=== PATIENT | female | born 1945 | race Caucasian/White ===

== ENCOUNTER 2022-04-24 19:10 | Emergency (ER) | payer MEDICARE, BC, SELFPAY ==
[2022-04-24 19:56] VITALS: BP 141/92; PULSE 82; RESP 18; TEMP 36.8; O2SAT 90; BMI 17.4
--- NOTE | 2022-04-24 20:39 | ED_ITS ---
HPI - General Adult General Chief complaint: Skin/Abscess/Foreign Body Stated complaint: Infected Skin Tears Time Seen by Provider: 04/24/22 20:30 History of Present Illness HPI narrative: Elderly female coming in today with concerns about infection and several skin tears. Patient states that she had a puppy scratch her lower leg about 1 week ago. About 2 days ago she noticed some increasing erythema around the scratch. She also has a skin tear to the left elbow that she sustained last night when hitting the door. She denies any pain in the elbow. Again states that her skin tears easily. She also has a couple more tears of the lower extremities from of being in the things. She has chronic lease edematous legs, she states that she elevates them at night when she sleeps and frequently throughout the day. She does not tolerate compression stockings. She denies any systemic symptoms today. Denies any drainage from the dog scratch. States that her immunizations are up-to-date. Related Data Home Medications Medication Instructions Recorded Confirmed albuterol sulfate 90 mcg/actuation INHALATION 04/24/22 aerosol inhaler (Ventolin HFA) budesonide 160 mcg-glycopyr 9 2 inh INHALATION QAM AND QPM 04/24/22 04/24/22 mcg-formot 4.8 mcg/actuation HFA inhaler (Breztri Aerosphere) Previous Rx's Medication Instructions Recorded cephalexin 500 mg capsule 500 mg PO TID 7 Days #21 cap 04/24/22 Allergies Allergy/AdvReac Type Severity Reaction Status Date / Time erythromycin base Allergy Intermediate dry heaves Verified 04/24/22 20:05 Penicillins Allergy Intermediate fainted Verified 04/24/22 20:05 tetanus toxoid, adsorbed Allergy Intermediate Verified 04/24/22 20:05 Review of Systems Status of ROS: Reports: 6 or more systems reviewed and unremarkable except as noted in History and below Exam Narrative: Exam Narrative: Thin, well-developed patient in no acute distress. Alert and oriented. Answers questions appropriately. Mood and affect are appropriate. Thoughts are goal oriented and rational. No tangential or magical thinking noted. Patient speaks in full sentences without needing to catch her breath. HEENT: Normocephalic atraumatic. Pupils are equally round reactive to light. Extraocular muscles are intact. Conjunctivae are moist without any icterus noted. Extremities: She has 2+ pitting edema bilaterally. On the left lower extremity she has a healing skin flap that has already started scabbing. Around it she has a small halo of erythema that is not hot to touch. The skin is not indurated or significantly swollen. She has a couple very superficial scratches on the same extremity. On the left elbow she has a superficial skin tear. No signs of infection noted. Const: Vital Signs, click to edit/add: Vital Signs - 24 hr 04/24/22 19:56 Temperature 98.2 F Pulse Rate [Left P ulse Oximeter] 82 Respiratory Rate 18 Blood Pressure [Ri ght Upper Arm] 141/92 H Pulse Oximetry 90 Course Vital Signs Vital signs: Initial Vital Signs Temperature 98.2 F 04/24/22 19:56 Temperature Source Temporal Artery Scan 04/24/22 19:56 Pulse Rate 82 04/24/22 19:56 Respiratory Rate 18 04/24/22 19:56 Blood Pressure 141/92 H 04/24/22 19:56 Blood Pressure Mean 108 04/24/22 19:56 Blood Pressure Position Sitting 04/24/22 19:56 Pulse Oximetry 90 04/24/22 19:56 Oxygen Delivery Method 04/24/22 19:56 Vital Signs Temperature 98.2 F 04/24/22 19:56 Pulse Rate 82 04/24/22 19:56 Respiratory Rate 18 04/24/22 19:56 Blood Pressure 141/92 H 04/24/22 19:56 Pulse Oximetry 90 04/24/22 19:56 Temperature 98.2 F 04/24/22 19:56 Pulse Rate 82 04/24/22 19:56 Respiratory Rate 18 04/24/22 19:56 Blood Pressure 141/92 H 04/24/22 19:56 Pulse Oximetry 90 04/24/22 19:56 Medical Decision Making MDM Narrative Medical decision making narrative: Elderly female with multiple skin tears. I discussed with her that I do not feel that any of them look infected at this time however we did outline the dog scratch and discuss that if erythema extends beyond this all itching go ahead start taking the antibiotic that will be called to the pharmacy for her. Otherwise she can continue to elevate her legs and treat symptomatically. We discussed wound hygiene. We discussed reasons to return for follow-up. She was agreeable had no other questions. We also did go ahead and re-dress her other wounds. Discharge Plan Discharge Clinical Impression: Skin tear Patient Disposition: Home, Self-Care Condition: Stable Additional Instructions: Your leg does not appear to be infected to day. However, if the redness starts increase beyond the drawn borders then okay to start antibiotic which has already been called and will be ready at the pharmacy for you. If redness stays within those boundaries you do not need to take an antibiotic. Make sure you clean your other wounds daily with soap and water and use an antibiotic cream such as Neosporin in all those areas. Continue to elevate your legs as much as you can throughout the day. Prescriptions: New cephalexin 500 mg capsule 500 mg PO TID 7 Days Qty: 21 0RF No Action albuterol sulfate [Ventolin HFA] 90 mcg/actuation HFA aerosol inhaler INHALATION 0RF Label Comments: INHALE 2 PUFFS BY MOUTH EVERY 4 HOURS NEEDED FOR WHEEZING AND FOR SHORTNESS OF BREATH Regancarlos manuel Aerosphere 160-9-4.8 mcg/actuation HFA aerosol inhaler 2 inh inhalation QAM AND QPM 0RF Stand Alone Forms: [employer] Info Instructions
--- NOTE | 2022-04-24 21:03 | PC.NURSE ---
wbc 27.[address] Kennedy
--- NOTE | 2022-04-25 19:31 | ED.NURSE ---
[facility] pharmacy called in regards to reaction between rx cephalexin and pt PCN allergy, consulted with MD Price - verbal to tell feleciahydaburgerick to not change abx order.
== END 2022-04-24 21:08 | disposition home or self-care (01) ==
PROVIDERS: Emergency Provider Family Medicine
DX: S81.812A Laceration without foreign body, left lower leg, initial encounter (principal); W54.8XXA Other contact with dog, initial encounter
CPT/HCPCS: 99283; 99284

== ENCOUNTER 2022-05-10 12:43 | Outpatient (CLI) | payer MEDICARE, BC, SELFPAY | END 2022-05-10 12:44 | disposition home or self-care (01) | LOC: WOUND 12:44 | PROVIDERS: Visit Provider Nurse Practitioner Family | DX: I87.312 Chronic venous hypertension (idiopathic) with ulcer of left lower extremity (principal); L97.822 Non-pressure chronic ulcer of other part of left lower leg with fat layer exposed; S51.002A Unspecified open wound of left elbow, initial encounter; I89.0 Lymphedema, not elsewhere classified | CPT/HCPCS: 11042; 97602; 99212 ==

== ENCOUNTER 2022-05-17 13:08 | Outpatient (CLI) | payer MEDICARE, BC, SELFPAY | END 2022-05-17 13:09 | disposition home or self-care (01) | LOC: WOUND 13:08 | PROVIDERS: Visit Provider Nurse Practitioner Family | DX: I87.312 Chronic venous hypertension (idiopathic) with ulcer of left lower extremity (principal); I89.0 Lymphedema, not elsewhere classified; L97.822 Non-pressure chronic ulcer of other part of left lower leg with fat layer exposed | CPT/HCPCS: 11042 ==

== ENCOUNTER 2022-05-24 10:56 | Outpatient (CLI) | payer MEDICARE, BC, SELFPAY | END 2022-05-24 10:57 | disposition home or self-care (01) | LOC: WOUND 10:56 | PROVIDERS: Visit Provider Nurse Practitioner Family | DX: I89.0 Lymphedema, not elsewhere classified (principal); I87.312 Chronic venous hypertension (idiopathic) with ulcer of left lower extremity; L97.829 Non-pressure chronic ulcer of other part of left lower leg with unspecified severity | CPT/HCPCS: 99212 ==

== ENCOUNTER 2022-07-20 11:12 | Outpatient (CLI) | payer MEDICARE, BC, SELFPAY | END 2022-07-20 11:13 | disposition home or self-care (01) | LOC: WOUND 11:13 | PROVIDERS: Visit Provider Nurse Practitioner Family | DX: S80.812A Abrasion, left lower leg, initial encounter (principal); K04.7 Periapical abscess without sinus | CPT/HCPCS: 99214 ==

== ENCOUNTER 2022-08-03 09:39 | Outpatient (CLI) | payer MEDICARE, BC, SELFPAY | END 2022-08-03 09:40 | disposition home or self-care (01) | LOC: WOUND 09:39 | PROVIDERS: PCP Nurse Practitioner Family; Visit Provider Physician Assistant Surgical | DX: S60.512A Abrasion of left hand, initial encounter (principal); W22.8XXA Striking against or struck by other objects, initial encounter; S80.812A Abrasion, left lower leg, initial encounter | CPT/HCPCS: 99213 ==

== ENCOUNTER 2022-08-10 09:31 | Outpatient (CLI) | payer MEDICARE, BC, SELFPAY | END 2022-08-10 09:32 | disposition home or self-care (01) | LOC: WOUND 09:31 | PROVIDERS: PCP Nurse Practitioner Family; Visit Provider Physician Assistant Surgical | DX: S60.512A Abrasion of left hand, initial encounter (principal) | CPT/HCPCS: 11042 ==

== ENCOUNTER 2022-08-17 12:48 | Outpatient (CLI) | payer MEDICARE, BC, SELFPAY | END 2022-08-17 12:49 | disposition home or self-care (01) | LOC: WOUND 12:48 | PROVIDERS: PCP Nurse Practitioner Family; Visit Provider Physician Assistant Surgical | DX: S80.812A Abrasion, left lower leg, initial encounter (principal) | CPT/HCPCS: 99213 ==

== ENCOUNTER 2022-12-17 20:27 | Inpatient (IN) | payer MEDICARE, BC, SELFPAY ==
[2022-12-17] VITALS (19 sets, daily range): BP systolic 150–172; BP diastolic 105–125; PULSE 82–105; RESP 24; TEMP 36.6; O2SAT 67–99; BMI 18.4
--- NOTE | 2022-12-17 20:57 | ED.GENADULT ---
HPI - General Adult General Time Seen by Provider: 20:57 Date Seen: 12/17/22 Chief complaint: Shortness of Breath/Dyspnea Stated complaint: Trouble Breathing,Fluid Retention Time Seen by Provider: 12/17/22 20:38 Source: patient and RN notes reviewed Mode of arrival: ambulatory Limitations: no limitations History of Present Illness HPI narrative: Patient is a 77-year-old female accompanied by a family member coming in with increased difficulty breathing, increased lower leg swelling. She states her legs usually are not that swollen, has probably been worsening at least over the last few days. She notes her legs are weeping fluid which they have not been known to do. Her breathing really worsened today. She is on home oxygen and does endorse new diagnosis of CHF with underlying COPD. She is on a diuretic and has been taking it. She feels like she is coughing more, producing clear sputum. She feels like she has been having increasing chest congestion the last couple of days for sure. The family member notes that 3 nights ago she called stating that she had chest heaviness like somebody was sitting on her chest. She declines any significant symptoms like that at this time. She has had no fevers. She came into the ER without oxygen and was in the 60s on arrival but rebounded quickly back up into the 90s with 2 L nasal cannula oxygen. Related Data Home Medications Medication Instructions Recorded Confirmed albuterol sulfate 90 mcg/actuation inhalation 04/24/22 aerosol inhaler (Ventolin HFA) budesonide 160 mcg-glycopyr 9 2 inh inhalation QAM AND QPM 04/24/22 12/17/22 mcg-formot 4.8 mcg/actuation HFA inhaler (Breztri Aerosphere) rosuvastatin 10 mg tablet 10 mg PO QPM 12/17/22 12/17/22 spironolactone 25 mg tablet 12.5 mg PO DAILY 12/17/22 12/17/22 torsemide 5 mg tablet 5 mg PO DAILY 12/17/22 12/17/22 Previous Rx's Medication Instructions Recorded cephalexin 500 mg capsule 500 mg PO TID 7 days #21 caps 04/24/22 Allergies Allergy/AdvReac Type Severity Reaction Status Date / Time erythromycin base Allergy Intermediate dry heaves Verified 04/24/22 20:05 Penicillins Allergy Intermediate fainted Verified 04/24/22 20:05 tetanus toxoid, adsorbed Allergy Intermediate Verified 04/24/22 20:05 Review of Systems Status of ROS: Reports: 10 or more systems reviewed and unremarkable except as noted in History and below PFSH [facility] Social History Smoking Status: Current every day smoker What tobacco products do you use: cigarettes How often do you have a drink containing alcohol: 4 or more times a week How many standard drinks containing alcohol do you have on a typical day: 1 or 2 How often do you have six or more drinks on one occasion: Never AUDIT-C Alcohol total score: 4 Non-prescribed substance use: denies use service: No Exam Const: Vital Signs, click to edit/add: Vital Signs - 24 hr 12/17/22 20:42 12/17/22 21:07 12/17/22 21:07 Temperature 97.8 F Pulse Rate Pulse Rate [Pulse Oximeter] 88 Respiratory Rate 24 Blood Pressure Blood Pressure [Le ft Upper Arm] 150/122 H Pulse Oximetry 99 98 97 Oxygen Delivery Me thod Nasal Cannula Nasal Cannula Oxygen Flow Rate 2 2 12/17/22 21:00 12/17/22 21:02 12/17/22 21:15 Temperature Pulse Rate 90 92 90 Pulse Rate [Pulse Oximeter] Respiratory Rate Blood Pressure 152/105 H Blood Pressure [Le ft Upper Arm] Pulse Oximetry 96 95 96 Oxygen Delivery Me thod Oxygen Flow Rate 12/17/22 21:30 12/17/22 21:32 12/17/22 21:45 Temperature Pulse Rate 91 90 86 Pulse Rate [Pulse Oximeter] Respiratory Rate Blood Pressure 168/125 H Blood Pressure [Le ft Upper Arm] Pulse Oximetry 96 95 97 Oxygen Delivery Me thod Oxygen Flow Rate 12/17/22 22:09 12/17/22 22:15 Temperature Pulse Rate 95 87 Pulse Rate [Pulse Oximeter] Respiratory Rate Blood Pressure Blood Pressure [Le ft Upper Arm] Pulse Oximetry 86 L 94 Oxygen Delivery Me thod Oxygen Flow Rate Documenting provider has reviewed patient's vital signs: yes Common normals: no apparent distress, average body habitus, oriented x3, no limitations and alert General appearance: cooperative, comfortable, well kempt and well developed Other: Has nasal cannula oxygen on, is doing some pursed lipped breathing in between talking to me. Certainly can manage long phrases. HENMT: Common normals: normocephalic, head/scalp atraumatic, hearing grossly normal bilaterally, external ears normal and external nose normal Head and scalp: normocephalic and atraumatic Nose: external nose normal External ear: external ears normal Eye: Common normals: PERRL, EOMs intact bilaterally, conjunctivae normal and no scleral icterus Conjunctiva: conjunctiva(e) normal Pupil: PERRL Neck & C-Spine: Common normals: full ROM, no lymphadenopathy, supple, no meningeal signs and thyroid normal Thyroid: thyroid normal Chest: Common normals: inspection of chest normal and palpation of chest normal Resp: Other: Has crackles bilateral bases, more diminished breath sounds up higher on her left posterior lung field in comparison to the right. Near the top of her right posterior lung field do hear some better but distant lung sounds. Cardio: Common normals: regular rate, regular rhythm, S1 normal heart sound, S2 normal heart sound, no gallops, no clicks and no murmurs Rate: regular rate Rhythm: regular rhythm Heart sounds: S1 normal and S2 normal GI: Common normals: Normal to inspection, nondistended, normoactive bowel sounds present, soft to palpation, non-tender, no hepatosplenomegaly and no masses Palpation: soft and no hepatosplenomegaly Extremity: Other: Has about 3+ pitting edema throughout both lower extremities. Note no overlying erythema, have no concerns about secondary infection at this time. Neuro: Common normals: oriented x3 and moves all extremities Sensorium/orientation: alert Meningeal signs: no meningeal signs Psych: Appearance: well kempt Course Course Hospital Course: Will maintain patient on oxygen here, cardiac monitoring and pulse oximetry. Will start with a portable chest x-ray looking for infectious etiology in CHF. She understands that we may need a chest CT. Will get a full complement of labs including labs for CHF, troponin, electrolytes, D-dimer. May need to consider treatment for COPD exacerbation, pneumonia, CHF. Obviously am considering thromboembolic disease as well as ischemic cardiac disease in this workup. Reevaluation(s) Reevaluation #1: Have reviewed with patient that this seems to be a fluid buildup for probable congestive heart failure at this time with peripheral edema. I am not sure when she has had a most recent echo, may need to be considered but will leave this to the hospitalist as I could not get an echo at this time anyway. She is responding to the IV Lasix and states she has already went to the bathroom twice. We reviewed that there is no pulmonary emboli and does not seem to be definitive infection in the lungs at this time. She is worried about missing her 's neurology appointment tomorrow but her son reassures her that he will be going. Reviewed with her that they certainly can call her via phone and conference her in. This seemed to settle her a bit. I do not think she is stable for discharge and certainly not medically stable to be managed outpatient. Time: 23:49 Consultations Consultation #1: Had spoken with Dr. Silva now and earlier about this patient. Her chest CT PE protocol is not showing any thromboembolic disease, no definitive evidence of infection. With her D-dimer being elevated in bilateral lower extremity edema, bilateral lower extremity ultrasounds may need to be considered. Legs look quite symmetric, seems to be more edema with the weeping she is having. I feel that ultrasounds certainly could be done tomorrow do not feel that the clockmaker apprentice needs to come in emergently overnight. The hospitalists was given my thoughts on this, he states that they will take care of any subsequent imaging. Time: 23:44 Vital Signs Vital signs: Initial Vital Signs Temperature 97.8 F 12/17/22 20:42 Temperature Source Temporal Artery Scan 12/17/22 20:42 Pulse Rate 88 12/17/22 20:42 Respiratory Rate 24 12/17/22 20:42 Blood Pressure 150/122 H 12/17/22 20:42 Blood Pressure Mean 131 12/17/22 20:42 Pulse Oximetry 99 12/17/22 20:42 Oxygen Delivery Method 12/17/22 20:42 Oxygen Flow Rate 2 12/17/22 20:42 Vital Signs Temperature 97.8 F 12/17/22 20:42 Pulse Rate 88 12/17/22 20:42 Respiratory Rate 24 12/17/22 20:42 Blood Pressure 150/122 H 12/17/22 20:42 Pulse Oximetry 99 12/17/22 20:42 Oxygen Delivery Method 12/17/22 20:42 Oxygen Flow Rate 2 12/17/22 20:42 Temperature 97.8 F 12/17/22 20:42 Pulse Rate 87 12/17/22 22:15 Respiratory Rate 24 12/17/22 20:42 Blood Pressure 168/125 H 12/17/22 21:32 Pulse Oximetry 94 12/17/22 22:15 Oxygen Delivery Method 12/17/22 21:07 Oxygen Flow Rate 2 12/17/22 21:07 Medical Decision Making Lab Data Labs: Lab Results 12/17/22 12/17/22 12/17/22 Range/Units 21:20 21:20 21:20 WBC 5.73 (4.50-11.00) K/uL RBC 5.20 (4.00-5.20) m/uL Hgb 14.0 (12.0-16.0) gm/dL Hct 45.5 (33.0-51.0) % MCV 88 (80-100) fL MCH 27 (26-34) pg MCHC 31 L (32-36) gm/dL RDW Coeff of Lane 25.1 H (11.5-15.5) % Plt Count 141 (140-440) K/uL Neut % (Auto) 71.4 (42.0-72.0) % Lymph % (Auto) 15.0 L (20-44) % [place] % (Auto) 11.7 H (0.0-11.0) % Eos % (Auto) 1.4 (0.0-7.0) % Baso % (Auto) 0.3 (0.0-3.0) % Neut # (Auto) 4.09 (1.7-7.0) K/uL Lymph # (Auto) 0.90 (0.90-2.90) K/uL [place] # (Auto) 0.70 (0.00-0.90) K/UL Eos # (Auto) 0.08 (0.00-0.50) K/uL Baso # (Auto) 0.02 (0.00-0.30) K/uL D-Dimer Quant (PE/DVT) 2.48 H (0.00-0.50) ug/ml VBG pH (7.32-7.43) VBG pCO2 (40-50) mmHG VBG pO2 (25-47) mmHG VBG HCO3 (21-28) mmol/L Sodium 133 L (135-149) mmol/L Potassium 4.2 (3.6-5.1) mmol/L Chloride 101 (96-114) mmol/L Carbon Dioxide 31 (20-32) mmol/L BUN 17 (7-30) mg/dL Creatinine 0.6 (0.5-1.5) mg/dL Estimated Creat Clear 35.09 Estimated GFR 92 ml/min Glucose 103 (60-115) mg/dL Lactate (0.5-1.9) mmol/L Calcium 8.4 (8.4-10.6) mg/dL Magnesium 2.2 (1.5-2.6) mg/dL Total Bilirubin 0.6 (0.1-1.5) mg/dL AST 30 (12-35) U/L ALT 22 (4-35) U/L Alkaline Phosphatase 84 (40-150) U/L C-Reactive Protein 1.1 H (0.5-1.0) mg/dL NT-Pro-B Natriuret Pep 9990 pg/mL Total Protein 6.2 (6.0-8.3) g/dL Albumin 3.5 (3.3-5.0) g/dL Procalcitonin 0.09 (<0.50) ng/mL SARS-CoV-2 (PCR) (Negative) Influenza Type A (PCR) (Negative) Influenza Type B (PCR) (Negative) RSV (PCR) (Negative) POC Troponin I (0.01-0.04) ng/ml 12/17/22 12/17/22 12/17/22 Range/Units 21:20 21:20 21:20 WBC (4.50-11.00) K/uL RBC (4.00-5.20) m/uL Hgb (12.0-16.0) gm/dL Hct (33.0-51.0) % MCV (80-100) fL MCH (26-34) pg MCHC (32-36) gm/dL RDW Coeff of Lane (11.5-15.5) % Plt Count (140-440) K/uL Neut % (Auto) (42.0-72.0) % Lymph % (Auto) (20-44) % [place] % (Auto) (0.0-11.0) % Eos % (Auto) (0.0-7.0) % Baso % (Auto) (0.0-3.0) % Neut # (Auto) (1.7-7.0) K/uL Lymph # (Auto) (0.90-2.90) K/uL [place] # (Auto) (0.00-0.90) K/UL Eos # (Auto) (0.00-0.50) K/uL Baso # (Auto) (0.00-0.30) K/uL D-Dimer Quant (PE/DVT) (0.00-0.50) ug/ml VBG pH 7.350 (7.32-7.43) VBG pCO2 58 H (40-50) mmHG VBG pO2 41.2 (25-47) mmHG VBG HCO3 32 H (21-28) mmol/L Sodium (135-149) mmol/L Potassium (3.6-5.1) mmol/L Chloride (96-114) mmol/L Carbon Dioxide (20-32) mmol/L BUN (7-30) mg/dL Creatinine (0.5-1.5) mg/dL Estimated Creat Clear Estimated GFR ml/min Glucose (60-115) mg/dL Lactate 0.6 (0.5-1.9) mmol/L Calcium (8.4-10.6) mg/dL Magnesium (1.5-2.6) mg/dL Total Bilirubin (0.1-1.5) mg/dL AST (12-35) U/L ALT (4-35) U/L Alkaline Phosphatase (40-150) U/L C-Reactive Protein (0.5-1.0) mg/dL NT-Pro-B Natriuret Pep pg/mL Total Protein (6.0-8.3) g/dL Albumin (3.3-5.0) g/dL Procalcitonin (<0.50) ng/mL SARS-CoV-2 (PCR) Negative SARS-CoV-2 (Negative) Influenza Type A (PCR) Negative PCR FLU A (Negative) Influenza Type B (PCR) Negative PCR FLU B (Negative) RSV (PCR) Negative PCR RSV (Negative) POC Troponin I 0.02 (0.01-0.04) ng/ml Imaging Data Chest x-ray: Attestation: I have reviewed the pertinent imaging results. Radiologist's impression: Patient: COLLETTE RAY Facility:?[facility] Patient ID:?[id number] Site Patient ID:?[id number]. Site :?[id number] Study:?XRay Chest ap portable-12/17/2022 9:34:51 PM Ordering Physician:Rigoberto Adame Final Report: INDICATION: .SOB, hx of CHF/COPD TECHNIQUE: Chest 1 views. COMPARISON: September 2019. FINDINGS: Lungs: Normal lung volume. No consolidation. Vascular redistribution. Left basilar atelectasis. Pleura: Small left pleural effusion. Heart and Mediastinum: Cardiomegaly. Atherosclerotic aorta. Bones: No acute displaced osseous process. Abdominal aortic stent graft. IMPRESSION: Left basilar atelectasis. Superimposed infection is considered in the differential if clinically warranted. Small left pleural effusion. Dictated by Rod Hauser MD @ 12/17/2022 9:49:00 PM (Electronic Signature) CT scan - chest: Attestation: I have reviewed the pertinent imaging results. Radiologist's impression: Patient: COLLETTE RAY Facility:?[facility] Patient ID:?[id number] Site Patient ID:?[id number]. Site :?[id number] Study:?CT Chest Angio with 95cc [id number] PE Protocol-12/17/2022 11:08:07 PM Ordering Physician:Rigoberto Adame Final Report: INDICATION: .SOB, ELEVATED D DIMER TECHNIQUE: CT chest PE was acquired with 95 cc Isovue 370 IV contrast. COMPARISON: CTs summer 2018 FINDINGS: Pulmonary Arteries: No CT evidence of pulmonary thromboembolic disease. Pulmonary trunk enlargement suggestive of pulmonary artery hypertension. Heart and Mediastinum: The visualized portions of the thyroid are normal. No axillary or supraclavicular lymphadenopathy. No mediastinal, hilar or retrocrural lymphadenopathy. Cardiomegaly. Ectasia of the ascending aorta. Tiny ulcer like projection in the aortic arch. Atherosclerotic calcifications of the aorta and its branches. Coronary artery calcifications. Mitral annular calcifications. Perirenal abdominal aortic aneurysm with fenestrated aortic stent graft extending inferiorly off the field of view. Lungs and Airways: Centrilobular emphysema. No mass or consolidation. Biapical subpleural fibrosis. Trace. Basilar subsegmental atelectasis. Dependent predominant areas of peripheral endobronchial mucous plugging. Retained tracheal secretions. Pleura: Small left and trace right pleural effusions. Abdomen: The visualized upper abdominal organs are unremarkable. Bones and soft tissues: L2 Schmorl`s node deformity. Interval complete collapse of the T5 vertebral body, age indeterminate. IMPRESSION: 1. No CT evidence of pulmonary thromboembolic disease. 2. No intrathoracic mass or consolidation. 3. Basilar subsegmental areas of atelectasis with associated peripheral endobronchial mucous plugging. 4. Interval complete collapse of the T5 vertebral body, age indeterminate. Recommend correlation with localized physical exam to assess for focal tenderness to palpation and chronicity. Please note that all CT scans at this facility use dose modulation, iterative reconstruction, and/or weight-based dosing when appropriate to reduce radiation dose to as low as reasonably achievable. Dictated by Rod Hauser MD @ 12/17/2022 11:40:25 PM (Electronic Signature) ECG Data Attestation: I personally reviewed and interpreted this ECG as follows: (Normal sinus rhythm, 90 beats per minute. Probable right bundle branch block. Nonspecific T-wave changes.) Prior ECG tracings: not available for review Critical Care Time Critical Care Time Critical Care Time: No Discharge Plan Discharge Clinical Impression: Congestive heart failure Patient Disposition: Admitted As Inpatient Condition: Unchanged Prescriptions: No Action albuterol sulfate [Ventolin HFA] 90 mcg/actuation HFA aerosol inhaler INHALATION Label Comments: INHALE 2 PUFFS BY MOUTH EVERY 4 HOURS NEEDED FOR WHEEZING AND FOR SHORTNESS OF BREATH Brenikolastri Aerosphere 160-9-4.8 mcg/actuation HFA aerosol inhaler 2 inh inhalation QAM AND QPM cephalexin 500 mg capsule 500 mg PO TID 7 Days Qty: 21 0RF spironolactone 25 mg tablet 12.5 mg PO DAILY torsemide 5 mg tablet 5 mg PO DAILY rosuvastatin 10 mg tablet 10 mg PO QPM Follow Up/Referrals: ySlvia Guillen MD [Staff Physician] -
--- NOTE | 2022-12-17 21:08 | CRLHL7_ITS ---
For Patients: As a result of the Century Cures Act, medical imaging exams and procedure reports are released immediately into your electronic medical record. You may view this report before your referring provider. If you have questions, please contact your health care provider. INDICATION: .SOB, hx of CHF/COPD TECHNIQUE: Chest 1 views. COMPARISON: September 2019. FINDINGS: Lungs: Normal lung volume. No consolidation. Vascular redistribution. Left basilar atelectasis. Pleura: Small left pleural effusion. Heart and Mediastinum: Cardiomegaly. Atherosclerotic aorta. Bones: No acute displaced osseous process. Abdominal aortic stent graft. IMPRESSION: Left basilar atelectasis. Superimposed infection is considered in the differential if clinically warranted. Small left pleural effusion. Dictated by Rod Hauser MD @ 12/17/2022 9:49:00 PM (Electronically Signed)
[2022-12-17 21:25] LABS: HCO3 VBG 32 mmol/L (21-28); Lactate* 0.6 mmol/L (0.5-1.9); PCO2 VBG 58 mmHG (40-50); PO2 VBG 41.2 mmHG (25-47)
[2022-12-17 21:26] LABS: Basophils Absolute Auto 0.02 K/uL (0.00-0.30); Basophils Percent Auto 0.3 % (0.0-3.0); Eosinophils Absolute Auto 0.08 K/uL (0.00-0.50); Eosinophils Percent Auto 1.4 % (0.0-7.0); Hematocrit 45.5 % (33.0-51.0); Immature Granulocytes Abs Auto 0.01 K/uL (0.00-0.30); Immature Granulocytes Pct Auto 0.2 %; Mean Corpuscular HGB Conc 31 gm/dL (32-36); Mean Corpuscular Hemoglobin 27 pg (26-34); Mean Corpuscular Volume 88 fL (80-100); Monocytes Percent Auto 11.7 % (0.0-11.0); Neutrophils Absolute Auto 4.09 K/uL (1.7-7.0); Neutrophils Percent Auto 71.4 % (42.0-72.0); Platelet Count* 141 K/uL (140-440); RDW Coefficient of Variation % 25.1 % (11.5-15.5); White Blood Count* 5.73 K/uL (4.50-11.00)
[2022-12-17 21:29] LABS: Slide Review Reflex No
[2022-12-17 21:34] LABS: Troponin, Point-of-Care* 0.02 ng/ml (0.01-0.04)
[2022-12-17 21:44] LABS: Albumin* 3.5 g/dL (3.3-5.0); Chloride* 101 mmol/L (96-114)
[2022-12-17 21:45] LABS: Potassium* 4.2 mmol/L (3.6-5.1); Sodium* 133 mmol/L (135-149)
[2022-12-17 21:46] LABS: D Dimer Quantitative* 2.48 ug/ml (0.00-0.50)
[2022-12-17 21:47] LABS: Alkaline Phosphatase* 84 U/L (40-150); Aspartate Amino Transferase* 30 U/L (12-35); Bilirubin Total* 0.6 mg/dL (0.1-1.5); Blood Urea Nitrogen* 17 mg/dL (7-30); Carbon Dioxide* 31 mmol/L (20-32); Creatinine* 0.6 mg/dL (0.5-1.5); Est. Creatinine Clearance* 35.09; Estimated Glomerular Filt Rate 92 ml/min; Total Protein* 6.2 g/dL (6.0-8.3)
[2022-12-17 21:48] LABS: Alanine Aminotransferase* 22 U/L (4-35); Calcium* 8.4 mg/dL (8.4-10.6); Glucose* 103 mg/dL (60-115); Magnesium* 2.2 mg/dL (1.5-2.6)
[2022-12-17 21:50] LABS: C Reactive Protein* 1.1 mg/dL (0.5-1.0)
[2022-12-17 22:04] LABS: PCR FLU A Negative PCR FLU A (Negative); PCR FLU B Negative PCR FLU B (Negative); PCR RSV Negative PCR RSV (Negative); Procalcitonin* 0.09 ng/mL (<0.50)
--- NOTE | 2022-12-17 22:10 | CRLHL7_ITS ---
For Patients: As a result of the Century Cures Act, medical imaging exams and procedure reports are released immediately into your electronic medical record. You may view this report before your referring provider. If you have questions, please contact your health care provider. INDICATION: .SOB, ELEVATED D DIMER TECHNIQUE: CT chest PE was acquired with 95 cc Isovue 370 IV contrast. COMPARISON: CTs summer 2018 FINDINGS: Pulmonary Arteries: No CT evidence of pulmonary thromboembolic disease. Pulmonary trunk enlargement suggestive of pulmonary artery hypertension. Heart and Mediastinum: The visualized portions of the thyroid are normal. No axillary or supraclavicular lymphadenopathy. No mediastinal, hilar or retrocrural lymphadenopathy. Cardiomegaly. Ectasia of the ascending aorta. Tiny ulcer like projection in the aortic arch. Atherosclerotic calcifications of the aorta and its branches. Coronary artery calcifications. Mitral annular calcifications. Perirenal abdominal aortic aneurysm with fenestrated aortic stent graft extending inferiorly off the field of view. Lungs and Airways: Centrilobular emphysema. No mass or consolidation. Biapical subpleural fibrosis. Trace. Basilar subsegmental atelectasis. Dependent predominant areas of peripheral endobronchial mucous plugging. Retained tracheal secretions. Pleura: Small left and trace right pleural effusions. Abdomen: The visualized upper abdominal organs are unremarkable. Bones and soft tissues: L2 Schmorl`s node deformity. Interval complete collapse of the T5 vertebral body, age indeterminate. IMPRESSION: 1. No CT evidence of pulmonary thromboembolic disease. 2. No intrathoracic mass or consolidation. 3. Basilar subsegmental areas of atelectasis with associated peripheral endobronchial mucous plugging. 4. Interval complete collapse of the T5 vertebral body, age indeterminate. Recommend correlation with localized physical exam to assess for focal tenderness to palpation and chronicity. Please note that all CT scans at this facility use dose modulation, iterative reconstruction, and/or weight-based dosing when appropriate to reduce radiation dose to as low as reasonably achievable. Dictated by Rod Hauser MD @ 12/17/2022 11:40:25 PM (Electronically Signed)
[2022-12-17 22:14] LABS: SARS PCR* Negative SARS-CoV-2 (Negative)
[2022-12-17 22:30] LABS: NT Pro B Type NatriureticPept* 9990 pg/mL
[2022-12-17] MEDS: FUROSEMIDE 10 MG/ML inj 40 MG IVP (23:11)
[2022-12-18] VITALS (10 sets, daily range): BP systolic 114–152; BP diastolic 70–115; PULSE 81–106; RESP 16–24; TEMP 36.5–37.3; O2SAT 91–98; BMI 18.4
--- NOTE | 2022-12-18 00:23 | ED.NURSE ---
Patient has been using bedside commode. Emptied 800ml clear urine following lasix administration.
--- NOTE | 2022-12-18 03:18 | P.IMCN_ITS ---
Date of Consult Consult date: 12/18/22 Primary Care Provider: Not a Local Provider Consult Narrative Narrative: Marty Rivera is a 77 year old female With past medical history of shortness of breath with lower extremity edema with underlying CHF and COPD who presented to the ED with difficulty breathing. Her shortness of breath started about 4-5 days ago. She has 2 L of oxygen at night to which she normally use but since about 2 days ago she had ran out of her oxygen. She states she is also have increasing sputum production that is clear and lower extremity edema. She also noted swelling of the lower legs with redness. 2 weeks ago her tried to cut her toenail but accidentally cut his skin with noted a wound. She denies any fever chills nausea vomiting abdominal pain. She stated she still smokes 8 cigarettes a day to which she attempted to quit in the past without success. She is willing to have nicotine gum as needed. while in hospital. In the ED, CBC with differential showed no leukocytosis with WBC of 5.7, hemoglobin of 14.0, platelet of 141. Sodium of 133, creatinine of 0.6, lactate of 0.6 CTA showed no evidence of PE, no intrathoracic mass or consolidation, basilar subsegmental area of atelectasis with associated peripheral endotracheal mucous plug. Interval complete collapse of the T5 vertebral body age undetermined, CRP of 1.1, procalcitonin is 0.09. LFTs are within normal limits Patient had lower extremity edema in the ED therefore was given 40 mg of IV Lasix in the ED. It was requested for the patient to be admitted for further evaluation and treatment as patient exhibiting acute hypoxemic respiratory failure requiring 1 L of oxygen concerning for acute decompensated heart failure. Review of Systems Narrative: As above otherwise negative [facility] Social History Smoking Status: Current every day smoker What tobacco products do you use: cigarettes How often do you have a drink containing alcohol: 4 or more times a week How many standard drinks containing alcohol do you have on a typical day: 1 or 2 How often do you have six or more drinks on one occasion: Never AUDIT-C Alcohol total score: 4 Non-prescribed substance use: denies use service: No Meds Home Medications and Allergies Home Medications Medication Instructions Recorded Confirmed Type albuterol sulfate 90 mcg/actuation inhalation 04/24/22 History aerosol inhaler (Ventolin HFA) budesonide 160 mcg-glycopyr 9 2 inh inhalation QAM AND QPM 04/24/22 12/17/22 History mcg-formot 4.8 mcg/actuation HFA inhaler (Breztri Aerosphere) rosuvastatin 10 mg tablet 10 mg PO QPM 12/17/22 12/17/22 History spironolactone 25 mg tablet 12.5 mg PO DAILY 12/17/22 12/17/22 History torsemide 5 mg tablet 5 mg PO DAILY 12/17/22 12/17/22 History Allergies Allergy/AdvReac Type Severity Reaction Status Date / Time erythromycin base Allergy Intermediate dry heaves Verified 04/24/22 20:05 Penicillins Allergy Intermediate fainted Verified 04/24/22 20:05 tetanus toxoid, adsorbed Allergy Intermediate Verified 04/24/22 20:05 Exam Narrative: Exam Narrative: Exam (performed via interactive video with assistance of bedside nurse): General: [alert, cooperative, no acute distress] HEENT: [Pupils reported ERRL] [, oral mucosa pink and moist without erythema] Lungs: [clear to auscultation bilaterally without crackle or wheeze] CV: [regular rate and rhythm without loud murmur rub or gallop] Abd: [bowel sounds present, denies tenderness and does not exhibit signs of pain with palpation done by bedside nurse] Ext: [no pitting edema noted] Skin: red warm to touch with mild tender to palpation with righ 1st and 2nd toe escar] Neuro: [alert, oriented x 3. CN III -VII, XI, XII grossly intact, moves all extremities without any significant focal deficit appreciated by nurse] Const: Vital Signs, click to edit/add: Vital Signs - 24 hr 12/17/22 20:42 12/17/22 21:07 12/17/22 21:07 Temperature 97.8 F Pulse Rate Pulse Rate [Pulse Oximeter] 88 Respiratory Rate 24 Blood Pressure Blood Pressure [Le ft Arm] Blood Pressure [Le ft Upper Arm] 150/122 H Pulse Oximetry 99 98 97 Oxygen Delivery Me thod Nasal Cannula Nasal Cannula Oxygen Flow Rate 2 2 12/17/22 21:00 12/17/22 21:02 12/17/22 21:15 Temperature Pulse Rate 90 92 90 Pulse Rate [Pulse Oximeter] Respiratory Rate Blood Pressure 152/105 H Blood Pressure [Le ft Arm] Blood Pressure [Le ft Upper Arm] Pulse Oximetry 96 95 96 Oxygen Delivery Me thod Oxygen Flow Rate 12/17/22 21:30 12/17/22 21:32 12/17/22 21:45 Temperature Pulse Rate 91 90 86 Pulse Rate [Pulse Oximeter] Respiratory Rate Blood Pressure 168/125 H Blood Pressure [Le ft Arm] Blood Pressure [Le ft Upper Arm] Pulse Oximetry 96 95 97 Oxygen Delivery Me thod Oxygen Flow Rate 12/17/22 22:09 12/17/22 22:15 12/17/22 22:30 Temperature Pulse Rate 95 87 87 Pulse Rate [Pulse Oximeter] Respiratory Rate Blood Pressure Blood Pressure [Le ft Arm] Blood Pressure [Le ft Upper Arm] Pulse Oximetry 86 L 94 94 Oxygen Delivery Me thod Oxygen Flow Rate 12/17/22 22:32 12/17/22 22:45 12/17/22 23:00 Temperature Pulse Rate 82 87 105 H Pulse Rate [Pulse Oximeter] Respiratory Rate Blood Pressure 162/113 H Blood Pressure [Le ft Arm] Blood Pressure [Le ft Upper Arm] Pulse Oximetry 94 95 67 L Oxygen Delivery Me thod Oxygen Flow Rate 12/17/22 23:02 12/17/22 23:15 12/17/22 23:30 Temperature Pulse Rate 101 H 93 90 Pulse Rate [Pulse Oximeter] Respiratory Rate Blood Pressure 166/115 H Blood Pressure [Le ft Arm] Blood Pressure [Le ft Upper Arm] Pulse Oximetry 83 L 95 98 Oxygen Delivery Me thod Oxygen Flow Rate 12/17/22 23:32 12/17/22 23:45 12/18/22 01:10 Temperature Pulse Rate 97 Pulse Rate [Pulse Oximeter] 96 Respiratory Rate 24 Blood Pressure 172/116 H Blood Pressure [Le ft Arm] 152/115 H Blood Pressure [Le ft Upper Arm] Pulse Oximetry 89 91 Oxygen Delivery Me thod Nasal Cannula Oxygen Flow Rate 1 Labs Labs: Short CBC 12/17/22 Range/Units 21:20 WBC 5.73 (4.50-11.00) K/uL Hgb 14.0 (12.0-16.0) gm/dL Hct 45.5 (33.0-51.0) % Plt Count 141 (140-440) K/uL BMP 12/17/22 21:20 Sodium 133 L Potassium 4.2 Chloride 101 Carbon Dioxide 31 BUN 17 Creatinine 0.6 Glucose 103 Calcium 8.4 Liver Function 12/17/22 Range/Units 21:20 Total Bilirubin 0.6 (0.1-1.5) mg/dL AST 30 (12-35) U/L ALT 22 (4-35) U/L Alkaline Phosphatase 84 (40-150) U/L Albumin 3.5 (3.3-5.0) g/dL Assessment and Plan Assessment and plan (1) Congestive heart failure: Status: Acute Plan #Acute hypoxemic respiratory failure, CTA PE is negative for PE on admission suspecting secondary to acute decompensated heart failure versus COPD exacerbation and component with mucous plug #COPD on chronic oxygen of 2 L at night recently ran out of oxygen prior to admission #Tobacco abuse 8 cigarettes a day #Hypertension #Hyperlipidemia #Suspecting acute on chronic HFpEF #Possible lower extremity cellulitis with right first and second toe infection - We will admit with blood culture obtain, - -start on doxycycline as well as ceftriaxone for COPD exacerbation as well as lower extremity cellulitis - Smoking cessation advised - -We will start on Lasix 20 mg a day with dose titrating based on volume sta tus and renal function and electrolytes - -Check echo, check TSH hemoglobin A1c - -Check sputum culture, check lower extremity Doppler - Consult respiratory for chest physiotherapy for mucous plug - CODE STATUS discussed with patient patient would like to be full code at this time - As needed nicotine gum - -DVT prophylaxis with heparin subcu
[2022-12-18] MEDS: HEPARIN 5,000 UNIT/0.5 ML INJ 5000 UNIT IV (04:16)
[2022-12-18] MEDS: FUROSEMIDE 10 MG/ML inj 20 MG IVP (04:16)
[2022-12-18] MEDS: cefTRIAXone 2 GM in 0.9 % SODIUM CHLORIDE Mini-bag 100 ML IVPB (04:16)
[2022-12-18] MEDS: DOXYCYCLINE HYCLATE 100 MG in 0.9 % SODIUM CHLORIDE Mini-bag 100 ML IVPB (05:33)
--- NOTE | 2022-12-18 06:49 | PC.NURSE ---
: pt to floor at 0100 accompanied by nizta Ott. Pt indep in room. Lasix given, 2300mL urine output. Requiring 1.5L O2 to maintain sats >88%. Pt does desat to low 80s with activity, rebounds quickly with rest.?Occasional productive cough, clear sputum per pt, awaiting sputum culture collection, sample cup at bedside, pt aware. 3+ pitting edema to bilat LE, redness noted to both LE, pt c/o tenderness when palpated. Left extremity weeping at several sites. Bilat LE elevated. Wound culture from right great toe sent to lab for culture. Pt states this wound is from her accidentally cutting her skin when trimming her toenails. ?
[2022-12-18 07:03] LABS: Hemoglobin A1C* 5.14 % (0-5.6)
[2022-12-18 07:18] LABS: C Reactive Protein* 1.1 mg/dL (0.5-1.0)
[2022-12-18 08:10] LABS: Free T4 Free Thyroxine* 1.19 ng/dL (0.70-1.85)
[2022-12-18 09:56] LABS: Basophils Absolute Auto 0.02 K/uL (0.00-0.30); Basophils Percent Auto 0.3 % (0.0-3.0); Eosinophils Absolute Auto 0.08 K/uL (0.00-0.50); Eosinophils Percent Auto 1.3 % (0.0-7.0); Hematocrit 50.9 % (33.0-51.0); Hemoglobin* 15.6 gm/dL (12.0-16.0); Lymphocytes Percent Auto 12.8 % (20-44); Mean Corpuscular HGB Conc 31 gm/dL (32-36); Mean Corpuscular Hemoglobin 27 pg (26-34); Mean Corpuscular Volume 88 fL (80-100); Monocytes Percent Auto 11.5 % (0.0-11.0); Neutrophils Percent Auto 74.1 % (42.0-72.0); Platelet Count* 161 K/uL (140-440); RDW Coefficient of Variation % 25.4 % (11.5-15.5); Red Blood Count 5.78 m/uL (4.00-5.20); White Blood Count* 6.24 K/uL (4.50-11.00)
[2022-12-18 09:58] LABS: Chloride* 95 mmol/L (96-114); Potassium* 3.8 mmol/L (3.6-5.1); Slide Review Reflex No; Sodium* 137 mmol/L (135-149)
[2022-12-18 10:01] LABS: Blood Urea Nitrogen* 16 mg/dL (7-30); Carbon Dioxide* 36 mmol/L (20-32); Creatinine* 0.7 mg/dL (0.5-1.5); Est. Creatinine Clearance* 35.09; Estimated Glomerular Filt Rate 89 ml/min; Glucose* 96 mg/dL (60-115)
[2022-12-18 10:02] LABS: Calcium* 8.8 mg/dL (8.4-10.6); Magnesium* 2.2 mg/dL (1.5-2.6)
[2022-12-18] MEDS: POTASSIUM CHLORIDE 10 MEQ CAPSULE ER 20 MEQ PO ×2 (10:09→17:49)
[2022-12-18] MEDS: FUROSEMIDE 10 MG/ML inj 40 MG IVP ×2 (10:10→13:55)
--- NOTE | 2022-12-18 10:15 | CRLHL7_ITS ---
For Patients: As a result of the Century Cures Act, medical imaging exams and procedure reports are released immediately into your electronic medical record. You may view this report before your referring provider. If you have questions, please contact your health care provider. INDICATION: Leg pain and swelling. TECHNIQUE: Ultrasound venous duplex bilateral lower extremity. Compression venous exam was performed using hester-scale, color Doppler, and spectral Doppler analysis. COMPARISON: None. FINDINGS: Deep veins: Sonographic imaging demonstrates the bilateral common femoral, deep femoral, superficial femoral, popliteal, and posterior tibial veins to be fully compressible with normal color Doppler blood flow. Superficial veins: Greater saphenous vein is fully compressible. No popliteal cyst. IMPRESSION: No sign of deep venous thrombosis. Dictated by Herberth Baez MD @ 12/18/2022 1:21:33 PM (Electronically Signed)
[2022-12-18 10:20] LABS: NT Pro B Type NatriureticPept* 10200 pg/mL
--- NOTE | 2022-12-18 10:45 | P.IMHP_ITS ---
Hospitalist- H&P: HPI History of Present Illness Date Seen: 12/18/22 Chief complaint: Trouble Breathing,Fluid Retention Narrative: Marty Rivera is a 77 year old female with past medical history of COPD, ALLIE, active tobacco use disorder, fibromyalgia, chronic back pain, COVID 19, Depress ion presenting for evaluation of SOB. The patient has endorsed increased bilateral lower extremity edema over the last week. She also has had worsening SOB and cough. Her cough is mostly dry. She denies chest pain, palpitations, fever. She is not on home oxygen. 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 She continues to smoke about 8 cigarrettes per day. She presented to the ED where CT PE was negative for PE, mass, consolidation. Procal 0.09[place] [address].WBC WNL. In the ED she was given 40 mg IV lasix and admitted for further evaluation. IMPRESSION: 1. No CT evidence of pulmonary thromboembolic disease. 2. No intrathoracic mass or consolidation. 3. Basilar subsegmental areas of atelectasis with associated peripheral endobronchial mucous plugging. 4. Interval complete collapse of the T5 vertebral body, age indeterminate. Recommend correlation with localized physical exam to assess for focal tenderness to palpation and chronicity. EKG-NSR Medical Hx Surgical History Surgical History Surgery Date Site/Laterality Comments OTHER CONVERTED SHX (SEE COMMENT) 01/08/2002 N/A >Colonoscopy with Biopsy ? STENT GRAFT ENDOVASCULAR THORACOABDOMINAL AORTA 05/04/2019 N/A Procedure: STENT GRAFT ENDOVASCULAR THORACOABDOMINAL AORTA, JENNIFER [id number], Endovascular repair complex abdominal aortic aneurysm using patient-specific fenestrated branched stent graft, Proximal component, four fenestrations for Celiac, SMA, bilateral renal arteries, Distal bifucated universal device, left iliac limb extention, Prep both groins, Percutaneous approach.; Surgeon: Tyson Liao,? Medical devices from this surgery are in the Medical Devices section.? DIAGNOSTIC AORTOGRAM ABDOMEN 05/04/2019 N/A Procedure: IR Abdominal Aortogram.; Surgeon: Tyson Liao M.D.; Location: [facility]? Medical devices from this surgery are in the Medical Devices section.? STENT GRAFT RENAL AND/OR MESENTERIC BRANCH 05/04/2019 Bilateral Procedure: STENT GRAFT RENAL AND/OR MESENTERIC BRANCH.; Surgeon: Tysno Liao M.D.; Location: [facility]? Medical devices from this surgery are in the Medical Devices section.? Medical History Medical History Medical History Date Comments Degeneration Macular ? ? Cataract ? ? Irritable Bowel Syndrome Without Diarrhea ? ? Concussion Loss Of Consciousness Unspecified Duration Initial ? ? Fibromyalgia ? ? Chronic Obstructive Pulmonary Disease (HCC) ? ? Asthma NOS ? ? Family History Family History Medical History Relation Name Comments Breast cancer Mother ? ? Family History Relation Name Status Comments Mother ? ? ? Social History Social History Tobacco Use Types Packs/Day Years Used Date Smoking Tobacco: Every Day Cigarettes 0.8 40 ? Smokeless Tobacco: Never Review of Systems Status of ROS: Reports: 10 or more systems reviewed and unremarkable except as noted in History and below PFSH PFSH Social History Smoking Status: Current every day smoker What tobacco products do you use: cigarettes Smoking packs per day: 0.5 Smoking cigarettes per day: 10.0 Do you use any of these nicotine containing products: None Second hand tobacco smoke exposure: No How often do you have a drink containing alcohol: 4 or more times a week Alcohol type: wine Alcohol type details: 1 glass of wine a night How many standard drinks containing alcohol do you have on a typical day: 1 or 2 How often do you have six or more drinks on one occasion: Never AUDIT-C Alcohol total score: 4 Non-prescribed substance use: denies use Caffeine: No service: No Meds Home Medications and Allergies Home Medications Medication Instructions Recorded Confirmed Type albuterol sulfate 90 mcg/actuation 2 puff inhalation Q4H PRN 04/24/22 12/18/22 History aerosol inhaler (Ventolin HFA) budesonide 160 mcg-glycopyr 9 2 inh inhalation BID 04/24/22 12/18/22 History mcg-formot 4.8 mcg/actuation HFA inhaler (Breztri Aerosphere) rosuvastatin 10 mg tablet 10 mg PO HS 12/17/22 12/18/22 History spironolactone 25 mg tablet 25 mg PO DAILY 12/17/22 12/18/22 History torsemide 5 mg tablet 5 mg PO DAILY 12/17/22 12/17/22 History acetaminophen 500 mg tablet (Pain 1,000 mg PO Q6H PRN 12/18/22 12/18/22 History Relief (acetaminophen)) cyanocobalamin (vitamin B-12) 1,000 mcg IM Q30D 12/18/22 12/18/22 History 1,000 mcg/mL injection kit fexofenadine-pseudoephedrine ER 1 tab PO DAILY PRN 12/18/22 12/18/22 History 180 mg-240 mg tablet,ext.release 24 hr (24HR Allergy-Congestion Relief) fluticasone propionate 50 2 spray intranasal DAILY PRN 12/18/22 12/18/22 History mcg/actuation nasal spray,suspension ipratropium 0.5 mg-albuterol 3 mg 3 ml inhalation QID PRN 12/18/22 12/18/22 History (2.5 mg base)/3 mL nebulization soln Allergies Allergy/AdvReac Type Severity Reaction Status Date / Time erythromycin base Allergy Intermediate dry heaves Verified 04/24/22 20:05 Penicillins Allergy Intermediate fainted Verified 04/24/22 20:05 tetanus toxoid, adsorbed Allergy Intermediate Verified 04/24/22 20:05 Exam Narrative: Exam Narrative: Gen: no acute distress HEENT: NCAT EOMI mmm Neck: Supple CV: RRR normal s1 s2 Lungs: Coarse breath sounds diminished at base Abd: Soft,nt, nd Neuro: Alert, oriented, CN grossly intact; nonfocal screening?exam Psych: appropriate affect MSK: age appropriate muscle mass Ext: 2+ bilateral edema Skin; bilateral erythema of lower extremities Const: Vital Signs, click to edit/add: Vital Signs - 24 hr 12/17/22 20:42 12/17/22 21:07 12/17/22 21:07 Temperature 97.8 F Pulse Rate Pulse Rate [Pulse Oximeter] 88 Respiratory Rate 24 Blood Pressure Blood Pressure [Le ft Arm] Blood Pressure [Le ft Upper Arm] 150/122 H Pulse Oximetry 99 98 97 Oxygen Delivery Me thod Nasal Cannula Nasal Cannula Oxygen Flow Rate 2 2 12/17/22 21:00 12/17/22 21:02 12/17/22 21:15 Temperature Pulse Rate 90 92 90 Pulse Rate [Pulse Oximeter] Respiratory Rate Blood Pressure 152/105 H Blood Pressure [Le ft Arm] Blood Pressure [Le ft Upper Arm] Pulse Oximetry 96 95 96 Oxygen Delivery Me thod Oxygen Flow Rate 12/17/22 21:30 12/17/22 21:32 12/17/22 21:45 Temperature Pulse Rate 91 90 86 Pulse Rate [Pulse Oximeter] Respiratory Rate Blood Pressure 168/125 H Blood Pressure [Le ft Arm] Blood Pressure [Le ft Upper Arm] Pulse Oximetry 96 95 97 Oxygen Delivery Me thod Oxygen Flow Rate 12/17/22 22:09 12/17/22 22:15 12/17/22 22:30 Temperature Pulse Rate 95 87 87 Pulse Rate [Pulse Oximeter] Respiratory Rate Blood Pressure Blood Pressure [Le ft Arm] Blood Pressure [Le ft Upper Arm] Pulse Oximetry 86 L 94 94 Oxygen Delivery Me thod Oxygen Flow Rate 12/17/22 22:32 12/17/22 22:45 12/17/22 23:00 Temperature Pulse Rate 82 87 105 H Pulse Rate [Pulse Oximeter] Respiratory Rate Blood Pressure 162/113 H Blood Pressure [Le ft Arm] Blood Pressure [Le ft Upper Arm] Pulse Oximetry 94 95 67 L Oxygen Delivery Me thod Oxygen Flow Rate 12/17/22 23:02 12/17/22 23:15 12/17/22 23:30 Temperature Pulse Rate 101 H 93 90 Pulse Rate [Pulse Oximeter] Respiratory Rate Blood Pressure 166/115 H Blood Pressure [Le ft Arm] Blood Pressure [Le ft Upper Arm] Pulse Oximetry 83 L 95 98 Oxygen Delivery Me thod Oxygen Flow Rate 12/17/22 23:32 12/17/22 23:45 12/18/22 01:10 Temperature Pulse Rate 97 Pulse Rate [Pulse Oximeter] 96 Respiratory Rate 24 Blood Pressure 172/116 H Blood Pressure [Le ft Arm] 152/115 H Blood Pressure [Le ft Upper Arm] Pulse Oximetry 89 91 Oxygen Delivery Me thod Nasal Cannula Oxygen Flow Rate 1 12/18/22 01:10 Temperature Pulse Rate Pulse Rate [Pulse Oximeter] Respiratory Rate 24 Blood Pressure Blood Pressure [Le ft Arm] Blood Pressure [Le ft Upper Arm] Pulse Oximetry 96 Oxygen Delivery Me thod Nasal Cannula Oxygen Flow Rate 1 Hospitalist - H&P: Result Labs Labs: Short CBC 12/17/22 12/18/22 Range/Units 21:20 06:20 WBC 5.73 6.24 (4.50-11.00) K/uL Hgb 14.0 15.6 (12.0-16.0) gm/dL Hct 45.5 50.9 (33.0-51.0) % Plt Count 141 161 (140-440) K/uL BMP 12/17/22 12/18/22 21:20 06:20 Sodium 133 L 137 Potassium 4.2 3.8 Chloride 101 95 L Carbon Dioxide 31 36 H BUN 17 16 Creatinine 0.6 0.7 Glucose 103 96 Calcium 8.4 8.8 Liver Function 12/17/22 Range/Units 21:20 Total Bilirubin 0.6 (0.1-1.5) mg/dL AST 30 (12-35) U/L ALT 22 (4-35) U/L Alkaline Phosphatase 84 (40-150) U/L Albumin 3.5 (3.3-5.0) g/dL Assessment and Plan Assessment and plan (1) Hypertension: Status: Acute (2) COPD (chronic obstructive pulmonary disease): Status: Acute (3) Chronic back pain: Status: Acute (4) Fibromyalgia: Status: Acute (5) Depression: Status: Acute Plan Echocardiogram October 2021: 1. Normal right ventricular chamber size, normal systolic function, estimated right ventricular systolic pressure 61 mmHg (right atrial pressure of 15 mmHg). 2. Enlarged mid ascending aorta diameter (diameter 41 mm at mid level) (upper limits of normal at 37 mm). Trileaflet aortic valve with no functional abnormalities. 3. Normal left ventricular chamber size, no regional wall motion abnormalities, calculated 2-D linear ejection fraction 66% (estimated ejection fraction 70%). 4. Abnormal left ventricular geometry with concentric left ventricular hypertrophy, grade 1/3 diastolic dysfunction, consistent with low to normal filling pressure at rest. 5. Severely enlarged left atrial size. Left atrial volume index 62 ml/m^2. 6. Moderately calcified mitral annulus. Diastolic mean Doppler gradient 2 mmHg (heart rate 80 BPM). Trivial mitral regurgitation. 7. No pericardial effusion. 8. Infrarenal abdominal aorta ectasia (28 mm). Known history of abdominal aortic aneurysm, status post EVAR (05/04/2019). Consider dedicated imaging for further assessment, if clinically indicated. 9. There are no previous echocardiograms available for comparison. Mraty Rivera is a 77 year old female with past medical history of COPD, ALLIE, active tobacco use disorder, fibromyalgia, chronic back pain, COVID 19, Depression presenting for evaluation of SOB. The patient has endorsed increased bilateral lower extremity edema over the last week. She also has had worsening SOB and cough. Her cough is mostly dry. She denies chest pain, palpitations, fever. She is not on home oxygen. 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 She continues to smoke about 8 cigarrettes per day. She presented to the ED where CT PE was negative for PE, mass, consolidation. [place] 0.09[place] [address].WBC WNL. In the ED she was given 40 mg IV lasix and admitted for further evaluation. 1. Acute Diastolic CHF exacerbation/Hx of Pulmonary Hypertension 2. Acute hypoxia secondary to #1 3. Hx of COPD 4. Tobacco use disorder 5. Hx of Fibromyalgia 6. Hx of IBS 7. Hx of Depression 8. 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
--- NOTE | 2022-12-18 12:08 | RESP.RT ---
Patient placed on mask with mist inline @ FiO2 28%, SaO2 96%, for secretion mobilization.
[2022-12-18] MEDS: SODIUM CHLORIDE 0.9 % (FLUSH) 10 ML SYRINGE 5 ML IVF ×2 (13:56→20:59)
--- NOTE | 2022-12-18 14:34 | RESP.RT ---
PEP started to assist in lung recruitment and secretion mobilization. Information, instruction on use of Aerobika. Patient return demonstration with good effort and chest shake. Had patient feel chest shake to help understand use of Aerobika. Patient will self administer with encouragement from Nurse and RT.
[2022-12-18 15:44] LABS: Potassium* 4.4 mmol/L (3.6-5.1)
--- NOTE | 2022-12-18 15:56 | NUTR.NU ---
Addendum entered by Andra Peña RD 12/18/22 16:09: 100% of meal intake recorded. Appetite noted as excellent. Original Note: 77 yo F admitted with dyspnea. RDN screen due to low BMI of 18.4. Pt states appetite has been fine. Chart review indicates weight stable (back 8 mo). Pt states she and her have shared the cooking, but following his stroke, she does most of it. Pt does not use any hi alix protein shakes like Boost or Ensure. States that her had cancer and the association of those drinks with that is too strong. She finds those completely unappealling. RE sodium/CHF/edema. Pt currently on a regular diet. She does not limit salt in her cooking at home but does not use many processed foods. Pt snacks occassionally on salted sunflower seeds in the shell. Pt saleh not currently meet dx of malnutrition. Pt educated briefly on possible benefit of limiting the addition of salt to foods when she cooks or at the table.
--- NOTE | 2022-12-18 16:36 | PC.NURSE ---
PATIENT PLEASANT AND COOPERATIVE, ALERT AND ORIENTED, UP IND IN ROOM WITH STEADY GAIT, SOME SOB NOTED WITH AMBULATION, PATIENT DECLINES SOB AT REST AND STATES SOB IS BETTER THAN WHEN ON ADMISSION, DECLINING PAIN OTHER THAN SOME HAND CRAMPING, UPDATED ON HAND CRAMPING THIS AM WITH NO CHANGES TO ORDERS, THIS AFTERNOON PATIENT STATED THE CRAMPING IN HANDS WAS GETTING WORSE AND FELT IT WAS IN HER ANKLES WELL, UPDATED AND POTASSIUM LAB ORDERED, ALSO SEE NEW MEDICATION ORDERS, OXYGEN AT 1L AT REST TOLERATING WELL, SATS DECLINE WITH ACTIVITY BUT PATIENT ABLE TO RECOVER, NON-PRODUCTIVE COUGH THIS SHIFT, DTR ZAHRAA ([phone]) & SON PORFIRIO ([phone]) UPDATED VIA PHONE AND ALL QUESTIONS ANSWERED.
[2022-12-18] MEDS: GABAPENTIN 100 MG CAPSULE PO (17:14)
[2022-12-18] MEDS: ACETAMINOPHEN 325 MG TABLET 650 MG PO (17:14)
--- NOTE | 2022-12-18 18:17 | PC.NURSE ---
End of Shift([id number]): Patient pleasant and cooperative. Patient vitally stable, lung diminished and with fine crackle, BS WNL, IV intact. Patient on 1 L of oxygen NS with sats 90-92%. Patient independent in room. Patient rates hand and leg pain 8/10, tylenol and gabapentin given. Patient has not coughed with this software writer. Patient right leg +3 pitting edema, left leg +2 pitting edema. Tele=NSR
--- NOTE | 2022-12-18 20:05 | PC.NURSE ---
Luisa (primary RN) updated charge nurse with patient complaints of hand pain. Upon my assessment, patient has nickel sized red, slightly swollen area over right metacarpophalangeal joint. She states it is slightly painful to touch. Also reports index and middle finger on left hand are locked up and she is unable to bend them. They are currently in a slightly hyperextended state. Updated Dr. Silva with above information.
[2022-12-18] MEDS: ROSUVASTATIN CALCIUM 10 MG TABLET PO (20:59)
[2022-12-18] MEDS: HEPARIN 5,000 UNIT/0.5 ML INJ 5000 UNIT SUBCUT (21:00)
[2022-12-19] VITALS (10 sets, daily range): BP systolic 113–138; BP diastolic 76–89; PULSE 83–97; RESP 14–20; TEMP 36.3–37.3; O2SAT 91–97
[2022-12-19] MEDS: CYCLOBENZAPRINE HCL 10 MG TABLET PO (05:22)
[2022-12-19 06:35] LABS: Basophils Absolute Auto 0.02 K/uL (0.00-0.30); Basophils Percent Auto 0.4 % (0.0-3.0); Eosinophils Absolute Auto 0.15 K/uL (0.00-0.50); Hematocrit 48.1 % (33.0-51.0); Hemoglobin* 14.5 gm/dL (12.0-16.0); Immature Granulocytes Abs Auto 0.01 K/uL (0.00-0.30); Immature Granulocytes Pct Auto 0.2 %; Lymphocytes Percent Auto 18.5 % (20-44); Mean Corpuscular HGB Conc 30 gm/dL (32-36); Mean Corpuscular Hemoglobin 27 pg (26-34); Mean Corpuscular Volume 89 fL (80-100); Monocytes Percent Auto 13.2 % (0.0-11.0); Neutrophils Absolute Auto 3.28 K/uL (1.7-7.0); Neutrophils Percent Auto 64.7 % (42.0-72.0); Platelet Count* 172 K/uL (140-440); Red Blood Count 5.42 m/uL (4.00-5.20); White Blood Count* 5.07 K/uL (4.50-11.00)
--- NOTE | 2022-12-19 06:55 | PC.NURSE ---
Pt alert and oriented x3. Pt reports denies pain, chest pain, SOB, and N/V. Pt reports stiffening of fingers and knuckles, with mild swelling and redness on right middle knuckmarcelle, notified by charge nurse MD Marianne?ordered PRN Cyclobenzaprine HCl. Pt is up IND in room. Pt is tolerating a regular diet. Pt slept throughout most of night.???
[2022-12-19 07:05] LABS: Chloride* 96 mmol/L (96-114); Potassium* 4.1 mmol/L (3.6-5.1); Sodium* 135 mmol/L (135-149)
[2022-12-19 07:08] LABS: Carbon Dioxide* 39 mmol/L (20-32); Creatinine* 0.8 mg/dL (0.5-1.5); Est. Creatinine Clearance* 35.09; Estimated Glomerular Filt Rate 76 ml/min
[2022-12-19 07:09] LABS: Blood Urea Nitrogen* 22 mg/dL (7-30); Calcium* 8.5 mg/dL (8.4-10.6); Glucose* 159 mg/dL (60-115); Magnesium* 2.1 mg/dL (1.5-2.6)
[2022-12-19 07:35] LABS: Slide Review Reflex Yes
[2022-12-19 07:36] LABS: Slide Review Acceptable Review (Acceptable)
[2022-12-19] MEDS: OXYCODONE 5 MG TABLET PO (09:30)
[2022-12-19] MEDS: ACETAMINOPHEN 325 MG TABLET 650 MG PO (09:31)
[2022-12-19] MEDS: POTASSIUM CHLORIDE 10 MEQ CAPSULE ER 20 MEQ PO ×2 (09:31→18:38)
[2022-12-19] MEDS: FUROSEMIDE 10 MG/ML inj 40 MG IVP ×2 (09:32→14:37)
[2022-12-19] MEDS: SODIUM CHLORIDE 0.9 % (FLUSH) 10 ML SYRINGE 5 ML IVF ×2 (09:33→22:03)
[2022-12-19] MEDS: HEPARIN 5,000 UNIT/0.5 ML INJ 5000 UNIT SUBCUT ×2 (09:33→22:03)
[2022-12-19] MEDS: IPRAT-ALBUT 0.5-2.5 MG/3 ML NEB 1 NEB IH (12:21)
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
--- NOTE | 2022-12-19 14:27 | PM.IMPN1 ---
Progress Note: A&P Assessment and plan (1) Hypertension: Status: Acute Assessment and Plan: Continue to hold spironolactone. (2) COPD (chronic obstructive pulmonary disease): Status: Acute Assessment and Plan: Continue to work with our respiratory therapy staff. Will assess home oxygen need prior to discharge. Anticipate need for home O2. (3) Chronic back pain: Status: Acute (4) Fibromyalgia: Status: Acute (5) Depression: Status: Acute (6) Congestive heart failure: Status: Acute Assessment and Plan: Stop furosemide 40 mg IV twice daily. Tomorrow morning initiate torsemide 20 mg once daily. Ordered labs for tomorrow morning. Plan Continue with other plans as presently instituted. Patient agreeable to above stated plans and recommendations. Time Spent With Patient Total time spent: 30 minutes Subjective Time Seen by Provider: 09:00 Date Seen: 12/19/22 Interval history: Hospital day 3. Marty Rivera is a 77 year old female with past medical history of COPD, ALLIE, active tobacco use disorder, fibromyalgia, chronic back pain, COVID 19, Depression presenting for evaluation of SOB. The patient has endorsed increased bilateral lower extremity edema over the last week. She also has had worsening SOB and cough. Her cough is mostly dry. She denies chest pain, palpitations, fever. She is not on home oxygen. 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 She continues to smoke about 8 cigarrettes per day. She presented to the ED where CT PE was negative for PE, mass, consolidation. Procal 0.09; [place] [address]15.WBC WNL. In the ED she was given 40 mg IV lasix and admitted for further evaluation. Admitted with the following problem list: 1. Acute Diastolic CHF exacerbation/Hx of Pulmonary Hypertension 2. Acute hypoxia secondary to #1 3. Hx of COPD 4. Tobacco use disorder 5. Hx of Fibromyalgia 6. Hx of IBS 7. Hx of Depression 8. Hx of chronic back pain Plan -admit to inpatient -tele -echo -venous doppler US -IV lasix -daily weight -monitor I&O -electrolyte replacement protocol -wean oxygen as tolerated -continue investigation division captain inhalers -smoking cessation counseling -PT, OT evaluation -stop antibiotics; do not believe she has bilateral lower extremity cellultitis; normal WBC, normal procal Generally feels improved today. Still has productive cough. Tolerating slight increase in activity. Does not feel quite ready to return home. She indicates she know she needs oxygen supplementation at home in order to get by. No fevers, rigors, diaphoresis. T-max yesterday at 3:00 p.m. 99.1? F. still desaturates with activity. Exam Narrative: Exam Narrative: No acute distress. Alert and oriented to self, place, time, situation. Friendly and cooperative. Loose sounding cough. Scattered rhonchi in lung plascencia with end inspiratory rales. No wheezing. Heart tones with regular rhythm, normal S1-S2. Abdomen with active bowel sounds, soft, nontender. Ambulating with walker. Trace bilateral lower extremity edema. Const: Vital Signs, click to edit/add: Vital Signs - 24 hr 12/18/22 15:00 12/18/22 15:00 12/18/22 15:00 Temperature 99.1 F Pulse Rate Pulse Rate [Left A pical] Pulse Rate [Pulse Oximeter] 88 88 Respiratory Rate 22 22 22 Blood Pressure [Le ft Arm] 114/70 Blood Pressure [Ri ght Arm] Pulse Oximetry 91 91 Oxygen Delivery Me thod Nasal Cannula Nasal Cannula Oxygen Flow Rate 1 1 12/18/22 17:03 12/18/22 19:00 12/18/22 22:44 Temperature 97.7 F Pulse Rate 90 Pulse Rate [Left A pical] Pulse Rate [Pulse Oximeter] 90 92 Respiratory Rate 20 16 Blood Pressure [Le ft Arm] 117/82 132/86 Blood Pressure [Ri ght Arm] Pulse Oximetry 92 94 Oxygen Delivery Me thod Nasal Cannula Nasal Cannula Oxygen Flow Rate 1 1 12/18/22 23:00 12/18/22 23:00 12/19/22 00:02 Temperature Pulse Rate 88 Pulse Rate [Left A pical] Pulse Rate [Pulse Oximeter] 92 Respiratory Rate 16 16 Blood Pressure [Le ft Arm] Blood Pressure [Ri ght Arm] Pulse Oximetry 94 Oxygen Delivery Me thod Nasal Cannula Oxygen Flow Rate 1 12/19/22 03:19 12/19/22 08:00 12/19/22 08:00 Temperature 97.9 F 99.1 F Pulse Rate Pulse Rate [Left A pical] 89 Pulse Rate [Pulse Oximeter] 83 89 Respiratory Rate 14 20 20 Blood Pressure [Le ft Arm] 115/76 127/84 Blood Pressure [Ri ght Arm] 127/84 Pulse Oximetry 93 93 93 Oxygen Delivery Me thod Nasal Cannula Nasal Cannula Nasal Cannula Oxygen Flow Rate 1 2 2 12/19/22 07:30 12/19/22 11:30 Temperature 97.8 F Pulse Rate 87 Pulse Rate [Left A pical] Pulse Rate [Pulse Oximeter] 93 Respiratory Rate 20 Blood Pressure [Le ft Arm] Blood Pressure [Ri ght Arm] 113/84 Pulse Oximetry 93 Oxygen Delivery Me thod Nasal Cannula Oxygen Flow Rate 2 Documenting provider has reviewed patient's vital signs: yes Labs Labs: Laboratory Results - last 24 hr 12/18/22 12/19/22 12/19/22 15:25 06:21 06:21 WBC 5.07 RBC 5.42 H Hgb 14.5 Hct 48.1 MCV 89 MCH 27 MCHC [address] of [address] 25.0 H Plt Count 172 Neut % (Auto) 64.7 Lymph % (Auto) 18.5 L Coffey % (Auto) 13.2 H Eos % (Auto) 3.0 Baso % (Auto) 0.4 Neut # (Auto) 3.28 Lymph # (Auto) 0.90 Coffey # (Auto) 0.70 Eos # (Auto) 0.15 Baso # (Auto) 0.02 Diff Slide Review Acceptable Review Sodium 135 Potassium 4.4 4.1 Chloride 96 Carbon Dioxide 39 H BUN 22 Creatinine 0.8 Estimated Creat Clear 35.09 Estimated GFR 76 Glucose 159 H Calcium 8.5 Magnesium 2.1
--- NOTE | 2022-12-19 14:43 | RESP.RT ---
PEP to assist in lung recruitment and secretion mobilization.? Good effort and chest shake.? Had patient feel chest shake to help understand use of Aerobika.? Patient will self administer with encouragement from Nurse and RT. Patient has good cough, swallows secretions.
--- NOTE | 2022-12-19 14:46 | PC.NURSE ---
Pt remains on 2L/NC. Needs encouragement to use Aerobika every hour while she is awake. Pt has an erythemic/painful middle knuckle on her right hand. Prn tylenol and prn oxycodone given for discomfort rating pain 4-5 out of 10. Pt eval by Dr. Park,OT, Eleazar RT and myself. Standing scale weight this afternoon is 98.6 lbs. IV RAC leaking, site discontinued. New IV site to ventral right wrist #22 this afternoon. Pt's grand-daughter Mami brought in her Breztri inhaler and Gagan has labeled it per protocol. Breztri in patient's medication bin. Prn duoneb given to promote expectoration & sputum sample obtained for laboratory study. Report will be given to oncoming shift RN.
--- NOTE | 2022-12-19 14:58 | PC.NURSE ---
Tele indicates NSR on this patient who denies CP. Son updated on his mother's condition via phone, he resides in [place], [place].
[2022-12-19] MEDS: ROSUVASTATIN CALCIUM 10 MG TABLET PO (22:03)
[2022-12-20] VITALS (13 sets, daily range): BP systolic 123–158; BP diastolic 80–104; PULSE 76–96; RESP 16–24; TEMP 36.4–37.2; O2SAT 79–94
[2022-12-20 06:14] LABS: HCO3 VBG 39 mmol/L (21-28); pH VBG 7.351 (7.32-7.43)
[2022-12-20 06:16] LABS: PCO2 VBG 71 mmHG (40-50)
[2022-12-20 06:23] LABS: Hematocrit 46.1 % (33.0-51.0); Mean Corpuscular HGB Conc 30 gm/dL (32-36); Mean Corpuscular Hemoglobin 27 pg (26-34); Mean Corpuscular Volume 90 fL (80-100); Platelet Count* 179 K/uL (140-440); Red Blood Count 5.11 m/uL (4.00-5.20); White Blood Count* 6.39 K/uL (4.50-11.00)
[2022-12-20 06:25] LABS: Slide Review Reflex No
--- NOTE | 2022-12-20 06:48 | PC.NURSE ---
Pt had blood draw around 614, lab called and reported pt critcal lab, PCO2 of 71. Aval called around 0630 and updated, pt alert and oriented x3, no SOB, or change in cognition, no new orders given.
[2022-12-20 06:53] LABS: Chloride* 92 mmol/L (96-114); Potassium* 4.5 mmol/L (3.6-5.1); Sodium* 133 mmol/L (135-149)
[2022-12-20 06:56] LABS: Creatinine* 0.8 mg/dL (0.5-1.5); Est. Creatinine Clearance* 33.48; Estimated Glomerular Filt Rate 76 ml/min
[2022-12-20 06:57] LABS: Blood Urea Nitrogen* 19 mg/dL (7-30); Calcium* 8.2 mg/dL (8.4-10.6); Carbon Dioxide* 39 mmol/L (20-32); Glucose* 147 mg/dL (60-115)
[2022-12-20] MEDS: IPRAT-ALBUT 0.5-2.5 MG/3 ML NEB 1 NEB IH ×2 (07:04→18:55)
--- NOTE | 2022-12-20 07:42 | PC.NURSE ---
Pt alert and oriented x3. Pt reports denies pain, chest pain, SOB, and N/V.?Pt breath sounds clear, pt posterior lung sounds are diminished, pt continues to have intermittent dry cough. Pt had critical lab of PACO2 71 Aval called and updated, no new orders, suggested to given neb if pt felt SOB. Pt denied SOB but requested Neb.?Pt is up IND in room. Pt is tolerating a regular diet. Pt slept throughout most of night.?
[2022-12-20] MEDS: TORSEMIDE 20 MG TABLET PO (09:40)
[2022-12-20] MEDS: POTASSIUM CHLORIDE 10 MEQ CAPSULE ER 20 MEQ PO (09:40)
[2022-12-20] MEDS: SODIUM CHLORIDE 0.9 % (FLUSH) 10 ML SYRINGE 5 ML IVF ×2 (09:41→21:57)
--- NOTE | 2022-12-20 09:50 | CRLHL7_ITS ---
For Patients: As a result of the Cures Act, medical imaging exams and procedure reports are released immediately into your electronic medical record. You may view this report before your referring provider. If you have questions, please contact your health care provider. Indication: PAIN, REDNESS, SWELLING Technique: Three views right hand Comparison: None Findings: Degenerative changes at the 1st carpometacarpal joint. Osteopenia. No fracture. No destructive osseous lesion. Impression: No acute fracture or evidence osteomyelitis. Dictated by Rod Estrada MD @ 12/20/2022 12:10:22 PM (Electronically Signed)
[2022-12-20] MEDS: HEPARIN 5,000 UNIT/0.5 ML INJ 5000 UNIT SUBCUT ×2 (09:55→21:14)
--- NOTE | 2022-12-20 10:18 | RESP.3PART ---
3 Part Home O2 Testing Summary RT 3 Part Home O2 Testing Summary Start: 12/19/22 09:22 Freq: ONCE Status: Active Protocol: Document 12/20/22 09:59 ONDINA (Rec: 12/20/22 10:02 ONDINA [id number]) 3 Part Home O2 Testing Summary The following is a summary of the 3 Part O2 Testing Evaluation Date/Time of Testing Date 12/20/22 Time 09:40 Insurance Policy Number [id number] Step 1 SAT on room air at rest (%) 85 Step 2 SAT on room air while exercising (%) 79 Step 3 SAT on supplemental O2 while exercising 90 (%) Liters of supplemental O2 needed while 4 exercising (L) O2 Delivery O2 delivered via Nasal Cannula Comments Comments Patient SAT at rest on room air is 85% and requires 2L NC to keep SAT at 90%. Patient SAT on room air with activity is 79% and requires 4L NC to keep SAT at 90% with activity.
[2022-12-20 10:22] LABS: Uric Acid* 5.8 mg/dL (2.2-8.4)
[2022-12-20 10:25] LABS: C Reactive Protein* 0.9 mg/dL (0.5-1.0)
--- NOTE | 2022-12-20 12:01 | W.PM.HOT ---
Acute Home Oxygen Therapy Acute Home Oxygen Therapy Diagnosis for Oxygen Therapy (1) COPD (chronic obstructive pulmonary disease): Code(s): J44.9 - Chronic obstructive pulmonary disease, unspecified Provider Note Provider Note: Patient was admitted on 12/18/22 at 09:24 and will be discharging on 12/20/2022. Patient is desaturating with SATs of 79% on room air due to COPD. Alternative therapies have been attempted and have not been successful in maintaining the patient's saturation level above 88%. Supplemental O2 is required. This patient is mobile within the home and requires portability.
--- NOTE | 2022-12-20 16:20 | RESP.RT ---
Patient has Home O2 prescribed already at 2L NC at rest and 4L NC with activity. Son is to bring in her POC for her to be able to transfer back home. We discussed how she needs to follow the prescription. She has been inconsistent with her understanding and explanation to why she isn't wearing her O2.
--- NOTE | 2022-12-20 17:06 | PM.IMPN1 ---
Progress Note: A&P Assessment and plan (1) COPD (chronic obstructive pulmonary disease): Status: Acute (2) Acute on chronic respiratory failure with hypoxia and hypercapnia: Status: Acute (3) NYHA class 3 heart failure with preserved ejection fraction: Status: Acute (4) Exertional angina: Status: Acute (5) Cigarette nicotine dependence: Status: Acute (6) Chronic back pain: Status: Acute (7) Fibromyalgia: Status: Acute (8) Depression: Status: Acute (9) Arthritis of right hand: Status: Acute Plan 1. Reviewed impression with patient 2. Continue with supportive efforts 3. At antianginal efforts 4. Trach troponin I, EKGs 5. Plan outpatient stress test with Lexiscan next week if remains stable otherwise may need to consider transfer and angiogram sooner if warranted. 6. Patient agreeable to above stated plans and recommendations. Time Spent With Patient Total time spent: 50 minutes Subjective Time Seen by Provider: 16:00 Date Seen: 12/20/22 Interval history: Hospital day 4. Marty Rivera is a 77 year old female with past medical history of COPD, ALLIE, active tobacco use disorder, fibromyalgia, chronic back pain, COVID 19, Depression presenting for evaluation of SOB. The patient has endorsed increased bilateral lower extremity edema over the last week. She also has had worsening SOB and cough. Her cough is mostly dry. She denies chest pain, palpitations, fever. She is not on home oxygen. 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 She continues to smoke about 8 cigarrettes per day. She presented to the ED where CT PE was negative for PE, mass, consolidation. Procal 0.09; [place] 79578.WBC WNL. In the ED she was given 40 mg IV lasix and admitted for further evaluation. Admitted with the following problem list: 1. Acute Diastolic CHF exacerbation/Hx of Pulmonary Hypertension 2. Acute hypoxia secondary to #1 3. Hx of COPD 4. Tobacco use disorder 5. Hx of Fibromyalgia 6. Hx of IBS 7. Hx of Depression 8. Hx of chronic back pain Plan -admit to inpatient -tele -echo -venous doppler US -IV lasix -daily weight -monitor I&O -electrolyte replacement protocol -wean oxygen as tolerated -continue seating captain inhalers -smoking cessation counseling -PT, OT evaluation -stop antibiotics; do not believe she has bilateral lower extremity cellultitis; normal WBC, normal procal I have seen the patient multiple times throughout the day today. Early and a she was doing relatively well. This morning she did complain to me of right hand 3rd MCP joint swelling, discomfort, erythema. Denied trauma. X-rays unremarkable fat save did DJD changes. Uric acid level normal. Patient has no fever. Range of motion of hand is full at this time. Still some tenderness over the joint but not excruciating at all. We were preparing to discharge the patient this afternoon when she informed me that she had exertional angina on her way back from the bathroom to her bed. With rest the angina symptom resolved in about 10 minutes. This is new. Breathing is generally improved. She is using the Aerobika device and notes benefit from the same. No purulent sputum but does have loose sounding cough still. Exam Narrative: Exam Narrative: Awake, alert, oriented to self, place, and in part to time and situation. Friendly, cooperative, articulate. Decreased hearing, chronic. Vision grossly intact. Scattered rhonchi without rales or wheezing. Heart tones with regular rhythm, normal S1-S2. No chest wall discomfort on palpation. Abdomen with active bowel sounds, soft, nontender. Trace edema pretibially bilaterally. Independent transfer, station, gait. Desaturates with exertion on 2 L per minute via nasal cannula, but does relatively well on 4 L per minute via nasal cannula with exertion. Const: Vital Signs, click to edit/add: Vital Signs - 24 hr 12/19/22 17:18 12/19/22 19:00 12/19/22 23:00 Temperature 98.7 F Pulse Rate 89 Pulse Rate [Pulse Oximeter] 97 96 Respiratory Rate 16 16 Blood Pressure [Ri [facility] Arm] 123/85 Pulse Oximetry 94 Oxygen Delivery Me thod Nasal Cannula Oxygen Flow Rate 2 12/19/22 23:00 12/19/22 23:00 12/20/22 03:00 Temperature 97.4 F L 97.7 F Pulse Rate Pulse Rate [Pulse Oximeter] 96 94 Respiratory Rate 16 16 16 Blood Pressure [Ri [facility] Arm] 138/89 127/80 Pulse Oximetry 91 91 92 Oxygen Delivery Me thod Nasal Cannula Nasal Cannula Nasal Cannula Oxygen Flow Rate 2 2 2 12/20/22 01:00 12/20/22 07:00 12/20/22 07:00 Temperature Pulse Rate 94 Pulse Rate [Pulse Oximeter] 88 Respiratory Rate 24 24 Blood Pressure [[facility] Arm] Pulse Oximetry 90 Oxygen Delivery Me thod Nasal Cannula Oxygen Flow Rate 1 12/20/22 07:25 12/20/22 09:00 12/20/22 11:00 Temperature 98.8 F 98.7 F Pulse Rate 86 Pulse Rate [Pulse Oximeter] 88 84 Respiratory Rate 24 24 Blood Pressure [Ri ght Arm] 134/91 H 124/80 Pulse Oximetry 90 90 Oxygen Delivery Me thod Nasal Cannula Nasal Cannula Oxygen Flow Rate 1 1 12/20/22 15:00 12/20/22 15:00 12/20/22 15:00 Temperature 99.0 F Pulse Rate Pulse Rate [Pulse Oximeter] 84 84 Respiratory Rate 24 24 24 Blood Pressure [[facility] Arm] 136/85 Pulse Oximetry 94 94 Oxygen Delivery Me thod Nasal Cannula Nasal Cannula Oxygen Flow Rate 1 1 Documenting provider has reviewed patient's vital signs: yes Labs Labs: Laboratory Results - last 24 hr 12/20/22 12/20/22 12/20/22 06:01 06:01 06:01 WBC 6.39 RBC 5.11 Hgb 14.0 Hct 46.1 MCV 90 MCH 27 MCHC 30 L Plt Count 179 VBG pH 7.351 VBG pCO2 71 H* VBG pO2 52.0 H VBG HCO3 39 H Sodium 133 L Potassium 4.5 Chloride 92 L Carbon Dioxide 39 H BUN 19 Creatinine 0.8 Estimated Creat Clear 33.48 Estimated GFR 76 Glucose 147 H Uric Acid 5.8 Calcium 8.2 L C-Reactive Protein 0.9
[2022-12-20] MEDS: METOPROLOL SUCCINATE (XL) 25 MG TAB 12.5 MG PO (17:15)
[2022-12-20 17:22] LABS: Troponin I* 0.02 ng/mL (0.01-0.04)
--- NOTE | 2022-12-20 19:20 | PC.NURSE ---
Pt is alert and oriented this shift. Requiring 1L of O2 at rest and up to 4L of O2 w/ activity to maintain 90%. Vitals stable. Pt c/o to MD this afternoon of chest pressure, EKG completed, orthostatic vitals, Metoprolol 12.5mg admin and new order for Imdur starting tomorrow. Pt stated the pressure has since resolved. States discomfort with certain movements to R hand, declining PRN offers, R hand xrayed and additional labs done this shift. Legs elevated while in bed, pt declined SHAREE hose to be applied. Pt tolerated diet in AM and lunch, ref at dinner. PRN Neb admin this evening. Voiding without issue, states BM last on 12/18. Pt washed up, new linens and gown this shift. visited this afternoon. Pt was going to d/c this late afternoon but since c/o chest pressure pt remaining admit. Call light within pt reach, pt uses appropriately. Pt sitting in bed, appearing comfortable watching TV, sating 90% on 1L of O2, HR 76. Report given to JUSTYN Moran.
[2022-12-20 19:32] LABS: Troponin I* 0.03 ng/mL (0.01-0.04)
[2022-12-20] MEDS: ROSUVASTATIN CALCIUM 10 MG TABLET PO (21:14)
[2022-12-20] MEDS: MAG HYDROX/ALUMINUM HYD/SIMETH 30 ML ORAL.SUSP 15 ML PO (21:57)
[2022-12-20] MEDS: OXYCODONE 5 MG TABLET PO (21:58)
[2022-12-21] VITALS (7 sets, daily range): BP systolic 104–172; BP diastolic 72–116; PULSE 79–91; RESP 18–20; TEMP 36.4–36.9; O2SAT 89–94
[2022-12-21] MEDS: IPRAT-ALBUT 0.5-2.5 MG/3 ML NEB 1 NEB IH (02:19)
[2022-12-21 07:35] LABS: Troponin I* 0.04 ng/mL (0.01-0.04)
--- NOTE | 2022-12-21 08:14 | PC.NURSE ---
Pt alert and oriented x3. Pt reports denies pain, chest pain, SOB, and N/V.?Pt breath sounds clear, pt posterior lung sounds continue to sound?diminished and pt continues to have intermittent dry cough. Overnight pt?s O2 sats dropped to 80-82% oxygen was increased to 4L and PRN neb was given, 02 sats went back up to 90-91%. Pt is now on 2L with O2 sats between 89-90%.?Pt is up IND in room. Pt is tolerating a regular diet. ?Pt slept intermittently throughout night. ?
[2022-12-21] MEDS: ISOSORBIDE MONONITRATE ER 30 MG TAB PO (09:31)
[2022-12-21] MEDS: POTASSIUM CHLORIDE 10 MEQ CAPSULE ER 20 MEQ PO (09:33)
[2022-12-21] MEDS: TORSEMIDE 20 MG TABLET PO (09:33)
[2022-12-21] MEDS: METOPROLOL SUCCINATE (XL) 25 MG TAB 12.5 MG PO (09:33)
[2022-12-21] MEDS: HEPARIN 5,000 UNIT/0.5 ML INJ 5000 UNIT SUBCUT (09:34)
[2022-12-21] MEDS: SODIUM CHLORIDE 0.9 % (FLUSH) 10 ML SYRINGE 5 ML IVF (09:36)
--- NOTE | 2022-12-21 15:31 | PC.NURSE ---
Discharge: A&O pt discharged to home with son. VSS. O2 sats maintained >88% on 2 L most of the day. Discharge education was provided with medication, diagnosis, symptoms to report and follow-up plan. Mo questioned asked. Saline lock removed with tip intact. Pt stated son would bring home O2 tank but upon arrival tank was absent and son stated it was not working. pt and son were instructed to call oxygen service and use emergency tank.
--- NOTE | 2022-12-21 15:43 | P.DS_ITS ---
DS: Providers Provider Time Seen by Provider: 10:00 Date Seen: 12/21/22 Date of admission: 12/18/22 09:24 Primary care physician: Not a Local Provider Admitting Clinician: Ryan Silva MD Consults: 12/18/22 03:11 Consult to Wound Care [CONS] Routine Comment: Consulting Provider: [facility] 12/18/22 09:38 Consult to Occupational Therapy [CONS] Routine Comment: Reason(s) for OT Consult:: Evaluate and Treat Any Restrictions?:: No Restrictions Consult to Physical Therapy [CONS] Routine Comment: Reason(s) for PT Consult:: Evaluate and Treat Any Restrictions?:: No Restrictions 12/18/22 16:56 Consult to [employer] [CONS] Routine Comment: Reason for Consult:: Social Service Consult Attending Physician on discharge: [place] MD Date of Discharge: 12/21/22 DS: Diagnosis Discharge Diagnosis (1) Acute on chronic respiratory failure with hypoxia and hypercapnia: Status: Acute (2) COPD (chronic obstructive pulmonary disease): Status: Acute (3) NYHA class 3 heart failure with preserved ejection fraction: Status: Acute (4) Cigarette nicotine dependence: Status: Acute (5) Exertional angina: Status: Acute (6) Arthritis of right hand: Status: Acute (7) Chronic back pain: Status: Acute (8) Hypertension: Status: Acute (9) Fibromyalgia: Status: Acute (10) Depression: Status: Acute DS: Summary Hospital Course Hospital Course: Marty Rivera is a 77 year old female with past medical history of COPD, ALLIE, active tobacco use disorder, fibromyalgia, chronic back pain, COVID 19, Depression presenting for evaluation of SOB. The patient has endorsed increased bilateral lower extremity edema over the last week. She also has had worsening SOB and cough. Her cough is mostly dry. She denies chest pain, palpitations, fever. She is not on home oxygen. 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 She continues to smoke about 8 cigarrettes per day. She presented to the ED where CT PE was negative for PE, mass, consolidation. [place] 0.09[place] [id number].WBC WNL. In the ED she was given 40 mg IV lasix and admitted for further evaluation. 1. Acute Diastolic CHF exacerbation/Hx of Pulmonary Hypertension 2. Acute hypoxia secondary to #1 3. Hx of COPD 4. Tobacco use disorder 5. Hx of Fibromyalgia 6. Hx of IBS 7. Hx of Depression 8. 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 Patient is diuresed with IV furosemide initially and later we switched to oral furosemide. Her weight on discharge is 44.6 kg. She tolerates this diuresis effort. Her dyspnea improved substantially with this effort. She worked with Physical therapy and Occupational therapy and demonstrated ability to ambulate and carry out her own ADLs. We retested her for home O2 need. From our testing in the hospital she requires oxygen at 2 liters/minute via nasal cannula continuously at rest and 4 liters/minute via nasal cannula with any activity to maintain oxygen saturations greater than 88%. Are venous blood gas testing demonstrates hypercapnia as well. Initiated discussion with patient about her chronic hypoxemic hypercapnic respiratory failure. Presently she is requesting full resuscitation in the event of cardiopulmonary demise. This will clearly need to be addressed once again with the patient in the future. In the afternoon of 12/20/2022 patient experienced exertional angina. She described as chest tightness, and used her clinched fist to show me the tightness. The angina resolved within 10 minutes of resting. Serial tropes were negative. Telemetry was negative. Serial EKGs were negative for ischemia. I did empirically initiate her on low-dose metoprolol succinate 12.5 mg once daily as well as isosorbide mononitrate 30 mg once daily. We initiated a referral for patient to have a Lexiscan cardiac stress test this coming week on 12/25/2022, with follow-up as already established with Dr. Brandee Guillen, or return to clinic or hospital sooner if her condition warrants. She endorsed right hand 3rd MTP discomfort and swelling in hospital. X-ray dem onstrates mild DJD. Uric acid levels normal. Discomfort improved with acetaminophen orally only. Status at Discharge Functional status at discharge: uses cane/walker Overall status at discharge: patient is progressing back to baseline Time Spent with Patient Time attestation: Total time spent providing and/or coordinating discharge services: Time spent: Greater than 30 minutes Exam Narrative: Exam Narrative: Awake, alert, oriented to self, place, and in part to time and situation. Friendly, cooperative, articulate.? Decreased hearing, chronic.? Vision grossly intact. Scattered rhonchi without rales or wheezing. Heart tones with regular rhythm, normal S1-S2. No chest wall discomfort on palpation.? Abdomen with active bowel sounds, soft, nontender. Trace edema pretibially bilaterally. Independent transfer, station, gait. Desaturates with exertion on 2 L per minute via nasal cannula, but does relati vely well on 4 L per minute via nasal cannula with exertion. Const: Vital Signs, click to edit/add: Vital Signs - 24 hr 12/20/22 16:14 12/20/22 17:00 12/20/22 19:00 Temperature 97.6 F Pulse Rate 84 Pulse Rate [Left A pical] Pulse Rate [Pulse Oximeter] 76 Pulse Rate [orthos tatic lying Right Pulse Oximeter] 83 Pulse Rate [orthos tatic sitting Righ t Pulse Oximeter] 96 Pulse Rate [orthos tatic standing Rig ht Pulse Oximeter] 94 Respiratory Rate 24 Blood Pressure Blood Pressure [Le ft Arm] Blood Pressure [Ri ght Arm] 158/104 H Blood Pressure [or thostatic lying Le ft Arm] 123/88 Blood Pressure [or thostatic sitting Left Arm] 140/87 H Blood Pressure [or thostatic standing Left Arm] 136/89 Pulse Oximetry 90 Oxygen Delivery Me thod Nasal Cannula Oxygen Flow Rate 1 12/20/22 22:13 12/20/22 23:00 12/20/22 23:00 Temperature Pulse Rate Pulse Rate [Left A pical] Pulse Rate [Pulse Oximeter] 88 88 Pulse Rate [orthos tatic lying Right Pulse Oximeter] Pulse Rate [orthos tatic sitting Righ t Pulse Oximeter] Pulse Rate [orthos tatic standing Rig ht Pulse Oximeter] Respiratory Rate 20 20 20 Blood Pressure Blood Pressure [Le ft Arm] Blood Pressure [Ri ght Arm] 145/96 H Blood Pressure [or thostatic lying Le ft Arm] Blood Pressure [or thostatic sitting Left Arm] Blood Pressure [or thostatic standing Left Arm] Pulse Oximetry 94 94 Oxygen Delivery Me thod Nasal Cannula Nasal Cannula Oxygen Flow Rate 2 2 12/21/22 01:00 12/21/22 03:00 12/21/22 07:00 Temperature 97.5 F L Pulse Rate 89 Pulse Rate [Left A pical] 91 Pulse Rate [Pulse Oximeter] 91 Pulse Rate [orthos tatic lying Right Pulse Oximeter] Pulse Rate [orthos tatic sitting Righ t Pulse Oximeter] Pulse Rate [orthos tatic standing Rig ht Pulse Oximeter] Respiratory Rate 20 18 Blood Pressure Blood Pressure [Le ft Arm] Blood Pressure [Ri ght Arm] 143/93 H Blood Pressure [or thostatic lying Le ft Arm] Blood Pressure [or thostatic sitting Left Arm] Blood Pressure [or thostatic standing Left Arm] Pulse Oximetry 94 89 Oxygen Delivery Me thod Nasal Cannula Nasal Cannula Oxygen Flow Rate 4 2 12/21/22 07:00 12/21/22 11:00 12/21/22 09:00 Temperature 98.5 F 97.9 F Pulse Rate 87 Pulse Rate [Left A pical] Pulse Rate [Pulse Oximeter] 86 79 Pulse Rate [orthos tatic lying Right Pulse Oximeter] Pulse Rate [orthos tatic sitting Righ t Pulse Oximeter] Pulse Rate [orthos tatic standing Rig ht Pulse Oximeter] Respiratory Rate 18 18 Blood Pressure Blood Pressure [Le ft Arm] 143/97 H Blood Pressure [Ri ght Arm] 124/83 Blood Pressure [or thostatic lying Le ft Arm] Blood Pressure [or thostatic sitting Left Arm] Blood Pressure [or thostatic standing Left Arm] Pulse Oximetry 89 Oxygen Delivery Me thod Nasal Cannula Nasal Cannula Oxygen Flow Rate 3 2 12/21/22 12:10 12/21/22 12:24 Temperature 97.9 F Pulse Rate 87 Pulse Rate [Left A pical] Pulse Rate [Pulse Oximeter] Pulse Rate [orthos tatic lying Right Pulse Oximeter] 82 Pulse Rate [orthos tatic sitting Righ t Pulse Oximeter] 85 Pulse Rate [orthos tatic standing Rig ht Pulse Oximeter] 90 Respiratory Rate 18 Blood Pressure 172/116 H Blood Pressure [Le ft Arm] Blood Pressure [Ri ght Arm] Blood Pressure [or thostatic lying Le ft Arm] 120/83 Blood Pressure [or thostatic sitting Left Arm] 116/82 Blood Pressure [or thostatic standing Left Arm] 104/72 Pulse Oximetry Oxygen Delivery Me thod Oxygen Flow Rate Documenting provider has reviewed patient's vital signs: yes DS: Data Data Completed and Pending Labs on day of discharge: Labs from last 24 hours 12/21/22 12/20/22 12/20/22 06:22 16:47 06:01 Troponin I 0.04 0.02 0.03 Preliminary micro results at discharge 12/18/22 06:28 Blood Culture - Preliminary Blood NO GROWTH AFTER 72 HOURS 12/18/22 06:20 Blood Culture - Preliminary Blood NO GROWTH AFTER 72 HOURS 12/19/22 14:34 Sputum Culture - Preliminary Sputum - Expectorated Sputum Discharge Plan Discharge Disposition: Home, Self-Care Date of Admission: 12/18/22 09:24 Attending Provider on Discharge: [place] Consulting Providers: Melissa Bueno Primary Care Provider: Provider,Not a Local Condition: Improved Anticipated Discharge Date/Time: 12/21/22 13:30 Discharge Medications: New (DME) Home Oxygen Misc See Rx Instructions .Route Qty: 1 0RF Rx Instructions: As directed torsemide 20 mg Tablet 20 mg PO DAILY@0800 30 Days Qty: 30 1RF potassium chloride 20 mEq tablet extended release 20 meq PO DAILY Qty: 30 2RF prednisone 20 mg tablet 20 mg PO DAILY 5 Days Qty: 5 0RF isosorbide mononitrate 30 mg Tablet Extended Release 24 Hr 30 mg PO DAILY 30 Days Qty: 30 0RF metoprolol succinate 25 mg Tablet Extended Release 24 Hr 12.5 mg PO DAILY 30 Days Qty: 15 0RF Continued albuterol sulfate [Ventolin HFA] 90 mcg/actuation HFA aerosol inhaler 2 puff INHALATION Q4H PRN Label Comments: INHALE 2 PUFFS BY MOUTH EVERY 4 HOURS NEEDED FOR WHEEZING AND FOR SHORTNESS OF BREATH Breztri Aerosphere 160-9-4.8 mcg/actuation HFA aerosol inhaler 2 inh inhalation BID rosuvastatin 10 mg tablet 10 mg PO HS fluticasone propionate 50 mcg/actuation spray,suspension 2 spray INTRANASAL DAILY PRN fexofenadine-pseudoephedrine [24HR Allergy-Congestion Relief] 180-240 mg tablet extended release 24 hr 1 tab PO DAILY PRN acetaminophen [Pain Relief (acetaminophen)] 500 mg tablet 1,000 mg PO Q6H PRN cyanocobalamin (vitamin B-12) 1,000 mcg/mL kit 1,000 mcg IM Q30D Rx Instructions: MONTHLY ipratropium-albuterol 0.5 mg-3 mg(2.5 mg base)/3 mL solution for nebulization 3 ml inhalation QID PRN Discontinued spironolactone 25 mg tablet 25 mg PO DAILY torsemide 5 mg tablet 5 mg PO DAILY Discharge Orders: Discharge Order (Routine); Ordered 12/21/22 Ordered By: [place] Park Patient Education: Metoprolol (By mouth), Potassium Chloride (By mouth), Isosorbide Mononitrate (By mouth) (Imdur, Imdur ER, Ismo), Torsemide (By mouth), Heart Failure (GEN), Using Oxygen at Home (DC), Using Oxygen at Home (GEN), COPD (Chronic Obstructive Pulmonary Disease) (GEN), How to Use a Metered-Dose Inhaler and a Spacer (GEN), How to Use a Breath-Activated Inhaler (GEN), Pulmonary Rehabilitation (GEN) Additional Instructions: 1. Use Aerobika device hourly during the day while awake; 2. 100% smoking cessation advised - absolutely no smoking when using oxygen supplementation; 3. Lexiscan cardiac stress test Saturday - do not take metoprolol or isosorbide on day of test until after testing is completed; 4. Keep appointment with Dr. Brandee Guillen as already set on Saturday; 5. Return to clinic or hospital sooner if necessary. Activity Level: No Restrictions and Activity as Tolerated Discharge Diet: 2 gm Sodium Follow Up Appointments: Sylvia Guillen MD [Staff Physician] - 12/26/22 2:00 pm (Patient given instructions on appointment with Dr. Guillen at the [facility]) Provider,Not a Local [Primary Care Provider] - 12/25/22 7:45 am (Lexiscan at [facility] - check in at ER Desk.) Forms: [employer] Info Instructions Discharge Comments: Opiatalkiscan Instructions: 1. No caffeine or nicotine for 24 hours prior to scan 2. No Beta-blockers for 24 hours prior to scan (Metoprolol) 3. Nothing to eat or drink except water for 3 hours prior to scan 4. If any questions call [phone]
== END 2022-12-21 14:35 | disposition home or self-care (01) | DRG 291 ==
LOC: ED 23:54 → MEDSURG 12-18 00:42
PROVIDERS: Hospitalist; Internal Medicine; Admitting Provider Hospitalist; Emergency Provider Family Medicine; Visit Provider Hospitalist
DX: I11.0 Hypertensive heart disease with heart failure (principal); I50.33 Acute on chronic diastolic (congestive) heart failure; J96.21 Acute and chronic respiratory failure with hypoxia; J96.22 Acute and chronic respiratory failure with hypercapnia; I20.8 Other forms of angina pectoris; J44.9 Chronic obstructive pulmonary disease, unspecified; I27.20 Pulmonary hypertension, unspecified; I08.3 Combined rheumatic disorders of mitral, aortic and tricuspid valves; G47.33 Obstructive sleep apnea (adult) (pediatric); Z99.81 Dependence on supplemental oxygen; M54.9 Dorsalgia, unspecified; G89.29 Other chronic pain; M79.7 Fibromyalgia; F32.A Depression, unspecified; M19.041 Primary osteoarthritis, right hand; F17.210 Nicotine dependence, cigarettes, uncomplicated; E78.5 Hyperlipidemia, unspecified; K58.9 Irritable bowel syndrome, unspecified; H35.30 Unspecified macular degeneration; I77.811 Abdominal aortic ectasia
CPT/HCPCS: 36415; 71045; 71260; 73120; 80048; 80053; 82803; 83036; 83605; 83735; 83880; 84132; 84145; 84439; 84443; 84484; 84550; 85025; 85027; 85379; 86140; 87040; 87070; 87186; 87502; 87634; 87635; 93005; 93306; 93970; 94640; 94664; 94761; 97116; 97161; 97165; 97535; 99284; 99285; A9270; G0378; J0696; J1644; J1940; Q9967

== ENCOUNTER 2022-12-25 07:40 | Outpatient (CLI) | payer MEDICARE, BC, SELFPAY ==
--- NOTE | 2022-12-25 08:00 | CRLHL7_ITS ---
For Patients: As a result of the Century Cures Act, medical imaging exams and procedure reports are released immediately into your electronic medical record. You may view this report before your referring provider. If you have questions, please contact your health care provider. [facility] ??? MOBILE IMAGING SERVICES MYOCARDIAL PERFUSION SCAN, 12/25/2022 CLINICAL HISTORY: 71-year-old female. Exercise-induced angina/ Hypertension. Hyperlipidemia. CHF. Current smoker. 97 pounds. TECHNIQUE: (Resting SPECT and stress gated SPECT with wall motion and ejection fraction) Stress: Pharmacologic - Lexiscan (0.4 mg IV) Dose (Stress/Rest): 31.6 mCi/8.21 mCi [id number] (IV) Comparison: None FINDINGS: There is good uptake of activity by the left ventricle. No left ventricular enlargement is noted. Distribution of activity is homogeneous throughout the left ventricle. No significant fixed or reversible defects are identified. The gated images demonstrate a normal left ventricular ejection fraction of approximately 65%. No regional wall motion abnormalities are identified. IMPRESSION: 1) There is no evidence of significant myocardial ischemia or infarction. 2) Normal left ventricular ejection fraction of approximately 65%. CHANDA RUBIO M.D. Diagnostic/Nuclear Medicine Radiologist [email or web address] Transcribed: 12:[address]/Dictated by: Chanda Rubio MD @ 12/25/2022 12:27:00 PM (Electronically Signed)
[2022-12-25 09:23] VITALS: BP 102/68; PULSE 100; RESP 18
[2022-12-25] MEDS: REGADENOSON 0.4 MG/5 ML SYRINGE IVP (09:49)
[2022-12-25] MEDS: SODIUM CHLORIDE 0.9 % (FLUSH) 10 ML SYRINGE IVF (09:49)
--- NOTE | 2022-12-25 10:21 | W.PM.STED ---
Stress Test Note Date Date of test: 12/25/22 Providers Referring provider: [place] Primary care provider: Sylvia Guillen Stress test physician: Jose Muhammad Stress Test Note Stress test ordered: Lexiscan Indication for test: Angina Stress test medicine: Lexiscan Results discussion: Patient is a very nice lady presents for the above test after discussion the risks benefits and side effects he would like to proceed pretest EKG shows a right bundle-branch block, normal sinus rhythm, with flipped P-waves in AVR and V1 suggestive of a pulmonary configuration. Rate is 76 standard Lexiscan nonwalking protocol is use, over 5 minute. , there were no complications, she tolerated this very well, no dysrhythmias, no chest pain no shortness of breath, review of the tracing showed no changes suggestive of ischemia, there is no ST wave changes, dysrhythmias Impression: Negative electrographic portion of Lexiscan Follow up suggested: Await for nuclear images, clinical correlation with these will be needed, patient left this testing facility in excellent condition. No complications
== END 2022-12-25 11:15 | disposition home or self-care (01) ==
LOC: STRESS 07:43
PROVIDERS: Visit Provider Family Medicine
DX: I20.8 Other forms of angina pectoris (principal); I10 Essential (primary) hypertension; E78.5 Hyperlipidemia, unspecified
CPT/HCPCS: 78452; 93016; 93017; A9500; J2785

== ENCOUNTER 2023-01-10 15:50 | Outpatient (CLI) | payer MEDICARE, BC, SELFPAY | END 2023-01-10 15:51 | disposition home or self-care (01) | LOC: NFLDREF 15:50 | PROVIDERS: Visit Provider Internal Medicine | DX: Z00.00 Encounter for general adult medical examination without abnormal findings (principal); I50.30 Unspecified diastolic (congestive) heart failure; I10 Essential (primary) hypertension | CPT/HCPCS: 80048 ==

== ENCOUNTER 2023-03-26 17:00 | Emergency (ER) | payer MEDICARE, BC, SELFPAY ==
[2023-03-26 17:07] VITALS: BP 139/88; PULSE 90; RESP 18; TEMP 37; O2SAT 90; BMI 17.4
--- NOTE | 2023-03-26 17:10 | ED.BACK ---
HPI - Back Pain/Injury General Time Seen by Provider: 17:10 Date Seen: 03/26/23 Chief Complaint: Back Injury/Pain Stated Complaint: Back pain Time Seen by Provider: 03/26/23 17:01 Source: patient and RN notes reviewed Mode of arrival: ambulatory Limitations: no limitations History of Present Illness HPI Narrative: This 78-year-old female is coming in accompanied by her son with increased back pain. She denies any trauma or falls. She states last week she just got up 1 morning had increased pain. Started more in her upper back but she admits she is feeling it all the way down her back and in the lumbar spine now as well. Baseline she feels like her gait is unsteady at times but it is not worse. She denies any loss of motor function in her extremities. No loss of bowel or bladder. No fevers. She does have a history of compression fractures that she is reporting in her thoracic spine before. She states she has been going physical therapy in the physical therapy evaluated her, recommended she get imaging done. She states she is having pain from her neck all the way down to her lower back. When she is pressed as to where it is really hurting it is more her thoracic spine and then seems to radiate towards lumbar spine. Her neck has chronic pain but is at baseline. MD elicited complaint: back pain Related Data Home Medications Medication Instructions Recorded Confirmed albuterol sulfate 90 mcg/actuation 2 puff inhalation Q4H PRN 04/24/22 01/10/23 aerosol inhaler (Ventolin HFA) budesonide 160 mcg-glycopyr 9 2 inh inhalation BID 04/24/22 01/10/23 mcg-formot 4.8 mcg/actuation HFA inhaler (Breztri Aerosphere) rosuvastatin 10 mg tablet 10 mg PO HS 12/17/22 01/10/23 acetaminophen 500 mg tablet (Pain 1,000 mg PO Q6H PRN 12/18/22 01/10/23 Relief (acetaminophen)) cyanocobalamin (vitamin B-12) 1,000 mcg IM Q30D 12/18/22 01/10/23 1,000 mcg/mL injection kit fexofenadine-pseudoephedrine ER 1 tab PO DAILY PRN 12/18/22 01/10/23 180 mg-240 mg tablet,ext.release 24 hr (24HR Allergy-Congestion Relief) fluticasone propionate 50 2 spray intranasal DAILY PRN 12/18/22 01/10/23 mcg/actuation nasal spray,suspension ipratropium 0.5 mg-albuterol 3 mg 3 ml inhalation QID PRN 12/18/22 01/10/23 (2.5 mg base)/3 mL nebulization soln budesonide-formoterol HFA 80 2 inhalation BID 01/10/23 01/10/23 mcg-4.5 mcg/actuation aerosol inhaler duloxetine 60 mg capsule,delayed 60 mg PO DAILY 01/10/23 01/10/23 release prednisone 20 mg tablet 20 mg PO DAILY PRN 01/10/23 spironolactone 25 mg tablet 25 mg PO 01/10/23 01/10/23 Previous Rx's Medication Instructions Recorded Home Oxygen #1 ea 12/20/22 potassium chloride 20 mEq 20 meq PO DAILY #30 tabs 12/20/22 tablet,extended release torsemide 20 mg tablet 20 mg PO DAILY@0800 30 days #30 12/20/22 tabs isosorbide mononitrate 30 mg 30 mg PO DAILY 30 days #30 tabs 12/21/22 tablet,extended release 24 hr tramadol 50 mg tablet 50 mg PO QHS PRN pain #7 tabs 03/26/23 Allergies Allergy/AdvReac Type Severity Reaction Status Date / Time erythromycin base Allergy Intermediate dry heaves Verified 03/26/23 17:09 Penicillins Allergy Intermediate fainted Verified 03/26/23 17:09 tetanus toxoid, adsorbed Allergy Intermediate Verified 03/26/23 17:09 codeine AdvReac Mild Verified 03/26/23 17:09 Review of Systems Status of ROS: Reports: 6 or more systems reviewed and unremarkable except as noted in History and below [facility] Surgical History (Updated 01/10/23 @ 15:34 by Carmela Moreno MD) History of abdominal aortic aneurysm (AAA) repair ?Z98.890 - Other specified postprocedural states (ICD-10) Social History Smoking Status: Current every day smoker What tobacco products do you use: cigarettes Smoking packs per day: 0.5 Smoking cigarettes per day: 10.0 Do you use any of these nicotine containing products: None Second hand tobacco smoke exposure: No How often do you have a drink containing alcohol: 4 or more times a week Alcohol type: wine Alcohol type details: 1 glass of wine a night How many standard drinks containing alcohol do you have on a typical day: 1 or 2 How often do you have six or more drinks on one occasion: Never AUDIT-C Alcohol total score: 4 Non-prescribed substance use: denies use Caffeine: No Little interest or pleasure in doing things: not at all Feeling down, depressed, or hopeless: not at all service: No Exam Const: Vital Signs, click to edit/add: Vital Signs - 24 hr 03/26/23 17:07 Temperature 98.6 F Pulse Rate [Right Pulse Oximeter] 90 Respiratory Rate 18 Blood Pressure [Ri ght Upper Arm] 139/88 Pulse Oximetry 90 Oxygen Delivery Me thod Room Air Marty is very pleasant 78-year-old female sitting wheelchair. She is alert and interactive. Well kept and pleasant. She has chronic oxygen on. Sclera clear, face atraumatic. She has significant kyphosis. There is no midline tenderness over her cervical spine but in the kyphotic are chin her thoracic spine, does complain of some generalized pain. She does not have pain per se midline over the spine in the lower back but does states she just is generally feeling pain. Lungs are clear but distant. No overlying skin changes noted. She is of slender frame. No deficits noted in arms or legs as far as sensation or motor. Documenting provider has reviewed patient's vital signs: yes Course Course Hospital Course: We will start with plain films of her thoracic and lumbar spine. She understands that we may not be able to completely see this on imaging. Sometimes smaller compression fractures or early ones are not necessarily seen on plain films. She has had no trauma and thus do not feel that CT is emergently clinically indicated. She understands that she may need to follow up with her primary care provider and consider MRI for further evaluation if ongoing symptoms. We will see what we find on plain films. I have ordered thoracic and lumbar plain films of her spine. Reevaluation(s) Time of Reevaluation #1: 18:29 Reevaluation #1: Reviewed with patient and her son that they do not see any acute compression fractures although there is difficulty visualizing the upper thoracic spine due to osteopenia. She really feels this is coming from her back. She does not have any increased respiratory symptoms. She does admit she has chronic cough but has COPD units nothing new. It hurts with movement. She is having difficulty sleeping. She takes Tylenol and it does not really help her. She is trying some Aleve which does seem to help. There is no radiculopathic features at this time that would suggest that prednisone would help. I would favor staying away from prednisone in this patient with significant osteopenia. She really would like to try something at least for sleep. We went over risks and benefits of narcotics. I would consider a small amount of tramadol for her, she understands that her primary care provider may not 1 her on this chronically. I think until she can get to clinic, continue with physical therapy, consider MRI if ongoing issues for further workup, can give her small supply of tramadol. Went over risks of narcotics including but not limited to GI disturbances, falls, hallucinations, confusion. Vital Signs Vital signs: Initial Vital Signs Temperature 98.6 F 03/26/23 17:07 Temperature Source Temporal Artery Scan 03/26/23 17:07 Pulse Rate 90 03/26/23 17:07 Pulse Rhythm Regular 03/26/23 17:07 Pulse Strength 3+ Normal 03/26/23 17:07 Respiratory Rate 18 03/26/23 17:07 Blood Pressure 139/88 03/26/23 17:07 Blood Pressure Mean 105 03/26/23 17:07 Pulse Oximetry 90 03/26/23 17:07 Oxygen Delivery Method Room Air 03/26/23 17:07 Vital Signs Temperature 98.6 F 03/26/23 17:07 Pulse Rate 90 03/26/23 17:07 Respiratory Rate 18 03/26/23 17:07 Blood Pressure 139/88 03/26/23 17:07 Pulse Oximetry 90 03/26/23 17:07 Oxygen Delivery Method Room Air 03/26/23 17:07 Temperature 98.6 F 03/26/23 17:07 Pulse Rate 90 03/26/23 17:07 Respiratory Rate 18 03/26/23 17:07 Blood Pressure 139/88 03/26/23 17:07 Pulse Oximetry 90 03/26/23 17:07 Oxygen Delivery Method Room Air 03/26/23 17:07 MDM - Back Pain/Injury Imaging Data XR lumbar spine: Attestation: I have reviewed the pertinent imaging results. Radiologist's impression: Patient: MARTY RAY Facility:?[facility] Patient ID:?[id number] Site Patient ID:?[id number]. Site :?[id number] Study:?XRay Spine Lumbar -03/26/2023 5:44:51 PM Ordering Physician:Rigoberto Adame Final Report: INDICATION: Pain. TECHNIQUE: Lumbar spine 3 views. COMPARISON: None. FINDINGS: Bones: Alignment is normal. Age-indeterminate mild compression fracture deformity of the L1 vertebral body. Joints: Disc space narrowing most prominent L4-5. Lower lumbar facet arthropathy.. Soft tissues: Aortal bi-iliac stent graft with multiple additional vascular stents. Moderate colonic stool load. Dictated by Herberth Baez MD @ 03/26/2023 6:20:55 PM (Electronic Signature) XR thoracic spine: Attestation: I have reviewed the pertinent imaging results. Radiologist's impression: Patient: MARTY RAY Facility:?[facility] Patient ID:?[id number] Site Patient ID:?[id number]. Site :?[id number] Study:?XRay Spine Thoracic -03/26/2023 5:43:54 PM Ordering Physician:?Barbara Adame Final Report: INDICATION: Pain. TECHNIQUE: Thoracic spine 2 views. COMPARISON: None. FINDINGS: Bones: Exaggerated thoracic kyphosis. Evaluation of the upper thoracic vertebral bodies is limited due to diffuse osteopenia and overlapping soft tissues. Otherwise the visualized vertebral body heights are maintained. Joints: Disc spaces and facets are unremarkable. Soft tissues: Abdominal aortic graft with multiple vascular stents. Dictated by Herberth Baez MD @ 03/26/2023 6:18:16 PM (Electronic Signature) Critical Care Time Critical Care Time Critical Care Time: No Discharge Plan Discharge Clinical Impression: Lumbar back pain, Thoracic back pain Patient Disposition: Home, Self-Care Condition: Stable Instructions: Back Pain (ED) Additional Instructions: Need to schedule follow-up with your primary care provider in clinic as soon as possible. If you are having increasing her ongoing back issues, discuss with them possibility of needed further evaluation with MRI. I highly encourage continuing efforts with physical therapy. Take Tylenol or pain medicines that you are using at home baseline for pain. Would recommend Tylenol 1000 mg 3 times a day baseline. I have written for a small supply of tramadol to be used at bedtime only. Be careful as this can make gait more unsteady and increase risk of falls. Activity Level: Activity as Tolerated Prescriptions: New tramadol 50 mg tablet 50 mg PO QHS PRN (Reason: pain) Qty: 7 0RF No Action duloxetine 60 mg capsule,delayed release(DR/EC) 60 mg PO DAILY budesonide-formoterol 80-4.5 mcg/actuation HFA aerosol inhaler 2 inhalation BID prednisone 20 mg tablet 20 mg PO DAILY PRN spironolactone 25 mg tablet 25 mg PO albuterol sulfate [Ventolin HFA] 90 mcg/actuation HFA aerosol inhaler 2 puff INHALATION Q4H PRN Patient Comments: INHALE 2 PUFFS BY MOUTH EVERY 4 HOURS NEEDED FOR WHEEZING AND FOR SHORTNESS OF BREATH Breztri Aerosphere 160-9-4.8 mcg/actuation HFA aerosol inhaler 2 inh inhalation BID rosuvastatin 10 mg tablet 10 mg PO HS fluticasone propionate 50 mcg/actuation spray,suspension 2 spray INTRANASAL DAILY PRN fexofenadine-pseudoephedrine [24HR Allergy-Congestion Relief] 180-240 mg tablet extended release 24 hr 1 tab PO DAILY PRN acetaminophen [Pain Relief (acetaminophen)] 500 mg tablet 1,000 mg PO Q6H PRN cyanocobalamin (vitamin B-12) 1,000 mcg/mL kit 1,000 mcg IM Q30D Rx Instructions: MONTHLY ipratropium-albuterol 0.5 mg-3 mg(2.5 mg base)/3 mL solution for nebulization 3 ml inhalation QID PRN (DME) Home Oxygen Misc See Rx Instructions .Route Qty: 1 0RF Rx Instructions: As directed torsemide 20 mg Tablet 20 mg PO DAILY@0800 30 Days Qty: 30 1RF potassium chloride 20 mEq tablet extended release 20 meq PO DAILY Qty: 30 2RF isosorbide mononitrate 30 mg Tablet Extended Release 24 Hr 30 mg PO DAILY 30 Days Qty: 30 0RF Follow Up/Referrals: Carmela Moreno MD [Primary Care Provider] - Stand Alone Forms: [facility] Info Instructions
--- NOTE | 2023-03-26 17:18 | CRLHL7_ITS ---
For Patients: As a result of the Cures Act, medical imaging exams and procedure reports are released immediately into your electronic medical record. You may view this report before your referring provider. If you have questions, please contact your health care provider. INDICATION: Pain. TECHNIQUE: Lumbar spine 3 views. COMPARISON: None. FINDINGS: Bones: Alignment is normal. Age-indeterminate mild compression fracture deformity of the L1 vertebral body. Joints: Disc space narrowing most prominent L4-5. Lower lumbar facet arthropathy.. Soft tissues: Aortal bi-iliac stent graft with multiple additional vascular stents. Moderate colonic stool load. Dictated by Herberth Baez MD @ 03/26/2023 6:20:55 PM (Electronically Signed)
--- NOTE | 2023-03-26 17:18 | CRLHL7_ITS ---
For Patients: As a result of the Century Cures Act, medical imaging exams and procedure reports are released immediately into your electronic medical record. You may view this report before your referring provider. If you have questions, please contact your health care provider. INDICATION: Pain. TECHNIQUE: Thoracic spine 2 views. COMPARISON: None. FINDINGS: Bones: Exaggerated thoracic kyphosis. Evaluation of the upper thoracic vertebral bodies is limited due to diffuse osteopenia and overlapping soft tissues. Otherwise the visualized vertebral body heights are maintained. Joints: Disc spaces and facets are unremarkable. Soft tissues: Abdominal aortic graft with multiple vascular stents. Dictated by Herberth Baez MD @ 03/26/2023 6:18:16 PM (Electronically Signed)
== END 2023-03-26 18:40 | disposition home or self-care (01) ==
PROVIDERS: Emergency Provider Family Medicine; PCP Internal Medicine
DX: M54.50 Low back pain, unspecified (principal); M54.6 Pain in thoracic spine
CPT/HCPCS: 72070; 72100; 99283; 99284

== ENCOUNTER 2023-06-17 10:59 | Outpatient (CLI) | payer MEDICARE, BC, SELFPAY | END 2023-06-17 11:00 | disposition home or self-care (01) | LOC: NFLDREF 22:04 | PROVIDERS: PCP Internal Medicine; Referring Provider Internal Medicine; Visit Provider Family Medicine | DX: E53.8 Deficiency of other specified B group vitamins (principal); I10 Essential (primary) hypertension; I50.30 Unspecified diastolic (congestive) heart failure; M85.80 Other specified disorders of bone density and structure, unspecified site; R53.83 Other fatigue; D64.9 Anemia, unspecified | CPT/HCPCS: 80053; 80061; 82306; 82607; 84439; 84443 ==

== ENCOUNTER 2023-07-31 12:47 | Outpatient (CLI) | payer MEDICARE, BC, SELFPAY | END 2023-07-31 12:48 | disposition home or self-care (01) | LOC: WOUND 12:48 | PROVIDERS: PCP Internal Medicine; Visit Provider Surgery | DX: S41.001A Unspecified open wound of right shoulder, initial encounter (principal); S81.801A Unspecified open wound, right lower leg, initial encounter; W18.09XA Striking against other object with subsequent fall, initial encounter; R64 Cachexia; Z68.1 Body mass index [BMI] 19.9 or less, adult; F17.219 Nicotine dependence, cigarettes, with unspecified nicotine-induced disorders; Z99.81 Dependence on supplemental oxygen | CPT/HCPCS: 11042; 99213 ==

== ENCOUNTER 2023-08-02 13:36 | Emergency (ER) | payer MEDICARE, BC, SELFPAY ==
[2023-08-02 14:24] VITALS: BP 132/74; PULSE 64; RESP 16; TEMP 36.5; O2SAT 99; BMI 17.0
--- NOTE | 2023-08-02 14:29 | CRLHL7_ITS ---
For Patients: As a result of the Cures Act, medical imaging exams and procedure reports are released immediately into your electronic medical record. You may view this report before your referring provider. If you have questions, please contact your health care provider. Indication: Pain, fall Technique: Three views Comparison: None Findings/Impression: Bones: Alignment is normal. No fractures or bone lesions. Joint spaces: Unremarkable. Soft tissues: Prominent lateral soft tissue swelling. Atherosclerosis. Dictated by Kleber Rainey MD @ 08/02/2023 3:39:11 PM (Electronically Signed)
--- NOTE | 2023-08-02 16:03 | ED_ITS ---
HPI - Fall General Time Seen by Provider: 16:03 Date Seen: 08/02/23 Chief Complaint: Fall/Minor Trauma Stated Complaint: fell, hit head, back pain, left ankle swollen Time Seen by Provider: 08/02/23 16:03 Source: patient and RN notes reviewed Mode of arrival: wheelchair Limitations: no limitations History of Present Illness HPI Narrative: Marty is a very pleasant 78-year-old female with a history of pulmonary hypertension COPD on oxygen class 3 heart failure who comes to the emergency room for evaluation of a fall. Patient notes that last night she got up from h er chair and states she went to walk but her shoes got stuck. She notes that she fell forward striking her right forehead against the couch. She notes that she also sustained a fairly significant skin tear of the right knee. Her son put a Band-Aid on it last night. She did not want to come into the emergency room but did so today. She is complaining of headache, neck stiffness, back pain since the fall as well as right knee pain. She notes that she has been having a harder time breathing of late but attributes that to stressors associated with loss of her . She is COPD dependent. She has not had fever or unusual cough. She is showing the pain in her back to be mid back with radiation to the left ribs. She also has some discomfort over the sacrum but describes that more is uncomfortable rather than pain. This does not radiate into the legs. She denies abdominal pain. Patient frustrated at the number of hours she had to wait today. Indeed, the emergency room has had more patient's than rooms for most of the day. Initial complaints to nursing staff for predominantly right ankle and x-rays were done by nursing staff. I did apologize to her for her weight. She is requesting more evaluation than just her ankle after I do clarify this. Her son is worried as he states he felt that this is similar to his father starting to co ?downhill?. He is worried about electrolyte imbalances. Marty had noticed a recent 6 lb weight gain and thus she has been treating with diuretics and this has been improving she states she is currently seeing wound care center for of right leg injuries. She is also frustrated as she states she needs an iron infusion and has not been able to get that. I did explain we do not do iron infusions in the emergency room but certainly can send a note to her primary. Related Data Home Medications Medication Instructions Recorded Confirmed albuterol sulfate 90 mcg/actuation 2 puff inhalation Q4H PRN 04/24/22 07/17/23 aerosol inhaler (Ventolin HFA) budesonide 160 mcg-glycopyr 9 2 inh inhalation BID 04/24/22 07/17/23 mcg-formot 4.8 mcg/actuation HFA inhaler (Breztri Aerosphere) cyanocobalamin (vitamin B-12) 1,000 mcg IM Q30D 12/18/22 07/17/23 1,000 mcg/mL injection kit fexofenadine-pseudoephedrine ER 1 tab PO DAILY PRN 12/18/22 07/17/23 180 mg-240 mg tablet,ext.release 24 hr (24HR Allergy-Congestion Relief) fluticasone propionate 50 2 spray intranasal DAILY PRN 12/18/22 07/17/23 mcg/actuation nasal spray,suspension ipratropium 0.5 mg-albuterol 3 mg 3 ml inhalation QID PRN 12/18/22 07/17/23 (2.5 mg base)/3 mL nebulization soln spironolactone 25 mg tablet 25 mg PO 01/10/23 07/17/23 empagliflozin 10 mg tablet 10 mg PO QAM 06/20/23 07/17/23 (Jardiance) Previous Rx's Medication Instructions Recorded Home Oxygen #1 ea 12/20/22 isosorbide mononitrate 30 mg 30 mg PO DAILY 30 days #30 tabs 12/21/22 tablet,extended release 24 hr Cymbalta 20 mg capsule,delayed 20 mg PO QDAY #90 caps 06/20/23 release (duloxetine) cholecalciferol (vitamin D3) 25 25 mcg PO QDAY #90 tabs 06/20/23 mcg (1,000 unit) tablet torsemide 20 mg tablet 20 mg PO DAILY@0800 30 days #30 07/17/23 tabs Allergies Allergy/AdvReac Type Severity Reaction Status Date / Time erythromycin base Allergy Intermediate dry heaves Verified 07/17/23 18:50 Penicillins Allergy Intermediate Shortness Verified 07/17/23 18:50 of Breath & Fainting tetanus toxoid, adsorbed Allergy Intermediate Dizziness Verified 07/17/23 18:50 & Fainting codeine AdvReac Mild Rash Verified 07/17/23 18:50 alendronate sodium AdvReac Unknown Gastrointestinal Verified 07/17/23 18:50 [From Fosamax] Upset Review of Systems Status of ROS: Reports: 10 or more systems reviewed and unremarkable except as noted in History and below Const: Denies: fever or chills ENMT: Reports: neck pain (Described as stiffness); Denies: throat pain, difficulty swallowing or hoarseness Cardio: Reports: shortness of breath with exertion; Denies: swelling of feet/ankles or lightheadedness Resp: Reports: shortness of breath and cough GI: Denies: abdominal pain, nausea, vomiting or difficulty swallowing : Denies: painful urination Musculo: Reports: neck pain (Described as stiffness) Integ/Breast: Denies: rash Neuro: Reports: headache (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) [facility] Medical History Normal cardiac stress test (~01/2023) ALLIE (obstructive sleep apnea) ?G47.33 - Obstructive sleep apnea (adult) (pediatric) (ICD-10) Iron deficiency anemia (2019) ?D50.9 - Iron deficiency anemia, unspecified (ICD-10) Subarachnoid hemorrhage following injury (10/2018) ?S06.6XAA - Traumatic subarachnoid hemorrhage with loss of consciousness status unknown, initial encounter (ICD-10) Ascending aorta dilation ?I77.810 - Thoracic aortic ectasia (ICD-10) Dyspnea on exertion ?R06.09 - Other forms of dyspnea (ICD-10) B12 deficiency ?E53.8 - Deficiency of other specified B group vitamins (ICD-10) TIA (transient ischemic attack) (~2018) ?G45.9 - Transient cerebral ischemic attack, unspecified (ICD-10) Pulmonary hypertension ?I27.20 - Pulmonary hypertension, unspecified (ICD-10) Hearing loss of both ears ?H91.93 - Unspecified hearing loss, bilateral (ICD-10) IBS (irritable bowel syndrome) ?K58.9 - Irritable bowel syndrome without diarrhea (ICD-10) Macular degeneration ?H35.30 - Unspecified macular degeneration (ICD-10) Weakness generalized ?R53.1 - Weakness (ICD-10) Thyroid nodule ?E04.1 - Nontoxic single thyroid nodule (ICD-10) Osteopenia ?M85.80 - Other specified disorders of bone density and structure, unspecified site (ICD-10) Depression ?F32.A - Depression, unspecified (ICD-10) Diastolic heart failure (10/2022) ?I50.30 - Unspecified diastolic (congestive) heart failure (ICD-10) Essential hypertension ?I10 - Essential (primary) hypertension (ICD-10) Cigarette nicotine dependence ?F17.210 - Nicotine dependence, cigarettes, uncomplicated (ICD-10) NYHA class 3 heart failure with preserved ejection fraction ?I50.30 - Unspecified diastolic (congestive) heart failure (ICD-10) Fibromyalgia ?M79.7 - Fibromyalgia (ICD-10) Chronic back pain ?M54.9 - Dorsalgia, unspecified (ICD-10) ?G89.29 - Other chronic pain (ICD-10) COPD (chronic obstructive pulmonary disease) ?J44.9 - Chronic obstructive pulmonary disease, unspecified (ICD-10) Acute on chronic respiratory failure with hypoxia and hypercapnia (12/20/22) ?J96.21 - Acute and chronic respiratory failure with hypoxia (ICD-10) ?J96.22 - Acute and chronic respiratory failure with hypercapnia (ICD-10) Surgical History History of colonoscopy with polypectomy ?Z98.890 - Other specified postprocedural states (ICD-10) ?Z86.010 - Personal history of colonic polyps (ICD-10) 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 4 adult children. Long time and current smoker, not ready to quit Smoking Status: Current every day smoker What tobacco products do you use: cigarettes Smoking packs per day: 0.5 Smoking cigarettes per day: 10.0 Do you use any of these nicotine containing products: None Second hand tobacco smoke exposure: No How often do you have a drink containing alcohol: 4 or more times a week Alcohol type: wine Alcohol type details: 1 glass of wine a night How many standard drinks containing alcohol do you have on a typical day: 1 or 2 How often do you have six or more drinks on one occasion: Never AUDIT-C Alcohol total score: 4 Non-prescribed substance use: denies use Caffeine: No Little interest or pleasure in doing things: several days Feeling down, depressed, or hopeless: several days service: No Exam Narrative: Exam Narrative: Alert and oriented. Sitting in wheelchair initially in room 3. EOM is full. She has some slight ecchymosis across the right forehead. No crepitus noted. Neck is with limited range of motion as she feels that it is stiff. No midline cervical tenderness. Heart with a regular rate and rhythm with 3/6 systolic murmur. Lungs are with decreased sounds throughout but I do not hear any specific crackles. Abdomen soft nontender. Pelvis appears stable. Lower extremity show right extensive skin tear over the knee. The bandages gently removed. She has a right calf wrapped by the wound care center. Right ankle is very swollen at this time. Palpation down thoracic spine shows tenderness at approximately T9/10 with radiation to the left. There are no signs of ecchymoses here. Some discomfort with palpation over the sacrum as well. Const: Vital Signs, click to edit/add: Vital Signs - 24 hr 08/02/23 14:24 08/02/23 17:03 Temperature 97.7 F Pulse Rate [Right Pulse Oximeter] 64 72 Respiratory Rate 16 20 Blood Pressure [Ri ght Upper Arm] 132/74 131/56 L Pulse Oximetry 99 100 Oxygen Delivery Me thod Nasal Cannula Nasal Cannula Oxygen Flow Rate 4 Documenting provider has reviewed patient's vital signs: yes Course Course ED Course: At this time patient has multiple medical issues. She is here today after a fall. She has been treating herself for 6 lb weight gain. We will need to check CBC, comprehensive, urinalysis, head CT CT, cervical spine CT, chest CT with thoracic recon. Plain film of the lumbar spine and pelvis. Will clean right knee an ad Tegaderm to this area to hold the skin in place. Will also add proBNP Reevaluation(s) Reevaluation #1: At this time reassurance in regarding this CTs which do not show any evidence of acute fracture or intracranial bleed. Further laboratory values are reassuring with negative troponin x2 normal hemoglobin normal kidney function and proBNP of 6 575. Of note carbon dioxide 37 but in looking back at previous values this appears to be quite common in Marty who I does have O2 dependent COPD. Vital Signs Vital signs: Initial Vital Signs Temperature 97.7 F 08/02/23 14:24 Temperature Source Temporal Artery Scan 08/02/23 14:24 Pulse Rate 64 08/02/23 14:24 Pulse Rhythm Regular 08/02/23 14:24 Respiratory Rate 16 08/02/23 14:24 Blood Pressure 132/74 08/02/23 14:24 Blood Pressure Mean 93 08/02/23 14:24 Blood Pressure Position Sitting 08/02/23 14:24 Pulse Oximetry 99 08/02/23 14:24 Oxygen Delivery Method Nasal Cannula 08/02/23 14:24 Vital Signs Temperature 97.7 F 08/02/23 14:24 Pulse Rate 64 08/02/23 14:24 Respiratory Rate 16 08/02/23 14:24 Blood Pressure 132/74 08/02/23 14:24 Pulse Oximetry 99 08/02/23 14:24 Oxygen Delivery Method Nasal Cannula 08/02/23 14:24 Temperature 97.7 F 08/02/23 14:24 Pulse Rate 72 08/02/23 17:03 Respiratory Rate 20 08/02/23 17:03 Blood Pressure 131/56 L 08/02/23 17:03 Pulse Oximetry 100 08/02/23 17:03 Oxygen Delivery Method Nasal Cannula 08/02/23 17:03 Oxygen Flow Rate 4 08/02/23 17:03 MDM - Fall MDM Narrative Medical decision making narrative: 1. Fall-fortunately no evidence of life-threatening injuries today. No prodromal symptoms. Patient notes that she had just gotten up from her chair and unfortunately states that her shoes skidded on to the floor. I have tried to impress upon her the need to move very slowly and deliberately. I would like her to look through her home and make sure there are no extension cords that her lying out and that rug edges are not curled. She needs to really remove all tripping hazards. I would like her to use a walker as support to avoid falls. 2. Head injury-no evidence of loss of consciousness and head CT is reassuring. Cervical spine was negative for any acute fracture. 3. Back pain-no evidence of new fractures. Patient does have multiple compression fractures. No evidence of underlying pneumothorax. 4. Shortness of breath-patient notes that this is been increasing. No evidence of pneumonia. EKG and troponin negative x2. 5. Left ankle sprain-no evidence of fracture. Will wrap with Thee wrap. Again use of a walker at home would likely be beneficial. 6. Right knee skin tear-this was cleansed and covered with Tegaderm. Right leg is all with wounds already being followed by the wound care center. No evidence of surrounding erythema to indicate infection. No underlying bony knee injury. 7. COPD-likely CO2 retention with no acute findings tonight. 8. Disposition-home at this time. Return for worsening symptoms and as needed. Medical Records Attestation: I reviewed the patient's medical records. Lab Data Attestation: I reviewed the patient's lab results. Labs: Lab Results 08/02/23 08/02/23 08/02/23 Range/Units 16:38 16:50 17:24 WBC 7.17 (4.50-11.00) K/uL RBC 4.32 (4.00-5.20) m/uL Hgb 12.1 (12.0-16.0) gm/dL Hct 40.0 (33.0-51.0) % MCV 93 (80-100) fL MCH 28 (26-34) pg MCHC 30 L (32-36) gm/dL RDW Coeff of Lane 16.0 H (11.5-15.5) % Plt Count 274 (140-440) K/uL Neut % (Auto) 73.4 H (42.0-72.0) % Lymph % (Auto) 14.6 L (20-44) % [place] % (Auto) 9.9 (0.0-11.0) % Eos % (Auto) 1.7 (0.0-7.0) % Baso % (Auto) 0.3 (0.0-3.0) % Neut # (Auto) 5.30 (1.7-7.0) K/uL Lymph # (Auto) 1.00 (0.90-2.90) K/uL [place] # (Auto) 0.70 (0.00-0.90) K/UL Eos # (Auto) 0.12 (0.00-0.50) K/uL Baso # (Auto) 0.02 (0.00-0.30) K/uL Abs Immat Gran (auto) 0.01 (0.00-0.30) K/uL Imm/Tot Granulo (auto) 0.1 % Sodium 137 (135-149) mmol/L Potassium 3.8 (3.6-5.1) mmol/L Chloride 97 (96-114) mmol/L Carbon Dioxide 37 H (20-32) mmol/L Anion Gap 3 L (7-15) mEq/L BUN 18 (7-30) mg/dL Creatinine 0.8 (0.5-1.5) mg/dL Estimated Creat Clear 29.88 Estimated GFR 75 ml/min Glucose 100 (60-115) mg/dL Calcium 9.0 (8.4-10.6) mg/dL Total Bilirubin 0.6 (0.1-1.5) mg/dL AST 39 H (12-35) U/L ALT 22 (4-35) U/L Alkaline Phosphatase 96 (40-150) U/L NT-Pro-B Natriuret Pep 575 pg/mL Total Protein 7.0 (6.0-8.3) g/dL Albumin 3.9 (3.3-5.0) g/dL Urine Color (Yellow) Urine Appearance (Clear) Urine pH (5.0-8.5) Ur Specific [place] (1.000-1.030) Urine Protein (Negative) Urine Glucose (UA) (Negative) Urine Ketones (Negative) Urine Blood (Negative) Urine Nitrite (Negative) Urine Bilirubin (Negative) Urine Urobilinogen (0.2-1.0) Ur Leukocyte Esterase (Negative) Urine RBC (0-2) Urine WBC (0-5) Ur Squamous Epith Cells (None-Few) Urine Bacteria (None) Lab Acknowledgement Test Added POC Troponin I 0.01 (0.01-0.04) ng/ml 08/02/23 Range/Units 18:30 WBC (4.50-11.00) K/uL RBC (4.00-5.20) m/uL Hgb (12.0-16.0) gm/dL Hct (33.0-51.0) % MCV (80-100) fL MCH (26-34) pg MCHC (32-36) gm/dL RDW Coeff of Lane (11.5-15.5) % Plt Count (140-440) K/uL Neut % (Auto) (42.0-72.0) % Lymph % (Auto) (20-44) % [place] % (Auto) (0.0-11.0) % Eos % (Auto) (0.0-7.0) % Baso % (Auto) (0.0-3.0) % Neut # (Auto) (1.7-7.0) K/uL Lymph # (Auto) (0.90-2.90) K/uL [place] # (Auto) (0.00-0.90) K/UL Eos # (Auto) (0.00-0.50) K/uL Baso # (Auto) (0.00-0.30) K/uL Abs Immat Gran (auto) (0.00-0.30) K/uL Imm/Tot Granulo (auto) % Sodium (135-149) mmol/L Potassium (3.6-5.1) mmol/L Chloride (96-114) mmol/L Carbon Dioxide (20-32) mmol/L Anion Gap (7-15) mEq/L BUN (7-30) mg/dL Creatinine (0.5-1.5) mg/dL Estimated Creat Clear Estimated GFR ml/min Glucose (60-115) mg/dL Calcium (8.4-10.6) mg/dL Total Bilirubin (0.1-1.5) mg/dL AST (12-35) U/L ALT (4-35) U/L Alkaline Phosphatase (40-150) U/L NT-Pro-B Natriuret Pep pg/mL Total Protein (6.0-8.3) g/dL Albumin (3.3-5.0) g/dL Urine Color Yellow (Yellow) Urine Appearance Clear (Clear) Urine pH 8.0 (5.0-8.5) Ur Specific [place] 1.015 (1.000-1.030) Urine Protein 1+ A (Negative) Urine Glucose (UA) Negative (Negative) Urine Ketones Negative (Negative) Urine Blood Negative (Negative) Urine Nitrite Negative (Negative) Urine Bilirubin Negative (Negative) Urine Urobilinogen 0.2 (0.2-1.0) Ur Leukocyte Esterase Negative (Negative) Urine RBC 0-2 (0-2) Urine WBC 0-2 (0-5) Ur Squamous Epith Cells None (None-Few) Urine Bacteria None (None) Lab Acknowledgement POC Troponin I (0.01-0.04) ng/ml Imaging Data CT scan - head: Attestation: I have reviewed the pertinent imaging results. My impression: No acute intracranial bleed or fractures Radiologist's impression: No acute intracranial hemorrhage. No mass effect or midline shift. No hydrocephalus or extra-axial collections. Patchy white matter hypoattenuation, typical for chronic microvascular ischemic changes. Intracranial vascular calcifications. No acute osseous abnormalities. Mastoid air cells and paranasal sinuses are clear. Normal soft tissues. IMPRESSION: IMPRESSION: 1. No acute intracranial abnormalities. Cervical spine CT: Attestation: I have reviewed the pertinent imaging results. My impression: Multilevel spondylosis. I do not note any acute fractures Radiologist's impression: ertebrae: Trace retrolisthesis C5 relative to C4 and C6, unchanged. There are no fractures or suspicious bony lesions. Discs and facet joints: There are degenerative disc changes most severe at C4-C5 and C5-C6. There are multilevel degenerative changes in the facets. Extraspinal findings: Paraspinous soft tissues are unremarkable. IMPRESSION: 1. No acute fracture or traumatic subluxation of the cervical spine. 2. Multilevel degenerative spondylosis CT scan - chest: Attestation: I have reviewed the pertinent imaging results. My impression: I do not note any acute fractures, pneumothorax or pneumonia. Radiologist's impression: Lungs and pleura: Mild emphysema. Medial right middle lobe and bibasilar atelectasis/scarring. Stable few scattered small subpleural nodules, likely benign given small size and long-term stability. No new nodule. No pleural effusions, pleural thickening, or pneumothorax. Heart and vasculature: Heart size is normal. Stable borderline ectatic ascending thoracic aorta measuring 3.9 cm. Stable enlarged pulmonary artery, suggestive of underlying pulmonary hypertension. Coronary artery calcifications. Lymph nodes/mediastinum: No mediastinal, hilar, or axillary adenopathy. Thyroid gland is unremarkable. Chest wall: No masses. Upper abdomen: Partially visualized aortic stent graft with multiple additional vascular stents. Bones: Degenerative changes. Multiple chronic compression deformities including T4, T5, T7, T9 and T12 with exaggerated thoracic kyphosis. IMPRESSION: 1. No acute intrathoracic abnormality. 2. Chronic findings as above. Left ankle x-ray: Attestation: I have reviewed the pertinent imaging results. My impression: I do not note any acute fractures Radiologist's impression: Bones: Alignment is normal. No fractures or bone lesions. Joint spaces: Unremarkable. Soft tissues: Prominent lateral soft tissue swelling. Atherosclerosis. Right knee x-ray: Attestation: I have reviewed the pertinent imaging results. My impression: No acute fractures Radiologist's impression: No acute fracture or dislocation. No knee joint effusion. Chondrocalcinosis in the medial and lateral compartments. Soft tissues are unremarkable. IMPRESSION: No acute findings. Lumbar spine x-ray/pelvis x-ray: Attestation: I have reviewed the pertinent imaging results. My impression: No acute fracture Radiologist's impression: No acute fracture identified. The hips appear normally aligned with mild joint space narrowing. Degenerative changes of the sacroiliac joints. Aortobiiliac stent graft. Soft tissues are unremarkable. IMPRESSION: No acute findings. here are 5 lumbar type vertebral bodies. Normal vertebral body alignment. No acute fracture identified. Chronic mild compression deformities of L1 and L2. Lower lumbar facet arthropathy. Disc space narrowing at L4-L5. Degenerative changes of sacroiliac joints. Multiple vascular stents. Excreted contrast in the renal collecting systems. Soft tissues are unremarkable. IMPRESSION: 1. No acute findings. 2. Chronic mild compression deformities of L1 and L2. ECG Data Attestation: I personally reviewed and interpreted this ECG as follows: ECG interpretation date: 08/02/23 Interpretation: EKG by my read shows a sinus rhythm at a rate of 70. She does have an incomplete right bundle branch block. I did compare this EKG to EKG from December of 2022 and is largely unchanged. Discharge Plan Discharge Clinical Impression: Skin tear Head injury Qualifiers: Encounter type: initial encounter Qualified Code(s): S09.90XA - Unspecified injury of head, initial encounter Fall Qualifiers: Encounter type: initial encounter Qualified Code(s): W19.XXXA - Unspecified fall, initial encounter Patient Disposition: Home, Self-Care Condition: Improved Additional Instructions: Slow movements. Thee wrap to the ankle. Use a walker at home for additional support. Return to the emergency room for worsening symptoms. Prescriptions: No Action spironolactone 25 mg tablet 25 mg PO cholecalciferol (vitamin D3) 25 mcg (1,000 unit) tablet 25 mcg PO QDAY Qty: 90 4RF duloxetine [Cymbalta] 20 mg capsule,delayed release(DR/EC) 20 mg PO QDAY Qty: 90 4RF Jardiance 10 mg tablet 10 mg PO QAM torsemide 20 mg tablet 20 mg PO DAILY@0800 30 Days Qty: 30 1RF albuterol sulfate [Ventolin HFA] 90 mcg/actuation HFA aerosol inhaler 2 puff INHALATION Q4H PRN Patient Comments: INHALE 2 PUFFS BY MOUTH EVERY 4 HOURS NEEDED FOR WHEEZING AND FOR SHORTNESS OF BREATH [place] Aerosphere 160-9-4.8 mcg/actuation HFA aerosol inhaler 2 inh inhalation BID fluticasone propionate 50 mcg/actuation spray,suspension 2 spray INTRANASAL DAILY PRN fexofenadine-pseudoephedrine [24HR Allergy-Congestion Relief] 180-240 mg tablet extended release 24 hr 1 tab PO DAILY PRN cyanocobalamin (vitamin B-12) 1,000 mcg/mL kit 1,000 mcg IM Q30D Rx Instructions: MONTHLY ipratropium-albuterol 0.5 mg-3 mg(2.5 mg base)/3 mL solution for nebulization 3 ml inhalation QID PRN (DME) Home Oxygen Misc See Rx Instructions .Route Qty: 1 0RF Rx Instructions: As directed isosorbide mononitrate 30 mg Tablet Extended Release 24 Hr 30 mg PO DAILY 30 Days Qty: 30 0RF Follow Up/Referrals: Carmela Moreno MD [Primary Care Provider] - Stand Alone Forms: [facility] Info Instructions
--- NOTE | 2023-08-02 16:32 | CRLHL7_ITS ---
For Patients: As a result of the Cures Act, medical imaging exams and procedure reports are released immediately into your electronic medical record. You may view this report before your referring provider. If you have questions, please contact your health care provider. INDICATION: Fall. TECHNIQUE: AP pelvis. COMPARISON: None. FINDINGS: No acute fracture identified. The hips appear normally aligned with mild joint space narrowing. Degenerative changes of the sacroiliac joints. Aortobiiliac stent graft. Soft tissues are unremarkable. IMPRESSION: No acute findings. Dictated by Mendy Mijares MD @ 08/02/2023 6:56:15 PM (Electronically Signed)
--- NOTE | 2023-08-02 16:32 | CRLHL7_ITS ---
For Patients: As a result of the Century Cures Act, medical imaging exams and procedure reports are released immediately into your electronic medical record. You may view this report before your referring provider. If you have questions, please contact your health care provider. INDICATION: Fall. TECHNIQUE: CT of the head without contrast. Coronal and sagittal reformats are included. COMPARISON: Head CT from 04/28/2020. FINDINGS: No acute intracranial hemorrhage. No mass effect or midline shift. No hydrocephalus or extra-axial collections. Patchy white matter hypoattenuation, typical for chronic microvascular ischemic changes. Intracranial vascular calcifications. No acute osseous abnormalities. Mastoid air cells and paranasal sinuses are clear. Normal soft tissues. IMPRESSION: IMPRESSION: 1. No acute intracranial abnormalities. Please note that all CT scans at this facility use dose modulation, iterative reconstruction, and/or weight-based dosing when appropriate to reduce radiation dose to as low as reasonably achievable. Dictated by Johny Holder MD @ 08/02/2023 6:52:35 PM (Electronically Signed)
--- NOTE | 2023-08-02 16:32 | CRLHL7_ITS ---
For Patients: As a result of the Century Cures Act, medical imaging exams and procedure reports are released immediately into your electronic medical record. You may view this report before your referring provider. If you have questions, please contact your health care provider. INDICATION: Trauma, fall. Neck pain. TECHNIQUE: CT cervical spine without contrast. COMPARISON: 04/28/2020. FINDINGS: Vertebrae: Trace retrolisthesis C5 relative to C4 and C6, unchanged. There are no fractures or suspicious bony lesions. Discs and facet joints: There are degenerative disc changes most severe at C4-C5 and C5-C6. There are multilevel degenerative changes in the facets. Extraspinal findings: Paraspinous soft tissues are unremarkable. IMPRESSION: 1. No acute fracture or traumatic subluxation of the cervical spine. 2. Multilevel degenerative spondylosis. Please note that all CT scans at this facility use dose modulation, iterative reconstruction, and/or weight-based dosing when appropriate to reduce radiation dose to as low as reasonably achievable. Dictated by Herberth Baez MD @ 08/02/2023 7:06:03 PM (Electronically Signed)
--- NOTE | 2023-08-02 16:32 | CRLHL7_ITS ---
For Patients: As a result of the Century Cures Act, medical imaging exams and procedure reports are released immediately into your electronic medical record. You may view this report before your referring provider. If you have questions, please contact your health care provider. INDICATION: Fall. TECHNIQUE: Lumbar spine 3 views. COMPARISON: Lumbar spine radiographs 03/26/2023. FINDINGS: There are 5 lumbar type vertebral bodies. Normal vertebral body alignment. No acute fracture identified. Chronic mild compression deformities of L1 and L2. Lower lumbar facet arthropathy. Disc space narrowing at L4-L5. Degenerative changes of sacroiliac joints. Multiple vascular stents. Excreted contrast in the renal collecting systems. Soft tissues are unremarkable. IMPRESSION: 1. No acute findings. 2. Chronic mild compression deformities of L1 and L2. Dictated by Mendy Mijares MD @ 08/02/2023 6:59:34 PM (Electronically Signed)
--- NOTE | 2023-08-02 16:32 | CRLHL7_ITS ---
For Patients: As a result of the Century Cures Act, medical imaging exams and procedure reports are released immediately into your electronic medical record. You may view this report before your referring provider. If you have questions, please contact your health care provider. INDICATION: Chest pain. TECHNIQUE: CT chest acquired with 44 cc Isovue 370 IV contrast. COMPARISON: 09/28/2019. FINDINGS: Lungs and pleura: Mild emphysema. Medial right middle lobe and bibasilar atelectasis/scarring. Stable few scattered small subpleural nodules, likely benign given small size and long-term stability. No new nodule. No pleural effusions, pleural thickening, or pneumothorax. Heart and vasculature: Heart size is normal. Stable borderline ectatic ascending thoracic aorta measuring 3.9 cm. Stable enlarged pulmonary artery, suggestive of underlying pulmonary hypertension. Coronary artery calcifications. Lymph nodes/mediastinum: No mediastinal, hilar, or axillary adenopathy. Thyroid gland is unremarkable. Chest wall: No masses. Upper abdomen: Partially visualized aortic stent graft with multiple additional vascular stents. Bones: Degenerative changes. Multiple chronic compression deformities including T4, T5, T7, T9 and T12 with exaggerated thoracic kyphosis. IMPRESSION: 1. No acute intrathoracic abnormality. 2. Chronic findings as above. Please note that all CT scans at this facility use dose modulation, iterative reconstruction, and/or weight-based dosing when appropriate to reduce radiation dose to as low as reasonably achievable. Dictated by Herberth Baez MD @ 08/02/2023 7:16:30 PM (Electronically Signed)
--- NOTE | 2023-08-02 16:49 | CRLHL7_ITS ---
For Patients: As a result of the Cures Act, medical imaging exams and procedure reports are released immediately into your electronic medical record. You may view this report before your referring provider. If you have questions, please contact your health care provider. INDICATION: Fall. TECHNIQUE: Right knee 2 views. COMPARISON: None. FINDINGS: No acute fracture or dislocation. No knee joint effusion. Chondrocalcinosis in the medial and lateral compartments. Soft tissues are unremarkable. IMPRESSION: No acute findings. Dictated by Mendy Mijares MD @ 08/02/2023 7:01:28 PM (Electronically Signed)
[2023-08-02 16:59] LABS: Troponin, Point-of-Care* 0.01 ng/ml (0.01-0.04)
[2023-08-02 17:01] LABS: Basophils Absolute Auto 0.02 K/uL (0.00-0.30); Basophils Percent Auto 0.3 % (0.0-3.0); Eosinophils Absolute Auto 0.12 K/uL (0.00-0.50); Eosinophils Percent Auto 1.7 % (0.0-7.0); Hemoglobin* 12.1 gm/dL (12.0-16.0); Immature Granulocytes Abs Auto 0.01 K/uL (0.00-0.30); Immature Granulocytes Pct Auto 0.1 %; Lymphocytes Percent Auto 14.6 % (20-44); Mean Corpuscular HGB Conc 30 gm/dL (32-36); Mean Corpuscular Hemoglobin 28 pg (26-34); Mean Corpuscular Volume 93 fL (80-100); Monocytes Percent Auto 9.9 % (0.0-11.0); Neutrophils Percent Auto 73.4 % (42.0-72.0); Platelet Count* 274 K/uL (140-440); Red Blood Count 4.32 m/uL (4.00-5.20); White Blood Count* 7.17 K/uL (4.50-11.00)
[2023-08-02 17:03] VITALS: BP 131/56; PULSE 72; RESP 20; O2SAT 100
[2023-08-02 17:05] LABS: Slide Review Reflex No
[2023-08-02 17:14] LABS: Albumin* 3.9 g/dL (3.3-5.0); Chloride* 97 mmol/L (96-114)
--- NOTE | 2023-08-02 17:14 | ED.NURSE ---
Tegaderm applied to wound on right knee, wound cleaned.
[2023-08-02 17:15] LABS: Potassium* 3.8 mmol/L (3.6-5.1); Sodium* 137 mmol/L (135-149)
[2023-08-02 17:17] LABS: Anion Gap 3 mEq/L (7-15); Aspartate Amino Transferase* 39 U/L (12-35); Bilirubin Total* 0.6 mg/dL (0.1-1.5); Carbon Dioxide* 37 mmol/L (20-32); Creatinine* 0.8 mg/dL (0.5-1.5); Est. Creatinine Clearance* 29.88; Estimated Glomerular Filt Rate 75 ml/min
[2023-08-02 17:18] LABS: Alanine Aminotransferase* 22 U/L (4-35); Alkaline Phosphatase* 96 U/L (40-150); Blood Urea Nitrogen* 18 mg/dL (7-30); Glucose* 100 mg/dL (60-115)
[2023-08-02] MEDS: 0.9 % SODIUM CHLORIDE 250 ml 250 ML IV (17:30)
[2023-08-02 17:56] LABS: NT Pro B Type NatriureticPept* 575 pg/mL
[2023-08-02 18:52] LABS: Appearance Urine Clear (Clear); Bilirubin Urine Negative (Negative); Blood Urine Negative (Negative); Color Urine Yellow (Yellow); Glucose Urine Negative (Negative); Ketones Urine Negative (Negative); Leukocyte Esterase Urine Negative (Negative); Nitrite Urine Negative (Negative); Protein Urine 1+ (Negative); Specific Gravity Urine 1.015 (1.000-1.030); Urobilinogen Urine 0.2 (0.2-1.0)
[2023-08-02 19:29] LABS: RBC Urine 0-2 (0-2); WBC Urine 0-2 (0-5)
--- NOTE | 2023-08-02 20:50 | ED.NURSE ---
kaleb wrap applied to left ankle. Right knee re-bandaged - Telfa applied, Tegaderm and bacitracin applied.
== END 2023-08-02 20:52 | disposition home or self-care (01) ==
PROVIDERS: Emergency Provider Family Medicine; PCP Internal Medicine
DX: S09.90XA Unspecified injury of head, initial encounter (principal); S93.402A Sprain of unspecified ligament of left ankle, initial encounter; W19.XXXA Unspecified fall, initial encounter
CPT/HCPCS: 36415; 70450; 71260; 72100; 72125; 72170; 73560; 73610; 80053; 81001; 83880; 84484; 85025; 93005; 99284; 99285; J7050; Q9967

== ENCOUNTER 2023-08-07 13:27 | Outpatient (CLI) | payer MEDICARE, BC, SELFPAY | END 2023-08-07 13:28 | disposition home or self-care (01) | LOC: WOUND 13:28 | PROVIDERS: PCP Internal Medicine; Visit Provider Family Medicine | DX: S41.001A Unspecified open wound of right shoulder, initial encounter (principal); S81.801A Unspecified open wound, right lower leg, initial encounter; S81.011A Laceration without foreign body, right knee, initial encounter | CPT/HCPCS: 11042; 11045; 97597 ==

== ENCOUNTER 2023-08-14 14:23 | Outpatient (CLI) | payer MEDICARE, BC, SELFPAY | END 2023-08-14 14:24 | disposition home or self-care (01) | LOC: WOUND 14:23 | PROVIDERS: PCP Internal Medicine; Visit Provider Surgery | DX: S41.001A Unspecified open wound of right shoulder, initial encounter (principal); S81.801A Unspecified open wound, right lower leg, initial encounter; W19.XXXA Unspecified fall, initial encounter | CPT/HCPCS: 99213 ==

== ENCOUNTER 2023-08-21 13:29 | Outpatient (CLI) | payer MEDICARE, BC, SELFPAY | END 2023-08-21 13:30 | disposition home or self-care (01) | PROVIDERS: PCP Internal Medicine; Visit Provider Surgery | DX: S81.801A Unspecified open wound, right lower leg, initial encounter (principal); S81.011A Laceration without foreign body, right knee, initial encounter; R64 Cachexia; Z68.1 Body mass index [BMI] 19.9 or less, adult; F17.219 Nicotine dependence, cigarettes, with unspecified nicotine-induced disorders; Z99.81 Dependence on supplemental oxygen; E53.8 Deficiency of other specified B group vitamins; D50.9 Iron deficiency anemia, unspecified | CPT/HCPCS: 82607; 82728; 97597 ==

== ENCOUNTER 2023-08-28 14:09 | Outpatient (CLI) | payer MEDICARE, BC, SELFPAY | END 2023-08-28 14:10 | disposition home or self-care (01) | LOC: WOUND 14:10 | PROVIDERS: PCP Internal Medicine; Visit Provider Surgery | DX: S81.801A Unspecified open wound, right lower leg, initial encounter (principal); S41.001A Unspecified open wound of right shoulder, initial encounter; R64 Cachexia; Z68.1 Body mass index [BMI] 19.9 or less, adult; F17.219 Nicotine dependence, cigarettes, with unspecified nicotine-induced disorders; Z99.81 Dependence on supplemental oxygen | CPT/HCPCS: 99214 ==

== ENCOUNTER 2023-09-11 13:38 | Outpatient (CLI) | payer MEDICARE, BC, SELFPAY | END 2023-09-11 13:39 | disposition home or self-care (01) | LOC: WOUND 13:38 | PROVIDERS: PCP Internal Medicine; Visit Provider Surgery | DX: S81.801A Unspecified open wound, right lower leg, initial encounter (principal); S41.001A Unspecified open wound of right shoulder, initial encounter; R64 Cachexia; F17.219 Nicotine dependence, cigarettes, with unspecified nicotine-induced disorders; Z99.81 Dependence on supplemental oxygen; Z68.1 Body mass index [BMI] 19.9 or less, adult | CPT/HCPCS: 99212 ==

== ENCOUNTER 2023-11-28 15:02 | Outpatient (CLI) | payer MEDICARE, BC, SELFPAY | END 2023-11-28 15:03 | disposition home or self-care (01) | PROVIDERS: PCP Family Medicine; Visit Provider Family Medicine | DX: D50.9 Iron deficiency anemia, unspecified (principal); E53.8 Deficiency of other specified B group vitamins; I10 Essential (primary) hypertension; K92.2 Gastrointestinal hemorrhage, unspecified; R06.09 Other forms of dyspnea | CPT/HCPCS: 80053; 82607; 82728 ==

== ENCOUNTER 2023-12-24 09:30 | Outpatient (RCR) | payer MEDICARE, BC, SELFPAY ==
--- NOTE | 2023-09-05 15:14 | URNOTE ---
Request received for authorization for Iron Dextran (InFed) ([id number]). Prior authorization is not required as services are based on medical necessity and follow Medicare guidelines.
[2023-09-09 13:42] VITALS: BP 100/71; RESP 16; TEMP 36.7; O2SAT 88
[2023-09-09] MEDS: IRON DEXTRAN COMPLEX 25 MG in 0.9 % SODIUM CHLORIDE 100 ml 100 ML 402 MG IVPB (14:34)
[2023-09-09 14:45] VITALS: BP 145/87; PULSE 63; RESP 16; TEMP 36.1
[2023-09-09] MEDS: IRON DEXTRAN COMPLEX 975 MG in 0.9 % SODIUM CHLORIDE 250 ml 250 ML 269.5 MG IVPB (15:36)
--- NOTE | 2023-11-29 14:57 | URNOTE ---
Request received for authorization for Iron Dextran (InFed) ([id number]). Prior authorization is not required as services are based on medical necessity and follow Medicare guidelines.
[2023-12-24] MEDS: IRON DEXTRAN COMPLEX 25 MG in 0.9 % SODIUM CHLORIDE 100 ml 100 ML 402 MG IVPB (10:34)
[2023-12-24] MEDS: IRON DEXTRAN COMPLEX 975 MG in 0.9 % SODIUM CHLORIDE 250 ml 250 ML 270 MG IVPB (12:14)
[2023-12-24 12:15] VITALS: BP 103/70; PULSE 76; RESP 16; TEMP 36.1; O2SAT 97
[2023-12-24 13:40] VITALS: BP 112/76; PULSE 81; RESP 16; TEMP 36.1; O2SAT 94
[2023-12-24 14:05] VITALS: BP 112/76; PULSE 81; RESP 16; TEMP 36.1; O2SAT 94
== END 2024-03-07 23:59 | disposition home or self-care (01) ==
LOC: CCIC 09:30
PROVIDERS: PCP Internal Medicine; Referring Provider Internal Medicine; Visit Provider Clinical Nurse Specialist
DX: D50.9 Iron deficiency anemia, unspecified (principal)
CPT/HCPCS: 96365; 96366; 96376; J1750; J7050

== ENCOUNTER 2024-03-06 08:21 | Emergency (ER) | payer MEDICARE, BC, SELFPAY ==
[2024-03-06] VITALS (15 sets, daily range): BP systolic 129–154; BP diastolic 88–116; PULSE 84–93; RESP 18; TEMP 36.7; O2SAT 89–100; BMI 21.3
--- NOTE | 2024-03-06 08:57 | CRLHL7_ITS ---
For Patients: As a result of the Century Cures Act, medical imaging exams and procedure reports are released immediately into your electronic medical record. You may view this report before your referring provider. If you have questions, please contact your health care provider. INDICATION: Abdominal pain. Epigastric pain. Known AAA. TECHNIQUE: CT chest, abdomen and pelvis acquired with 95 cc of Isovue 370 IV contrast per CTA protocol. Noncontrast imaging of the chest was performed per dissection protocol. COMPARISON: CT chest with contrast 08/02/2023. FINDINGS: CHEST: Cardiovascular structures: Aortic atherosclerosis. Ascending thoracic aorta is dilated to 4 cm. Noncontrast images show no evidence of acute intramural hematoma in the thoracic aorta. No dissection of the thoracic aorta. Main pulmonary artery is dilated to 3.6 cm. Coronary artery calcifications. Heart size is within normal limits. Mediastinum and sydnie: No pathologic lymphadenopathy. Lungs: No pneumothorax. Central airways are patent. Mild emphysema with bilateral scarring, atelectasis and stable subcentimeter nodules most consistent with a benign etiology. No evidence of acute airspace disease. Pleura and pericardium: No effusions. Chest wall and axilla: Unremarkable. ABDOMEN AND PELVIS: Liver: Unremarkable. Spleen: Unremarkable. Pancreas: Unremarkable. Gallbladder and bile ducts: No calcified stones or biliary ductal dilatation. Kidneys: Unremarkable. Adrenal glands: Unremarkable. GI tract: Distal colonic diverticulosis without evidence of acute diverticulitis. No bowel obstruction or focal inflammatory change elsewhere. No free air or free fluid. Lymph nodes: No pathologic lymphadenopathy. Vascular structures: Indwelling aorto bi-iliac stent graft, with celiac, superior mesenteric and renal artery limbs shows no evidence of complication. Mesenteric vessels as imaged are patent. No acute retroperitoneal hemorrhage. Pelvic Organs: Unremarkable. Bones: Demineralization, degenerative changes and chronic compression deformities of the spine, as before. IMPRESSION: 1. No evidence of aortic dissection. 2. No acute abnormality elsewhere in the chest, abdomen or pelvis. Dictated by Aren Sidhu MD @ 03/06/2024 11:00:11 AM Please note that all CT scans at this facility use dose modulation, iterative reconstruction, and/or weight-based dosing when appropriate to reduce radiation dose to as low as reasonably achievable. Dictated by: Aren iSdhu MD @ 03/06/2024 11:00:34 (Electronically Signed)
[2024-03-06] MEDS: IPRAT-ALBUT 0.5-2.5 MG/3 ML NEB 1 NEB IH (09:16)
[2024-03-06 09:21] LABS: HCO3 VBG 35 mmol/L (21-28); PCO2 VBG 49 mmHG (40-50); PO2 VBG 42.9 mmHG (25-47); pH VBG 7.469 (7.32-7.43)
[2024-03-06 09:23] LABS: Lactate* 0.8 mmol/L (0.5-1.9)
[2024-03-06 09:38] LABS: Basophils Absolute Auto 0.03 K/uL (0.00-0.30); Basophils Percent Auto 0.4 % (0.0-3.0); Eosinophils Absolute Auto 0.26 K/uL (0.00-0.50); Eosinophils Percent Auto 3.8 % (0.0-7.0); Hematocrit 37.1 % (33.0-51.0); Hemoglobin* 11.4 gm/dL (12.0-16.0); Immature Granulocytes Abs Auto 0.01 K/uL (0.00-0.30); Immature Granulocytes Pct Auto 0.1 %; Lymphocytes Percent Auto 17.4 % (20-44); Mean Corpuscular HGB Conc 31 gm/dL (32-36); Mean Corpuscular Hemoglobin 29 pg (26-34); Mean Corpuscular Volume 95 fL (80-100); Monocytes Percent Auto 11.3 % (0.0-11.0); Neutrophils Absolute Auto 4.57 K/uL (1.7-7.0); Platelet Count* 176 K/uL (140-440); RDW Coefficient of Variation % 16.3 % (11.5-15.5); Red Blood Count 3.89 m/uL (4.00-5.20); White Blood Count* 6.83 K/uL (4.50-11.00)
[2024-03-06 09:43] LABS: Slide Review Reflex No
--- OUTSIDE RECORDS SUMMARY | 2024-03-06 09:45 | XMS_ITS | Clinical Summary ---
Author Organization [facility] Address [address] [place] [id number] Care Team Providers Care Soaker Name Role Phone [facility] Allergies Active Allergy Reactions Criticality Noted Date Comments Azithromycin Nausea and Vomiting 08/23/2014 Codeine Sulfate Rash Low 04/06/2011 Veins swelling Erythromycin Nausea 04/06/2011 stomach pain Alendronate 09/25/2016 Upset stomach Penicillins Difficulty breathing High 04/06/2011 Tetanus Toxoid Difficulty breathing 04/06/2011 Dizzy spells, faint Medications Medication Sig Dispensed Refills Start Date End Date Status Multiple Vitamins-Minerals (OCUVITE ADULT FORMULA) CAPS Take by mouth. Active albuterol (PROAIR HFA/PROVENTIL HFA/VENTOLIN HFA) 108 (90 Base) MCG/ACT inhalerIndications :Acute bronchitis, unspecified organism,Wheezing Inhale 1-2 puffs into the lungs every 6 hours as needed for shortness of breath / dyspnea 1 Inhaler 1 11/10/2018 Active aspirin (ASPIRIN LOW DOSE) 81 MG EC tablet Take 81 mg by mouth daily Active Vitamin D, Cholecalciferol, 25 MCG (1000 UT) TABS Active ipratropium - albuterol 0.5 mg/2.5 mg/3 mL (DUONEB) 0.5-2.5 (3) MG/3ML neb solutionIndication s:Other emphysema (H) Take 1 vial (3 mLs) by nebulization every 4 hours as needed for shortness of breath / dyspnea 1 Box 1 06/15/2020 Active albuterol (PROVENTIL) (2.5 MG/3ML) 0.083% neb solutionIndication s:Decreased breath sounds,Upper respiratory tract infection, unspecified type,Acute bronchospasm,SHELTON (dyspnea on exertion) Take 1 vial (2.5 mg) by nebulization every 6 hours as needed for shortness of breath / dyspnea or wheezing 50 vial 1 06/15/2020 Active cyanocobalamin (CYANOCOBALAMIN) 1000 MCG/ML injectionIndicatio ns:Vitamin B 12 deficiency Inject 1 mL (1,000 mcg) into the muscle every 30 days 30 mL 3 06/15/2020 Active DULoxetine (CYMBALTA) 60 MG capsuleIndications :Mild major depression (H24) Take 1 capsule (60 mg) by mouth daily 90 capsule 1 08/24/2020 Active DULoxetine (CYMBALTA) 30 MG capsuleIndications :Mild major depression (H24) Take 1 capsule (30 mg) by mouth daily 90 capsule 1 06/05/2021 Active rosuvastatin (CRESTOR) 10 MG tabletIndications: Hyperlipidemia LDL goal <100,TIA (transient ischemic attack) TAKE 1 TABLET(10 MG) BY MOUTH DAILY 90 tablet 1 12/08/2021 Active Active Problems Problem Noted Date Diagnosed Date Cervicalgia 10/05/2020 TIA (transient ischemic attack) 03/29/2020 Mild major depression 11/17/2019 AAA (abdominal aortic aneurysm) without rupture (H24) 05/12/2019 Hyperlipidemia LDL goal <100 05/12/2019 Pulmonary nodules 08/15/2018 Personal history of other drug therapy 6 Osteoporosis 09/25/2016 ALLIE (obstructive sleep apnea) 02/02/2015 Overview: CPAP COPD (chronic obstructive pulmonary disease) Itching 03/11/2013 Osteopenia 01/28/2013 Vitamin D deficiency 11/28/2012 Overview: Problem list name updated by automated process. Provider to review and confirm Imo Update utility Advanced directives, counseling/discussion 11/19 Overview: Parent voices understanding and acceptance of this advice and will call back if any further questions or concerns. Fatigue 11/19/2012 Fibromyalgia Leg swelling Smoker CARDIOVASCULAR SCREENING; LDL GOAL LESS THAN 160 Resolved Problems Problem Noted Date Diagnosed Date Resolved Date Pneumonia 03/07/2011 05/24/2017 Immunizations Name Administration Dates Next Due Influenza (High Dose) 3 valent vaccine 0 Influenza (IIV3) PF 07/24/2007,07/07/2000 Influenza Vaccine 65+ (Fluzone HD) 06/15/2020 Pneumo Conj 13-V (2010&after) 10/17/2015 Pneumococcal 23 valent 03/11/2013,07/07/2000 Family History Medical History Relation Comments No Known Problems Father Heart Disease Mother of Heart at tack Breast Cancer Sister Relation Status Comments Brother Alive Father polio Mother Sister Alive Social History Tobacco Use Types Packs/Day Years Used Date Smoking Tobacco: Every Day Cigarettes 1 30 Smokeless Tobacco: Never Tobacco Cessation:Counseling Given: No Comments:she plans on discontinuing the smoking - February 15; stressed out recently Alcohol Use Standard Drinks/Week Comments Yes 1 (1 standard drink = 0.6 oz pure alcohol) one glass of wine 3-4 times per week AUDIT-C Answer Date Recorded Q1: How often do you have a drink containing alcohol? 4 or more times a week 10/26/2019 Q2: How many drinks containi ng alcohol do you have on a typical day when you are drinking? 1 or 2 0 Frequency of Binge Drinking Not on file 10/08 PHQ-2 Answer Date Recorded PHQ-2 Score 2 06/05/2021 Adolescent Education Answer Date Record ed Getting School Help Needed Not on file 07/14 Sex and Gender Information Value Date Recorded Sex Assigned at Not on file Gender Identity Not on file Sexual Orientation Not on file Last Filed Vital Signs Vital Sign Reading Time Taken Comments Blood Pressure 142/80 06/05/2021 10:40 AM CDT Pulse 83 06/05/2021 10:01 AM CDT Temperature 36.6 ??C (97.8 ??F) 06/05/2021 10:01 AM C DT Respiratory Rate 16 06/05/2021 10:01 AM CDT Oxygen Saturation 96% 06/05/2021 10:01 AM CDT Inhaled Oxygen Concentration - - Weight 46.9 kg (103 lb 8 oz) 06/05/2021 10:01 AM CDT Height 160 cm (5' 3) 06/05/2021 10:01 AM CDT Body Mass Index 18.33 06/05/2021 10:01 AM CDT Plan of Treatment Health Maintenance Due Date Last Done Comments ANNUAL REVIEW OF HM ORDERS 1945 DEPRESSION ACTION PLAN 1945 ZOSTER IMMUNIZATION (1 of 2) 1995 RSV VACCINE ( & 60+) (1 - 1-dose 60+ series) 2005 MEDICARE ANNUAL WELLNESS VISIT 09/25/2017 09/25/2016, 02/02/2015 LUNG CANCER SCREENING 09/16/2020 09/16/2019 , 08/24/2018, 02/21/2018, Additional history exists PHQ-9 12/04/2021 06/05/2021, 03/08, 02/02/2015, Additional history exists FALL RISK ASSESSMENT 06/05/2022 06/05/2021, 06/15/2020, 03/29/2020, Additional history exists LIPID 06/05/2022 06/05/2021, 03/08, 05/12/2019, Additional history exists GLUCOSE 04/13/2023 04/13/2020, 03/08, 11/17/2019, Additional history exists COVID-19 Vaccine ( season) 2023 06/28/2021, 12/09/2020, 11/18/2020 INFLUENZA VACCINE (Season Ended) 2024 06/15/2020, 11/17/2019, 07/24/2007, Additional history exists ADVANCE CARE PLANNING 06/15/2025 06/15/2020 , 11/17/2019 (Declined), 11/19/2012 DEXA 03/09/2035 03/09/2020, 04/06, 12/24/2012, Additional history exists Pneumococcal Vaccine: 65+ Years Completed 10/17/2015, 03/11/2013, 07/07/2000 HEPATITIS C SCREENING Completed 09/25/2016 COPD ACTION PLAN Completed 05/24/2017 MAMMO SCREENING Discontinued 09/16/2019, 04/07, 02/09/2015, Additional history exists SPIROMETRY Completed 11/21/2020, 0605/2020, 10/12/2019, Additional history exists COLONOSCOPY Discontinued 06/01/2021 [address]AL CANCER SCREENING Discontinued CT COLONOGRAPHY Discontinued DTAP/TDAP/TD IMMUNIZATION Discontinued FIT Discontinued FLEX SIG Discontinued HPV IMMUNIZATION Aged Out No longer e ligible based on patient's age to complete this topic IPV IMMUNIZATION Aged Out No longer e ligible based on patient's age to complete this topic MENINGITIS IMMUNIZATION Aged Out No l onger eligible based on patient's age to complete this topic RSV MONOCLONAL ANTIBODY Aged Out No l onger eligible based on patient's age to complete this topic sDNA (Cologuard) Discontinued Procedures Procedure Name Priority Date/Time Associated Diagnosis Comments LIPID REFLEX TO DIRECT LDL PANEL Routine 06/05/2021 11:12 AM CDT Hyperlipidemia LDL goal <100 SPIROMETRY - HIM SCAN Routine 11/21/2020 BASIC METABOLIC PANEL Routine 04/13/2020 12:08 PM CDT Preop general physical exam Elevated blood pressure reading without diagnosis of hypertension DX HIP/PELVIS/SPINE W LAT FRACTION ANALYSIS Routine 03/09/2020 11:51 AM CDT Menopause Senile osteoporosis MA SCREENING BILATERAL W/ MAURIZIO Routine 09/16/2019 10:48 AM MOLDED GOODS OPERATOR Visit for screening mammogram CT CHEST W/O CONTRAST Routine 09/16/2019 10:02 AM MOLDED GOODS OPERATOR Pulmonary nodules HEPATITIS C ANTIBODY Routine 09/25/2016 10:49 AM MOLDED GOODS OPERATOR Routine general medical examination at a health care facility from Last 3 Months or Most Recently Relevant to Health Maintenance Results * Lipid panel reflex to direct LDL Fasting (06/05/2021 11:12 AM CDT) Cholesterol 155 <200 mg/dL 06/06/2021 9:10 AM CDT [facility] Comment: Age 0-19 years Desirable: <170 mg/dL Borderline high: ??170-199 mg/dl High: ?>199 mg/dl Age 20 years and older Desirable: <200 mg/dL Triglycerides 54 <150 mg/dL 06/06/2021 9:10 AM CDT [facility] Comment: 0-9 years: Normal: ?Less than 75 mg/dL Borderline high: ??75-99 mg/dL High: ? Greater than or equal to 100 mg/dL 0-19 years: Normal: ?Less than 90 mg/dL Borderline high: ??90-129 mg/dL High: ? Greater than or equal to 130 mg/dL 20 years and older: Normal: ?Less than 150 mg/dL Borderline high: ??150-199 mg/dL High: ? 200-499 mg/dL Very high: ?? Greater than or equal to 500 mg/dL Direct Measure HDL 60 >=50 mg/dL 2020 9:10 AM CDT [facility] Comment: 0-19 years: ? Greater than or equal to 45 mg/dL Low: Less than 40 mg/dL Borderline low: 40-44 mg/dL 20 years and older: Female: Greater than or equal to 50 mg/dL Male: ?? Greater than or equal to 40 mg/dL LDL Cholesterol Calculated 84 <=100 mg/dL 06/06/2021 9:10 AM CDT [facility] Comment: Age 0-19 years: Desirable: 0-110 mg/dL Borderline high: 110-129 mg/dL High: >= 130 mg/dL Age 20 years and older: Desirable: <100mg/dL Above desirable: 100-129 mg/dL Borderline high: 130-159 mg/dL High: 160-189 mg/dL Very high: >= 190 mg/dL Non HDL Cholesterol 95 <130 mg/dL 06/06/2021 9:10 AM CDT [facility] Comment: 0-19 years: Desirable: ? Less than 120 mg/dL Borderline high: ?? 120-144 mg/dL High: ? Greater than or equal to 145 mg/dL 20 years and older: Desirable: ? 130 mg/dL Above Desirable: 130-159 mg/dL Borderline high: ?? 160-189 mg/dL High: ? 190-219 mg/dL Very high: ?? Greater than or equal to 220 mg/dL Patient Fasting > 8hrs? Yes 06/06/2021 9:10 AM CDT [facility] Blood STRUCTURE OF RIGHT UPPER LIMB / Unknown Venipuncture / Unknown 06/05/2021 11:12 AM CDT 06/05/2021 11:13 AM CDT Lavonne Saúl MERRILL STRIKE OFF MACHINE OPERATOR LAB - BLOOD ORDERA BLES [facility] [address] Lab (no room number, 1st floor of clinic) [place] [address], [facility] [phone] * Spirometry - HIM Scan (11/21/2020) Narrative Jamin Leon - 11/21/2020 [facility] PROGRESS NOTE Provider Outside PFT ORDERABLES * Basic metabolic panel (Ca, Cl, CO2, Creat, Gluc, K, Na, BUN) (04/13/2020 12:08 PM CDT) Sodium 134 133 - 144 mmol/L 04/14/2020 11:00 AM T [facility] Potassium 3.9 3.4 - 5.3 mmol/L 04/14/2020 11:00 AM T [facility] Chloride 101 94 - 109 mmol/L 04/14/2020 11:00 AM T [facility] Carbon Dioxide 25 20 - 32 mmol/L 04/14/2020 11:18 AM T [facility] Anion Gap 8 3 - 14 mmol/L 04/14/2020 11:18 AM T [facility] Glucose 81 70 - 99 mg/dL 04/14/2020 11:18 AM T [facility] Comment:Non Fasting Urea Nitrogen 13 7 - 30 mg/dL 04/14/2020 11:18 AM T [facility] Creatinine 0.77 0.52 - 1.04 mg/dL 04/14/2020 11:18 AM T [facility] GFR Estimate 75 >60 mL/min/{1 .73_m2} 04/14/2020 11:18 AM CDT [facility] Comment: Non GFR Calc Starting 09/23/2018, serum creatinine based estimated GFR (eGFR) will be calculated using the Chronic Kidney Disease Epidemiology Collaboration (CKD-EPI) equation. GFR Estimate If Black 87 >60 mL/min/{1 .73_m2} 04/14/2020 11:18 AM CDT [facility] Comment: GFR Calc Starting 09/23/2018, serum creatinine based estimated GFR (eGFR) will be calculated using the Chronic Kidney Disease Epidemiology Collaboration (CKD-EPI) equation. Calcium 8.5 8.5 - 10.1 mg/dL 04/14/2020 11:18 AM CDT [facility] Blood specimen (specimen) 04/13/2020 12:08 PM CDT 04/13/2020 12:10 PM CDT Alejandro Singer MD LAB - BLOOD ORDERABL ES [facility] [address] [place] [address] * DX Hip/Pelvis/Spine w Lat Fraction Guera (03/09/2020 11:51 AM CDT) Anatomical Region Laterality Modality Dexa Bone Mineral Den sity Narrative 03/09/2020 10:07 PM CDT BONE DENSITOMETRY [address] [address] 03/09/2020 ?? PATIENT: Marty Rivera CHART: [id number] : ??1945 AGE: ??75 year old SEX: ??female REFERRING PROVIDER: ??Tia Oakes MD ?? PROCEDURE: ??Bone density scanning was performed using DXA technology of the lumbar spine and hip. ??Scanning was performed on a [employer] scanner. ??Reporting is completed in the form of a T-score. ??The T-score represents the standard deviation from peak bone mass based on a young healthy adult. ?? REFERENCE T-SCORES: ?Normal ?-1.0 and greater ?Osteopenia ? Between -1.0 and -2.5 ?Osteoporosis ? -2.5 and less ? RISK FACTORS: ??Post-menopausal, Height loss of 2.5 inches, Current tobacco use, ??Follow up osteoporosis, new T5 compression fracture CURRENT TREATMENT: ??None listed ?? FINDINGS: ? Lumbar Spine (L1-L4) ?T-score: ??-2.9, degenerative changes present ? Left Femoral Neck ?T-score: ??-3.6 ? Right Femoral Neck ?T-score: ??-3.6 ? Lumbar (L1-L4) BMD: 0.839 ??Previous: 0.796 ? Total Hip Mean BMD: 0.540 ??Previous: 0.609 ?? Comparison is made to another DXA performed on the same [employer] ?? machine on 04/20/2015. ?? LATERAL VERTEBRAL ASSESSMENT Procedure: ??Vertebral fracture assessment was performed in the lateral decubitus position using a [employer] ??densitometer. Indications for VFA: T-score of -1.0 or worse, age (female>69), age (male >79) and history of vertebral fracture Confounding factors for VFA: Arthritis/degenerative disc disease and marked calcification of abdominal aorta. ??The LVA scan is interpretable from T6 to L5. VFA Findings: Using the semi-quantitative analysis of [employer] there was evidence of no spinal deformity VFA Impression: Marty Rivera has no vertebral fractures identified on the VFA however other imaging shows T5 compression fracture. IMPRESSION Severe osteoporosis on the basis of known vertebral fracture. Degenerative changes at the lumbar spine may falsely elevate results. There has been significant increase in bone density of the lumbar spine. There has been significant decrease in bone density of the hip(s). Recommendations include ensuring adequate Calcium and Vitamin D. The current NOF Guidelines recommend treatment for patients with prior hip or vertebral fracture, T-score -2.5 or below, or 10 year risk of any major osteoporotic fracture >20% or 10 year risk of hip fracture >3%, as calculated using the FRAX calculator (www.shef.ac.uk/FRAX or you can google FRAX). ?? Based on these guidelines, treatment (in addition to calcium and vitamin D) is recommended for this patient, after ruling out other causes of osteoporosis. This is meant as an aid to clinical decision making; one must still use clinical judgement. Follow up can be considered in 2 years. Sierra Quiroz M.D. Electronically signed ?? Tia Oakes MD IMG DEXA ORDERABLE S * MA Screen Bilateral w/Maurizio (09/16/2019 10:48 AM MOLDED GOODS OPERATOR) Anatomical Region Laterality Modality Breast Bilateral Mammography Impressions 09/16/2019 11:14 AM MOLDED GOODS OPERATOR IMPRESSION: BI-RADS CATEGORY: 1 - ??Negative. RECOMMENDED FOLLOW-UP: Annual Mammography. ALEJANDRO LOYD MD Narrative 09/16/2019 11:14 AM MOLDED GOODS OPERATOR SCREENING MAMMOGRAM, BILATERAL, DIGITAL w/CAD and TOMOSYNTHESIS, 09/16/2019 11:14 AM BREAST DENSITY: Heterogeneously dense. CLINICAL INFORMATION: Breast screening. ??Visit for screening mammogram, 05/03/2016, 11/26/2012 FINDINGS: Negative. Stable exam. Screening exam in one year recommended. Procedure Note Alejandro Loyd MD - 09/16/2019 SCREENING MAMMOGRAM, BILATERAL, DIGITAL w/CAD and TOMOSYNTHESIS, 09/16/2019 11:14 AM BREAST DENSITY: Heterogeneously dense. CLINICAL INFORMATION: Breast screening. Visit for screening mammogram, 05/03/2016, 11/26/2012 FINDINGS: Negative. Stable exam. Screening exam in one year recommended. IMPRESSION: BI-RADS CATEGORY: 1 - Negative. RECOMMENDED FOLLOW-UP: Annual Mammography. ALEJANDRO LOYD MD Tia Oakes MD IMG MAMMOGRAPHY OR DERABLES * CT Chest w/o Contrast (09/16/2019 10:02 AM MOLDED GOODS OPERATOR) Anatomical Region Laterality Modality Chest, SUBRAD CT BODY, UMP CT CHEST, RAD CT Computed Tomography Impressions 09/16/2019 12:11 PM MOLDED GOODS OPERATOR IMPRESSION: 1. Multiple indeterminate lung nodules. Due to stability over the past few years, these are probably benign. The nodule in the left upper lobe is stable compared to prior exam. Underlying emphysema. No enlarged lymph nodes. If patient has greater than 30 pack years of smoking, consider low dose annual lung cancer screening CT. 2. Partially imaged abdominal aortic stent graft. BRENT SMALLWOOD MD Narrative 09/16/2019 12:[address] CHEST WITHOUT CONTRAST 09/16/2019 10:02 AM HISTORY: Pulmonary nodule followup. Last test was 08/24/2018. 12-month followup. COMPARISON: CT chest 08/24/2018. TECHNIQUE: Axial images from the thoracic inlet to the lung bases are performed with additional coronal reformatted images. No contrast is utilized. Radiation dose for this scan was reduced using automated exposure control, adjustment of the mA and/or kV according to patient size, or iterative reconstruction technique. FINDINGS: Chest: Biapical pleural-based scarring is noted. Centrilobular emphysema is present. New area of subpleural probable atelectatic change or scarring right upper lobe on image 42 of series 5 measures 1.2 x 1.0 cm. The indeterminate anterolateral left upper lobe lung nodule measures 0.4 cm, previously 0.6 cm. A tiny 0.2 cm posterior right upper lobe nodule on image 75 is unchanged. Probable calcified granuloma right upper lobe on image 100 is also stable. 0.3 cm lateral right upper lobe nodule on image 128 is also unchanged. Architectural distortion and scarring within the anteromedial right middle lobe is stable if not improved. A few additional scattered bilateral calcified granulomas are noted. 0.3 cm anterior left upper lobe nodule is noted on image 33 appears stable, if not slightly smaller, compared to prior exam. No new or enlarging lung lesions. No pleural or pericardial fluid. Heart appears mildly enlarged. Pectus excavatum deformity is again noted. Thyroid gland appears normal in size. No enlarged lymph nodes. Calcified plaque is noted involving the aorta and coronary arteries. Partially imaged aortic stent graft is noted in the upper abdomen. Additional stents in the origins of the SMA, celiac axis and renal arteries are also imaged. Bone window examination is within normal limits. Procedure Note Brent Smallwood MD - 09/16/2019 CT CHEST WITHOUT CONTRAST 09/16/2019 10:02 AM HISTORY: Pulmonary nodule followup. Last test was 08/24/2018. 12-month followup. COMPARISON: CT chest 08/24/2018. TECHNIQUE: Axial images from the thoracic inlet to the lung bases are performed with additional coronal reformatted images. No contrast is utilized. Radiation dose for this scan was reduced using automated exposure control, adjustment of the mA and/or kV according to patient size, or iterative reconstruction technique. FINDINGS: Chest: Biapical pleural-based scarring is noted. Centrilobular emphysema is present. New area of subpleural probable atelectatic change or scarring right upper lobe on image 42 of series 5 measures 1.2 x 1.0 cm. The indeterminate anterolateral left upper lobe lung nodule measures 0.4 cm, previously 0.6 cm. A tiny 0.2 cm posterior right upper lobe nodule on image 75 is unchanged. Probable calcified granuloma right upper lobe on image 100 is also stable. 0.3 cm lateral right upper lobe nodule on image 128 is also unchanged. Architectural distortion and scarring within the anteromedial right middle lobe is stable if not improved. A few additional scattered bilateral calcified granulomas are noted. 0.3 cm anterior left upper lobe nodule is noted on image 33 appears stable, if not slightly smaller, compared to prior exam. No new or enlarging lung lesions. No pleural or pericardial fluid. Heart appears mildly enlarged. Pectus excavatum deformity is again noted. Thyroid gland appears normal in size. No enlarged lymph nodes. Calcified plaque is noted involving the aorta and coronary arteries. Partially imaged aortic stent graft is noted in the upper abdomen. Additional stents in the origins of the SMA, celiac axis and renal arteries are also imaged. Bone window examination is within normal limits. IMPRESSION: 1. Multiple indeterminate lung nodules. Due to stability over the past few years, these are probably benign. The nodule in the left upper lobe is stable compared to prior exam. Underlying emphysema. No enlarged lymph nodes. If patient has greater than 30 pack years of smoking, consider low dose annual lung cancer screening CT. 2. Partially imaged abdominal aortic stent graft. BRENT SMALLWOOD MD Tia Oakes MD IMG CT ORDERABLES * Hepatitis C antibody (09/25/2016 10:49 AM MOLDED GOODS OPERATOR) Hepatitis C Antibody Nonreactive Assay performance characteristics have not been established for newborns, infants, and children NR [facility] Blood specimen (specimen) 09/25/2016 10:49 AM MOLDED GOODS OPERATOR 09/25/2016 10:52 AM MOLDED GOODS OPERATOR Tia Oakes MD LAB - BLOOD ORDERA BLES [facility] [address] [place] [address] from Last 3 Months or Most Recently Relevant to Health Maintenance Care Teams Soaker Relationship Specialty Start Date End Date [facility] - [address] [id number] Assigned PCP 10/31/23
--- OUTSIDE RECORDS SUMMARY | 2024-03-06 09:45 | XMS_ITS | Referral Summary ---
Author Organization [place] Address [address] [place] [address] Care Team Providers Care Power Barker Name Role Phone [facility] Allergies Active Allergy Reactions Criticality Noted [...] 13-V (2010&after) 10/17/2015 Pneumococcal 23 valent 03/11/2013,07/07/2000 Social History Tobacco Use Types Packs/Day Years [...] 06/05/2021 10:01 AM CDT Plan of Treatment Not on file Procedures Procedure Name Priority Date/Time Associated Diagnosis [...] BILATERAL W/ MAURIZIO Routine 09/16/2019 10:48 AM RETAIL STORE CLERK Visit for screening mammogram CT CHEST W/O CONTRAST Routine 09/16/2019 10:02 AM RETAIL STORE CLERK Pulmonary nodules HEPATITIS C ANTIBODY Routine 09/25/2016 10:49 AM RETAIL STORE CLERK Routine general medical examination at a health [...] AM CDT 06/05/2021 11:13 AM CDT Lavonne Hays APRN PLASMA CENTER TECHNICIAN LAB - BLOOD [facility] [address] Lab (no room number, 1st floor of clinic) [place] [address], [facility] [phone] * Spirometry - HIM Scan (11/21/2020) Jamin Borrego - 11/21/2020 [facility] PROGRESS NOTE Provider Outside PFT ORDERABLES * Basic metabolic panel (Ca, Cl, CO2, Creat, Gluc, K, Na, BUN) (04/13/2020 12:08 PM CDT) Sodium 134 133 - 144 mmol/L 04/14/2020 11:00 AM [facility] Potassium 3.9 3.4 - 5.3 mmol/L 04/14/2020 11:00 AM [facility] Chloride 101 94 - 109 mmol/L 04/14/2020 11:00 AM [facility] Carbon Dioxide 25 20 - 32 mmol/L 04/14/2020 11:18 AM [facility] Anion Gap 8 3 - 14 mmol/L 04/14/2020 11:18 AM [facility] Glucose 81 70 - 99 mg/dL 04/14/2020 11:[address] [facility] Comment:Non Fasting Urea Nitrogen 13 7 - 30 mg/dL 04/14/2020 11:18 AM [facility] Creatinine 0.77 0.52 - 1.04 mg/dL 04/14/2020 11:[address] [facility] GFR Estimate 75 >60 mL/min/{1 .73_m2} 04/14/2020 11:18 AM [facility] Comment: Non GFR Calc Starting 09/23/2018, serum creatinine based estimated GFR (eGFR) will be calculated using the Chronic Kidney Disease Epidemiology Collaboration (CKD-EPI) equation. GFR Estimate If Black 87 >60 mL/min/{1 .73_m2} 04/14/2020 11:[address] [facility] Comment: GFR Calc Starting 09/23/2018, serum creatinine based estimated GFR (eGFR) will be calculated using the Chronic Kidney Disease Epidemiology Collaboration (CKD-EPI) equation. Calcium 8.5 8.5 - 10.1 mg/dL 04/14/2020 11:[address] [facility] Blood specimen (specimen) 04/13/2020 12:08 PM CDT 04/13/2020 12:10 PM CDT Alejandro Singer MD LAB - BLOOD ORDERABL ES [facility] [address] [place] [address] * DX Hip/Pelvis/Spine w Lat Fraction Guera (03/09/2020 11:51 AM CDT) Anatomical Region Laterality Modality Dexa Bone Mineral Den sity Narrative 03/09/2020 10:07 PM CDT BONE DENSITOMETRY [address] [address] 03/09/2020 ?? PATIENT: Marty Rivera CHART: [id number] : ??1945 AGE: ??75 year old SEX: ??female REFERRING PROVIDER: ??Tia Oakes MD ?? PROCEDURE: ??Bone density scanning was performed using DXA technology of the lumbar spine and hip. ??Scanning was performed on a [id number] scanner. ??Reporting is completed in the form [...] to another DXA performed on the same [employer] ?? machine on 04/20/2015. ?? LATERAL VERTEBRAL ASSESSMENT Procedure: ??Vertebral fracture assessment was performed in the lateral decubitus position using a [employer] [facility] ??densitometer. Indications for VFA: T-score of -1.0 or worse, age (female>69), age (male >79) and history of vertebral fracture Confounding factors for VFA: Arthritis/degenerative disc disease and marked calcification of abdominal aorta. ??The LVA scan is interpretable from T6 to L5. VFA Findings: Using the semi-quantitative analysis of Earlene there was evidence of no spinal deformity [...] MA Screen Bilateral w/Maurizio (09/16/2019 10:48 AM RETAIL STORE CLERK) Anatomical Region Laterality Modality Breast Bilateral Mammography Impressions 09/16/2019 11:14 AM RETAIL STORE CLERK IMPRESSION: BI-RADS CATEGORY: 1 - ??Negative. RECOMMENDED FOLLOW-UP: Annual Mammography. ALEJANDRO LOYD MD Narrative 09/16/2019 11:14 AM RETAIL STORE CLERK SCREENING MAMMOGRAM, BILATERAL, DIGITAL w/CAD and TOMOSYNTHESIS, [...] CT Chest w/o Contrast (09/16/2019 10:02 AM RETAIL STORE CLERK) Anatomical Region Laterality Modality Chest, SUBRAD CT BODY, UMP CT CHEST, RAD CT Computed Tomography Impressions 09/16/2019 12:11 PM RETAIL STORE CLERK IMPRESSION: 1. Multiple indeterminate lung nodules. Due to stability over the past few years, these are probably benign. The nodule in the left upper lobe is stable compared to prior exam. Underlying emphysema. No enlarged lymph nodes. If patient has greater than 30 pack years of smoking, consider low dose annual lung cancer screening CT. 2. Partially imaged abdominal aortic stent graft. BRENT MSALLWOOD MD Narrative 09/16/2019 12:[address] CHEST WITHOUT CONTRAST 09/16/2019 10:02 AM [...] * Hepatitis C antibody (09/25/2016 10:49 AM RETAIL STORE CLERK) Hepatitis C Antibody Nonreactive Assay performance characteristics have not been established for newborns, infants, and children NR [facility] Blood specimen (specimen) 09/25/2016 10:49 AM RETAIL STORE CLERK 09/25/2016 10:52 AM RETAIL STORE CLERK Tia Oakes MD LAB - BLOOD ORDERA BLES [facility] [address] [place] [address] from Last 3 Months or Most Recently Relevant to Health Maintenance Care Teams Power Barker Relationship Specialty Start Date End Date [facility] [address] [address] Assigned PCP 10/31/23
--- OUTSIDE RECORDS SUMMARY | 2024-03-06 09:45 | XMS_ITS | Encounter Summary ---
Author Organization [place] Address [address] [place] [address] Care Team Providers Care Chief Orthoptist Name Role Phone Tia Oakes MD Unavailable [phone] Lavonne Hays APRN, CNP Primary Care Provider Belen vailable Lavonne Hays APRN, CNP Unavailable Unavailab Tia Darling MD Unavailable [phone] Lavonne Hays APRN CUSTOMER CARE CONSULTANT Unavailable Unavailab Alejandro Florence MD Unavailable [phone] Lavonne Hays APRN CUSTOMER CARE CONSULTANT Unavailable Unavailab [facility] Unavailable Encounter Details Date Type Department Care Team (Latest Contact Info) Description 06/05/2021 Historic Results Social History Tobacco Use Types Packs/Day Years Used Date Smoking Tobacco: Every Day Cigarettes 1 30 Smokeless Tobacco: Never Comments:she plans on discon tinuing the smoking - February 15; stressed out [...] Answer Date Recorded PHQ-2 Score 2 06/05/2021 Sex and Gender Information Value Date Recorded Sex Assigned at Not on file Gender Identity Not on file Sexual Orientation Not on file COVID-19 Exposure Response Date Recorded In the last month, have you been in contact with someone who was confirmed or suspected to have Coronavirus / COVID-19? No / Unsure 06/05/2021 9:54 AM CDT documented as of this encounter Plan of Treatment Not on file documented as of this encounter Visit Diagnoses Not on filedocumented in this encounter Additional Health Concerns Assessment Noted Time PHQ-9 Depression Total Score: 10 021 10:07 AM CDT documented as of this encounter Care Teams Chief Orthoptist Relationship Specialty Start Date End Date Lavonne Hays APRN CUSTOMER CARE CONSULTANT [address] [place] [address] PCP - General Internal Medicine 05/19/21 12/18/23 Tia Oakes MD [address] [address] Assigned PCP 04/21/21 06/10/21 Lavonne Hays APRN CUSTOMER CARE CONSULTANT NO INFO AVAILABLE 04/29/2023 Assigned PCP 06/11/21 10/14/21 Tia Oakes MD [address] [place] [address] Assigned PCP 10/15/21 12/16/21 Lavonne Hays APRN CUSTOMER CARE CONSULTANT NO INFO AVAILABLE 04/29/2023 Assigned PCP 12/17/21 12/07/22 Alejandro Singer MD [address] [address] Assigned PCP 12/08/22 04/19/23 Lavonne Hays APRN CUSTOMER CARE CONSULTANT NO INFO AVAILABLE 04/29/2023 Assigned PCP 04/20/23 10/30/23 [facility] [address] [address] Assigned PCP 10/31/23 documented as of this encounter
--- OUTSIDE RECORDS SUMMARY | 2024-03-06 09:45 | XMS_ITS | Encounter Summary ---
Author Organization [place] Address [address] [place] [address] Care Team Providers Care Licensing Worker Name Role Phone Lavonne Hays APRN, CNP Primary Care Provider Belen Tia Suarez MD Unavailable [phone] Lavonne Hays APRN, CNP Unavailable Unavailab Alejandro Florence MD Unavailable [phone] Lavonne Hays APRN, CNP Unavailable Unavailab [facility] Unavailable Reason for Visit * Reason Comments Medication Refill Encounter Details Date Type Department Care Team (Late st Contact Info) Description 12/08/2021 Refill [facility] [address] [place] [phone] Lavonne Hays APRN CNP NO INFO AVAILABLE 04/29/2023 Medication Refill Social History Tobacco Use Types Packs/Day Years [...] on file Sexual Orientation Not on file documented as of this encounter Miscellaneous Notes * Telephone Encounter - Bri Mason RN - 12/08/2021 1:55 PM CST Prescription approved per [facility] Refill Protocol. Bri Mason RN O TAPE DUPLICATOR documented in this encounter Plan of Treatment Not on file documented as of this encounter Visit Diagnoses Diagnosis Hyperlipidemia LDL goal <100 Other and unspecified hyperlipidemia TIA (transient ischemic attack) Unspecified transient cerebral ischemia documented in this encounter Additional Health Concerns Assessment Noted Time PHQ-9 Depression Total Score: 10 021 10:07 AM CDT documented as of this encounter Care Teams Licensing Worker Relationship Specialty Start Date End Date Lavonne Hays APRN CYBER INCIDENT ANALYST PCP - General Internal Medicine 05/19/21 12/18/23 Tia Oakes MD [address] [place] [address] Assigned PCP 10/15/21 12/16/21 Lavonne Hays APRN CYBER INCIDENT ANALYST NO INFO AVAILABLE 04/29/2023 Assigned PCP 12/17/21 12/07/22 Alejandro Sniger MD [address] [facility] [address] [place] [address] Assigned PCP 12/08/22 04/19/23 Lavonne Hays APRN CYBER INCIDENT ANALYST NO INFO AVAILABLE 04/29/2023 Assigned PCP 04/20/23 10/30/23 [facility] [address] [place], [place] [address] Assigned PCP 10/31/23 documented as of this encounter
--- OUTSIDE RECORDS SUMMARY | 2024-03-06 09:46 | XMS_ITS | Encounter Summary ---
Author Organization [facility] Address [address] [place] [address] Care Team Providers Care Wind Farm Support Specialist Name Role Phone Erinn Reina M.D. Primary Care Provider Reason for Visit * Reason Onset Date Comments [employer] form 02/19/2024 Encounter Details Date Type Department Care Team (Latest Contact Info) Description 02/19/2024 Clinical Communication Division of Pulmonary Medicine in [place], [place] [address] [place] [phone] Seun Bey M.D. [address] [place] [phone] [employer] form Social History Tobacco Use Types Packs/Day Years Used Date Smoking Tobacco: Every Day Cigarettes 0.3 40 Smokeless Tobacco: Never Alcohol Use Standard Drinks/Week Comments Yes 7 (1 standard drink = 0.6 oz pur e alcohol) Humiliation, Afraid, Rape, and Kick questionnair e Answer Date Recorded Within the last year, have y ou been afraid of your partner or ex-partner? No 04/10/2023 Within the last year, have y ou been humiliated or emotionally abused in other ways by your partner or ex-partner? No Within the last year, have y ou been kicked, hit, slapped, or otherwise physically hurt by your partner or ex-partner? No 04/10/2023 Within the last year, have y ou been raped or forced to have any kind of sexual activity by your partner or ex-partner? No 04/10/2023 Social Connection and Isolat ion Panel [NHANES] Answer Date Recorded In a typical week, how many times do you talk on the phone with family, friends, or neighbors? More than three times a week 03/05/2022 How often do you get togethe r with friends or relatives? Patient declined 03/05/2022 How often do you attend [facility] or caodaism services? 1 to 4 times per year 03/05/2022 Do you belong to any clubs o r organizations such as mu-ism groups, unions, fraternal or athletic groups, or school groups? No 03/05/2022 How often do you attend meet ings of the clubs or organizations you belong to? 1 to 4 times per year 03/05/2022 Are you , , di vorced, , never , or living with a partner? 03/05/2022 AUDIT-C Answer Date Recorded Q1: How often do you have a drink containing alc ohol? 2-3 times a week 03/05/2022 Q2: How many drinks containi ng alcohol do you have on a typical day when you are drinking? 1 or 2 03/05/2022 Q3: How often do you have si x or more drinks on one occasion? Never 03/05/2022 Overall Financial Resource Strain (CARDIA) Answe r Date Recorded How hard is it for you to pa y for the very basics like food, housing, medical care, and heating? Somewhat hard 04/10/2023 PHQ-2 Answer Date Recorded PHQ-2 Score 1 08/15/2022 [facility] - Occupational Stress Questionnaire Answer Date Recorded Do you feel stress - tense, restless, nervous, or anxious, or unable to sleep at night because your mind is troubled all the time - these days? Rather much 03/05/2022 Exercise Vital Sign Answer Date Recorde d On average, how many days pe r week do you engage in moderate to strenuous exercise (like a brisk walk)? 0 days 04/10/2023 On average, how many minutes do you engage in exercise at this level? 0 min 04/10/2023 Hunger Vital Sign Answer Date Recorded Within the past 12 months, y ou worried that your food would run out before you got the money to buy more. Never true 04/10/20 23 Within the past 12 months, t he food you bought just didn't last and you didn't have money to get more. Never true 04/10/2023 PRAPARE - Transportation Answer Date Re corded In the past 12 months, has l ack of transportation kept you from medical appointments or from getting medications? Yes 02/2023 In the past 12 months, has l ack of transportation kept you from meetings, work, or from getting things needed for daily living? No 04/10/2023 Depression Answer Date Recor ded PHQ-9 Total Score (max 27) 6 08/15 Nutrition Answer Date Recorded On average, how many serving s of fruits and vegetables do you eat per day (serving size is equal to 1 cup or approximately the size of a tennis ball)? 0-2 04/10/2023 Dental Answer Date Recorded Dental: Regular Dentist No 05/15/20 21 Employment Answer Date Recorded Employment status Retired 04/10/2023 Housing Stability Answer Date Recorded What is your living situation today? I have a [facility] place to live 04/10/2023 Education Answer Date Recorded What is the highest level of school you have completed or the highest degree you have received? 12th grade 04/14/2019 Sex and Gender Information Value Date Recorded Sex Assigned at Female 10/24/2023 10:51 PM HARVESTING MANAGER Gender Identity Female 02/10/2019 11:51 AM CDT Sexual Orientation Straight 02/10/2019 11 :51 AM CDT documented as of this encounter Miscellaneous Notes * Telephone Encounter - Trice Josee Chavez - 02/19/2024 3:48 PM CDT Pulmonary Note: Call Message Caller: Patient Preferred contact: Authorized: Yes Diagnosis: #1 Dyspnea on exertion, multifactorial #2 Chronic obstructive pulmonary disease GOLD IIIB, MMRC-4, with chronic hypoxic respiratory failure #3 Heart failure preserved ejection fraction #4 Pulmonary hypertension with components of group 3 and potentially group 2 disease, most recent RVSP of 61 mm Hg #5 Active tobacco use #6 Pulmonary cachexia Last Appointment: 12/03/2023 Message: Patient called wanting to give you a heads up that she will be faxing a form from [employer] stating that she is on oxygen. Action Requested: Fill out form once we receive it. Additional Notes: Will let you know once I get it. documented in this encounter Plan of Treatment Upcoming Encounters Date Type Department Care Team (Late st Contact Info) Description 03/10/2024 9:15 AM CDT Clinical Support Department of Physical Medicine and Rehabilitation in [place] [address] [place] [address] Rod Collins M.D. [address] [place] [phone] Elana Winters P, P.T. [facility] [place] [phone] 03/17/2024 9:15 AM CDT Clinical Support Department of Physical Medicine and Rehabilitation in [place] [address] [place] [address] Rod Collins M.D. [address] [place] [phone] Elana Winters P, P.T. [facility] [place] [address] 03/24/2024 12:45 PM CDT Clinical Support Department of Physical Medicine and Rehabilitation in [place], [place] [address] [place] [address] Rod Collins M.D. [address] [place] [phone] Elana Winters P, P.T. [address] [place] [phone] 03/31/2024 12:45 PM CDT Clinical Support Department of Physical Medicine and Rehabilitation in [place], [place] [address] [place] [address] Rod Collins M.D. [address] [place] [phone] Elana Winters, P.T. [facility] [place] [phone] 04/07/2024 12:45 PM CDT Clinical Support Department of Physical Medicine and Rehabilitation in [place], [place] [address] [place] [address] Rod Collins M.D. [address] [place] [phone] Elana Winters, P.T. [address] [place] [phone] 04/14/2024 12:45 PM CDT Clinical Support Department of Physical Medicine and Rehabilitation in [place], [place] [address] [place] [address] Rod Collins M.D. [address] [place] [phone] Elana Winters P, P.T. [address] [place] [phone] 04/21/2024 12:45 PM CDT Clinical Support Department of Physical Medicine and Rehabilitation in [place], [place] [address] [place] [address] Rod Collins M.D. [address] [place] [phone] Elana Winters P, P.T. [address] [place] [phone] 04/28/2024 12:45 PM CDT Clinical Support Department of Physical Medicine and Rehabilitation in [place], [place] [address] [place] [phone] Rod Collins M.D. [address] [place] [address] Elana Winters, P.T. [address] [place] [phone] documented as of this encounter Visit Diagnoses Not on filedocumented in this encounter Additional Health Concerns Assessment Noted Time PHQ-9 Depression Total Score: 6 08/15/20 22 2:06 AM HARVESTING MANAGER documented as of this encounter Care Teams Wind Farm Support Specialist Relationship Specialty Start Date End Date Erinn Reina M.D. [address] [place] [address] [place] [phone] PCP - General Family Medicine 09/08/21 documented as of this encounter
--- OUTSIDE RECORDS SUMMARY | 2024-03-06 09:46 | XMS_ITS ---
Author Organization [facility] Address [address] [place] [address] Care Team Providers Care Imaging Technician Name Role Phone Unavailable Unavailable Unavailable Surgery Details Not on file Complications Check Surgery Details section. Procedure Estimated Blood Loss Check Surgery Details section. Procedure Findings Check Surgery Details section. Procedure Specimens Taken Check Surgery Details section.
--- OUTSIDE RECORDS SUMMARY | 2024-03-06 09:46 | XMS_ITS | Referral Summary ---
Author Organization [facility] Address [address] [place] [id number] Care Team Providers Care Die Cleaner Name Role Phone Erinn Reina M.D. Primary Care Provider [phone] Source Comments Patient records contain information from all sites at [facility]. For routine questions regarding patient records, call [phone] during business hours, M-F 8:00 AM - 5:00 PM Central Time. Record requests for emergency care only can be directed to [phone] at any time.[facility] Encounters Date Type Department Care Team Description 03/04/2024 1:30 PM CDT Office Visit Division of Pulmonary Medicine in [place], [place] [address] [place] [address] Arjun Umana M.D. Chronic Obstructive Pulmonary Disease (HCC) (Primary Dx); Hypertension Pulmonary (HCC); Chronic Right Heart Failure (HCC); Nicotine Dependence Cigarettes; Abdominal Pain 02/19/2024 Clinical Communication Division of Pulmonary Medicine in [place], [place] [address] [place] [address] Seun Bey M.D. Xcell energy form 02/18/2024 10:45 AM CDT Comprehensive Visit Department of Physical Medicine and Rehabilitation in [place], [place] [address] [place] [address] Rod Collins M.D. Ambroz, Colleen P, P.T. Pain Back (Primary Dx); Osteoporosis; Pain Low Back Unspecified 02/05/2024 Orders Only Division of Endocrinology in [place], [place] [address] [place] [address] Rod Collins M.D. Osteoporosis (Primary Dx); Pain Low Back Unspecified; Pain Back 02/04/2024 Clinical Communication Division of Endocrinology in [place], [place] [address] [place] [address] Rod Collins M.D. 02/04/2024 10:00 AM CDT Clinical Support Department of Physical Medicine and Rehabilitation in [place], [place] [address] [place] [address] Tony Schwartz P.A.-C. Ambroz, Colleen P, P.TAnn-Marie Fibromyalgia (Primary Dx); Pain Low Back Unspecified 02/01/2024 Orders Only Division of Endocrinology in [place], [place] [address] [place] [address] Rod Collins M.D. Anemia Iron Deficiency (Primary Dx); Osteoporosis 01/29/2024 Clinical Communication Department of Family Medicine, [facility], in [place], [place] [address] [place] [address] Erinn Reina M.D. 01/29/2024 10:45 AM CDT Clinical Support Department of Physical Medicine and Rehabilitation in [place], [place] [address] [place] [address] Tony Schwartz P.A.-C. Ambroz, Colleen P, P.TAnn-Marie Fibromyalgia (Primary Dx); Pain Low Back Unspecified 01/28/2024 9:00 AM CDT Comprehensive Visit Division of Endocrinology in [place], [place] [address] [place] [address] Jesus Feng APRN CAnn-MarieN.PRod Suarez M.D. Osteoporosis (Primary Dx); Pain Back; Fracture Vertebra Compression Thoracic Closed Initial (HCC) 01/17/2024 12:45 PM CDT Clinical Support Department of Physical Medicine and Rehabilitation in [place], [place] [address] [place] [address] Tony Schwartz P.A.-C. Ambroz, Colleen P, P.T. Fibromyalgia (Primary Dx); Pain Low Back Unspecified 01/15/2024 11:30 AM CDT - 01/15/2024 11:59 PM CDT Hospital Encounter Department of Laboratory Medicine in [place], [place] [address] [place] [address] Vitor Calle M.D. Dyspnea Multifactorial; Anemia Iron Deficiency Discharge Disposition: Home or Self Care 01/09/2024 Orders Only Department of Vascular Medicine in [place], [place] [address] [place] [address] Tony Schwartz P.A.-C. Anemia Iron Deficiency (Primary Dx) 01/08/2024 11:30 AM CDT Office Visit Department of Cardiovascular Diseases in [address] [address] Vitor Calle M.D. Dyspnea Multifactorial (Primary Dx) 01/07/2024 Orders Only [facility] Erinn Reina M.D. 01/06/2024 12:30 PM CDT Clinical Support Department of Physical Medicine and Rehabilitation in [place], [place] [address] [place] [address] Tony Schwartz P.A.-C. Ambroz, Colleen P, P.T. Fibromyalgia; Pain Low Back Unspecified 01/02/2024 9:15 AM CDT Clinical Support Department of Physical Medicine and Rehabilitation in [place], [place] [address] [place] [address] Tony Schwartz P.A.-C. Ambroz, Colleen P, P.T. Fibromyalgia (Primary Dx); Pain Low Back Unspecified 01/01/2024 1:14 PM CDT - 01/01/2024 11:59 PM CDT Hospital Encounter Department of Cardiovascular Diseases in [address] [address] Vitor Calle M.D. Dilated Aortic Root (HCC); Dyspnea Multifactorial Discharge Disposition: Home or Self Care 12/26/2023 10:45 AM CDT Clinical Support Department of Physical Medicine and Rehabilitation in [place], [place] [address] [place] [address] Tony Schwartz P.A.-C. Ambroz, Colleen P, PAnn-MarieTAnn-Marie Fibromyalgia (Primary Dx); Pain Low Back Unspecified 12/05/2023 Clinical Communication Division of Pulmonary Medicine in [place], [place] [address] [place] [address] Seun Bey M.D. from Last 3 Months Allergies Active Allergy Reactions Criticality Noted Date Comments Alendronic Acid GI intolerance 09/25/2016 Upset stomach Azithromycin Nausea And Vomiting 10/28/2018 Codeine Rash 10/28/2018 Erythromycin Nausea And Vomiting 10/28/2018 Penicillins Shortness of breath (Reselect Reaction) High 04/06/2011 Tetanus Toxoid Shortness of breath (Reselect Reaction) 04/06/2011 Dizzy spells, faint Medications Medication Sig Dispensed Refills Start Date End Date Status fexofenadine-pseudoe phedrine (JIHAN-D 24) 180-240 mg per 24 hr tablet Take 1 tablet by mouth daily as needed for allergies or rhinitis. Active BEVACIZUMAB VTRE by intravitreal route. Eye injections by MD as directed Active acetaminophen (TYLENOL) 500 mg tablet Take 2 tablets (1,000 mg total) by mouth every 6 (six) hours as needed for pain (Purchase over the counter. First line for pain.). 05/05/2019 Active DULoxetine (CYMBALTA) [address] capsule Take 30 mg by mouth daily. 06/05/2021 Active DME Oxygen Inhale. DME Order Patient stated she uses 02 at night with 2L Active torsemide (DEMADEX) 20 mg tablet Take 20 mg by mouth daily. 01/19/2023 Active ipratropium-albutero L (DUONEB) 0.5-2.5 mg/3 mL nebulizer solution Inhale 3 mL by nebulization 4 (four) times a day as needed for wheezing or shortness of breath. 180 mL 2 02/13/2023 Active fluticasone propionate (FLONASE) 50 mcg/actuation nasal sprayIndications:Cou gh Post Infectious (Cough Subacute) SHAKE LIQUID AND USE 2 SPRAYS IN EACH NOSTRIL DAILY 48 g 3 2023 Active lidocaine (LIDODERM) 5 % Place 1 patch on the skin daily. 05/28/[address] tablet Take 1 tablet (81 mg total) by mouth daily. 90 tablet 3 10/09/2023 Active rosuvastatin (CRESTOR) 10 mg tablet Take 1 tablet (10 mg total) by mouth daily. 90 tablet 3 10/09/2023 Active fluticasone-umeclidi nium-vilanterol (Trelegy Ellipta) 100-62.5-25 mcg/actuation inhalerIndications:C hronic Obstructive Pulmonary Disease Moderate (HCC) Inhale 1 puff once daily. 60 each 11 11/08/2023 Active Ventolin HFA 90 mcg/actuation inhalerIndications:C hronic Obstructive Pulmonary Disease (HCC),Dyspnea Multifactorial Inhale 2 puffs every 4 (four) hours as needed for wheezing or shortness of breath. 18 g 11 11/08/2023 Active spironolactone (ALDACTONE) 25 mg tablet Take 0.5 tablets (12.5 mg total) by mouth daily. 45 tablet 1 01/08/2024 Active calcium citrate (CALCITRATE) 950 mg (200 mg calcium) tablet Take 2 tablets (400 mg of calcium total) by mouth daily with breakfast. 180 tablet 3 01/28/2024 Active Hospital, Clinic, or Other Facility Administered Medication Ordered Dose Route Frequency Start Date End Date Status cyanocobalamin 1,000 mcg/mL injection 1,000 mcg (VITAMIN B12)Indications:Deficienc y Vitamin B12 1000 mcg SC Every 30 days 11/29/2021 Active cyanocobalamin 1,000 mcg/mL injection 1,000 mcg (VITAMIN B12)Indications:Deficienc y Vitamin B12 1000 mcg IM Every 30 days 11/17/2022 Active Active Problems Problem Noted Date Diagnosed Date Hypertension Pulmonary 03/05/2024 Chronic Right Heart Failure 03/05/2024 Osteoporosis 02/01/2024 Anemia Iron Deficiency 03/07/2022 COVID-19 Infection 08/14/2021 Anemia 04/13/2021 Abdominal Pain 08/17/2020 Transient Ischemic Attack 03/29/2020 Follow Up Examination Status Post Surgery 2019 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 Provider to review and confirm Imo Update utility Nicotine Dependence Cigarettes 08/24/2009 Chronic Obstructive Pulmonary Disease 09/10/2008 Overview: History: Ms. Rivera is a pleasant 77 y.o. female, current smoker with about 30- 60py cumulative smoking history. Her primary senior fund accountant is Dr. Thorpe. In Nov 2021, she was last seen with Dr. Thorpe and was transitioned to triple inhaler therapy. She couldn't afford Trelegy and switched to Breztri. At this time, repeat oxygen titration studies showed improved oxygenation so she was also taken off of oxygen at this time. Current regimen: ?? Breztri aerosphere 160-9-4.8 (budesonide/glycopyrrolate/formoterol fumarate) 2 puffs BID ?? Albuterol inhaler 2 puffs q4h prn ?? Duoneb nebulizer solution prn ?? Nocturnal oxygen 2L NC Interval event: About 2 weeks ago, she had significant acute worsening of her chronic shortness of breath, that she was experiencing on exertion (even just 1-2 step), but also at rest if she bends over. She was not able to lie flat at night. She feels suffocating and can't sleep if she doesn't have oxygen on. Around this time, her legs were also significantly more edematous on both size, double what they are now. She unfortunately was not able to get in to see Dr. Thorpe, did not get steroid or antibiotics, but the shortness of breath has improved, as is her leg swelling. She still reports some bendopnea, orthopnea, dyspnea on exertion more than baseline. She would like to be reassessed for oxygen prescription. Last Assessment & Plan: With her clinical presentation, I am more worried about volume overload and heart failure exacerbation than acute exacerbation of COPD/asthma as it partially improved without any change in inhaler regimen, steroid, or antibiotics. She could have had a viral infection but wouldn't explain her worsened peripheral edema, bendopnea, orthopnea concurrently. Since she has had some partial improvement, I will start with CXR, CBC, Cr, NT-pro BNP levels, oxygen titration, and overnight oximetry. She likely will need a diuretic to maintain net neutral. With regards to her SpO2 goal, in the setting of her pulmonary hypertension, I would recommend maintaining SpO2 above 90% instead of our usual COPD goal of 88-92% to prevent worsening PHTN. For the future, we discussed COPD action plan with as needed scripts for steroid and ABX that she can fill when she has symptoms of exacerbation, so that she doesn't have to wait. She has had prior intolerances to antibiotics, but willing to trial doxycycline for now. If cannot tolerate in the future, we can switch it. Fibromyalgia Pain Back Pain Thoracic Spine Imbalance Non Orthopedic Weakness Muscle Weakness General Cervical Disc Disorder Immunizations Name Administration Dates Next Due Influenza Split 07/07/2000 Influenza TIV (IM) 07/24/2007 Influenza high dose QV(65 years or older) (PF) 0 06/15/2020 PCV13 10/17/2015 PPSV23 03/11/2013,07/07/2000 SARS-COV-2 (COVID-19) - PFIZ ER (Discontinued)(12 years or older) 06/28/2021 SARS-COV-2 (COVID-19) - PFIZ ER TS(Discontinued)(12 years or older) 05/11/2022 influenza high dose (65 years or older) (PF) 08/2020 Social History Tobacco Use Types Packs/Day Years Used Date Smoking Tobacco: Every Day Cigarettes 0.3 40 Smokeless Tobacco: Never Tobacco Cessation:Ready to Q uit: Not Asked; Counseling Given: Not Answered Alcohol Use Standard Drinks/Week Comments Yes 7 [...] declined 03/05/2022 How often do you attend chur or rastafari services? 1 to 4 times per year 03/05/2022 Do you belong to any clubs o r organizations such as faith groups, unions, fraternal or athletic groups, or [...] Answer Date Recorded PHQ-2 Score 1 [facility]/2022 [facility] Occupational Stress Questionnaire Answer Date Recorded [...] your living situation today? I have a [facility] place to live 04/10/2023 Education Answer Date Recorded What is the highest level of school you have completed or the highest degree you have received? 12th grade 04/14/2019 Sex and Gender Information Value Date Recorded Sex Assigned at Female 10/24/2023 10:51 PM INTERTYPE OPERATOR Gender Identity Female 02/10/2019 11:51 AM CDT Sexual Orientation Straight 02/10/2019 11 :51 AM CDT Last Filed Vital Signs Vital Sign Reading Time Taken Comments Blood Pressure 105/74 03/04/2024 1:14 PM CDT Pulse 111 03/04/2024 1:14 PM CDT Temperature 36.6 ??C (97.8 ??F) 03/04/2024 1 :14 PM CDT Respiratory Rate 18 12/03/2022 3:20 PM INTERTYPE OPERATOR Oxygen Saturation 73% 03/04/2024 1:1 4 PM CDT No on O2, but O2 set at 2L, she had just used the bathroom before coming back Inhaled Oxygen Concentration - - Weight 44.5 kg (98 lb 1.7 oz) 03/04/2024 1:14 PM CDT Height 150.7 cm (4' 11.33) 03/04/2024 1:14 PM CDT Body Mass Index 19.59 03/04/2024 1:14 PM CDT Plan of Treatment Upcoming Encounters Date Type Department Care Team (Late st Contact Info) Description 03/10/2024 9:15 AM CDT Clinical Support Department of Physical Medicine and Rehabilitation in [place] [address] [place] [address] Rod Collins M.D. [address] [place] [address] Elana Winters P, P.T. [address] [place] [phone] 03/17/2024 9:15 AM CDT Clinical Support Department of Physical Medicine and Rehabilitation in [place], [place] [address] [place] [address] Rod Collins M.D. [address] [place] [phone] Elana Winters P, P.T. [address] [place] [phone] 03/24/2024 12:45 PM CDT Clinical Support Department of Physical Medicine and Rehabilitation in [place], [place] [address] [place] [address] Rod Collins M.D. [address] [place] [phone] Elana Winters P, P.T. [facility] [place] [address] 03/31/2024 12:45 PM CDT Clinical Support Department of Physical Medicine and Rehabilitation in [place], [place] [address] [place] [address] Rod Collins M.D. [address] [place] [phone] Elana Winters P, P.T. [address] [place] [phone] 04/07/2024 12:45 PM CDT Clinical Support Department of Physical Medicine and Rehabilitation in [place], [place] [address] [place] [address] Rod Collins M.D. [address] [place] [phone] Elana Winters P, P.T. [address] [place] [phone] 04/14/2024 12:45 PM CDT Clinical Support Department of Physical Medicine and Rehabilitation in [place], [place] [address] [place] [address] Rod Collins M.D. [address] [place] [phone] Elana Winters, P.T. [address] [place] [phone] 04/21/2024 12:45 PM CDT Clinical Support Department of Physical Medicine and Rehabilitation in [place], [place] [address] [place] [address] Rod Collins M.D. [address] [place] [phone] Elana Winters P, P.T. [address] [place] [address] 04/28/2024 12:45 PM CDT Clinical Support Department of Physical Medicine and Rehabilitation in [place], [place] [address] [place] [address] Rod Collins M.D. [address] [place] [address] Elana Winters P, P.[address]. [address] [place] [address] Medical Devices Implanted Type Area Deckhand Fishing Vessel Device Identifier Shelf Expiration Date Model / Serial / Lot Stnt Visi Pro Otw [id number] - [id number] Implanted:Qt y: 1 on 05/04/2019 by Tyson Liao M.D. at [facility] Biliary Stent N/A: Arterial Medtronic 09/24/2019 [id number] / / [id number] Description:SMA #2 Stnt Visi Pro Otw [id number] - [id number] Implanted:Qt y: 1 on 05/04/2019 by Tyson Liao M.D. at [facility] Biliary Stent Right: Arterial Medtronic 03/23/2021 [id number] / / [id number] Description:Celiac Artery #2 Stnt Icast Atrm Cov [id number] - [id number] - [id number] Implanted:Qt y: 1 on 05/04/2019 by Tyson Liao M.D. at [facility] Respiratory Stent Right: Arterial Atrium 02/18/2022 [id number] / [id number] / Description:Right Renal Emma ry Stnt Icast Atrm Cov [id number] - [id number] - [id number] Implanted:Qt y: 1 on 05/04/2019 by Tyson Liao M.D. at [facility] Respiratory Stent Right: Arterial Atrium 02/06/2022 [id number] / [id number] / Description:Left renal arter y Stnt Icast Atrm Cov [id number] - [id number] - [id number] Implanted:Qt y: 1 on 05/04/2019 by Tyson Liao M.D. at [facility] Respiratory Stent Right: Arterial Atrium 03/27/2022 [id number] / [id number] / Description:SMA Stnt Icast Atrm Cov [id number] - [id number] - [id number] Implanted:Qt y: 1 on 05/04/2019 by Tyson Liao M.D. at [facility] Respiratory Stent Right: Arterial Atrium 01/29/2022 [id number] / [id number] / Description:Left renal arter y Stnt Icast Atrm Cov [id number] - [id number] - [id number] Implanted:Qt y: 1 on 05/04/2019 by Tyson Liao M.D. at [facility] Respiratory Stent Right: Arterial Atrium 03/27/2022 [id number] / [id number] / Description:Celiac Artery Xyl-Pmenmy-K enestrated-P natali Stent Graft Implanted:Qt y: 1 on 05/04/2019 by Tyson Liao M.D. at [facility] Stent Other N/A: Aorta [employer] [id number] 03/23/2022 [id number] / / [id number] Aaa-Bifurcat ed-Graft Implanted:Qt y: 1 on 05/04/2019 by Tyson Liao M.D. at [facility] Stent Other N/A: Aorta [employer] [id number] 03/17/2022 [id number] / / [id number] Grft Znt Ilc Ext [id number] - [id number] Implanted:Qt y: 1 on 05/04/2019 by Tyson Liao M.D. at [facility] Vascular Graft Left: Arterial [employer] 12/02/2021 [id number] / / [id number] Description:Left Iliac Stnt Innova Otw [id number] - [id number] Implanted:Qt y: 1 on 05/04/2019 by Tyson Liao M.D. at [facility] Vascular Stent Right: Arterial [employer] 11/03/2020 [id number] / / [id number] Description:Right Renal Emma ry Procedures Procedure Name Priority Date/Time Associated Diagnosis Comments ARTERIAL BLOOD GAS - PULMONARY CLINIC Routine 03/04/2024 2:42 PM CDT Chronic Obstructive Pulmonary Disease (HCC) TISSUE TRANSGLUTAMINASE (TTG) AB, IGA, S Routine 01/28/2024 10:16 AM CDT HI T4 FREE Routine 01/28/2024 10:16 AM CDT THYROPEROXIDASE (TPO) ABS, S Routine 10:16 AM CDT QUANTITATIVE M-PROTEIN STUDY, S Routine 01/28/2024 10:16 AM CDT Pain Back Fracture Vertebra Compression Thoracic Closed Initial (HCC) CELIAC DISEASE SEROLOGY CASCADE, S Routine 01/28/2024 10:16 AM CDT Pain Back Fracture Vertebra Compression Thoracic Closed Initial (HCC) CORTISOL, S Routine 01/28/2024 10:16 AM CDT Pain Back Fracture Vertebra Compression Thoracic Closed Initial (HCC) RHEUMATOID FACTOR, S/P Routine 10:16 AM CDT Pain Back Fracture Vertebra Compression Thoracic Closed Initial (HCC) CREATINE KINASE (CK), S Routine 01/28/20 24 10:16 AM CDT Pain Back Fracture Vertebra Compression Thoracic Closed Initial (HCC) THYROID FUNCTION CASCADE, S Routine 01/06 10:16 AM CDT Pain Back Fracture Vertebra Compression Thoracic Closed Initial (HCC) C-REACTIVE PROTEIN (CRP), S/P Routine 01/28/2024 10:16 AM CDT Pain Back Fracture Vertebra Compression Thoracic Closed Initial (HCC) SEDIMENTATION RATE, B Routine 01/28/2024 10:16 AM CDT Pain Back Fracture Vertebra Compression Thoracic Closed Initial (HCC) DEHYDROEPIANDROSTERONE SULFATE (DHEA-S) LEVEL, S Routine 01/28/2024 10:16 AM CDT Pain Back Fracture Vertebra Compression Thoracic Closed Initial (HCC) FERRITIN, S Routine 01/28/2024 10:16 AM CDT Pain Back Fracture Vertebra Compression Thoracic Closed Initial (HCC) CONNECTIVE TISSUE DISEASE CASCADE, HAZEL, S Routine 01/28/2024 10:16 AM CDT Pain Back Fracture Vertebra Compression Thoracic Closed Initial (HCC) COMPREHENSIVE METABOLIC PANEL, S/P Routine 01/28/2024 10:16 AM CDT Pain Back Fracture Vertebra Compression Thoracic Closed Initial (HCC) CBC WITH DIFFERENTIAL, B Routine 024 10:16 AM CDT Pain Back Fracture Vertebra Compression Thoracic Closed Initial (HCC) 25-HYDROXYVITAMIN D2 AND D3, S Routine 01/28/2024 10:16 AM CDT Pain Back Fracture Vertebra Compression Thoracic Closed Initial (HCC) IRON AND TOT IRON-BINDING CAPACITY, S/P Routine 01/15/2024 11:41 AM CDT Anemia Iron Deficiency FERRITIN, S Routine 01/15/2024 11:41 AM CDT Anemia Iron Deficiency CBC WITH DIFFERENTIAL, B Routine 024 11:41 AM CDT Anemia Iron Deficiency NT-PRO B-TYPE NATRIURETIC PEPTIDE (BNP), S Routine 01/15/2024 11:41 AM CDT Dyspnea Multifactorial CREATININE WITH EGFR, S/P Routine 2023 11:41 AM CDT Dyspnea Multifactorial POTASSIUM, S/P Routine 01/15/2024 11:41 AM CDT Dyspnea Multifactorial SODIUM, S/P Routine 01/15/2024 11:41 AM CDT Dyspnea Multifactorial (TTE) 2D ECHO DOPPLER COLOR Routine 12/06 2:07 PM CDT Dilated Aortic Root (HCC) Dyspnea Multifactorial BI BREAST SCREENING BILATERAL WITH TOMOSYNTHESIS Routine 09/16/2019 10:[address] CHEST WITHOUT IV CONTRAST Routine 08/2019 10:02 AM INTERTYPE OPERATOR from Last 3 Months or Most Recently Relevant to Health Maintenance Results * (ABNORMAL) Arterial Blood Gas - Pulmonary Clinic (03/04/2024 2:42 PM CDT) Sample Site Right Radial Single Stick 03/04/2024 3:17 PM CDT DTL Patient Position Sit 03/04/20 3:17 PM CDT DTL Patient Activity Rest 03/04/20 3:17 PM CDT DTL pH Arterial 7.41 7.35 - 7.45 03/04/2024 3:17 PM CDT DTL pCO2 Arterial 55.9(H) 35.0 - 45.0 mm Hg 03/04/2024 3:17 PM CDT DTL pO2 Arterial 68.4(L) 80.0 - 100.0 mm Hg 03/04/2024 3:17 PM CDT DTL Total Hemoglobin 12.0 11.6 - 15.0 g/dL 03/04/2024 3:17 PM CDT DTL O2 Saturation 91.4(L) 94.0 - 98.0 % 03/04/2024 3:17 PM CDT DTL Carboxyhemoglobin 3.4(H) 0.0 - 1.9 % 03/04/2024 3:17 PM CDT DTL Methemoglobin 0.5 0.0 - 0.9 % 03/04/2024 3:17 PM CDT DTL Bicarbonate Conc 35.5(H) 22.0 - 26.0 mmol/L 03/04/2024 3:17 PM CDT DTL Base Excess 10.9(H) 0.0 - 2.0 mmol/L 03/04/2024 3:17 PM CDT DTL Edwards 0.00 03/04/2024 3:17 PM CDT DTL Activity Time 13.0 min 03/04/2024 3:17 PM CDT DTL Subcutaneous Lidocaine 0.0 mL 03/04/2024 3:17 PM CDT DTL O2 Devices NC 03/04/2024 3:17 PM CDT DTL O2 Flow 1.0 L/min 03/04/2024 3:17 PM CDT DTL Blood (Blood, Arterial) 03/04/2024 2:42 PM CDT 03/04/2024 3:09 PM CDT Arjun Umana M.D. LAB BLOOD ADD-ON [facility] [address] [place] [address], [facility] [address] [place] [address] * Quantitative M-protein Study (01/28/2024 10:16 AM CDT) Immunoglobulin A (IgA), S 304 61 - 356 mg/dL 01/28/2024 2:56 PM CDT [facility] Immunoglobulin M (IgM), S 70 37 - 286 mg/dL 01/28/2024 2:57 PM CDT [facility] Immunoglobulin G (IgG), S 1140 767 - 1590 mg/dL 01/28/2024 2:56 PM CDT [facility] Therapeutic Antibody Administered? Unspecified 01/28/2024 1:55 PM CDT [facility] Flag, M-protein Isotype Negative Negative 01/29/2024 12:53 PM CDT [facility] QMPTS Interpretation No monoclonal protein detected. 01/29/2024 12:53 PM CDT [facility] Comment: ----ADDITIONAL INFORMATION---- The submitted sample was assayed by five separate immunopurifications for IgG, IgA, IgM, kappa and lambda. ??The result reflects the findings of either no monoclonal protein detected or those monoclonal immunoglobulins that were detected. This test was developed and its performance characteristics determined by [facility] in a manner consistent with CLIA requirements. This test has not been cleared or approved by the U.S. Food and Drug Administration. Blood (Blood, Venous) 01/28/2024 10:16 AM CDT 01/28/2024 2:02 PM CDT Narrative [facility] - 01/29/2024 12:53 PM CDT Specimen Information: Specimen ID: [id number] Specimen Type: Blood Specimen Collection Start Date: 01/28/2024 10:16 AM Specimen Received Date: 01/28/2024 ??2:02 PM Specimen ID: [id number] Specimen Type: Blood Specimen Collection Start Date: 01/28/2024 10:16 AM Specimen Received Date: 01/28/2024 ??1:55 PM Rod Perales M.D. LAB BLOOD ADD-ON [facility] [address] [place] [address] [facility] [address] [place] [address] [facility] [address] [place] [address] [place] [address] * T4 (Thyroxine), Free, Serum (01/28/2024 10:16 AM CDT) T4 (Thyroxine), Free, S 1.0 0.9 - 1.7 ng/dL 01/28/2024 11:30 AM CDT DTL Blood 01/28/2024 10:1 6 AM CDT 01/28/2024 10:42 AM CDT Rod Perales M.D. LAB BLOOD ADD-ON Performing Organization Address City/[facility]/ZIP Co de Phone Number [facility] [address] [place] [address] * (ABNORMAL) Thyroid Function [place] (01/28/2024 10:16 AM CDT) Pathologist [facility] TSH, Sensitive 4.4(H) 0.3 - 4.2 mIU/L 01/28/2024 11:09 AM CDT DT Blood (Blood, Venous) 01/28/2024 10:16 AM CDT 01/28/2024 10:42 AM CDT Rod Perales M.D. LAB BLOOD ADD-ON Performing Organization Address City/[facility] Co de Phone Number [facility] [address] [place] [address] * Celiac Disease Serology [place] (01/28/2024 10:16 AM CDT) Pathologist [facility] Immunoglobulin A (IgA), S 304 61 - 356 mg/dL 01/28/2024 2:56 PM CDT [facility] Celiac Disease Interpretation See Comment: Negative serology. Celiac disease unlikely. However, approximately 10% of patients with celiac disease are seronegative. Also, patients who are already adhering to a gluten-free diet may be seronegative. If celiac disease is highly clinically suspected, consider HLA-DQ typing. 01/28/2024 9:15 PM CDT [facility] Blood (Blood, Venous) 01/28/2024 10:16 AM CDT 01/28/2024 2:02 PM CDT Narrative [facility] - 01/28/2024 9:15 PM CDT Specimen Information: Specimen ID: [id number] Specimen Type: Blood Specimen Collection Start Date: 01/28/2024 10:16 AM Specimen Received Date: 01/28/2024 ??2:02 PM Specimen ID: [id number] Specimen Type: Blood Specimen Collection Start Date: 01/28/2024 10:16 AM Specimen Received Date: 01/28/2024 ??2:00 PM Rod Perales M.D. LAB BLOOD ADD-ON [facility] [address] [place] [address] [facility] [address] [place] [address] [facility] [address] [place] [address] [place] [address] * Thyroperoxidase (TPO) Antibodies (01/28/2024 10:16 AM CDT) Thyroperoxidase Ab, S 18.5 <34.0 IU/mL 01/28/2024 11:30 AM CDT [facility] Blood 01/28/2024 10:1 6 AM CDT 01/28/2024 10:42 AM CDT Rod Perales M.D. LAB BLOOD ADD-ON Performing Organization Address City/[facility]/ZIP Co de Phone Number [facility] [address] [place] [address], [facility] [address] [place] [address] * tTG (Tissue Transglutaminase), Antibody, IgA (01/28/2024 10:16 AM CDT) Tissue Transglutaminase Ab, IgA, S <1.2 <4.0 (Negative ) U/mL 01/28/2024 6:42 PM CDT [facility] Blood 01/28/2024 10:1 6 AM CDT 01/28/2024 3:19 PM CDT Rod Perales M.D. LAB BLOOD ADD-ON [facility] [address] [place] [address] [facility] [address] [place] [address] * Connective Tissue Diseases [place] (01/28/2024 10:16 AM CDT) Pathologist [facility] Antinuclear Ab, S 0.1 <=1.0 (Negative ) U 01/28/2024 7:56 PM CDT [facility] Comment: ----ADDITIONAL INFORMATION---- Method: Enzyme-linked immunoassay using HEp-2 nuclear extract supplemented with purified antigens. Cyclic Citrullinated Peptide Ab, S <15.6 <20.0 (Negative ) U 01/28/2024 6:40 PM CDT [facility] Interpretation SEE COMMENT 7:56 PM CDT [facility] Comment: Tests for antibodies to dsDNA and DERIC antigens are not performed automatically unless the TERRI result is > or = 3.0 U. ??Studies performed at [facility] indicate that positive TERRI results <3.0 U are rarely accompanied by positive second order tests. Blood (Blood, Venous) 01/28/2024 10:16 AM CDT 01/28/2024 1:59 PM CDT Rod Perales M.D. LAB BLOOD ADD-ON [facility] [address] [place] [address] [place] [id number] [place] [address] * (ABNORMAL) 25-Hydroxyvitamin D2 and D3 (01/28/2024 10:16 AM CDT) [facility] 25-Hydroxy D2 <4.0 ng/mL 01/30/2024 9:01 AM CDT [facility] 25-Hydroxy D3 18 ng/mL 01/30/2024 9:01 AM CDT [facility] 25-Hydroxy D Total 18(L) ng/mL 2023 9:01 AM CDT [facility] Comment: Interpretation: 10-19 ng/mL (mild to moderate deficiency) ----REFERENCE VALUE---- 25-HYDROXY D TOTAL (D2+D3) Optimum levels in the healthy population are 20-50. ----ADDITIONAL INFORMATION---- This test was developed and its performance characteristics determined by [facility] in a manner consistent with CLIA requirements. This test has not been cleared or approved by the U.S. Food and Drug Administration. Blood (Blood, Venous) 01/28/2024 10:16 AM CDT 01/28/2024 1:32 PM CDT Rod Perales M.D. LAB BLOOD ADD-ON [facility] [address] [place] [address] [facility] [address] [place] [address] [place] [address] * Dehydroepiandrosterone Sulfate (DHEA-S) (01/28/2024 10:16 AM CDT) Dehydroepiandrosterone Sulfate, S 72 5.3 - 124 mcg/dL 01/28/2024 3:53 PM CDT [facility] Blood (Blood, Venous) 01/28/2024 10:16 AM CDT 01/28/2024 2:58 PM CDT Rod Perales M.D. LAB BLOOD ADD-ON [facility] [address] [place] [address] [facility] [address] [place] [address] * Sedimentation Rate (01/28/2024 10:16 AM CDT) Sedimentation Rate, B 8 3 - 28 mm/h 01/28/2024 11:48 AM CDT [facility] Blood (Blood, Venous) 01/28/2024 10:16 AM CDT 01/28/2024 10:30 AM CDT Rod Perales M.D. LAB BLOOD ADD-ON [facility] [address] [place], [place] [address] DTL [facility] [address] [place] [address] * (ABNORMAL) CBC with Differential, Blood (01/28/2024 10:16 AM CDT) Only the most recent of2 resultswithin the time period is included. Hemoglobin 12.5 11.6 - 15.0 g/dL 01/28/2024 10:57 AM CDT DTL Hematocrit 39.5 35.5 - 44.9 % 01/28/2024 10:57 AM CDT DTL Erythrocytes 4.20 3.92 - 5.13 x10(12)/L 01/28/2024 10:57 AM CDT DTL MCV 94.0 78.2 - 97.9 fL 01/28/2024 10:57 AM CDT DTL RBC Distrib Width 16.5(H) 12.2 - 16.1 % 01/28/2024 10:57 AM CDT DTL Platelet Count 210 157 - 371 x10(9)/L 01/28/2024 10:57 AM CDT DTL Leukocytes 6.0 3.4 - 9.6 x10(9)/L 01/28/2024 10:57 AM CDT DTL Neutrophils 3.94 1.56 - 6.45 x10(9)/L 01/28/2024 10:57 AM CDT DHPM Lymphocytes 1.22 0.95 - 3.07 x10(9)/L 01/28/2024 10:57 AM CDT DTL Monocytes 0.68 0.26 - 0.81 x10(9)/L 01/28/2024 10:57 AM CDT DTL Eosinophils 0.15 0.03 - 0.48 x10(9)/L 01/28/2024 10:57 AM CDT DTL Basophils 0.05 0.01 - 0.08 x10(9)/L 01/28/2024 10:57 AM CDT DTL Blood (Blood, Venous) 01/28/2024 10:16 AM CDT 01/28/2024 10:30 AM CDT Rod Perales M.D. LAB BLOOD ADD-ON [facility] [address] [place] [address], [place] [facility] [address] [place] [address] [facility] [address] [place] [address] * Rheumatoid Factor (01/28/2024 10:16 AM CDT) Rheumatoid Factor, S <15 <15 IU/mL 01/28/2024 3:40 PM CDT [facility] Blood (Blood, Venous) 01/28/2024 10:16 AM CDT 01/28/2024 3:01 PM CDT Rod Perales M.D. LAB BLOOD ADD-ON [facility] [address] [place] [address] [facility] [address] [place] [address] * CRP (C-Reactive Protein) (01/28/2024 10:16 AM CDT) Pathologist [facility] C-Reactive Protein (CRP), S <3.0 <5.0 mg/L 01/28/2024 11:09 AM CDT DT Blood (Blood, Venous) 01/28/2024 10:16 AM CDT 01/28/2024 10:42 AM CDT Rod Perales M.D. LAB BLOOD ADD-ON [facility] [address] [place] [address], [place] [facility] [address] [place] [address] * Ferritin (01/28/2024 10:16 AM CDT) Only the most recent of2 resultswithin the time period is included. Ferritin, S 262 11 - 328 mcg/L 01/28/2024 11:09 AM CDT DT Blood (Blood, Venous) 01/28/2024 10:16 AM CDT 01/28/2024 10:42 AM CDT Rod Perales M.D. LAB BLOOD ADD-ON [facility] [address] [place] [address] * CK (Creatine Kinase) (01/28/2024 10:16 AM CDT) Creatine Kinase (CK), S 116 26 - 192 U/L 01/28/2024 11:09 AM CDT DT Blood (Blood, Venous) 01/28/2024 10:16 AM CDT 01/28/2024 10:42 AM CDT Rod Perales M.D. LAB BLOOD ADD-ON Performing Organization Address [facility] Co de Phone Number [facility] [address] [place] [address] * Cortisol (01/28/2024 10:16 AM CDT) Cortisol, Random, S 12 mcg/dL 01/28/2024 11:09 AM CDT [facility] Comment: ----REFERENCE VALUE---- AM ([phone]): 4.8-20 PM ([phone]): 2.5-12 Blood (Blood, Venous) 01/28/2024 10:16 AM CDT 01/28/2024 10:42 AM CDT Rod Perales M.D. LAB BLOOD ADD-ON Performing Organization Address City/[facility]/ZIP Co de Phone Number [facility] [address] [place] [address] * (ABNORMAL) Comprehensive Metabolic Panel (01/28/2024 10:16 AM CDT) Potassium, S 4.4 3.6 - 5.2 mmol/L 01/28/2024 11:09 AM CDT DTL Sodium, S 139 135 - 145 mmol/L 01/28/2024 11:09 AM CDT DTL Chloride, S 98 98 - 107 mmol/L 01/28/2024 11:09 AM CDT DTL Bicarbonate, S 34(H) 22 - 29 mmol/L 01/28/2024 11:09 AM CDT DTL Anion Gap 7 7 - 15 01/28/2024 11:09 AM CDT DTL BUN (Blood Urea Nitrogen), S 19 6 - 21 mg/dL 01/28/2024 11:09 AM CDT DTL Creatinine 0.83 0.59 - 1.04 mg/dL 01/28/2024 11:09 AM CDT DTL Estimated GFR (eGFR) 72 >=60 mL/min/BS A 01/28/2024 11:09 AM CDT DTL Comment: Estimated GFR calculated using the 2020 CKD_EPI creatinine equation. Calcium, Total, S 9.5 8.8 - 10.2 mg/dL 01/28/2024 11:09 AM CDT DTL Glucose, S 90 70 - 140 mg/dL 01/28/2024 11:09 AM CDT DTL Protein, Total, S 6.8 6.3 - 7.9 g/dL 01/28/2024 11:09 AM CDT DTL Albumin, S 4.5 3.5 - 5.0 g/dL 01/28/2024 11:09 AM CDT DTL Aspartate Aminotransferase (AST), S 25 8 - 43 U/L 01/28/2024 11:09 AM CDT DTL Alkaline Phosphatase, S 84 35 - 104 U/L 01/28/2024 11:09 AM CDT DTL Alanine Aminotransferase (ALT), S 22 7 - 45 U/L 01/28/2024 11:09 AM CDT DTL Bilirubin, Total, S 0.4 0.0 - 1.2 mg/dL 01/28/2024 11:09 AM CDT DTL Blood (Blood, Venous) 01/28/2024 10:16 AM CDT 01/28/2024 10:42 AM CDT Rod Perales M.D. LAB BLOOD ADD-ON [facility] [address] [place] [address], [place] [facility] [facility] [address] [place] [address] * NT-Pro B-Type Natriuretic Peptide (BNP) (01/15/2024 11:41 AM CDT) NT-Pro BNP 507 <=540 pg/mL 01/15/2024 2:26 PM CDT [facility] Comment: NT-proBNP values less than 300 pg/mL have a 99% negative predictive value for excluding acute congestive heart failure. A cutoff of 1200 pg/mL for patients with an eGFR<60 yields a diagnostic sensitivity and specificity of 89% and 72% for acute congestive heart failure. A diagnostic NT-proBNP cutoff of 1800 pg/mL has been suggested in adults over 75 years of age in the absence of renal failure. Blood (Blood, Venous) 01/15/2024 11:41 AM CDT 01/15/2024 1:31 PM CDT Vitor Calle M.D. LAB BLOOD ADD-ON [facility] [address] [place] [address], [place] [facility] [place] [address] [place] [address] * (ABNORMAL) Iron and Total Iron-Binding Capacity (01/15/2024 11:41 AM CDT) Iron 45 35 - 145 mcg/dL 01/15/2024 3:26 PM CDT [facility] Total Iron Binding Capacity 224(L) 250 - 400 mcg/dL 01/15/2024 3:26 PM CDT [facility] Percent Saturation 20 14 - 50 % 01/15/2024 3:26 PM CDT [facility] Blood (Blood, Venous) 01/15/2024 11:41 AM CDT 01/15/2024 3:07 PM CDT Tony Schwartz P.A.-C. LAB BLOOD ADD-ON [facility] [address] [place] [address], [facility] [address] [place] [address] * Sodium (01/15/2024 11:41 AM CDT) Sodium, P 139 135 - 145 mmol/L 01/15/2024 2:15 PM CDT [facility] Blood (Blood, Venous) 01/15/2024 11:41 AM CDT 01/15/2024 1:31 PM CDT Vitor Calle M.D. LAB BLOOD ADD-ON Performing Organization Address City/[facility]/ZIP Co de Phone Number [facility] [address] [place] [address], [place] [facility] [place] [address] [place] [address] * Potassium (01/15/2024 11:41 AM CDT) Potassium, P 4.5 3.6 - 5.2 mmol/L 01/15/2024 2:15 PM CDT [facility] Blood (Blood, Venous) 01/15/2024 11:41 AM CDT 01/15/2024 1:31 PM CDT Vitor Calle M.D. LAB BLOOD ADD-ON [facility] [address] [place] [address], [place] [facility] [place] [address] [place] [address] * Creatinine with Estimated GFR (01/15/2024 11:41 AM CDT) Creatinine 0.72 0.59 - 1.04 mg/dL 01/15/2024 2:15 PM CDT [facility] Estimated GFR (eGFR) 86 >=60 mL/min/BSA 01/15/2024 2:15 PM CDT [facility] Comment: Estimated GFR calculated using the 2020 CKD_EPI creatinine equation. Blood (Blood, Venous) 01/15/2024 11:41 AM CDT 01/15/2024 1:31 PM CDT Vitor Calle M.D. LAB BLOOD ADD-ON [facility] [address] [place] [address], [place] [facility] [place] [address] [place] [address] * (TTE) 2D ECHO DOPPLER COLOR (01/01/2024 2:07 PM CDT) Ejection Fraction 69 MC CV EIMS Sinus of Valsalva 37 MC CV EIMS Mid-Ascending Aorta 42 MC CV EIMS LV Mass Index 76 MC CV EIMS LV End-Diastolic Diameter 36 MC CV EIMS LV End-Systolic Diameter 21 MC CV EIMS MV E Velocity 0.8 MC CV EIMS MV A Velocity 1.2 MC CV EIMS MV E/A 0.67 MC CV EIMS MV e' Velocity Medial 0.04 MC CV EIMS MV e' Velocity Lateral 0.07 MC CV EIMS MV E/e' Medial 20 MC CV EIMS MV E/e' Lateral 11.4 MC CV EIMS Left ventricular stroke volume index 72 MC CV EIMS Cardiac Output 7.69 MC CV EIMS Cardiac Index 5.41 MC CV EIMS LV Interventricular Septal Wall Thickness 12 MC CV EIMS LV Posterior Wall Thickness 8 MC CV EIMS LV Relative Wall Thickness 44 MC CV EIMS RV 4-Chamber Basal Diameter 41 MC CV EIMS RV 4-Chamber Mid Diameter 36 MC CV EIMS RV 4-Chamber Length 69 MC CV EIMS TAPSE 18 MC CV EIMS Tricuspid Annular S? 0.12 MC CV EIMS TR Vmax 3.63 MC CV EIMS RA Pressure 5 MC CV EIMS RV Systolic Pressure 58 MC CV EIMS AV mean gradient 8 MC CV EIMS Aortic valve area 2.87 MC CV EIMS Aortic Valve Dimensionless Index 0.83 MC CV EIMS LA Volume Index 46 MC CV EIMS Aortic Valve Systolic Peak Velocity 1.8 MC CV EIMS Anatomical Region Laterality Modality Echocardiography 01/01/2024 1:15 PM CDT Impressions 01/01/2024 3:14 PM CDT Transthoracic outreach echo interpretation. LEFT VENTRICLE:Normal left ventricular chamber size. Abnormal left ventricular geometry with ??concentric remodeling (increased wall thickness to cavity ratio). Calculated 2-D linear left ventricular ejection fraction 69%. No regional wall motion abnormalities. Grade 1a/3 left ventricular diastolic dysfunction, consistent with mildly elevated left ventricular filling pressure. RIGHT VENTRICLE:Mildly enlarged right ventricular chamber size. Mildly reduced right ventricular systolic function (at the apex). Estimated right ventricular systolic pressure 58 mmHg (right atrial pressure of 5 mmHg). ATRIA:Moderately enlarged left atrial size. Left atrial volume index 46 ml/m2. Enlarged right atrial size by visual estimate. CARDIAC VALVES:Trileaflet aortic valve. Thickened aortic valve. No aortic valve regurgitation. Calcified mitral annulus. Thickened mitral valve. Mild mitral valve regurgitation. Normal pulmonary valve. Trivial pulmonary valve regurgitation. Normal tricuspid valve. Mild tricuspid valve regurgitation. OTHER ECHO FINDINGS:Normal inferior vena cava size with normal inspiratory collapse (>50%). Normal sinus of Valsalva diameter of 37 mm. Enlarged mid ascending aorta diameter of 42 mm. Upper limit of normal of the mid ascending aorta, for age, sex and BSA is 37 mm. Abdominal aorta incompletely visualized. Infrarenal abdominal aorta ectasia. Normal abdominal aorta Doppler flow pattern. Lipomatous atrial septum. No atrial level shunt by color flow imaging. No intracardiac mass or thrombus, but the left atrial appendage cannot be visualized adequately with transthoracic echo to exclude thrombus in this location. No ??pericardial effusion. For the complete report, see the Order-Level Documents. Narrative 01/01/2024 3:14 PM CDT For the complete report, see the Order-Level Documents. Hemodynamics Heart Rate: 75 BPM Blood Pressure: 110 / 60 mmHg ECG: Sinus rhythm Final Impressions 1. Transthoracic outreach echo interpretation. 2. Mildly enlarged right ventricular chamber size, mildly reduced systolic function (particularly at the apex), estimated right ventricular systolic pressure 58 mmHg (right atrial pressure of 5 mmHg). 3. Enlarged mid ascending aorta diameter of 42 mm, upper limit of normal for age, sex and BSA is 37 mm . ??Normal sinus of Valsalva diameter. ??Trileaflet aortic valve with no functional abnormalities. 4. Normal left ventricular chamber size, no regional wall motion abnormalities, calculated 2-D linear ejection fraction 69% (hyperdynamic systolic function; estimated ejection fraction 70-75%). 5. Trivial left ventricular mid cavity obstruction (peak gradient 11 mmHg at rest; increased to 20 mmHg with Valsalva). 6. Abnormal left ventricular geometry with ??concentric remodeling (increased wall thickness to cavity ratio), grade 1 a/3 diastolic dysfunction, consistent with mildly elevated filling pressure (mitral annular calcification may decrease the accuracy of this assessment). 7. No hemodynamically significant valvular heart disease. 8. No ??pericardial effusion. 9. 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 ??Known history of abdominal aortic aneurysm, status post EVAR (05/04/2019). Correlation with dedicated imaging recommended (status post CT of the abdomen 05/2023). 10. Compared to the report of 10/25/2021 the following changes have occurred: increased left ventricular filling pressure suspected in the current study. ??Side by side comparison of images performed. Procedure Note Vitor Calle M.D. - 01/01/2024 For the complete report, see the Order-Level Documents. Hemodynamics Heart Rate: 75 BPM Blood Pressure: 110 / 60 mmHg ECG: Sinus rhythm Final Impressions 1. Transthoracic outreach echo interpretation. 2. Mildly enlarged right ventricular chamber size, mildly reduced systolicfunction (particularly at the apex), estimated right ventricular systolicpressure 58 mmHg (right atrial pressure of 5 mmHg). 3. Enlarged mid ascending aorta diameter of 42 mm, upper limit of normalfor age, sex and BSA is 37 mm . Normal sinus of Valsalva diameter.Trileaflet aortic valve with no functional abnormalities. 4. Normal left ventricular chamber size, no regional wall motionabnormalities, calculated 2-D linear ejection fraction 69% (hyperdynamicsystolic function; estimated ejection fraction 70-75%). 5. Trivial left ventricular mid cavity obstruction (peak gradient 11 mmHgat rest; increased to 20 mmHg with Valsalva). 6. Abnormal left ventricular geometry with concentric remodeling(increased wall thickness to cavity ratio), grade 1 a/3 diastolicdysfunction, consistent with mildly elevated filling pressure (mitralannular calcification may decrease the accuracy of this assessment). 7. No hemodynamically significant valvular heart disease. 8. No pericardial effusion. 9. 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 Known history of abdominalaortic aneurysm, status post EVAR (05/04/2019). Correlation with dedicatedimaging recommended (status post CT of the abdomen 05/2023). 10. Compared to the report of 10/25/2021 the following changes haveoccurred: increased left ventricular filling pressure suspected in thecurrent study. Side by side comparison of images performed. Findings Transthoracic outreach echo interpretation. LEFT VENTRICLE:Normal left ventricular chamber size. Abnormal leftventricular geometry with concentric remodeling (increased wall thicknessto cavity ratio). Calculated 2-D linear left ventricular ejection [id number]%. No regional wall motion abnormalities. Grade 1a/3 left ventriculardiastolic dysfunction, consistent with mildly elevated left ventricularfilling pressure. RIGHT VENTRICLE:Mildly enlarged right ventricular chamber size. Mildlyreduced right ventricular systolic function (at the apex). Estimated rightventricular systolic pressure 58 mmHg (right atrial pressure of 5 mmHg). ATRIA:Moderately enlarged left atrial size. Left atrial volume index 46ml/m2. Enlarged right atrial size by visual estimate. CARDIAC VALVES:Trileaflet aortic valve. Thickened aortic valve. No aorticvalve regurgitation. Calcified mitral annulus. Thickened mitral valve.Mild mitral valve regurgitation. Normal pulmonary valve. Trivial pulmonaryvalve regurgitation. Normal tricuspid valve. Mild tricuspid valveregurgitation. OTHER ECHO FINDINGS:Normal inferior vena cava size with normal inspiratorycollapse (>50%). Normal sinus of Valsalva diameter of 37 mm. Enlarged midascending aorta diameter of 42 mm. Upper limit of normal of the midascending aorta, for age, sex and BSA is 37 mm. Abdominal aortaincompletely visualized. Infrarenal abdominal aorta ectasia. Normalabdominal aorta Doppler flow pattern. Lipomatous atrial septum. No atriallevel shunt by color flow imaging. No intracardiac mass or thrombus, butthe left atrial appendage cannot be visualized adequately withtransthoracic echo to exclude thrombus in this location. No pericardialeffusion. For the complete report, see the Order-Level Documents. Vitor Calle M.D. CV ECHO PROCEDURES from Last 3 Months or Most Recently Relevant to Health Maintenance Advance Directives For more information, please contact: [phone] Documents on File Type Date Recorded Patient Language Specialist Expl anation Advance Directives 02/06/2024 9:39 AM POLST /MOLST * DNR/DNI (Latest Code Status on File) Date Activated Date Inactivated Comments 01/08/2024 12:12 PM * Full Code Date Activated Date Inactivated Comments 05/04/2019 2:49 PM 05/05/2019 9:16 PM Question Answer Comments Full Code: Discussed * Full Code Date Activated Date Inactivated Comments 05/04/2019 7:25 AM 05/04/2019 2:49 PM Question Answer Comments Full Code: Discussed Care Teams Die Cleaner Relationship Specialty Start Date End Date Erinn Reina M.D. [address] [place] [id number] PCP - General Family Medicine 09/08/21
--- OUTSIDE RECORDS SUMMARY | 2024-03-06 09:46 | XMS_ITS | Encounter Summary ---
Author Organization [facility] Address [address] [place] [address] Care Team Providers Care Internal Medicine Doctor Name Role Phone Erinn Reina M.D. Primary Care Provider Encounter Details Date Type Department Care Team (Latest Contact Info) Description 02/04/2024 Clinical Communication Division of Endocrinology in [place], [place] [address] [place] [phone] Rod Collins M.D. [address] [place] [phone] Social History Tobacco Use Types Packs/Day Years [...] 03/05/2022 How often do you attend chur ch or sikh services? 1 to 4 times per year 03/05/2022 Do you belong to any clubs o r organizations such as mormon groups, unions, fraternal or athletic groups, or [...] Answer Date Recorded PHQ-2 Score 1 08/15/2022 [facility] Questionnaire Answer Date Recorded [...] your living situation today? I have a [facility] place to live 04/10/2023 Education Answer Date Recorded What is the highest level of school you have completed or the highest degree you have received? 12th grade 04/14/2019 Sex and Gender Information Value Date Recorded Sex Assigned at Female 10/24/2023 10:51 PM [employer] Gender Identity Female 02/10/2019 11:51 AM CDT Sexual Orientation Straight 02/10/2019 11 :51 AM CDT documented as of this encounter Plan of Treatment Upcoming Encounters Date Type Department Care Team (Late st Contact Info) Description 03/10/2024 9:15 AM CDT Clinical Support Department of Physical Medicine and Rehabilitation in [place], [place] [address] [place] [address] Rod Collins M.D. [address] [place] [address] Elana Winters, P.T. [address] [place] [phone] 03/17/2024 9:15 AM CDT Clinical Support Department of Physical Medicine and Rehabilitation in [place], [place] [address] [place] [address] Rod Collins M.D. [address] [place] [phone] Elana Winters P, P.T. [address] [facility] [address] 03/24/2024 12:45 PM CDT Clinical Support Department of Physical Medicine and Rehabilitation in [place], [place] [address] [place] [address] Rod Collins M.D. [address] [place] [phone] Elana Winters, P.T. [address] [place] [phone] 03/31/2024 12:45 PM CDT Clinical Support Department of Physical Medicine and Rehabilitation in [place], [place] [address] [place] [address] Rod Collins M.D. [address] [place] [phone] Elana Winters P, P.T. [address] [place] [phone] 04/07/2024 12:45 PM CDT Clinical Support Department of Physical Medicine and Rehabilitation in [place], [place] [address] [place] [address] Rod Collins M.D. [address] [place] [phone] Elana Winters, P.T. [address] [place] [phone] 04/14/2024 12:45 PM CDT Clinical Support Department of Physical Medicine and Rehabilitation in [place], [place] [address] [place] [address] Rod Collins M.D. [address] [place] [phone] Elana Winters P, P.T. [address] [place] [phone] 04/21/2024 12:45 PM CDT Clinical Support Department of Physical Medicine and Rehabilitation in [place], [place] [address] [place] [address] Rod Collins M.D. [address] [place] [phone] Elana Winters P, P.T. [address] [place] [phone] 04/28/2024 12:45 PM CDT Clinical Support Department of Physical Medicine and Rehabilitation in [place], [place] [address] [place] [address] Rod Collins M.D. [address] [place] [phone] Elana Winters P, P.T. [address] [place] [phone] documented as of this encounter Visit Diagnoses Not on filedocumented in this encounter Additional Health Concerns Assessment Noted Time PHQ-9 Depression Total Score: 6 08/15/20 22 2:06 AM [employer] documented as of this encounter Care Teams Internal Medicine Doctor Relationship Specialty Start Date End Date Erinn Reina M.D. [address] [place] [address] [place] [address] PCP - General Family Medicine 09/08/21 documented as of this encounter
--- OUTSIDE RECORDS SUMMARY | 2024-03-06 09:46 | XMS_ITS | Encounter Summary ---
Author Organization [facility] Address [address] [place] [address] Care Team Providers Care Log Pond Worker Name Role Phone Erinn Reina M.D. Primary Care Provider Reason for Referral * Physical Therapy (Routine) - Authorized Specialty Diagnoses / Procedures Referred By Osorio guevara Referred To Contact Diagnoses Osteoporosis Pain Low Back Unspecified Pain Back Procedures PT Ongoing treatment Rod Collins M.D. [address] [place] [address] [facility] Region Referral ID Status Reason Start Date Expiration Date V isits Requested Visits Authorized [id number] Authorized 02/18/2024 02/17/2025 99 99 Reason for Visit * Physical Therapy (Routine) - Authorized Specialty Diagnoses / Procedures Referred By Osorio guevara Referred To Contact Diagnoses Osteoporosis Pain Low Back Unspecified Pain Back Procedures PT Evaluate and treat Rod Collins M.D. [address] [place] [address] [facility] Region Referral ID Status Reason Start Date Expiration Date V isits Requested Visits Authorized [id number] Authorized 02/05/2024 02/04/2025 99 99 Encounter Details Date Type Department Care Team (Latest Contact Info) Description 02/18/2024 10:45 AM CDT Comprehensive Visit Department of Physical Medicine and Rehabilitation in [place], [place] [address] [place] [phone] Rod Collins M.D. [address] [place] [address] Elana Winters, P.T. [address] [place] [phone] Pain Back (Primary Dx); Osteoporosis; Pain Low Back Unspecified Social History Tobacco Use Types Packs/Day Years [...] How often do you attend chur or church services? 1 to 4 times per year 03/05/2022 Do you belong to any clubs o r organizations such as sabianism groups, unions, fraternal or athletic groups, or [...] Answer Date Recorded PHQ-2 Score 1 08/15/2022 [facility]ational Stress Questionnaire Answer Date [...] Sex Assigned at Female 10/24/2023 10:51 PM [employer]NET [employer] SPECIAL[employer] Gender Identity Female 02/10/2019 11:51 AM CDT Sexual Orientation Straight 02/10/2019 11 :51 AM CDT documented as of this encounter Last Filed Vital Signs Vital Sign Reading Time Taken Comments Blood Pressure - - Pulse - - Temperature - - Respiratory Rate - - Oxygen Saturation 91% 02/18/2024 2:48 PM CDT Inhaled Oxygen Concentration - - Weight - - Height - - Body Mass Index - - documented in this encounter Consult Notes * Elana Winters, P.T. - 02/18/2024 10:45 AM CDT Physical Therapy Outpatient Evaluation/Treatment By co-signing this note, the provider certifies the therapy being provided to this patient is reasonable and necessary for the diagnosis or treatment of this patient. SUBJECTIVE Patient's Name: Marty Rivera Referring Provider: Rod Perales M.D. Visit Diagnosis: 1. Pain Back 2. Osteoporosis 3. Pain Low Back Unspecified Reason for Referral: Chronic Pain Exacerbation that occur throughout her back but most notably in her cervical and thoracic region. Patient also has history with lumbar and sacral symptoms. 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 OTHER CONVERTED SHX (SEE COMMENT) N/A 01/08/2002 >Colonoscopy with Biopsy SALPINGECTOMY SPINE SURGERY STENT GRAFT ENDOVASCULAR THORACOABDOMINAL AORTA N/A 05/04/2019 Procedure: STENT GRAFT ENDOVASCULAR THORACOABDOMINAL AORTA, JENNIFER [id number], Endovascular repair complex abdominal aortic aneurysm using patient-specific fenestrated branched stent graft, Proximal component, four fenestrations for Celiac, SMA, bilateral renal arteries, Distal bifucated universal device, left iliac limb extention, Prep both groins, Percutaneous approach.; Surgeon: Tyson Liao, STENT GRAFT RENAL AND/OR MESENTERIC BRANCH Bilateral 05/04/2019 Procedure: STENT GRAFT RENAL AND/OR MESENTERIC BRANCH.; Surgeon: Tyson Liao M.D.; Location: [facility] OR SUPRACERVICAL HYSTERECTOMY Precautions Other Precautions: COPD, osteoporotic, history of compression fracture in thoracic region, fragile skin/ integrity, osteopenia, Anemic Patient presents to outpatient physical therapy for evaluation of symptoms including: Thoracic pain Cervical pain Lumbar pain Headaches Overall patient reports status is worsening . Patient describes today as bad day History of Present Illness:Patient has long history with Fibromyalgia with episodes of exacerbationof symptoms. Patient has history of fractures in her thoracic region and has continued with have thoracic pain. With patient's complex medical history patient continues to be dependent on use of supplemental oxygen and continues to have progressing kyphosis. WIth patient's medical history her thoracic and cervical region continue to be her primary areas of symptoms with intermittent fibromyalgia exacerbations. Aggravating Factors: standing, walking, breathing, lifting, carrying items, repetitive motions Relieving Factors: Rest and repositioning Previous Treatments: Physical Therapy and Response to Treatment(s): Patient responds positively to physical therapy with short term relief, but also in efforts to maintain her overall flexibility of thoracic region, and slow progression of kyphosis and maintaining level of mobility including shoulder range of motion. Prior Function/Occupational Profile: Prior Mobility/Functional Transfers Level of [place]: Modified independent Gait Devices/Wheelchair Used: Manual wheelchair Gait Devices/Wheelchair Used Comments: In community for long events Prior Function/Occupational Profile Dominant Hand: Right Lives With: Alone Receives Help From: first aid attendant, Family ADL Assistance: Modified independent ADL Assistance Comments: Patient requires some assistance with dressing depending on the day and can make simple meals for herself. IADL/Homemaking Assistance: Required assistance IADL/Homemaking Assistance Comments: Patient has TRACTOR DRIVER perform tasks along with family Driving: Does not drive Driving Comments: TRACTOR DRIVER drives patient to appointments. Leisure Interests: Patient reports she is no longer able to perform knitting or painting Home Living Type of Home: Apartment Home Layout: One level Home Layout Comments: Entrance to doorway is grossly 75 feet and patient reports she can walk that far without assistance. Home Access: Level entry Bathroom Shower/Tub: Tub/shower unit Home Equipment Gait Devices Owned: Four-wheeled walker Wheelchair : Manual Family/Caregiver Present: No Additional Staff Present During Session: non Patient goals:Improve quality of life and maintain level of independence. Precautions Other Precautions: COPD, osteoporotic, history of compression fracture in thoracic region, fragile skin/ integrity, osteopenia, Anemic Fall Risk (65 and older) Fall in the last 12 months: Yes Did you have an injury with the fall?: No Are you fearful of falling?: Yes Fall Risk Comments: Patient has experienced falls within her apartment. OBJECTIVE REVIEW OF SYSTEMS osteoporosis (fracture risk) PHYSICAL EXAM Pain: Pain Assessment Pain Assessment: 0-10 Numeric Pain Intensity Scale Pain Score: 8 Pain Type: Chronic pain Pain Location: Shoulder Pain Orientation: Right Multiple Pain Sites: Three Pain 2 Pain Score 2: 7 Pain Location 2: Back Pain Orientation 2: Mid, Upper, Right, Left Pain Frequency 2: Constant/continuous Pain 3 Pain Score 3: 6 Pain Type 3: Chronic pain Pain Location 3: Neck Pain Orientation 3: Right, Left Pain Descriptors 3: Aching Pain Frequency 3: Constant/continuous Vital Signs SpO2: 91 % while on 2 L of oxygen at onset of treatment. Patient attempted room air, and was restarted on her oxygen at 85% and returned to 90-91% Outcome Measures: Patient presents with FOTO functional status score of 30 (MCII: 9 and MDC: 10) indicating general function at stage 2. The risk adjusted functional status score is 48. Patient is predicted to have 16points of functional status change in 12 visits over 55 days based on normative data. Observation/Inspection: Patient is a very pleasant female who presents today with her TRACTOR DRIVER present. Posture: In stance patient demonstrates a 55 degree forward flexed angle taken at T 5-7. Patient demonstrates significant forward kyphosis Ambulation/Balance: Patient is able to demonstrate short ambulation distances in clinic today but depends on use of manual wheelchair to access and exit building along with use throughout her appointment to and from waiting area to treatment rooms Palpation: Patient has increased symptoms throughout palpation of the thoracic lower cervical scapular medial superior and lateral borders with provocation of symptoms. Range of Motion: Left Right Shoulder Flexion 0-170 AROM: 124 ?? AROM: 125 ?? Shoulder Abduction 0-140 AROM: 120 ?? AROM: 120 ?? Shoulder Internal Rotation 0-70 AROM: T4 ?? AROM: T10 ?? Shoulder External Rotation 0-90 AROM: 55 ?? AROM: 55?? Cervical ROM: Symptoms provoked with active range of motion Right Left Rotation 32 ?? with symptoms 30 ?? Side bending patient starts laterally flexed to the right 10?? 21 ?? 22 ?? Flexion 30?? Extension 25?? Strength: Patient's upper extremities tested bilaterally 4+/5 at best Neuro Screen/Motor Control: Patient is able to articulate she is decreased sensation amongst right hand 3,4, and 5 with her distal phalanx and left hand 1, 2, 3, and 4 Joint Mobility: With increased kyphosis and forward head positioning patient demonstrates limitations with all joint mobility of the upper thoracic, cervical glenohumeral and scapular region with symptoms provoked throughout. Special Tests: Patient is unable to tolerate supine or side-lying position secondary to decreased body mass and breathing. Attendance policy was discussed with patient. Patient verbalized and agrees to no show policy expectations including discharge from therapy if attendance expectations are not met. Cognition Arousal/Alertness: Appropriate responses to stimuli Attention: Addressed, no concerns noted Initiation: No difficulty with initiation Orientation: Oriented X4 TREATMENT Treatment today consisted of: Manual Therapy: In seated position utilizing face cradle for stability soft tissue mobilization wasinitiated along midthoracic region and progress superiorly to the cervical region bilaterally alongsuperior aspect scapula as well as inferior border of the scapula as tolerated by the patient joint mobilizations performed superior to inferior and lateral to medial with stabilization of the glenohumeral region for optimal recovery of mobility. In addition [id number] glides attempted throughoutthe thoracic region and passive extension mobilization performed for recovery of posture grade 2 progressing up to a grade 3 oscillating as tolerated. Therapeutic Exercise: Passive range of motion of the right shoulder region and left shoulder regionperformed with flexion, abduction, external rotation as tolerated with resistance to external rotation bilaterally x5 Home Exercise Program/Education: [email or web address] Access Code: [email or web address] Assessment Clinical Impression: Patient presents to physical therapy with signs and symptoms consistent with chronic pain throughout her back including cervical, thoracic, lumbar and sacral region with history of fibromyalgia, thoracic fractures, cardiopulmonary and pulmonary issues contributing to increased thoracic kyphosis along with generalized weakness contributing to patient's overall pain. Impairments: Decreased range of motion of the cervical thoracic and bilateral shoulders, decreased strength throughout, decreased endurance and tolerance to activity Functional deficits: Decreased tolerance to ambulating requiring use of assistive device or self-limiting if distances too long, patient is unable to lift push or pull heavy objects, remains limited with activity tolerance overall including standing. Patient remains challenged secondary to weaknessto perform tasks such as cooking or cleaning due to decreased ability to hold onto items or open items such as cans or bottles. Patient currently limited with functional tasks such as bathing due to limited ability to perform tub transfers. Rehab Potential: Patient has Fair potential to achieve established physical therapy goals within the time frame outlined below, provided active participation in the physical therapy treatment plan and home program. Comorbid Conditions: Cerebrovascular accident, Cardiopulmonary disease Personal Factors: Age, Sedentary lifestyle, History of falls, Body habitus, Needs assistive device Clinical Presentation: Stable Examination elements: 4+ Clinical Decision Making: Low complexity clinical decision making Functional Goals and Timeframes: PT Outpatient Goals PT Goal #1: Patient is able to ambulate 150 feet independently with or without AD to maintain ability to be in the community PT Goal #1 Date: 05/08/24 PT Goal #2: Patient is able to maintain level of headache of 2/10 and decreased frequency from every day to 3 x / week to improve quality of living PT Goal #2 Date: 05/08/24 PT Goal #3: Patient is able to perform stand to sit transfer onto bathbench and sit to stand from bathbench independently to maintain ability to shower with SBA. PT Goal #3 Date: 05/08/24 PT Goal #4: Patient is able to put dishes such as plates away in her cupboard in her kitchen to demonstrate ability to maintain level of range of motion and strength while living independently. PT Goal #4 Date: 05/08/24 Plan Patient was educated regarding evaluative findings, diagnosis, prognosis, potential risks and benefits of rehabilitation interventions. A collaborative effort was used to establish goals and plan of care. The patient was informed of the right to make decisions regarding care, including refusal of examination or treatment or selection of services from another provider if desired. The treatment plan may be progressed or modified based upon the patient's response to treatment. Physical Therapy Attestation Statement: Patient agrees with the plan of care and goals. Treatment Plan: Plan: Plan of care initiated Start of Plan of Care: 02/18/2024 PT Next Certification Date: 05/08/24 Number of Visits:24 visits PT Duration: 30 visits PT Frequency: 1 x every 1-2 weeks Treatment interventions may include: Treatment/Interventions: Therapeutic exercise, Therapeutic functional activity, Neuromuscular re-education, Manual therapy, Self-care/home management Plan for next session: Continue to self-monitor and revisit range of motion exercises as well as stretching and strengthening for the thoracic and core region. Introduced lower extremity and core stabilization exercises patient is able to tolerate due to maintain level of quality of life and livingstatus. Continue to utilize manual therapy for pain management. Time Spent with Patient Evaluations PT Eval - Low Complexity: 32 min Therapeutic Interventions Manual Therapy (min): 25 min Therapeutic Exercise (min): 5 min Time Tracking Total Timed Units (min): 30 min Total Treatment Time (min): 62 min documented in this encounter Plan of Treatment Upcoming Encounters Date Type Department Care Team (Late st Contact Info) Description 03/10/2024 9:15 AM CDT Clinical Support Department of Physical Medicine and Rehabilitation in [place], [place] [address] [place] [address] Rod Collisn M.D. [address] [place] [address] Elana Winters, P.T. [address] [place] [phone] 03/17/2024 9:15 AM CDT Clinical Support Department of Physical Medicine and Rehabilitation in [place], [place] [address] [place] [address] Rod Collins M.D. [address] [place] [phone] Elana Winters P, P.T. [address] [place] [phone] 03/24/2024 12:45 PM CDT Clinical Support Department of Physical Medicine and Rehabilitation in [place] [address] [place] [address] Rod Collins M.D. [address] [place] [phone] Elana Winters P, P.T. [address] [place] [phone] 03/31/2024 12:45 PM CDT Clinical Support Department of Physical Medicine and Rehabilitation in [place] [address] [place] [address] Rod Collins M.D. [address] [place] [phone] Elana Winters P, P.T. [address] [place] [phone] 04/07/2024 12:45 PM CDT Clinical Support Department of Physical Medicine and Rehabilitation in [place], [place] [address] [place] [address] Rod Collins M.D. [address] [place] [phone] Elana Winters P, P.T. [address] [place] [phone] 04/14/2024 12:45 PM CDT Clinical Support Department of Physical Medicine and Rehabilitation in [place], [place] [address] [place] [address] Rod Collins M.D. [address] [place] [phone] Elana Winters, P.T. [address] [place] [phone] 04/21/2024 12:45 PM CDT Clinical Support Department of Physical Medicine and Rehabilitation in [place], [place] [address] [place] [address] Rod Collins M.D. [address] [place] [phone] Elana Winters, P.T. [address] [place] [phone] 04/28/2024 12:45 PM CDT Clinical Support Department of Physical Medicine and Rehabilitation in [place] [address] [place] [address] Rod Collins M.D. [address] [place] [phone] Elana Winters P, P.T. [address] [place] [phone] documented as of this encounter Visit Diagnoses Diagnosis Pain Back- Primary Osteoporosis Pain Low Back Unspecified documented in this encounter Additional Health Concerns Assessment Noted Time PHQ-9 Depression Total Score: 6 08/15/20 22 2:06 AM INTERNET [employer] SPECIALIST documented as of this encounter Care Teams Log Pond Worker Relationship Specialty Start Date End Date Erinn Reina M.D. [address] [place] [address] [place] [phone] PCP - General Family Medicine 09/08/21 documented as of this encounter
--- OUTSIDE RECORDS SUMMARY | 2024-03-06 09:46 | XMS_ITS | Encounter Summary ---
Author Organization [facility] Address [address] [place] [phone] Care Team Providers Care Family Partner Name Role Phone Erinn Reina M.D. Primary Care Provider [phone] Reason for Referral * Physical Therapy (Routine) - Authorized Specialty Diagnoses / Procedures Referred By Osorio guevara Referred To Contact Diagnoses Osteoporosis Pain Low Back Unspecified Pain Back Procedures PT Evaluate and treat Rod Collins M.D. 200 [place] [address] [facility] Region Referral ID Status Reason Start Date Expiration Date V isits Requested Visits Authorized [id number] Authorized 02/05/2024 02/04/2025 99 99 Encounter Details Date Type Department Care Team (Late st Contact Info) Description 02/05/2024 Orders Only Division of Endocrinology in [place], [place] [address] [place] [phone] Rod Collins M.D. [address] [place] [phone] Osteoporosis (Primary Dx); Pain Low Back Unspecified; Pain Back Social History Tobacco Use Types Packs/Day Years [...] declined 03/05/2022 How often do you attend [facility] or adventism services? 1 to 4 times per year 03/05/2022 Do you belong to any clubs o r organizations such as rastafarian groups, unions, fraternal or athletic groups, or [...] Answer Date Recorded PHQ-2 Score 1 08/15/2022 [facility] of Occupat ional Health - Occupational Stress [...] your living situation today? I have a [facility] place to live 04/10/2023 Education Answer Date Recorded What is the highest level of school you have completed or the highest degree you have received? 12th grade 04/14/2019 Sex and Gender Information Value Date Recorded Sex Assigned at Female 10/24/2023 10:51 PM SAP BASIS ADMINISTRATOR Gender Identity Female 02/10/2019 11:51 AM CDT Sexual Orientation Straight 02/10/2019 11 :51 AM CDT documented as of this encounter Plan of Treatment Upcoming Encounters Date Type Department Care Team (Late st Contact Info) Description 03/10/2024 9:15 AM CDT Clinical Support Department of Physical Medicine and Rehabilitation in [place], [place] [address] [place] [address] Rod Collins M.D. [address] [place] [phone] Elana Winters P, P.T. [address] [place] [phone] 03/17/2024 9:15 AM CDT Clinical Support Department of Physical Medicine and Rehabilitation in [place], [place] [address] [place] [address] Rod Collins M.D. [address] [place] [place] [phone] Elana Winters P, P.T. [address] [place] [phone] 03/24/2024 12:45 PM CDT Clinical Support Department of Physical Medicine and Rehabilitation in [place], [place] [address] [place] [address] Rod Collins M.D. [address] [place] [phone] Elana Winters P, P.T. [address] [place] [phone] 03/31/2024 12:45 PM CDT Clinical Support Department of Physical Medicine and Rehabilitation in [place], [place] [address] [place] [address] Rod Collins M.D. [address] [place] [place] [phone] Elana Winters, P.T. [address] [place] [phone] 04/07/2024 12:45 PM CDT Clinical Support Department of Physical Medicine and Rehabilitation in [place], [place] [address] [place] [address] Rod Collins M.D. [address] [place] [phone] Elana Winters P, P.T. [address] [place] [phone] 04/14/2024 12:45 PM CDT Clinical Support Department of Physical Medicine and Rehabilitation in [place], [place] [address] [place] [address] Rod Collins M.D. [address] [place] [phone] Elana Winters P, P.T. [address] [place] [phone] 04/21/2024 12:45 PM CDT Clinical Support Department of Physical Medicine and Rehabilitation in [place], [place] [address] [place] [address] Rod Collins M.D. [address] [place] [phone] Elana Winters P, P.T. [address] [place] [phone] 04/28/2024 12:45 PM CDT Clinical Support Department of Physical Medicine and Rehabilitation in [place], [place] [address] [place] [address] Rod Collins M.D. [address] [place] [phone] Elana Winters, PAnn-MarieTAnn-Marie [address] [place] [phone] documented as of this encounter Visit Diagnoses Diagnosis Osteoporosis- Primary Pain Low Back Unspecified Pain Back documented in this encounter Additional Health Concerns Assessment Noted Time PHQ-9 Depression Total Score: 6 08/15/20 22 2:06 AM SAP BASIS ADMINISTRATOR documented as of this encounter Care Teams Family Partner Relationship Specialty Start Date End Date Erinn Reina M.D. [address] [place] [phone] PCP - General Family Medicine 09/08/21 documented as of this encounter
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
--- OUTSIDE RECORDS SUMMARY | 2024-03-06 09:46 | XMS_ITS | Clinical Summary ---
Author Organization [facility] Address [address] [place] [address] Care Team Providers Care Regulatory Technician Name Role Phone Erinn Reina M.D. Primary Care Provider Source Comments Patient records contain information from all sites at [facility]. For routine questions regarding patient records, call [phone] during business hours, M-F 8:00 AM - 5:00 PM Central Time. Record requests for emergency care only can be directed to [phone] at any time.[facility] Allergies Active Allergy Reactions Criticality Noted [...] 30- 60py cumulative smoking history. 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 In Nov 2021, she [...] Weakness Muscle Weakness General Cervical Disc Disorder Encounters Date Type Department Care Team Description 03/04/2024 1:30 PM CDT Office Visit Division of Pulmonary Medicine in [place], [place] [address] [place] [address] Arjun Umana M.D. Chronic Obstructive Pulmonary Disease (HCC) (Primary Dx); Hypertension Pulmonary (HCC); Chronic Right Heart Failure (HCC); Nicotine Dependence Cigarettes; Abdominal Pain 02/19/2024 Clinical Communication Division of Pulmonary Medicine in [place], [place] [address] [place] [address] Seun Bey M.D. Xcell energy form 02/18/2024 10:45 AM CDT Comprehensive Visit Department of Physical Medicine and Rehabilitation in [place], [place] [address] [place] [address] Rod Collins M.D. Ambroz, Colleen P, P.T. Pain Back (Primary Dx); Osteoporosis; Pain Low Back Unspecified 02/05/2024 Orders Only Division of Endocrinology in [place], [place] [address] [place] [address] Rod Collins M.D. Osteoporosis (Primary Dx); Pain Low Back Unspecified; Pain Back 02/04/2024 10:00 AM CDT Clinical Support Department of Physical Medicine and Rehabilitation in [place], [place] [address] [place] [address] Tony Schwartz P.A.-C. Ambroz, Colleen P, P.T. Fibromyalgia (Primary Dx); Pain Low Back Unspecified 02/04/2024 Clinical Communication Division of Endocrinology in [place], [place] [address] [place] [address] Rod Collins M.D. 02/01/2024 Orders Only Division of Endocrinology in [place], [place] [address] [place] [address] Rod Collins M.D. Anemia Iron Deficiency (Primary Dx); Osteoporosis 01/29/2024 10:45 AM CDT Clinical Support Department of Physical Medicine and Rehabilitation in [place], [place] [address] [place] [phone] Tony Schwartz P.A.-C. Ambroz, Colleen P, P.T. Fibromyalgia (Primary Dx); Pain Low Back Unspecified 01/29/2024 Clinical Communication Department of Family Medicine, [facility], in [place], [place] [address] [place] [address] Erinn Reina M.D. 01/28/2024 9:00 AM CDT Comprehensive Visit Division of Endocrinology in [place], [place] [address] [place] [phone] Jesus Feng APRN, C.N.P. Toro Tobon, David, M.D. Osteoporosis (Primary Dx); Pain Back; Fracture Vertebra Compression Thoracic Closed Initial (HCC) 01/17/2024 12:45 PM CDT Clinical Support Department of Physical Medicine and Rehabilitation in [place], [place] [address] [place] [phone] Tony Schwartz P.A.-C. Ambroz, Colleen P, P.T. Fibromyalgia (Primary Dx); Pain Low Back Unspecified 01/15/2024 11:30 AM CDT - 01/15/2024 11:59 PM CDT Hospital Encounter Department of Laboratory Medicine in [place], [place] [address] [place] [address] Vitor Calle M.D. Dyspnea Multifactorial; Anemia Iron Deficiency Discharge Disposition: Home or Self Care 01/09/2024 Orders Only Department of Vascular Medicine in [place], [place] [address] [place] [address] Tony Schwartz P.A.-C. Anemia Iron Deficiency (Primary Dx) 01/08/2024 11:30 AM CDT Office Visit Department of Cardiovascular Diseases in [place], [place] [address] [place] [address] Vitor Calle M.D. Dyspnea Multifactorial (Primary Dx) 01/07/2024 Orders Only [facility] Erinn Johnson M.D. 01/06/2024 12:30 PM CDT Clinical Support Department of Physical Medicine and Rehabilitation in [place], [place] [address] [place] [phone] Tony Schwartz P.A.-CElana Garcia, P.T. Fibromyalgia; Pain Low Back Unspecified 01/02/2024 9:15 AM CDT Clinical Support Department of Physical Medicine and Rehabilitation in [place], [place] [address] [place] [address] Tony Schwartz P.A.-C. Ambroz, Colleen P, P.TAnn-Marie Fibromyalgia (Primary Dx); Pain Low Back Unspecified 01/01/2024 1:14 PM CDT - 01/01/2024 11:59 PM CDT Hospital Encounter Department of Cardiovascular Diseases in [place], [place] [address] [place] [address] Vitor Calle M.D. Dilated Aortic Root (HCC); Dyspnea Multifactorial Discharge Disposition: Home or Self Care 12/26/2023 10:45 AM CDT Clinical Support Department of Physical Medicine and Rehabilitation in [place], [place] [address] [place] [address] Tony Schwartz P.A.-C. Ambroz, Colleen P, P.TAnn-Marie Fibromyalgia (Primary Dx); Pain Low Back Unspecified 12/05/2023 Clinical Communication Division of Pulmonary Medicine in [address] [address] Seun Bey M.D. from Last 3 Months Immunizations Name Administration Dates Next Due Influenza Split 07/07/2000 Influenza TIV (IM) 07/24/2007 Influenza high dose QV(65 years or older) (PF) 0 06/15/2020 PCV13 10/17/2015 PPSV23 03/11/2013,07/07/2000 SARS-COV-2 (COVID-19) - PFIZ ER (Discontinued)(12 years or older) 06/28/2021 SARS-COV-2 (COVID-19) - PFIZ ER TS(Discontinued)(12 years or older) 05/11/2022 influenza high dose (65 years or older) (PF) 08/2020 Family History Medical History Relation Name Comments Breast cancer Mother Breast cancer Sister Carol hagen ADD Son Jose Antonio Rivera Relation Name Status Comments Mother Sister Carol Rivera Social History Tobacco Use Types Packs/Day Years [...] declined 03/05/2022 How often do you attend [facility] or pentecostal services? 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 [address] [place] [address] Elana Winters P, P.T. [address] [place] [address] 03/17/2024 9:15 AM CDT Clinical Support Department of Physical Medicine and Rehabilitation in [place], [place] [address] [place] [address] Rod Collins M.D. [address] [place] [address] Elana Winters P, P.T. [address] [place] [phone] 03/24/2024 12:45 PM CDT Clinical Support Department of Physical Medicine and Rehabilitation in [place], [place] [address] [place] [address] Rod Collins M.D. [address] [place] [phone] Elana Winters P, P.T. [address] [place] [phone] 03/31/2024 12:45 PM CDT Clinical Support Department of Physical Medicine and Rehabilitation in [place], [place] [address] [place] [address] Rod Collins M.D. [address] [place] [phone] Elana Winters P, P.T. [address] [place] [phone] 04/07/2024 12:45 PM CDT Clinical Support Department of Physical Medicine and Rehabilitation in [place], [place] [address] [place] [address] Rod Collins M.D. [address] [place] [phone] Elana Winters P, P.T. [address] [place] [phone] 04/14/2024 12:45 PM CDT Clinical Support Department of Physical Medicine and Rehabilitation in [place], [place] [address] [place] [address] Rod Collins M.D. [address] [place] [phone] Ealna Winters, P.T. [address] [place] [address] 04/21/2024 12:45 PM CDT Clinical Support Department of Physical Medicine and Rehabilitation in [place], [place] [address] [place] [address] Rod Collins M.D. [address] [place] [address] Elana Winters, P.T. [address] [place] [address] 04/28/2024 12:45 PM CDT Clinical Support Department of Physical Medicine and Rehabilitation in [place], [place] [address] [place] [address] Rod Collins M.D. [address] [place] [address] Elana Winters, P.T. [address] [place] [address] Health Maintenance Due Date Last Done Comments Hepatitis C Screening 1945 Visit: Medicare Annual Wellness 1945 Zoster Vaccines (1 of 2) 1995 Depression Monitoring (PHQ-9) 12/13/2022 08/15/2022 Visit: Annual, age 65+ (or Medicare and <65) 05/08/2023 05/08/2022 Fall Risk Screen (Annual) 10/07/2023 COVID-19 Vaccine (2022-2 4 season) 2023 08/21/2023, 05/11/2022, 06/28/2021, Additional history exists Creatinine Level (Kidney Fun ction Test) 01/27/2025 01/28/2024, 01/15/2024, 10/30/2023, Additional history exists Potassium Level 01/27/2025 01/28/2024, 01/05, 06/04/2023, Additional history exists Sodium Level 01/27/2025 01/28/2024, 01/05, 06/04/2023, Additional history exists Pneumococcal vaccine (65+ years) Completed 10/17/2015, 03/11/2013, 07/07/2000 Lung Cancer Screening Discontinued 09/16/2019 , 09/16/2019, 10/28/2018, Additional history exists Mammogram Discontinued 09/16/2019, 09/06, 05/03/2016 Influenza Vaccine Completed 08/21/2023, , 11/17/2019, Additional history exists Bone Density Scan (Osteoporo sis Screen) Discontinued 11/01/2023 Medical Devices Implanted Type Area Axle Polisher Device Identifier Shelf Expiration Date Model / Serial / Lot Stnt Visi Pro Otw [id number] - [id number] Implanted:Qt y: 1 on 05/04/2019 by Tyson Liao M.D. at [facility] Biliary Stent N/A: Arterial Medtronic 09/24/2019 [id number] / / [id number] Description:SMA #2 Stnt Visi Pro Otw [id number] - [id number] Implanted:Qt y: 1 on 05/04/2019 by Tyson Liao M.D. at [facility] Biliary Stent Right: Arterial Medtronic 03/23/2021 [id number] / / [id number] Description:Celiac Artery #2 Stnt Icast Atrm Cov [id number] - [id number] - [id number] Implanted:Qt y: 1 on 05/04/2019 by Tyson Liao M.D. at [facility] Respiratory Stent Right: Arterial Atrium 02/18/2022 [id number] / [id number] / Description:Right Renal Emma ry Stnt Icast Atrm Cov [id number] - [id number] - [id number] Implanted:Qt y: 1 on 05/04/2019 by Tyson Liao M.D. at [facility] Respiratory Stent Right: Arterial Atrium 02/06/2022 [id number] / [id number] / Description:Left renal arter y Stnt Icast Atrm Cov [id number] - [id number] - [id number] Implanted:Qt y: 1 on 05/04/2019 by Tyson Liao M.D. at [facility] Respiratory Stent Right: Arterial Atrium 03/27/2022 [id number] / [id number] / Description:SMA Stnt Icast Atrm Cov [id number] - [id number] - [id number] Implanted:Qt y: 1 on 05/04/2019 by Tyson Liao M.D. at [facility] Respiratory Stent Right: Arterial Atrium 01/29/2022 [id number] / [id number] / Description:Left renal arter y Stnt Icast Atrm Cov [id number] - [id number] - [id number] Implanted:Qt y: 1 on 05/04/2019 by Tyson Liao M.D. at [facility] Respiratory Stent Right: Arterial Atrium 03/27/2022 [id number] / [id number] / Description:Celiac Artery Qvy-Zinalk-G enestrated-P natali Stent Graft Implanted:Qt y: 1 on 05/04/2019 by Tyson Liao M.D. at [facility] Stent Other N/A: Aorta [employer] [id number] 03/23/2022 [id number] / / [id number] Aaa-Bifurcat ed-Graft Implanted:Qt y: 1 on 05/04/2019 by Tyson Liao M.D. at [facility] Stent Other N/A: Aorta [employer] [id number] 03/17/2022 [id number] / / [id number] Grft Znt Ilc Ext [id number] - [id number] Implanted:Qt y: 1 on 05/04/2019 by Tyson Liao M.D. at [facility] Vascular Graft Left: Arterial [employer] 12/02/2021 [id number] / / [id number] Description:Left Iliac Stnt Innova Otw [id number] - [id number] Implanted:Qt y: 1 on 05/04/2019 by Tyson Liao M.D. at [facility] Vascular Stent Right: Arterial [employer] 11/03/2020 [id number] / / [id number] Description:Right Renal Emma ry Procedures Procedure Name Priority Date/Time Associated Diagnosis Comments ARTERIAL BLOOD GAS - PULMONARY CLINIC Routine 03/04/2024 2:42 PM CDT Chronic Obstructive Pulmonary Disease (HCC) TISSUE TRANSGLUTAMINASE (TTG) AB, IGA, S Routine 01/28/2024 10:16 AM CDT RI T4 FREE Routine 01/28/2024 10:16 AM CDT [...] (HCC) CREATINE KINASE (CK), S Routine 01/28/20 10:16 AM CDT Pain Back Fracture Vertebra [...] BILATERAL WITH TOMOSYNTHESIS Routine 09/16/2019 10:48 [address] INDUSTRIAL SECURITY ANALYST CT CHEST WITHOUT IV CONTRAST Routine 08/2019 10:02 AM INDUSTRIAL SECURITY ANALYST from Last 3 Months or Most Recently [...] CDT Arjun Umana M.D. LAB BLOOD ADD-ON [facility] [address] [place] [address], [facility]3] [address] [place] [address] * Quantitative M-protein Study (01/28/2024 10:16 AM CDT) Immunoglobulin A (IgA), S 304 61 - 356 mg/dL 01/28/2024 2:56 PM CDT [facility] Immunoglobulin M (IgM), S 70 37 - 286 mg/dL 01/28/2024 2:57 PM CDT [facility] Immunoglobulin G (IgG), S 1140 767 - 1590 mg/dL 01/28/2024 2:56 PM CDT [facility] Therapeutic Antibody Administered? Unspecified 01/28/2024 1:55 PM CDT [facility] Flag, M-protein Isotype Negative Negative 01/29/2024 12:53 PM CDT [facility] QMPTS Interpretation No monoclonal protein detected. 01/29/2024 12:53 PM CDT [facility] Comment: ----ADDITIONAL INFORMATION---- The submitted sample was assayed by five separate immunopurifications for IgG, IgA, IgM, kappa and lambda. ??The result reflects the findings of either no monoclonal protein detected or those monoclonal immunoglobulins that were detected. This test was developed and its performance characteristics determined by [facility] in a manner consistent with CLIA requirements. This test has not been cleared or approved by the U.S. Food and Drug Administration. Blood (Blood, Venous) 01/28/2024 10:16 AM CDT 01/28/2024 2:02 PM CDT Narrative [facility] - 01/29/2024 12:53 PM CDT Specimen Information: Specimen ID: [id number] Specimen Type: Blood Specimen Collection Start Date: 01/28/2024 10:16 AM Specimen Received Date: 01/28/2024 ??2:02 PM Specimen ID: [id number] Specimen Type: Blood Specimen Collection Start Date: 01/28/2024 10:16 AM Specimen Received Date: 01/28/2024 ??1:55 PM Rod Perales M.D. LAB BLOOD ADD-ON [facility] [address] [place] [address] [facility] [address] [place], [place] [phone] [place] [address] [address] [place] [address] [place] [address] * T4 (Thyroxine), Free, Serum (01/28/2024 10:16 AM CDT) Pathologist [facility] T4 (Thyroxine), Free, S 1.0 0.9 - 1.7 ng/dL 01/28/2024 11:30 AM CDT DTL Blood 01/28/2024 10:1 6 AM CDT 01/28/2024 10:42 AM CDT Rod Perales M.D. LAB BLOOD ADD-ON [facility] [address] [place] [address], [place] [facility] [address] [place] [address] * (ABNORMAL) Thyroid Function [place] (01/28/2024 10:16 AM CDT) TSH, Sensitive 4.4(H) 0.3 - 4.2 mIU/L 01/28/2024 11:09 AM CDT DT Blood (Blood, Venous) 01/28/2024 10:16 AM CDT 01/28/2024 10:42 AM CDT Rod Perales M.D. LAB BLOOD ADD-ON Performing Organization Address [facility] de Phone Number [facility] [address] [place] [address], [facility] [address] [place] [address] * Celiac Disease Serology [place] (01/28/2024 10:16 AM CDT) Immunoglobulin A (IgA), S 304 61 - 356 mg/dL 01/28/2024 2:56 PM CDT [facility] Celiac Disease Interpretation See Comment: Negative serology. Celiac disease unlikely. However, approximately 10% of patients with celiac disease are seronegative. Also, patients who are already adhering to a gluten-free diet may be seronegative. If celiac disease is highly clinically suspected, consider HLA-DQ typing. 01/28/2024 9:15 PM CDT [facility] Blood (Blood, Venous) 01/28/2024 10:16 AM CDT 01/28/2024 2:02 PM CDT Narrative [facility] - 01/28/2024 9:15 PM CDT Specimen Information: Specimen ID: [id number] Specimen Type: Blood Specimen Collection Start Date: 01/28/2024 10:16 AM Specimen Received Date: 01/28/2024 ??2:02 PM Specimen ID: [id number] Specimen Type: Blood Specimen Collection Start Date: 01/28/2024 10:16 AM Specimen Received Date: 01/28/2024 ??2:00 PM Rod Perales M.D. LAB BLOOD ADD-ON [facility] [address] [place] [address] [facility] [address] [place] [address] [facility] [address] [place] [address] [place] [address] * Thyroperoxidase (TPO) Antibodies (01/28/2024 10:16 AM CDT) Thyroperoxidase Ab, S 18.5 <34.0 IU/mL 01/28/2024 11:30 AM CDT [facility] Blood 01/28/2024 10:1 6 AM CDT 01/28/2024 10:42 AM CDT Rod Perales M.D. LAB BLOOD ADD-ON Performing Organization Address City/[facility]/ZIP Co de Phone Number [facility] [address] [place] [address], [facility]3] [address] [place] [address] * tTG (Tissue Transglutaminase), Antibody, IgA (01/28/2024 10:16 AM CDT) Tissue Transglutaminase Ab, IgA, S <1.2 <4.0 (Negative ) U/mL 01/28/2024 6:42 PM CDT [facility] Blood 01/28/2024 10:1 6 AM CDT 01/28/2024 3:19 PM CDT Rod Perales M.D. LAB BLOOD ADD-ON [facility] [address] [place] [address] [facility] [address] [place] [address] * Connective Tissue Diseases [place] (01/28/2024 10:16 AM CDT) Antinuclear Ab, S 0.1 <=1.0 (Negative ) U 01/28/2024 7:56 PM CDT [facility] Comment: ----ADDITIONAL INFORMATION---- Method: Enzyme-linked immunoassay using HEp-2 nuclear extract supplemented with purified antigens. Cyclic Citrullinated Peptide Ab, S <15.6 <20.0 (Negative ) U 01/28/2024 6:40 PM CDT [facility] Interpretation SEE COMMENT 7:56 PM CDT [facility] Comment: Tests for antibodies to dsDNA and DERIC antigens are not performed automatically unless the TERRI result is > or = 3.0 U. ??Studies performed at [facility] indicate that positive TERRI results <3.0 U are rarely accompanied by positive second order tests. Blood (Blood, Venous) 01/28/2024 10:16 AM CDT 01/28/2024 1:59 PM CDT Rod Perales M.D. LAB BLOOD ADD-ON [facility] [address] [place] [address] [facility] [address] [place] [address] * (ABNORMAL) 25-Hydroxyvitamin D2 and D3 (01/28/2024 10:16 AM CDT) [facility] 25-Hydroxy D2 <4.0 ng/mL 01/30/2024 9:01 AM CDT [facility] 25-Hydroxy D3 18 ng/mL 01/30/2024 9:01 AM CDT [facility] 25-Hydroxy D Total 18(L) ng/mL 2023 9:01 AM T [facility] Comment: Interpretation: 10-19 ng/mL (mild to moderate deficiency) ----REFERENCE VALUE---- 25-HYDROXY D TOTAL (D2+D3) Optimum levels in the healthy population are 20-50. ----ADDITIONAL INFORMATION---- This test was developed and its performance characteristics determined by [facility] in a manner consistent with CLIA requirements. This test has not been cleared or approved by the U.S. Food and Drug Administration. Blood (Blood, Venous) 01/28/2024 10:16 AM CDT 01/28/2024 1:32 PM CDT Rod Perales M.D. LAB BLOOD ADD-ON Performing Organization Address City/[facility]/ZIP Co de Phone Number [facility] [address] [place] [address] [facility] [address] [place] [address] [place] [address] * Dehydroepiandrosterone Sulfate (DHEA-S) (01/28/2024 10:16 AM CDT) Dehydroepiandrosterone Sulfate, S 72 5.3 - 124 mcg/dL 01/28/2024 3:53 PM CDT [facility] Blood (Blood, Venous) 01/28/2024 10:16 AM CDT 01/28/2024 2:58 PM CDT Rod Perales M.D. LAB BLOOD ADD-ON Performing Organization Address [facility] Co de Phone Number [facility] [address] [place] [address] [facility] [address] [place] [address] * Sedimentation Rate (01/28/2024 10:16 AM CDT) Sedimentation Rate, B 8 3 - 28 mm/h 01/28/2024 11:48 AM CDT DT Blood (Blood, Venous) 01/28/2024 10:16 AM CDT 01/28/2024 10:30 AM CDT Rod Perales M.D. LAB BLOOD ADD-ON [facility] [address] [place] [address], [facility] [address] [place] [address] * (ABNORMAL) CBC with Differential, Blood (01/28/2024 [...] 10:16 AM CDT 01/28/2024 10:30 AM CDT oRd Perales M.D. LAB BLOOD ADD-ON [facility] [address] [place] [address], [facility] DTL [facility] [address] [place] [address] [facility] [address] [place] [address] * Rheumatoid Factor (01/28/2024 10:16 AM CDT) Rheumatoid Factor, S <15 <15 IU/mL 01/28/2024 3:40 PM CDT [facility] Blood (Blood, Venous) 01/28/2024 10:16 AM CDT 01/28/2024 3:01 PM CDT Rod Perales M.D. LAB BLOOD ADD-ON [facility] [address] [place] [address] [facility] [address] [place] [address] * CRP (C-Reactive Protein) (01/28/2024 10:16 AM CDT) [facility] C-Reactive Protein (CRP), S <3.0 <5.0 mg/L 01/28/2024 11:09 AM CDT DT Blood (Blood, Venous) 01/28/2024 10:16 AM CDT 01/28/2024 10:42 AM CDT Rod Perales M.D. LAB BLOOD ADD-ON Performing Organization Address City/[facility]/ZIP Co de Phone Number [facility] [address] [place] [address], [facility]3] [address] [place] [address] * Ferritin (01/28/2024 10:16 AM CDT) Only the most recent of2 resultswithin the time period is included. [facility] Ferritin, S 262 11 - 328 mcg/L 01/28/2024 11:09 AM CDT DTL Blood (Blood, Venous) 01/28/2024 10:16 AM CDT 01/28/2024 10:42 AM CDT Rod Perales M.D. LAB BLOOD ADD-ON [facility] [address] [place] [address], [facility] [address] [place] [address] * CK (Creatine Kinase) (01/28/2024 10:16 AM CDT) Creatine Kinase (CK), S 116 26 - 192 U/L 01/28/2024 11:09 AM CDT DTL Blood (Blood, Venous) 01/28/2024 10:16 AM CDT 01/28/2024 10:42 AM CDT Rod Perales M.D. LAB BLOOD ADD-ON Performing Organization Address City/[facility]/ZIP Co de Phone Number [facility] [address] [place] [address] * Cortisol (01/28/2024 10:16 AM CDT) Pathologist [facility] Cortisol, Random, S 12 mcg/dL 01/28/2024 11:09 AM CDT DT Comment: ----REFERENCE VALUE---- AM ([id number]): 4.8-20 PM ([id number]): 2.5-12 Blood (Blood, Venous) 01/28/2024 10:16 AM CDT 01/28/2024 10:42 AM CDT Rod Perales M.D. LAB BLOOD ADD-ON Performing Organization Address City/[facility]/ZIP Co de Phone Number [facility] [address] [place], [place] [id number] [place] [address] [address] [place] [address] * (ABNORMAL) Comprehensive Metabolic Panel (01/28/2024 10:16 [...] CDT Rod Perales M.D. LAB BLOOD ADD-ON [facility] [address] [place] [address], [place] DTL [facility] [address] [place] [address] * NT-Pro B-Type Natriuretic Peptide (BNP) (01/15/2024 [...] M.D. LAB BLOOD ADD-ON Performing Organization Address City/[facility]/ZIP Co de Phone Number [facility] [address] [place] [address], [place] OWAT [facility] [address] [place] [address] * (ABNORMAL) Iron and Total Iron-Binding Capacity (01/15/2024 11:41 AM CDT) Pathologist [facility] Iron 45 35 - 145 mcg/dL 01/15/2024 3:26 PM CDT [facility] Total Iron Binding Capacity 224(L) 250 - 400 mcg/dL 01/15/2024 3:26 PM CDT [facility] Percent Saturation 20 14 - 50 % 01/15/2024 3:26 PM CDT [facility] Blood (Blood, Venous) 01/15/2024 11:41 AM CDT 01/15/2024 3:07 PM CDT Tony Schwartz P.A.-C. LAB BLOOD ADD-ON [facility] [address] [place] [address], [facility] AUST [facility] [address] [place] [address] * Sodium (01/15/2024 11:41 AM CDT) Sodium, P 139 135 - 145 mmol/L 01/15/2024 2:15 PM CDT OWAT Blood (Blood, Venous) 01/15/2024 11:41 AM CDT 01/15/2024 1:31 PM CDT Vitor Calle M.D. LAB BLOOD ADD-ON Performing Organization Address City/[facility]/ZIP Co de Phone Number [facility] [address] [place] [address], [place] OW[place] [facility] [address] [place] [address] * Potassium (01/15/2024 11:41 AM CDT) Potassium, P 4.5 3.6 - 5.2 mmol/L 01/15/2024 2:15 PM CDT OWAT Blood (Blood, Venous) 01/15/2024 11:41 AM CDT 01/15/2024 1:31 PM CDT Vitor Calle M.D. LAB BLOOD ADD-ON Performing Organization Address [facility]/ZIP Co de Phone Number [facility] [address] [place] [address], [place] OW[place] [facility] [address] [place] [address] * Creatinine with Estimated GFR (01/15/2024 11:41 AM CDT) Creatinine 0.72 0.59 - 1.04 mg/dL 01/15/2024 2:15 PM CDT OWAT Estimated GFR (eGFR) 86 >=60 mL/min/BSA 01/15/2024 2:15 PM CDT OWAT Comment: Estimated GFR calculated using the 2020 CKD_EPI creatinine equation. Blood (Blood, Venous) 01/15/2024 11:41 AM CDT 01/15/2024 1:31 PM CDT Vitor Calle M.D. LAB BLOOD ADD-ON [facility] [address] [place] [address], [place] [facility] [address] [place] [address] * (TTE) 2D ECHO DOPPLER COLOR (01/01/2024 [...] ratio). Calculated 2-D linear left ventricular ejection [id number]%. No regional wall motion abnormalities. Grade 1a/3 [...] Advance Directives For more information, please contact: [phone] Documents on File Type Date Recorded Patient Hotel Housekeeper Expl anation Advance Directives 02/06/2024 9:39 AM [...] Answer Comments Full Code: Discussed Care Teams Regulatory Technician Relationship Specialty Start Date End Date Erinn Reina M.D. [address] [place] [address] [place]idd [phone] PCP - General Family Medicine 09/08/21
--- OUTSIDE RECORDS SUMMARY | 2024-03-06 09:46 | XMS_ITS | Encounter Summary ---
Author Organization [facility] Address [address] [place] [address] Care Team Providers Care Waiter/Waitress Club Name Role Phone Erinn Reina M.D. Primary Care Provider [phone] Reason for Visit * Physical Therapy (Routine) - Canceled Specialty Diagnoses / Procedures Referred By Osorio guevara Referred To Contact Diagnoses Fibromyalgia Pain Low Back Unspecified Procedures PT Ongoing treatment Tony Schwartz P.AAnn-Marie-CAnn-Marie [address] [place] [address] [facility] Region Referral ID Status Reason Start Date Expiration Date V isits Requested Visits Authorized [id number] Canceled 06/07/2023 06/06/2024 99 [phone] Encounter Details Date Type Department Care Team (Latest Contact Info) Description 02/04/2024 10:00 AM CDT Clinical Support Department of Physical Medicine and Rehabilitation in [place], [place] [address] [place] [phone] Tony Schwartz, PAnn-MarieA.-CAnn-Marie [address] [place] [phone] Elana Griffin, P.TAnn-Marie [address] [place] [phone] Fibromyalgia (Primary Dx); Pain Low Back Unspecified Social History Tobacco [...] How often do you attend chur or uatsdin services? 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 - 02/04/2024 10:00 AM CDT Patient is a 78 y.o. female referred to clinic for Problem List Items Addressed This Visit Musculoskeletal Fibromyalgia - Primary Other Visit Diagnoses Pain Low Back Unspecified . Patient has been seen in Physical Therapy from 05/24/2022 to 02/06/2024 for a total of 50 visits. On assessment, patient presented with fibromyalgia, cervical, thoracic, sacral pain. Patient has been partially compliant with home exercise program and at home recommendations. REASON FOR DISCHARGE: Patient has changed medical care in last few months in his awaiting new referral orders from her new physicians following her care. At this time discharge patient's chart and await new referral before initiating physical therapy again. Functional Goals and Timeframes: Patient has not met her therapy goals. Pt was reminded she can call at any time with questions or concerns. Patient is in agreement with discharge at this time. Thank you for this referral. Physical Therapy Outpatient Treatment Note SUBJECTIVE Patient's Name: Marty Rivera Referring Provider: Tony Schwartz P.A.-C. Visit Diagnosis: 1. Fibromyalgia 2. Pain Low Back Unspecified Reason for Referral: Chronic Pain Exacerbation that occur throughout her back but most notably in her cervical and thoracic region. Patient also has history with lumbar and sacral symptoms. Onset Date: 05/08/22 Payor: MEDICARE / Plan: MEDICARE A AND B / Product Type: Medicare / PT Next Certification Date: 02/14/2024 Epic Visit Count: 50 Precautions Other Precautions: COPD, osteoporotic, history of compression fracture in thoracic and lumbar region, fragile skin/ integrity, osteopenia, Anemic History of Present Illness: Patient has long history with Fibromyalgia with episodes of exacerbation of symptoms. With patient's medical history her thoracic and cervical region continue to be her primary areas of symptoms. Patient has experienced increased stress with spouse's medical condition req uiring her to be more active with day to day management of tasks as well as increased number of medical issues for herself that she has been treating. With the recent loss of her spouse in July, patient is still recovering from his loss and the day to day changes that impact her. Family/Caregiver Present: No Additional Staff Present During Session: None Patient/Caregiver Goals: Quality of life and pain management. Patient comments: Patient returns for follow-up appointment for physical therapy. Patient reports she contact with the doctor's office again regarding the referral and provided fax number, e-mail address, phone number for completion of referral reaching the office. Patient indicates she has had incr eased stress since her last appointment and finds herself tensing up in making fists including on her way to her appointment today. Patient adds this is increasing her overall symptoms in her neck and back as well as influencing her breathing. OBJECTIVE Pain: Not formally rated today. 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 During Session patient requested removal of oxygen in her levels were observed to decline dramatically 73-77%. Therapist replaced oxygen nasal cannula for the patient for comfort and she resume to higher levels and better tolerated treatment. Neck Pain Disability Index (NDI) Neck Disability Index Raw Score: 21 Neck Disability Index Percent: 42 % 02/14/23: Neck Disability Index Raw Score: 19 Neck Disability Index Percent: 38 % Oswestry Low Back Raw Score: 17 Oswestry Low Back Index:38% 11/26/23: Neck Disability Index Raw Score: 19 Neck Disability Index Percent: 42 % Oswestry Low Back Raw Score: 22 Oswestry Low Back Index:45% Observation/Inspection: Patient is observed to have some labored breathing with patient talking during manual therapy when not using supplemental oxygen.. Patient continues to demonstrate progressiveforward scoliosis of the thoracic region in elevated shoulders bilaterally. Patient demonstrates decreased bilateral shoulder flexion, adduction, and abduction. Mobility/Transfers: Patient requires CGA/ Min A with transfers on / off the stool for safety Ambulation: Patient remains limited with ambulation and a wheelchair was utilized to provide transportation in /out of clinic and within the clinic. Patient utilizes light touch when transferring from the wheelchair to and from the stool for care Palpation: Increased symptoms left greater than right paraspinals T3-T8, and Left greater then right throughout her cervical region. There is increased hypertonicity throughout patient's bilateral upper quadrants including sternocleidomastoid and scalenes, traps and levators. Patient also demonstrates increased hypertonicity in her lower lumbar left side paraspinals compared to right with symptoms provoked. Range of Motion: (11/26/23) In seated position today - 60 forward flexion taken at apex of thoracic region at T4 Active Cervical active range of motion (11/26/23) while seated post treatment Flexion: 44?? Extension: 32?? Rotation: Right: 28?? left: 28?? Lateral flexion: Right: 8?? left: 12?? Ortho Exam TREATMENT Treatment today consisted of: Manual Therapy: Patient placed in seated position utilizing face cradle as patient tolerated and soft tissue mobilization was initiated along the sacral and lumbar region into the quadratus lumborum and progressed throughout the thoracic region including greater time around the Left greater then right scapulas in the mid thoracic area. Soft tissue work was performed bilateral through the axillaryregion lateral scapular area soft tissue work continued along the parascapular region throughout the thoracic region and progressed proximally to both upper quadrants and throughout the upper trap, levator, scalenes into the occipital region bilaterally as patient was able to tolerate. Superior to inferior direction of both scapula is performed with mobilization technique static hold grade 2 progressing only as patient was able to tolerate and relax with verbal cues for breathing strategies. Along with tactile cues to maintain stability and posture gentle posterior to anterior mobilization ofthe thoracic and costal region left side greater than right per patient's complaints of symptoms performed grade 2. Patient's posture was passively adjusted into upright extension to adjust directionand mobilization per patient's tolerance. In an effort to provide manual traction for the cervical region attempts made at manual distraction while seated with passive flexion for increased tolerance gentle static grade to hold 3 x 10 seconds each. In addition manual traction attempted with passiveanterior to posterior mobilizations through the spinous processes for increased range of motion with progression of flexion as tolerated x 5 each. Patient's left shoulder attempted to mobilize glenohumeral region in an anterior to posterior fashion grade 2/3 with various positioning of passive flexion, abduction, and external rotation for optimal recovery and maintenance of range of motion. This was repeated to the right shoulder as well with repeated verbal cues for the patient to relax to allow improved mobility. Therapeutic Exercises: PROM performed to both shoulders including flexion, scaption, external rotation with passive scapular retraction in a superior to inferior direction to stabilize. In addition horizontal abduction adding external rotation Almaguer stretch was also performed bilaterally. Manual resistance was provided bilaterally to external internal rotation x 10 in the left x5 on the right and resisted shoulder flexion overhead with scapular depression assisted x5 on the left x5 on the right. Home Exercise Program/Education: Patient has prior home exercise program including stretches for her thoracic cervical region and strengthening exercises 01/14/23: Verbally review, physically demonstrate home exercise program with the patient encouragingthoracic range of motion, and chest wall including Almaguer stretches to reduce thoracic kyphosis. 04/01/23: Standing shoulder extension with yellow theraband, wall angels, shoulder flexion/thoracic extension with hands on the wall AAROM. 10/15/23: Verbally and demonstration utilized to remind patient of exercises including supine over head shoulder flexion and supine angels for increasing back extension and opening her chest wall for breathing, stretching, and general scapular mobility. Patient verbalizes she remembers the exercises. [employer]: [email or web address] Access Code: [email or web address] Patient reports fair HEP compliance. Patient reports she forgets to perform them, but indicates when she does do them, they do help. Assessment Clinical Impression: Patient returns to physical therapy today with ongoing symptoms in her back and neck region that continue to limit her. Patient continues to demonstrate progressive kyphosis and scoliosis impacting patient's breathing. Patient demonstrate erratic breathing today as observed with and without oxygen portable tank. Patient's symptoms consistent with her chronic pain and progressive kyphosis. Patient remains limited with thoracic and cervical region range of motion . While she verbally indicates she feels better, patient remains limited with all mobility and hypertonicity throughout her cervical and thoracic region. Patient requires CGA/ Min A with transfers for safety. Patient continues to benefit from physical therapy at this time to maintain overall mobility of her spine and chest wall, cervical region, and shoulders to further manage her headaches and reduced deterioration of her posture impacting her breathing and mobility. Functional Goals and Timeframes: PT Goal #1: Patient will be able to ambulate 30 Meters without use of hands to steady herself and remain independent with ambulation safely. PT Goal #1 Date: 02/07/24 PT Goal #1 Status: Ongoing PT Goal #2: Patient will reduce Headache frequency to 3 x / week to improve day to day tolerance ofactivities and improve quality of living. PT Goal #2 Date: 02/07/24 PT Goal #2 Status: Ongoing PT Goal #3: Patient will be able to tolerate standing for up to 15:00 to complete tasks such as meal preparation, clean up tasks, bathing, without increased pain limiting her PT Goal #3 Date: 02/21/24 PT Goal #3 Status: Ongoing PT Goal #4: Patient will be able to perform tasks in the community such as shopping with upright posture independently while using a cart to steady herself safely for up to 15:00. PT Goal #4 Date: 02/07/24 PT Goal #4 Status: Ongoing Plan Plan for next session: Patient advised to perform stretches for thoracic and cervical region as well as shoulder for mobility. Patient encouraged to continue to walk within her apartment as able to maintain her general strength. Follow up with use of 4WW Time Spent with Patient Therapeutic Interventions Manual Therapy (min): 39 min Therapeutic Exercise (min): 5 min Time Tracking Total Timed Units (min): 44 min Total Treatment Time (min): 44 min documented in this encounter Miscellaneous Notes * Addendum Note - Elana Griffin, P.T. - 02/04/2024 10:00 AM CDTAddended by: ELANA GRIFFIN on: 02/06/2024 10:26 AM Modules accepted: Orders documented in this encounter Plan of Treatment Upcoming Encounters Date Type Department Care Team (Late st Contact Info) Description 03/10/2024 9:15 AM CDT Clinical Support Department of Physical Medicine and Rehabilitation in [place], [place] [address] [place] [address] Rod Collins M.D. [address] [place] [address] Elana Griffin P.T. [address] [place] [phone] 03/17/2024 9:15 AM CDT Clinical Support Department of Physical Medicine and Rehabilitation in [place], [place] [address] [place] [address] Rod Collins M.D. [address] [place] [phone] Elana Griffin P, P.T. [address] [place] [phone] 03/24/2024 12:45 PM CDT Clinical Support Department of Physical Medicine and Rehabilitation in [place], [place] [address] [place] [address] Rod Collins M.D. [address] [place] [phone] Elana Griffin P, P.T. [address] [place] [phone] 03/31/2024 12:45 PM CDT Clinical Support Department of Physical Medicine and Rehabilitation in [place], [place] [address] [address] Rod Collins M.D. [address] [place] [phone] Elana Griffin P, P.T. [address] [place] [phone] 04/07/2024 12:45 PM CDT Clinical Support Department of Physical Medicine and Rehabilitation in [place], [place] [address] [place] [address] Rod Collins M.D. [address] [place] [phone] Elana Griffin P, P.T. [address] [place] [phone] 04/14/2024 12:45 PM CDT Clinical Support Department of [facility] Rehabilitation in [place], [place] [address] [place] [address] Rod Collins M.D. [address] [place] [phone] Elana Griffin P, P.T. [address] [place] [phone] 04/21/2024 12:45 PM CDT Clinical Support Department of Physical Medicine and Rehabilitation in [place], [place] [address] [place] [address] Rod Collins M.D. [address] [place] [phone] Elana Griffin P, P.T. [address] [place] [phone] 04/28/2024 12:45 PM CDT Clinical Support Department of [facility] Medicine and Rehabilitation in [place], [place] [address] [place] [address] Rod Collins M.D. [address] [place] [phone] Elana Griffin P, P.T. 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 [address] [place] [address] [place] [phone] PCP - General Family Medicine 09/08/21 documented as of this encounter
--- OUTSIDE RECORDS SUMMARY | 2024-03-06 09:47 | XMS_ITS | Encounter Summary ---
Author Organization [facility] Address [address] [place] [address] Care Team Providers Care Mass Spec Name Role Phone Erinn Reina M.D. Primary Care Provider [phone] Reason for Visit * Physical Therapy (Routine) - Canceled Specialty Diagnoses / Procedures Referred By Osorio guevara Referred To Contact Diagnoses Fibromyalgia Pain Low Back Unspecified Procedures PT Ongoing treatment Tony Schwartz P.AAnn-Marie-CAnn-Marie [address] [place] [address] [facility] Region Referral ID Status Reason Start Date Expiration Date V isits Requested Visits Authorized [id number] Canceled 06/07/2023 06/06/2024 99 99 Encounter Details Date Type Department Care Team (Latest Contact Info) Description 01/17/2024 12:45 PM CDT Clinical Support Department of Physical Medicine and Rehabilitation in [place], [place] [address] [place] [phone] Tony Schwartz, P.A.-CAnn-Marei [address] [place] [phone] Elana Winters, P.TAnn-Marie [address] [place] [phone] Fibromyalgia (Primary Dx); Pain Low Back Unspecified [...] How often do you attend chur or religion services? 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 - 01/17/2024 12:45 PM CDT Physical Therapy Outpatient Treatment Note SUBJECTIVE Patient's [...] Next Certification Date: 02/14/2024 Epic Visit Count: 48 Precautions Other Precautions: COPD, osteoporotic, history of [...] follow-up appointment for physical therapy. Patient reports no significant change today. She realized she had blood on her shirt, but then figured out she had attempted to put in an earring in her left ear and realized she somehow had scratched her ear and neckand the blood was running onto her shirt. Patient reports she is doing well today with her breathing, but her neck and back continue to be painful. OBJECTIVE Pain: Not formally rated today. 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 Neck Pain Disability Index (NDI) Neck [...] breathing with patient talking during manual therapy with using supplemental oxygen and portable unit's battery indicates almost .Patient continues to demonstrate progressive forward scoliosis of the thoracic region in elevated [...] increased tolerance gentle static grade to hold 5 x 10 seconds each. In addition manual [...] a superior to inferior direction to stabilize. Home Exercise Program/Education: Patient has prior home [...] mobility. Patient verbalizes she remembers the exercises. [employer]: [email or web address] Code: [email or web address] Patient reports fair HEP compliance. Patient reports she forgets to perform them, but indicates when she does do them, they do help. Assessment Clinical Impression: Patient returns to physical therapy today with ongoing symptoms in her back and neck region that continue to limit her. Patient continues to demonstrate progressive kyphosis and scoliosis impacting patient's breathing. Patient demonstrate stability with her breathing today. Patient's symptoms consistent with her chronic pain and progressive kyphosis. Patient remains limited with thoracic and cervical region. While she verbally indicates she feels better, [...] as able to maintain her general strength. Reviewed use of 4WW again and encourage patient to trial and use to transport her portable oxygen tank. Time Spent with Patient Therapeutic Interventions Manual Therapy (min): 40 min Time Tracking Total Timed Units (min): 40 min Total Treatment Time (min): 40 min documented in this encounter Plan of Treatment Upcoming Encounters Date Type Department Care Team (Late st Contact Info) Description 03/10/2024 9:15 AM CDT Clinical Support Department of Physical Medicine and Rehabilitation in [address] [phone] Rod Collins M.D. [address] [place] [phone] Elana Winters P, P.T. [address] [place] [phone] 03/17/2024 9:15 AM CDT Clinical Support Department of Physical Medicine and Rehabilitation in [place] [address] [place] [address] Rod Collins M.D. [address] [place] [phone] Elana Winters, P.T. [address] [place] [phone] 03/24/2024 12:45 PM CDT Clinical Support Department of Physical Medicine and Rehabilitation in [address] [phone] Rod Collins M.D. [address] [place] [phone] Elana Winters, P.T. [address] [place] [phone] 03/31/2024 12:45 PM CDT Clinical Support Department of Physical Medicine and Rehabilitation in [place] [address] [place] [address] Rod Collins M.D. [address] [place] [phone] Elana Winters, P.T. [address] [place] [phone] 04/07/2024 12:45 PM CDT Clinical Support Department of Physical Medicine and Rehabilitation in [address] [place] [address] Rod Collins M.D. [address] [place] [phone] Elana Winters P, P.T. [address] [place] [phone] 04/14/2024 12:45 PM CDT Clinical Support Department of Physical Medicine and Rehabilitation in [place], [place] [address] [place] [address] Rod Collins M.D. [address] [place] [phone] Elana Winters, P.T. [address] [place] [phone] 04/21/2024 12:45 PM CDT Clinical Support Department of Physical Medicine and Rehabilitation in [place], [place] [address] [place] [address] Rod Collins M.D. [address] [place] [phone] Elana Winters, P.T. [address] [place] [phone] 04/28/2024 12:45 PM CDT Clinical Support Department of Physical Medicine and Rehabilitation in [place], [place] [address] [place] [address] Rod Collins M.D. [address] [place] [phone] Elana Winters, P.T. 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 [address] [place] [phone] PCP - General Family Medicine 09/08/21 documented as of this encounter
--- OUTSIDE RECORDS SUMMARY | 2024-03-06 09:47 | XMS_ITS | Encounter Summary ---
Author Organization [facility] Address [address] [place] [address] Care Team Providers Care Lubrication Worker Name Role Phone Erinn Reina M.D. Primary Care Provider Encounter Details Date Type Department Care Team (Late st Contact Info) Description 02/01/2024 Orders Only Division of Endocrinology in [place], [place] [address] [place] [phone] Rod Collins M.D. [address] [place] [phone] Anemia Iron Deficiency (Primary Dx); Osteoporosis Social History Tobacco Use Types Packs/Day Years [...] often do you attend chur ch or faith services? 1 to 4 times per year 03/05/2022 Do you belong to any clubs o r organizations such as sikhism groups, unions, fraternal or athletic groups, or [...] your living situation today? I have a [facility] place to live 04/10/2023 Education Answer Date Recorded What is the highest level of school you have completed or the highest degree you have received? 12th grade 04/14/2019 Sex and Gender Information Value Date Recorded Sex Assigned at Female 10/24/2023 10:51 PM BAG HANGER Gender Identity Female 02/10/2019 11:51 AM CDT Sexual Orientation Straight 02/10/2019 11 :51 AM CDT documented as of this encounter Plan of Treatment Upcoming Encounters Date Type Department Care Team (Late st Contact Info) Description 03/10/2024 9:15 AM CDT Clinical Support Department of Physical Medicine and Rehabilitation in [place], [place] [address] [place] [address] Rod Collins M.D. [address] [place] [address] Elana Winters, P.T. [address] [place] [address] 03/17/2024 9:15 AM CDT Clinical Support Department of Physical Medicine and Rehabilitation in [place], [place] [address] [place] [address] Rod Collins M.D. [address] [place] [phone] Elana Winters, P.T. [facility] [place] [address] 03/24/2024 12:45 PM CDT Clinical Support Department of Physical Medicine and Rehabilitation in [place], [place] [address] [place] [address] Rod Collins M.D. [address] [place] [phone] Elana Winters, P.T. [address] [place] [phone] 03/31/2024 12:45 PM CDT Clinical Support Department of Physical Medicine and Rehabilitation in [place], [place] [address] [place] [address] Rod Collins M.D. [address] [place] [phone] Elana Winters P, P.T. [address] [place] [phone] 04/07/2024 12:45 PM CDT Clinical Support Department of Physical Medicine and Rehabilitation in [place], [place] [address] [place] [address] Rod Collins M.D. [address] [place] [phone] Elana Winters, P.T. [address] [place] [phone] 04/14/2024 12:45 PM CDT Clinical Support Department of Physical Medicine and Rehabilitation in [place], [place] [address] [place] [address] Rod Collins M.D. [address] [place] [phone] Elana Winters P, P.T. [address] [place] [phone] 04/21/2024 12:45 PM CDT Clinical Support Department of Physical Medicine and Rehabilitation in [place], [place] [address] [place] [address] Rod Collins M.D. [address] [place] [phone] Elana Winters, P.T. [address] [place] [phone] 04/28/2024 12:45 PM CDT Clinical Support Department of Physical Medicine and Rehabilitation in [place], [place] [address] [place] [address] Rod Collins M.D. [address] [place] [phone] Elana Winters P, P.T. [address] [place] [phone] documented as of this encounter Visit Diagnoses Diagnosis Anemia Iron Deficiency- Primary Osteoporosis documented in this encounter Additional Health Concerns Assessment Noted Time PHQ-9 Depression Total Score: 6 08/15/20 22 2:06 AM BAG HANGER documented as of this encounter Care Teams Lubrication Worker Relationship Specialty Start Date End Date Erinn Reina M.D. [address] [place] [phone] PCP - General Family Medicine 09/08/21 documented as of this encounter
--- OUTSIDE RECORDS SUMMARY | 2024-03-06 09:47 | XMS_ITS | Encounter Summary ---
Author Organization [facility] Address [address] [place] [address] Care Team Providers Care Measurement Supervisor Name Role Phone Erinn Reina M.D. Primary Care Provider [phone] Reason for Referral * Outpatient (Routine) - Authorized Specialty Diagnoses / Procedures Referred By Contac t Referred To Contact Diagnoses Fracture Vertebra Compression Thoracic Closed Initial (HCC) Osteoporosis Procedures BMD Vertebral Fracture Assessment Rod Clolins M.D. [address] [place] [address] [facility] Referral ID Status Reason Start Date Expiration Date V isits Requested Visits Authorized [id number] Authorized 01/28/2024 01/27/2025 1 1 * Outpatient (Routine) - Authorized Specialty Diagnoses / Procedures Referred By Contac t Referred To Contact Diagnoses Fracture Vertebra Compression Thoracic Closed Initial (HCC) Osteoporosis Procedures BMD Bone Density Spine Hips Rod Collins M.D. [address] [place] [address] [facility] Referral ID Status Reason Start Date Expiration Date V isits Requested Visits Authorized [id number] Authorized 01/28/2024 01/27/2025 1 1 * Outpatient (Routine) - Authorized Specialty Diagnoses / Procedures Referred By Contac t Referred To Contact Endocrinology Diagnoses Fracture Vertebra Compression Thoracic Closed Initial (HCC) Osteoporosis Rod Collins M.D. [address] [place] [phone] [facility] Referral ID Status Reason Start Date Expiration Date V isits Requested Visits Authorized [id number] Authorized 01/28/2024 07/29/2025 1 1 Scheduling Instructions Fellow or bone SERA * Specialty Diagnoses / Procedures Referred By Contson t Referred To Contact Rod Collins M.D. [address] [place] [phone] [facility] Referral ID Status Reason Start Date Expiration Date Visits Re quested Visits Authorized Scheduling Instructions Schedule at the end of the itinerary. * Specialty Diagnoses / Procedures Referred By Osorio t Referred To Contact Rod Collins M.D. [address] [place] [phone] [facility] Referral ID Status Reason Start Date Expiration Date Visits Re quested Visits Authorized Scheduling Instructions Schedule after the provider consult and before the Healthy Living orders and session 2 education. * Outpatient (Routine) - Authorized Specialty Diagnoses / Procedures Referred By Contac t Referred To Contact Integrative Medicine Diagnoses Pain Back Fracture Vertebra Compression Thoracic Closed Initial (HCC) Rod Collins M.D. [address] [place] [phone] [facility] Referral ID Status Reason Start Date Expiration Date V isits Requested Visits Authorized [id number] Authorized 01/28/2024 07/29/2025 1 1 Scheduling Instructions Ideally schedule after RN Education Session 1 and before RN Education Session 2. If Stress schedules are full, okay to schedule after RN Education Session 2. * Specialty Diagnoses / Procedures Referred By Contson t Referred To Contact Rod Collins M.D. [address] [place] [phone] [facility] Referral ID Status Reason Start Date Expiration Date Visits Re quested Visits Authorized Scheduling Instructions Schedule after RN Education Session 1 and before RN Education Session 2. * Physical Therapy (Routine) - Authorized Specialty Diagnoses / Procedures Referred By Contac t Referred To Contact Diagnoses Pain Back Fracture Vertebra Compression Thoracic Closed Initial (HCC) Procedures Healthy Living Program - Physical Therapy (Clinic) Rod Collins M.D. [address] [place] [phone] [facility] Referral ID Status Reason Start Date Expiration Date V isits Requested Visits Authorized [id number] Authorized 01/28/2024 01/27/2025 99 99 * Specialty Diagnoses / Procedures Referred By Osorio t Referred To Contact Rod Collins M.D. [address] [place] [phone] [facility] Referral ID Status Reason Start Date Expiration Date Visits Re quested Visits Authorized Scheduling Instructions Schedule after RN Education Session 1 and before RN Education Session 2. * Specialty Diagnoses / Procedures Referred By Osorio t Referred To Contact Rod Collins M.D. [address] [place] [phone] Referral ID Status Reason Start Date Expiration Date Visits Re quested Visits Authorized * Outpatient (Routine) - Authorized Specialty Diagnoses / Procedures Referred By Contac t Referred To Contact Integrative Medicine Diagnoses Pain Back Fracture Vertebra Compression Thoracic Closed Initial (HCC) Rod Collins M.D. [address] [place] [phone] [facility] Referral ID Status Reason Start Date Expiration Date V isits Requested Visits Authorized [id number] Authorized 01/28/2024 07/29/2025 1 1 Reason for Visit * Outpatient (Routine) - Closed Specialty Diagnoses / Procedures Referred By Osorio guevara Referred To Contact Endocrinology Diagnoses Pain Back Fracture Vertebra Compression Thoracic Closed Initial (HCC) Jesus Feng APRN, C.N.P. [address] [place] [phone] [facility] Referral ID Status Reason Start Date Expiration Date Visits Re quested Visits Authorized [id number] Closed 10/28/2023 04/28/2025 1 1 Encounter Details Date Type Department Care Team (Latest Contact Info) Description 01/28/2024 9:00 AM CDT Comprehensive Visit Division of Endocrinology in [place], [place] [address] [place] [phone] Jesus Feng APRN, C.N.P. [address] [place] [phone] Rod Collins M.D. [address] [place] [phone] Osteoporosis (Primary Dx); Pain Back; Fracture Vertebra Compression Thoracic Closed Initial (HCC) Social History Tobacco Use Types Packs/Day Years [...] How often do you attend chur or caodaism services? 1 to 4 times [...] Answer Date Recorded PHQ-2 Score 1 08/15/2022 [facility] - Occupational Stress [...] your living situation today? I have a [facility] place to live 04/10/2023 Education Answer Date Recorded What is the highest level of school you have completed or the highest degree you have received? 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 - 01/28/2024 9:00 AM CDT SUBJECTIVE Referring Provider: Jesus Feng APRN C.N.PAnn-Marie Chief Complaint: Osteoporosis History of Present Illness: Marty Rivera is a 78 y.o. female with multiple comorbidities including heart failure, pulmonary hypertension, COPD (Requiring continuous O2 per cannula), HLD, right bundle branch block, ascending aortic dilation, and fibromyalgia. She is presenting today for evaluation of osteoporosis. She was diagnosed with osteoporosis around reportedly in the setting of abnormal BMD on DXA screening. The details around the diagnosis and initial management are unclear but it appears like she was treated with fosamax for 5 to 10 years after which she has not been on any other osteoporosis therapies. While she is not aware of any fragility fractures, her spine Xrays from 08/2023 demonstrated multiple vertebral fractures including T4, T5, T9 and T12. She is not aware of additional fractures of herwrists or hips. Risk Factors: Low bone density risk factors include: amenorrhea , tobacco use, and no history of: kidney stones ,glucocorticoid use, major weight loss , immobility, or family history of fragility fractures Fall Risk: Falls in the past year: Yes - 07/2023, no associated trama. Risk factors for falls include: balance problems, abnormal gait, and ambulation with use of assistive devices . Has a 24 hour caregiver. Has a prescription for a cane and a wheelchair but she has notgotten them. Menstrual history: Menopause at age 50s. History of hormone replacement: No Calcium intake: Not on calcium supplementation. Lactose intolerance. Limited dairy intake. Vitamin D intake: Has been on over the counter vitamin D for the last 3 months. Unclear dose. Her last vitamin D level was 14 in 10/30/2023. Exercise: Limited. Doing physical therapy regularly. Bone mineral density: Date: 11/01/2023 Left Hip: Femur Neck: BMD = 0.509 g/cm2 T-score = -3.8 Z-score = -1.2 Total Hip: BMD = 0.462 g/cm2 T-score = -4.3 Z-score = -1.9 Right Hip: Femur Neck: BMD = 0.470 g/cm2 T-score = -4.1 Z-score = -1.5 Total Hip: BMD = 0.494 g/cm2 T-score = -4.1 Z-score = -1.6 DX Spine: In the thoracic spine, there is levocurvature with apex in the mid thoracic spine. Compression fractures of the T4, T5, T9 and T12 vertebral bodies are better demonstrated on the recent CT. There is exaggeration of the typical thoracic kyphosis. An aortobiiliac stent graft is noted with renal, celiac and superior mesenteric artery stents. Calcified atherosclerosis projects over the right lung apex. In the lumbar spine, there is grade 1 anterolisthesis L5 on S1. Moderate multilevel degenerative disc disease most pronounced L4-L5. Multilevel facet osteoarthritis most pronounced and mild at L5-S1.No compression fracture. OBJECTIVE Vitals: Ht 152.8 cm BMI 18.76 kg/m?? Physical Exam: GENERAL: Alert. No acute distress. SPINE: tender to palpation of the spine. Marked kyphosis. HIPS: Symmetric bilateral hips MUSCLE STRENGTH: No pronator drift. All major muscles groups of the bilateral upper and lower limbshave decreased bulk and strength. GAIT: Decreased sitting and standing balance. [id number] with assistance Labs: Lab Results Component Value Date CALCIUM 9.5 01/28/2024 LABPHOS 3.2 10/30/2023 ALKPHOS 84 01/28/2024 CREATININE 0.83 01/28/2024 EGFR 72 01/28/2024 MG 2.5 (H) 05/04/2019 TSH 4.4 (H) 01/28/2024 FREET4 1.1 12/11/2022 ASSESSMENT / PLAN #1 Osteoporosis with several vertebral compression fractures In summary, this is a 78 years old female with multiple comorbidities who has osteoporosis since atleast the 1999s at which time she received a course of fosamax. For at least the last 10 years she has not received any osteoporosis therapy. Unfortunately she has a worst T score of -4.3 at the hipsand several vertebral compression fractures (T4, T5. T9 and T12). Because of this, and given the high risk of further fragility fractures, she would benefit from anabolic therapy with evenity at thistime (No known history of CO or stroke). We will plan on doing evenity monthly for the next year after which we will give her a dose of Reclast to prevent bone loss upon anabolic completion. Since she was noted to have low vitamin D back in October, we will hold on scheduling evenity untilwe have evidence that the vitamin D level has normalized. She has been on supplementation for the last 2-3 months. We will recheck the level today and define whether further adjustments to her regimen are needed or if evenity can be scheduled. In addition, we will start her on calcium citrate 950 mg daily. Otherwise, she has been doing physical therapy and will continue to do so for the time being. Return: 1 year with fellow or bone SERA. DXA scan, VFA, GFR, calcium and vitamin D. Rod Perales MD, PGY 6 Endocrinology Fellow documented in this encounter Plan of Treatment Upcoming Encounters Date Type Department Care Team (Late st Contact Info) Description 03/10/2024 9:15 AM CDT Clinical Support Department of Physical Medicine and Rehabilitation in [place] [address] [place] [address] Rod Collins M.D. [address] [place] [phone] Elana Winters P, P.T. [address] [place] [phone] 03/17/2024 9:15 AM CDT Clinical Support Department of Physical Medicine and Rehabilitation in [place] [address] [place] [address] Rod Collins M.D. [address] [place] [phone] Elana Winters P, P.T. [address] [place] [phone] 03/24/2024 12:45 PM CDT Clinical Support Department of Physical Medicine and Rehabilitation in [place] [address] [place] [address] Rod Collins M.D. [address] [place] [phone] Elana Winters P, P.T. [facility] [place] [phone] 03/31/2024 12:45 PM CDT Clinical Support Department of Physical Medicine and Rehabilitation in [place], [place] [address] [place] [address] Rod Collins M.D. [address] [place] [phone] Elana Winters, P.T. [address] [place] [phone] 04/07/2024 12:45 PM CDT Clinical Support Department of Physical Medicine and Rehabilitation in [place], [place] [address] [place] [address] Rod Collins M.D. [address] [place] [phone] Elana Winters P, P.T. [address] [place] [phone] 04/14/2024 12:45 PM CDT Clinical Support Department of Physical Medicine and Rehabilitation in [place], [place] [address] [place] [address] Rod Collins M.D. [address] [place] [phone] Elana Winters, P.[place]. [place] [phone] 04/21/2024 12:45 PM CDT Clinical Support Department of Physical Medicine and Rehabilitation in [place], [place] [address] [place] [address] Rod Collins M.D. [address] [place] [phone] Elana Winters P, P.T. [address] [place] [phone] 04/28/2024 12:45 PM CDT Clinical Support Department of Physical Medicine and Rehabilitation in [place], [place] [address] [place] [address] Rod Collins M.D. [address] [place] [address] Elana Winters P, P.T. [address] [place] [phone] Scheduled Orders Name Type Priority Associated Diagnoses Orde r Schedule BMD Bone Density Spine Hips Imaging RAD - Routine (most inpatients and all outpatients) Fracture Vertebra Compression Thoracic Closed Initial (HCC) Osteoporosis Expected: 01/27/2025, Expires: 04/28/2025 BMD Vertebral Fracture Assessment Imaging RAD - Routine (most inpatients and all outpatients) Fracture Vertebra Compression Thoracic Closed Initial (HCC) Osteoporosis Expected: 01/27/2025, Expires: 04/28/2025 Calcium, Total Lab Routine Fracture Vertebra Compression Thoracic Closed Initial (HCC) Osteoporosis Expected: 01/27/2025, Expires: 04/28/2025 Creatinine with Estimated GFR Lab Routine Fracture Vertebra Compression Thoracic Closed Initial (HCC) Osteoporosis Expected: 01/27/2025, Expires: 04/28/2025 25-Hydroxyvitamin D2 and D3 Lab Routine Fracture Vertebra Compression Thoracic Closed Initial (HCC) Osteoporosis Expected: 01/27/2025, Expires: 04/28/2025 Scheduled Referrals Name Type Priority Associated Diagnoses Order Schedule Integrative Medicine - Fibromyalgia treatment program consult (clinic) Outpatient Referral Routine Pain Back Fracture Vertebra Compression Thoracic Closed Initial (HCC) Expected: 01/28/2024, Expires: 04/28/2025 Fibromyalgia self-guided eLearning Outpatient Referral Routine Pain Back Fracture Vertebra Compression Thoracic Closed Initial (HCC) Ordered: 01/28/2024 Healthy Living Program - Initial wellness coaching (clinic) Outpatient Referral Routine Pain Back Fracture Vertebra Compression Thoracic Closed Initial (HCC) Expected: 01/28/2024, Expires: 04/28/2025 Healthy Living Program - Sleep/Insomnia Management (Education Visit) Outpatient Referral Routine Pain Back Fracture Vertebra Compression Thoracic Closed Initial (HCC) Expected: 01/28/2024, Expires: 04/28/2025 Integrative Medicine - Stress management consult (clinic) Outpatient Referral Routine Pain Back Fracture Vertebra Compression Thoracic Closed Initial (HCC) Expected: 01/28/2024, Expires: 04/28/2025 Integrative Medicine - Fibromyalgia and Fatigue Group Education Outpatient Referral Routine Pain Back Fracture Vertebra Compression Thoracic Closed Initial (HCC) Expected: 01/28/2024, Expires: 04/28/2025 Integrative Medicine - Fibromyalgia and Fatigue Group Education Outpatient Referral Routine Pain Back Fracture Vertebra Compression Thoracic Closed Initial (HCC) Expected: 01/28/2024, Expires: 04/28/2025 Endocrinology office visit (clinic) Outpatient Referral Routine Fracture Vertebra Compression Thoracic Closed Initial (HCC) Osteoporosis Expected: 01/27/2025, Expires: 04/28/2025 documented as of this encounter Results * Quantitative M-protein Study (01/28/2024 10:16 AM CDT) Pathologist [facility] Immunoglobulin A (IgA), S 304 61 - [...] developed and its performance characteristics determined by [facility] in a manner consistent with CLIA requirements. This test has not been cleared or approved by the U.S. Food and Drug Administration. Blood (Blood, Venous) 01/28/2024 10:16 AM CDT 01/28/2024 2:02 PM CDT Narrative [facility] - 01/29/2024 12:53 PM CDT Specimen Information: Specimen ID: [id number] Specimen Type: Blood Specimen Collection Start Date: 01/28/2024 10:16 AM Specimen Received Date: 01/28/2024 ??2:02 PM Specimen ID: [id number] Specimen Type: Blood Specimen Collection Start Date: 01/28/2024 10:16 AM Specimen Received Date: 01/28/2024 ??1:55 PM Rod Perales M.D. LAB BLOOD ADD-ON [facility] [address] [place] [address] [facility] [address] [place], [place] [phone] [place] [address] [address] [facility] [place] [address] * Celiac Disease Serology [place] (01/28/2024 10:16 AM CDT) Pathologist [facility] Immunoglobulin A (IgA), S 304 61 - 356 mg/dL 01/28/2024 2:56 PM CDT [facility] Celiac Disease Interpretation See Comment: Negative serology. Celiac disease unlikely. However, approximately 10% of patients with celiac disease are seronegative. Also, patients who are already adhering to a gluten-free diet may be seronegative. If celiac disease is highly clinically suspected, consider HLA-DQ typing. 01/28/2024 9:15 PM CDT [facility] Blood (Blood, Venous) 01/28/2024 10:16 AM CDT 01/28/2024 2:02 PM CDT Narrative [facility] - 01/28/2024 9:15 PM CDT Specimen Information: Specimen ID: [id number] Specimen Type: Blood Specimen Collection Start Date: 01/28/2024 10:16 AM Specimen Received Date: 01/28/2024 ??2:02 PM Specimen ID: [id number] Specimen Type: Blood Specimen Collection Start Date: 01/28/2024 10:16 AM Specimen Received Date: 01/28/2024 ??2:00 PM Rod Perales M.D. LAB BLOOD ADD-ON [facility] [address] [place] [address] [facility] [address] [place] [address] [place] [phone] [address] [place] [address] * Cortisol (01/28/2024 10:16 AM CDT) Pathologist [facility] Cortisol, Random, S 12 mcg/dL 01/28/2024 11:09 AM CDT [facility] Comment: ----REFERENCE VALUE---- AM ([id number]): 4.8-20 PM ([phone]): 2.5-12 Blood (Blood, Venous) 01/28/2024 10:16 AM CDT 01/28/2024 10:42 AM CDT Rod Perales M.D. LAB BLOOD ADD-ON Performing Organization Address City/[facility]/ZIP Co de Phone Number [facility] [address] [place] [address], [facility] DTL [facility] [address] [place] [address] * Rheumatoid Factor (01/28/2024 10:16 AM CDT) [facility] Rheumatoid Factor, S <15 <15 IU/mL 01/28/2024 3:40 PM CDT [facility] Blood (Blood, Venous) 01/28/2024 10:16 AM CDT 01/28/2024 3:01 PM CDT Rod Perales M.D. LAB BLOOD ADD-ON [facility] [address] [place] [address] [facility] [address] [place] [address] * CK (Creatine Kinase) (01/28/2024 10:16 AM CDT) Pathologist [facility] Creatine Kinase (CK), S 116 26 - 192 U/L 01/28/2024 11:09 AM CDT D[facility] Blood (Blood, Venous) 01/28/2024 10:16 AM CDT 01/28/2024 10:42 AM CDT Rod Perales M.D. LAB BLOOD ADD-ON Performing Organization Address City/[facility]/ZIP Co de Phone Number [facility] [address] [place] [address] * (ABNORMAL) Thyroid Function [place] (01/28/2024 10:16 AM CDT) [facility] TSH, Sensitive 4.4(H) 0.3 - 4.2 mIU/L 01/28/2024 11:09 AM CDT [facility] Blood (Blood, Venous) 01/28/2024 10:16 AM CDT 01/28/2024 10:42 AM CDT Rod Perales M.D. LAB BLOOD ADD-ON [facility] [address] [place] [address] * CRP (C-Reactive Protein) (01/28/2024 10:16 AM CDT) Pathologist [facility] C-Reactive Protein (CRP), S <3.0 <5.0 mg/L 01/28/2024 11:09 AM CDT [facility] Blood (Blood, Venous) 01/28/2024 10:16 AM CDT 01/28/2024 10:42 AM CDT Rod Perales M.D. LAB BLOOD ADD-ON [facility] [address] [place], [place] [phone] [place] [address] [address] [place] [address] * Sedimentation Rate (01/28/2024 10:16 AM CDT) Sedimentation Rate, B 8 3 - 28 mm/h 01/28/2024 11:48 AM CDT [facility] Blood (Blood, Venous) 01/28/2024 10:16 AM CDT 01/28/2024 10:30 AM CDT Rod Perales M.D. LAB BLOOD ADD-ON [facility] [address] [place] [address], [facility] [address] [place] [address] * Dehydroepiandrosterone Sulfate (DHEA-S) (01/28/2024 10:16 AM CDT) Dehydroepiandrosterone Sulfate, S 72 5.3 - 124 mcg/dL 01/28/2024 3:53 PM CDT [facility] Blood (Blood, Venous) 01/28/2024 10:16 AM CDT 01/28/2024 2:58 PM CDT Rod Perales M.D. LAB BLOOD ADD-ON [facility] [address] [place] [address] [facility] [address] [place] [address] * Ferritin (01/28/2024 10:16 AM CDT) [facility] Ferritin, S 262 11 - 328 mcg/L 01/28/2024 11:09 AM CDT DT Blood (Blood, Venous) 01/28/2024 10:16 AM CDT 01/28/2024 10:42 AM CDT Rod Perales M.D. LAB BLOOD ADD-ON [facility] [address] [place] [address], [facility] [address] [place] [address] * Connective Tissue Diseases [place] (01/28/2024 10:16 AM CDT) [facility] Antinuclear Ab, S 0.1 <=1.0 (Negative ) U 01/28/2024 7:56 PM CDT [facility] Comment: ----ADDITIONAL INFORMATION---- Method: Enzyme-linked immunoassay using HEp-2 nuclear extract supplemented with purified antigens. Cyclic Citrullinated Peptide Ab, S <15.6 <20.0 (Negative ) U 01/28/2024 6:40 PM CDT [facility] Interpretation SEE COMMENT 7:56 PM CDT [facility] Comment: Tests for antibodies to dsDNA and DERIC antigens are not performed automatically unless the TERRI result is > or = 3.0 U. ??Studies performed at [facility] indicate that positive TERRI results <3.0 U are rarely accompanied by positive second order tests. Blood (Blood, Venous) 01/28/2024 10:16 AM CDT 01/28/2024 1:59 PM CDT Rod Perales M.D. LAB BLOOD ADD-ON [facility] [address] [place] [address] [facility] [address] [place] [address] * (ABNORMAL) Comprehensive Metabolic Panel (01/28/2024 10:16 AM CDT) [facility] Potassium, S 4.4 3.6 - 5.2 mmol/L [...] CDT Rod Perales M.D. LAB BLOOD ADD-ON [facility] [address] [place] [address], [facility] DTL [facility] [address] [place] [address] * (ABNORMAL) CBC with Differential, Blood (01/28/2024 10:16 AM CDT) Hemoglobin 12.5 11.6 - 15.0 g/dL 01/28/2024 [...] M.D. LAB BLOOD ADD-ON Performing Organization Address City/[facility] Co de Phone Number [facility] [address] [place] [address], [facility] DTL [facility] [address] [place] [address] [facility] [address] [place] [address] * (ABNORMAL) 25-Hydroxyvitamin D2 and D3 (01/28/2024 10:16 AM CDT) [facility] 25-Hydroxy D2 <4.0 ng/mL 01/30/2024 9:01 AM CDT [facility] 25-Hydroxy D3 18 ng/mL 01/30/2024 9:01 AM CDT [facility] 25-Hydroxy D Total 18(L) ng/mL 2023 9:01 AM CDT [facility] Comment: Interpretation: 10-19 ng/mL (mild to moderate deficiency) ----REFERENCE VALUE---- 25-HYDROXY D TOTAL (D2+D3) Optimum levels in the healthy population are 20-50. ----ADDITIONAL INFORMATION---- This test was developed and its performance characteristics determined by [facility] in a manner consistent with CLIA requirements. This test has not been cleared or approved by the U.S. Food and Drug Administration. Blood (Blood, Venous) 01/28/2024 10:16 AM CDT 01/28/2024 1:32 PM CDT Rod Perales M.D. LAB BLOOD ADD-ON Performing Organization Address City/[facility]/ZIP Co de Phone Number [facility] [address] [place] [address] [facility] [address] [place] [address] 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 [address] [place] [address] [place] [phone] PCP - General Family Medicine 09/08/21 documented as of this encounter
--- OUTSIDE RECORDS SUMMARY | 2024-03-06 09:47 | XMS_ITS | Encounter Summary ---
Author Organization [facility] Address [address] [place] [address] Care Team Providers Care Marketing Sales Supervisor Name Role Phone Erinn Reina M.D. Primary Care Provider [phone] Reason for Visit * Physical Therapy (Routine) - Canceled Specialty Diagnoses / Procedures Referred By Osorio guevara Referred To Contact Diagnoses Fibromyalgia Pain Low Back Unspecified Procedures PT Ongoing treatment Tony Schwartz P.AAnn-Marie-CAnn-Marie [address] [place] [address] [facility] Region Referral ID Status Reason Start Date Expiration Date V isits Requested Visits Authorized [id number] Canceled 06/07/2023 06/06/2024 99 99 Encounter Details Date Type Department Care Team (Latest Contact Info) Description 01/06/2024 12:30 PM CDT Clinical Support Department of Physical Medicine and Rehabilitation in [place], [place] [address] [place] [phone] Tony Schwartz, P.A.-CAnn-Marie [address] [place] [phone] Elana Winters, P.TAn-nMarie [address] [place] [phone] Fibromyalgia; Pain Low Back Unspecified Social History Tobacco [...] How often do you attend chur or cheondoism services? 1 to 4 times per year 03/05/2022 Do you belong to any clubs o r organizations such as religious groups, unions, fraternal or athletic groups, or [...] Answer Date Recorded PHQ-2 Score 1 08/15/2022 [facility] - Occupational Stress Questionnaire Answer Date [...] Sex Assigned at Female 10/24/2023 10:51 PM MS ACCESS DATABASE DEVELOPER Gender Identity Female 02/10/2019 11:51 AM CDT Sexual Orientation Straight 02/10/2019 11 :51 AM CDT documented as of this encounter Progress Notes * Elana Winters, P.Sharifa. - 01/06/2024 12:30 PM CDT Physical Therapy Outpatient Treatment Note [...] Next Certification Date: 02/14/2024 Epic Visit Count: 47 Precautions Other Precautions: COPD, osteoporotic, history of [...] appointment for physical therapy. Patient reports she did not need her portable oxygen on while commuting to her appointment today, grossly 35 minutes.Patient reports she has a scheduled appointment with her wine steward/stewardess this week. Patient reports she is having a bad day in general. She reports she had relief following her last appointment, but is unable to verbalize how long her relief lasted. Patient reports her back is really sore today. OBJECTIVE Pain: Not formally rated today. 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 Neck Pain Disability Index (NDI) Neck Disability Index Raw Score: 21 Neck Disability Index Percent: 42 % 5/11/23: Neck Disability Index Raw Score: 19 Neck [...] Increased symptoms left greater than right paraspinals T2-T8, and Left greater then right throughout her [...] scaption, external rotation with passive scapular retraction to stabilize. Home Exercise Program/Education: Patient has [...] mobility. Patient verbalizes she remembers the exercises. MobileDevHQ: [email or web address] [email or web address] [email or web address] Access Code: [email or web address] Patient reports fair HEP compliance. Patient reports she forgets to perform them, but indicates when she does do them, they do help. Assessment Clinical Impression: Patient returns to physical therapy today with ongoing symptoms in her back and neck region that continue to limit her. Patient continues to demonstrate progressive kyphosis and scoliosis impacting patient's breathing. Patient demonstrate challenges today with her breathing tolerating room air throughout her treatment session. Patient's symptoms consistent with her chronic pain [...] time to maintain overall mobility of her spineand chest wall, cervical region, and shoulders to [...] with Patient Therapeutic Interventions Manual Therapy (min): 38 min Therapeutic Exercise (min): 6 min Time Tracking Total Timed Units (min): 44 min Total Treatment Time (min): 44 min documented in this encounter Plan of Treatment Upcoming Encounters Date Type Department Care Team (Late st Contact Info) Description 03/10/2024 9:15 AM CDT Clinical Support Department of Physical Medicine and Rehabilitation in [address] [phone] Rod Collins M.D. [address] [place] [phone] Elana Winters P, P.T. [address] [place] [address] 03/17/2024 9:15 AM CDT Clinical Support Department of Physical Medicine and Rehabilitation in [place], [place] [address] [place] [address] Rod Collins M.D. [address] [place] [phone] Elana Winters, P.T. [address] [place] [phone] 03/24/2024 12:45 PM CDT Clinical Support Department of Physical Medicine and Rehabilitation in [place], [place] [address] [place] [address] Rod Collins M.D. [address] [place] [phone] Elana Winters P, P.T. [address] [place] [phone] 03/31/2024 12:45 PM CDT Clinical Support Department of Physical Medicine and Rehabilitation in [place], [place] [address] [place] [address] Rod Collins M.D. [address] [place] [phone] Elana Winters, P.T. [address] [place] [phone] 04/07/2024 12:45 PM CDT Clinical Support Department of Physical Medicine and Rehabilitation in [place], [place] [address] [place] [address] Rod Collins M.D. [address] [place] [phone] Elana Winters P, P.T. [address] [place] [address] 04/14/2024 12:45 PM CDT Clinical Support Department of Physical Medicine and Rehabilitation in [place], [place] [address] [place] [address] Rod Collins M.D. [address] [place] [phone] Elana Winters, P.T. [address] [place] [phone] 04/21/2024 12:45 PM CDT Clinical Support Department of Physical Medicine and Rehabilitation in [place], [place] [address] [place] [address] Rod Collins M.D. [address] [place] [phone] Elana Winters, P.T. [address] [place] [phone] 04/28/2024 12:45 PM CDT Clinical Support Department of Physical Medicine and Rehabilitation in [place], [place] [address] [place] [address] Rod Collins M.D. [address] [place] [phone] Elana Winters, P.T. [address] [place] [phone] documented as of this encounter Visit Diagnoses Diagnosis Fibromyalgia Pain Low Back Unspecified documented in this encounter Additional Health Concerns Assessment Noted Time PHQ-9 Depression Total Score: 6 08/15/20 22 2:06 AM MS ACCESS DATABASE DEVELOPER documented as of this encounter Care Teams Marketing Sales Supervisor Relationship Specialty Start Date End Date Erinn Reina M.D. [address] [place] [phone] PCP - General Family Medicine 09/08/21 documented as of this encounter
--- OUTSIDE RECORDS SUMMARY | 2024-03-06 09:47 | XMS_ITS | Encounter Summary ---
Author Organization [facility] Address [address] [place] [address] Care Team Providers Care Patch Finisher Name Role Phone Erinn Reina M.D. Primary Care Provider [phone] Reason for Referral * Outpatient (Routine) - Authorized Specialty Diagnoses / Procedures Referred By Osorio guevara Referred To Contact Erinn Reina M.D. [address] [place] [phone] [facility] Region Referral ID Status Reason Start Date Expiration Date V isits Requested Visits Authorized [id number] Authorized 01/07/2024 07/08/2025 1 1 Scheduling Instructions Nurse AWV Do not schedule prior to due date to ensure insurance coverage Visit: Medicare Annual Wellness Never done. * Outpatient (Routine) - Authorized Specialty Diagnoses / Procedures Referred By Osorio guevara Referred To Contact Family Medicine Erinn Reina M.D. [address] [place] [address] [facility] Region Referral ID Status Reason Start Date Expiration Date V isits Requested Visits Authorized [id number] Authorized 01/07/2024 07/08/2025 1 1 Scheduling Instructions Medicare annual provider visit/HCC gaps Do not schedule prior to due date to ensure insurance coverage Visit: Medicare Annual Wellness Never done. Encounter Details Date Type Department Care Team (Late st Contact Info) Description 01/07/2024 Orders Only [facility] PCP [facility] [place] Erinn Reina M.D. [address] [place] [address] [place] [phone] Social History Tobacco Use Types Packs/Day Years [...] How often do you attend chur or latter day services? 1 to 4 times per year 03/05/2022 Do you belong to any clubs o r organizations such as uatsdin groups, unions, fraternal or athletic groups, or [...] Answer Date Recorded PHQ-2 Score 1 08/15/2022 [facility] - Occupational Stress Questionnaire Answer Date [...] your living situation today? I have a rosy place to live 04/10/2023 Education Answer Date Recorded What is the highest level of school you have completed or the highest degree you have received? 12th grade 04/14/2019 Sex and Gender Information Value Date Recorded Sex Assigned at Female 10/24/2023 10:51 PM WORKER'S COMPENSATION CLAIMS EXAMINER Gender Identity Female 02/10/2019 11:51 AM CDT Sexual Orientation Straight 02/10/2019 11 :51 AM CDT documented as of this encounter Plan of Treatment Upcoming Encounters Date Type Department Care Team (Late st Contact Info) Description 03/10/2024 9:15 AM CDT Clinical Support Department of Physical Medicine and Rehabilitation in [place], [place] [address] [place] [address] Rod Collins M.D. [address] [place] [phone] Elana Winters P, P.T. [address] [place] [phone] 03/17/2024 9:15 AM CDT Clinical Support Department of Physical Medicine and Rehabilitation in [place], [place] [address] [place] [address] Rod Collins M.D. [address] [place] [phone] Elana Winters P, P.T. [address] [place] [address] 03/24/2024 12:45 PM CDT Clinical Support Department of Physical Medicine and Rehabilitation in [place], [place] [address] [place] [address] Rod Collins M.D. [address] [place] [phone] Elana Winters P, P.T. [address] [place] [address] 03/31/2024 12:45 PM CDT Clinical Support Department of Physical Medicine and Rehabilitation in [place], [place] [address] [place] [address] Rod Collins M.D. [address] [place] [phone] Elana Winters, P.T[address] [place] [address] 04/07/2024 12:45 PM CDT Clinical Support Department of Physical Medicine and Rehabilitation in [place], [place] [address] [place] [address] Rod Collins M.D. [address] [place] [phone] Elana Winters, P.T. [address] [place] [address] 04/14/2024 12:45 PM CDT Clinical Support Department of Physical Medicine and Rehabilitation in [place], [place] [address] [place] [address] Rod Collins M.D. [address] [place] [phone] Elana Winters, P.T. [address] [place] [phone] 04/21/2024 12:45 PM CDT Clinical Support Department of Physical Medicine and Rehabilitation in [place], [place] [address] [place] [address] Rod Collins M.D. [address] [place] [phone] Elana Winters, P.T. [address] [place] [address] 04/28/2024 12:45 PM CDT Clinical Support Department of Physical Medicine and Rehabilitation in [place], [place] [address] [place] [address] Rod Collins M.D. [address] [place] [address] Elana Winters, P.T. [address] [place] [phone] Scheduled Referrals Name Type Priority Associated Diagnoses Orde r Schedule Family Medicine office visit (clinic) Outpatient Referral Routine Expected: 02/04/2024, Expires: 07/05/2024 Primary Care nurse visit (clinic) - [facility]; Medicare Annual Wellness Outpatient Referral Routine Expected: 02/04/2024, Expires: 07/05/2024 documented as of this encounter Visit Diagnoses Not on filedocumented in this encounter Additional Health Concerns Assessment Noted Time PHQ-9 Depression Total Score: 6 08/15/20 22 2:06 AM WORKER'S COMPENSATION CLAIMS EXAMINER documented as of this encounter Care Teams Patch Finisher Relationship Specialty Start Date End Date Erinn Reina M.D. [address] [place] [address] [place] [address] PCP - General Family Medicine 09/08/21 documented as of this encounter
--- OUTSIDE RECORDS SUMMARY | 2024-03-06 09:47 | XMS_ITS | Encounter Summary ---
Author Organization [facility] Address [address] [place] [address] Care Team Providers Care Tape Deck Installer Name Role Phone Erinn Reina M.D. Primary Care Provider Encounter Details Date Type Department Care Team (Latest Contact Info) Description 01/15/2024 11:30 AM CDT - 01/15/2024 11:59 PM CDT Hospital Encounter Department of Laboratory Medicine in [place], [place] [address] [place] [address] Vitor Calle M.D. [address] [place] [phone] Dyspnea Multifactorial; Anemia Iron Deficiency Discharge Disposition: Home or Self Care Social History Tobacco Use Types Packs/Day Years [...] How often do you attend chur or episcopal services? 1 to 4 times per year 03/05/2022 Do you belong to any clubs o r organizations such as latter-day groups, unions, fraternal or athletic groups, or [...] Answer Date Recorded PHQ-2 Score 1 08/15/2022 [facility] of Occupat ional Health - Occupational Stress [...] your living situation today? I have a [facility] place to live 04/10/2023 Education Answer Date Recorded What is the highest level of school you have completed or the highest degree you have received? 12th grade 04/14/2019 Sex and Gender Information Value Date Recorded Sex Assigned at Female 10/24/2023 10:51 PM PANTRY CHEF Gender Identity Female 02/10/2019 11:51 AM CDT Sexual Orientation Straight 02/10/2019 11 :51 AM CDT documented as of this encounter Medications at Time of Discharge Medication Sig Dispensed Refills Start Date End Date acetaminophen (TYLENOL) 500 mg tablet Take 2 tablets (1,000 mg total) by mouth every 6 (six) hours as needed for pain (Purchase over the counter. First line for pain.). 05/05/[address] tablet Take 1 tablet (81 mg total) by mouth daily. 90 tablet 3 10/09/2023 10/08/2024 BEVACIZUMAB VTRE by intravitreal route. Eye injections by MD as directed DME Oxygen Inhale. DME Order Patient stated she uses 02 at night with 2L DULoxetine (CYMBALTA) [address] capsule Take 30 mg by mouth daily. 06/05/2021 fexofenadine-pseudoephe drine (JIHAN-D 24) 180-240 mg per 24 hr tablet Take 1 tablet by mouth daily as needed for allergies or rhinitis. fluticasone propionate (FLONASE) 50 mcg/actuation nasal sprayIndications:Cough Post Infectious (Cough Subacute) SHAKE LIQUID AND USE 2 SPRAYS IN EACH NOSTRIL DAILY 48 g 3 2023 fluticasone-umeclidiniu m-vilanterol (Trelegy Ellipta) 100-62.5-25 mcg/actuation inhalerIndications:Noc Analyst padmini Obstructive Pulmonary Disease Moderate (HCC) Inhale 1 puff once daily. 60 each 11 11/08/2023 ipratropium-albuteroL (DUONEB) 0.5-2.5 mg/3 mL nebulizer solution Inhale 3 mL by nebulization 4 (four) times a day as needed for wheezing or shortness of breath. 180 mL 2 02/13/2023 lidocaine (LIDODERM) 5 % Place 1 patch on the skin daily. 05/28/2023 rosuvastatin (CRESTOR) 10 mg tablet Take 1 tablet (10 mg total) by mouth daily. 90 tablet 3 10/09/2023 10/08/2024 spironolactone (ALDACTONE) 25 mg tablet Take 0.5 tablets (12.5 mg total) by mouth daily. 45 tablet 1 01/08/2024 torsemide (DEMADEX) 20 mg tablet Take 20 mg by mouth daily. 01/19/2023 Ventolin HFA 90 mcg/actuation inhalerIndications:Noc Analyst padmini Obstructive Pulmonary Disease (HCC),Dyspnea Multifactorial Inhale 2 puffs every 4 (four) hours as needed for wheezing or shortness of breath. 18 g 11 11/08/2023 11/07/2024 documented as of this encounter Plan of Treatment Upcoming Encounters Date Type Department Care Team (Late st Contact Info) Description 03/10/2024 9:15 AM CDT Clinical Support Department of Physical Medicine and Rehabilitation in [place], [place] [address] [place] [phone] Rod Collins M.D. [address] [place] [address] Elana Winters, P.T. [address] [place] [phone] 03/17/2024 9:15 AM CDT Clinical Support Department of Physical Medicine and Rehabilitation in [place], [place] [address] [place] [address] Rod Collins M.D. [address] [place] [phone] Elana Winters, P.T. [address] [place] [phone] 03/24/2024 12:45 PM CDT Clinical Support Department of Physical Medicine and Rehabilitation in [place], [place] [address] [place] [address] Rod Collins M.D. [address] [place] [address] Elana Winters, P.T. [address] [place] [phone] 03/31/2024 12:45 PM CDT Clinical Support Department of Physical Medicine and Rehabilitation in [place], [place] [address] [place] [address] Rod Collins M.D. [address] [place] [address] Elana Winters, P.T. [address] [place] [phone] 04/07/2024 12:45 PM CDT Clinical Support Department of Physical Medicine and Rehabilitation in [place], [place] [address] [place] [address] Rod Collins M.D. [address] [place] [phone] Elana Winters P, P.T. [address] [place] [phone] 04/14/2024 12:45 PM CDT Clinical Support Department of Physical Medicine and Rehabilitation in [place], [place] [address] [place] [address] Rdo Collins M.D. [address] [place] [phone] Elana Winters, P.T. [address] [place] [phone] 04/21/2024 12:45 PM CDT Clinical Support Department of Physical Medicine and Rehabilitation in [place] [address] [place] [address] Rod Collins M.D. [address] [place] [phone] Elana Winters P, P.T. [address] [place] [phone] 04/28/2024 12:45 PM CDT Clinical Support Department of Physical Medicine and Rehabilitation in [place] [address] [place] [address] Rod Collins M.D. [address] [place] [phone] Elana Winters, P.T. [address] [place] [phone] documented as of this encounter Procedures Procedure Name Priority Date/Time Associated Diagnosis Comments NT-PRO B-TYPE NATRIURETIC PEPTIDE (BNP), S Routine 01/15/2024 11:41 AM CDT Dyspnea Multifactorial IRON AND TOT IRON-BINDING CAPACITY, S/P Routine 01/15/2024 11:41 AM CDT Anemia Iron Deficiency CBC WITH DIFFERENTIAL, B Routine 01/15/2024 11:41 AM CDT Anemia Iron Deficiency SODIUM, S/P Routine 01/15/2024 11:41 AM CDT Dyspnea Multifactorial POTASSIUM, S/P Routine 01/15/2024 11:41 AM CDT Dyspnea Multifactorial FERRITIN, S Routine 01/15/2024 11:41 AM CDT Anemia Iron Deficiency CREATININE WITH EGFR, S/P Routine 01/15/2024 11:41 AM CDT Dyspnea Multifactorial documented in this encounter Results * (ABNORMAL) Iron and Total Iron-Binding Capacity [...] CDT Tony Schwartz P.A.-C. LAB BLOOD ADD-ON [facility] [address] [place] [address], [place] [facility] [address] [place] [address] * (ABNORMAL) Ferritin (01/15/2024 11:41 AM CDT) Ferritin, S 347(H) 11 - 328 mcg/L 01/15/2024 2:25 PM CDT OW Comment: Biotin has been identified by the publication director as a potential interfering substance. Higher concentrations of biotin may be found in multivitamins, hair/nail supplements, and workout supplements. If the result does not match clinical observations, repeat testing after patient refrains from the use of supplements for at least 12 hours. Blood (Blood, Venous) 01/15/2024 11:41 AM CDT 01/15/2024 1:31 PM CDT Tony Schwartz P.A.-C. LAB BLOOD ADD-ON [facility] [address], [place] [address], [place] OW[facility] in [place] [address] [place] [address] * (ABNORMAL) CBC with Differential, Blood (01/15/2024 11:41 AM CDT) Hemoglobin 12.3 11.6 - 15.0 g/dL 01/15/2024 11:57 AM CDT FB60 Hematocrit 40.0 35.5 - 44.9 % 01/15/2024 11:57 AM CDT FB60 Erythrocytes 4.16 3.92 - 5.13 x10(12)/L 01/15/2024 11:57 AM CDT FB60 MCV 96.2 78.2 - 97.9 fL 01/15/2024 11:57 AM CDT FB60 RBC Distrib Width 16.5(H) 12.2 - 16.1 % 01/15/2024 11:57 AM CDT FB60 Platelet Count 214 157 - 371 x10(9)/L 01/15/2024 11:57 AM CDT FB60 Leukocytes 6.8 3.4 - 9.6 x10(9)/L 01/15/2024 11:57 AM CDT FB60 Neutrophils 4.78 1.56 - 6.45 x10(9)/L 01/15/2024 11:57 AM CDT FB60 Lymphocytes 1.22 0.95 - 3.07 x10(9)/L 01/15/2024 11:57 AM CDT FB60 Monocytes 0.65 0.26 - 0.81 x10(9)/L 01/15/2024 11:57 AM CDT FB60 Eosinophils 0.14 0.03 - 0.48 x10(9)/L 01/15/2024 11:57 AM CDT FB60 Basophils 0.04 0.01 - 0.08 x10(9)/L 01/15/2024 11:57 AM CDT FB60 Blood (Blood, Venous) 01/15/2024 11:41 AM CDT 01/15/2024 11:42 AM CDT Tony Schwartz P.A.-C. LAB BLOOD ADD-ON Performing Organization Address [facility] Co de Phone Number [facility] [address] [place] [address], [place] FB60 [facility] in [place] [address] [place] [address] * NT-Pro B-Type Natriuretic Peptide (BNP) (01/15/2024 [...] M.D. LAB BLOOD ADD-ON Performing Organization Address City/[facility]/ZIP Co de Phone Number [facility] [address] [place] [address], [place] [facility] [place] [address] [place] [address] * Creatinine with Estimated GFR (01/15/2024 11:41 AM CDT) Creatinine 0.72 0.59 - 1.04 mg/dL 01/15/2024 2:15 PM CDT OWAT Estimated GFR (eGFR) 86 >=60 mL/min/BSA 01/15/2024 2:15 PM CDT OWAT Comment: Estimated GFR calculated using the 2020 CKD_EPI creatinine equation. Blood (Blood, Venous) 01/15/2024 11:41 AM CDT 01/15/2024 1:31 PM CDT Vitor Calle M.D. LAB BLOOD ADD-ON [facility] [address] [place] [address], [facility] in [place] [address] [place] [address] * Potassium (01/15/2024 11:41 AM CDT) Potassium, P 4.5 3.6 - 5.2 mmol/L 01/15/2024 2:15 PM CDT OWAT Blood (Blood, Venous) 01/15/2024 11:41 AM CDT 01/15/2024 1:31 PM CDT Vitor Calle M.D. LAB BLOOD ADD-ON [facility] [address] [place] [address], [facility] in [place] [address], [place] [address] * Sodium (01/15/2024 11:41 AM CDT) Sodium, P 139 135 - 145 mmol/L 01/15/2024 2:15 PM CDT OWAT Blood (Blood, Venous) 01/15/2024 11:41 AM CDT 01/15/2024 1:31 PM CDT Vitor Calle M.D. LAB BLOOD ADD-ON [facility] [address] [place] [address], [place] [facility] in [place] [address] [place] [address] documented in this encounter Visit Diagnoses Diagnosis Dyspnea Multifactorial Anemia Iron Deficiency documented in this encounter Additional Health Concerns Assessment Noted Time PHQ-9 Depression Total Score: 6 08/15/20 22 2:06 AM PANTRY CHEF documented as of this encounter Care Teams Tape Deck Installer Relationship Specialty Start Date End Date Erinn Reina M.D. [address] [place] [address] [place] [address] PCP - General Family Medicine 09/08/21 documented as of this encounter
--- OUTSIDE RECORDS SUMMARY | 2024-03-06 09:47 | XMS_ITS | Encounter Summary ---
Author Organization [facility] Address [address] [place] [address] Care Team Providers Care Stationary Engineer Apprentice Name Role Phone Erinn Reina M.D. Primary Care Provider [phone] Reason for Visit * Physical Therapy (Routine) - Canceled Specialty Diagnoses / Procedures Referred By Osorio guevara Referred To Contact Diagnoses Fibromyalgia Pain Low Back Unspecified Procedures PT Ongoing treatment Tony Schwartz P.AAnn-Marie-CAnn-Marie [address] [place] [address] [facility] Region Referral ID Status Reason Start Date Expiration Date V isits Requested Visits Authorized [id number] Canceled 06/07/2023 06/06/2024 99 99 Encounter Details Date Type Department Care Team (Latest Contact Info) Description 01/29/2024 10:45 AM CDT Clinical Support Department of Physical Medicine and Rehabilitation in [place], [place] [address] [place] [phone] Tony Schwartz, PAnn-MarieA.-CAnn-Marie [address] [place] [phone] Elana Winters, P.TAnn-Marie [address] [place] [phone] Fibromyalgia (Primary Dx); Pain Low Back Unspecified [...] How often do you attend chur or adventism services? 1 to 4 times per year 03/05/2022 Do you belong to any clubs o r organizations such as roman catholic groups, unions, fraternal or athletic groups, or [...] Answer Date Recorded PHQ-2 Score 1 08/15/2022 [facility] of Occupat ional Health - Occupational Stress [...] Sex Assigned at Female 10/24/2023 10:51 PM WORM PACKER Gender Identity Female 02/10/2019 11:51 AM CDT Sexual Orientation Straight 02/10/2019 11 :51 AM CDT documented as of this encounter Progress Notes * Elana Winters, P.Sharifa. - 01/29/2024 10:45 AM CDT Physical Therapy Outpatient Treatment Note SUBJECTIVE [...] Next Certification Date: 02/14/2024 Epic Visit Count: 49 Precautions Other Precautions: COPD, osteoporotic, history of [...] appointment for physical therapy. Patient reports she a doctor's appointment with a teacher specialist for her back yesterday. Patient will be receiving infusions for her osteoporosis. Patient found the appointment to be very beneficial and answering her questions regarding her scoliosis in her breathing. In addition patient received a new portable oxygen tank in indicates the new technology is requiring some getting used to. Patient describes different colored lights going off for different reasons while utilizing it. OBJECTIVE Pain: Not formally rated today. 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 Neck Pain Disability Index (NDI) [...] rotation Almaguer stretch was also performed bilaterally. Home Exercise Program/Education: Patient has prior home [...] mobility. Patient verbalizes she remembers the exercises. [employer]spotting: [email or web address] Access Code: [email or web address] Patient reports fair HEP [...] demonstrate erratic breathing today as observed with new oxygen portable tank and various lights and leg colors and messages throughout her appointment. Patient's symptoms consistent with her chronic pain [...] Therapy (min): 38 min Therapeutic Exercise (min): 8 min Time Tracking Total Timed Units (min): 46 min Total Treatment Time (min): 46 min documented in this encounter Plan of Treatment Upcoming Encounters Date Type Department Care Team (Late st Contact Info) Description 03/10/2024 9:15 AM CDT Clinical Support Department of Physical Medicine and Rehabilitation in [place], [place] [address] [place] [address] Rod Collins M.D. [address] [place] [phone] Elana Winters P, P.T. [address] [place] [phone] 03/17/2024 9:15 AM CDT Clinical Support Department of Physical Medicine and Rehabilitation in [place], [place] [address] [place] [address] Rod Collins M.D. [address] [place] [phone] Elana Winters, P.T. [address] [place] [phone] 03/24/2024 12:45 PM CDT Clinical Support Department of Physical Medicine and Rehabilitation in [place], [place] [address] [place] [address] Rod Collins M.D. [address] [place] [phone] Elana Winters P, P.T. [address] [place] [phone] 03/31/2024 12:45 PM CDT Clinical Support Department of Physical Medicine and Rehabilitation in [place], [place] [address] [place] [address] Rod Collins M.D. [address] [place] [phone] Elana Winters, P.T. [address] [place] [phone] 04/07/2024 12:45 PM CDT Clinical Support Department of Physical Medicine and Rehabilitation in [place], [place] [address] [place] [address] Rod Collins M.D. [address] [place] [phone] Elana Winters P, P.T. [address] [place] [phone] 04/14/2024 12:45 PM CDT Clinical Support Department of Physical Medicine and Rehabilitation in [place], [place] [address] [place] [address] Rod Collins M.D. [address] [place] [phone] Elana Winters, P.T. [address] [place] [phone] 04/21/2024 12:45 PM CDT Clinical Support Department of Physical Medicine and Rehabilitation in [place], [place] [address] [place] [address] Rod Collins M.D. [address] [place] [phone] Elana Winters P, P.T. [address] [place] [phone] 04/28/2024 12:45 PM CDT Clinical Support Department of Physical Medicine and Rehabilitation in [place], [place] [address] [place] [address] Rod Collins M.D. [address] [place] [phone] Elana Winters, P.T. [address] [place], [place] [address], [place] [address] documented as of this encounter Visit Diagnoses Diagnosis Fibromyalgia- Primary Pain Low Back Unspecified documented in this encounter Additional Health Concerns Assessment Noted Time PHQ-9 Depression Total Score: 6 08/15/20 22 2:06 AM WORM PACKER documented as of this encounter Care Teams Stationary Engineer Apprentice Relationship Specialty Start Date End Date Erinn Reina M.D. [address] [place] [address] [place], [place] [address] PCP - General Family Medicine 09/08/21 documented as of this encounter
--- OUTSIDE RECORDS SUMMARY | 2024-03-06 09:47 | XMS_ITS | Encounter Summary ---
Author Organization [facility] Address [address] [place] [address] Care Team Providers Care Business Dean Name Role Phone Erinn Reina M.D. Primary Care Provider [phone] Encounter Details Date Type Department Care Team (Late st Contact Info) Description 01/09/2024 Orders Only Department of Vascular Medicine in [place], [place] [address] [place] [address] Tony Schwartz P.A.-C. [address] [place] [phone] Anemia Iron Deficiency (Primary Dx) Social History Tobacco Use Types Packs/Day Years [...] How often do you attend chur or methodist services? 1 to 4 times per year 03/05/2022 Do you belong to any clubs o r organizations such as moravian groups, unions, fraOVIA or athletic groups, or school groups? No [...] Answer Date Recorded PHQ-2 Score 1 08/15/2022 [facility] of Occupat ionsc Health - Occupational Stress Questionnaire Answer Date [...] your living situation today? I have a [facility] place to live 04/10/2023 Education Answer Date Recorded What is the highest level of school you have completed or the highest degree you have received? 12th grade 04/14/2019 Sex and Gender Information Value Date Recorded Sex Assigned at Female 10/24/2023 10:51 PM BRICK YARD HAND Gender Identity Female 02/10/2019 11:51 AM CDT Sexual Orientation Straight 02/10/2019 11 :51 AM CDT documented as of this encounter Plan of Treatment Upcoming Encounters Date Type Department Care Team (Late st Contact Info) Description 03/10/2024 9:15 AM CDT Clinical Support Department of Physical Medicine and Rehabilitation in [place], [place] [address] [place] [address] Rod Collins M.D. [address] [place] [address] Elana Winters, P.T. [address] [place] [address] 03/17/2024 9:15 AM CDT Clinical Support Department of Physical Medicine and Rehabilitation in [place], [place] [address] [place] [address] Rod Collins M.D. [address] [place] [phone] Elana Winters P, P.[place]. [facility] [place] [address] 03/24/2024 12:45 PM CDT Clinical Support Department of Physical Medicine and Rehabilitation in [place], [place] [address] [place] [address] Rod Collins M.D. [address] [place] [phone] Elana Winters, P.T. [address] [place] [phone] 03/31/2024 12:45 PM CDT Clinical Support Department of Physical Medicine and Rehabilitation in [place], [place] [address] [place] [address] Rod Collins M.D. [address] [place] [phone] Elana Winters P, P.T. [address] [place] [phone] 04/07/2024 12:45 PM CDT Clinical Support Department of Physical Medicine and Rehabilitation in [place], [place] [address] [place] [address] Rod Collins M.D. [address] [place] [phone] Elana Winters, P.T. [address] [place] [phone] 04/14/2024 12:45 PM CDT Clinical Support Department of Physical Medicine and Rehabilitation in [place], [place] [address] [place] [address] Rod Collins M.D. [address] [place] [phone] Elana Winters, P.T. [address] [place] [phone] 04/21/2024 12:45 PM CDT Clinical Support Department of Physical Medicine and Rehabilitation in [place], [place] [address] [place] [address] Rod Collins M.D. [address] [place] [phone] Elana Winters P, P.T. [address] [place] [phone] 04/28/2024 12:45 PM CDT Clinical Support Department of Physical Medicine and Rehabilitation in [place], [place] [address] [place] [address] Rod Collins M.D. [address] [place] [phone] Elana Winters P, P.T. [address] [place] [phone] documented as of this encounter Results * (ABNORMAL) Iron and Total Iron-Binding Capacity (01/15/2024 11:41 AM CDT) [facility] Iron 45 35 - 145 mcg/dL 01/15/2024 3:26 PM CDT AUST Total Iron Binding Capacity 224(L) 250 - 400 mcg/dL 01/15/2024 3:26 PM CDT AUST Percent Saturation 20 14 - 50 % 01/15/2024 3:26 PM CDT AUST Blood (Blood, Venous) 01/15/2024 11:41 AM CDT 01/15/2024 3:07 PM CDT Tony Schwartz P.A.-C. LAB BLOOD ADD-ON Performing Organization Address City/[facility]/ZIP Co de Phone Number [facility] [address] [place] [address], [facility] AUST [facility] - [facility] [address] [place] [address] * (ABNORMAL) Ferritin (01/15/2024 11:41 AM CDT) Ferritin, S 347(H) 11 - 328 mcg/L 01/15/2024 2:25 PM CDT OWAT Comment: Biotin has been identified by the transmission calibration engineer as a potential interfering substance. Higher concentrations of biotin may be found in multivitamins, hair/nail supplements, and workout supplements. If the result does not match clinical observations, repeat testing after patient refrains from the use of supplements for at least 12 hours. Blood (Blood, Venous) 01/15/2024 11:41 AM CDT 01/15/2024 1:31 PM CDT Tony Schwartz P.A.-C. LAB BLOOD ADD-ON Performing Organization Address City/[facility]/ZIP Co de Phone Number [facility] [address] [place] [address], [place] OWAT [facility] in [place] [address] [place] [address] * (ABNORMAL) CBC with Differential, Blood (01/15/2024 [...] P.A.-C. LAB BLOOD ADD-ON Performing Organization Address City/State/[facility] Co de Phone Number [facility] [address] [place] [address], [facility] FB60 [facility] in [place] [address] [place] [address] documented in this encounter Visit Diagnoses Diagnosis Anemia Iron Deficiency- Primary documented in this encounter Additional Health Concerns Assessment Noted Time PHQ-9 Depression Total Score: 6 08/15/20 22 2:06 AM BRICK YARD HAND documented as of this encounter Care Teams Business Dean Relationship Specialty Start Date End Date Erinn Reina M.D. [address] [place] [phone] PCP - General Family Medicine 09/08/21 documented as of this encounter
--- OUTSIDE RECORDS SUMMARY | 2024-03-06 09:47 | XMS_ITS | Encounter Summary ---
Author Organization [facility] Address [address] [place] [address] Care Team Providers Care Towing Pilot Name Role Phone Erinn Reina M.D. Primary Care Provider Encounter Details Date Type Department Care Team (Late st Contact Info) Description 01/29/2024 Clinical Communication Department of Family Medicine[facility] in [place], [place] [address] [place] [address] Erinn Reina M.D. [address] [place] [address] Social History Tobacco Use Types Packs/Day Years [...] any clubs o r organizations such as episcopalian groups, unions, [employer]Sparta [employer] or athletic groups, or school groups? No [...] Answer Date Recorded PHQ-2 Score 1 08/15/2022 [facility] Occupat ionor Health - Occupational Stress Questionnaire Answer Date [...] your living situation today? I have a [facility] place to live 04/10/2023 Education Answer Date Recorded What is the highest level of school you have completed or the highest degree you have received? 12th grade 04/14/2019 Sex and Gender Information Value Date Recorded Sex Assigned at Female 10/24/2023 10:51 PM CONE MARKER Gender Identity Female 02/10/2019 11:51 AM CDT Sexual Orientation Straight 02/10/2019 11 :51 AM CDT documented as of this encounter Plan of Treatment Upcoming Encounters Date Type Department Care Team (Late st Contact Info) Description 03/10/2024 9:15 AM CDT Clinical Support Department of Physical Medicine and Rehabilitation in [place], [place] [address] [place] [address] Rod Collins M.D. [address] [place] [address] Elana Winters, P.T. [address] [place] [address] 03/17/2024 9:15 AM CDT Clinical Support Department of Physical Medicine and Rehabilitation in [place], [place] [address] [place] [address] Rod Collins M.D. [address] [place] [phone] Elana Winters P, P.T. [address] [place] [phone] 03/24/2024 12:45 PM CDT Clinical Support Department of Physical Medicine and Rehabilitation in [place], [place] [address] [place] [address] Rod Collins M.D. [address] [place] [phone] Elana Winters, P.T. [address] [place] [phone] 03/31/2024 12:45 PM CDT Clinical Support Department of Physical Medicine and Rehabilitation in [place], [place] [address] [place] [address] Rod Collins M.D. [address] [place] [phone] Elana Winters, P.T. [address] [place] [phone] 04/07/2024 12:45 PM CDT Clinical Support Department of Physical Medicine and Rehabilitation in [place], [place] [address] [place] [address] Rod Collins M.D. [address] [place] [phone] Elana Winters P, P.T. [address] [place] [phone] 04/14/2024 12:45 PM CDT Clinical Support Department of Physical Medicine and Rehabilitation in [place], [place] [address] [place] [address] Rod Collins M.D. [address] [place] [phone] Elana Winters P, P.T. [address] [place] [phone] 04/21/2024 12:45 PM CDT Clinical Support Department of Physical Medicine and Rehabilitation in [place], [place] [address] [place] [address] Rod Collins M.D. [address] [place] [phone] Elana Winters, P.T. [address] [place] [phone] 04/28/2024 12:45 PM CDT Clinical Support Department of Physical Medicine and Rehabilitation in [place] [address] [place] [address] Rod Collins M.D. [address] [place] [phone] Elana Winters P, P.T. [address] [place] [phone] Scheduled Orders Name Type Priority Associated Diagnoses Orde r Schedule PUL Home Overnight Oximetry PFT Routine Abnormal Oximetry Expected: 01/29/2024, Expires: 04/29/2025 documented as of this encounter Visit Diagnoses Diagnosis Pain Back- Primary Fracture Vertebra Compression Thoracic Closed Initial (HCC) Abnormal Oximetry documented in this encounter Additional Health Concerns Assessment Noted Time PHQ-9 Depression Total Score: 6 08/15/20 22 2:06 AM CONE MARKER documented as of this encounter Care Teams Towing Pilot Relationship Specialty Start Date End Date Erinn Reina M.D. [address] [place] [address] [place] [phone] PCP - General Family Medicine 09/08/21 documented as of this encounter
--- OUTSIDE RECORDS SUMMARY | 2024-03-06 09:47 | XMS_ITS | Encounter Summary ---
Author Organization [facility] Address [address] [place] [address] Care Team Providers Care President Of The [place] Name Role Phone Erinn Reina M.D. Primary Care Provider [phone] Reason for Visit * Physical Therapy (Routine) - Canceled Specialty Diagnoses / Procedures Referred By Osorio guevara Referred To Contact Diagnoses Fibromyalgia Pain Low Back Unspecified Procedures PT Ongoing treatment Tony Schwartz P.AAnn-Marie-CAnn-Marie [address] [place] [address] [facility] Region Referral ID Status Reason Start Date Expiration Date V isits Requested Visits Authorized [id number] Canceled 06/07/2023 06/06/2024 99 99 Encounter Details Date Type Department Care Team (Latest Contact Info) Description 01/02/2024 9:15 AM CDT Clinical Support Department of Physical Medicine and Rehabilitation in [place], [place] [address] [place] [phone] Tony Schwartz, PAnn-MarieA.-CAnn-Marie [address] [place] [phone] Elana Winters, P.TAnn-Marie [address] [place] [phone] Fibromyalgia (Primary Dx); Pain Low Back Unspecified [...] How often do you attend chur or amish services? 1 to 4 times per year 03/05/2022 Do you belong to any clubs o r organizations such as zoroastrian groups, unions, fraternal or athletic groups, or [...] Answer Date Recorded PHQ-2 Score 1 08/15/2022 [facility] of Occupat ional Health - Occupational Stress [...] Sex Assigned at Female 10/24/2023 10:51 PM SPRINKLER TENDER Gender Identity Female 02/10/2019 11:51 AM CDT Sexual Orientation Straight 02/10/2019 11 :51 AM CDT documented as of this encounter Progress Notes * Elana Winters, P.Sharifa. - 01/02/2024 9:15 AM CDT Physical Therapy Outpatient Treatment Note [...] Next Certification Date: 02/14/2024 Epic Visit Count: 46 Precautions Other Precautions: COPD, osteoporotic, history of [...] appointment today, grossly 35 minutes.Patient reports she saw her assembly line brazer and has a scheduled appointment with her agricultural commodities grader next week again. Patient reports her back continues to hurt throughout and believes she has having a fibromyalgia exacerbation due to the nature of her pain in the location is throughout her back versus localized areas. OBJECTIVE Pain: Not formally rated today. 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 Patient continues to demonstrate progressive forward scoliosis of the thoracic region in elevated shoulders bilaterally. Patient demonstrates decreased bilateral shoulder flexion, adduction, and abduction. Mobility/Transfers: Patient requires SBA with transfers on / off the stool [...] recovery and maintenance of range of motion. Home Exercise Program/Education: Patient has prior home [...] mobility. Patient verbalizes she remembers the exercises. [place]: [email or web address] Access Code: [email or web address] Patient reports fair HEP compliance. Patient reports she forgets to perform them, but indicates when she does do them, they do help. Assessment Clinical Impression: Patient returns to physical therapy today with ongoing symptoms in her back and neck region that continue to limit her. Patient continues to demonstrate progressive kyphosis and scoliosis impacting patient's breathing. Patient demonstrate improvement today with her breathing tolerating room air throughout her treatment session. Patient's symptoms consistent with her chronic pain as well as exacerbation of fibromyalgia. Patient remains limited with thoracic and cervical region. While she verbally indicates she feels better, patient remains limited with all mobility and hypertonicity throughout her cervical and thoracic region. Patient requires SBA with transfers for safety. Patient continues to benefit from physical therapy at this time to maintain overall mobility of her spine and chest wall, cervical region, and shoulders to further manage her headaches and reduceddeterioration of her posture impacting her breathing and [...] as able to maintain her general strength. Time Spent with Patient Therapeutic Interventions Manual Therapy (min): 32 min Neuromuscular Re-Education (min): 10 min Time Tracking Total Timed Units (min): 42 min Total Treatment Time (min): 42 min documented in this encounter Plan of Treatment Upcoming Encounters Date Type Department Care Team (Late st Contact Info) Description 03/10/2024 9:15 AM CDT Clinical Support Department of Physical Medicine and Rehabilitation in [place], [place] [address] [place] [address] Rod Collins M.D. [address] [place] [address] Elana Winters, P.T. [address] [place] [phone] 03/17/2024 9:15 AM CDT Clinical Support Department of Physical Medicine and Rehabilitation in [place], [place] [address] [place] [address] Rod Collins M.D. [address] [place] [phone] Elana Winters P, P.T. [address] [place] [phone] 03/24/2024 12:45 PM CDT Clinical Support Department of Physical Medicine and Rehabilitation in [place], [place] [address] [place] [address] Rod Collins M.D. [address] [place] [phone] Elana Winters P, P.T. [address] [place] [phone] 03/31/2024 12:45 PM CDT Clinical Support Department of Physical Medicine and Rehabilitation in [place], [place] [address] [place] [address] Rod Collins M.D. [address] [place] [phone] Elana Winters P, P.T. [address] [place] [phone] 04/07/2024 12:45 PM CDT Clinical Support Department of Physical Medicine and Rehabilitation in [place], [place] [address] [place] [address] Rod Collins M.D. [address] [place] [phone] Elana Winters, P.T. [address] [place] [phone] 04/14/2024 12:45 PM CDT Clinical Support Department of Physical Medicine and Rehabilitation in [place] [address] [place] [address] Rod Collins M.D. [address] [place] [phone] Elana Winters P, P.T. [address] [place] [phone] 04/21/2024 12:45 PM CDT Clinical Support Department of Physical Medicine and Rehabilitation in [place] [address] [place] [address] Rod Collins M.D. [address] [place] [phone] Elana Winters, P.T. [address] [place] [phone] 04/28/2024 12:45 PM CDT Clinical Support Department of Physical Medicine and Rehabilitation in [address] [phone] Rod Collins M.D. [address] [place] [phone] Elana Winters, P.T. [address] [place] [phone] documented as of this encounter Visit Diagnoses Diagnosis Fibromyalgia- Primary Pain Low Back Unspecified documented in this encounter Additional Health Concerns Assessment Noted Time PHQ-9 Depression Total Score: 6 08/15/20 22 2:06 AM SPRINKLER TENDER documented as of this encounter Care Teams President Of The [place] Relationship Specialty Start Date End Date Erinn Reina M.D. NPAmelia: [phone] [address] [place] [address], [place] [address] PCP - General Family Medicine 09/08/21 documented as of this encounter
--- OUTSIDE RECORDS SUMMARY | 2024-03-06 09:47 | XMS_ITS | Encounter Summary ---
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 Right bundle branch block is now present Results for orders placed during the hospital encounter of 07/26/22 DX Chest AP or PA and Lateral 2 Views Narrative EXAM: DX CHEST AP OR PA AND LATERAL 2 VIEWS Impression Stable cardiomegaly. However, since 09/12/2021, pulmonary venous hypertension and small bilateral effusions have developed. Findings would be compatible with CHF. Hyperinflation. Abdominal aortic endograft with side branches. Pectus excavatum. Mild kyphosis. The 10-year ASCVD risk score (Dennise DK, et al., 2019) is: 27% Values used to calculate the score: Age: 78 years Sex: Female Is Non- : No Diabetic: No Tobacco smoker: Yes Systolic Blood Pressure: 122 mmHg Is BP treated: No HDL Cholesterol: 60 mg/dL Total Cholesterol: 155 mg/dL IMPRESSION/REPORT/PLAN See above. Vitor Calle M.D. documented in this encounter Plan of Treatment Upcoming Encounters Date Type Department Care Team (Late st Contact Info) Description 03/10/2024 9:15 AM CDT Clinical Support Department of Physical Medicine and Rehabilitation in [place], [place] [address] [place] [address] Rod Collins M.D. [address] [place] [phone] Elana Winters P, P.T. [address] [place] [phone] 03/17/2024 9:15 AM CDT Clinical Support Department of Physical Medicine and Rehabilitation in [place], [place] [address] [place] [address] Rod Collins M.D. [address] [place] [phone] Elana Winters P, P.T. [address] [place] [phone] 03/24/2024 12:45 PM CDT Clinical Support Department of Physical Medicine and Rehabilitation in [place], [place] [address] [place] [address] Rod Collins M.D. [address] [place] [phone] Elana Winters P, P.T. [address] [place] [phone] 03/31/2024 12:45 PM CDT Clinical Support Department of Physical Medicine and Rehabilitation in [place], [place] [address] [place] [address] Rod Collins M.D. [address] [place] [phone] Elana Winters, P.T. [address] [place] [phone] 04/07/2024 12:45 PM CDT Clinical Support Department of Physical Medicine and Rehabilitation in [place], [place] [address] [place] [phone] Rod Collins M.D. [address] [place] [phone] Elana Winters, P.T. [address] [place] [phone] 04/14/2024 12:45 PM CDT Clinical Support Department of Physical Medicine and Rehabilitation in [place], [place] [address] [place] [phone] Rod Collins M.D. [address] [place] [phone] Elana Winters, P.T. [address] [place] [phone] 04/21/2024 12:45 PM CDT Clinical Support Department of Physical Medicine and Rehabilitation in [place], [place] [address] [place] [address] Rod Collins M.D. [address] [place] [phone] Elana Winters, P.T. [address] [place] [phone] 04/28/2024 12:45 PM CDT Clinical Support Department of Physical Medicine and Rehabilitation in [place], [place] [address] [place] [phone] Rod Collins M.D. [address] [place] [phone] Elana Winters, P.T. [address] [place] [phone] Scheduled Referrals Name Type Priority Associated Diagnoses Order Schedule Cardiovascular Disease office visit (clinic) Outpatient Referral Routine Expect ed: 07/09/2024 (Approximate), Expires: 04/08/2025 documented as of this encounter Results * NT-Pro B-Type Natriuretic Peptide (BNP) (01/15/2024 [...] CDT Vitor Calle M.D. LAB BLOOD ADD-ON [facility] [address] [place] [address], [place] [facility] [place] [address] [place] [address] * Creatinine with Estimated GFR (01/15/2024 11:41 AM CDT) Creatinine 0.72 0.59 - 1.04 mg/dL 01/15/2024 2:15 PM CDT OWAT Estimated GFR (eGFR) 86 >=60 mL/min/BSA 01/15/2024 2:15 PM CDT OWAT Comment: Estimated GFR calculated using the 2020 CKD_EPI creatinine equation. Blood (Blood, Venous) 01/15/2024 11:41 AM CDT 01/15/2024 1:31 PM CDT Vitor Calle M.D. LAB BLOOD ADD-ON [facility] [address] [place] [address], [place] OW[place] [facility] [place] [address] [place] [address] * Potassium (01/15/2024 11:41 AM CDT) Potassium, P 4.5 3.6 - 5.2 mmol/L 01/15/2024 2:15 PM CDT OWAT Blood (Blood, Venous) 01/15/2024 11:41 AM CDT 01/15/2024 1:31 PM CDT Vitor Calle M.D. LAB BLOOD ADD-ON Performing Organization Address City/[facility]/ZIP Co de Phone Number [facility] [address] [place] [address], [place] [facility] [place] [address] [place] [address] * Sodium (01/15/2024 11:41 AM CDT) Sodium, P 139 135 - 145 mmol/L 01/15/2024 2:15 PM CDT OWAT Blood (Blood, Venous) 01/15/2024 11:41 AM CDT 01/15/2024 1:31 PM CDT Vitor Calle M.D. LAB BLOOD ADD-ON [facility] [address] [place] [address], [place] [facility] [facility] [place] [address] [place] [address] documented in this encounter Visit Diagnoses Diagnosis Dyspnea Multifactorial- Primary documented in this encounter Additional Health Concerns Assessment Noted Time PHQ-9 Depression Total Score: 6 08/15/20 22 2:06 AM STAGE RIGGER documented as of this encounter Care Teams Test Examiner Relationship Specialty Start Date End Date Erinn Reina M.D. [address] [place] [phone] PCP - General Family Medicine 09/08/21 documented as of this encounter
--- OUTSIDE RECORDS SUMMARY | 2024-03-06 09:48 | XMS_ITS | Encounter Summary ---
Author Organization [facility] Address [address] [place] [address] Care Team Providers Care Supervisor Shearing Name Role Phone Erinn Reina M.D. Primary Care Provider [phone] Reason for Referral * Outpatient (Routine) - Authorized Specialty Diagnoses / Procedures Referred By Osorio guevara Referred To Contact Diagnoses Chronic Obstructive Pulmonary Disease Moderate (HCC) Seun Bey M.D. 200 [place] [address] Referral ID Status Reason Start Date Expiration Date V isits Requested Visits Authorized [id number] Authorized 12/05/2023 06/05/2025 1 1 ORT GROUP MANAGER Encounter Details Date Type Department Care Team (Late st Contact Info) Description 12/05/2023 Clinical Communication Division of Pulmonary Medicine in [place], [place] [address] [place] [phone] Seun Bey M.D. [address] [place] [phone] Social History Tobacco Use Types Packs/Day Years [...] declined 03/05/2022 How often do you attend [facility] or restorationism services? 1 to 4 times per year 03/05/2022 Do you belong to any clubs o r organizations such as scientology groups, unions, fraternal or athletic groups, or [...] Answer Date Recorded PHQ-2 Score 1 08/15/2022 [facility]at ional Health - [...] your living situation today? I have a [facility] place to live 04/10/2023 Education Answer Date Recorded What is the highest level of school you have completed or the highest degree you have received? 12th grade 04/14/2019 Sex and Gender Information Value Date Recorded Sex Assigned at Female 10/24/2023 10:51 PM SUPPORT GROUP MANAGER Gender Identity Female 02/10/2019 11:51 AM CDT Sexual Orientation Straight 02/10/2019 11 :51 AM CDT documented as of this encounter Plan of Treatment Upcoming Encounters Date Type Department Care Team (Late st Contact Info) Description 03/10/2024 9:15 AM CDT Clinical Support Department of Physical Medicine and Rehabilitation in [place], [place] [address] [place] [address] Rod Collins M.D. [address] [place] [phone] Elana Winters P, P.T. [address] [place] [address] 03/17/2024 9:15 AM CDT Clinical Support Department of Physical Medicine and Rehabilitation in [place], [place] [address] [place] [address] Rod Collins M.D. [address] [place] [phone] Elana Winters, P.T. [address] [place] [phone] 03/24/2024 12:45 PM CDT Clinical Support Department of Physical Medicine and Rehabilitation in [place], [place] [address] [address] Rod Collins M.D. [address] [place] [phone] Elana Winters P, P.T. [address] [place] [phone] 03/31/2024 12:45 PM CDT Clinical Support Department of Physical Medicine and Rehabilitation in [place], [place] [address] [address] Rod Collins M.D. [address] [place] [phone] Elana Winters, P.T. [address] [place] [phone] 04/07/2024 12:45 PM CDT Clinical Support Department of Physical Medicine and Rehabilitation in [place], [place] [address] [address] Rod Collins M.D. [address] [place] [phone] Elana Winters P, P.T. [address] [place] [phone] 04/14/2024 12:45 PM CDT Clinical Support Department of Physical Medicine and Rehabilitation in [place], [place] [address] [address] Rod Collins M.D. [address] [place] [phone] Elana Winters P, P.T. [address] [place] [phone] 04/21/2024 12:45 PM CDT Clinical Support Department of Physical Medicine and Rehabilitation in [place], [place] [address] [place] [address] Rod Collins M.D. [address] [place] [phone] Elana Winters P, P.T. [address] [place] [phone] 04/28/2024 12:45 PM CDT Clinical Support Department of Physical Medicine and Rehabilitation in [place], [place] [address] [place] [address] Rod Collins M.D. [address] [place] [phone] Elana Winters P, P.T. [address] [place] [phone] documented as of this encounter Visit Diagnoses Diagnosis Chronic Obstructive Pulmonary Disease Moderate (HCC)- Primary documented in this encounter Additional Health Concerns Assessment Noted Time PHQ-9 Depression Total Score: 6 08/15/20 22 2:06 AM SUPPORT GROUP MANAGER documented as of this encounter Care Teams Supervisor Shearing Relationship Specialty Start Date End Date Erinn Reina M.D. [address] [place], [place] [address] Reyes [phone] PCP - General Family Medicine 09/08/21 documented as of this encounter
--- OUTSIDE RECORDS SUMMARY | 2024-03-06 09:48 | XMS_ITS | Encounter Summary ---
Author Organization [facility] Address [address] [place] [address] Care Team Providers Care Twist Maker Name Role Phone Erinn Reina M.D. Primary Care Provider [phone] Reason for Visit * Physical Therapy (Routine) - Canceled Specialty Diagnoses / Procedures Referred By Osorio guevara Referred To Contact Diagnoses Fibromyalgia Pain Low Back Unspecified Procedures PT Ongoing treatment Tony Schwartz P.AAnn-Marie-CAnn-Marie [address] [place] [address] [facility] Region Referral ID Status Reason Start Date Expiration Date V isits Requested Visits Authorized [id number] Canceled 06/07/2023 06/06/2024 99 99 Encounter Details Date Type Department Care Team (Latest Contact Info) Description 12/02/2023 1:15 PM STORE HOST Clinical Support Department of Physical Medicine and Rehabilitation in [place], [place] [address] [place] [phone] Tony Schwartz, PAnn-MarieA.-CAnn-Marie [address] [place] [phone] Elana Winters, P.T. [address] [place] [phone] Fibromyalgia (Primary Dx); Pain Low Back Unspecified [...] Answer Date Recorded PHQ-2 Score 1 08/15/2022 [facility] of Occupat ional [facility] - Occupational Stress Questionnaire Answer Date [...] Sex Assigned at Female 10/24/2023 10:51 PM STORE HOST Gender Identity Female 02/10/2019 11:51 AM CDT Sexual Orientation Straight 02/10/2019 11 :51 AM CDT documented as of this encounter Progress Notes * Elana Winters, P.T. - 12/02/2023 1:15 PM CST Physical Therapy Outpatient Treatment Note SUBJECTIVE Patient's [...] Type: Medicare / PT Next Certification Date: 11/22/2023 Epic Visit Count: 44 Precautions Other Precautions: COPD, osteoporotic, history of [...] appointment for physical therapy. Patient reports she is voiding frequently today. She reports she is taking her Lasic regularly and reports her weightremains elevated to 98 lbs. She indicates she was 92 lbs last week or the week before. She saw her car audio installer since her last PT appointment and reports she asked about the weight gain as directed. She has been referred to Pulmonary Rehab and is trying to schedule that but is not sure what thatentails. She is more sore today throughout her thoracic and cervical region. OBJECTIVE Pain: Not formally rated today. Patient describes pain greater from her thoracic region and cervical area.f Patient is [employer] - was present for transportation Vitals: Patient remains on 2 L of oxygen with NC in her nose patient and ranges 83%- 88% utilizing left hand 2nd finger on her right hand. Neck Pain Disability Index (NDI) Neck Disability [...] Index:45% Observation/Inspection: Patient is observed to have labored breathing with patient talking. Patientcontinues to demonstrate progressive forward scoliosis of the thoracic region in elevated shouldersbilaterally. Patient demonstrates decreased bilateral shoulder flexion, adduction, [...] right with symptoms provoked. Range of Motion: In seated position today - 60 forward [...] thoracic region including greater time around the scapulas in the mid thoracic area. Soft tissue work was performed bilateral through the axillary region lateral scapulararea soft tissue work continued along the parascapular [...] for breathing strategies. Along with tactile cues tomaintain stability and posture gentle posterior to anterior mobilization of the thoracic and costalregion left side greater than right per patient's complaints of symptoms performed grade 2. Patient's posture was passively adjusted into upright extension to adjust direction and mobilization per patient's tolerance. In an effort to provide manual traction for the cervical region attempts made at manual distraction while seated with passive flexion for increased tolerance gentle static grade to hold 5 x 10 seconds each. In addition manual traction attempted with passive anterior to posterior mobilizations through the spinous processes for increased range of motion with progression of flexionas tolerated x 5 each. Therapeutic exercise: Following manual therapy techniques in seated position passive range of motion was performed left shoulder region for shoulder flexion, abduction, scaption, external rotation aspatient was able tolerate. Home Exercise Program/Education: Patient has prior home exercise program including stretches for her thoracic cervical region and strengthening exercises 01/14/23: Verbally review, physically demonstrate home exercise program with the patient encouragingthoracic range of motion, and chest wall including Al[place]ure stretches to reduce thoracic kyphosis. 04/01/23: Standing [...] mobility. Patient verbalizes she remembers the exercises. Adyoulike: [email or web address] Access Code: [email or web address] Patient reports fair HEP compliance. Patient reports she forgets to perform them, but indicates when she does do them, they do help. Assessment Clinical Impression: Patient returns to physical therapy today with ongoing symptoms in her back and neck region that continue to limit her. Patient continues to demonstrate progressive kyphosis and scoliosis impacting patient's breathing. Patient requires use of supplemental oxygen throughout her treatment session today. Patient remains very limited with thoracic and cervical region today. Whileshe verbally indicates she feels better, patient remains limited with all mobility and hypertonicity throughout her cervical and thoracic region. Patient requires SBA with transfers for safety. Patient continues to benefit from physical therapy at this time to maintain overall mobility of her spineand chest wall as well as her cervical region to further manage her headaches and reduced [...] as able to maintain her general strength. Patient will be moving to a smaller apartment in 2 weeks, down the [address] from her current apartment. Patient's daughter is arriving late tonight and will be around for 1 week to assist with move. Time Spent with Patient Therapeutic Interventions Manual Therapy (min): 38 min Therapeutic Exercise (min): 5 min Time Tracking Total Timed Units (min): 43 min Total Treatment Time (min): 43 min E HOST documented in this encounter Plan of Treatment Upcoming Encounters Date Type Department Care Team (Late st Contact Info) Description 03/10/2024 9:15 AM CDT Clinical Support Department of Physical Medicine and Rehabilitation in [place], [place] [address] [place] [address] Rod Collins M.D. [address] [place] [address] Elana Winters P, P.T. [place] [phone] 03/17/2024 9:15 AM CDT Clinical Support Department of Physical Medicine and Rehabilitation in [place], [place] [address] [place] [address] Rod Collins M.D. [address] [place] [phone] Elana Winters, P.T. [address] [place] [phone] 03/24/2024 12:45 PM CDT Clinical Support Department of Physical Medicine and Rehabilitation in [place], [place] [address] [place] [address] Rod Collins M.D. [address] [place] [phone] Elana Winters, P.T. [address] [place] [phone] 03/31/2024 12:45 PM CDT Clinical Support Department of Physical Medicine and Rehabilitation in [place], [place] [address] [place] [address] Rod Collins M.D. [address] [place] [phone] Elana Winters, P.T. [address] [place] [phone] 04/07/2024 12:45 PM CDT Clinical Support Department of Physical Medicine and Rehabilitation in [place], [place] [address] [place] [address] Rod Collins M.D. [address] [place] [phone] Elana Winters, P.T. [address] [place] [phone] 04/14/2024 12:45 PM CDT Clinical Support Department of Physical Medicine and Rehabilitation in [address] [phone] Rod Collins M.D. [address] [place] [phone] Elana Winters, P.T. [address] [place] [phone] 04/21/2024 12:45 PM CDT Clinical Support Department of Physical Medicine and Rehabilitation in [address] [phone] Rod Collins M.D. [address] [place] [phone] Elana Winters, P.T. [address] [place] [phone] 04/28/2024 12:45 PM CDT Clinical Support Department of Physical Medicine and Rehabilitation in [address] [phone] Rod Collins M.D. [address] [place] [phone] Elana Winters, P.T. [address] [place] [phone] documented as of this encounter Visit Diagnoses Diagnosis Fibromyalgia- Primary Pain Low Back Unspecified documented in this encounter Additional Health Concerns Assessment Noted Time PHQ-9 Depression Total Score: 6 08/15/20 22 2:06 AM STORE HOST documented as of this encounter Care Teams Twist Maker Relationship Specialty Start Date End Date Erinn Reina M.D. NPAmelia: [phone] [address] [place] [address] [place] [phone] PCP - General Family Medicine 09/08/21 documented as of this encounter
--- OUTSIDE RECORDS SUMMARY | 2024-03-06 09:48 | XMS_ITS | Encounter Summary ---
Author Organization [facility] Address [address] [place] [address] Care Team Providers Care Hand Rug Braider Name Role Phone Erinn Reina M.D. Primary Care Provider Encounter Details Date Type Department Care Team (Late st Contact Info) Description 11/15/2023 Clinical Communication [facility] in [place], [place] [address] [place] [address] Arjun Umana M.D. [address] [place] [address] Social History Tobacco Use Types Packs/Day Years [...] often do you attend chur ch or mormonism services? 1 to 4 times per year 03/05/2022 Do you belong to any clubs o r organizations such as yarsani groups, unions, fraternal or athletic groups, or [...] Answer Date Recorded PHQ-2 Score 1 08/15/2022 [facility] - Occupational Stress Questionnaire Answer Date [...] your living situation today? I have a [facility] place to live 04/10/2023 Education Answer Date Recorded What is the highest level of school you have completed or the highest degree you have received? 12th grade 04/14/2019 Sex and Gender Information Value Date Recorded Sex Assigned at Female 10/24/2023 10:51 PM CERTIFIED PROFESSIONAL CONTROLLER Gender Identity Female 02/10/2019 11:51 AM CDT Sexual Orientation Straight 02/10/2019 11 :51 AM CDT documented as of this encounter Plan of Treatment Upcoming Encounters Date Type Department Care Team (Late st Contact Info) Description 03/10/2024 9:15 AM CDT Clinical Support Department of Physical Medicine and Rehabilitation in [place], [place] [address] [place] [address] Rod Collins M.D. [address] [place] [address] Elana Winters, P.T. [address] [place] [address] 03/17/2024 9:15 AM CDT Clinical Support Department of Physical Medicine and Rehabilitation in [place], [place] [address] [place] [address] Rod Collins M.D. [address] [place] [phone] Elana Winters P, P.T. [address] [place] [address] 03/24/2024 12:45 PM CDT Clinical Support Department of Physical Medicine and Rehabilitation in [place], [place] [address] [place] [address] Rod Collins M.D. [address] [place] [phone] Elana Winters, P.T. [address] [place] [phone] 03/31/2024 12:45 PM CDT Clinical Support Department of Physical Medicine and Rehabilitation in [place], [place] [address] [place] [address] Rod Collins M.D. [address] [place] [phone] Elana Winters P, P.T. [address] [place] [phone] 04/07/2024 12:45 PM CDT Clinical Support Department of Physical Medicine and Rehabilitation in [place], [place] [address] [place] [address] Rod Collins M.D. [address] [place] [phone] Elana Winters, P.T. [facility] [place] [address] 04/14/2024 12:45 PM CDT Clinical Support Department of Physical Medicine and Rehabilitation in [place], [place] [address] [place] [address] Rod Collins M.D. [address] [place] [phone] Elana Winters P, P.T. [address] [place] [phone] 04/21/2024 12:45 PM CDT Clinical Support Department of Physical Medicine and Rehabilitation in [place], [place] [address] [place] [address] Rod Collins M.D. [address] [place] [phone] Elana Winters P, P.T. [address] [place] [phone] 04/28/2024 12:45 PM CDT Clinical Support Department of Physical Medicine and Rehabilitation in [place], [place] [address] [place] [address] Rod Collins M.D. [address] [place] [phone] Elana Winters P, P.T. [address] [place] [phone] documented as of this encounter Visit Diagnoses Diagnosis Chronic Obstructive Pulmonary Disease Moderate (HCC)- Primary documented in this encounter Additional Health Concerns Assessment Noted Time PHQ-9 Depression Total Score: 6 08/15/20 22 2:06 AM CERTIFIED PROFESSIONAL CONTROLLER documented as of this encounter Care Teams Hand Rug Braider Relationship Specialty Start Date End Date Erinn Reina M.D. [address] [place] [phone] PCP - General Family Medicine 09/08/21 documented as of this encounter
--- OUTSIDE RECORDS SUMMARY | 2024-03-06 09:48 | XMS_ITS | Encounter Summary ---
Author Organization [facility] Address [address] [place] [address] Care Team Providers Care Asbestos Coverer Name Role Phone Erinn Reina M.D. Primary Care Provider Encounter Details Date Type Department Care Team (Late st Contact Info) Description 11/13/2023 Orders Only Division of Pulmonary Medicine in [place], [place] [address] [place] [address] Arjun Umana M.D. [address] [place] [phone] Social History Tobacco Use Types Packs/Day Years [...] often do you attend chur ch or pentecostal services? 1 to 4 times per year 03/05/2022 Do you belong to any clubs o r organizations such as jehovah's witness groups, unions, fraternal or athletic groups, or [...] Date Recorded PHQ-2 Score 1 08/15/2022 [facility] - Occupational Stress Questionnaire Answer Date [...] your living situation today? I have a [facility] place to live 04/10/2023 Education Answer Date Recorded What is the highest level of school you have completed or the highest degree you have received? 12th grade 04/14/2019 Sex and Gender Information Value Date Recorded Sex Assigned at Female 10/24/2023 10:51 PM COAL CAGER Gender Identity Female 02/10/2019 11:51 AM CDT Sexual Orientation Straight 02/10/2019 11 :51 AM CDT documented as of this encounter Plan of Treatment Upcoming Encounters Date Type Department Care Team (Late st Contact Info) Description 03/10/2024 9:15 AM CDT Clinical Support Department of Physical Medicine and Rehabilitation in [place], [place] [address] [place] [address] Rod Collins M.D. [address] [place] [address] Elana Winters, P.T. [address] [place] [address] 03/17/2024 9:15 AM CDT Clinical Support Department of Physical Medicine and Rehabilitation in [place], [place] [address] [place] [address] Rod Collins M.D. [address] [place] [phone] Elana Winters P, P.T. [address] [place] [address] 03/24/2024 12:45 PM CDT Clinical Support Department of Physical Medicine and Rehabilitation in [place], [place] [address] [place] [address] Rod Collins M.D. [address] [place] [phone] Elana Winters, P.T. [address] [place] [phone] 03/31/2024 12:45 PM CDT Clinical Support Department of Physical Medicine and Rehabilitation in [place], [place] [address] [place] [address] Rod Collins M.D. [address] [place] [phone] Elana Winters P, P.T. [address] [place] [phone] 04/07/2024 12:45 PM CDT Clinical Support Department of Physical Medicine and Rehabilitation in [place], [place] [address] [place] [address] Rod Collins M.D. [address] [place] [phone] Elana Winters, P.T. [facility] [place] [address] 04/14/2024 12:45 PM CDT Clinical Support Department of Physical Medicine and Rehabilitation in [place], [place] [address] [place] [address] Rod Collins M.D. [address] [place] [phone] Elana Winters P, P.T. [address] [place] [phone] 04/21/2024 12:45 PM CDT Clinical Support Department of Physical Medicine and Rehabilitation in [place], [place] [address] [place] [address] Rod Collins M.D. [address] [place] [phone] Elana Winters P, P.T. [address] [place] [phone] 04/28/2024 12:45 PM CDT Clinical Support Department of Physical Medicine and Rehabilitation in [place], [place] [address] [place] [address] Rod Collins M.D. [address] [place] [phone] Elaan Winters P, P.T. [address] [place] [phone] documented as of this encounter Visit Diagnoses Not on filedocumented in this encounter Additional Health Concerns Assessment Noted Time PHQ-9 Depression Total Score: 6 08/15/20 22 2:06 AM COAL CAGER documented as of this encounter Care Teams Asbestos Coverer Relationship Specialty Start Date End Date Erinn Reina M.D. [address] [place] [phone] PCP - General Family Medicine 09/08/21 documented as of this encounter
--- OUTSIDE RECORDS SUMMARY | 2024-03-06 09:48 | XMS_ITS | Encounter Summary ---
Author Organization [facility] Address [address] [place] [address] Care Team Providers Care Assembler Bicycle Name Role Phone Erinn Reina M.D. Primary Care Provider Reason for Referral * Outpatient (Routine) - Closed Specialty Diagnoses / Procedures Referred By Osorio guevara Referred To Contact Pulmonary Medicine Seun Bey M.D. [address] [place] [address] [facility] Referral ID Status Reason Start Date Expiration Date Visits Re quested Visits Authorized [id number] Closed 12/03/2023 06/03/2025 1 1 Scheduling Instructions With Phi Umana, or myself if unavailable. ORT SPECIALIST Reason for Visit * Outpatient (Routine) - Closed Specialty Diagnoses / Procedures Referred By Osorio guevara Referred To Contact Pulmonary Medicine Diagnoses Dyspnea Multifactorial Chronic Respiratory Failure With Hypoxia (HCC) Chronic Obstructive Pulmonary Disease Moderate (HCC) Arjun Umana M.D. [address] [place] [address] [facility] Referral ID Status Reason Start Date Expiration Date Visits Re quested Visits Authorized [id number] Closed 11/01/2023 05/02/2025 1 1 Encounter Details Date Type Department Care Team ([facility] st Contact Info) Description 12/03/2023 4:30 PM SUPPORT SPECIALIST Office Visit Division of Pulmonary Medicine in [place], [place] [address] [place] [address] Seun Bey M.D. [address] [place] [address] Dyspnea Multifactorial; Chronic Respiratory Failure With Hypoxia (HCC); Chronic Obstructive Pulmonary Disease Moderate (HCC) Social History Tobacco Use Types Packs/Day [...] declined 03/05/2022 How often do you attend [facility] or rastafari services? 1 to 4 times [...] Score 1 08/15/2022 [facility] - Occupational [...] living situation today? I have a [facility] place to live 04/10/2023 Education Answer Date Recorded What is the highest level of school you have completed or the highest degree you have received? 12th grade 04/14/2019 Sex and Gender Information Value Date Recorded Sex Assigned at Female 10/24/2023 10:51 PM SUPPORT SPECIALIST Gender Identity Female 02/10/2019 11:51 AM CDT Sexual Orientation Straight 02/10/2019 11 :51 AM CDT documented as of this encounter Progress Notes * Seun Bey M.D. - 12/03/2023 4:30 PM CST Images from the original note were not included. SUBJECTIVE CHIEF COMPLAINT / REASON FOR VISIT COPD. HISTORY OF PRESENT ILLNESS Ms. Rivera is a 78 y.o. female with ongoing tobacco use (greater than 30 pack- year history) with COPD, pulmonary hypertension, heart failure with preserved ejection fraction presenting for follow-upof COPD and dyspnea on exertion. She was last seen with Dr. Arjun umana in October, at which timeher symptoms have notably worsened as she would run out of her inhaled medications and had not had any for 3 weeks prior to the visit due to her maintenance inhalers being cost prohibitive. At that time she was endorsing bend apnea and exertional dyspnea, but without acute exacerbations. She uses supplemental oxygen at home ranging from 2-5 liters/minute. Oxygen titration following Dr. Umana's visit showed saturations maintained in the mid 90% range on 2 L supplemental oxygen, at rest oxygen saturation was 85%, improving to mid 90s with 2 liters/minute. At that visit she had decreased her tobacco usage to 3-4 cigarettes daily. With regards to her pulmonary hypertension most recent echo in 2022 was unable to quantify estimated PASP, but in 2021 RVSP was estimated at 61 mm Hg. She has also had a CT of the chest in late May 2023 with some micro nodules in the right middle lobe and emphysematous changes throughout. At that visit in October she was ultimately prescribed Trelegy Ellipta with DuoNebs as needed. She was also provided a prescription to complete pulmonary rehabilitation locally. She reports that since her last pulmonary visit she has had a gradual decline in her functional capacity, although she states that that has been somewhat improved over the past 2 weeks since filling her trilogy prescription. Unfortunately, she reports that this cost her upwards of 600 dollars for asingle inhaler. Although review through our EMR suggests that this should be covered by insurance based on this cost I am suspicious this may not be the case. At this visit she was present with her daughter and granddaughter as she is currently moving to a smaller apartment which has caused some stress. Unfortunately related to the stress she is increased her smoking from roughly 4 cigarettes today to 8 that she reports. She denies any recent exacerbations but feels that this is a continued downward trend of her breathing. She has been significantly functioning limited for the past 2-3 years although family reports she has had a roughly 25 lb weight loss over the past 1-2 years. Related to this, she gets short of breath with basic activities of daily living including showering, getting dressed, preparing meals all of which may require intermittent breaks. REVIEW OF SYSTEMS As per HPI CURRENT MEDICATIONS Current Outpatient Medications: acetaminophen (TYLENOL) 500 mg tablet, Take 2 tablets (1,000 mg total) by mouth every 6 (six) hoursas needed for pain (Purchase over the counter. First line for pain.)., Disp: , Rfl: aspirin [address] tablet, Take 1 tablet (81 mg total) by mouth daily., Disp: 90 tablet, Rfl: 3 BEVACIZUMAB VTRE, by intravitreal route. Eye injections by MD as directed, Disp: , Rfl: DME Oxygen, Inhale. DME Order Patient stated she uses 02 at night with 2L, Disp: , Rfl: DULoxetine (CYMBALTA) [address] capsule, Take 30 mg by mouth daily. , Disp: , Rfl: fexofenadine-pseudoephedrine (JIHAN-D 24) 180-240 mg per 24 hr tablet, Take 1 tablet by mouth daily as needed for allergies or rhinitis., Disp: , Rfl: fluticasone propionate (FLONASE) 50 mcg/actuation nasal spray, SHAKE LIQUID AND USE 2 SPRAYS IN EACH NOSTRIL DAILY, Disp: 48 g, Rfl: 3 fseocwayxjd-swjanjrpsyxe-obxlmszuro (Trelegy Ellipta) 100-62.5-25 mcg/actuation inhaler, Inhale 1 puff once daily., Disp: 60 each, Rfl: 11 ipratropium-albuteroL (DUONEB) 0.5-2.5 mg/3 mL nebulizer solution, Inhale 3 mL by nebulization 4 (four) times a day as needed for wheezing or shortness of breath., Disp: 180 mL, Rfl: 2 lidocaine (LIDODERM) 5 %, Place 1 patch on the skin daily., Disp: , Rfl: rosuvastatin (CRESTOR) 10 mg tablet, Take 1 tablet (10 mg total) by mouth daily., Disp: 90 tablet, Rfl: 3 torsemide (DEMADEX) 20 mg tablet, Take 20 mg by mouth daily., Disp: , Rfl: Ventolin HFA 90 mcg/actuation inhaler, Inhale 2 puffs every 4 (four) hours as needed for wheezing or shortness of breath., Disp: 18 g, Rfl: 11 Current Facility-Administered Medications: cyanocobalamin 1,000 mcg/mL injection 1,000 mcg (VITAMIN B12), 1,000 mcg, subcutaneous, Q30 Days, Erinn Reina M.D., 1,000 mcg at 10/19/22 1339 cyanocobalamin 1,000 mcg/mL injection 1,000 mcg (VITAMIN B12), 1,000 mcg, intramuscular, Q30 Days, Ronn Vogt P.A.-Jayden., P.A., 1,000 mcg at 02/27/23 1500 OBJECTIVE There were no vitals taken for this visit. PHYSICAL EXAM Gen: no acute distress while seated in clinic, well-groomed and conversant HEENT: PERRL, nares patent Card: Regular rate, regular rhythm Pulm: No increased work of breathing, on nasal cannula, she has a prolonged expiratory phase and itis quite difficult to appreciate significant air movement, I do not note overt wheezing or rhonchi Extr: No notable cyanosis, modest bilateral lower extremity edema ASSESSMENT / PLAN #1 Dyspnea on exertion, multifactorial #2 Chronic obstructive pulmonary disease GOLD IIIB, MMRC-4, with chronic hypoxic respiratory failure #3 Heart failure preserved ejection fraction #4 Pulmonary hypertension with components of group 3 and potentially group 2 disease, most recent RVSP of 61 mm Hg #5 Active tobacco use #6 Pulmonary cachexia - Her overall clinical picture is quite concerning with her severe diffusion impairment that has led to chronic hypoxic respiratory failure. She has had ongoing weight loss and decreased functional capacity over the past couple of years. We reviewed her diet and it does appear that she has relatively modest caloric intake. We discussed the mechanisms of pulmonary cachexia and that with her significant energy expenditure just do her work of breathing, that we very much need to increase her oral intake. - She unfortunately since our last visit has not been able to arrange pulmonary rehab locally. I have requested the pulmonary rehab education visit but this is currently on a wait list, and I have asked her and her family to see if the primary care physician's office maybe aware of local pulmonary rehabilitation centers that they could take the prescription Dr. Umana supplied during the last visit. - With regards to her cost prohibitive inhalers, I have also asked family to reach out to their pharmacy and see if they are showing that she has approval for this medication as indicated in our electronic medical record. If this is not currently covered I would be more than happy to find any covered replacement that gives us a combination of inhaled corticosteroid and long-acting anti muscarinicand beta agonist. - Also discussed with Ms. Rivera and her family that she has quite limited pulmonary reserve, and the anything we can do to assist her to quit smoking is imperative. She has done relatively well weaning down in the past, but as this has been a quite longstanding habit she notes that the actual activity of having a cigarette in her hand and smoking is difficult to replace. We did discuss the use of none nicotine eating water vapor devices that resemble cigarettes to see if we can reduce some ofthe ongoing damage from tobacco smoke. - I have requested that she has another follow-up visit with Dr. Umana or myself sometime in late February through March prior to graduation. - She additionally does have an upcoming transthoracic echocardiogram prior to follow-up appointment with Cardiology, some 1+ pitting edema today but does not appear overtly volume overloaded Case to be discussed with Dr. Thorpe BILLING Total time spent: 30 minutes, which included nojz-lo-diwc time during the encounter as well as one or more of the following: medical record review, documenting and ordering services, phone calls, family meetings, and/or communication with other healthcare professionals. Orders Placed This Encounter Procedures Pulmonary - Rehab education visit (clinic) Pulmonary Medicine office visit (clinic) Wm. Chente Bey MD Fellow, Pulmonary and Critical Care Medicine #[id number] ORT SPECIALIST documented in this encounter Plan of Treatment Upcoming Encounters Date Type Department Care Team (Late st Contact Info) Description 03/10/2024 9:15 AM CDT Clinical Support Department of Physical Medicine and Rehabilitation in [place], [place] [address] [place] [address] Rod Collins M.D. [address] [place] [phone] Elana Winters P, P.T. [address] [place] [phone] 03/17/2024 9:15 AM CDT Clinical Support Department of Physical Medicine and Rehabilitation in [place], [place] [address] [place] [address] Rod Collins M.D. [address] [place] [address] Elana Winters P, P.T. [address] [place] [phone] 03/24/2024 12:45 PM CDT Clinical Support Department of Physical Medicine and Rehabilitation in [place] [address] [place] [address] Rod Collins M.D. [address] [place] [phone] Elana Winters P, P.T. [address] [place] [phone] 03/31/2024 12:45 PM CDT Clinical Support Department of Physical Medicine and Rehabilitation in [place], [place] [address] [place] [address] Rod Collins M.D. [address] [place] [phone] Elana Winters, P.T. [address] [place] [address] 04/07/2024 12:45 PM CDT Clinical Support Department of Physical Medicine and Rehabilitation in [place], [place] [address] [place] [address] Rod Collins M.D. [address] [place] [phone] Elana Winters, P.T. [address] [place] [address] 04/14/2024 12:45 PM CDT Clinical Support Department of Physical Medicine and Rehabilitation in [place], [place] [address] [place] [address] Rod Collins M.D. [address] [place] [phone] Elana Winters, P.T. [address] [place] [phone] 04/21/2024 12:45 PM CDT Clinical Support Department of Physical Medicine and Rehabilitation in [place], [place] [address] [place] [address] Rod Collins M.D. [address] [place] [phone] Elana Winters, P.T. [place] [address] 04/28/2024 12:45 PM CDT Clinical Support Department of Physical Medicine and Rehabilitation in [place], [place] [address] [place] [address] Rod Collins M.D. [address] [place] [phone] Elana Winters, P.T. [address] [place] [address] Scheduled Referrals Name Type Priority Associated Diagnoses Orde r Schedule Pulmonary Medicine office visit (clinic) Outpatient Referral Routine Expected: 03/02/2024 (Approximate), Expires: 03/02/2025 documented as of this encounter Visit Diagnoses Diagnosis Dyspnea Multifactorial Chronic Respiratory Failure With Hypoxia (HCC) Chronic Obstructive Pulmonary Disease Moderate (HCC) documented in this encounter Additional Health Concerns Assessment Noted Time PHQ-9 Depression Total Score: 6 08/15/20 22 2:06 AM SUPPORT SPECIALIST documented as of this encounter Care Teams Assembler Bicycle Relationship Specialty Start Date End Date Erinn Reina M.D. [address] [place] [address] [place] Vivas [phone] PCP - General Family Medicine 09/08/21 documented as of this encounter
--- OUTSIDE RECORDS SUMMARY | 2024-03-06 09:48 | XMS_ITS | Encounter Summary ---
Author Organization [facility] Address [address] [place] [address] Care Team Providers Care Hat Brusher Machine Name Role Phone Erinn Reina M.D. Primary Care Provider Reason for Referral * Cardiovascular-Diagnostic (Routine) - Closed Specialty Diagnoses / Procedures Referred By Contac t Referred To Contact Diagnoses Dilated Aortic Root (HCC) Dyspnea Multifactorial Procedures Echo Transthoracic (TTE) Vitor Calle M.D. [address] [place] [address] [facility] Referral ID Status Reason Start Date Expiration Date Visits Re quested Visits Authorized [id number] Closed 10/09/2023 10/08/2024 1 1 Reason for Visit * Cardiovascular-Diagnostic (Routine) - Closed Specialty Diagnoses / Procedures Referred By Osorio guevara Referred To Contact Diagnoses Dilated Aortic Root (HCC) Dyspnea Multifactorial Procedures Echo Transthoracic (TTE) Vitor Calle M.D. [address] [place] [address] [facility] Region Referral ID Status Reason Start Date Expiration Date Visits Re quested Visits Authorized [id number] Closed 10/09/2023 10/08/2024 1 1 Encounter Details Date Type Department Care Team (Latest Contact Info) Description 01/01/2024 1:14 PM CDT - 01/01/2024 11:59 PM CDT Hospital Encounter Department of Cardiovascular Diseases in [place], [place] [address] [facility] [phone] Vitor Calle M.D. [address] [facility] [place] [place] [phone] Dilated Aortic Root (HCC); Dyspnea Multifactorial Discharge Disposition: Home or Self Care Social [...] often do you attend chur ch or congregational services? 1 to 4 times per year 03/05/2022 Do you belong to any clubs o r organizations such as restorationist groups, unions, fraternal or athletic groups, or [...] Answer Date Recorded PHQ-2 Score 1 08/15/2022 [facility] [place] of Occupat ional Health - Occupational Stress [...] Sex Assigned at Female 10/24/2023 10:51 PM TOXICOLOGY SUPERVISOR Gender Identity Female 02/10/2019 11:51 AM CDT [...] 2023 fluticasone-umeclidiniu m-vilanterol (Trelegy Ellipta) 100-62.5-25 mcg/actuation inhalerIndications:Apprentice Instrument Technician padmini Obstructive Pulmonary Disease Moderate (HCC) Inhale [...] mouth daily. 90 tablet 3 10/09/2023 10/08/2024 torsemide (DEMADEX) 20 mg tablet Take 20 mg by mouth daily. 01/19/2023 Ventolin HFA 90 mcg/actuation inhalerIndications:Apprentice Instrument Technician padmini Obstructive Pulmonary Disease (HCC),Dyspnea Multifactorial Inhale 2 puffs every 4 (four) hours as needed for wheezing or shortness of breath. 18 g 11 11/08/2023 11/07/2024 documented as of this encounter Plan of Treatment Upcoming Encounters Date Type Department Care Team (Late st Contact Info) Description 03/10/2024 9:15 AM CDT Clinical Support Department of Physical Medicine and Rehabilitation in [place], [place] [address] [place] [address] Rod Collins M.D. [address] [place] [phone] Elana Winters P, P.T. [address] [place] [phone] 03/17/2024 9:15 AM CDT Clinical Support Department of Physical Medicine and Rehabilitation in [place], [place] [address] [place] [address] Rod Collins M.D. [address] [place] [phone] Elana Winters P, P.T. [address] [place] [phone] 03/24/2024 12:45 PM CDT Clinical Support Department of Physical Medicine and Rehabilitation in [place], [place] [address] [place] [address] Rod Collins M.D. [address] [place] [phone] Elana Winters, P.T. [address] [place] [phone] 03/31/2024 12:45 PM CDT Clinical Support Department of Physical Medicine and Rehabilitation in [place], [place] [address] [place] [address] Rod Collins M.D. [address] [place] [phone] Elana Winters, P.T. [address] [place] [phone] 04/07/2024 12:45 PM CDT Clinical Support Department of Physical Medicine and Rehabilitation in [place], [place] [address] [place] [address] Rod Collins M.D. [address] [place] [phone] Elana Winters, P.T. [address] [place] [phone] 04/14/2024 12:45 PM CDT Clinical Support Department of Physical Medicine and Rehabilitation in [place], [place] [address] [place] [address] Rod Collins M.D. [address] [place] [phone] Elana Winters, P.T. [address] [place] [phone] 04/21/2024 12:45 PM CDT Clinical Support Department of Physical Medicine and Rehabilitation in [place], [place] [address] [place] [address] Rod Collins M.D. [address] [place] [address] Elana Winters P, P.T. [address] [place] [address] 04/28/2024 12:45 PM CDT Clinical Support Department of Physical Medicine and Rehabilitation in [place], [place] [address] [place] [address] Rod Collins M.D. [address] [place] [address] Elana Winters P, P.T. [address] [place] [phone] documented as of this encounter Procedures Procedure Name Priority Date/Time Associated Diagnosis Comments (TTE) 2D ECHO DOPPLER COLOR Routine 01/01/2024 2:07 PM CDT Dilated Aortic Root (HCC) Dyspnea Multifactorial documented in this encounter Results * (TTE) 2D ECHO DOPPLER COLOR (01/01/2024 [...] ratio). Calculated 2-D linear left ventricular ejection perwoaqf89%. No regional wall motion abnormalities. Grade 1a/3 [...] Documents. Vitor Calle M.D. CV ECHO PROCEDURES documented in this encounter Visit Diagnoses Diagnosis Dilated Aortic Root (HCC) Dyspnea Multifactorial documented in this encounter Additional Health Concerns Assessment Noted Time PHQ-9 Depression Total Score: 6 08/15/20 22 2:06 AM TOXICOLOGY SUPERVISOR documented as of this encounter Care Teams Hat Brusher Machine Relationship Specialty Start Date End Date Erinn Reina M.D. [address] [place] [phone] PCP - General Family Medicine 09/08/21 documented as of this encounter
--- OUTSIDE RECORDS SUMMARY | 2024-03-06 09:48 | XMS_ITS | Encounter Summary ---
Author Organization [facility] Address [address] [place] [address] Care Team Providers Care Bedspread Folder Name Role Phone Erinn Reina M.D. Primary Care Provider [phone] Reason for Visit * Physical Therapy (Routine) - Canceled Specialty Diagnoses / Procedures Referred By Osorio guevara Referred To Contact Diagnoses Fibromyalgia Pain Low Back Unspecified Procedures PT Ongoing treatment Tony Schwartz P.AAnn-Marie-CAnn-Marie [address] [place] [address] [facility] Region Referral ID Status Reason Start Date Expiration Date V isits Requested Visits Authorized [id number] Canceled 06/07/2023 06/06/2024 99 99 Encounter Details Date Type Department Care Team (Latest Contact Info) Description 12/26/2023 10:45 AM CDT Clinical Support Department of Physical Medicine and Rehabilitation in [place], [place] [address] [place] [phone] Tony Schwartz, PAnn-MarieA.-CAnn-Marie [address] [place] [phone] Elana Winters, P.TAnn-Marie [address] [place] [phone] Fibromyalgia (Primary Dx); Pain Low Back Unspecified [...] any clubs o r organizations such as voodoo groups, unions, fraternal or athletic groups, or [...] Answer Date Recorded PHQ-2 Score 1 08/15/2022 [facility] of Occupat ional Health - Occupational Stress [...] Sex Assigned at Female 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 - 12/26/2023 10:45 AM CDT Physical Therapy Outpatient Treatment [...] Next Certification Date: 11/22/2023 Epic Visit Count: 45 Precautions Other Precautions: COPD, osteoporotic, history of [...] for physical therapy. Patient reports she is exhausted and sleeping a lot again. She reports she was able to get successfully moved to her new apartment with the assistance of her family but indicates she has not impact. Patient describes numerous boxes that remain packed that she is unable to physically on pack herself. Patient indicates she is overwhelmed with items she has to unpack and or donate in his unsure what she wants to do with some of these items. Patient indicates also in the smaller apartment there different challenges with lack of space such as in her bathroom, use of centralized oxygen tank, and decreased space for boxes. Patient indicates she is several medical doctors appointments coming up in the next week or 2as well. She indicates she is supposed to continues her supplemental oxygen 2 L but is on 3 L today. OBJECTIVE Pain: Not formally rated today. 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 Neck Pain Disability Index (NDI) Neck Disability [...] progression of flexionas tolerated x 5 each. Home Exercise Program/Education: Patient has prior home [...] mobility. Patient verbalizes she remembers the exercises. vogogo: [email or web address] Access Code: [email or web address] Patient reports fair HEP [...] breathing. Patient requires use of supplemental oxygen pre and post her treatment session today. Patient remains very limited with thoracic and cervical region today. While she verbally indicates she feels better, patient remains limited with all mobility and hypertonicity throughout her cervical and thoracic region. Patient requires SBA with transfers for safety. Patient continues to benefit from physical therapy at this time to maintain overall mobility of her spine and chest wall as well as her cervical [...] Therapeutic Interventions Manual Therapy (min): 39 min Time Tracking Total Timed Units (min): 39 min Total Treatment Time (min): 39 min documented in this encounter Plan of Treatment Upcoming Encounters Date Type Department Care Team (Late st Contact Info) Description 03/10/2024 9:15 AM CDT Clinical Support Department of Physical Medicine and Rehabilitation in [place], [place] [address] [place] [address] Rod Collins M.D. [address] [place] [address] Elana Winters, P.T. [address] [place] [phone] 03/17/2024 9:15 AM CDT Clinical Support Department of Physical Medicine and Rehabilitation in [place], [place] [address] [place] [address] Rod Collins M.D. [address] [place] [phone] Elana Winters P, P.T. [address] [place] [phone] 03/24/2024 12:45 PM CDT Clinical Support Department of Physical Medicine and Rehabilitation in [place] [address] [place] [address] Rod Collins M.D. [address] [place] [phone] Elana Winters P, P.T. [address] [place] [phone] 03/31/2024 12:45 PM CDT Clinical Support Department of Physical Medicine and Rehabilitation in [place] [address] [place] [address] Rod Collins M.D. [address] [place] [phone] Elana Winters P, P.T. [address] [place] [phone] 04/07/2024 12:45 PM CDT Clinical Support Department of Physical Medicine and Rehabilitation in [place], [place] [address] [place] [address] Rod Collins M.D. [address] [place] [phone] Elana Winters P, P.T. [address] [place] [phone] 04/14/2024 12:45 PM CDT Clinical Support Department of Physical Medicine and Rehabilitation in [place], [place] [address] [place] [address] Rod Collins M.D. [address] [place] [phone] Elana Winters, P.T. [address] [place] [phone] 04/21/2024 12:45 PM CDT Clinical Support Department of Physical Medicine and Rehabilitation in [place], [place] [address] [place] [address] Rod Collins M.D. [address] [place] [phone] Elana Winters, P.T. [address] [place] [phone] 04/28/2024 12:45 PM CDT Clinical Support Department of Physical Medicine and Rehabilitation in [place] [address] [place] [address] Rod Collins M.D. [address] [place] [phone] Elana Winters P, P.T. 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 [address] [place] [address] [place] [phone] PCP - General Family Medicine 09/08/21 documented as of this encounter
[2024-03-06 09:55] LABS: Chloride* 98 mmol/L (96-114); Potassium* 4.3 mmol/L (3.6-5.1); Sodium* 135 mmol/L (135-149)
[2024-03-06 09:57] LABS: Creatinine* 0.7 mg/dL (0.5-1.5); Est. Creatinine Clearance* 33.32; Estimated Glomerular Filt Rate 88 ml/min
[2024-03-06 09:58] LABS: Alanine Aminotransferase* 18 U/L (4-35); Alkaline Phosphatase* 76 U/L (40-150); Anion Gap -1 mEq/L (7-15); Aspartate Amino Transferase* 32 U/L (12-35); Bilirubin Total* 0.7 mg/dL (0.1-1.5); Blood Urea Nitrogen* 20 mg/dL (7-30); Carbon Dioxide* 38 mmol/L (20-32); Glucose* 94 mg/dL (60-115); Lipase* 144 U/L (23-300); Total Protein* 7.2 g/dL (6.0-8.3)
[2024-03-06 10:02] LABS: PCR FLU A Negative PCR FLU A (Negative); PCR FLU B Negative PCR FLU B (Negative); PCR RSV Negative PCR RSV (Negative); SARS PCR* Negative SARS-CoV-2 (Negative)
[2024-03-06 10:14] LABS: NT Pro B Type NatriureticPept* 536 pg/mL; Troponin I* < 0.01 ng/mL (0.01-0.04)
[2024-03-06 11:16] LABS: Appearance Urine Clear (Clear); Bilirubin Urine Negative (Negative); Blood Urine Negative (Negative); Color Urine Yellow (Yellow); Glucose Urine Negative (Negative); Ketones Urine Negative (Negative); Leukocyte Esterase Urine Negative (Negative); Nitrite Urine Negative (Negative); Protein Urine Trace (Negative); Specific Gravity Urine 1.015 (1.000-1.030); Urobilinogen Urine 0.2 (0.2-1.0); pH Urine 8.5 (5.0-8.5)
[2024-03-06 11:26] LABS: Amorphous Sediment Urine Few; RBC Urine 0-2 (0-2); Squamous Epithelial Cell Urine Few (None-Few); WBC Urine 0-2 (0-5)
--- NOTE | 2024-03-06 11:37 | ED_ITS ---
HPI - General Adult General Date Seen: 03/06/24 Chief complaint: Shortness of Breath/Dyspnea Stated complaint: Difficulty breathing Time Seen by Provider: 03/06/24 08:57 History of Present Illness HPI narrative: 79-year-old female with a history of oxygen-dependent COPD, history of CHF, also known history of previously stented abdominal aortic aneurysm, presenting to the ER today with her care provider for evaluation of shortness of breath, bilateral lower extremity peripheral edema, and also abdominal pain. In terms of her shortness of breath she notes that it became than baseline worse yesterday and worse this morning. She is feeling short of breath and tightness in her chest. She is coughing but nonproductive. No pleuritic chest pain. No hemoptysis. No known sick contacts. She does note that the weather changed and sometimes that makes her COPD flares up. She also notes that she has new swelling in both of her ankles and about a 5 lb increase in her weight over the past couple of days. She has been taking all of her medications, including her diuretic, but did not take her med this morning before coming into the ER. She did have an ABG done by her granulizing machine operator at [facility] on Saturday. It showed a pH is 7.41 and a pCO2 of 55. Apparently ABG was done as part of a process to get her qualified for BiPAP at night rather than CPAP which may help with her ventilation. She also endorses abdominal pain. Primary with a epigastric. Has been present for at least several weeks but has gotten worse over the past few days. Apparently was quite tender on her abdominal exam when she was in her pulmonology clinic 2 days ago on Saturday. She has has been having abdominal pain, typically triggered after meals, for a couple of weeks would worse after the past couple of days. No fever. No vomiting. Bowel movements normal. No black or bloody stools. No abdominal bloating. No new masses. Related Data Home Medications ?Medication ?Instructions ?Recorded ?Confirmed albuterol sulfate 90 mcg/actuation 2 puff inhalation Q4H PRN 04/24/22 12/24/23 aerosol inhaler (Ventolin HFA) cyanocobalamin (vitamin B-12) 1,000 mcg IM Q30D 12/18/22 12/24/23 1,000 mcg/mL injection kit fexofenadine-pseudoephedrine ER 1 tab PO DAILY PRN 12/18/22 12/24/23 180 mg-240 mg tablet,ext.release 24 hr (24HR Allergy-Congestion Relief) fluticasone propionate 50 2 spray intranasal DAILY PRN 12/18/22 12/24/23 mcg/actuation nasal spray,suspension ipratropium 0.5 mg-albuterol 3 mg 3 ml inhalation QID PRN 12/18/22 12/24/23 (2.5 mg base)/3 mL nebulization soln Trelegy PO 11/28/23 acetaminophen 500 mg capsule 1,000 mg PO Q6H PRN 11/28/23 12/24/23 aspirin 81 mg tablet,delayed 81 mg PO QDAY 11/28/23 12/24/23 release rosuvastatin 10 mg tablet 10 mg PO QDAY 11/28/23 12/24/23 torsemide 20 mg tablet 20 mg PO QDAY 11/28/23 03/06/24 spironolactone 25 mg tablet PO 03/06/24 Previous Rx's ?Medication ?Instructions ?Recorded Home Oxygen #1 ea 12/20/22 cholecalciferol (vitamin D3) 25 25 mcg PO QDAY #90 tabs 06/20/23 mcg (1,000 unit) tablet Cymbalta 20 mg capsule,delayed 20 mg PO QDAY #90 caps 11/28/23 release (duloxetine) omeprazole 40 mg capsule,delayed 40 mg PO DAILY #30 caps 03/06/24 release prednisone 20 mg tablet 20 mg PO DAILY #10 tabs 03/06/24 Allergies Allergy/AdvReac Type Severity Reaction Status Date / Time erythromycin base Allergy Intermediate dry heaves Verified 03/06/24 10:01 Penicillins Allergy Intermediate Shortness Verified 03/06/24 10:01 of Breath & Fainting tetanus toxoid, adsorbed Allergy Intermediate Dizziness Verified 03/06/24 10:01 & Fainting codeine AdvReac Mild Rash Verified 03/06/24 10:01 alendronate sodium AdvReac Unknown Gastrointestinal Verified 03/06/24 10:01 [From Fosamax] Upset [facility] Medical History (Updated 03/06/24 @ 12:17 by Rosendo Barclay MD) Normal cardiac stress test (~01/2023) ALLIE (obstructive sleep apnea) ?G47.33 - Obstructive sleep apnea (adult) (pediatric) (ICD-10) Iron deficiency anemia (2019) ?D50.9 - Iron deficiency anemia, unspecified (ICD-10) Subarachnoid hemorrhage following injury (10/2018) ?S06.6XAA - Traumatic subarachnoid hemorrhage with loss of consciousness status unknown, initial encounter (ICD-10) Ascending aorta dilation ?I77.810 - Thoracic aortic ectasia (ICD-10) Dyspnea on exertion ?R06.09 - Other forms of dyspnea (ICD-10) B12 deficiency ?E53.8 - Deficiency of other specified B group vitamins (ICD-10) TIA (transient ischemic attack) (~2018) ?G45.9 - Transient cerebral ischemic attack, unspecified (ICD-10) Pulmonary hypertension ?I27.20 - Pulmonary hypertension, unspecified (ICD-10) Hearing loss of both ears ?H91.93 - Unspecified hearing loss, bilateral (ICD-10) IBS (irritable bowel syndrome) ?K58.9 - Irritable bowel syndrome without diarrhea (ICD-10) Macular degeneration ?H35.30 - Unspecified macular degeneration (ICD-10) Weakness generalized ?R53.1 - Weakness (ICD-10) Thyroid nodule ?E04.1 - Nontoxic single thyroid nodule (ICD-10) Osteopenia ?M85.80 - Other specified disorders of bone density and structure, unspecified site (ICD-10) Depression ?F32.A - Depression, unspecified (ICD-10) Diastolic heart failure (10/2022) ?I50.30 - Unspecified diastolic (congestive) heart failure (ICD-10) Essential hypertension ?I10 - Essential (primary) hypertension (ICD-10) Cigarette nicotine dependence ?F17.210 - Nicotine dependence, cigarettes, uncomplicated (ICD-10) NYHA class 3 heart failure with preserved ejection fraction ?I50.30 - Unspecified diastolic (congestive) heart failure (ICD-10) Fibromyalgia ?M79.7 - Fibromyalgia (ICD-10) Chronic back pain ?M54.9 - Dorsalgia, unspecified (ICD-10) ?G89.29 - Other chronic pain (ICD-10) COPD (chronic obstructive pulmonary disease) ?J44.9 - Chronic obstructive pulmonary disease, unspecified (ICD-10) Acute on chronic respiratory failure with hypoxia and hypercapnia (12/20/22) ?J96.21 - Acute and chronic respiratory failure with hypoxia (ICD-10) ?J96.22 - Acute and chronic respiratory failure with hypercapnia (ICD-10) Surgical History History of colonoscopy with polypectomy ?Z98.890 - Other specified postprocedural states (ICD-10) ?Z86.010 - Personal history of colonic polyps (ICD-10) 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 Long time and current smoker, not ready to quit Smoking Status: Current every day smoker What tobacco products do you use: cigarettes Smoking packs per day: 0.5 Smoking cigarettes per day: 10.0 Do you use any of these nicotine containing products: None Second hand tobacco smoke exposure: No How often do you have a drink containing alcohol: 4 or more times a week Alcohol type: wine Alcohol type details: 1 glass of wine a night How many standard drinks containing alcohol do you have on a typical day: 1 or 2 How often do you have six or more drinks on one occasion: Never AUDIT-C Alcohol total score: 4 Non-prescribed substance use: denies use Caffeine: No Little interest or pleasure in doing things: more than half the days Feeling down, depressed, or hopeless: more than half the days service: No Exam Narrative: Exam Narrative: Constitutional: Appears well-developed and well-nourished. Alert. Conversant. Non toxic. HENT: Head: Atraumatic. Nose: Nose normal. Mouth/Throat: Oral mucosa is clear and moist. no trismus. Pharynx normal. Tonsils symmetric. No tonsillar enlargement, erythema, or exudate. Eyes: Conjunctivae normal. EOM normal. Pupils equal, round, and reactive to light. No scleral icterus. Neck: Normal range of motion. Neck supple. No tracheal deviation present. Cardiovascular: Normal rate, regular rhythm. No gallop. No friction rub. No murmur heard. Symmetric radial artery pulses Pulmonary/Chest: Effort normal. No stridor. No respiratory distress. Bilateral wheezes with diminished lung sounds. No rales. No rhonchi . No tenderness. Abdominal: Soft. Bowel sounds normal. No distension. No mass. No pulsatile mass. No CVA tenderness. Epigastric greater than left upper quadrant and right upper quadrant tenderness. No rebound. No guarding. Musculoskeletal: RUE: Normal range of motion. No tenderness. No deformity LUE: Normal range of motion. No tenderness. No deformity RLE: Normal range of motion. 2+ edema. No tenderness. No deformity LLE: Normal range of motion. 2+ edema. No tenderness. No deformity Neurological: Alert and oriented to person, place, and time. Normal strength. CN II-VII intact. No sensory deficit. GCS eye subscore is 4. GCS verbal subscore is 5. GCS motor subscore is 6. Normal coordination Skin: Skin is warm and dry. No rash noted. No pallor. Normal capillary refill. Psychiatric: Normal mood. Normal affect. Const: Vital Signs, click to edit/add: Vital Signs - 24 hr 03/06/24 08:26 03/06/24 08:45 03/06/24 09:00 Temperature 98.1 F Pulse Rate 87 84 Pulse Rate [Right Pulse Oximeter] 93 Respiratory Rate 18 Blood Pressure Blood Pressure [Ri ght Upper Arm] 129/88 Pulse Oximetry 89 100 96 Oxygen Delivery Me thod Nasal Cannula Oxygen Flow Rate 2 03/06/24 09:27 03/06/24 09:30 03/06/24 09:45 Temperature Pulse Rate 90 88 90 Pulse Rate [Right Pulse Oximeter] Respiratory Rate Blood Pressure Blood Pressure [Ri ght Upper Arm] Pulse Oximetry 100 100 98 Oxygen Delivery Me thod Oxygen Flow Rate 03/06/24 10:13 03/06/24 10:15 03/06/24 10:19 Temperature Pulse Rate 91 88 89 Pulse Rate [Right Pulse Oximeter] Respiratory Rate Blood Pressure 151/106 H Blood Pressure [Ri ght Upper Arm] Pulse Oximetry 95 99 100 Oxygen Delivery Me thod Oxygen Flow Rate 03/06/24 10:30 03/06/24 10:32 03/06/24 11:02 Temperature Pulse Rate 92 88 Pulse Rate [Right Pulse Oximeter] Respiratory Rate Blood Pressure 146/104 H 149/110 H Blood Pressure [Ri ght Upper Arm] Pulse Oximetry 100 100 Oxygen Delivery Me thod Oxygen Flow Rate 03/06/24 11:32 03/06/24 12:00 03/06/24 12:03 Temperature Pulse Rate Pulse Rate [Right Pulse Oximeter] Respiratory Rate 18 Blood Pressure 154/110 H 146/116 H Blood Pressure [Ri ght Upper Arm] Pulse Oximetry Oxygen Delivery Me thod Oxygen Flow Rate Course Vital Signs Vital signs: Initial Vital Signs Temperature 98.1 F 03/06/24 08:26 Temperature Source Temporal Artery Scan 03/06/24 08:26 Pulse Rate 93 03/06/24 08:26 Pulse Rhythm Regular 03/06/24 08:26 Respiratory Rate 18 03/06/24 08:26 Blood Pressure 129/88 03/06/24 08:26 Blood Pressure Mean 101 03/06/24 08:26 Blood Pressure Position Sitting 03/06/24 08:26 Pulse Oximetry 89 03/06/24 08:26 Oxygen Delivery Method Nasal Cannula 03/06/24 08:26 Oxygen Flow Rate 2 03/06/24 08:26 Vital Signs Temperature 98.1 F 03/06/24 08:26 Pulse Rate 93 03/06/24 08:26 Respiratory Rate 18 03/06/24 08:26 Blood Pressure 129/88 03/06/24 08:26 Pulse Oximetry 89 03/06/24 08:26 Oxygen Delivery Method Nasal Cannula 03/06/24 08:26 Oxygen Flow Rate 2 03/06/24 08:26 Temperature 98.1 F 03/06/24 08:26 Pulse Rate 88 03/06/24 10:32 Respiratory Rate 18 03/06/24 12:00 Blood Pressure 146/116 H 03/06/24 12:03 Pulse Oximetry 100 03/06/24 10:32 Oxygen Delivery Method Nasal Cannula 03/06/24 08:26 Oxygen Flow Rate 2 03/06/24 08:26 Medications Administered Medications: Discontinued Medications Generic Name Dose Route Start Last Admin Trade Name Freq PRN Reason Stop Dose Admin Albuterol/Ipratropium 1 neb 03/06/24 08:57 03/06/24 09:16 Iprat-Albut 0.5-2.5 Mg/3 Ml Neb IH 03/06/24 08:58 1 neb ONCE ONE Administration Medical Decision Making MDM Narrative Medical decision making narrative: Pleasant 79-year-old female accompanied to the ER today by her care provider with 2 separate chief complaints. 1. She endorses shortness of breath it has gotten worse over night. She is having some chest tightness and trouble breathing this morning. Has a long history of COPD and is currently oxygen dependent. Oxygen saturations are normal on her baseline oxygen. Lung sounds were diminished with bilateral wheezes. She was treated with DuoNeb here in the ER with improvement in her symptoms. She also has a history of CHF and does note new/worsening peripheral edema affecting both of her legs with a 5 lb weight gown over the past couple of days. Concern is for possible CHF. However BNP is minimally elevated and chest imaging does not show any sign of pulmonary edema. No evidence for pneumonia. COVID and influenza are negative. Troponin undetectable. EKG shows a right bundle branch block but no definite new ischemia. With symptoms ongoing since overnight, I do not think she needs to be admitted for serial troponins to rule out ACS. VBG shows baseline pCO2 compared to Saturday. Also respiratory alkalosis. Suspect likely due to COPD exacerbation. Will treat with nebulizers and a 5 day burst of prednisone 2. Also endorsing upper abdominal pain that is been present for quite some time, possibly several weeks, but worse over the past couple of days. She has a known history of previous endograft repair of abdominal aortic aneurysm. CT scan of her chest abdomen pelvis is obtained and shows no evidence for any new aortic leak, or aortic dissection. CT angiogram also shows no evidence for vascular disease affecting the SMA, [place] or other mesenteric vessels. Lactic acid is normal, also arguing against acute mesenteric ischemia. Laboratory workup is reassuring showing normal lipase, LFTs. Normal white count. Kidney function normal. Urinalysis negative. At this point no acute medical or surgical emergency identified causing her abdominal pain. Discussed with the patient and her caregiver and her son Tru, who arrived later. Differential would still include peptic ulcer disease or gastritis. Try her on a course of omeprazole. She will need close outpatient follow-up for re-evaluation. Precautions for return to the ER if worsening were reviewed. Lab Data Labs: Lab Results 03/06/24 03/06/24 Range/Units 09:15 09:28 WBC 6.83 (4.50-11.00) K/uL RBC 3.89 L (4.00-5.20) m/uL Hgb 11.4 L (12.0-16.0) gm/dL Hct 37.1 (33.0-51.0) % MCV 95 (80-100) fL MCH 29 (26-34) pg MCHC 31 L (32-36) gm/dL RDW Coeff of Lane 16.3 H (11.5-15.5) % Plt Count 176 (140-440) K/uL Neut % (Auto) 67.0 (42.0-72.0) % Lymph % (Auto) 17.4 L (20-44) % [place] % (Auto) 11.3 H (0.0-11.0) % Eos % (Auto) 3.8 (0.0-7.0) % Baso % (Auto) 0.4 (0.0-3.0) % Neut # (Auto) 4.57 (1.7-7.0) K/uL Lymph # (Auto) 1.20 (0.90-2.90) K/uL [place] # (Auto) 0.80 (0.00-0.90) K/UL Eos # (Auto) 0.26 (0.00-0.50) K/uL Baso # (Auto) 0.03 (0.00-0.30) K/uL Abs Immat Gran (auto) 0.01 (0.00-0.30) K/uL Imm/Tot Granulo (auto) 0.1 % VBG pH 7.469 H (7.32-7.43) VBG pCO2 49 (40-50) mmHG VBG pO2 42.9 (25-47) mmHG VBG HCO3 35 H (21-28) mmol/L Sodium 135 (135-149) mmol/L Potassium 4.3 (3.6-5.1) mmol/L Chloride 98 (96-114) mmol/L Carbon Dioxide 38 H (20-32) mmol/L Anion Gap -1 L (7-15) mEq/L BUN 20 (7-30) mg/dL Creatinine 0.7 (0.5-1.5) mg/dL Estimated Creat Clear 33.32 Estimated GFR 88 ml/min Glucose 94 (60-115) mg/dL Lactate 0.8 (0.5-1.9) mmol/L Calcium 9.0 (8.4-10.6) mg/dL Total Bilirubin 0.7 (0.1-1.5) mg/dL AST 32 (12-35) U/L ALT 18 (4-35) U/L Alkaline Phosphatase 76 (40-150) U/L Troponin I < 0.01 L (0.01-0.04) ng/mL NT-Pro-B Natriuret Pep 536 pg/mL Total Protein 7.2 (6.0-8.3) g/dL Albumin 4.0 (3.3-5.0) g/dL Lipase 144 (23-300) U/L Urine Color Yellow (Yellow) Urine Appearance Clear (Clear) Urine pH 8.5 (5.0-8.5) Ur Specific [place] 1.015 (1.000-1.030) Urine Protein Trace A (Negative) Urine Glucose (UA) Negative (Negative) Urine Ketones Negative (Negative) Urine Blood Negative (Negative) Urine Nitrite Negative (Negative) Urine Bilirubin Negative (Negative) Urine Urobilinogen 0.2 (0.2-1.0) Ur Leukocyte Esterase Negative (Negative) Urine RBC 0-2 (0-2) Urine WBC 0-2 (0-5) Ur Squamous Epith Cells Few (None-Few) Amorphous Sediment Few A (None) Urine Bacteria None (None) SARS-CoV-2 (PCR) Negative SARS-CoV-2 (Negative) Influenza Type A (PCR) Negative PCR FLU A (Negative) Influenza Type B (PCR) Negative PCR FLU B (Negative) RSV (PCR) Negative PCR RSV (Negative) Imaging Data CT Chest/Ab/Pelvis: Attestation: I have reviewed the pertinent imaging results. Radiologist's impression: FINDINGS: CHEST: Cardiovascular structures: Aortic atherosclerosis. Ascending thoracic aorta is dilated to 4 cm. Noncontrast images show no evidence of acute intramural hematoma in the thoracic aorta. No dissection of the thoracic aorta. Main pulmonary artery is dilated to 3.6 cm. Coronary artery calcifications. Heart size is within normal limits. Mediastinum and sydnie: No pathologic lymphadenopathy. Lungs: No pneumothorax. Central airways are patent. Mild emphysema with bilateral scarring, atelectasis and stable subcentimeter nodules most consistent with a benign etiology. No evidence of acute airspace disease. Pleura and pericardium: No effusions. Chest wall and axilla: Unremarkable. ABDOMEN AND PELVIS: Liver: Unremarkable. Spleen: Unremarkable. Pancreas: Unremarkable. Gallbladder and bile ducts: No calcified stones or biliary ductal dilatation. Kidneys: Unremarkable. Adrenal glands: Unremarkable. GI tract: Distal colonic diverticulosis without evidence of acute diverticulitis. No bowel obstruction or focal inflammatory change elsewhere. No free air or free fluid. Lymph nodes: No pathologic lymphadenopathy. Vascular structures: Indwelling aorto bi-iliac stent graft, with celiac, superior mesenteric and renal artery limbs shows no evidence of complication. Mesenteric vessels as imaged are patent. No acute retroperitoneal hemorrhage. Pelvic Organs: Unremarkable. Bones: Demineralization, degenerative changes and chronic compression deformities of the spine, as before. IMPRESSION: 1. No evidence of aortic dissection. 2. No acute abnormality elsewhere in the chest, abdomen or pelvis. Discharge Plan Discharge Clinical Impression: Acute exacerbation of chronic obstructive pulmonary disease, Edema, peripheral, Abdominal pain Patient Disposition: Home, Self-Care Condition: Stable Instructions: COPD (Chronic Obstructive Pulmonary Disease) (ED), Leg Edema (ED), Abdominal Pain (ED) Additional Instructions: As we discussed, come back to the ER right away if you get worse-especially if you have worsening trouble breathing, developed chest pain, cough, or fever, or if your abdominal pain gets worse or if your too nauseous to eat or drink or if you getting dehydrated. To treat your lungs, continue on your regular medications and nebulizers and inhalers. We will also add a 5 day course of prednisone to reduce lung inflammation. To treat the swelling in your lower legs, take 1 extra dose (double your normal dose) of your diuretic today when you get home and then resume your normal dose of diuretic tomorrow. At this point the cause of your abdominal pain is not clear. It could possibly be stomach ulcers. We will put you on stomach acid medication. Take it once daily. If you have worsening pain come back to the ER right away. If you are not completely improved within 2-3 days, return to the ER or see your doctor for a recheck. Prescriptions: New prednisone 20 mg tablet 20 mg PO DAILY Qty: 10 0RF omeprazole 40 mg capsule,delayed release(DR/EC) 40 mg PO DAILY Qty: 30 2RF No Action cholecalciferol (vitamin D3) 25 mcg (1,000 unit) tablet 25 mcg PO QDAY Qty: 90 4RF torsemide 20 mg tablet 20 mg PO QDAY rosuvastatin 10 mg tablet 10 mg PO QDAY Trelegy PO aspirin 81 mg tablet,delayed release (DR/EC) 81 mg PO QDAY acetaminophen 500 mg capsule 1,000 mg PO Q6H PRN duloxetine [Cymbalta] 20 mg capsule,delayed release(DR/EC) 20 mg PO QDAY Qty: 90 4RF Rx Instructions: Has to be brand name Cymbalta no substitution albuterol sulfate [Ventolin HFA] 90 mcg/actuation HFA aerosol inhaler 2 puff INHALATION Q4H PRN Patient Comments: INHALE 2 PUFFS BY MOUTH EVERY 4 HOURS NEEDED FOR WHEEZING AND FOR SHORTNESS OF BREATH fluticasone propionate 50 mcg/actuation spray,suspension 2 spray INTRANASAL DAILY PRN fexofenadine-pseudoephedrine [24HR Allergy-Congestion Relief] 180-240 mg tablet extended release 24 hr 1 tab PO DAILY PRN cyanocobalamin (vitamin B-12) 1,000 mcg/mL kit 1,000 mcg IM Q30D Rx Instructions: MONTHLY ipratropium-albuterol 0.5 mg-3 mg(2.5 mg base)/3 mL solution for nebulization 3 ml inhalation QID PRN (DME) Home Oxygen Misc See Rx Instructions .Route Qty: 1 0RF Rx Instructions: As directed spironolactone 25 mg tablet PO Follow Up/Referrals: Sylvia Guillen MD [Primary Care Provider] - Stand Alone Forms: [facility] Info Instructions
== END 2024-03-06 12:25 | disposition home or self-care (01) ==
PROVIDERS: Emergency Provider Emergency Medicine; PCP Family Medicine
DX: J44.1 Chronic obstructive pulmonary disease with (acute) exacerbation (principal); R60.0 Localized edema
CPT/HCPCS: 36415; 71275; 74174; 80053; 81001; 82803; 83605; 83690; 83880; 84484; 85025; 87631; 93005; 94640; 99284; Q9967

== ENCOUNTER 2024-03-13 21:10 | Outpatient (CLI) | payer MEDICARE, BC, SELFPAY | END 2024-03-13 21:11 | disposition home or self-care (01) | LOC: AMB 03-15 21:46 | PROVIDERS: PCP Family Medicine; Visit Provider Family Medicine | DX: S79.911A Unspecified injury of right hip, initial encounter (principal); W18.30XA Fall on same level, unspecified, initial encounter; Y92.009 Unspecified place in unspecified non-institutional (private) residence as the place of occurrence of the external cause | CPT/HCPCS: A0425; A0427 ==

== ENCOUNTER 2024-03-13 21:43 | Inpatient (IN) | payer MEDICARE, BC, SELFPAY ==
--- NOTE | 2024-03-13 21:53 | ED_ITS ---
HPI - General Adult General Chief complaint: Hip Injury/Pain Stated complaint: Hip Fracture Time Seen by Provider: 03/13/24 21:53 History of Present Illness HPI narrative: pt sitting down onto chair and missed, fell to butt. states R hip pain, no hx of injury to that area prior. denies head impact or other pain. pt on o2 2L chronic. pt unsure of her medication list . did have a glass or two of wine tonight. pt lives at home alone. ems started IV L AC 20g, no meds given 79-year-old woman presenting to the emergency department with complaint of right hip pain. Lives independently and went to sit down in her chair and thinks that it must of spinal out of the way. There was a Bang and she ended up on the floor in pain. EMS brought in to this emergency department. Did have some wine tonight. She is feeling some stress generally anticipating arrival of numerous far flung family members. Other than this stress she was in her usual state of health. Denies that she hit her head. No loss of consciousness. No neck or back pain. No new shortness of breath but is maintained on 2 L oxygen via nasal cannula for COPD. Does not take anticoagulation. She says she is supposed to take an aspirin daily but she often forgets. Underlying history of diastolic heart failure. Echocardiogram from December 2022 shows normal LV size moderately increased wall thickness with an EF estimated at greater than 75%. Only with trace tricuspid regurgitation. Related Data Home Medications ?Medication ?Instructions ?Recorded ?Confirmed albuterol sulfate 90 mcg/actuation 2 puff inhalation Q4H PRN 04/24/22 12/24/23 aerosol inhaler (Ventolin HFA) cyanocobalamin (vitamin B-12) 1,000 mcg IM Q30D 12/18/22 12/24/23 1,000 mcg/mL injection kit fexofenadine-pseudoephedrine ER 1 tab PO DAILY PRN 12/18/22 12/24/23 180 mg-240 mg tablet,ext.release 24 hr (24HR Allergy-Congestion Relief) fluticasone propionate 50 2 spray intranasal DAILY PRN 12/18/22 12/24/23 mcg/actuation nasal spray,suspension ipratropium 0.5 mg-albuterol 3 mg 3 ml inhalation QID PRN 12/18/22 12/24/23 (2.5 mg base)/3 mL nebulization soln Trelegy PO 11/28/23 acetaminophen 500 mg capsule 1,000 mg PO Q6H PRN 11/28/23 12/24/23 aspirin 81 mg tablet,delayed 81 mg PO QDAY 11/28/23 12/24/23 release rosuvastatin 10 mg tablet 10 mg PO QDAY 11/28/23 12/24/23 torsemide 20 mg tablet 20 mg PO QDAY 11/28/23 03/06/24 spironolactone 25 mg tablet PO 03/06/24 Previous Rx's ?Medication ?Instructions ?Recorded Home Oxygen #1 ea 12/20/22 cholecalciferol (vitamin D3) 25 25 mcg PO QDAY #90 tabs 06/20/23 mcg (1,000 unit) tablet Cymbalta 20 mg capsule,delayed 20 mg PO QDAY #90 caps 11/28/23 release (duloxetine) omeprazole 40 mg capsule,delayed 40 mg PO DAILY #30 caps 03/06/24 release prednisone 20 mg tablet 20 mg PO DAILY #10 tabs 03/06/24 Allergies Allergy/AdvReac Type Severity Reaction Status Date / Time erythromycin base Allergy Intermediate dry heaves Verified 03/06/24 10:01 Penicillins Allergy Intermediate Shortness Verified 03/06/24 10:01 of Breath & Fainting tetanus toxoid, adsorbed Allergy Intermediate Dizziness Verified 03/06/24 10:01 & Fainting codeine AdvReac Mild Rash Verified 03/06/24 10:01 alendronate sodium AdvReac Unknown Gastrointestinal Verified 03/06/24 10:01 [From Fosamax] Upset Review of Systems Status of ROS: Reports: 6 or more systems reviewed and unremarkable except as noted in History and below [facility] Medical History Normal cardiac stress test (~01/2023) ALLIE (obstructive sleep apnea) ?G47.33 - Obstructive sleep apnea (adult) (pediatric) (ICD-10) Iron deficiency anemia (2019) ?D50.9 - Iron deficiency anemia, unspecified (ICD-10) Subarachnoid hemorrhage following injury (10/2018) ?S06.6XAA - Traumatic subarachnoid hemorrhage with loss of consciousness status unknown, initial encounter (ICD-10) Ascending aorta dilation ?I77.810 - Thoracic aortic ectasia (ICD-10) Dyspnea on exertion ?R06.09 - Other forms of dyspnea (ICD-10) B12 deficiency ?E53.8 - Deficiency of other specified B group vitamins (ICD-10) TIA (transient ischemic attack) (~2018) ?G45.9 - Transient cerebral ischemic attack, unspecified (ICD-10) Pulmonary hypertension ?I27.20 - Pulmonary hypertension, unspecified (ICD-10) Hearing loss of both ears ?H91.93 - Unspecified hearing loss, bilateral (ICD-10) IBS (irritable bowel syndrome) ?K58.9 - Irritable bowel syndrome without diarrhea (ICD-10) Macular degeneration ?H35.30 - Unspecified macular degeneration (ICD-10) Weakness generalized ?R53.1 - Weakness (ICD-10) Thyroid nodule ?E04.1 - Nontoxic single thyroid nodule (ICD-10) Osteopenia ?M85.80 - Other specified disorders of bone density and structure, unspecified site (ICD-10) Depression ?F32.A - Depression, unspecified (ICD-10) Diastolic heart failure (10/2022) ?I50.30 - Unspecified diastolic (congestive) heart failure (ICD-10) Essential hypertension ?I10 - Essential (primary) hypertension (ICD-10) Cigarette nicotine dependence ?F17.210 - Nicotine dependence, cigarettes, uncomplicated (ICD-10) NYHA class 3 heart failure with preserved ejection fraction ?I50.30 - Unspecified diastolic (congestive) heart failure (ICD-10) Fibromyalgia ?M79.7 - Fibromyalgia (ICD-10) Chronic back pain ?M54.9 - Dorsalgia, unspecified (ICD-10) ?G89.29 - Other chronic pain (ICD-10) COPD (chronic obstructive pulmonary disease) ?J44.9 - Chronic obstructive pulmonary disease, unspecified (ICD-10) Acute on chronic respiratory failure with hypoxia and hypercapnia (12/20/22) ?J96.21 - Acute and chronic respiratory failure with hypoxia (ICD-10) ?J96.22 - Acute and chronic respiratory failure with hypercapnia (ICD-10) Surgical History History of colonoscopy with polypectomy ?Z98.890 - Other specified postprocedural states (ICD-10) ?Z86.010 - Personal history of colonic polyps (ICD-10) 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 Long time and current smoker, not ready to quit Smoking Status: Current every day smoker What tobacco products do you use: cigarettes Smoking packs per day: 0.5 Smoking cigarettes per day: 10.0 Do you use any of these nicotine containing products: None Second hand tobacco smoke exposure: No How often do you have a drink containing alcohol: 4 or more times a week Alcohol type: wine Alcohol type details: 1 glass of wine a night How many standard drinks containing alcohol do you have on a typical day: 1 or 2 How often do you have six or more drinks on one occasion: Never AUDIT-C Alcohol total score: 4 Non-prescribed substance use: denies use Caffeine: No Little interest or pleasure in doing things: more than half the days Feeling down, depressed, or hopeless: more than half the days service: No Exam Narrative: Exam Narrative: Calm in no particular stress. Blood pressure noted to be elevated. Subtly labored in her breathing. Diminished breath sounds throughout. Oxygen via nasal cannula in place. Heart in regular rate and rhythm. Distant. Abdomen is soft and nontender. No pain to palpation over neck or back. She does have pain to palpation at the right hip particularly at the greater trochanter. Admits that it radiates into the groin little bit. Moving all extremities other than favoring the right leg not wanting to move it due to pain. Well-perfused peripherally. Freshly painted toenails. Right leg is internally rotated little bit and shorter. Const: Vital Signs, click to edit/add: Vital Signs - 24 hr 03/13/24 21:54 03/13/24 22:09 03/13/24 22:41 Temperature 99.0 F Pulse Rate [Pulse Oximeter] 79 97 Respiratory Rate 18 18 Blood Pressure [Ri ght Upper Arm] 186/112 H 177/115 H Pulse Oximetry 99 99 98 Oxygen Delivery Me thod Nasal Cannula Nasal Cannula Nasal Cannula Oxygen Flow Rate 2 2 2 Documenting provider has reviewed patient's vital signs: yes Course Vital Signs Vital signs: Initial Vital Signs Temperature 99.0 F 03/13/24 21:54 Temperature Source Temporal Artery Scan 03/13/24 21:54 Pulse Rate 79 03/13/24 21:54 Pulse Rhythm Regular 03/13/24 21:54 Respiratory Rate 18 03/13/24 21:54 Blood Pressure 186/112 H 03/13/24 21:54 Blood Pressure Mean 136 H 03/13/24 21:54 Blood Pressure Position Sitting 03/13/24 21:54 Pulse Oximetry 99 03/13/24 21:54 Oxygen Delivery Method Nasal Cannula 03/13/24 21:54 Oxygen Flow Rate 2 03/13/24 21:54 Vital Signs Temperature 99.0 F 03/13/24 21:54 Pulse Rate 79 03/13/24 21:54 Respiratory Rate 18 03/13/24 21:54 Blood Pressure 186/112 H 03/13/24 21:54 Pulse Oximetry 99 03/13/24 21:54 Oxygen Delivery Method Nasal Cannula 03/13/24 21:54 Oxygen Flow Rate 2 03/13/24 21:54 Temperature 99.0 F 03/13/24 21:54 Pulse Rate 97 03/13/24 22:41 Respiratory Rate 18 03/13/24 22:41 Blood Pressure 177/115 H 03/13/24 22:41 Pulse Oximetry 98 03/13/24 22:41 Oxygen Delivery Method Nasal Cannula 03/13/24 22:41 Oxygen Flow Rate 2 03/13/24 22:41 Medications Administered Medications: Generic Name Dose Route Start Last Admin Trade Name Freq PRN Reason Stop Dose Admin Sodium Chloride 500 mls @ 500 mls/hr 03/13/24 22:36 03/13/24 23:20 0.9 % Sodium Chloride 500 Ml IV 03/13/24 23:35 Infused .Q1H ONE Infusion Morphine Sulfate 4 mg 03/13/24 22:09 03/13/24 22:20 Morphine 4 Mg/Ml Inj IVP 03/13/24 22:10 4 mg ONCE ONE Administration Medical Decision Making MDM Narrative Medical decision making narrative: I would suspect hip fracture here. Certainly could be pelvic fracture otherwise. Does not seem to have symptoms consistent with a lumbar fracture. This sounds to have been a a trip and fall event or at least dropping into her chair that may have been affected partly by alcohol consumption. I am anticipating admission for consideration of surgery. Images are pending. She does not feel she needs anything for pain at the moment at least when at rest but admits that with manipulation for imaging it would be helpful. Does have chronic back pain but does not take regular opiates. Will be given morphine for pain. 500 mL normal saline. X-ray of the right hip reviewed by me looks to show a femoral neck fracture. Pain is controlled but transient nausea presumably from morphine. I have called to consult Orthopedics and informed hospitalist. 1 view chest radiograph COMPARISON: None. FINDINGS: Devices: Partially visualized abdominal aortic stent. Lung volumes are good. No focal or diffuse opacities. No pleural effusion. No pneumothorax. Heart size is normal when accounting for patient rotation towards the right. Patient could not tolerate lying flat for the exam due to pain. No rib fracture seen. IMPRESSION: Lungs clear. No rib fracture seen. AP pelvis, AP right hip, cross-table lateral right hip COMPARISON: None FINDINGS: Acute right femoral neck fracture. The distal femur is proximally migrated and there is increased angulation at the femoral head neck junction. There is mild to moderate right hip osteoarthritis. Generally low bone mineralization without focally destructive lesion seen. Aorto bi-iliac stent graft. Atherosclerotic vascular calcifications. IMPRESSION: Acute mildly angulated right femoral neck fracture. Medical Records Medical records reviewed: Yes I reviewed the patient's medical records Lab Data Lab results reviewed: Yes I reviewed the patient's lab results Labs: Lab Results 03/13/24 03/13/24 Range/Units 22:12 22:17 WBC 8.19 (4.50-11.00) K/uL RBC 3.79 L (4.00-5.20) m/uL Hgb 11.2 L (12.0-16.0) gm/dL Hct 36.3 (33.0-51.0) % MCV 96 (80-100) fL MCH 30 (26-34) pg MCHC 31 L (32-36) gm/dL RDW Coeff of Lane 16.3 H (11.5-15.5) % Plt Count 215 (140-440) K/uL Neut % (Auto) 70.9 (42.0-72.0) % Lymph % (Auto) 17.0 L (20-44) % Taney % (Auto) 8.9 (0.0-11.0) % Eos % (Auto) 2.6 (0.0-7.0) % Baso % (Auto) 0.4 (0.0-3.0) % Neut # (Auto) 5.81 (1.7-7.0) K/uL Lymph # (Auto) 1.40 (0.90-2.90) K/uL Taney # (Auto) 0.70 (0.00-0.90) K/UL Eos # (Auto) 0.21 (0.00-0.50) K/uL Baso # (Auto) 0.03 (0.00-0.30) K/uL Abs Immat Gran (auto) 0.02 (0.00-0.30) K/uL Imm/Tot Granulo (auto) 0.2 % Sodium 136 (135-149) mmol/L Potassium 4.4 (3.6-5.1) mmol/L Chloride 99 (96-114) mmol/L Carbon Dioxide 32 (20-32) mmol/L Anion Gap 5 L (7-15) mEq/L BUN 16 (7-30) mg/dL Creatinine 0.7 (0.5-1.5) mg/dL Estimated Creat Clear 31.03 Estimated GFR 88 ml/min Glucose 91 (60-115) mg/dL Calcium 9.1 (8.4-10.6) mg/dL Ethyl Alcohol 0.03 (0.01-0.03) % Discharge Plan Discharge Clinical Impression: Closed hip fracture, COPD (chronic obstructive pulmonary disease) Patient Disposition: Admitted As Observation Condition: Stable
[2024-03-13 21:54] VITALS: BP 186/112; PULSE 79; RESP 18; TEMP 37.2; O2SAT 99; BMI 13.6
--- NOTE | 2024-03-13 22:04 | CRLHL7_ITS ---
For Patients: As a result of the Century Cures Act, medical imaging exams and procedure reports are released immediately into your electronic medical record. You may view this report before your referring provider. If you have questions, please contact your health care provider. INDICATION: : Fall, right hip pain TECHNIQUE: AP pelvis, AP right hip, cross-table lateral right hip COMPARISON: None FINDINGS: Acute right femoral neck fracture. The distal femur is proximally migrated and there is increased angulation at the femoral head neck junction. There is mild to moderate right hip osteoarthritis. Generally low bone mineralization without focally destructive lesion seen. Aorto bi-iliac stent graft. Atherosclerotic vascular calcifications. IMPRESSION: Acute mildly angulated right femoral neck fracture. Dictated by Justine Light MD @ 03/13/2024 11:08:25 PM (Electronically Signed)
--- NOTE | 2024-03-13 22:04 | CRLHL7_ITS ---
For Patients: As a result of the Cures Act, medical imaging exams and procedure reports are released immediately into your electronic medical record. You may view this report before your referring provider. If you have questions, please contact your health care provider. INDICATION: Fall TECHNIQUE: 1 view chest radiograph COMPARISON: None. FINDINGS: Devices: Partially visualized abdominal aortic stent. Lung volumes are good. No focal or diffuse opacities. No pleural effusion. No pneumothorax. Heart size is normal when accounting for patient rotation towards the right. Patient could not tolerate lying flat for the exam due to pain. No rib fracture seen. IMPRESSION: Lungs clear. No rib fracture seen. Dictated by Justine Light MD @ 03/13/2024 11:13:40 PM (Electronically Signed)
[2024-03-13 22:09] VITALS: O2SAT 99
--- OUTSIDE RECORDS SUMMARY | 2024-03-13 22:10 | XMS_ITS | Clinical Summary ---
Author Organization [facility] Address [address] [place] [address] Care Team Providers Care Telegraph Service Clerk Name Role Phone Erinn Reina M.D. Primary Care Provider Source Comments Patient records contain information from all sites at [facility]. For routine questions regarding patient records, call [phone] during business hours, M-F 8:00 AM - 5:00 PM Central Time. Record requests for emergency care only can be directed to [phone] at any time.[facility] Allergies Active Allergy Reactions Criticality Noted [...] 30- 60py cumulative smoking history. 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 In Nov 2021, she [...] Encounters Date Type Department Care Team Description 03/10/2024 9:15 AM CDT Clinical Support Department of Physical Medicine and Rehabilitation in [place], [place] [address] [place] [address] Rod Collins M.D. Elana Winters, P.T. Pain Low Back Unspecified (Primary Dx); Osteoporosis; Pain Back 03/04/2024 1:30 PM CDT Office Visit Division of Pulmonary Medicine in [place], [place] [address] [place] [phone] Arjun Umana M.D. Chronic Obstructive Pulmonary Disease (HCC) (Primary Dx); Hypertension Pulmonary (HCC); Chronic Right Heart Failure (HCC); Nicotine Dependence Cigarettes; Abdominal Pain 02/19/2024 Clinical Communication Division of Pulmonary Medicine in [place], [place] [address] [place] [address] Seun Bey M.D. Xcell energy form 02/18/2024 10:45 AM CDT Comprehensive Visit Department of Physical Medicine and Rehabilitation in [place], [place] [address] [place] [address] Rod Collins M.D. Ambroz, Colleen P, P.T. Pain Back (Primary Dx); Osteoporosis; Pain Low Back Unspecified 02/05/2024 Orders Only Division of Endocrinology in [place], [place] [address] [place] [address] Rod Collins M.D. Osteoporosis (Primary Dx); Pain Low Back Unspecified; Pain Back 02/04/2024 10:00 AM CDT Clinical Support Department of Physical Medicine and Rehabilitation in [place], [place] [address] [place] [address] Tony Schwartz P.A.-C. Ambroz, Colleen P, P.T. Fibromyalgia (Primary Dx); Pain Low Back Unspecified 02/04/2024 Clinical Communication Division of Endocrinology in [place], [place] [address] [place] [address] Rod Collins M.D. 02/01/2024 Orders Only Division of Endocrinology in [place], [place] [address] [place] [address] Rod Collins M.D. Anemia Iron Deficiency (Primary Dx); Osteoporosis 01/29/2024 10:45 AM CDT Clinical Support Department of Physical Medicine and Rehabilitation in [place], [place] [address] [place] [address] Tony Schwartz P.A.-C. Ambroz, Colleen P, P.T. Fibromyalgia (Primary Dx); Pain Low Back Unspecified 01/29/2024 Clinical Communication Department of Family Medicine, [facility], in [place], [place] [address] [place] [address] Erinn Reina M.D. 01/28/2024 9:00 AM CDT Comprehensive Visit Division of Endocrinology in [place], [place] [address] [place] [address] Jesus Feng APRN, C.N.PRod Suarez M.D. Osteoporosis (Primary Dx); Pain Back; Fracture Vertebra Compression Thoracic Closed Initial (HCC) 01/17/2024 12:45 PM CDT Clinical Support Department of Physical Medicine and Rehabilitation in [address] [address] Tony Schwartz P.A.-C. Ambroz, Colleen P, P.T. Fibromyalgia (Primary Dx); Pain Low Back Unspecified 01/15/2024 11:30 AM CDT - 01/15/2024 11:59 PM CDT Hospital Encounter Department of Laboratory Medicine in [address] [phone] Vitor Calle M.D. Dyspnea Multifactorial; Anemia Iron Deficiency Discharge Disposition: Home or Self Care 01/09/2024 Orders Only Department of Vascular Medicine in [place], [place] [address] [place] [address] Tony Schwartz P.A.-C. Anemia Iron Deficiency (Primary Dx) 01/08/2024 11:30 AM CDT Office Visit Department of Cardiovascular Diseases in [address] [address] Vitor Calle M.D. Dyspnea Multifactorial (Primary Dx) 01/07/2024 Orders Only [facility] PCP TH MNT Erinn Reina M.D. 01/06/2024 12:30 PM CDT Clinical Support Department of Physical Medicine and Rehabilitation in [place], [place] [address] [place] [address] Tnoy Schwartz P.A.-C. Ambroz, Colleen P, P.T. Fibromyalgia; Pain Low Back Unspecified 01/02/2024 9:15 AM CDT Clinical Support Department of Physical Medicine and Rehabilitation in [place], [place] [address] [place] [address] Tony Schwartz P.A.-C. Ambroz, Colleen P, P.T. Fibromyalgia (Primary Dx); Pain Low Back Unspecified 01/01/2024 1:14 PM CDT - 01/01/2024 11:59 PM CDT Hospital Encounter Department of Cardiovascular Diseases in [place], [place] [address] [place] [address] Vitor Calle M.D. Dilated Aortic Root (HCC); Dyspnea Multifactorial Discharge Disposition: Home or Self Care 12/26/2023 10:45 AM CDT Clinical Support Department of Physical Medicine and Rehabilitation in [place] [address] [place] [address] Tony Schwartz P.A.-C. Ambroz, Elana Alves, P.T. Fibromyalgia (Primary Dx); Pain Low Back Unspecified from Last 3 Months Immunizations Name Administration [...] Relation Name Status Comments Mother Sister Carol hagen Son Jose Antonio Rivera Social History Tobacco Use Types Packs/Day [...] declined 03/05/2022 How often do you attend [facility] or jew services? 1 to 4 times per year 03/05/2022 Do you belong to any clubs o r organizations such as evangelical groups, unions, fraternal or athletic groups, or [...] Answer Date Recorded PHQ-2 Score 1 08/15/2022 [facility] - Occupational Stress Questionnaire Answer Date [...] your living situation today? I have a [facility] place to live 04/10/2023 Education Answer Date Recorded What is the highest level of school you have completed or the highest degree you have received? 12th grade 04/14/2019 Sex and Gender Information Value Date Recorded Sex Assigned at Female 10/24/2023 10:51 PM MUSIC TYPOGRAPHER Gender Identity Female 02/10/2019 11:51 AM CDT Sexual Orientation Straight 02/10/2019 11 :51 AM CDT Last Filed Vital Signs Vital Sign Reading Time Taken Comments Blood Pressure 105/74 03/04/2024 1:14 PM CDT Pulse 111 03/04/2024 1:14 PM CDT Temperature 36.6 ??C (97.8 ??F) 03/04/2024 1 :14 PM CDT Respiratory Rate 18 12/03/2022 3:20 PM MUSIC TYPOGRAPHER Oxygen Saturation 73% 03/04/2024 1:1 4 PM [...] Care Team (Late st Contact Info) Description 03/17/2024 9:15 AM CDT Clinical Support Department of Physical Medicine and Rehabilitation in [place], [place] [address] [place] [address] Rod Collins M.D. [address] [place] [address] Elana Winters, P.T. [address] [place] [address] 03/24/2024 12:45 PM CDT Clinical Support Department of Physical Medicine and Rehabilitation in [place], [place] [address] [place] [address] Rod Collins M.D. [address] [place] [address] Elana Winters, P.T. [address] [place] [address] 03/31/2024 12:45 PM CDT Clinical Support Department of Physical Medicine and Rehabilitation in [place], [place] [address] [place] [address] Rod Collins M.D. [address] [place] [phone] Elana Winters P, P.T. [address] [place] [phone] 04/07/2024 12:45 PM CDT Clinical Support Department of Physical Medicine and Rehabilitation in [place], [place] [address] [place] [address] Rod Collins M.D. [address] [place] [phone] Elana Winters, P.T. [address] [place] [phone] 04/14/2024 12:45 PM CDT Clinical Support Department of Physical Medicine and Rehabilitation in [place], [place] [address] [place] [address] Rod Collins M.D. [address] [place] [phone] Elana Winters, P.T. [address] [place] [phone] 04/21/2024 12:45 PM CDT Clinical Support Department of Physical Medicine and Rehabilitation in [place], [place] [address] [place] [address] Rod Collins M.D. [address] [place] [address] Elana Winters, P.T. [address] [place] [phone] 04/28/2024 12:45 PM CDT Clinical Support Department of Physical Medicine and Rehabilitation in [place], [place] [address] [place] [address] Rod Collins M.D. [address] [place] [address] Elana Winters, [place] [phone] Health Maintenance Due Date Last Done Comments [...] Discontinued 11/01/2023 Medical Devices Implanted Type Area Sock Examiner Device Identifier Shelf Expiration Date Model / Serial / Lot Stnt Visi Pro Otw [id number] - [id number] Implanted:Qt y: 1 on 05/04/2019 by Tyson Liao M.D. at [facility] Biliary Stent N/A: Arterial Medtronic 09/24/2019 [id number] / / [id number] Description:SMA #2 Stnt Visi Pro Otw [id number] - [id number] Implanted:Qt y: 1 on 05/04/2019 by Tyson Liao M.D. at [facility] Biliary Stent Right: Arterial Medtronic 03/23/2021 [id number] / / [id number] Description:Celiac Artery #2 Stnt Icast Atrm Cov [id number] - [id number] - [id number] Implanted:Qt y: 1 on 05/04/2019 by Tyson Liao M.D. at [facility] Respiratory Stent Right: Arterial Atrium 02/18/2022 [id number] / [id number] / Description:Right Renal Emma ry Stnt Icast Atrm Cov [id number] - [id number] - [id number] Implanted:Qt y: 1 on 05/04/2019 by Tyson Liao M.D. at [facility] Respiratory Stent Right: Arterial Atrium 02/06/2022 [id number] / [id number] / Description:Left renal arter y Stnt Icast Atrm Cov [id number] - [id number] - [id number] Implanted:Qt y: 1 on 05/04/2019 by Tyson Liao M.D. at [facility] Respiratory Stent Right: Arterial Atrium 03/27/2022 [id number] / [id number] / Description:SMA Stnt Icast Atrm Cov [id number] - [id number] - [id number] Implanted:Qt y: 1 on 05/04/2019 by Tyson Liao M.D. at [facility] Respiratory Stent Right: Arterial Atrium 01/29/2022 [id number] / [id number] / Description:Left renal arter y Stnt Icast Atrm Cov [id number] - [id number] - [id number] Implanted:Qt y: 1 on 05/04/2019 by Tyson Liao M.D. at [facility] Respiratory Stent Right: Arterial Atrium 03/27/2022 [id number] / [id number] / Description:Celiac Artery Usp-Hatdrj-L enestrated-P natali Stent Graft Implanted:Qt y: 1 on 05/04/2019 by Tyson Liao M.D. at [facility] Stent Other N/A: Aorta [employer] [id number] 03/23/2022 [id number] / / [id number] Aaa-Bifurcat ed-Graft Implanted:Qt y: 1 on 05/04/2019 by Tyson Liao M.D. at [facility] Stent Other N/A: Aorta [employer] [id number] 03/17/2022 [id number] / / [id number] Grft Znt Ilc Ext [id number] - [id number] Implanted:Qt y: 1 on 05/04/2019 by Tyson Liao M.D. at [facility] Vascular Graft Left: Arterial [employer] 12/02/2021 [id number] / / [id number] Description:Left Iliac Stnt Innova Otw [id number] - [id number] Implanted:Qt y: 1 on 05/04/2019 by Tyson Liao M.D. at [facility] Vascular Stent Right: Arterial Property [employer] 11/03/2020 [id number] / / [id number] Description:Right Renal Emma ry Procedures Procedure Name Priority Date/Time Associated Diagnosis Comments ARTERIAL BLOOD GAS - PULMONARY CLINIC Routine 03/04/2024 2:42 PM CDT Chronic Obstructive Pulmonary Disease (HCC) TISSUE TRANSGLUTAMINASE (TTG) AB, IGA, S Routine 01/28/2024 10:16 AM CDT IA T4 FREE Routine 01/28/2024 10:16 AM CDT [...] BILATERAL WITH TOMOSYNTHESIS Routine 09/16/2019 10:[address] CHEST WITHOUT IV CONTRAST Routine 08/2019 10:02 AM MUSIC TYPOGRAPHER from Last 3 Months or Most Recently [...] CDT Arjun Umana M.D. LAB BLOOD ADD-ON [facility] [address] [place] [address], [facility] [address] [place] [address] * Quantitative M-protein Study (01/28/2024 10:16 AM CDT) Pathologist [facility] Immunoglobulin A (IgA), S 304 61 - [...] developed and its performance characteristics determined by [facility] in a manner consistent with CLIA requirements. This test has not been cleared or approved by the U.S. Food and Drug Administration. Blood (Blood, Venous) 01/28/2024 10:16 AM CDT 01/28/2024 2:02 PM CDT Narrative [facility] - 01/29/2024 12:53 PM CDT Specimen Information: Specimen ID: [id number] Specimen Type: Blood Specimen Collection Start Date: 01/28/2024 10:16 AM Specimen Received Date: 01/28/2024 ??2:02 PM Specimen ID: [id number] Specimen Type: Blood Specimen Collection Start Date: 01/28/2024 10:16 AM Specimen Received Date: 01/28/2024 ??1:55 PM Rod Perales M.D. LAB BLOOD ADD-ON [facility] [address] [place] [address] [facility] [address] [place] [address] [place] [phone] [place] [address] [place] [address] * T4 (Thyroxine), Free, Serum (01/28/2024 10:16 AM CDT) T4 (Thyroxine), Free, S 1.0 0.9 - 1.7 ng/dL 01/28/2024 11:30 AM CDT DT Blood 01/28/2024 10:1 6 AM CDT 01/28/2024 10:42 AM CDT Rod Perales M.D. LAB BLOOD ADD-ON [facility] [address] [place] [address], [facility] [address] [place] [address] * (ABNORMAL) Thyroid Function [place] (01/28/2024 10:16 AM CDT) TSH, Sensitive 4.4(H) 0.3 - 4.2 mIU/L 01/28/2024 11:09 AM CDT DT Blood (Blood, Venous) 01/28/2024 10:16 AM CDT 01/28/2024 10:42 AM CDT Rod Perales M.D. LAB BLOOD ADD-ON Performing Organization Address City/[facility]/ZIP Co de Phone Number [facility] [address] [place] [address], [facility] DTL [facility][note 3] [address] [place] [address] * Celiac Disease Serology [place] (01/28/2024 10:16 AM CDT) Immunoglobulin A (IgA), S 304 61 - 356 mg/dL 01/28/2024 2:56 PM CDT [facility] Celiac Disease Interpretation See Comment: Negative serology. Celiac disease unlikely. However, approximately 10% of patients with celiac disease are seronegative. Also, patients who are already adhering to a gluten-free diet may be seronegative. If celiac disease is highly clinically suspected, consider HLA-DQ typing. 01/28/2024 9:15 PM CDT [facility] Blood (Blood, Venous) 01/28/2024 10:16 AM CDT 01/28/2024 2:02 PM CDT Narrative [facility] - 01/28/2024 9:15 PM CDT Specimen Information: Specimen ID: [id number] Specimen Type: Blood Specimen Collection Start Date: 01/28/2024 10:16 AM Specimen Received Date: 01/28/2024 ??2:02 PM Specimen ID: [id number] Specimen Type: Blood Specimen Collection Start Date: 01/28/2024 10:16 AM Specimen Received Date: 01/28/2024 ??2:00 PM Rod Perales M.D. LAB BLOOD ADD-ON [facility] [address] [place] [address] [facility] [address] [place] [address] [facility] [address] [place] [address] [place] [address] * Thyroperoxidase (TPO) Antibodies (01/28/2024 10:16 AM CDT) Thyroperoxidase Ab, S 18.5 <34.0 IU/mL 01/28/2024 11:30 AM CDT DT Blood 01/28/2024 10:1 6 AM CDT 01/28/2024 10:42 AM CDT Rod Perales M.D. LAB BLOOD ADD-ON Performing Organization Address City/[facility]/ZIP Co de Phone Number [facility] [address] [place] [address], [facility] [address] [place] [address] * tTG (Tissue Transglutaminase), Antibody, IgA (01/28/2024 10:16 AM CDT) Pathologist [facility] Tissue Transglutaminase Ab, IgA, S <1.2 <4.0 (Negative ) U/mL 01/28/2024 6:42 PM CDT [facility] Blood 01/28/2024 10:1 6 AM CDT 01/28/2024 3:19 PM CDT Rod Perales M.D. LAB BLOOD ADD-ON Performing Organization Address City/[facility]/ZIP Co de Phone Number [facility] [address] [place] [address] [facility] [address] [place] [address] * Connective Tissue Diseases [place] (01/28/2024 10:16 AM CDT) Antinuclear Ab, S 0.1 <=1.0 (Negative ) U 01/28/2024 7:56 PM CDT [facility] Comment: ----ADDITIONAL INFORMATION---- Method: Enzyme-linked immunoassay using HEp-2 nuclear extract supplemented with purified antigens. Cyclic Citrullinated Peptide Ab, S <15.6 <20.0 (Negative ) U 01/28/2024 6:40 PM CDT [facility] Interpretation SEE COMMENT 7:56 PM CDT [facility] Comment: Tests for antibodies to dsDNA and DERIC antigens are not performed automatically unless the TERRI result is > or = 3.0 U. ??Studies performed at [facility] indicate that positive TERRI results <3.0 U are rarely accompanied by positive second order tests. Blood (Blood, Venous) 01/28/2024 10:16 AM CDT 01/28/2024 1:59 PM CDT Rod Perales M.D. LAB BLOOD ADD-ON Performing Organization Address [facility]/ZIP Co de Phone Number [facility] [address] [place] [address] [facility] [address] [place] [address] * (ABNORMAL) 25-Hydroxyvitamin D2 and D3 (01/28/2024 10:16 AM CDT) [facility] 25-Hydroxy D2 <4.0 ng/mL 01/30/2024 9:01 AM CDT [facility] 25-Hydroxy D3 18 ng/mL 01/30/2024 9:01 AM CDT [facility] 25-Hydroxy D Total 18(L) ng/mL 2023 9:01 AM CDT [facility] Comment: Interpretation: 10-19 ng/mL (mild to moderate deficiency) ----REFERENCE VALUE---- 25-HYDROXY D TOTAL (D2+D3) Optimum levels in the healthy population are 20-50. ----ADDITIONAL INFORMATION---- This test was developed and its performance characteristics determined by [facility] in a manner consistent with CLIA requirements. This test has not been cleared or approved by the U.S. Food and Drug Administration. Blood (Blood, Venous) 01/28/2024 10:16 AM CDT 01/28/2024 1:32 PM CDT Rod Perales M.D. LAB BLOOD ADD-ON Performing Organization Address [facility]/ZIP Co de Phone Number [facility] [address] [place] [address] [facility] [address] [place] [address] [place] [address] * Dehydroepiandrosterone Sulfate (DHEA-S) (01/28/2024 10:16 AM CDT) Dehydroepiandrosterone Sulfate, S 72 5.3 - 124 mcg/dL 01/28/2024 3:53 PM CDT [facility] Blood (Blood, Venous) 01/28/2024 10:16 AM CDT 01/28/2024 2:58 PM CDT Rod Perales M.D. LAB BLOOD ADD-ON Performing Organization Address City/[facility]/ZIP Co de Phone Number [facility] [address] [place] [address] [facility] [address] [place] [address] * Sedimentation Rate (01/28/2024 10:16 AM CDT) Pathologist [facility] Sedimentation Rate, B 8 3 - 28 mm/h 01/28/2024 11:48 AM CDT DT Blood (Blood, Venous) 01/28/2024 10:16 AM CDT 01/28/2024 10:30 AM CDT Rod Perales M.D. LAB BLOOD ADD-ON Performing Organization Address [facility] Co de Phone Number [facility] [address] [place] [address], [facility] [address] [place] [address] * (ABNORMAL) CBC with Differential, Blood (01/28/2024 10:16 AM CDT) Only the most recent of2 resultswithin the time period is included. Pathologist [facility] Hemoglobin 12.5 11.6 - 15.0 g/dL 01/28/2024 [...] CDT Rod Perales M.D. LAB BLOOD ADD-ON [facility] [address] [place] [address], [facility] DTL [facility][note 3] [address] [place] [address] DHPM [facility][note 3] [address] [place] [address] * Rheumatoid Factor (01/28/2024 10:16 AM CDT) Pathologist [facility] Rheumatoid Factor, S <15 <15 IU/mL 01/28/2024 3:40 PM CDT [facility] Blood (Blood, Venous) 01/28/2024 10:16 AM CDT 01/28/2024 3:01 PM CDT Rod Perales M.D. LAB BLOOD ADD-ON [facility] [address] [place] [address] [facility] [address] [place] [address] * CRP (C-Reactive Protein) (01/28/2024 10:16 AM CDT) Pathologist [facility] C-Reactive Protein (CRP), S <3.0 <5.0 mg/L 01/28/2024 11:09 AM CDT DTL Blood (Blood, Venous) 01/28/2024 10:16 AM CDT 01/28/2024 10:42 AM CDT Rod Perales M.D. LAB BLOOD ADD-ON Performing Organization Address City/[facility]/ZIP Co de Phone Number [facility] [address] [place] [address] * Ferritin (01/28/2024 10:16 AM CDT) Only the most recent of2 resultswithin the time period is included. [facility] Ferritin, S 262 11 - 328 mcg/L 01/28/2024 11:09 AM CDT DT Blood (Blood, Venous) 01/28/2024 10:16 AM CDT 01/28/2024 10:42 AM CDT Rod Perales M.D. LAB BLOOD ADD-ON [facility] [address] [place] [address] * CK (Creatine Kinase) (01/28/2024 10:16 AM CDT) Pathologist [facility] Creatine Kinase (CK), S 116 26 - 192 U/L 01/28/2024 11:09 AM CDT DT Blood (Blood, Venous) 01/28/2024 10:16 AM CDT 01/28/2024 10:42 AM CDT Rod Perales M.D. LAB BLOOD ADD-ON Performing Organization Address [facility] Co de Phone Number [facility] [address] [place], [place] [address] [address] [place] [address] * Cortisol (01/28/2024 10:16 AM CDT) Cortisol, Random, S 12 mcg/dL 01/28/2024 11:09 AM CDT DTL Comment: ----REFERENCE VALUE---- AM (4450-4129): 4.8-20 PM ([id number]): 2.5-12 Blood (Blood, Venous) 01/28/2024 10:16 AM CDT 01/28/2024 10:42 AM CDT Rod Perales M.D. LAB BLOOD ADD-ON Performing Organization Address [facility] de Phone Number [facility] [address] [place] [address], [facility] [address] [place] [address] * (ABNORMAL) Comprehensive Metabolic Panel (01/28/2024 10:16 [...] CDT Rod Perales M.D. LAB BLOOD ADD-ON [facility] [address] [place] [address], [facility] [address] [place] [address] * NT-Pro B-Type Natriuretic Peptide (BNP) (01/15/2024 [...] M.D. LAB BLOOD ADD-ON Performing Organization Address [facility] Co de Phone Number [facility] [address] [place] [address], [place] OWAT [facility] in [place] [address] [place] [address] * (ABNORMAL) Iron and Total Iron-Binding Capacity [...] P.A.-C. LAB BLOOD ADD-ON Performing Organization Address [facility]/ZIP Co de Phone Number [facility] [address] [place] [address], [place] AUST [facility] [facility] [address] [place] [address] * Sodium (01/15/2024 11:41 AM CDT) Sodium, P 139 135 - 145 mmol/L 01/15/2024 2:15 PM CDT OWAT Blood (Blood, Venous) 01/15/2024 11:41 AM CDT 01/15/2024 1:31 PM CDT Vitor Calle M.D. LAB BLOOD ADD-ON [facility] [address] [place] [address], [facility] in [place] [address] [place] [address] * Potassium (01/15/2024 11:41 AM CDT) Potassium, P 4.5 3.6 - 5.2 mmol/L 01/15/2024 2:15 PM CDT OWAT Blood (Blood, Venous) 01/15/2024 11:41 AM CDT 01/15/2024 1:31 PM CDT Vitor Calle M.D. LAB BLOOD ADD-ON Performing Organization Address [facility]/ZIP Co de Phone Number [facility] [address] [place] [address], [facility] in [place] [address] [place] [address] * Creatinine with Estimated GFR (01/15/2024 11:41 AM CDT) Creatinine 0.72 0.59 - 1.04 mg/dL 01/15/2024 2:15 PM CDT OWAT Estimated GFR (eGFR) 86 >=60 mL/min/BSA 01/15/2024 2:15 PM CDT OWAT Comment: Estimated GFR calculated using the 2020 CKD_EPI creatinine equation. Blood (Blood, Venous) 01/15/2024 11:41 AM CDT 01/15/2024 1:31 PM CDT Vitor Calle M.D. LAB BLOOD ADD-ON [facility] [address] [place] [address], [place] OWAT [facility] in [place] [address] [place] [address] * (TTE) 2D ECHO DOPPLER COLOR (01/01/2024 [...] ratio). Calculated 2-D linear left ventricular ejection sojbrmrt12%. No regional wall motion abnormalities. Grade 1a/3 [...] Advance Directives For more information, please contact: [phone] Documents on File Type Date Recorded Patient Operations Assistant Expl anation Advance Directives 02/06/2024 9:39 AM [...] Answer Comments Full Code: Discussed Care Teams Telegraph Service Clerk Relationship Specialty Start Date End Date Erinn Reina M.D. [address] [place] [address] [place] [address] PCP - General Family Medicine 09/08/21
--- OUTSIDE RECORDS SUMMARY | 2024-03-13 22:10 | XMS_ITS | Referral Summary ---
Author Organization [place] Address [address] [place] [address] Care Team Providers Care Electrode Cleaner Name Role Phone [facility] Allergies Active Allergy Reactions Criticality Noted [...] BILATERAL W/ MAURIZIO Routine 09/16/2019 10:48 AM HEAD BONE GRINDER Visit for screening mammogram CT CHEST W/O CONTRAST Routine 09/16/2019 10:02 AM HEAD BONE GRINDER Pulmonary nodules HEPATITIS C ANTIBODY Routine 09/25/2016 10:49 AM HEAD BONE GRINDER Routine general medical examination at a health [...] 06/05/2021 11:13 AM CDT Lavonne Hays APRN CIRCUIT BOARD ASSEMBLER LAB - BLOOD [facility] [address] Lab (no room number, 1st floor of clinic) [place] [address], [facility] [phone] * Spirometry - HIM Scan (11/21/2020) Jamin Borrego - 11/21/2020 [facility] PROGRESS NOTE Provider Outside PFT ORDERABLES * Basic metabolic panel (Ca, Cl, CO2, Creat, Gluc, K, Na, BUN) (04/13/2020 12:08 PM CDT) Sodium 134 133 - 144 mmol/L 04/14/2020 11:[address] [facility] Potassium 3.9 3.4 - 5.3 mmol/L 04/14/2020 11:[address] [facility] Chloride 101 94 - 109 mmol/L 04/14/2020 11:[address] [facility] Carbon Dioxide 25 20 - 32 mmol/L 04/14/2020 11:[address] [facility] Anion Gap 8 3 - 14 mmol/L 04/14/2020 11:[address] [facility] Glucose 81 70 - 99 mg/dL 04/14/2020 11:18 AM T [facility] Comment:Non Fasting Urea Nitrogen 13 7 - 30 mg/dL 04/14/2020 11:[address] [facility] Creatinine 0.77 0.52 - 1.04 mg/dL 04/14/2020 11:18 AM T [facility] GFR Estimate 75 >60 mL/min/{1 .73_m2} 04/14/2020 11:[address] [facility] Comment: Non GFR Calc Starting 09/23/2018, serum creatinine based estimated GFR (eGFR) will be calculated using the Chronic Kidney Disease Epidemiology Collaboration (CKD-EPI) equation. GFR Estimate If Black 87 >60 mL/min/{1 .73_m2} 04/14/2020 11:18 AM T [facility] Comment: GFR Calc Starting 09/23/2018, serum creatinine based estimated GFR (eGFR) will be calculated using the Chronic Kidney Disease Epidemiology Collaboration (CKD-EPI) equation. Calcium 8.5 8.5 - 10.1 mg/dL 04/14/2020 11:18 AM CDT [facility] Blood specimen (specimen) 04/13/2020 12:08 PM CDT 04/13/2020 12:10 PM CDT Alejandro Singer MD LAB - BLOOD ORDERABL ES [facility] [address] [place] [address] * DX Hip/Pelvis/Spine w Lat Fraction Guera (03/09/2020 11:51 AM CDT) Anatomical Region Laterality Modality Dexa Bone Mineral Den sity Narrative 03/09/2020 10:07 PM CDT BONE DENSITOMETRY [address] [address] 03/09/2020 ?? PATIENT: Marty Rivera CHART: [id number] : ??1945 AGE: ??75 year old SEX: ??female REFERRING PROVIDER: ??Tia Oakes MD ?? PROCEDURE: ??Bone density scanning was performed using DXA technology of the lumbar spine and hip. ??Scanning was performed on a [employer] scanner. ??Reporting is completed in the form [...] to another DXA performed on the same Copytele ?? machine on 04/20/2015. ?? LATERAL VERTEBRAL ASSESSMENT Procedure: ??Vertebral fracture assessment was performed in the lateral decubitus position using a [employer] ProdigAnavex ??densitometer. Indications for VFA: T-score of -1.0 [...] MA Screen Bilateral w/Maurizio (09/16/2019 10:48 AM HEAD BONE GRINDER) Anatomical Region Laterality Modality Breast Bilateral Mammography Impressions 09/16/2019 11:14 AM HEAD BONE GRINDER IMPRESSION: BI-RADS CATEGORY: 1 - ??Negative. RECOMMENDED FOLLOW-UP: Annual Mammography. ALEJANDRO LOYD MD Narrative 09/16/2019 11:14 AM HEAD BONE GRINDER SCREENING MAMMOGRAM, BILATERAL, DIGITAL w/CAD and TOMOSYNTHESIS, [...] CT Chest w/o Contrast (09/16/2019 10:02 AM HEAD BONE GRINDER) Anatomical Region Laterality Modality Chest, SUBRAD CT BODY, UMP CT CHEST, RAD CT Computed Tomography Impressions 09/16/2019 12:11 PM HEAD BONE GRINDER IMPRESSION: 1. Multiple indeterminate lung nodules. Due [...] BRENT SMALLWOOD MD Narrative 09/16/2019 12:[address] CHEST WITHOUT CONTRAST 09/16/2019 10:02 AM [...] * Hepatitis C antibody (09/25/2016 10:49 AM HEAD BONE GRINDER) Hepatitis C Antibody Nonreactive Assay performance characteristics have not been established for newborns, infants, and children NR [facility] Blood specimen (specimen) 09/25/2016 10:49 AM HEAD BONE GRINDER 09/25/2016 10:52 AM HEAD BONE GRINDER Tia Oakes MD LAB - BLOOD ORDERA BLES [facility] [address] [place] [address] from Last 3 Months or Most Recently Relevant to Health Maintenance Care Teams Electrode Cleaner Relationship Specialty Start Date End Date [facility] [address] [address] Assigned PCP 10/31/23
--- OUTSIDE RECORDS SUMMARY | 2024-03-13 22:10 | XMS_ITS | Encounter Summary ---
Author Organization [place] Address [address] [place] [address] Care Team Providers Care Fiscal Assistant Name Role Phone Tia Oakes MD Unavailable [phone] Lavonne Hays APRN, CNP Primary Care Provider Belen vailable Lavonne Hays APRN, CNP Unavailable Unavailab Tia Darling MD Unavailable [phone] Lavonne Hays APRN ALL PURPOSE CLERK Unavailable Unavailab Alejandro Florence MD Unavailable [phone] Lavonne Hays APRN ALL PURPOSE CLERK Unavailable Unavailab [facility] Unavailable Encounter Details Date Type Department [...] documented as of this encounter Care Teams Fiscal Assistant Relationship Specialty Start Date End Date Lavonne Hays APRN ALL PURPOSE CLERK [address] [place] [address] PCP - General Internal Medicine 05/19/21 12/18/23 Tia Oakes MD [address] [address] Assigned PCP 04/21/21 06/10/21 Lavonne Hays APRN ALL PURPOSE CLERK NO INFO AVAILABLE 04/29/2023 Assigned PCP 06/11/21 10/14/21 Tia Oakes MD [address] [place] [address] Assigned PCP 10/15/21 12/16/21 Lavonne Hays APRN ALL PURPOSE CLERK NO INFO AVAILABLE 04/29/2023 Assigned PCP 12/17/21 12/07/22 Alejandro Singer MD [address] [address] Assigned PCP 12/08/22 04/19/23 Lavonne Hays APRN ALL PURPOSE CLERK NO INFO AVAILABLE 04/29/2023 Assigned PCP 04/20/23 10/30/23 [facility] [address] [address] Assigned PCP 10/31/23 documented as of this encounter
--- OUTSIDE RECORDS SUMMARY | 2024-03-13 22:10 | XMS_ITS | Encounter Summary ---
Author Organization [place] Address [address] [place] [address] Care Team Providers Care Recovery Agent Name Role Phone Lavonne Hays APRN, CNP Primary Care Provider Belen Tia Suarez MD Unavailable [phone] Lavonne Hays APRN, CNP Unavailable Unavailab Alejandro Florence MD Unavailable [phone] Lavonne Hays APRN, CNP Unavailable Unavailab [facility] Unavailable Reason for Visit * Reason Comments Medication Refill Encounter Details Date Type Department Care Team (Late st Contact Info) Description 12/08/2021 Refill [facility] [address] [place] [phone] Lavonne Hays APRN CNP NO INFO AVAILABLE [...] 12/08/2021 1:55 PM CST Prescription approved per [facility] Refill Protocol. Bri Mason RN CTOR OF TEENAGE ACTIVITIES documented in this encounter Plan of Treatment Not on file documented as of this encounter Visit Diagnoses Diagnosis Hyperlipidemia LDL goal <100 Other and unspecified hyperlipidemia TIA (transient ischemic attack) Unspecified transient cerebral ischemia documented in this encounter Additional Health Concerns Assessment Noted Time PHQ-9 Depression Total Score: 10 021 10:07 AM CDT documented as of this encounter Care Teams Recovery Agent Relationship Specialty Start Date End Date Lavonne Hays APRN SEWING TEACHER PCP - General Internal Medicine 05/19/21 12/18/23 Tia Oakes MD [address] [place] [address] Assigned PCP 10/15/21 12/16/21 Lavonne Hays APRN SEWING TEACHER NO INFO AVAILABLE 04/29/2023 Assigned PCP 12/17/21 12/07/22 Alejandro Singer MD [address] [facility] [address] [place] [address] Assigned PCP 12/08/22 04/19/23 Lavonne Hays APRN SEWING TEACHER NO INFO AVAILABLE 04/29/2023 Assigned PCP 04/20/23 10/30/23 [facility] [address] [place], [place] [address] Assigned PCP 10/31/23 documented as of this encounter
--- OUTSIDE RECORDS SUMMARY | 2024-03-13 22:10 | XMS_ITS | Clinical Summary ---
Author Organization [place] Address [address] [place] [address] Care Team Providers Care Gang Bore Operator Name Role Phone [facility] Allergies Active Allergy Reactions Criticality Noted [...] BILATERAL W/ MAURIZIO Routine 09/16/2019 10:48 AM LUMBER PULLER Visit for screening mammogram CT CHEST W/O CONTRAST Routine 09/16/2019 10:02 AM LUMBER PULLER Pulmonary nodules HEPATITIS C ANTIBODY Routine 09/25/2016 10:49 AM LUMBER PULLER Routine general medical examination at a health [...] 06/05/2021 11:13 AM CDT Lavonne Saúl MERRILL COPY WORKER LAB - BLOOD ORDERA BLES OX LABORATORY [facility] [address] Lab (no room number, 1st floor of clinic) [place] [address], [facility] [phone] * Spirometry - HIM Scan (11/21/2020) Narrative Jamin Leon - 11/21/2020 [facility] PROGRESS NOTE Provider Outside PFT ORDERABLES * Basic metabolic panel (Ca, Cl, CO2, Creat, Gluc, K, Na, BUN) (04/13/2020 12:08 PM CDT) Sodium 134 133 - 144 mmol/L 04/14/2020 11:00 AM T [facility] Potassium 3.9 3.4 - 5.3 mmol/L 04/14/2020 11:00 AM T [facility] Chloride 101 94 - 109 mmol/L 04/14/2020 11:00 AM T [facility] Carbon Dioxide 25 20 - 32 mmol/L 04/14/2020 11:18 AM T [facility] Anion Gap 8 3 - 14 mmol/L 04/14/2020 11:18 AM T [facility] Glucose 81 70 - 99 mg/dL 04/14/2020 11:18 AM T [facility] Comment:Non Fasting Urea Nitrogen 13 7 - 30 mg/dL 04/14/2020 11:18 AM T [facility] Creatinine 0.77 0.52 - 1.04 mg/dL 04/14/2020 11:18 AM T [facility] GFR Estimate 75 >60 mL/min/{1 .73_m2} 04/14/2020 11:18 AM CDT [facility] Comment: Non GFR Calc Starting 09/23/2018, serum creatinine based estimated GFR (eGFR) will be calculated using the Chronic Kidney Disease Epidemiology Collaboration (CKD-EPI) equation. GFR Estimate If Black 87 >60 mL/min/{1 .73_m2} 04/14/2020 11:18 AM CDT [facility] Comment: GFR Calc Starting 09/23/2018, serum creatinine based estimated GFR (eGFR) will be calculated using the Chronic Kidney Disease Epidemiology Collaboration (CKD-EPI) equation. Calcium 8.5 8.5 - 10.1 mg/dL 04/14/2020 11:18 AM CDT [facility] Blood specimen (specimen) 04/13/2020 12:08 PM CDT 04/13/2020 12:10 PM CDT Alejandro Singer MD LAB - BLOOD ORDERABL ES [facility] [address] [place] [address] * DX Hip/Pelvis/Spine w Lat Fraction Guera (03/09/2020 11:51 AM CDT) Anatomical Region Laterality Modality Dexa Bone Mineral Den sity Narrative 03/09/2020 10:07 PM CDT BONE DENSITOMETRY [address] [address] 03/09/2020 ?? PATIENT: Marty Rivera CHART: [id number] : ??1945 AGE: ??75 year old SEX: ??female REFERRING PROVIDER: ??Tia Oakes MD ?? PROCEDURE: ??Bone density scanning was performed using DXA technology of the lumbar spine and hip. ??Scanning was performed on a [employer] scanner. ??Reporting is completed in the form [...] to another DXA performed on the same [employer] ?? machine on 04/20/2015. ?? LATERAL VERTEBRAL ASSESSMENT Procedure: ??Vertebral fracture assessment was performed in the lateral decubitus position using a [employer] ??densitometer. Indications for VFA: T-score of -1.0 [...] MA Screen Bilateral w/Maurizio (09/16/2019 10:48 AM LUMBER PULLER) Anatomical Region Laterality Modality Breast Bilateral Mammography Impressions 09/16/2019 11:14 AM LUMBER PULLER IMPRESSION: BI-RADS CATEGORY: 1 - ??Negative. RECOMMENDED FOLLOW-UP: Annual Mammography. ALEJANDRO LOYD MD Narrative 09/16/2019 11:14 AM LUMBER PULLER SCREENING MAMMOGRAM, BILATERAL, DIGITAL w/CAD and TOMOSYNTHESIS, [...] CT Chest w/o Contrast (09/16/2019 10:02 AM LUMBER PULLER) Anatomical Region Laterality Modality Chest, SUBRAD CT BODY, UMP CT CHEST, RAD CT Computed Tomography Impressions 09/16/2019 12:11 PM LUMBER PULLER IMPRESSION: 1. Multiple indeterminate lung nodules. Due [...] BRENT SMALLWOOD MD Narrative 09/16/2019 12:[address] CHEST WITHOUT CONTRAST 09/16/2019 10:02 AM [...] * Hepatitis C antibody (09/25/2016 10:49 AM LUMBER PULLER) Hepatitis C Antibody Nonreactive Assay performance characteristics have not been established for newborns, infants, and children NR [facility] Blood specimen (specimen) 09/25/2016 10:49 AM LUMBER PULLER 09/25/2016 10:52 AM LUMBER PULLER Tia Oakes MD LAB - BLOOD ORDERA BLES [facility] [address] [place] [address] from Last 3 Months or Most Recently Relevant to Health Maintenance Care Teams Gang Bore Operator Relationship Specialty Start Date End Date [facility] - [address] [address] Assigned PCP 10/31/23
--- OUTSIDE RECORDS SUMMARY | 2024-03-13 22:11 | XMS_ITS | Encounter Summary ---
Author Organization [facility] Address [address] [place] [address] Care Team Providers Care Dialysis Technician Name Role Phone Erinn Reina M.D. Primary Care Provider [phone] Reason for Visit * Physical Therapy (Routine) - Canceled Specialty Diagnoses / Procedures Referred By Osorio guevara Referred To Contact Diagnoses Fibromyalgia Pain Low Back Unspecified Procedures PT Ongoing treatment Tony Schwartz P.AAnn-Marie-CAnn-Marie [address] [place] [address] [facility] Region Referral ID Status Reason Start Date Expiration Date V isits Requested Visits Authorized [id number] Canceled 06/07/2023 06/06/2024 99 99 Encounter Details Date Type Department Care Team (Latest Contact Info) Description 01/29/2024 10:45 AM CDT Clinical Support Department of Physical Medicine and Rehabilitation in [place], [place] [address] [place] [phone] Tony Schwartz, PAnn-MarieA.-CAnn-Marie [address] [place] [phone] Elana Winters, P.TAnn-Marie [address] [place] [phone] Fibromyalgia (Primary Dx); Pain Low Back Unspecified [...] How often do you attend chur or zoroastrian services? 1 to 4 times per year [...] Date Recorded PHQ-2 Score 1 08/15/2022 [facility] [place] of Occupat ional Health - Occupational Stress [...] Sex Assigned at Female 10/24/2023 10:51 PM STRADDLE BUG DRIVER Gender Identity Female 02/10/2019 11:51 AM CDT [...] reports she a doctor's appointment with a family centered specialist for her back yesterday. 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 Patient verbalizes she remembers the exercises. SiCortex: [email or web address] Access Code: [email or web address] Patient reports fair HEP [...] Department of Physical Medicine and Rehabilitation in [place], [place] [address] [place] [address] Rod Collins M.D. [address] [place] [phone] Elana Winters P, P.T. [address] [place] [phone] 03/24/2024 12:45 PM CDT Clinical Support Department of Physical Medicine and Rehabilitation in [place], [place] [address] [place] [address] Rod Collins M.D. [address] [place] [phone] Elana Winters, P.T. [address] [place] [phone] 03/31/2024 12:45 PM CDT Clinical Support Department of Physical Medicine and Rehabilitation in [place], [place] [address] [place] [address] Rod Collins M.D. [address] [place] [phone] Elana Winters P, P.T. [address] [place] [phone] 04/07/2024 12:45 PM CDT Clinical Support Department of Physical Medicine and Rehabilitation in [place], [place] [address] [place] [address] Rod Collins M.D. [address] [place] [phone] Elana Winters, P.T. [address] [place] [phone] 04/14/2024 12:45 PM CDT Clinical Support Department of Physical Medicine and Rehabilitation in [place], [place] [address] [place] [address] Rod Collins M.D. [address] [place] [phone] Elana Winters P, P.T. [address] [place] [phone] 04/21/2024 12:45 PM CDT Clinical Support Department of Physical Medicine and Rehabilitation in [place], [place] [address] [place] [address] Rod Collins M.D. [address] [place] [phone] Elana Wintres, P.T. [address] [place] [phone] 04/28/2024 12:45 PM CDT Clinical Support Department of Physical Medicine and Rehabilitation in [place], [place] [address] [place] [phone] Rod Collins M.D. [address] [place] [phone] Elana Winters P, P.T. [address] [place] [phone] documented as of this encounter Visit Diagnoses Diagnosis Fibromyalgia- Primary Pain Low Back Unspecified documented in this encounter Additional Health Concerns Assessment Noted Time PHQ-9 Depression Total Score: 6 08/15/20 22 2:06 AM STRADDLE BUG DRIVER documented as of this encounter Care Teams Dialysis Technician Relationship Specialty Start Date End Date Erinn Reina M.D. [address] [place], [place] [address] [address] PCP - General Family Medicine 09/08/21 documented as of this encounter
--- OUTSIDE RECORDS SUMMARY | 2024-03-13 22:11 | XMS_ITS | Encounter Summary ---
Author Organization [facility] Address [address] [place] [address] Care Team Providers Care Flatwork Washer Name Role Phone Erinn Reina M.D. Primary Care Provider Reason for Visit * Reason Onset Date Comments [employer] form 02/19/2024 Encounter Details Date Type Department Care Team (Latest Contact Info) Description 02/19/2024 Clinical Communication Division of Pulmonary Medicine in [place], [place] [address] [place] [phone] Seun Bey M.D. [address] [place] [phone] [employer] form Social History Tobacco Use [...] often do you attend [facility] or caodaism services? 1 to 4 times per year 03/05/2022 Do you belong to any clubs o r organizations such as protestant groups, unions, fraternal or athletic groups, or [...] Answer Date Recorded PHQ-2 Score 1 08/15/2022 [facility] of Occupat ional Health - Occupational Stress [...] your living situation today? [facility] live 04/10/2023 Education Answer Date Recorded What is the highest level of school you have completed or the highest degree you have received? 12th grade 04/14/2019 Sex and Gender Information Value Date Recorded Sex Assigned at Female 10/24/2023 10:51 PM SALES ENGINEER ACCOUNT MANAGER Gender Identity Female 02/10/2019 11:51 AM [...] she will be faxing a form from [employer] stating that she is on oxygen. Action Requested: Fill out form once we receive it. Additional Notes: Will let you know once I get it. documented in this encounter Plan of Treatment Upcoming Encounters Date Type Department Care Team (Late st Contact Info) Description 03/17/2024 9:15 AM CDT Clinical Support Department of Physical Medicine and Rehabilitation in [place] [address] [place] [address] Rod Collins M.D. [address] [place] [phone] Elana Winters P, P.T. [facility] [place] [address] 03/24/2024 12:45 PM CDT Clinical Support Department of Physical Medicine and Rehabilitation in [place] [address] [place] [address] Rod Collins M.D. [address] [place] [phone] Elana Winters P, P.T. [facility] [place] [address] 03/31/2024 12:45 PM CDT Clinical Support Department of Physical Medicine and Rehabilitation in [place], [place] [address] [place] [address] Rod Collins M.D. [address] [place] [phone] Elana Winters P, P.T. [address] [place] [phone] 04/07/2024 12:45 PM CDT Clinical Support Department of Physical Medicine and Rehabilitation in [place], [place] [address] [place] [address] Rod Collins M.D. [address] [place] [phone] Elana Winters, P.T. [facility] [place] [address] 04/14/2024 12:45 PM CDT Clinical Support Department of Physical Medicine and Rehabilitation in [place], [place] [address] [place] [address] Rod Collins M.D. [address] [place] [phone] Elana Winters, P.T. [address] [place] [phone] 04/21/2024 12:45 PM CDT Clinical Support Department of Physical Medicine and Rehabilitation in [place], [place] [address] [place] [address] Rod Collins M.D. [address] [place] [phone] Elana Winters P, P.T. [address] [place] [phone] 04/28/2024 12:45 PM CDT Clinical Support Department of Physical Medicine and Rehabilitation in [place], [place] [address] [place] [address] Rod Collins M.D. [address] [place] [phone] Elana Winters, P.T. [address] [place] [phone] documented as of this encounter Visit Diagnoses Not on filedocumented in this encounter Additional Health Concerns Assessment Noted Time PHQ-9 Depression Total Score: 6 08/15/20 22 2:06 AM SALES ENGINEER ACCOUNT MANAGER documented as of this encounter Care Teams Flatwork Washer Relationship Specialty Start Date End Date Erinn Reina M.D. [address] [place] [phone] PCP - General Family Medicine 09/08/21 documented as of this encounter
--- OUTSIDE RECORDS SUMMARY | 2024-03-13 22:11 | XMS_ITS | Encounter Summary ---
Author Organization [facility] Address [address] [place] [address] Care Team Providers Care Traffic Court Referee Name Role Phone Erinn Reina M.D. Primary Care Provider Reason for Referral * Physical Therapy (Routine) - Authorized Specialty Diagnoses / Procedures Referred By Osorio guevara Referred To Contact Diagnoses Osteoporosis Pain Low Back Unspecified Pain Back Procedures PT Ongoing treatment Rod Collins M.D. [address] [place] [address] [facility] Region Referral ID Status Reason Start Date Expiration Date V isits Requested Visits Authorized [id number] Authorized 02/18/2024 02/17/2025 99 99 Reason for Visit * Physical Therapy (Routine) - Authorized Specialty Diagnoses / Procedures Referred By Osorio guevara Referred To Contact Diagnoses Osteoporosis Pain Low Back Unspecified Pain Back Procedures PT Evaluate and treat Rod Collins M.D. [address] [place] [address] [facility] Region Referral ID Status Reason Start Date Expiration Date V isits Requested Visits Authorized [id number] Authorized 02/05/2024 02/04/2025 99 99 Encounter Details Date Type Department Care Team (Latest Contact Info) Description 02/18/2024 10:45 AM CDT Comprehensive Visit Department of Physical Medicine and Rehabilitation in [place], [place] [address] [place] [phone] Rod Collins M.D. [address] [place] [address] Elana Winters, P.T. [address] [place] [phone] Pain Back (Primary Dx); Osteoporosis; Pain Low [...] any clubs o r organizations such as episcopal groups, unions, fraternal or athletic groups, or [...] Answer Date Recorded PHQ-2 Score 1 08/15/2022 [facility] Questionnaire Answer Date [...] Sex Assigned at Female 10/24/2023 10:51 PM TRAUMA DOCTOR Gender Identity Female 02/10/2019 11:51 AM CDT [...] AND B / Product Type: Medicare / Security Innovation Visit Count: 1 PERTINENT MEDICAL / SURGICAL [...] With Loss Of Consciousness Of Unspecified Duration Initial([facility]) Follow Up Examination Status Post Surgery Nodule [...] Procedure: STENT GRAFT ENDOVASCULAR THORACOABDOMINAL AORTA, JENNIFER [id number], Endovascular repair complex abdominal aortic aneurysm using [...] Function/Occupational Profile: Prior Mobility/Functional Transfers Level of Union: Modified independent Gait Devices/Wheelchair Used: Manual wheelchair Gait Devices/Wheelchair Used Comments: In community for long events Prior Function/Occupational Profile Dominant Hand: Right Lives With: Alone Receives Help From: drying room attendant, Family ADL Assistance: Modified independent ADL Assistance Comments: Patient requires some assistance with dressing depending on the day and can make simple meals for herself. IADL/Homemaking Assistance: Required assistance IADL/Homemaking Assistance Comments: Patient has FOOD AND BEVERAGE MANAGER perform tasks along with family Driving: Does not drive Driving Comments: FOOD AND BEVERAGE MANAGER drives patient to appointments. Leisure Interests: Patient [...] pleasant female who presents today with her FOOD AND BEVERAGE MANAGER present. Posture: In stance patient demonstrates a [...] for optimal recovery of mobility. In addition [id number] glides attempted throughoutthe thoracic region and passive extension mobilization performed for recovery of posture grade 2 progressing up to a grade 3 oscillating as tolerated. Therapeutic Exercise: Passive range of motion of the right shoulder region and left shoulder regionperformed with flexion, abduction, external rotation as tolerated with resistance to external rotation bilaterally x5 Home Exercise Program/Education: [email or web address] Access Code: [email or web address] Assessment Clinical Impression: Patient [...] Department of Physical Medicine and Rehabilitation in [place], [place] [address] [place] [address] Rod Collins M.D. [address] [place] [address] Elana Winters, P.T. [address] [place] [phone] 03/24/2024 12:45 PM CDT Clinical Support Department of Physical Medicine and Rehabilitation in [place], [place] [address] [place] [address] Rod Collins M.D. [address] [place] [phone] Elana Winters P, P.T. [address] [place] [phone] 03/31/2024 12:45 PM CDT Clinical Support Department of Physical Medicine and Rehabilitation in [place] [address] [place] [address] Rod Collins M.D. [address] [place] [phone] Elana Winters P, P.T. [address] [place] [phone] 04/07/2024 12:45 PM CDT Clinical Support Department of Physical Medicine and Rehabilitation in [place], [place] [address] [place] [address] Rod Collins M.D. [address] [place] [phone] Elana Winters P, P.T. [address] [place] [phone] 04/14/2024 12:45 PM CDT Clinical Support Department of Physical Medicine and Rehabilitation in [place], [place] [address] [place] [address] Rod Collins M.D. [address] [place] [phone] Elana Winters, P.T. [address] [place] [address] 04/21/2024 12:45 PM CDT Clinical Support Department of Physical Medicine and Rehabilitation in [place], [place] [address] [place] [address] Rod Collins M.D. [address] [place] [phone] Elana Winters, P.T. [address] [place] [address] 04/28/2024 12:45 PM CDT Clinical Support Department of Physical Medicine and Rehabilitation in [place], [place] [address] [place] [address] Rod Collins M.D. [address] [place] [phone] Elana Winters, P.T. [address] [place] [phone] documented as of this encounter Visit Diagnoses Diagnosis Pain Back- Primary Osteoporosis Pain Low Back Unspecified documented in this encounter Additional Health Concerns Assessment Noted Time PHQ-9 Depression Total Score: 6 08/15/20 22 2:06 AM TRAUMA DOCTOR documented as of this encounter Care Teams Traffic Court Referee Relationship Specialty Start Date End Date Erinn Reina M.D. [address] [place] [address] [place] [address] PCP - General Family Medicine 09/08/21 documented as of this encounter
--- OUTSIDE RECORDS SUMMARY | 2024-03-13 22:11 | XMS_ITS | Referral Summary ---
Author Organization [facility] Address [address] [place] [address] Care Team Providers Care Souvenir Assembler Name Role Phone Erinn Reina M.D. Primary Care Provider [phone] Source Comments Patient records contain information from all sites at [facility]. For routine questions regarding patient records, call [phone] during business hours, M-F 8:00 AM - 5:00 PM Central Time. Record requests for emergency care only can be directed to [phone] at any time.[facility] Encounters Date Type Department Care Team Description 03/10/2024 9:15 AM CDT Clinical Support Department of Physical Medicine and Rehabilitation in [place], [place] [address] [place] [address] Rod Collins M.D. Ambroz, Colleen P, P.T. Pain Low Back Unspecified (Primary Dx); Osteoporosis; Pain Back 03/04/2024 1:30 PM CDT Office Visit Division of Pulmonary Medicine in [place], [place] [address] [place] [phone] Arjun Umana M.D. Chronic Obstructive Pulmonary Disease (HCC) (Primary Dx); Hypertension Pulmonary (HCC); Chronic Right Heart Failure (HCC); Nicotine Dependence Cigarettes; Abdominal Pain 02/19/2024 Clinical Communication Division of Pulmonary Medicine in [place], [place] [address] [place] [phone] Seun Bey M.D. Xcell energy form 02/18/2024 10:45 AM CDT Comprehensive Visit Department of Physical Medicine and Rehabilitation in [place], [place] [address] [place] [address] Rod Collins M.D. Ambroz, Colleen P, P.T. Pain Back (Primary Dx); Osteoporosis; Pain Low Back Unspecified 02/05/2024 Orders Only Division of Endocrinology in [place], [place] [address] [place] [address] Rod Collins M.D. Osteoporosis (Primary Dx); Pain Low Back Unspecified; Pain Back 02/04/2024 Clinical Communication Division of Endocrinology in [place], [place] [address] [place] [address] Rod Collins M.D. 02/04/2024 10:00 AM CDT Clinical Support Department of Physical Medicine and Rehabilitation in [place], [place] [address] [place] [address] Tony Schwartz P.A.-C. Ambroz, Colleen P, P.T. Fibromyalgia (Primary Dx); Pain Low Back Unspecified 02/01/2024 Orders Only Division of Endocrinology in [place], [place] [address] [place] [address] Rod Collins M.D. Anemia Iron Deficiency (Primary Dx); Osteoporosis 01/29/2024 Clinical Communication Department of Family Medicine, [facility], in [place], [place] [address] [place] [address] Erinn Reina M.D. 01/29/2024 10:45 AM CDT Clinical Support Department of Physical Medicine and Rehabilitation in [place], [place] [address] [place] [address] Tony Schwartz P.A.-CElana Garcia, P.T. Fibromyalgia (Primary Dx); Pain Low Back Unspecified 01/28/2024 9:00 AM CDT Comprehensive Visit Division of Endocrinology in [place], [place] [address] [place] [address] Jesus Feng APRN, C.N.P. Toro Tobon, David, M.D. Osteoporosis (Primary Dx); Pain Back; Fracture Vertebra Compression Thoracic Closed Initial (HCC) 01/17/2024 12:45 PM CDT Clinical Support Department of Physical Medicine and Rehabilitation in [place], [place] [address] [place] [address] Tony Schwartz P.A.-C. Ambroz, Colleen P, P.T. Fibromyalgia (Primary Dx); Pain Low Back Unspecified 01/15/2024 11:30 AM CDT - 01/15/2024 11:59 PM CDT Hospital Encounter Department of Laboratory Medicine in [address] [address] Vitor Calle M.D. Dyspnea Multifactorial; Anemia Iron Deficiency Discharge Disposition: Home or Self Care 01/09/2024 Orders Only Department of Vascular Medicine in [place], [place] [address] [place] [address] Tony Schwartz P.A.-C. Anemia Iron Deficiency (Primary Dx) 01/08/2024 11:30 AM CDT Office Visit Department of Cardiovascular Diseases in [place], [place] [address] [place] [address] Vitor Calle M.D. Dyspnea Multifactorial (Primary Dx) 01/07/2024 Orders Only [facility] Erinn Johnson M.D. 01/06/2024 12:30 PM CDT Clinical Support Department of Physical Medicine and Rehabilitation in [place], [place] [address] [place] [phone] Tony Schwartz P.A.-C. Ambroz, Colleen P, P.T. Fibromyalgia; Pain Low Back Unspecified 01/02/2024 9:15 AM CDT Clinical Support Department of Physical Medicine and Rehabilitation in [place], [place] [address] [place] [phone] Tony Schwartz P.A.-C. Ambroz, Colleen P, P.T. Fibromyalgia (Primary Dx); Pain Low Back Unspecified 01/01/2024 1:14 PM CDT - 01/01/2024 11:59 PM CDT Hospital Encounter Department of Cardiovascular Diseases in [place], [place] [address] [place] [address] Vitor Calle M.D. Dilated Aortic Root (HCC); Dyspnea Multifactorial Discharge Disposition: Home or Self Care 12/26/2023 10:45 AM CDT Clinical Support Department of Physical Medicine and Rehabilitation in [place], [place] [address] [place] [address] Tony Schwartz P.A.-C. Ambroz, Colleen P, P.T. Fibromyalgia (Primary Dx); Pain Low Back Unspecified from Last 3 Months Allergies Active Allergy [...] 30- 60py cumulative smoking history. 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 In Nov 2021, she [...] How often do you attend chur or buddhism services? 1 to 4 times per year 03/05/2022 Do you belong to any clubs o r organizations such as methodist groups, unions, fraternal or athletic groups, or [...] Answer Date Recorded PHQ-2 Score 1 08/15/2022 [facility] [place] of Occupat ional Health - Occupational Stress [...] Sex Assigned at Female 10/24/2023 10:51 PM MEDICAL SERVICES ASSISTANT Gender Identity Female 02/10/2019 11:51 AM CDT Sexual Orientation Straight 02/10/2019 11 :51 AM CDT Last Filed Vital Signs Vital Sign Reading Time Taken Comments Blood Pressure 105/74 03/04/2024 1:14 PM CDT Pulse 111 03/04/2024 1:14 PM CDT Temperature 36.6 ??C (97.8 ??F) 03/04/2024 1 :14 PM CDT Respiratory Rate 18 12/03/2022 3:20 PM MEDICAL SERVICES ASSISTANT Oxygen Saturation 73% 03/04/2024 1:1 4 PM [...] Department of Physical Medicine and Rehabilitation in [place], [place] [address] [place] [address] Rod Collins M.D. 200 [place] [address] Elana Winters P, P.T. [address] [place] [address] 03/24/2024 12:45 PM CDT Clinical Support Department of Physical Medicine and Rehabilitation in [place], [place] [address] [place] [address] Rod Collins M.D. 200 [place] [address] Elana Winters P, P.T. [address] [place] [address] 03/31/2024 12:45 PM CDT Clinical Support Department of Physical Medicine and Rehabilitation in [place], [place] [address] [place] [address] Rod Collins M.D. [address] [place] [address] Elana Winters P, P.T. [address] [place] [phone] 04/07/2024 12:45 PM CDT Clinical Support Department of Physical Medicine and Rehabilitation in [place], [place] [address] [place] [address] Rod Collins M.D. [address] [place] [phone] Elana Winters P, P.T. [address] [place] [phone] 04/14/2024 12:45 PM CDT Clinical Support Department of Physical Medicine and Rehabilitation in [place] [address] [place] [address] Rod Collins M.D. [address] [place] [phone] Elana Winters P, P.T. [address] [place] [phone] 04/21/2024 12:45 PM CDT Clinical Support Department of Physical Medicine and Rehabilitation in [place] [address] [place] [address] Rod Collins M.D. [address] [place] [phone] Ambroz, Elana P, P.T. [address] [place] [address] 04/28/2024 12:45 PM CDT Clinical Support Department of Physical Medicine and Rehabilitation in [place], [place] [address] [facility] [place] [address] Rod Collins M.D. [address] [place] [address] Elana Winters P.T. [address] [place] [address] Medical Devices Implanted Type Area Product Builder Device Identifier Shelf Expiration Date Model / Serial / Lot Stnt Visi Pro Otw [id number] - [id number] Implanted:Qt y: 1 on 05/04/2019 by Tyson Liao M.D. at [facility] Biliary Stent N/A: Arterial Medtronic 09/24/2019 [id number] / / [id number] Description:SMA #2 Stnt Visi Pro Otw [id number] - [id number] Implanted:Qt y: 1 on 05/04/2019 by Tyson Liao M.D. at [facility] Biliary Stent Right: Arterial Medtronic 03/23/2021 [id number] -27-135 / / [id number] Description:Celiac Artery #2 Stnt Icast Atrm Cov [id number] - [id number] - [id number] Implanted:Qt y: 1 on 05/04/2019 by Tyson Liao M.D. at [facility] Respiratory Stent Right: Arterial Atrium 02/18/2022 [id number] / [id number] / Description:Right Renal Emma ry Stnt Icast Atrm Cov [id number] - [id number] - [id number] Implanted:Qt y: 1 on 05/04/2019 by Tyson Liao M.D. at [facility] Respiratory Stent Right: Arterial Atrium 02/06/2022 [id number] / [id number] / Description:Left renal arter y Stnt Icast Atrm Cov [id number] - [id number] - [id number] Implanted:Qt y: 1 on 05/04/2019 by Tyson Liao M.D. at [facility] Respiratory Stent Right: Arterial Atrium 03/27/2022 [id number] / [id number] / Description:SMA Stnt Icast Atrm Cov [id number] - [id number] - [id number] Implanted:Qt y: 1 on 05/04/2019 by Tyson Liao M.D. at [facility] Respiratory Stent Right: Arterial Atrium 01/29/2022 [id number] / [id number] / Description:Left renal arter y Stnt Icast Atrm Cov [id number] - [id number] - [id number] Implanted:Qt y: 1 on 05/04/2019 by Tyson Liao M.D. at [facility] Respiratory Stent Right: Arterial Atrium 03/27/2022 [id number] / [id number] / Description:Celiac Artery Slp-Jedpde-O enestrated-P natali Stent Graft Implanted:Qt y: 1 on 05/04/2019 by Tyson Liao M.D. at [facility] Stent Other N/A: Aorta [employer] [id number] 03/23/2022 [id number] / / [id number] Aaa-Bifurcat ed-Graft Implanted:Qt y: 1 on 05/04/2019 by Tyson Liao M.D. at [facility] Stent Other N/A: Aorta [employer] [id number] 03/17/2022 [id number] / / [id number] Grft Znt Ilc Ext [id number] - [id number] Implanted:Qt y: 1 on 05/04/2019 by Tyson Liao M.D. at [facility] Vascular Graft Left: Arterial [employer] 12/02/2021 [id number] / / [id number] Description:Left Iliac Stnt Margaret Otw [id number] - [id number] Implanted:Qt y: 1 on 05/04/2019 by Tyson Liao M.D. at [facility] Vascular Stent Right: Arterial [employer] 11/03/2020 [id number] / / [id number] Description:Right Renal Emma ry Procedures Procedure Name Priority Date/Time Associated Diagnosis Comments ARTERIAL BLOOD GAS - PULMONARY CLINIC Routine 03/04/2024 2:42 PM CDT Chronic Obstructive Pulmonary Disease (HCC) TISSUE TRANSGLUTAMINASE (TTG) AB, IGA, S Routine 01/28/2024 10:16 AM CDT MA T4 FREE Routine 01/28/2024 10:16 AM CDT [...] BILATERAL WITH TOMOSYNTHESIS Routine 09/16/2019 10:[address] CHEST WITHOUT IV CONTRAST Routine 08/2019 10:02 AM MEDICAL SERVICES ASSISTANT from Last 3 Months or Most Recently [...] CDT Arjun Umana M.D. LAB BLOOD ADD-ON [facility] [place] [address] [place] [address], [facility] [address] [place] [address] * Quantitative M-protein Study (01/28/2024 10:16 AM [...] and its performance characteristics determined by [facility] in a manner consistent with CLIA requirements. This test has not been cleared or approved by the U.S. Food and Drug Administration. Blood (Blood, Venous) 01/28/2024 10:16 AM CDT 01/28/2024 2:02 PM CDT Narrative [facility] - 01/29/2024 12:53 PM CDT Specimen Information: Specimen ID: [id number] Specimen Type: Blood Specimen Collection Start Date: 01/28/2024 10:16 AM Specimen Received Date: 01/28/2024 ??2:02 PM Specimen ID: [id number] Specimen Type: Blood Specimen Collection Start Date: 01/28/2024 10:16 AM Specimen Received Date: 01/28/2024 ??1:55 PM Rod Perales M.D. LAB BLOOD ADD-ON [facility] [address] [place] [address] [facility] [address] [place] [address] [facility] [place] [address] * T4 (Thyroxine), Free, Serum (01/28/2024 10:16 AM CDT) Pathologist [facility] T4 (Thyroxine), Free, S 1.0 0.9 - 1.7 ng/dL 01/28/2024 11:30 AM CDT DTL Blood 01/28/2024 10:1 6 AM CDT 01/28/2024 10:42 AM CDT Rod Perales M.D. LAB BLOOD ADD-ON [facility] [place] [address] [place] [address], [facility] DTL [facility] [address] [place] [address] * (ABNORMAL) Thyroid Function Starke (01/28/2024 10:16 AM CDT) TSH, Sensitive 4.4(H) 0.3 - 4.2 mIU/L 01/28/2024 11:09 AM CDT DT Blood (Blood, Venous) 01/28/2024 10:16 AM CDT 01/28/2024 10:42 AM CDT Rod Perales M.D. LAB BLOOD ADD-ON [facility] [place] [address] [place] [address], [address] [address] * Celiac Disease Serology Starke (01/28/2024 10:16 AM CDT) Pathologist [facility] Immunoglobulin A (IgA), S 304 61 - 356 mg/dL 01/28/2024 2:56 PM CDT [facility] Celiac Disease Interpretation See Comment: Negative serology. Celiac disease unlikely. However, approximately 10% of patients with celiac disease are seronegative. Also, patients who are already adhering to a gluten-free diet may be seronegative. If celiac disease is highly clinically suspected, consider HLA-DQ typing. 01/28/2024 9:15 PM CDT [facility] Blood (Blood, Venous) 01/28/2024 10:16 AM CDT 01/28/2024 2:02 PM CDT Narrative [facility] - 01/28/2024 9:15 PM CDT Specimen Information: Specimen ID: [id number] Specimen Type: Blood Specimen Collection Start Date: 01/28/2024 10:16 AM Specimen Received Date: 01/28/2024 ??2:02 PM Specimen ID: [id number] Specimen Type: Blood Specimen Collection Start Date: 01/28/2024 10:16 AM Specimen Received Date: 01/28/2024 ??2:00 PM Rod Perales M.D. LAB BLOOD ADD-ON [facility] [address] [place] [address] [facility] [address] [place] [address] [facility] [address] [place] [address] [place] [address] * Thyroperoxidase (TPO) Antibodies (01/28/2024 10:16 AM CDT) Thyroperoxidase Ab, S 18.5 <34.0 IU/mL 01/28/2024 11:30 AM CDT [facility] Blood 01/28/2024 10:1 6 AM CDT 01/28/2024 10:42 AM CDT Rod Perales M.D. LAB BLOOD ADD-ON Performing Organization Address City/[facility]/ZIP Co de Phone Number [facility] [place] [address] [place] [address], [facility] [address] [place] [address] * tTG (Tissue Transglutaminase), Antibody, IgA (01/28/2024 10:16 AM CDT) Tissue Transglutaminase Ab, IgA, S <1.2 <4.0 (Negative ) U/mL 01/28/2024 6:42 PM CDT [facility] Blood 01/28/2024 10:1 6 AM CDT 01/28/2024 3:19 PM CDT Rod Perales M.D. LAB BLOOD ADD-ON [facility] [address] [place] [address] [facility] [address] [place] [address] * Connective Tissue Diseases Starke (01/28/2024 10:16 AM CDT) Antinuclear Ab, S 0.1 <=1.0 (Negative ) U 01/28/2024 7:56 PM CDT [facility] Comment: ----ADDITIONAL INFORMATION---- Method: Enzyme-linked immunoassay using HEp-2 nuclear extract supplemented with purified antigens. Cyclic Citrullinated Peptide Ab, S <15.6 <20.0 (Negative ) U 01/28/2024 6:40 PM CDT [facility] Interpretation SEE COMMENT 7:56 PM T [facility] Comment: Tests for antibodies to dsDNA and DERIC antigens are not performed automatically unless the TERRI result is > or = 3.0 U. ??Studies performed at [facility] indicate that positive TERRI results <3.0 U are rarely accompanied by positive second order tests. Blood (Blood, Venous) 01/28/2024 10:16 AM CDT 01/28/2024 1:59 PM CDT Rod Perales M.D. LAB BLOOD ADD-ON [facility] [address] [place] [address] [facility] [address] [place] [place] [address] * (ABNORMAL) 25-Hydroxyvitamin D2 and D3 (01/28/2024 10:16 AM CDT) [facility] 25-Hydroxy D2 <4.0 ng/mL 01/30/2024 9:01 AM CDT [facility] 25-Hydroxy D3 18 ng/mL 01/30/2024 9:01 AM T [facility] 25-Hydroxy D Total 18(L) ng/mL 2023 9:01 AM [facility] Comment: Interpretation: 10-19 ng/mL (mild to moderate deficiency) ----REFERENCE VALUE---- 25-HYDROXY D TOTAL (D2+D3) Optimum levels in the healthy population are 20-50. ----ADDITIONAL INFORMATION---- This test was developed and its performance characteristics determined by [facility] in a manner consistent with CLIA requirements. This test has not been cleared or approved by the U.S. Food and Drug Administration. Blood (Blood, Venous) 01/28/2024 10:16 AM CDT 01/28/2024 1:32 PM CDT Rod Perales M.D. LAB BLOOD ADD-ON [facility] [address] [place] [address] [facility] [address] [place] [address] [place] [address] * Dehydroepiandrosterone Sulfate (DHEA-S) (01/28/2024 10:16 AM CDT) Dehydroepiandrosterone Sulfate, S 72 5.3 - 124 mcg/dL 01/28/2024 3:53 PM CDT [facility] Blood (Blood, Venous) 01/28/2024 10:16 AM CDT 01/28/2024 2:58 PM CDT Rod Perales M.D. LAB BLOOD ADD-ON Performing Organization Address City/[facility] Co de Phone Number [facility] [address] [place] [address] [facility] [address] [place] [address] * Sedimentation Rate (01/28/2024 10:16 AM CDT) Sedimentation Rate, B 8 3 - 28 mm/h 01/28/2024 11:48 AM CDT [facility] Blood (Blood, Venous) 01/28/2024 10:16 AM CDT 01/28/2024 10:30 AM CDT Rod Perales M.D. LAB BLOOD ADD-ON [facility] [place] [address] [place] [address], [facility] [address] [place] [address] * (ABNORMAL) CBC with Differential, Blood (01/28/2024 [...] CDT Rod Perales M.D. LAB BLOOD ADD-ON [facility] [place] [address] [place] [address], [facility] DTL [facility] [address] [place] [address] [facility] [address] [place] [address] * Rheumatoid Factor (01/28/2024 10:16 AM CDT) Pathologist [facility] Rheumatoid Factor, S <15 <15 IU/mL 01/28/2024 3:40 PM CDT [facility] Blood (Blood, Venous) 01/28/2024 10:16 AM CDT 01/28/2024 3:01 PM CDT Rod Perales M.D. LAB BLOOD ADD-ON [facility] [address] [place] [address] [facility] [address] [place] [address] * CRP (C-Reactive Protein) (01/28/2024 10:16 AM CDT) [facility] C-Reactive Protein (CRP), S <3.0 <5.0 mg/L 01/28/2024 11:09 AM CDT DT Blood (Blood, Venous) 01/28/2024 10:16 AM CDT 01/28/2024 10:42 AM CDT Rod Perales M.D. LAB BLOOD ADD-ON [facility] [place] [address] [place] [address], [facility] [address] [place] [address] * Ferritin (01/28/2024 10:16 AM CDT) Only the most recent of2 resultswithin the time period is included. Pathologist [facility] Ferritin, S 262 11 - 328 mcg/L 01/28/2024 11:09 AM CDT DT Blood (Blood, Venous) 01/28/2024 10:16 AM CDT 01/28/2024 10:42 AM CDT Rod Perales M.D. LAB BLOOD ADD-ON [facility] [place] [address] [place], [place] [address] [place] [address] 200 [place] [address] * CK (Creatine Kinase) (01/28/2024 10:16 AM CDT) Creatine Kinase (CK), S 116 26 - 192 U/L 01/28/2024 11:09 AM CDT DT Blood (Blood, Venous) 01/28/2024 10:16 AM CDT 01/28/2024 10:42 AM CDT Rod Perales M.D. LAB BLOOD ADD-ON [facility] [place] [address] [place] [address] * Cortisol (01/28/2024 10:16 AM CDT) [facility] Cortisol, Random, S 12 mcg/dL 01/28/2024 11:09 AM CDT DT Comment: ----REFERENCE VALUE---- AM ([id number]): 4.8-20 PM ([id number]): 2.5-12 Blood (Blood, Venous) 01/28/2024 10:16 AM CDT 01/28/2024 10:42 AM CDT Rod Perales M.D. LAB BLOOD ADD-ON [facility] [place] [address] [place], [place] [address] [address] [place] [address] * (ABNORMAL) Comprehensive Metabolic Panel (01/28/2024 10:16 AM CDT) Pathologist [facility] Potassium, S 4.4 3.6 - 5.2 mmol/L [...] CDT Rod Perales M.D. LAB BLOOD ADD-ON [facility] [address] [place] [address], [place] DTL [facility] [address] [place] [address] * NT-Pro B-Type Natriuretic Peptide (BNP) (01/15/2024 [...] CDT Vitor Calle M.D. LAB BLOOD ADD-ON [facility] [address] [place] [address], [place] [facility] [place] [place] [address] [place] [address] * (ABNORMAL) Iron and Total Iron-Binding Capacity (01/15/2024 11:41 AM CDT) Pathologist [facility] Iron 45 35 - 145 mcg/dL 01/15/2024 3:26 PM CDT [facility] Total Iron Binding Capacity 224(L) 250 - 400 mcg/dL 01/15/2024 3:26 PM CDT [facility] Percent Saturation 20 14 - 50 % 01/15/2024 3:26 PM CDT [facility] Blood (Blood, Venous) 01/15/2024 11:41 AM CDT 01/15/2024 3:07 PM CDT Tony Schwartz P.A.-C. LAB BLOOD ADD-ON [facility] [address] [place] [address], [facility] [address] [place] [address] * Sodium (01/15/2024 11:41 AM CDT) Sodium, P 139 135 - 145 mmol/L 01/15/2024 2:15 PM CDT [facility] Blood (Blood, Venous) 01/15/2024 11:41 AM CDT 01/15/2024 1:31 PM CDT Vitor Calle M.D. LAB BLOOD ADD-ON [facility] [address], [place] [address], [place] [facility] [facility] [place] [address], [place] [address] * Potassium (01/15/2024 11:41 AM CDT) Potassium, P 4.5 3.6 - 5.2 mmol/L 01/15/2024 2:15 PM CDT [facility] Blood (Blood, Venous) 01/15/2024 11:41 AM CDT 01/15/2024 1:31 PM CDT Vitor Calle M.D. LAB BLOOD ADD-ON [facility] [address] [place] [address], [place] [facility] [facility] [place] [address], [place] [address] * Creatinine with Estimated GFR (01/15/2024 11:41 AM CDT) Creatinine 0.72 0.59 - 1.04 mg/dL 01/15/2024 2:15 PM CDT [facility] Estimated GFR (eGFR) 86 >=60 mL/min/BSA 01/15/2024 2:15 PM CDT [facility] Comment: Estimated GFR calculated using the 2020 CKD_EPI creatinine equation. Blood (Blood, Venous) 01/15/2024 11:41 AM CDT 01/15/2024 1:31 PM CDT Vitor Calle M.D. LAB BLOOD ADD-ON [facility] [address] [place] [address], [place] [facility] [place] [address] [place] [address] * (TTE) 2D ECHO DOPPLER COLOR (01/01/2024 [...] ratio). Calculated 2-D linear left ventricular ejection %. No regional wall motion abnormalities. Grade 1a/3 [...] Advance Directives For more information, please contact: [phone] Documents on File Type Date Recorded Patient On Car Supervisor Expl anation Advance Directives 02/06/2024 9:39 AM [...] Answer Comments Full Code: Discussed Care Teams Souvenir Assembler Relationship Specialty Start Date End Date Erinn Reina M.D. [address] [place] [address] [place] [id number] PCP - General Family Medicine 09/08/21
--- OUTSIDE RECORDS SUMMARY | 2024-03-13 22:11 | XMS_ITS | Encounter Summary ---
Author Organization [facility] Address [address] [place] [id number] Care Team Providers Care Bowling Or Skating Front Desk Clerk Name Role Phone Erinn Reina M.D. Primary Care Provider [phone] Reason for Referral * Physical Therapy (Routine) - Authorized Specialty Diagnoses / Procedures Referred By Osorio guevara Referred To Contact Diagnoses Osteoporosis Pain Low Back Unspecified Pain Back Procedures PT Evaluate and treat Rod Collins M.D. 200 [place] [address] [facility] Region Referral ID Status Reason Start Date Expiration Date V isits Requested Visits Authorized [id number] Authorized 02/05/2024 02/04/2025 99 99 Encounter Details Date Type Department Care Team (Late st Contact Info) Description 02/05/2024 Orders Only Division of Endocrinology in [place], [place] [address] [place] [phone] Rod Collins M.D. [address] [place] [phone] Osteoporosis (Primary Dx); Pain Low Back Unspecified; [...] declined 03/05/2022 How often do you attend [facility] or zoroastrianism services? 1 to 4 times per year [...] Answer Date Recorded PHQ-2 Score 1 08/15/2022 [facility] of Occupat ional Health - Occupational Stress [...] your living situation today? I have a [facility] place to live 04/10/2023 Education Answer Date Recorded What is the highest level of school you have completed or the highest degree you have received? 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 [address] [place] [phone] Elana Winters P, P.T. [address] [place] [phone] 03/24/2024 12:45 PM CDT Clinical Support Department of Physical Medicine and Rehabilitation in [place], [place] [address] [place] [address] Rod Collins M.D. [address] [place] [phone] Elana Winters P, P.T. [address] [place] [phone] 03/31/2024 12:45 PM CDT Clinical Support Department of Physical Medicine and Rehabilitation in [place], [place] [address] [place] [address] Rod Collins M.D. [address] [place] [phone] Elana Winters P, P.T. [address] [place] [phone] 04/07/2024 12:45 PM CDT Clinical Support Department of Physical Medicine and Rehabilitation in [place], [place] [address] [place] [address] Rod Collins M.D. [address] [place] [phone] Elana Winters, P.T. [address] [place] [phone] 04/14/2024 12:45 PM CDT Clinical Support Department of Physical Medicine and Rehabilitation in [place], [place] [address] [place] [address] Rod Collins M.D. [address] [place] [phone] Elana Winters P, P.T. [address] [place] [phone] 04/21/2024 12:45 PM CDT Clinical Support Department of Physical Medicine and Rehabilitation in [place], [place] [address] [place] [address] Rod Collins M.D. [address] [place] [phone] Elana Winters P, P.T. [address] [place] [phone] 04/28/2024 12:45 PM CDT Clinical Support Department of Physical Medicine and Rehabilitation in [place], [place] [address] [place] [phone] Rod Collins M.D. [address] [place] [phone] Elana Winters P, P.T. [address] [place] [phone] documented as of this encounter Visit Diagnoses Diagnosis Osteoporosis- Primary Pain Low Back Unspecified Pain Back documented in this encounter Additional Health Concerns Assessment Noted Time PHQ-9 Depression Total Score: 6 08/15/20 22 2:06 AM RESEARCH ENGINEER MARINE EQUIPMENT documented as of this encounter Care Teams Bowling Or Skating Front Desk Clerk Relationship Specialty Start Date End Date Erinn Reina M.D. [address] [place] [phone] PCP - General Family Medicine 09/08/21 documented as of this encounter
--- OUTSIDE RECORDS SUMMARY | 2024-03-13 22:11 | XMS_ITS | Encounter Summary ---
Author Organization [facility] Address [address] [place] [address] Care Team Providers Care Heel Sewer Name Role Phone Erinn Reina M.D. Primary Care Provider [phone] Reason for Visit * Physical Therapy (Routine) - Canceled Specialty Diagnoses / Procedures Referred By Osorio guevara Referred To Contact Diagnoses Fibromyalgia Pain Low Back Unspecified Procedures PT Ongoing treatment Tony Schwartz P.AAnn-Marie-CAnn-Marie [address] [place] [address] [facility] Region Referral ID Status Reason Start Date Expiration Date V isits Requested Visits Authorized [id number] Canceled 06/07/2023 06/06/2024 99 99 Encounter Details Date Type Department Care Team (Latest Contact Info) Description 02/04/2024 10:00 AM CDT Clinical Support Department of Physical Medicine and Rehabilitation in [place], [place] [address] [place] [phone] Tony Schwartz, PAnn-MarieA.-CAnn-Marie [address] [place] [phone] Elana Griffin, P.TAnn-Marie [address] [place] [phone] Fibromyalgia (Primary Dx); Pain Low Back Unspecified [...] How often do you attend chur or mandaen services? 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 Patient verbalizes she remembers the exercises. AVIS: [email or web address] Access Code: [email or web address] Patient reports fair HEP [...] Department of Physical Medicine and Rehabilitation in [place], [place] [address] [place] [address] Rod Collins M.D. [address] [place] [address] Elana Griffin P.T. [address] [place] [phone] 03/24/2024 12:45 PM CDT Clinical Support Department of Physical Medicine and Rehabilitation in [place], [place] [address] [place] [address] Rod Collins M.D. [address] [place] [phone] Elana Griffin P, P.T. [address] [place] [address] 03/31/2024 12:45 PM CDT Clinical Support Department of Physical Medicine and Rehabilitation in [place], [place] [address] [address] Rod Collins M.D. [address] [place] [phone] Elana Griffin P, P.T. [address] [place] [phone] 04/07/2024 12:45 PM CDT Clinical Support Department of Physical Medicine and Rehabilitation in [place], [place] [address] [place] [address] Rod Collins M.D. [address] [place] [phone] Elana Griffin P, P.T. [address] [place] [phone] 04/14/2024 12:45 PM CDT Clinical Support Department of Physical Medicine and Rehabilitation in [place], [place] [address] [address] Rod Collins M.D. [address] [place] [phone] Elana Griffin P, P.T. [address] [place] [phone] 04/21/2024 12:45 PM CDT Clinical Support Department of Physical Medicine and Rehabilitation in [place], [place] [address] [address] Rod Collins M.D. [address] [place] [phone] Elana Griffin P, P.T. [address] [place] [phone] 04/28/2024 12:45 PM CDT Clinical Support Department of Physical Medicine and Rehabilitation in [place], [place] [address] [address] Rod Collins M.D. [address] [place] [phone] Elana Griffin P, P.T. [address] [place] [phone] documented as of this encounter Visit Diagnoses Diagnosis Fibromyalgia- Primary Pain Low Back Unspecified documented in this encounter Additional Health Concerns Assessment Noted Time PHQ-9 Depression Total Score: 6 08/15/20 22 2:06 AM OPTICAL INSTRUMENTS SUPERVISOR documented as of this encounter Care Teams Heel Sewer Relationship Specialty Start Date End Date Erinn Reina M.D. [address] [place] [phone] PCP - General Family Medicine 09/08/21 documented as of this encounter
--- OUTSIDE RECORDS SUMMARY | 2024-03-13 22:11 | XMS_ITS | Encounter Summary ---
Author Organization [facility] Address [address] [place] [address] Care Team Providers Care Kennel Hand Name Role Phone Erinn Reina M.D. Primary Care Provider [phone] Encounter Details Date Type Department Care Team (Latest Contact Info) Description 02/04/2024 Clinical Communication Division of Endocrinology in [place], [place] [address] [place] [address] Rod Collins M.D. [address] [place] [phone] Social History Tobacco Use Types Packs/Day Years [...] often do you attend chur ch or taoism services? 1 to 4 times per year 03/05/2022 Do you belong to any clubs o r organizations such as jew groups, unions, fraternal or athletic groups, or [...] Answer Date Recorded PHQ-2 Score 1 08/15/2022 [facility] Questionnaire Answer Date [...] your living situation today? I have a [facility] place to live 04/10/2023 Education Answer Date Recorded What is the highest level of school you have completed or the highest degree you have received? 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 [address] [place] [phone] Elana Winters, P.T. [address] [place] [address] 03/24/2024 12:45 PM CDT Clinical Support Department of Physical Medicine and Rehabilitation in [place], [place] [address] [place] [address] Rod Collins M.D. [address] [place] [phone] Elana Winters P, P.T. [address] [facility] [place] [address] 03/31/2024 12:45 PM CDT Clinical Support Department of Physical Medicine and Rehabilitation in [place], [place] [address] [place] [address] Rod Collins M.D. [address] [place] [phone] Elana Winters, P.T. [address] [place] [phone] 04/07/2024 12:45 PM CDT Clinical Support Department of Physical Medicine and Rehabilitation in [place], [place] [address] [place] [address] Rod Collins M.D. [address] [place] [phone] Elana Winters P, P.T. [address] [place] [phone] 04/14/2024 12:45 PM CDT Clinical Support Department of Physical Medicine and Rehabilitation in [place], [place] [address] [place] [address] Rod Collins M.D. [address] [place] [phone] Elana Winters, P.T. [address] [place] [phone] 04/21/2024 12:45 PM CDT Clinical Support Department of Physical Medicine and Rehabilitation in [place], [place] [address] [place] [address] Rod Collins M.D. [address] [place] [address] Elana Winters P, P.T. [address] [place] [phone] 04/28/2024 12:45 PM CDT Clinical Support Department of Physical Medicine and Rehabilitation in [place], [place] [address] [place] [address] Rod Collins M.D. [address] [place] [address] Elana Winters P, P.T. 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 [address] [place] [address] [place] [address] PCP - General Family Medicine 09/08/21 documented as of this encounter
--- OUTSIDE RECORDS SUMMARY | 2024-03-13 22:11 | XMS_ITS | Encounter Summary ---
Author Organization [facility] Address [address] [place] [address] Care Team Providers Care Rolloff Driver Name Role Phone Erinn Reina M.D. Primary Care Provider [phone] Reason for Visit * Physical Therapy (Routine) - Authorized Specialty Diagnoses / Procedures Referred By Osorio guevara Referred To Contact Diagnoses Osteoporosis Pain Low Back Unspecified Pain Back Procedures PT Ongoing treatment Rod Collins M.D. [address] [place] [address] [facility] Referral ID Status Reason Start Date Expiration Date V isits Requested Visits Authorized [id number] Authorized 02/18/2024 02/17/2025 99 99 Encounter Details Date Type Department Care Team (Latest Contact Info) Description 03/10/2024 9:15 AM CDT Clinical Support Department of Physical Medicine and Rehabilitation in [place], [place] [address] [place] [phone] Rod Collins M.D. [address] [place] [phone] Elana Winters P, P.T. [address] [place] [phone] Pain Low Back Unspecified (Primary Dx); Osteoporosis; Pain Back Social History Tobacco Use Types [...] How often do you attend chur or jew services? 1 to 4 times [...] Answer Date Recorded PHQ-2 Score 1 08/15/2022 [facility] - Occupational Stress Questionnaire Answer Date [...] your living situation today? I have a [facility] place to live 04/10/2023 Education Answer Date Recorded What is the highest level of school you have completed or the highest degree you have received? 12th grade 04/14/2019 Sex and Gender Information Value Date Recorded Sex Assigned at Female 10/24/2023 10:51 PM HANDTOOLS REPAIRER Gender Identity Female 02/10/2019 11:51 AM CDT Sexual Orientation Straight 02/10/2019 11 :51 AM CDT documented as of this encounter Progress Notes * Elnaa Winters, P.T. - 03/10/2024 9:15 AM CDT Physical Therapy Outpatient Evaluation/Treatment By co-signing this note, the provider certifies the therapy being provided to this patient is reasonable and necessary for the diagnosis or treatment of this patient. SUBJECTIVE Patient's Name: Marty Rivera Referring Provider: Rod Perales M.D. Visit Diagnosis: 1. Pain Low Back Unspecified 2. Osteoporosis 3. Pain Back Reason for Referral: Chronic Pain Exacerbation that occur throughout her back but most notably in her cervical and thoracic region. Patient also has history with lumbar and sacral symptoms. Onset Date: 02/04/24 Payor: MEDICARE / Plan: MEDICARE A AND B / Product Type: Medicare / Next Heathcare Visit Count: 2 PERTINENT MEDICAL / SURGICAL HISTORY: Patient Active [...] With Loss Of Consciousness Of Unspecified Duration Initial(HCC) Follow Up Examination Status Post Surgery Nodule Thyroid Abdominal Pain Anemia Depression Major One Episode Mild (HCC) Hyperlipidemia Osteopenia Transient Ischemic Attack COVID-19 Infection Anemia Iron Deficiency Osteoporosis Hypertension Pulmonary (HCC) Chronic Right Heart Failure (HCC) Past Surgical History: Procedure Laterality Date ABDOMINAL AORTIC ANEURYSM REPAIR APPENDECTOMY DIAGNOSTIC AORTOGRAM ABDOMEN N/A 05/04/2019 Procedure: IR Abdominal Aortogram.; Surgeon: Tyson Liao M.D.; Location: [facility] OR OOPHORECTOMY, PARTIAL OR TOTAL, UNILATERAL OR BILATERAL;.. OTHER CONVERTED SHX (SEE COMMENT) N/A 01/08/2002 >Colonoscopy with Biopsy SALPINGECTOMY SPINE SURGERY STENT GRAFT ENDOVASCULAR THORACOABDOMINAL AORTA N/A 05/04/2019 Procedure: STENT GRAFT ENDOVASCULAR THORACOABDOMINAL AORTA, JENNIFER [id number], Endovascular repair complex abdominal aortic aneurysm using [...] shoulder range of motion. Prior Function/Occupational Profile: Additional Staff Present During Session: non Patient goals:Improve quality of life and maintain level of independence. Precautions Other Precautions: COPD, osteoporotic, history of compression fracture in thoracic region, fragile skin/ integrity, osteopenia, Anemic OBJECTIVE REVIEW OF SYSTEMS osteoporosis (fracture risk) PHYSICAL EXAM Pain: Vital Signs while on 2 L of oxygen at onset of treatment. Patient attempted room air, and was restarted on her oxygen at 85% and returned to 90-91% Outcome Measures: Patient presents with FOTO functional status score of (MCII: and MDC: ) indicating general functionat stage . The risk adjusted functional status score is . Patient is predicted to have points of functional status change in visits over days based on normative data. Observation/Inspection: Patient is a very pleasant female who presents today with her GRAIN BROKER present. Posture: In stance patient demonstrates a [...] therapy if attendance expectations are not met. TREATMENT Treatment today consisted of: Manual Therapy: [...] for optimal recovery of mobility. In addition [id number]-[id number] glides attempted throughoutthe thoracic region and passive extension mobilization performed for recovery of posture grade 2 progressing up to a grade 3 oscillating as tolerated. Therapeutic Exercise: Passive range of motion of the right shoulder region and left shoulder regionperformed with flexion, abduction, external rotation as tolerated with resistance to external rotation bilaterally x5 Home Exercise Program/Education: [email or web address] Access Code: [email or web address] Assessment Clinical Impression: Patient [...] perform tub transfers. Rehab Potential: Patient has potential to achieve established physical therapy goals within the time frame outlined below, provided active participation in the physical therapy treatment plan and home program. Functional Goals and Timeframes: Plan Patient was educated regarding evaluative findings, [...] of care and goals. Treatment Plan: Plan: Continue with current plan Start of Plan of Care: 03/10/2024 Number of Visits: visits PT Duration: 30 visits PT Frequency: [...] for pain management. Time Spent with Patient Therapeutic Interventions Manual Therapy (min): 30 min Time Tracking Total Timed Units (min): 30 min Total Treatment Time (min): 30 min * Elana Winters P.Sharifa. - 03/10/2024 9:15 AM CDT Physical Therapy Outpatient Treatment Note SUBJECTIVE Patient's Name: Marty Rivera Referring Provider: Rod Perales M.D. Visit Diagnosis: 1. Pain Low Back Unspecified 2. Osteoporosis 3. Pain Back Reason for Referral: Chronic Pain Exacerbation that occur throughout her back but most notably in her cervical and thoracic region. Patient also has history with lumbar and sacral symptoms. Onset Date: 02/04/24 Payor: MEDICARE / Plan: MEDICARE A AND B / Product Type: Medicare / PT Next Certification Date: 05/08/24 Epic Visit Count: 2 Precautions Other Precautions: COPD, osteoporotic, history of compression fracture in thoracic region, fragile skin/ integrity, osteopenia, Anemic History of Present Illness: Patient has long history with Fibromyalgia with episodes of exacerbation of symptoms. Patient has history of fractures in her thoracic region and has continued with have thoracic pain. With patient's complex medical history patient continues to be dependent on use of supplemental oxygen and continues to have progressing kyphosis. WIth patient's medical history her thoracic and cervical region continue to be her primary areas of symptoms with intermittent fibromyalgiaexacerbations. Additional Staff Present During Session: none Patient/Caregiver Goals: Improve quality of life and maintain level of independence. Patient comments: Patient reports she had to cancel her appointment last week as she went into the emergency room due to difficulty breathing. Patient reports she was told she had an exacerbation of her COPD and was provided prednisone. Patient indicates it has been beneficial and she is feeling better than she was. OBJECTIVE Pain: No formal rating was provided today Vitals: On 2 L of oxygen via nasal cannula patient is at 86% oxygen saturation levels 02/18/24: Patient presents with FOTO functional status score of 30 (MCII: 9 and MDC: 10) indicating general function at stage 2. The risk adjusted functional status score is 48. Patient is predicted to have 16 points of functional status change in 12 visits over 55 days based on normative data. Observation/Inspection: Patient presents to appointment today 15 minutes late with her aide. Patient demonstrates significant thoracic kyphosis in sitting position with elevation left side greater than right of the shoulder region and upper quadrant region with elevated and protracted shoulders. Mobility/Transfers: Patient able to perform limited transfers with standby assist from wheelchair to stool for treatment today Gait/Stairs: Patient utilizes wheelchair within the clinic and to and from her vehicle in the parking lot. Patient's aide assists her. Patient demonstrates limited ambulation within treatment room and remains standby assist without assistive device Palpation: Patient demonstrates decreased joint mobility in decreased tissue mobility throughout her thoracic and cervical region and into her superior aspects of bilateral shoulders with increased pain provoked. Joint Mobility: Patient demonstrates minimal thoracic joint mobility in limited retraction of scapular region passively but with relief of symptoms when performed. Ortho Exam TREATMENT Treatment today consisted of: Manual Therapy: In seated position in treatment room with use of cradle soft tissue mobilization isinitiated in the low back lumbar region and progress throughout the thoracic into the cervical region bilaterally. Posterior to anterior mobilizations performed throughout the thoracic region and superior to inferior scapular mobilizations grade 2 as tolerated by the patient. Therapeutic Exercise: Passive range of motion of left shoulder region performed including flexion, abduction, external rotation in various planes of abduction as tolerated by the patient including elbow extension and wrist extension pronation and supination for optimal mobilization of the quadrant. Home Exercise Program/Education: Access Code: [email or web address] URL: [email or web address] Date: 03/10/2024 Prepared by: Elana Winters Exercises - Supine Shoulder Horizontal Abduction with Resistance - 1 x daily - 7 x weekly - 1 sets - 10 reps - Supine Thoracic Mobilization Towel Roll Vertical - 1 x daily - 7 x weekly - 1 sets - 10 reps - Supine Thoracic Mobilization Towel Roll Vertical with Arm Stretch - 1 x daily - 7 x weekly - 1 sets - 10 reps - Supine Thoracic Mobilization Towel Roll Horizontal - 1 x daily - 7 x weekly - 1 sets - 10 reps - Supine Thoracic Mobilization Towel Roll Horizontal with Arm Stretch - 1 x daily - 7 x weekly - 1 sets - 10 reps - Seated Thoracic Self Mobilization - 1 x daily - 7 x weekly - 1 sets - 10 reps - Seated Thoracic Extension at Wall - 1 x daily - 7 x weekly - 1 sets - 10 reps - Shoulder Flexion Wall Slide with Towel - 2 x daily - 7 x weekly - 1 sets - 10 reps - Standing Shoulder Extension with Resistance - 2 x daily - 7 x weekly - 1 sets - 10 reps - Wall Empire - 2 x daily - 7 x weekly - 1 sets - 10 reps Patient reports poor HEP compliance. Assessment Clinical Impression: Patient returns to physical therapy today after absence last week and demonstrates increased elevation and protraction of bilateral upper quadrants. Patient demonstrates increased hypertonicity throughout both upper quadrants and decreased joint mobility of her thoracic into her lumbar region. Patient's symptoms are can consistent with exacerbation of COPD at this time. Patient benefits from physical therapy with increasing shoulder range of motion mobility, improving her overall flexibility mobility and posture throughout her thoracic region therefore reducing intensity of symptoms including back pain and headaches. In addition with improved posture comes benefits of ease of breathing for the patient. Functional Goals and Timeframes: PT Goal #1: Patient is able to [...] independently. PT Goal #4 Date: 05/08/24 Plan Physical Therapy Attestation Statement: Patient agrees with the plan of care and goals. Plan: Continue with current plan Plan for next session: Readdress patient's complaint at end of treatment session for right shoulderpain reviewing home exercise program as well as passive mobility of both shoulders to improve her overall posture and reduce her symptoms. Treatment/Interventions: Therapeutic exercise, Therapeutic functional activity, Neuromuscular re-education, Manual therapy, Self-care/home management Time Spent with Patient Therapeutic Interventions Manual Therapy (min): 30 min Time Tracking Total Timed Units (min): 30 min Total Treatment Time (min): 30 min documented in this encounter Plan of Treatment Upcoming Encounters Date Type Department Care Team (Late st Contact Info) Description 03/17/2024 9:15 AM CDT Clinical Support Department of Physical Medicine and Rehabilitation in [place], [place] [address] [place] [address] Rod Collins M.D. [address] [place] [phone] Elana Winters P, P.T. [address] [place] [phone] 03/24/2024 12:45 PM CDT Clinical Support Department of Physical Medicine and Rehabilitation in [place], [place] [address] [place] [address] Rod Collins M.D. [address] [place] [phone] Elana Winters P, P.T. [address] [place] [phone] 03/31/2024 12:45 PM CDT Clinical Support Department of Physical Medicine and Rehabilitation in [place], [place] [address] [place] [address] Rod Collins M.D. [address] [place] [phone] Elana Winters P, P.T. [address] [place] [phone] 04/07/2024 12:45 PM CDT Clinical Support Department of Physical Medicine and Rehabilitation in [place], [place] [address] [place] [address] Rod Collins M.D. [address] [place] [phone] Elana Winters, P.T. [address] [place] [phone] 04/14/2024 12:45 PM CDT Clinical Support Department of Physical Medicine and Rehabilitation in [address] [address] Rod Collins M.D. [address] [place] [phone] Elana Winters P, P.T. [address] [place] [phone] 04/21/2024 12:45 PM CDT Clinical Support Department of Physical Medicine and Rehabilitation in [address] [address] Rod Collins M.D. [address] [place] [phone] Elana Winters, P.T. [address] [place] [phone] 04/28/2024 12:45 PM CDT Clinical Support Department of Physical Medicine and Rehabilitation in [address] [address] Rod Collins M.D. [address] [place] [phone] Elana Winters, P.T. [address] [place] [phone] documented as of this encounter Visit Diagnoses Diagnosis Pain Low Back Unspecified- Primary Osteoporosis Pain Back documented in this encounter Additional Health Concerns Assessment Noted Time PHQ-9 Depression Total Score: 6 08/15/20 22 2:06 AM HANDTOOLS REPAIRER documented as of this encounter Care Teams Rolloff Driver Relationship Specialty Start Date End Date Erinn Reina M.D. [address] [place] [address] [place] [address] PCP - General Family Medicine 09/08/21 documented as of this encounter
--- OUTSIDE RECORDS SUMMARY | 2024-03-13 22:11 | XMS_ITS | Encounter Summary ---
Author Organization [facility] Address [address] [place] [address] Care Team Providers Care Preschool Program Director Name Role Phone Erinn Reina M.D. Primary Care Provider Reason for Referral * Outpatient (Routine) - Authorized Specialty Diagnoses / Procedures Referred By Osorio guevara Referred To Contact Diagnoses Chronic Obstructive Pulmonary Disease (HCC) Procedures Arterial Blood Gas Arjun Umana M.D. [address] [place] [address] [facility] Referral ID Status Reason Start Date Expiration Date V isits Requested Visits Authorized [id number] Authorized 03/04/2024 03/04/2025 1 1 * Outpatient (Routine) - Authorized Specialty Diagnoses / Procedures Referred By Osorio guevara Referred To Contact Sleep Medicine Diagnoses Chronic Obstructive Pulmonary Disease (HCC) Arjun Umana M.D. [address] [place] [phone] [facility] Referral ID Status Reason Start Date Expiration Date Visits Requested Visits Authorized [id number] Authorized Specialty Services Required 03/04/2024 09/03/2025 1 1 Reason for Visit * Outpatient (Routine) - Closed Specialty Diagnoses / Procedures Referred By Contac t Referred To Contact Pulmonary Medicine Seun Bey M.D. [address] [place] [address] [facility] Referral ID Status Reason Start Date Expiration Date Visits Re quested Visits Authorized [id number] Closed 12/03/2023 06/03/2025 1 1 Encounter Details Date Type Department Care Team (Late st Contact Info) Description 03/04/2024 1:30 PM CDT Office Visit Division of Pulmonary Medicine in [place], [place] [address] [place] [phone] Arjun Umana M.D. [address] [place] [phone] Chronic Obstructive Pulmonary Disease (HCC) (Primary Dx); [...] declined 03/05/2022 How often do you attend [facility] or gnosticism services? 1 to 4 times per year 03/05/2022 Do you belong to any clubs o r organizations such as hinduism groups, unions, fraternal or athletic groups, or [...] 08/15/2022 [facility] [...] your living situation today? I have a [facility] place to live 04/10/2023 Education Answer Date Recorded What is the highest level of school you have completed or the highest degree you have received? 12th grade 04/14/2019 Sex and Gender Information Value Date Recorded Sex Assigned at Female 10/24/2023 10:51 PM CLINICAL CYTOGENETICIST SCIENTIST Gender Identity Female 02/10/2019 11:51 AM CDT [...] Pulmonary Rehab but has to travel to [place] three times per week, which would be [...] remodeling (increased wall thickness to cavity ratio), balyo2j/3 diastolic dysfunction, consistent with mildly elevated filling [...] will look into starting pulmonary rehab in [place]. Immunizations Stay up-to-date with immunizations, including influenza, [...] spent a total of 30 minutes both pmkr-lp-oyct and not oiuh-ip-[id number]. The impression and plans wereexplained in detail. There were no apparent barriers to learning and understanding. All questions were answered. Case will be discussed with science consultant, Dr. Thorpe. Arjun Umana M.D. Division of Pulmonary and Critical Care Medicine, Fellow/PGY-6 [place], [place] [phone] documented in this encounter Plan of Treatment Upcoming Encounters Date Type Department Care Team (Late st Contact Info) Description 03/17/2024 9:15 AM CDT Clinical Support Department of Physical Medicine and Rehabilitation in [place], [place] [address] [place] [address] Rod Collins M.D. [address] [place] [phone] Elana Winters P, P.T. [address] [place] [phone] 03/24/2024 12:45 PM CDT Clinical Support Department of Physical Medicine and Rehabilitation in [place], [place] [address] [place] [address] Rod Collins M.D. [address] [place] [phone] Elana Winters P, P.T. [address] [place] [phone] 03/31/2024 12:45 PM CDT Clinical Support Department of Physical Medicine and Rehabilitation in [place], [place] [address] [place] [address] Rod Collins M.D. [address] [place] [phone] Elana Winters, P.T. [address] [place] [phone] 04/07/2024 12:45 PM CDT Clinical Support Department of Physical Medicine and Rehabilitation in [place], [place] [address] [place] [address] Rod Collins M.D. [address] [place] [phone] Elana Winters P, P.T. [address] [place] [phone] 04/14/2024 12:45 PM CDT Clinical Support Department of Physical Medicine and Rehabilitation in [address] [address] Rod Collins M.D. [address] [place] [phone] Elana Winters, P.T. [address] [place] [phone] 04/21/2024 12:45 PM CDT Clinical Support Department of Physical Medicine and Rehabilitation in [address] [phone] Rod Collins M.D. [address] [place] [phone] Elana Winters, P.T. [address] [place] [phone] 04/28/2024 12:45 PM CDT Clinical Support Department of Physical Medicine and Rehabilitation in [address] [address] Rod Collins M.D. [address] [place] [phone] Elana Winters, P.T. [address] [place] [phone] Scheduled Orders Name Type Priority Associated Diagnoses [...] Total Score: 6 08/15/20 22 2:06 AM CLINICAL CYTOGENETICIST SCIENTIST documented as of this encounter Care Teams Preschool Program Director Relationship Specialty Start Date End Date Erinn Reina M.D. [address] [place] [phone] PCP - General Family Medicine 09/08/21 documented as of this encounter
--- OUTSIDE RECORDS SUMMARY | 2024-03-13 22:11 | XMS_ITS | Encounter Summary ---
Author Organization [facility] Address [address] [place] [address] Care Team Providers Care Bad Cloth Checker Name Role Phone Erinn Reina M.D. Primary Care Provider [phone] Encounter Details Date Type Department Care Team (Late st Contact Info) Description 02/01/2024 Orders Only Division of Endocrinology in [place], [place] [address] [place] [phone] Rod Collins M.D. [address] [place] [phone] Anemia Iron Deficiency (Primary Dx); Osteoporosis Social [...] often do you attend chur ch or islam services? 1 to 4 times per year 03/05/2022 Do you belong to any clubs o r organizations such as yazdanism groups, unions, fraternal or athletic groups, or [...] Answer Date Recorded PHQ-2 Score 1 08/15/2022 [facility] - Occupational [...] your living situation today? I have a [facility] place to live 04/10/2023 Education Answer Date Recorded What is the highest level of school you have completed or the highest degree you have received? 12th grade 04/14/2019 Sex and Gender Information Value Date Recorded Sex Assigned at Female 10/24/2023 10:51 PM CONTROL TOWER RADIO OPERATOR Gender Identity Female 02/10/2019 11:51 AM CDT Sexual Orientation Straight 02/10/2019 11 :51 AM CDT documented as of this encounter Plan of Treatment Upcoming Encounters Date Type Department Care Team (Late st Contact Info) Description 03/17/2024 9:15 AM CDT Clinical Support Department of Physical Medicine and Rehabilitation in [place], [place] [address] [place] [address] Rod Collins M.D. [address] [place] [address] Elana Winters, P.T. [address] [place] [address] 03/24/2024 12:45 PM CDT Clinical Support Department of Physical Medicine and Rehabilitation in [place], [place] [address] [place] [address] Rod Collins M.D. [address] [place] [phone] Elana Winters, P.T. [facility] [place] [address] 03/31/2024 12:45 PM CDT Clinical Support Department of Physical Medicine and Rehabilitation in [place], [place] [address] [place] [address] Rod Collins M.D. [address] [place] [phone] Elana Winters, P.T. [address] [place] [phone] 04/07/2024 12:45 PM CDT Clinical Support Department of Physical Medicine and Rehabilitation in [place], [place] [address] [place] [address] Rod Collins M.D. [address] [place] [phone] Elana Winters P, P.T. [address] [place] [phone] 04/14/2024 12:45 PM CDT Clinical Support Department of Physical Medicine and Rehabilitation in [place], [place] [address] [place] [address] Rod Collins M.D. [address] [place] [phone] Elana Winters, P.T. [address] [place] [phone] 04/21/2024 12:45 PM CDT Clinical Support Department of Physical Medicine and Rehabilitation in [place], [place] [address] [place] [address] Rod Collins M.D. [address] [place] [phone] Elana Winters P, P.T. [address] [place] [phone] 04/28/2024 12:45 PM CDT Clinical Support Department of Physical Medicine and Rehabilitation in [place], [place] [address] [place] [address] Rod Collins M.D. [address] [place] [phone] Elana Winters, P.T. [address] [place] [phone] documented as of this encounter Visit Diagnoses Diagnosis Anemia Iron Deficiency- Primary Osteoporosis documented in this encounter Additional Health Concerns Assessment Noted Time PHQ-9 Depression Total Score: 6 08/15/20 22 2:06 AM CONTROL TOWER RADIO OPERATOR documented as of this encounter Care Teams Bad Cloth Checker Relationship Specialty Start Date End Date Erinn Reina M.D. [address] [place] [address] [place] [address] PCP - General Family Medicine 09/08/21 documented as of this encounter
--- OUTSIDE RECORDS SUMMARY | 2024-03-13 22:11 | XMS_ITS ---
Author Organization [facility] Address [address] [place] [address] Care Team Providers Care Surgical Services Assistant Name Role Phone Unavailable Unavailable Unavailable Surgery Details Not on file Complications Check Surgery Details section. Procedure Estimated Blood Loss Check Surgery Details section. Procedure Findings Check Surgery Details section. Procedure Specimens Taken Check Surgery Details section.
--- OUTSIDE RECORDS SUMMARY | 2024-03-13 22:11 | XMS_ITS | Encounter Summary ---
Author Organization [facility] Address [address] [place] [address] Care Team Providers Care Water Softener Installer Name Role Phone Erinn Reina M.D. Primary Care Provider Encounter Details Date Type Department Care Team (Late st Contact Info) Description 01/29/2024 Clinical Communication Department of Family Medicine, [facility], in [place], [place] [address] [place] [address] Erinn Reina M.D. [address] [place] [address] Social History Tobacco Use Types [...] How often do you attend chur or jewish services? 1 to 4 times per year 03/05/2022 Do you belong to any clubs o r organizations such as mosque groups, unions, fraSikernes Risk Management or athletic groups, or school groups? No [...] [facility]at ion[facility] Health - Occupational Stress Questionnaire Answer Date [...] your living situation today? I have a [facility] place to live 04/10/2023 Education Answer Date Recorded What is the highest level of school you have completed or the highest degree you have received? 12th grade 04/14/2019 Sex and Gender Information Value Date Recorded Sex Assigned at Female 10/24/2023 10:51 PM QUARRYING SPECIALIST Gender Identity Female 02/10/2019 11:51 AM CDT Sexual Orientation Straight 02/10/2019 11 :51 AM CDT documented as of this encounter Plan of Treatment Upcoming Encounters Date Type Department Care Team (Late st Contact Info) Description 03/17/2024 9:15 AM CDT Clinical Support Department of Physical Medicine and Rehabilitation in [place], [place] [address] [place] [address] Rod Collins M.D. [address] [place] [address] Elana Winters, P.T. [address] [place] [address] 03/24/2024 12:45 PM CDT Clinical Support Department of Physical Medicine and Rehabilitation in [place], [place] [address] [place] [address] Rod Collins M.D. [address] [place] [phone] Elana Winters P, P.T. [address] [place] [phone] 03/31/2024 12:45 PM CDT Clinical Support Department of Physical Medicine and Rehabilitation in [place], [place] [address] [place] [address] Rod Collins M.D. [address] [place] [phone] Elana Winters, P.T. [address] [place] [phone] 04/07/2024 12:45 PM CDT Clinical Support Department of Physical Medicine and Rehabilitation in [place], [place] [address] [place] [address] Rod Collins M.D. [address] [place] [phone] Elana Winters, P.T. [address] [place] [phone] 04/14/2024 12:45 PM CDT Clinical Support Department of Physical Medicine and Rehabilitation in [place], [place] [address] [place] [address] Rod Collins M.D. [address] [place] [phone] Elana Winters P, P.T. [address] [place] [phone] 04/21/2024 12:45 PM CDT Clinical Support Department of Physical Medicine and Rehabilitation in [place], [place] [address] [place] [address] Rod Collins M.D. [address] [place] [address] Elana Winters P, P.T. [address] [facility] [place] [place] [address] 04/28/2024 12:45 PM CDT Clinical Support Department of Physical Medicine and Rehabilitation in [place], [place] [address] [place] [address] Rod Collins M.D. [address] [place] [address] Elana Winters, P.T. [address] [place] [phone] Scheduled Orders Name Type Priority Associated Diagnoses Orde r Schedule PUL Home Overnight Oximetry PFT Routine Abnormal Oximetry Expected: 01/29/2024, Expires: 04/29/2025 documented as of this encounter Visit Diagnoses Diagnosis Pain Back- Primary Fracture Vertebra Compression Thoracic Closed Initial (HCC) Abnormal Oximetry documented in this encounter Additional Health Concerns Assessment Noted Time PHQ-9 Depression Total Score: 6 08/15/20 22 2:06 AM QUARRYING SPECIALIST documented as of this encounter Care Teams Water Softener Installer Relationship Specialty Start Date End Date Erinn Reina M.D. [address] [place] [address] [place] [address] PCP - General Family Medicine 09/08/21 documented as of this encounter
--- OUTSIDE RECORDS SUMMARY | 2024-03-13 22:12 | XMS_ITS | Encounter Summary ---
Author Organization [facility] Address [address] [place] [address] Care Team Providers Care Director Of Consumer Affairs Name Role Phone Erinn Reina M.D. Primary Care Provider [phone] Reason for Visit * Physical Therapy (Routine) - Canceled Specialty Diagnoses / Procedures Referred By Osorio guevara Referred To Contact Diagnoses Fibromyalgia Pain Low Back Unspecified Procedures PT Ongoing treatment Tony Schwartz P.AAnn-Marie-CAnn-Marie [address] [place] [address] [facility] Region Referral ID Status Reason Start Date Expiration Date V isits Requested Visits Authorized [id number] Canceled 06/07/2023 06/06/2024 99 99 Encounter Details Date Type Department Care Team (Latest Contact Info) Description 01/17/2024 12:45 PM CDT Clinical Support Department of Physical Medicine and Rehabilitation in [place], [place] [address] [place] [phone] Tony Schwartz, PAnn-MarieA.-CAnn-Marie [address] [place] [phone] Elana Winters, P.TAnn-Marie [address] [place] [phone] Fibromyalgia (Primary Dx); Pain Low Back Unspecified [...] How often do you attend chur or taoism services? 1 to 4 times per year 03/05/2022 Do you belong to any clubs o r organizations such as adventist groups, unions, fraternal or athletic groups, or [...] Answer Date Recorded PHQ-2 Score 1 08/15/2022 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 Patient verbalizes she remembers the exercises. [email or web address]: [email or web address] About [email or web address] Access [email or web address]: [email or web address] Patient reports fair HEP [...] Department of Physical Medicine and Rehabilitation in [address] [address] Rod Collins M.D. [address] [place] [phone] Elana Winters P, P.T. [address] [place] [phone] 03/24/2024 12:45 PM CDT Clinical Support Department of Physical Medicine and Rehabilitation in [address] [address] Rod Collins M.D. [address] [place] [phone] Elana Winters, P.T. [address] [place] [phone] 03/31/2024 12:45 PM CDT Clinical Support Department of Physical Medicine and Rehabilitation in [address] [address] Rod Collins M.D. [address] [place] [phone] Elana Winters P, P.T. [address] [place] [phone] 04/07/2024 12:45 PM CDT Clinical Support Department of Physical Medicine and Rehabilitation in [address] [address] Rod Collins M.D. [address] [place] [phone] Elana Winters, P.T. [address] [place] [phone] 04/14/2024 12:45 PM CDT Clinical Support Department of Physical Medicine and Rehabilitation in [address] [place] [address] Rod Collins M.D. [address] [place] [phone] Elana Winters P, P.T. [address] [place] [phone] 04/21/2024 12:45 PM CDT Clinical Support Department of Physical Medicine and Rehabilitation in [place], [place] [address] [place] [address] Rod Collins M.D. [address] [place] [phone] Elana Winters, P.T. [address] [place] [phone] 04/28/2024 12:45 PM CDT Clinical Support Department of Physical Medicine and Rehabilitation in [place], [place] [address] [place] [address] Rod Collins M.D. [address] [place] [phone] Elana Winters P, P.T. [address] [place] [phone] documented as of this encounter Visit Diagnoses Diagnosis Fibromyalgia- Primary Pain Low Back Unspecified documented in this encounter Additional Health Concerns Assessment Noted Time PHQ-9 Depression Total Score: 6 08/15/20 22 2:06 AM MECHANICAL MAINTENANCE INSTRUCTOR documented as of this encounter Care Teams Director Of Consumer Affairs Relationship Specialty Start Date End Date Erinn Reina M.D. [address] [place] [address] [place] [address] PCP - General Family Medicine 09/08/21 documented as of this encounter
--- OUTSIDE RECORDS SUMMARY | 2024-03-13 22:12 | XMS_ITS | Encounter Summary ---
Author Organization [facility] Address [address] [place] [address] Care Team Providers Care Community Center Director Name Role Phone Erinn Reina M.D. Primary Care Provider Reason for Referral * Outpatient (Routine) - Authorized Specialty Diagnoses / Procedures Referred By Osorio guevara Referred To Contact Cardiovascular Disease Vitor Calle M.D. [address] [place] [address] [facility] Region Referral ID Status Reason Start Date Expiration Date V isits Requested Visits Authorized [id number] Authorized 01/08/2024 07/09/2025 1 1 Reason for Visit * Reason Comments Follow-up Results ECHO * Outpatient (Routine) - Closed Specialty Diagnoses / Procedures Referred By Osorio guevara Referred To Contact Cardiovascular Disease Vitor Calle M.D. [address] [place] [phone] [facility] Region Referral ID Status Reason Start Date Expiration Date Visits Re quested Visits Authorized [id number] Closed 10/09/2023 10/08/2026 1 1 Encounter Details Date Type Department Care Team (Latest Contact Info) Description 01/08/2024 11:30 AM CDT Office Visit Department of Cardiovascular Diseases in [place], [place] [address] [place] [phone] Vitor Calle M.D. 300 [facility] [place] [phone] Dyspnea Multifactorial (Primary Dx) Social History Tobacco [...] How often do you attend chur or voodoo services? 1 to 4 times per year 03/05/2022 Do you belong to any clubs o r organizations such as caodaism groups, unions, fraternal or athletic groups, or [...] 08/15/2022 [facility] - Occupational Stress Questionnaire Answer [...] Sex Assigned at Female 10/24/2023 10:51 PM COIN MACHINE SERVICE REPAIRER Gender Identity Female 02/10/2019 11:51 AM [...] Body Mass Index 16.73 11/01/2023 11:19 AM COIN MACHINE SERVICE REPAIRER documented in this encounter Progress Notes * Vitor Calle M.D. - 01/08/2024 11:30 AM CDT ASSESSMENT / PLAN Dyspnea on exertion, multifactorial, limiting Heart failure with preserved systolic function Pulmonary hypertension, group 3 +/- 2 COPD, emphysema, on O2 29/04 [facility], 10/2021 Right bundle-branch [...] capacity and affecting her quality of life. [place] Heart Association class 3 functional status. Some [...] follow-up and management with Pulmonary Medicine in [place]. We encouraged the patient is scheduling palliative care and pulmonary rehabilitation as recommended by [place]. The patient has been prescribed metoprolol succinate [...] referral to the nicotine cessation Clinic in [place] but she had been seen by them [...] planning with the patient, her [facility] (Tru[facility] visit today. The patient was [...] schedule follow-up appointment with palliative Service in [place], for additional discussions in regards to options [...] with the plan. CARDIOLOGY SUBSEQUENT VISIT Location: [facility] SUBJECTIVE CHIEF COMPLAINT / REASON FOR VISIT Office follow-up. HISTORY OF PRESENT ILLNESS Ms. Marty Rivera is a very pleasant 78 y.o. female who presents to [facility] for follow-up. Her primary [...] not been seen by palliative Medicine in [place] as yet. Compliant with medication without side [...] AND USE 2 SPRAYS IN EACHNOSTRIL DAILY qxkyjwpelty-wpxstggtxlup-yoqhhjhwbd (Trelegy Ellipta) 100-62.5-25 mcg/actuation inhaler Inhale 1 [...] of Physical Medicine and Rehabilitation in [place], [place] [address] [place] [address] Rod Collins M.D. [address] [place] [phone] Elana Winters P, P.T. [address] [place] [phone] 03/24/2024 12:45 PM CDT Clinical Support Department of Physical Medicine and Rehabilitation in [place], [place] [address] [address] Rod Collins M.D. [address] [place] [phone] Elana Winters P, P.T. [address] [place] [phone] 03/31/2024 12:45 PM CDT Clinical Support Department of Physical Medicine and Rehabilitation in [place], [place] [address] [place] [address] Rod Collins M.D. [address] [place] [phone] Elana Winters P, P.T. [address] [place] [phone] 04/07/2024 12:45 PM CDT Clinical Support Department of Physical Medicine and Rehabilitation in [place], [place] [address] [place] [address] Rod Collins M.D. [address] [place] [phone] Elana Winters, P.T. [address] [place] [phone] 04/14/2024 12:45 PM CDT Clinical Support Department of Physical Medicine and Rehabilitation in [address] [address] Rod Collins M.D. [address] [place] [phone] Elana Winters, P.T. [address] [place] [phone] 04/21/2024 12:45 PM CDT Clinical Support Department of Physical Medicine and Rehabilitation in [address] [address] Rod Collins M.D. [address] [place] [phone] Elana Winters, P.T. [address] [place] [phone] 04/28/2024 12:45 PM CDT Clinical Support Department of Physical Medicine and Rehabilitation in [address] [address] Rod Collins M.D. [address] [place] [phone] Elana Winters, P.T. [address] [place] [phone] Scheduled Referrals Name Type Priority Associated Diagnoses [...] M.D. LAB BLOOD ADD-ON Performing Organization Address [facility] Co de Phone Number [facility] [address] [place] [address], [facility] [place] [address] [place] [phone] * Creatinine with Estimated GFR (01/15/2024 11:41 AM CDT) Creatinine 0.72 0.59 - 1.04 mg/dL 01/15/2024 2:15 PM CDT [facility] Estimated GFR (eGFR) 86 >=60 mL/min/BSA 01/15/2024 2:15 PM CDT [facility] Comment: Estimated GFR calculated using the 2020 CKD_EPI creatinine equation. Blood (Blood, Venous) 01/15/2024 11:41 AM CDT 01/15/2024 1:31 PM CDT Vitor Calle M.D. LAB BLOOD ADD-ON Performing Organization Address City/[facility]/ZIP Co de Phone Number [facility] [address] [place] [address], [facility] [place] [address] [place] [address] * Potassium (01/15/2024 11:41 AM CDT) Potassium, P 4.5 3.6 - 5.2 mmol/L 01/15/2024 2:15 PM CDT [facility] Blood (Blood, Venous) 01/15/2024 11:41 AM CDT 01/15/2024 1:31 PM CDT Vitor Calle M.D. LAB BLOOD ADD-ON Performing Organization Address City/[facility]/ZIP Co de Phone Number [facility] [address] [place] [address], [facility] [place] [address] [place] [address] * Sodium (01/15/2024 11:41 AM CDT) Sodium, P 139 135 - 145 mmol/L 01/15/2024 2:15 PM CDT [facility] Blood (Blood, Venous) 01/15/2024 11:41 AM CDT 01/15/2024 1:31 PM CDT Vitor Calle M.D. LAB BLOOD ADD-ON Performing Organization Address City/[facility]/ZIP Co de Phone Number [facility] [address] [place] [address], [facility] [place] [address] [address] documented in this encounter Visit Diagnoses Diagnosis Dyspnea Multifactorial- Primary documented in this encounter Additional Health Concerns Assessment Noted Time PHQ-9 Depression Total Score: 6 08/15/20 22 2:06 AM COIN MACHINE SERVICE REPAIRER documented as of this encounter Care Teams Community Center Director Relationship Specialty Start Date End Date Erinn Reina M.D. [address] [place] [phone] PCP - General Family Medicine 09/08/21 documented as of this encounter
--- OUTSIDE RECORDS SUMMARY | 2024-03-13 22:12 | XMS_ITS | Encounter Summary ---
Author Organization [facility] Address [address] [place] [address] Care Team Providers Care Dip Stand Loader Name Role Phone Erinn Reina M.D. Primary Care Provider [phone] Reason for Visit * Physical Therapy (Routine) - Canceled Specialty Diagnoses / Procedures Referred By Osorio guevara Referred To Contact Diagnoses Fibromyalgia Pain Low Back Unspecified Procedures PT Ongoing treatment Tony Schwartz P.AAnn-Marie-CAnn-Marie [address] [place] [address] [facility] Region Referral ID Status Reason Start Date Expiration Date V isits Requested Visits Authorized [id number] Canceled 06/07/2023 06/06/2024 99 99 Encounter Details Date Type Department Care Team (Latest Contact Info) Description 01/02/2024 9:15 AM CDT Clinical Support Department of Physical Medicine and Rehabilitation in [place], [place] [address] [place] [phone] Tony Schwartz, PAnn-MarieA.-CAnn-Marie [address] [place] [phone] Elana Winters, P.TAnn-Marie [address] [place] [phone] Fibromyalgia (Primary Dx); Pain Low Back Unspecified [...] How often do you attend chur or judaism services? 1 to 4 times per year 03/05/2022 Do you belong to any clubs o r organizations such as worship groups, unions, fraternal or athletic groups, or [...] Answer Date Recorded PHQ-2 Score 1 08/15/2022 [facility] [place] [facility] Occupat ional [facility] - Occupational Stress [...] Sex Assigned at Female 10/24/2023 10:51 PM EARLY CHILDHOOD TEACHER ASSISTANT Gender Identity Female 02/10/2019 11:51 AM [...] grossly 35 minutes.Patient reports she saw her beauty sales consultant and has a scheduled appointment with her wildfire prevention specialist next week again. Patient reports her back continues to hurt throughout and believes she has having a fibromyalgia exacerbation due to the nature of her pain in the location is throughout her back versus localized areas. OBJECTIVE Pain: Not formally rated today. 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 Patient verbalizes she remembers the exercises. Avatar Reality: [email or web address] Access Code: [email or web address] Patient reports fair HEP [...] Department of Physical Medicine and Rehabilitation in [place], [place] [address] [place] [address] Rod Collins M.D. [address] [place] [address] Elana Winters, P.T. [address] [place] [address] 03/24/2024 12:45 PM CDT Clinical Support Department of Physical Medicine and Rehabilitation in [place], [place] [address] [place] [address] Rod Collins M.D. [address] [place] [phone] Elana Winters P, P.T. [address] [place] [phone] 03/31/2024 12:45 PM CDT Clinical Support Department of Physical Medicine and Rehabilitation in [place], [place] [address] [place] [address] Rod Collins M.D. [address] [place] [phone] Elana Winters P, P.T. [address] [place] [phone] 04/07/2024 12:45 PM CDT Clinical Support Department of Physical Medicine and Rehabilitation in [place], [place] [address] [place] [address] Rod Collins M.D. [address] [place] [phone] Elana Winters P, P.T. [address] [place] [phone] 04/14/2024 12:45 PM CDT Clinical Support Department of Physical Medicine and Rehabilitation in [place], [place] [address] [place] [address] Rod Collins M.D. [address] [place] [phone] Elana Winters, P.T. [address] [place] [phone] 04/21/2024 12:45 PM CDT Clinical Support Department of Physical Medicine and Rehabilitation in [place], [place] [address] [place] [address] Rod Collins M.D. [address] [place] [address] Elana Winters, P.T. [address] [place] [address] 04/28/2024 12:45 PM CDT Clinical Support Department of Physical Medicine and Rehabilitation in [place], [place] [address] [place] [address] Rod Collins M.D. [address] [place] [address] Elana Winters, P.T. [address] [place] [phone] documented as of this encounter Visit Diagnoses Diagnosis Fibromyalgia- Primary Pain Low Back Unspecified documented in this encounter Additional Health Concerns Assessment Noted Time PHQ-9 Depression Total Score: 6 08/15/20 22 2:06 AM EARLY CHILDHOOD TEACHER ASSISTANT documented as of this encounter Care Teams Dip Stand Loader Relationship Specialty Start Date End Date Erinn Reina M.D. [address] [place] [phone] PCP - General Family Medicine 09/08/21 documented as of this encounter
--- OUTSIDE RECORDS SUMMARY | 2024-03-13 22:12 | XMS_ITS | Encounter Summary ---
Author Organization [facility] Address [address] [place] [address] Care Team Providers Care Manufacturing Production Technician Name Role Phone Erinn Reina M.D. Primary Care Provider [phone] Reason for Referral * Outpatient (Routine) - Authorized Specialty Diagnoses / Procedures Referred By Osorio guevara Referred To Contact Erinn Reina M.D. [address] [place] [phone] [facility] Region Referral ID Status Reason Start Date Expiration Date V isits Requested Visits Authorized [id number] Authorized 01/07/2024 07/08/2025 1 1 Scheduling Instructions Nurse AWV Do not schedule prior to due date to ensure insurance coverage Visit: Medicare Annual Wellness Never done. * Outpatient (Routine) - Authorized Specialty Diagnoses / Procedures Referred By Osorio guevara Referred To Contact Family Medicine Erinn Reina M.D. [address] [place] [address] [facility] Region Referral ID Status Reason Start Date Expiration Date V isits Requested Visits Authorized [id number] Authorized 01/07/2024 07/08/2025 1 1 Scheduling Instructions Medicare annual provider visit/HCC gaps Do not schedule prior to due date to ensure insurance coverage Visit: Medicare Annual Wellness Never done. Encounter Details Date Type Department Care Team (Late st Contact Info) Description 01/07/2024 Orders Only [facility] [place] Erinn Reina M.D. [address] [place] [address] [place] [phone] Social History Tobacco Use Types Packs/Day Years [...] How often do you attend chur or samaritan services? 1 to 4 times per year 03/05/2022 Do you belong to any clubs o r organizations such as rastafari groups, unions, fraternal or athletic groups, or [...] Answer Date Recorded PHQ-2 Score 1 08/15/2022 [facility] - Occupational Stress Questionnaire [...] Sex Assigned at Female 10/24/2023 10:51 PM ASSOCIATE MARKETING MANAGER Gender Identity Female 02/10/2019 11:51 AM CDT Sexual Orientation Straight 02/10/2019 11 :51 AM CDT documented as of this encounter Plan of Treatment Upcoming Encounters Date Type Department Care Team (Late st Contact Info) Description 03/17/2024 9:15 AM CDT Clinical Support Department of Physical Medicine and Rehabilitation in [place], [place] [address] [place] [address] Rod Collins M.D. [address] [place] [address] Elana Winters P, P.T. [address] [place] [address] 03/24/2024 12:45 PM CDT Clinical Support Department of Physical Medicine and Rehabilitation in [place], [place] [address] [place] [address] Rod Collins M.D. [address] [place] [address] Elana Winters P, P.T. [address] [place] [address] 03/31/2024 12:45 PM CDT Clinical Support Department of Physical Medicine and Rehabilitation in [place], [place] [address] [place] [address] Rod Collins M.D. [address] [place] [address] Elana Winters P, P.T. [address] [place] [address] 04/07/2024 12:45 PM CDT Clinical Support Department of Physical Medicine and Rehabilitation in [place], [place] [address] [place] [address] Rod Collins M.D. [address] [place] [phone] Elana Winters, P.T. [address] [place] [address] 04/14/2024 12:45 PM CDT Clinical Support Department of Physical Medicine and Rehabilitation in [place], [place] [address] [place] [address] Rod Collins M.D. [address] [place] [phone] Elana Winters, P.T. [address] [place] [address] 04/21/2024 12:45 PM CDT Clinical Support Department of Physical Medicine and Rehabilitation in [place], [place] [address] [place] [address] Rod Collins M.D. [address] [place] [phone] Elana Winters, P.T. [facility] [place] [address] 04/28/2024 12:45 PM CDT Clinical Support Department of Physical Medicine and Rehabilitation in [place], [place] [address] [place] [address] Rod Collins M.D. [address] [place] [phone] Elana Winters, P.T. [address] [place] [address] Scheduled Referrals Name Type Priority Associated Diagnoses Orde r Schedule Family Medicine office visit (clinic) Outpatient Referral Routine Expected: 02/04/2024, Expires: 07/05/2024 Primary Care nurse visit (clinic) - [facility]; Medicare Annual Wellness Outpatient Referral Routine Expected: 02/04/2024, Expires: 07/05/2024 documented as of this encounter Visit Diagnoses Not on filedocumented in this encounter Additional Health Concerns Assessment Noted Time PHQ-9 Depression Total Score: 6 08/15/20 22 2:06 AM ASSOCIATE MARKETING MANAGER documented as of this encounter Care Teams Manufacturing Production Technician Relationship Specialty Start Date End Date Erinn Reina M.D. [address] [place] [address] [place] [phone] PCP - General Family Medicine 09/08/21 documented as of this encounter
--- OUTSIDE RECORDS SUMMARY | 2024-03-13 22:12 | XMS_ITS | Encounter Summary ---
Author Organization [facility] Address [address] [place] [address] Care Team Providers Care Jamb Cutter Name Role Phone Erinn Reina M.D. Primary Care Provider [phone] Reason for Visit * Physical Therapy (Routine) - Canceled Specialty Diagnoses / Procedures Referred By Osorio guevara Referred To Contact Diagnoses Fibromyalgia Pain Low Back Unspecified Procedures PT Ongoing treatment Tony Schwartz P.AAnn-Marie-CAnn-Marie [address] [place] [address] [facility] Region Referral ID Status Reason Start Date Expiration Date V isits Requested Visits Authorized [id number] Canceled 06/07/2023 06/06/2024 99 99 Encounter Details Date Type Department Care Team (Latest Contact Info) Description 01/06/2024 12:30 PM CDT Clinical Support Department of Physical Medicine and Rehabilitation in [place], [place] [address] [place] [phone] Tony Schwartz, P.A.-CAnn-Marie [address] [place] [phone] Elana Winters, P.TAnn-Marie [address] [place] [phone] Fibromyalgia; Pain Low Back Unspecified Social History [...] How often do you attend chur or temple services? 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 Patient reports she is having [...] side greater then her right Patient is OUTPATIENT SCHEDULER - was present for transportation Vitals: 92% [...] mobility. Patient verbalizes she remembers the exercises. Zonder: [email or web address] Access Code: [email or web address] Patient reports fair HEP [...] Department of Physical Medicine and Rehabilitation in [address] [address] Rod Collins M.D. [address] [place] [address] Elana Winters P, P.T. [facility] [place] [address] 03/24/2024 12:45 PM CDT Clinical Support Department of Physical Medicine and Rehabilitation in [place], [place] [address] [address] Rod Collins M.D. [address] [place] [phone] Elana Winters, P.T. [address] [place] [phone] 03/31/2024 12:45 PM CDT Clinical Support Department of Physical Medicine and Rehabilitation in [place], [place] [address] [address] Rod Collins M.D. [address] [place] [phone] Elana Winters P, P.T. [address] [place] [phone] 04/07/2024 12:45 PM CDT Clinical Support Department of Physical Medicine and Rehabilitation in [place], [place] [address] [address] Rod Collins M.D. [address] [place] [phone] Elana Winters, P.T. [address] [place] [phone] 04/14/2024 12:45 PM CDT Clinical Support Department of Physical Medicine and Rehabilitation in [place], [place] [address] [address] Rod Collins M.D. [address] [place] [phone] Elana Winters P, P.T. [address] [place] [phone] 04/21/2024 12:45 PM CDT Clinical Support Department of Physical Medicine and Rehabilitation in [place], [place] [address] [address] Rod Collins M.D. [address] [place] [phone] Elana Winters, P.T. [address] [place] [phone] 04/28/2024 12:45 PM CDT Clinical Support Department of Physical Medicine and Rehabilitation in [place], [place] [address] [place] [address] Rod Collins M.D. [address] [place] [phone] Elana Winters P, P.T. [address] [place] [phone] documented as of this encounter Visit Diagnoses Diagnosis Fibromyalgia Pain Low Back Unspecified documented in this encounter Additional Health Concerns Assessment Noted Time PHQ-9 Depression Total Score: 6 08/15/20 22 2:06 AM LITHOGRAPHIC PRESS OPERATOR documented as of this encounter Care Teams Jamb Cutter Relationship Specialty Start Date End Date Erinn Reina M.D. [address] [place] [address] [place] [address] PCP - General Family Medicine 09/08/21 documented as of this encounter
--- OUTSIDE RECORDS SUMMARY | 2024-03-13 22:12 | XMS_ITS | Encounter Summary ---
Author Organization [facility] Address [address] [place] [address] Care Team Providers Care Record Librarian Name Role Phone Erinn Reina M.D. Primary Care Provider Encounter Details Date Type Department Care Team (Late st Contact Info) Description 01/09/2024 Orders Only Department of Vascular Medicine in [place], [place] [address] [place] [address] Tony Schwartz P.A.-C. [address] [place] [phone] Anemia Iron Deficiency (Primary Dx) Social History [...] How often do you attend chur or taoist services? 1 to 4 times per year 03/05/2022 Do you belong to any clubs o r organizations such as worship groups, unions, fraICONOGRAFICO or athletic groups, or school groups? No [...] Answer Date Recorded PHQ-2 Score 1 08/15/2022 [facility] of Occupat ionil Health - Occupational Stress Questionnaire Answer Date [...] living situation today? I have a [facility] place to live 04/10/2023 Education Answer Date Recorded What is the highest level of school you have completed or the highest degree you have received? 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 [address] [place] [address] Elana Winters, P.T. [address] [place] [address] 03/24/2024 12:45 PM CDT Clinical Support Department of Physical Medicine and Rehabilitation in [place], [place] [address] [place] [address] Rod Collins M.D. [address] [place] [phone] Elana Winters P, P.T. [facility] [place] [address] 03/31/2024 12:45 PM CDT Clinical Support Department of Physical Medicine and Rehabilitation in [place], [place] [address] [place] [address] Rod Collins M.D. [address] [place] [phone] Elana Winters, P.T. [address] [place] [phone] 04/07/2024 12:45 PM CDT Clinical Support Department of Physical Medicine and Rehabilitation in [place], [place] [address] [place] [address] Rod Collins M.D. [address] [place] [phone] Elana Winters P, P.T. [address] [place] [phone] 04/14/2024 12:45 PM CDT Clinical Support Department of Physical Medicine and Rehabilitation in [place], [place] [address] [place] [address] Rod Collins M.D. [address] [place] [phone] Elana Winters, P.T. [address] [place] [phone] 04/21/2024 12:45 PM CDT Clinical Support Department of Physical Medicine and Rehabilitation in [place], [place] [address] [place] [address] Rod Collins M.D. [address] [place] [phone] Elana Winters, P.T. [address] [place] [address] 04/28/2024 12:45 PM CDT Clinical Support Department of Physical Medicine and Rehabilitation in [place], [place] [address] [place] [address] Rod Collins M.D. [address] [place] [address] Elana Winters P, P.T. [address] [place] [phone] documented as of this encounter Results * (ABNORMAL) Iron and Total Iron-Binding Capacity (01/15/2024 11:41 AM CDT) [facility] Iron 45 35 - 145 mcg/dL 01/15/2024 3:26 PM CDT [facility] Total Iron Binding Capacity 224(L) 250 - 400 mcg/dL 01/15/2024 3:26 PM CDT [facility] Percent Saturation 20 14 - 50 % 01/15/2024 3:26 PM CDT [facility] Blood (Blood, Venous) 01/15/2024 11:41 AM CDT 01/15/2024 3:07 PM CDT Tony Schwartz P.A.-C. LAB BLOOD ADD-ON [facility] [address] [place] [address], [facility] AUST [facility] [address] [place] [address] * (ABNORMAL) Ferritin (01/15/2024 11:41 AM CDT) Ferritin, S 347(H) 11 - 328 mcg/L 01/15/2024 2:25 PM CDT [facility] Comment: Biotin has been identified by the forest products gatherer as a potential interfering substance. Higher concentrations of biotin may be found in multivitamins, hair/nail supplements, and workout supplements. If the result does not match clinical observations, repeat testing after patient refrains from the use of supplements for at least 12 hours. Blood (Blood, Venous) 01/15/2024 11:41 AM CDT 01/15/2024 1:31 PM CDT Tony Schwartz P.A.-C. LAB BLOOD ADD-ON Performing Organization Address City/State/[facility] Co de Phone Number [facility] [address] [place] [phone], [facility] OW[address] [facility] [place] [address] [place] [address] * (ABNORMAL) CBC with Differential, Blood (01/15/2024 [...] CDT Tony Schwartz P.A.-C. LAB BLOOD ADD-ON [facility] [address] [place] [address], [facility] [id number] [facility] [place] [address] [place] [address] documented in this encounter Visit Diagnoses Diagnosis Anemia Iron Deficiency- Primary documented in this encounter Additional Health Concerns Assessment Noted Time PHQ-9 Depression Total Score: 6 08/15/20 22 2:06 AM BUCKET CHUCKER documented as of this encounter Care Teams Record Librarian Relationship Specialty Start Date End Date Erinn Reina M.D. [address] [place] [address] PCP - General Family Medicine 09/08/21 documented as of this encounter
--- OUTSIDE RECORDS SUMMARY | 2024-03-13 22:12 | XMS_ITS | Encounter Summary ---
Author Organization [facility] Address [address] [place] [address] Care Team Providers Care Industrial Relations Commissioner Name Role Phone Erinn Reina M.D. Primary Care Provider [phone] Reason for Referral * Outpatient (Routine) - Authorized Specialty Diagnoses / Procedures Referred By Contac t Referred To Contact Diagnoses Fracture Vertebra Compression Thoracic Closed Initial (HCC) Osteoporosis Procedures BMD Vertebral Fracture Assessment Rod Collins M.D. [address] [place] [address] [facility] Referral ID Status Reason Start Date Expiration Date V isits Requested Visits Authorized [id number] Authorized 01/28/2024 01/27/2025 1 1 * Outpatient (Routine) - Authorized Specialty Diagnoses / Procedures Referred By Contac t Referred To Contact Diagnoses Fracture Vertebra Compression Thoracic Closed Initial (HCC) Osteoporosis Procedures BMD Bone Density Spine Hips Rod Collins M.D. [address] [place] [phone] [facility] Referral ID Status Reason Start Date Expiration Date V isits Requested Visits Authorized [id number] Authorized 01/28/2024 01/27/2025 1 1 * Outpatient (Routine) - Authorized Specialty Diagnoses / Procedures Referred By Contac t Referred To Contact Endocrinology Diagnoses Fracture Vertebra Compression Thoracic Closed Initial (HCC) Osteoporosis Rod Collins M.D. [address] [place] [phone] [facility] Referral ID Status Reason Start Date Expiration Date V isits Requested Visits Authorized [id number] Authorized 01/28/2024 07/29/2025 1 1 Scheduling Instructions Fellow or bone SERA * Specialty Diagnoses / Procedures Referred By Contson t Referred To Contact Rod Collins M.D. [address] [place] [phone] [facility] Referral ID Status Reason Start Date Expiration Date Visits Re quested Visits Authorized Scheduling Instructions Schedule at the end of the itinerary. * Specialty Diagnoses / Procedures Referred By Osorio t Referred To Contact Rod Collins M.D. [address] [place] [phone] [facility] Referral ID Status Reason Start [...] Closed Initial (HCC) Rod Collins M.D. [address] [place] [phone] [facility] Referral ID Status Reason Start Date Expiration Date V isits Requested Visits Authorized [id number] Authorized 01/28/2024 07/29/2025 1 1 Scheduling Instructions Ideally schedule after RN Education Session 1 and before RN Education Session 2. If Stress schedules are full, okay to schedule after RN Education Session 2. * Specialty Diagnoses / Procedures Referred By Contson t Referred To Contact Rod Collins M.D. [address] [place] [phone] [facility] Referral ID Status Reason Start [...] Physical Therapy (Clinic) Rod Collins M.D. [address] [place] [phone] [facility] Referral ID Status Reason Start Date Expiration Date V isits Requested Visits Authorized [id number] Authorized 01/28/2024 01/27/2025 99 99 * Specialty Diagnoses / Procedures Referred By Osorio t Referred To Contact Rod Collins M.D. [address] [place] [phone] [facility] Referral ID Status Reason Start Date Expiration Date Visits Re quested Visits Authorized Scheduling Instructions Schedule after RN Education Session 1 and before RN Education Session 2. * Specialty Diagnoses / Procedures Referred By Osorio t Referred To Contact Rod Collins M.D. [address] [place] [phone] Referral ID Status Reason Start Date Expiration Date Visits Re quested Visits Authorized * Outpatient (Routine) - Authorized Specialty Diagnoses / Procedures Referred By Contac t Referred To Contact Integrative Medicine Diagnoses Pain Back Fracture Vertebra Compression Thoracic Closed Initial (HCC) Rod Collins M.D. [address] [place] [phone] [facility] Referral ID Status Reason Start Date Expiration Date V isits Requested Visits Authorized [id number] Authorized 01/28/2024 07/29/2025 1 1 Reason for Visit * Outpatient (Routine) - Closed Specialty Diagnoses / Procedures Referred By Osorio guevara Referred To Contact Endocrinology Diagnoses Pain Back Fracture Vertebra Compression Thoracic Closed Initial (HCC) Jesus Feng APRN, C.N.P. [address] [place] [phone] [facility] Referral ID Status Reason Start Date Expiration Date Visits Re quested Visits Authorized [id number] Closed 10/28/2023 04/28/2025 1 1 Encounter Details Date Type Department Care Team (Latest Contact Info) Description 01/28/2024 9:00 AM CDT Comprehensive Visit Division of Endocrinology in [place], [place] [address] [place] [phone] Jesus Feng APRN, C.N.P. [address] [place] [phone] Rod Collins M.D. [address] [place] [phone] Osteoporosis (Primary Dx); Pain Back; Fracture Vertebra [...] r organizations such as episcopalian groups, unions, fraternal or athletic groups, or [...] Answer Date Recorded PHQ-2 Score 1 08/15/2022 [facility] Occupat ional Health - Occupational [...] your living situation today? I have a [facility] place to live 04/10/2023 Education Answer Date Recorded What is the highest level of school you have completed or the highest degree you have received? 12th grade 04/14/2019 Sex and Gender Information Value Date Recorded Sex Assigned at Female 10/24/2023 10:51 PM INLETTER Gender Identity Female 02/10/2019 11:51 AM CDT [...] strength. GAIT: Decreased sitting and standing balance. [id number] with assistance Labs: Lab Results Component Value [...] evenity at thistime (No known history of NH or stroke). We will plan on doing [...] Department of Physical Medicine and Rehabilitation in [place] [address] [place] [address] Rod Collins M.D. [address] [place] [address] Elana Winters P, P.T. [address] [place] [phone] 03/24/2024 12:45 PM CDT Clinical Support Department of Physical Medicine and Rehabilitation in [place] [address] [place] [address] Rod Collins M.D. [address] [place] [phone] Elana Winters P, P.T. [address] [place] [phone] 03/31/2024 12:45 PM CDT Clinical Support Department of Physical Medicine and Rehabilitation in [place] [address] [place] [address] Rod Collins M.D. [address] [place] [phone] Elana Winters P, P.T. [place] [address] 04/07/2024 12:45 PM CDT Clinical Support Department of Physical Medicine and Rehabilitation in [place], [place] [address] [place] [address] Rod Collins M.D. [address] [place] [phone] Elana Winters, P.T. [address] [place] [phone] 04/14/2024 12:45 PM CDT Clinical Support Department of Physical Medicine and Rehabilitation in [place], [place] [address] [place] [address] Rod Collins M.D. [address] [place] [phone] Elana Winters P, P.T. [address] [place] [phone] 04/21/2024 12:45 PM CDT Clinical Support Department of Physical Medicine and Rehabilitation in [place], [place] [address] [place] [address] Rod Collins M.D. [address] [place] [phone] Elana Winters, P.T. [place] [address] 04/28/2024 12:45 PM CDT Clinical Support Department of Physical Medicine and Rehabilitation in [place], [place] [address] [place] [phone] Rod Collins M.D. [address] [place] [address] Elana Winters, P.T. [address] [place] [address] Scheduled Orders Name Type Priority Associated Diagnoses [...] developed and its performance characteristics determined by [facility] in a manner consistent with CLIA requirements. This test has not been cleared or approved by the U.S. Food and Drug Administration. Blood (Blood, Venous) 01/28/2024 10:16 AM CDT 01/28/2024 2:02 PM CDT Narrative [facility] - 01/29/2024 12:53 PM CDT Specimen Information: Specimen ID: [id number] Specimen Type: Blood Specimen Collection Start Date: 01/28/2024 10:16 AM Specimen Received Date: 01/28/2024 ??2:02 PM Specimen ID: [id number] Specimen Type: Blood Specimen Collection Start Date: 01/28/2024 10:16 AM Specimen Received Date: 01/28/2024 ??1:55 PM Rod Perales M.D. LAB BLOOD ADD-ON Performing Organization Address [facility] Co de Phone Number [facility] [address] [place] [address] [facility] [address] [place] [address] [place] [id number] [place] [address] [place] [address] * Celiac Disease Serology [place] (01/28/2024 10:16 AM CDT) [facility] Immunoglobulin A (IgA), S 304 61 - 356 mg/dL 01/28/2024 2:56 PM CDT [facility] Celiac Disease Interpretation See Comment: Negative serology. Celiac disease unlikely. However, approximately 10% of patients with celiac disease are seronegative. Also, patients who are already adhering to a gluten-free diet may be seronegative. If celiac disease is highly clinically suspected, consider HLA-DQ typing. 01/28/2024 9:15 PM CDT [facility] Blood (Blood, Venous) 01/28/2024 10:16 AM CDT 01/28/2024 2:02 PM CDT Narrative [facility] - 01/28/2024 9:15 PM CDT Specimen Information: Specimen ID: [id number] Specimen Type: Blood Specimen Collection Start Date: 01/28/2024 10:16 AM Specimen Received Date: 01/28/2024 ??2:02 PM Specimen ID: [id number] Specimen Type: Blood Specimen Collection Start Date: 01/28/2024 10:16 AM Specimen Received Date: 01/28/2024 ??2:00 PM Rod Perales M.D. LAB BLOOD ADD-ON [facility] [address] [place] [address] [facility] [address] [place] [address] [facility] [address] [place] [address] [place] [address] * Cortisol (01/28/2024 10:16 AM CDT) Cortisol, Random, S 12 mcg/dL 01/28/2024 11:09 AM CDT [facility] Comment: ----REFERENCE VALUE---- AM ([id number]): 4.8-20 PM (1023-5421): 2.5-12 Blood (Blood, Venous) 01/28/2024 10:16 AM CDT 01/28/2024 10:42 AM CDT Rod Perales M.D. LAB BLOOD ADD-ON Performing Organization Address City/[facility]/ZIP Co de Phone Number [facility] [address] [place] [address], [facility] [address] [place] [address] * Rheumatoid Factor (01/28/2024 10:16 AM CDT) Pathologist [facility] Rheumatoid Factor, S <15 <15 IU/mL 01/28/2024 3:40 PM CDT [facility] Blood (Blood, Venous) 01/28/2024 10:16 AM CDT 01/28/2024 3:01 PM CDT Rod Perales M.D. LAB BLOOD ADD-ON [facility] [address] [place] [address] [facility] [address] [place] [address] * CK (Creatine Kinase) (01/28/2024 10:16 AM CDT) Creatine Kinase (CK), S 116 26 - 192 U/L 01/28/2024 11:09 AM CDT [facility] Blood (Blood, Venous) 01/28/2024 10:16 AM CDT 01/28/2024 10:42 AM CDT Rod Perales M.D. LAB BLOOD ADD-ON [facility] [address] [place], [place] [address] [address] [place] [address] * (ABNORMAL) Thyroid Function [place] (01/28/2024 10:16 AM CDT) TSH, Sensitive 4.4(H) 0.3 - 4.2 mIU/L 01/28/2024 11:09 AM CDT [facility] Blood (Blood, Venous) 01/28/2024 10:16 AM CDT 01/28/2024 10:42 AM CDT Rod Perales M.D. LAB BLOOD ADD-ON Performing Organization Address City/[facility]/ZIP Co de Phone Number [facility] [address] [place], [place] [address] [address] [place] [address] * CRP (C-Reactive Protein) (01/28/2024 10:16 AM CDT) C-Reactive Protein (CRP), S <3.0 <5.0 mg/L 01/28/2024 11:09 AM CDT [facility] Blood (Blood, Venous) 01/28/2024 10:16 AM CDT 01/28/2024 10:42 AM CDT Rod Perales M.D. LAB BLOOD ADD-ON [facility] [address] [place], [place] [address] [address] [place] [address] * Sedimentation Rate (01/28/2024 10:16 AM CDT) Sedimentation Rate, B 8 3 - 28 mm/h 01/28/2024 11:48 AM CDT DT Blood (Blood, Venous) 01/28/2024 10:16 AM CDT 01/28/2024 10:30 AM CDT Rod Perales M.D. LAB BLOOD ADD-ON [facility] [address] [place] [address], [facility] [address] [place] [address] * Dehydroepiandrosterone Sulfate (DHEA-S) (01/28/2024 10:16 AM CDT) Dehydroepiandrosterone Sulfate, S 72 5.3 - 124 mcg/dL 01/28/2024 3:53 PM CDT [facility] Blood (Blood, Venous) 01/28/2024 10:16 AM CDT 01/28/2024 2:58 PM CDT Rod Perales M.D. LAB BLOOD ADD-ON [facility] [address] [place] [address] [facility] [address] [place] [address] * Ferritin (01/28/2024 10:16 AM CDT) Ferritin, S 262 11 - 328 mcg/L 01/28/2024 11:09 AM CDT DT Blood (Blood, Venous) 01/28/2024 10:16 AM CDT 01/28/2024 10:42 AM CDT Rod Perales M.D. LAB BLOOD ADD-ON [facility] [address] [place] [address], [place] DTL [facility] [address] [place] [address] * Connective Tissue Diseases [place] (01/28/2024 10:16 AM CDT) [facility] Antinuclear Ab, S 0.1 <=1.0 (Negative ) U 01/28/2024 7:56 PM CDT [facility] Comment: ----ADDITIONAL INFORMATION---- Method: Enzyme-linked immunoassay using HEp-2 nuclear extract supplemented with purified antigens. Cyclic Citrullinated Peptide Ab, S <15.6 <20.0 (Negative ) U 01/28/2024 6:40 PM CDT [facility] Interpretation SEE COMMENT 7:56 PM CDT [facility] Comment: Tests for antibodies to dsDNA and DERIC antigens are not performed automatically unless the TERRI result is > or = 3.0 U. ??Studies performed at [facility] indicate that positive TERRI results <3.0 U are rarely accompanied by positive second order tests. Blood (Blood, Venous) 01/28/2024 10:16 AM CDT 01/28/2024 1:59 PM CDT Rod Perales M.D. LAB BLOOD ADD-ON [facility] [address] [place] [address] [facility] [address] [place] [address] * (ABNORMAL) Comprehensive Metabolic Panel (01/28/2024 10:16 AM CDT) [facility] Potassium, S 4.4 3.6 - 5.2 mmol/L [...] CDT Rod Perales M.D. LAB BLOOD ADD-ON [facility] [address] [place] [address], [facility] DTL [facility] [address] [place] [address] * (ABNORMAL) CBC with Differential, Blood (01/28/2024 [...] CDT Rod Perales M.D. LAB BLOOD ADD-ON [facility] [address] [place] [address], [facility] DTL [facility] [address] [place] [address] [facility] [address] [place] [address] * (ABNORMAL) 25-Hydroxyvitamin D2 and D3 (01/28/2024 10:16 AM CDT) 25-Hydroxy D2 <4.0 ng/mL 01/30/2024 9:01 AM CDT [facility] 25-Hydroxy D3 18 ng/mL 01/30/2024 9:01 AM CDT [facility] 25-Hydroxy D Total 18(L) ng/mL 2023 9:01 AM CDT [facility] Comment: Interpretation: 10-19 ng/mL (mild to moderate deficiency) ----REFERENCE VALUE---- 25-HYDROXY D TOTAL (D2+D3) Optimum levels in the healthy population are 20-50. ----ADDITIONAL INFORMATION---- This test was developed and its performance characteristics determined by [facility] in a manner consistent with CLIA requirements. This test has not been cleared or approved by the U.S. Food and Drug Administration. Blood (Blood, Venous) 01/28/2024 10:16 AM CDT 01/28/2024 1:32 PM CDT Rod Perales M.D. LAB BLOOD ADD-ON [facility] [address] [place] [address] [facility] [address] [place] [address] [place] [address] documented in this encounter Visit Diagnoses Diagnosis Osteoporosis- Primary Pain Back Fracture Vertebra Compression Thoracic Closed Initial (HCC) documented in this encounter Additional Health Concerns Assessment Noted Time PHQ-9 Depression Total Score: 6 08/15/20 22 2:06 AM INLETTER documented as of this encounter Care Teams Industrial Relations Commissioner Relationship Specialty Start Date End Date Erinn Reina M.D. [address] [place] [phone] PCP - General Family Medicine 09/08/21 documented as of this encounter
--- OUTSIDE RECORDS SUMMARY | 2024-03-13 22:12 | XMS_ITS | Encounter Summary ---
Author Organization [facility] Address [address] [place] [address] Care Team Providers Care Record Press Tender Name Role Phone Erinn Reina M.D. Primary Care Provider [phone] Reason for Visit * Physical Therapy (Routine) - Canceled Specialty Diagnoses / Procedures Referred By Osorio guevara Referred To Contact Diagnoses Fibromyalgia Pain Low Back Unspecified Procedures PT Ongoing treatment Tony Schwartz P.AAnn-Marie-CAnn-Marie [address] [place] [address] [facility] Region Referral ID Status Reason Start Date Expiration Date V isits Requested Visits Authorized [id number] Canceled 06/07/2023 06/06/2024 99 99 Encounter Details Date Type Department Care Team (Latest Contact Info) Description 12/26/2023 10:45 AM CDT Clinical Support Department of Physical Medicine and Rehabilitation in [place], [place] [address] [place] [phone] Tony Schwartz, PAnn-MarieA.-CAnn-Marie [address] [place] [phone] Elana Winters, P.TAnn-Marie [address] [place] [phone] Fibromyalgia (Primary Dx); Pain Low Back Unspecified [...] How often do you attend chur or anabaptist services? 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 Patient verbalizes she remembers the exercises. [email or web address]: [email or web address]: [email or web address] Patient reports fair HEP [...] Department of Physical Medicine and Rehabilitation in [place], [place] [address] [place] [address] Rod Collins M.D. [address] [place] [address] Elana Winters, P.T. [address] [place] [phone] 03/24/2024 12:45 PM CDT Clinical Support Department of Physical Medicine and Rehabilitation in [place], [place] [address] [place] [address] Rod Collins M.D. [address] [place] [phone] Elana Winters P, P.T. [address] [place] [phone] 03/31/2024 12:45 PM CDT Clinical Support Department of Physical Medicine and Rehabilitation in [place] [address] [place] [address] Rod Collins M.D. [address] [place] [phone] Elana Winters P, P.T. [address] [place] [phone] 04/07/2024 12:45 PM CDT Clinical Support Department of Physical Medicine and Rehabilitation in [place], [place] [address] [place] [address] Rod Collins M.D. [address] [place] [phone] Elana Winters P, P.T. [address] [place] [phone] 04/14/2024 12:45 PM CDT Clinical Support Department of Physical Medicine and Rehabilitation in [place], [place] [address] [place] [address] Rod Collins M.D. [address] [place] [phone] Elana Winters, P.T. [address] [place] [address] 04/21/2024 12:45 PM CDT Clinical Support Department of Physical Medicine and Rehabilitation in [place], [place] [address] [place] [address] Rod Collins M.D. [address] [place] [phone] Elana Winters, P.T. [address] [place] [address] 04/28/2024 12:45 PM CDT Clinical Support Department of Physical Medicine and Rehabilitation in [place], [place] [address] [place] [address] Rod Collins M.D. [address] [place] [address] Elana Winters, P.T. [address] [place] [phone] documented as of this encounter Visit Diagnoses Diagnosis Fibromyalgia- Primary Pain Low Back Unspecified documented in this encounter Additional Health Concerns Assessment Noted Time PHQ-9 Depression Total Score: 6 08/15/20 22 2:06 AM BUSINESS MANAGER [employer] documented as of this encounter Care Teams Record Press Tender Relationship Specialty Start Date End Date Erinn Reina M.D. [address] [place] [address] [place] [address] PCP - General Family Medicine 09/08/21 documented as of this encounter
--- OUTSIDE RECORDS SUMMARY | 2024-03-13 22:12 | XMS_ITS | Encounter Summary ---
Author Organization [facility] Address [address] [place] [address] Care Team Providers Care Senior Scientist Name Role Phone Erinn Reina M.D. Primary Care Provider Encounter Details Date Type Department Care Team (Late st Contact Info) Description 11/15/2023 Clinical Communication [facility] in [place], [place] [address] [place] [address] Arjun Umana M.D. [address] [place] [address] Social History Tobacco Use Types Packs/Day Years [...] often do you attend chur ch or muslim services? 1 to 4 times per year 03/05/2022 Do you belong to any clubs o r organizations such as taoist groups, unions, fraternal or athletic groups, or [...] Answer Date Recorded PHQ-2 Score 1 08/15/2022 [facility] of Occupat ional [facility] - Occupational Stress Questionnaire [...] your living situation today? I have a [facility] place to live 04/10/2023 Education Answer Date Recorded What is the highest level of school you have completed or the highest degree you have received? 12th grade 04/14/2019 Sex and Gender Information Value Date Recorded Sex Assigned at Female 10/24/2023 10:51 PM INTERNAL GRINDING MACHINE OPERATOR Gender Identity Female 02/10/2019 11:51 AM CDT Sexual Orientation Straight 02/10/2019 11 :51 AM CDT documented as of this encounter Plan of Treatment Upcoming Encounters Date Type Department Care Team (Late st Contact Info) Description 03/17/2024 9:15 AM CDT Clinical Support Department of Physical Medicine and Rehabilitation in [place], [place] [address] [place] [address] Rod Collins M.D. [address] [place] [address] Elana Winters, P.T. [address] [place] [address] 03/24/2024 12:45 PM CDT Clinical Support Department of Physical Medicine and Rehabilitation in [place], [place] [address] [place] [address] Rod Collins M.D. [address] [place] [phone] Elana Winters P, P.T. [address] [place] [address] 03/31/2024 12:45 PM CDT Clinical Support Department of Physical Medicine and Rehabilitation in [place], [place] [address] [place] [address] Rod Collins M.D. [address] [place] [phone] Elana Winters, P.T. [address] [place] [phone] 04/07/2024 12:45 PM CDT Clinical Support Department of Physical Medicine and Rehabilitation in [place], [place] [address] [place] [address] Rod Collins M.D. [address] [place] [phone] Elana Winters P, P.T. [address] [place] [phone] 04/14/2024 12:45 PM CDT Clinical Support Department of Physical Medicine and Rehabilitation in [place], [place] [address] [place] [address] Rod Collins M.D. [address] [place] [phone] Elana Winters, P.T. [facility] [place] [address] 04/21/2024 12:45 PM CDT Clinical Support Department of Physical Medicine and Rehabilitation in [place], [place] [address] [place] [address] Rod Collins M.D. [address] [place] [phone] Elana Winters P, P.T. [address] [place] [address] 04/28/2024 12:45 PM CDT Clinical Support Department of Physical Medicine and Rehabilitation in [place], [place] [address] [place] [address] Rod Collins M.D. [address] [place] [phone] Elana Winters P, P.T. [address] [place] [phone] documented as of this encounter Visit Diagnoses Diagnosis Chronic Obstructive Pulmonary Disease Moderate (HCC)- Primary documented in this encounter Additional Health Concerns Assessment Noted Time PHQ-9 Depression Total Score: 6 08/15/20 22 2:06 AM INTERNAL GRINDING MACHINE OPERATOR documented as of this encounter Care Teams Senior Scientist Relationship Specialty Start Date End Date Erinn Reina M.D. [address] [place] [address] [place] [address] PCP - General Family Medicine 09/08/21 documented as of this encounter
--- OUTSIDE RECORDS SUMMARY | 2024-03-13 22:12 | XMS_ITS | Encounter Summary ---
Author Organization [facility] Address [address] [place] [address] Care Team Providers Care Hot Worker Name Role Phone Erinn Reina M.D. Primary Care Provider [phone] Reason for Referral * Outpatient (Routine) - Authorized Specialty Diagnoses / Procedures Referred By Osorio guevara Referred To Contact Diagnoses Chronic Obstructive Pulmonary Disease Moderate (HCC) Seun Bey M.D. [address] [place] [address] Referral ID Status Reason Start Date Expiration Date V isits Requested Visits Authorized [id number] Authorized 12/05/2023 06/05/2025 1 1 MATOR PROJECT MANAGER Encounter Details Date Type Department Care Team (Late st Contact Info) Description 12/05/2023 Clinical Communication Division of Pulmonary Medicine in [place], [place] [address] [place] [phone] Seun Bey M.D. [address] [place] [phone] Social History Tobacco Use Types Packs/Day Years [...] declined 03/05/2022 How often do you attend [facility] or quaker services? 1 to 4 times per year 03/05/2022 Do you belong to any clubs o r organizations such as congregation groups, unions, fraternal or athletic groups, or [...] Date Recorded PHQ-2 Score 1 08/15/2022 [facility] of Occupat ional Health - [...] your living situation today? I have a [facility] place to live 04/10/2023 Education Answer Date Recorded What is the highest level of school you have completed or the highest degree you have received? 12th grade 04/14/2019 Sex and Gender Information Value Date Recorded Sex Assigned at Female 10/24/2023 10:51 PM ESTIMATOR PROJECT MANAGER Gender Identity Female 02/10/2019 11:51 AM CDT Sexual Orientation Straight 02/10/2019 11 :51 AM CDT documented as of this encounter Plan of Treatment Upcoming Encounters Date Type Department Care Team (Late st Contact Info) Description 03/17/2024 9:15 AM CDT Clinical Support Department of Physical Medicine and Rehabilitation in [place], [place] [address] [place] [address] Rod Collins M.D. [address] [place] [phone] Elana Winters P, P.T. [address] [place] [address] 03/24/2024 12:45 PM CDT Clinical Support Department of Physical Medicine and Rehabilitation in [place], [place] [address] [place] [address] Rod Collins M.D. [address] [place] [phone] Elana Winters, P.T. [address] [place] [phone] 03/31/2024 12:45 PM CDT Clinical Support Department of Physical Medicine and Rehabilitation in [place], [place] [address] [place] [address] Rod Collins M.D. [address] [place] [phone] Elana Winters P, P.T. [address] [place] [phone] 04/07/2024 12:45 PM CDT Clinical Support Department of Physical Medicine and Rehabilitation in [place], [place] [address] [place] [address] Rod Collins M.D. [address] [place] [phone] Elana Winters, P.T. [address] [place] [phone] 04/14/2024 12:45 PM CDT Clinical Support Department of Physical Medicine and Rehabilitation in [place], [place] [address] [place] [address] Rod Collins M.D. [address] [place] [phone] Elana Winters P, P.T. [address] [place] [phone] 04/21/2024 12:45 PM CDT Clinical Support Department of Physical Medicine and Rehabilitation in [place], [place] [address] [place] [address] Rod Collins M.D. [address] [place] [phone] Elana Winters P, P.T. [address] [place] [phone] 04/28/2024 12:45 PM CDT Clinical Support Department of Physical Medicine and Rehabilitation in [place], [place] [address] [place] [address] Rod Collins M.D. [address] [place] [phone] Elana Winters P, P.T. [address] [place] [phone] documented as of this encounter Visit Diagnoses Diagnosis Chronic Obstructive Pulmonary Disease Moderate (HCC)- Primary documented in this encounter Additional Health Concerns Assessment Noted Time PHQ-9 Depression Total Score: 6 08/15/20 22 2:06 AM ESTIMATOR PROJECT MANAGER documented as of this encounter Care Teams Hot Worker Relationship Specialty Start Date End Date Erinn Reina M.D. [address] [place] [address] [place] [address] PCP - General Family Medicine 09/08/21 documented as of this encounter
--- OUTSIDE RECORDS SUMMARY | 2024-03-13 22:12 | XMS_ITS | Encounter Summary ---
Author Organization [facility] Address [address] [place] [address] Care Team Providers Care Fourdrinier Operator Name Role Phone Erinn Reina M.D. Primary Care Provider [phone] Encounter Details Date Type Department Care Team (Latest Contact Info) Description 01/15/2024 11:30 AM CDT - 01/15/2024 11:59 PM CDT Hospital Encounter Department of Laboratory Medicine in [place], [place] [address] [place] [address] Vitor Calle M.D. [address] [place] [phone] Dyspnea Multifactorial; Anemia Iron Deficiency Discharge Disposition: [...] How often do you attend chur or yarsani services? 1 to 4 times per year 03/05/2022 Do you belong to any clubs o r organizations such as latter day groups, unions, fraternal or athletic groups, or [...] your living situation today? I have a [facility] place to live 04/10/2023 Education Answer Date Recorded What is the highest level of school you have completed or the highest degree you have received? 12th grade 04/14/2019 Sex and Gender Information Value Date Recorded Sex Assigned at Female 10/24/2023 10:51 PM BUSINESS APPLICATIONS DEVELOPER Gender Identity Female 02/10/2019 11:51 AM [...] 2023 fluticasone-umeclidiniu m-vilanterol (Trelegy Ellipta) 100-62.5-25 mcg/actuation inhalerIndications:Air Purifier Servicer padmini Obstructive Pulmonary Disease Moderate (HCC) Inhale [...] mouth daily. 01/19/2023 Ventolin HFA 90 mcg/actuation inhalerIndications:Air Purifier Servicer padimni Obstructive Pulmonary Disease (HCC),Dyspnea Multifactorial Inhale 2 puffs every 4 (four) hours as needed for wheezing or shortness of breath. 18 g 11 11/08/2023 11/07/2024 documented as of this encounter Plan of Treatment Upcoming Encounters Date Type Department Care Team (Late st Contact Info) Description 03/17/2024 9:15 AM CDT Clinical Support Department of Physical Medicine and Rehabilitation in [place], [place] [address] [place] [phone] Rod Collins M.D. [address] [place] [address] Elana Winters P, P.T. [address] [place] [phone] 03/24/2024 12:45 PM CDT Clinical Support Department of Physical Medicine and Rehabilitation in [place], [place] [address] [place] [address] Rod Collins M.D. [address] [place] [phone] Elana Winters, P.T. [address] [place] [phone] 03/31/2024 12:45 PM CDT Clinical Support Department of Physical Medicine and Rehabilitation in [place], [place] [address] [place] [address] Rod Collins M.D. [address] [place] [address] Elana Winters, P.T. [address] [place] [phone] 04/07/2024 12:45 PM CDT Clinical Support Department of Physical Medicine and Rehabilitation in [place], [place] [address] [place] [address] Rod Collins M.D. [address] [place] [address] Elana Winters, P.T. [address] [place] [phone] 04/14/2024 12:45 PM CDT Clinical Support Department of Physical Medicine and Rehabilitation in [place], [place] [address] [place] [address] Rod Collins M.D. [address] [place] [address] Elana Winters P, P.T. [address] [facility] [address] 04/21/2024 12:45 PM CDT Clinical Support Department of Physical Medicine and Rehabilitation in [place], [place] [address] [place] [address] Rod Collins M.D. [address] [place] [address] Elana Winters, P.T. [address] [place] [phone] 04/28/2024 12:45 PM CDT Clinical Support Department of Physical Medicine and Rehabilitation in [place], [place] [address] [address] Rod Collins M.D. [address] [place] [phone] Elana Winters, P.T. [address] [place] [phone] documented as of this encounter Procedures Procedure [...] CDT Tony Schwartz P.A.-C. LAB BLOOD ADD-ON [facility] [address] [place] [address], [facility]UST [facility] [address] [place] [address] * (ABNORMAL) Ferritin (01/15/2024 11:41 AM CDT) Ferritin, S 347(H) 11 - 328 mcg/L 01/15/2024 2:25 PM CDT OWAT Comment: Biotin has been identified by the hydrochloric manufacturing supervisor as a potential interfering substance. Higher concentrations of biotin may be found in multivitamins, hair/nail supplements, and workout supplements. If the result does not match clinical observations, repeat testing after patient refrains from the use of supplements for at least 12 hours. Blood (Blood, Venous) 01/15/2024 11:41 AM CDT 01/15/2024 1:31 PM CDT Tony Schwartz P.A.-C. LAB BLOOD ADD-ON [facility] [address] [place] [address], [place] [address] [facility] [place] [address] [place] [address] * (ABNORMAL) CBC with Differential, Blood (01/15/2024 11:41 AM CDT) Pathologist [facility] Hemoglobin 12.3 11.6 - 15.0 g/dL 01/15/2024 [...] CDT Tony Schwartz P.A.-C. LAB BLOOD ADD-ON [facility] [address] [place] [address], [place] [id number] [facility] [place] [address] [place] [address] * NT-Pro B-Type Natriuretic Peptide (BNP) (01/15/2024 [...] M.D. LAB BLOOD ADD-ON Performing Organization Address City/[facility]/ZIP Co de Phone Number [facility] [address] [place] [address], [place] [address] [facility] [place] [address] [place] [address] * Creatinine with Estimated GFR (01/15/2024 11:41 AM CDT) Creatinine 0.72 0.59 - 1.04 mg/dL 01/15/2024 2:15 PM CDT OWAT Estimated GFR (eGFR) 86 >=60 mL/min/BSA 01/15/2024 2:15 PM CDT OWAT Comment: Estimated GFR calculated using the 2020 CKD_EPI creatinine equation. Blood (Blood, Venous) 01/15/2024 11:41 AM CDT 01/15/2024 1:31 PM CDT Vitor Calle M.D. LAB BLOOD ADD-ON [facility] [address] [place] [address], [facility] [facility] [place] [address] [place] [address] * Potassium (01/15/2024 11:41 AM CDT) Potassium, P 4.5 3.6 - 5.2 mmol/L 01/15/2024 2:15 PM CDT OWAT Blood (Blood, Venous) 01/15/2024 11:41 AM CDT 01/15/2024 1:31 PM CDT Vitor Calle M.D. LAB BLOOD ADD-ON Performing Organization Address City/[facility]/ZIP Co de Phone Number [facility] [address] [place] [address], [place] AT [facility] [place] [address] [place] [address] * Sodium (01/15/2024 11:41 AM CDT) Sodium, P 139 135 - 145 mmol/L 01/15/2024 2:15 PM CDT OWAT Blood (Blood, Venous) 01/15/2024 11:41 AM CDT 01/15/2024 1:31 PM CDT Vitor Calle M.D. LAB BLOOD ADD-ON [facility] [address] [place] [address], [place] [address] [facility] [place] [address] [place] [address] documented in this encounter Visit Diagnoses Diagnosis Dyspnea Multifactorial Anemia Iron Deficiency documented in this encounter Additional Health Concerns Assessment Noted Time PHQ-9 Depression Total Score: 6 08/15/20 22 2:06 AM BUSINESS APPLICATIONS DEVELOPER documented as of this encounter Care Teams Fourdrinier Operator Relationship Specialty Start Date End Date Erinn Reina M.D. [address] [place] [phone] PCP - General Family Medicine 09/08/21 documented as of this encounter
--- OUTSIDE RECORDS SUMMARY | 2024-03-13 22:12 | XMS_ITS | Encounter Summary ---
Author Organization [facility] Address [address] [place] [address] Care Team Providers Care K [employer] School Professional Name Role Phone Erinn Reina M.D. Primary Care Provider Reason for Referral * Cardiovascular-Diagnostic (Routine) - Closed Specialty Diagnoses / Procedures Referred By Contac t Referred To Contact Diagnoses Dilated Aortic Root (HCC) Dyspnea Multifactorial Procedures Echo Transthoracic (TTE) Vitor Calle M.D. [address] [place] [address] [facility] Referral ID Status Reason Start Date Expiration Date Visits Re quested Visits Authorized [id number] Closed 10/09/2023 10/08/2024 1 1 Reason for Visit * Cardiovascular-Diagnostic (Routine) - Closed Specialty Diagnoses / Procedures Referred By Osorio guevara Referred To Contact Diagnoses Dilated Aortic Root (HCC) Dyspnea Multifactorial Procedures Echo Transthoracic (TTE) Vitor Calle M.D. [address] [place] [address] [facility] Region Referral ID Status Reason Start Date Expiration Date Visits Re quested Visits Authorized [id number] Closed 10/09/2023 10/08/2024 1 1 Encounter Details Date Type Department Care Team (Latest Contact Info) Description 01/01/2024 1:14 PM CDT - 01/01/2024 11:59 PM CDT Hospital Encounter Department of Cardiovascular Diseases in [place], [place] [address] [facility] [place] [phone] Vitor Calle M.D. [address] [facility] [place] [phone] Dilated Aortic Root (HCC); Dyspnea Multifactorial Discharge [...] often do you attend chur ch or yazidism services? 1 to 4 times per year [...] Answer Date Recorded PHQ-2 Score 1 08/15/2022 [facility] of Occupat ional Health - Occupational Stress [...] Sex Assigned at Female 10/24/2023 10:51 PM METALLOGRAPHIC TECHNICIAN Gender Identity Female 02/10/2019 11:51 AM CDT [...] 2023 fluticasone-umeclidiniu m-vilanterol (Trelegy Ellipta) 100-62.5-25 mcg/actuation inhalerIndications:Electrical Equipment Technician padmini Obstructive Pulmonary Disease Moderate (HCC) [...] mouth daily. 01/19/2023 Ventolin HFA 90 mcg/actuation inhalerIndications:Electrical Equipment Technician padmini Obstructive Pulmonary Disease (HCC),Dyspnea Multifactorial Inhale 2 puffs every 4 (four) hours as needed for wheezing or shortness of breath. 18 g 11 11/08/2023 11/07/2024 documented as of this encounter Plan of Treatment Upcoming Encounters Date Type Department Care Team (Late st Contact Info) Description 03/17/2024 9:15 AM CDT Clinical Support Department of Physical Medicine and Rehabilitation in [place], [place] [address] [place] [address] Rod Collins M.D. [address] [place] [phone] Elana Winters P, P.T. [address] [place] [phone] 03/24/2024 12:45 PM CDT Clinical Support Department of Physical Medicine and Rehabilitation in [place], [place] [address] [place] [address] Rod Collins M.D. [address] [place] [phone] Elana Winters P, P.T. [address] [place] [phone] 03/31/2024 12:45 PM CDT Clinical Support Department of Physical Medicine and Rehabilitation in [place], [place] [address] [place] [address] Rod Collins M.D. [address] [place] [phone] Elana Winters P, P.T. [address] [place] [phone] 04/07/2024 12:45 PM CDT Clinical Support Department of Physical Medicine and Rehabilitation in [place], [place] [address] [place] [address] Rod Collins M.D. [address] [place] [phone] Elana Winters, P.T. [address] [place] [phone] 04/14/2024 12:45 PM CDT Clinical Support Department of Physical Medicine and Rehabilitation in [place], [place] [address] [place] [address] Rod Collins M.D. [address] [place] [phone] Elana Winters, P.T. [address] [place] [phone] 04/21/2024 12:45 PM CDT Clinical Support Department of Physical Medicine and Rehabilitation in [place], [place] [address] [place] [address] Rod Collins M.D. [address] [place] [phone] Elana Winters, P.T. [address] [place] [phone] 04/28/2024 12:45 PM CDT Clinical Support Department of Physical Medicine and Rehabilitation in [place], [place] [address] [place] [address] Rod Collins M.D. [address] [place] [address] Elana Winters, P.T. [address] [place] [phone] documented as of this encounter Procedures Procedure [...] Total Score: 6 08/15/20 22 2:06 AM METALLOGRAPHIC TECHNICIAN documented as of this encounter Care Teams K [employer] Professional Relationship Specialty Start Date End Date Erinn Reina M.D. [address] [place] [phone] PCP - General Family Medicine 09/08/21 documented as of this encounter
[2024-03-13 22:20] LABS: Basophils Absolute Auto 0.03 K/uL (0.00-0.30); Basophils Percent Auto 0.4 % (0.0-3.0); Eosinophils Absolute Auto 0.21 K/uL (0.00-0.50); Eosinophils Percent Auto 2.6 % (0.0-7.0); Hematocrit 36.3 % (33.0-51.0); Hemoglobin* 11.2 gm/dL (12.0-16.0); Immature Granulocytes Abs Auto 0.02 K/uL (0.00-0.30); Immature Granulocytes Pct Auto 0.2 %; Mean Corpuscular HGB Conc 31 gm/dL (32-36); Mean Corpuscular Hemoglobin 30 pg (26-34); Mean Corpuscular Volume 96 fL (80-100); Monocytes Percent Auto 8.9 % (0.0-11.0); Neutrophils Absolute Auto 5.81 K/uL (1.7-7.0); Neutrophils Percent Auto 70.9 % (42.0-72.0); Platelet Count* 215 K/uL (140-440); RDW Coefficient of Variation % 16.3 % (11.5-15.5); Red Blood Count 3.79 m/uL (4.00-5.20); White Blood Count* 8.19 K/uL (4.50-11.00)
[2024-03-13] MEDS: MORPHINE 4 MG/ML INJ IVP (22:20)
[2024-03-13 22:25] LABS: Slide Review Reflex No
[2024-03-13 22:33] LABS: Chloride* 99 mmol/L (96-114); Potassium* 4.4 mmol/L (3.6-5.1); Sodium* 136 mmol/L (135-149)
[2024-03-13 22:36] LABS: Anion Gap 5 mEq/L (7-15); Carbon Dioxide* 32 mmol/L (20-32); Creatinine* 0.7 mg/dL (0.5-1.5); Est. Creatinine Clearance* 31.03; Estimated Glomerular Filt Rate 88 ml/min
[2024-03-13 22:37] LABS: Ethanol* 0.03 % (0.01-0.03)
[2024-03-13 22:37] LABS: Blood Urea Nitrogen* 16 mg/dL (7-30); Calcium* 9.1 mg/dL (8.4-10.6); Glucose* 91 mg/dL (60-115)
[2024-03-13 22:41] VITALS: BP 177/115; PULSE 97; RESP 18; O2SAT 98
[2024-03-13] MEDS: 0.9 % SODIUM CHLORIDE 500 ML 500 ML IV (22:45)
[2024-03-13 23:40] VITALS: PULSE 101; O2SAT 94
[2024-03-14] VITALS (28 sets, daily range): BP systolic 106–177; BP diastolic 78–122; PULSE 68–104; RESP 12–24; TEMP 36.3–37.5; O2SAT 90–100; BMI 21.3
[2024-03-14] MEDS: HYDROmorphone 0.5 mg/0.5 ml inj IVP ×3 (00:24→09:32)
--- NOTE | 2024-03-14 01:42 | W.PM.TELEH&P ---
Telehealth- H&P: HPI History of Present Illness Date Seen: 03/14/24 Chief complaint: Fall with Resulting Hip Fracture Narrative: Marty Rivera is seen as an Interactive Telehealth visit. Marty Rivera is a 79 year old female who presented to the emergency room after falling onto her right side and suffering injury. Marty gives the history that she was outside today and her phone went . She went inside to plug in her phone and went to sit down on a chair and missed the chair and fell onto her right side. She immediately experienced pain in her right side and called her son. Eventually the ambulance was called and she was brought into the emergency room for further evaluation and treatment. In the emergency room she was found to have a right femoral neck fracture. With the need for surgical procedure, she is currently being admitted to the medical service for further evaluation and treatment. At the time I am seeing Marilee, she does confirm the above history. She denies any recent chest pain but does have chronic shortness of breath for which she is on chronic home oxygen. She states that she was in the ER recently with a COPD exacerbation but has been fine since that time. She denies any abdominal pain. She denies any lightheadedness or dizziness. She has had anesthesia in the past and denies any problems with anesthesia. She states her pain is under adequate control at the time I am seeing her and denies any other new complaints or problems currently. Review of Systems Status of ROS: Reports: 10 or more systems reviewed and unremarkable except as noted in History and below [facility] Medical History Normal cardiac stress test (~01/2023) ALLIE (obstructive sleep apnea) ?G47.33 - Obstructive sleep apnea (adult) (pediatric) (ICD-10) Iron deficiency anemia (2019) ?D50.9 - Iron deficiency anemia, unspecified (ICD-10) Subarachnoid hemorrhage following injury (10/2018) ?S06.6XAA - Traumatic subarachnoid hemorrhage with loss of consciousness status unknown, initial encounter (ICD-10) Ascending aorta dilation ?I77.810 - Thoracic aortic ectasia (ICD-10) Dyspnea on exertion ?R06.09 - Other forms of dyspnea (ICD-10) B12 deficiency ?E53.8 - Deficiency of other specified B group vitamins (ICD-10) TIA (transient ischemic attack) (~2018) ?G45.9 - Transient cerebral ischemic attack, unspecified (ICD-10) Pulmonary hypertension ?I27.20 - Pulmonary hypertension, unspecified (ICD-10) Hearing loss of both ears ?H91.93 - Unspecified hearing loss, bilateral (ICD-10) IBS (irritable bowel syndrome) ?K58.9 - Irritable bowel syndrome without diarrhea (ICD-10) Macular degeneration ?H35.30 - Unspecified macular degeneration (ICD-10) Weakness generalized ?R53.1 - Weakness (ICD-10) Thyroid nodule ?E04.1 - Nontoxic single thyroid nodule (ICD-10) Osteopenia ?M85.80 - Other specified disorders of bone density and structure, unspecified site (ICD-10) Depression ?F32.A - Depression, unspecified (ICD-10) Diastolic heart failure (10/2022) ?I50.30 - Unspecified diastolic (congestive) heart failure (ICD-10) Essential hypertension ?I10 - Essential (primary) hypertension (ICD-10) Cigarette nicotine dependence ?F17.210 - Nicotine dependence, cigarettes, uncomplicated (ICD-10) NYHA class 3 heart failure with preserved ejection fraction ?I50.30 - Unspecified diastolic (congestive) heart failure (ICD-10) Fibromyalgia ?M79.7 - Fibromyalgia (ICD-10) Chronic back pain ?M54.9 - Dorsalgia, unspecified (ICD-10) ?G89.29 - Other chronic pain (ICD-10) COPD (chronic obstructive pulmonary disease) ?J44.9 - Chronic obstructive pulmonary disease, unspecified (ICD-10) Acute on chronic respiratory failure with hypoxia and hypercapnia (12/20/22) ?J96.21 - Acute and chronic respiratory failure with hypoxia (ICD-10) ?J96.22 - Acute and chronic respiratory failure with hypercapnia (ICD-10) Surgical History History of colonoscopy with polypectomy ?Z98.890 - Other specified postprocedural states (ICD-10) ?Z86.010 - Personal history of colonic polyps (ICD-10) 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 Long time and current smoker, not ready to quit Smoking Status: Current every day smoker What tobacco products do you use: cigarettes Smoking packs per day: 0.5 Smoking cigarettes per day: 10.0 Do you use any of these nicotine containing products: None Second hand tobacco smoke exposure: No How often do you have a drink containing alcohol: 4 or more times a week Alcohol type: wine Alcohol type details: 1 glass of wine a night How many standard drinks containing alcohol do you have on a typical day: 1 or 2 How often do you have six or more drinks on one occasion: Never AUDIT-C Alcohol total score: 4 Non-prescribed substance use: denies use Caffeine: No Little interest or pleasure in doing things: more than half the days Feeling down, depressed, or hopeless: more than half the days service: No Meds Home Medications and Allergies Home Medications ?Medication ?Instructions ?Recorded ?Confirmed ?Type albuterol sulfate 90 mcg/actuation 2 puff inhalation Q4H PRN 04/24/22 12/24/23 History aerosol inhaler (Ventolin HFA) cyanocobalamin (vitamin B-12) 1,000 mcg IM Q30D 12/18/22 12/24/23 History 1,000 mcg/mL injection kit fexofenadine-pseudoephedrine ER 1 tab PO DAILY PRN 12/18/22 12/24/23 History 180 mg-240 mg tablet,ext.release 24 hr (24HR Allergy-Congestion Relief) fluticasone propionate 50 2 spray intranasal DAILY PRN 12/18/22 12/24/23 History mcg/actuation nasal spray,suspension ipratropium 0.5 mg-albuterol 3 mg 3 ml inhalation QID PRN 12/18/22 12/24/23 History (2.5 mg base)/3 mL nebulization soln Trelegy PO 11/28/23 History acetaminophen 500 mg capsule 1,000 mg PO Q6H PRN 11/28/23 12/24/23 History aspirin 81 mg tablet,delayed 81 mg PO QDAY 11/28/23 12/24/23 History release rosuvastatin 10 mg tablet 10 mg PO QDAY 11/28/23 12/24/23 History torsemide 20 mg tablet 20 mg PO QDAY 11/28/23 03/06/24 History spironolactone 25 mg tablet PO 03/06/24 History Allergies Allergy/AdvReac Type Severity Reaction Status Date / Time erythromycin base Allergy Intermediate dry heaves Verified 03/06/24 10:01 Penicillins Allergy Intermediate Shortness Verified 03/06/24 10:01 of Breath & Fainting tetanus toxoid, adsorbed Allergy Intermediate Dizziness Verified 03/06/24 10:01 & Fainting codeine AdvReac Mild Rash Verified 03/06/24 10:01 alendronate sodium AdvReac Unknown Gastrointestinal Verified 03/06/24 10:01 [From Fosamax] Upset Exam Narrative Exam Narrative: Physical Exam GENERAL: vital signs reviewed, well developed and nourished, in no distress HEENT: pupils are equal round and reactive to light, extraocular movements are grossly within normal limits and oral mucosa is moist. NECK: Supple without lymphadenopathy or thyromegaly according to nursing staff examination observation HEART: Regular rate and rhythm with a 3/6 systolic ejection murmur best heard over aortic area LUNGS: Clear to auscultation bilaterally with decreased breath sounds at the bases, otherwise good air movement throughout ABDOMEN: Observation from nurse assisted exam, abdomen appears soft, nontender, and nondistended with Positive bowel sounds noted. EXTREMITIES: Strength and sensation is observed to be grossly within normal limits in the upper and lower extremities. No focal strength deficit is observed. Trace edema is noted bilaterally right greater than left. SKIN: Observed warm and dry with color normal NEURO: Alert, awake and oriented ?3. Answers all questions appropriately. No focal neuro deficits are noted. PSYCH: Affect normal Const Vital Signs, click to edit/add: Vital Signs - 24 hr 03/13/24 21:54 03/13/24 22:09 03/13/24 22:41 Temperature 99.0 F Pulse Rate [Pulse Oximeter] 79 97 Respiratory Rate 18 18 Blood Pressure [Right Upper Arm] 186/112 H 177/115 H Pulse Oximetry 99 99 98 Oxygen Delivery Method Nasal Cannula Nasal Cannula Nasal Cannula Oxygen Flow Rate 2 2 2 03/13/24 23:40 Temperature Pulse Rate [Pulse Oximeter] 101 H Respiratory Rate Blood Pressure [Right Upper Arm] Pulse Oximetry 94 Oxygen Delivery Method Nasal Cannula Oxygen Flow Rate 2 Documenting provider has reviewed patient's vital signs: yes Hospitalist - H&P: Result Labs Labs: Short CBC 03/13/24 Range/Units 22:12 WBC 8.19 (4.50-11.00) K/uL Hgb 11.2 L (12.0-16.0) gm/dL Hct 36.3 (33.0-51.0) % Plt Count 215 (140-440) K/uL BMP 03/13/24 22:12 Sodium 136 Potassium 4.4 Chloride 99 Carbon Dioxide 32 BUN 16 Creatinine 0.7 Glucose 91 Calcium 9.1 ECG Prior ECG tracings: available for review Imaging Chest x-ray: Attestation: I have reviewed the pertinent imaging results. Assessment and Plan Assessment and plan (1) Fall: Status: Inactive (2) Closed hip fracture: Status: Acute Plan Assessment: 1. Accidental fall 2. Right femoral neck fracture from #1 above 3. Oxygen and steroid dependent COPD currently on baseline of2 L of nasal cannula oxygen 4. Hypertension 5. Coronary artery disease with history of chronic diastolic congestive heart failure?currently euvolemic 6. Nicotine dependence 7. Pulmonary hypertension 8. Ascending aortic dilatation 9. Obstructive sleep apnea 10. Chronic minor anemia with no sign of acute active bleeding currently at baseline Plan: At this time Marty will be admitted to the medical service. Her EKG does not show any acute changes and her chest x-ray does not show any signs or symptoms of acute infiltrate or respiratory compromise. She is currently utilizing her baseline oxygen supplementation and we will need to watch her respiratory status closely with her history. She is on chronic prednisone and may need to stress dose her steroids just prior to and after her surgical procedure if required. I will consult orthopedic surgery for further evaluation and treatment of her right hip fracture. She is at higher risk with her current severe COPD, but I do believe she is currently optimally managed for surgery if needed. I will reinitiate her COPD and blood pressure medications. I have discussed this plan with Marty and she is agreeable to proceed. Will continue to follow closely from medical standpoint and will await orthopedic surgery evaluation. I did discuss CODE STATUS with Marty and she does wish to be DNI/DNR in the perioperative period but is okay with full code during the operation if needed. Telehealth: Statement Statement Telehealth Visit: Today's History and Physical is provided via interactive telehealth by Parveen Claudio MD.? Patient is located at [facility].? Provider is located at [facility].? Nursing staff assisted with the patient's exam. The visit being done today meets criteria for a telehealth visit and the patient or patient?s parent/guardian is aware the visit is a telehealth visit. Camera Start Time: 01:20 Camera End Time: 01:32
[2024-03-14] MEDS: ONDANSETRON 2 MG/ML inj 4 MG IVP ×2 (02:14→17:17)
[2024-03-14] MEDS: 0.9 % SODIUM CHLORIDE 1000 ml 1,000 ML 75 ML IV (02:14)
[2024-03-14] MEDS: SODIUM CHLORIDE 0.9 % (FLUSH) 10 ML SYRINGE 5 ML IVF (02:17)
--- NOTE | 2024-03-14 08:06 | PC.NURSE ---
End of shift - Pt arrived from ED at approximately 1245. Pt alert, oriented, cooperative with family at bedside. Pt reported pain in R hip as 8/10 that increased with repositioning. Medication given per MAR with pt verbalizing improvement. Pt noted to experience waves of nausea and retching that did not coincide with medication administration. Pt reported feelings of anxiety and worry when discussing repositioning with RN. These feelings appeared to coincide with the nauseous episodes. Anti-nausea medication given per MAR with pt reporting decreased nausea. Tolerating O2 via nasal cannula at 2L. Observed to sleep during shift, appears to be resting comfortably in bed at end of shift.
[2024-03-14] MEDS: OMEPRAZOLE 20 MG CAPSULE DR 40 MG PO (09:41)
[2024-03-14] MEDS: DULOXETINE HCL 20 MG CAPSULE DR PO (09:42)
[2024-03-14] MEDS: predniSONE 20 MG TABLET PO (09:42)
--- NOTE | 2024-03-14 11:25 | RESP.RT ---
Patient has Home Oxygen at 2 Lpm. talked to son, he'll check to see portable unit brought in when discharged. Currently on NC 2 Lpm, resting in bed, SaO2 93%, RR 18/minute, breathing regular/easy. Patient hX of ALLIE, does not have Home CPAP, use of Oxygen at night. BBS clear, diminished in bases.
--- OUTSIDE RECORDS SUMMARY | 2024-03-14 11:35 | XMS_ITS | Clinical Summary ---
Author Organization [facility] Address [address] [place] [address] Care Team Providers Care Powerhouse Electrician Apprentice Name Role Phone [facility] Allergies Active Allergy Reactions Criticality Noted [...] BILATERAL W/ MAURIZIO Routine 09/16/2019 10:48 AM ASSOCIATE PROFESSOR OF PSYCHOLOGY Visit for screening mammogram CT CHEST W/O CONTRAST Routine 09/16/2019 10:02 AM ASSOCIATE PROFESSOR OF PSYCHOLOGY Pulmonary nodules HEPATITIS C ANTIBODY Routine 09/25/2016 10:49 AM ASSOCIATE PROFESSOR OF PSYCHOLOGY Routine general medical examination at a health [...] 06/05/2021 11:13 AM CDT Lavonne Saúl [employer] SPECIALIST LAB - BLOOD [facility] [address] Lab (no room number, 1st floor of clinic) [place] [address], [facility] [phone] * Spirometry - HIM Scan (11/21/2020) Narrative Jamin Leon - 11/21/2020 [facility] PROGRESS NOTE Provider Outside PFT ORDERABLES * Basic metabolic panel (Ca, Cl, CO2, Creat, Gluc, K, Na, BUN) (04/13/2020 12:08 PM CDT) Sodium 134 133 - 144 mmol/L 04/14/2020 11:00 AM T [facility] Potassium 3.9 3.4 - 5.3 mmol/L 04/14/2020 11:00 AM T [facility] Chloride 101 94 - 109 mmol/L 04/14/2020 11:00 AM T [facility] Carbon Dioxide 25 20 - 32 mmol/L 04/14/2020 11:18 AM T [facility] Anion Gap 8 3 - 14 mmol/L 04/14/2020 11:18 AM T [facility] Glucose 81 70 - 99 mg/dL 04/14/2020 11:18 AM T [facility] Comment:Non Fasting Urea Nitrogen 13 7 - 30 mg/dL 04/14/2020 11:18 AM T [facility] Creatinine 0.77 0.52 - 1.04 mg/dL 04/14/2020 11:18 AM T [facility] GFR Estimate 75 >60 mL/min/{1 .73_m2} 04/14/2020 11:18 AM CDT [facility] Comment: Non GFR Calc Starting 09/23/2018, serum creatinine based estimated GFR (eGFR) will be calculated using the Chronic Kidney Disease Epidemiology Collaboration (CKD-EPI) equation. GFR Estimate If Black 87 >60 mL/min/{1 .73_m2} 04/14/2020 11:18 AM CDT [facility] Comment: GFR Calc Starting 09/23/2018, serum creatinine based estimated GFR (eGFR) will be calculated using the Chronic Kidney Disease Epidemiology Collaboration (CKD-EPI) equation. Calcium 8.5 8.5 - 10.1 mg/dL 04/14/2020 11:18 AM CDT [facility] Blood specimen (specimen) 04/13/2020 12:08 PM CDT 04/13/2020 12:10 PM CDT Alejandro Singer MD LAB - BLOOD ORDERABL ES [facility] [address] [place] [address] * DX Hip/Pelvis/Spine w Lat Fraction Guera (03/09/2020 11:51 AM CDT) Anatomical Region Laterality Modality Dexa Bone Mineral Den sity Narrative 03/09/2020 10:07 PM CDT BONE DENSITOMETRY [address] [address] 03/09/2020 ?? PATIENT: Marty Rivera CHART: [id number] : ??1945 AGE: ??75 year old SEX: ??female REFERRING PROVIDER: ??Tia Oakes MD ?? PROCEDURE: ??Bone density scanning was performed using DXA technology of the lumbar spine and hip. ??Scanning was performed on a [employer] scanner. ??Reporting is completed in the form [...] to another DXA performed on the same [employer] ?? machine on 04/20/2015. ?? LATERAL VERTEBRAL ASSESSMENT Procedure: ??Vertebral fracture assessment was performed in the lateral decubitus position using a [employer] ??densitometer. Indications for VFA: T-score of -1.0 [...] MA Screen Bilateral w/Maurizio (09/16/2019 10:48 AM ASSOCIATE PROFESSOR OF PSYCHOLOGY) Anatomical Region Laterality Modality Breast Bilateral Mammography Impressions 09/16/2019 11:14 AM ASSOCIATE PROFESSOR OF PSYCHOLOGY IMPRESSION: BI-RADS CATEGORY: 1 - ??Negative. RECOMMENDED FOLLOW-UP: Annual Mammography. ALEJANDRO LOYD MD Narrative 09/16/2019 11:14 AM ASSOCIATE PROFESSOR OF PSYCHOLOGY SCREENING MAMMOGRAM, BILATERAL, DIGITAL w/CAD and TOMOSYNTHESIS, [...] CT Chest w/o Contrast (09/16/2019 10:02 AM ASSOCIATE PROFESSOR OF PSYCHOLOGY) Anatomical Region Laterality Modality Chest, SUBRAD CT BODY, UMP CT CHEST, RAD CT Computed Tomography Impressions 09/16/2019 12:11 PM ASSOCIATE PROFESSOR OF PSYCHOLOGY IMPRESSION: 1. Multiple indeterminate lung nodules. Due [...] BRENT SMALLWOOD MD Narrative 09/16/2019 12:11 PM ASSOCIATE PROFESSOR OF PSYCHOLOGY CT CHEST WITHOUT CONTRAST 09/16/2019 10:02 AM [...] * Hepatitis C antibody (09/25/2016 10:49 AM ASSOCIATE PROFESSOR OF PSYCHOLOGY) Hepatitis C Antibody Nonreactive Assay performance characteristics have not been established for newborns, infants, and children NR [facility] Blood specimen (specimen) 09/25/2016 10:49 AM ASSOCIATE PROFESSOR OF PSYCHOLOGY 09/25/2016 10:52 AM ASSOCIATE PROFESSOR OF PSYCHOLOGY Tia Oakes MD LAB - BLOOD ORDERA BLES [facility] [address] [place] [address] from Last 3 Months or Most Recently Relevant to Health Maintenance Care Teams Powerhouse Electrician Apprentice Relationship Specialty Start Date End Date [facility] - [address] [id number] Assigned PCP 10/31/23
--- OUTSIDE RECORDS SUMMARY | 2024-03-14 11:35 | XMS_ITS | Clinical Summary ---
Author Organization [facility] Address [address] [place] [address] Care Team Providers Care Wrapper Rewinder Name Role Phone Erinn Reina M.D. Primary Care Provider [phone] Source Comments Patient records contain information from all sites at [facility]. For routine questions regarding patient records, call [phone] during business hours, M-F 8:00 AM - 5:00 PM Central Time. Record requests for emergency care only can be directed to [phone] at any time.[facility] Allergies Active Allergy Reactions Criticality Noted [...] 30- 60py cumulative smoking history. Her primary childcare director is Dr. Thorpe. In Nov 2021, she [...] Department of Physical Medicine and Rehabilitation in [place], [place] [address] [place] [address] Rod Collins M.D. Elana Winters, P.T. Pain Low Back Unspecified (Primary Dx); Osteoporosis; Pain Back 03/04/2024 1:30 PM CDT Office Visit Division of Pulmonary Medicine in [place], [place] [address] [place] [phone] Arjun Umana M.D. Chronic Obstructive Pulmonary Disease (HCC) (Primary Dx); Hypertension Pulmonary (HCC); Chronic Right Heart Failure (HCC); Nicotine Dependence Cigarettes; Abdominal Pain 02/19/2024 Clinical Communication Division of Pulmonary Medicine in [place], [place] [address] [place] [address] Seun Bey M.D. Xcell energy form 02/18/2024 10:45 AM CDT Comprehensive Visit Department of Physical Medicine and Rehabilitation in [place], [place] [address] [place] [address] Rod Collins M.D. Ambroz, Colleen P, P.T. Pain Back (Primary Dx); Osteoporosis; Pain Low Back Unspecified 02/05/2024 Orders Only Division of Endocrinology in [place], [place] [address] [place] [address] Rod Collins M.D. Osteoporosis (Primary Dx); Pain Low Back Unspecified; Pain Back 02/04/2024 10:00 AM CDT Clinical Support Department of Physical Medicine and Rehabilitation in [place], [place] [address] [place] [address] Tony Schwartz P.A.-C. Ambroz, Colleen P, P.T. Fibromyalgia (Primary Dx); Pain Low Back Unspecified 02/04/2024 Clinical Communication Division of Endocrinology in [place], [place] [address] [place] [address] Rod Collins M.D. 02/01/2024 Orders Only Division of Endocrinology in [place], [place] [address] [place] [address] Rod Collins M.D. Anemia Iron Deficiency (Primary Dx); Osteoporosis 01/29/2024 10:45 AM CDT Clinical Support Department of Physical Medicine and Rehabilitation in [place], [place] [address] [place] [address] Tony Schwartz P.A.-C. Ambroz, Colleen P, P.T. Fibromyalgia (Primary Dx); Pain Low Back Unspecified 01/29/2024 Clinical Communication Department of Family Medicine, [facility], in [place], [place] [address] [place] [address] Erinn Reina M.D. 01/28/2024 9:00 AM CDT Comprehensive Visit Division of Endocrinology in [place], [place] [address] [place] [address] Jesus Feng APRN, C.N.PRod Suarez M.D. Osteoporosis (Primary Dx); Pain Back; Fracture Vertebra Compression Thoracic Closed Initial (HCC) 01/17/2024 12:45 PM CDT Clinical Support Department of Physical Medicine and Rehabilitation in [address] [address] Tony Schwartz P.A.-C. Ambroz, Colleen P, P.T. Fibromyalgia (Primary Dx); Pain Low Back Unspecified 01/15/2024 11:30 AM CDT - 01/15/2024 11:59 PM CDT Hospital Encounter Department of Laboratory Medicine in [address] [phone] Vitor Calle M.D. Dyspnea Multifactorial; Anemia Iron Deficiency Discharge Disposition: Home or Self Care 01/09/2024 Orders Only Department of Vascular Medicine in [place], [place] [address] [place] [address] Tony Schwartz P.A.-C. Anemia Iron Deficiency (Primary Dx) 01/08/2024 11:30 AM CDT Office Visit Department of Cardiovascular Diseases in [address] [address] Vitor Calle M.D. Dyspnea Multifactorial (Primary Dx) 01/07/2024 Orders Only [facility] PCP TH MNT Erinn Reina M.D. 01/06/2024 12:30 PM CDT Clinical Support Department of Physical Medicine and Rehabilitation in [place], [place] [address] [place] [address] Tony Schwartz P.A.-C. Ambroz, Colleen P, P.T. Fibromyalgia; Pain Low Back Unspecified 01/02/2024 9:15 AM CDT Clinical Support Department of Physical Medicine and Rehabilitation in [place], [place] [address] [place] [address] Tony Schwartz P.A.-C. Ambroz, Colleen P, P.T. Fibromyalgia (Primary Dx); Pain Low Back Unspecified 01/01/2024 1:14 PM CDT - 01/01/2024 11:59 PM CDT Hospital Encounter Department of Cardiovascular Diseases in [place], [place] [address] [place] [address] Vitor Calle M.D. Dilated Aortic Root (HCC); Dyspnea Multifactorial Discharge Disposition: Home or Self Care 12/26/2023 10:45 AM CDT Clinical Support Department of Physical Medicine and Rehabilitation in [place] [address] [place] [address] Tony Schwartz P.A.-C. Ambroz, Elana Alves, P.T. [...] often do you attend [facility] or [facility] services? 1 to 4 times per year 03/05/2022 Do you belong to any clubs o r organizations such as presybeterian groups, unions, fraternal or athletic groups, or [...] Date Recorded PHQ-2 Score 1 08/15/2022 [facility] - Occupational Stress Questionnaire Answer Date [...] your living situation today? [facility] live 04/10/2023 Education Answer Date Recorded What is the highest level of school you have completed or the highest degree you have received? 12th grade 04/14/2019 Sex and Gender Information Value Date Recorded Sex Assigned at Female 10/24/2023 10:51 PM INSULATION EXTRUDER OPERATOR Gender Identity Female 02/10/2019 11:51 AM CDT Sexual Orientation Straight 02/10/2019 11 :51 AM CDT Last Filed Vital Signs Vital Sign Reading Time Taken Comments Blood Pressure 105/74 03/04/2024 1:14 PM CDT Pulse 111 03/04/2024 1:14 PM CDT Temperature 36.6 ??C (97.8 ??F) 03/04/2024 1 :14 PM CDT Respiratory Rate 18 12/03/2022 3:20 PM INSULATION EXTRUDER OPERATOR Oxygen Saturation 73% 03/04/2024 1:1 4 [...] Department of Physical Medicine and Rehabilitation in [place], [place] [address] [place] [address] Rod Collins M.D. [address] [place] [address] Elana Winters, P.T. [address] [place] [address] 03/24/2024 12:45 PM CDT Clinical Support Department of Physical Medicine and Rehabilitation in [place], [place] [address] [place] [address] Rod Collins M.D. [address] [place] [address] Elana Winters, P.T. [address] [place] [address] 03/31/2024 12:45 PM CDT Clinical Support Department of Physical Medicine and Rehabilitation in [place], [place] [address] [place] [address] Rod Collins M.D. [address] [place] [phone] Elana Winters P, P.T. [address] [place] [phone] 04/07/2024 12:45 PM CDT Clinical Support Department of Physical Medicine and Rehabilitation in [place], [place] [address] [place] [address] Rod Collins M.D. [address] [place] [address] Elana Winters, P.T. [address] [place] [phone] 04/14/2024 12:45 PM CDT Clinical Support Department of Physical Medicine and Rehabilitation in [place], [place] [address] [place] [address] Rod Collins M.D. [address] [place] [phone] Elana Winters, P.T. [address] [place] [phone] 04/21/2024 12:45 PM CDT Clinical Support Department of Physical Medicine and Rehabilitation in [place], [place] [address] [place] [address] Rod Collins M.D. [address] [place] [address] Elana Winters, P.T. [address] [place] [phone] 04/28/2024 12:45 PM CDT Clinical Support Department of Physical Medicine and Rehabilitation in [place], [place] [address] [place] [address] Rod Collins M.D. [address] [place] [address] Elana Winters, [place] [phone] Health Maintenance Due Date Last Done Comments [...] Discontinued 11/01/2023 Medical Devices Implanted Type Area Weather Observer Device Identifier Shelf Expiration Date Model / Serial / Lot Stnt Visi Pro Otw [id number] - [id number] Implanted:Qt y: 1 on 05/04/2019 by Tyson Liao M.D. at [facility] Biliary Stent N/A: Arterial Medtronic 09/24/2019 [id number] / / [id number] Description:SMA #2 Stnt Visi Pro Otw [id number] - [id number] Implanted:Qt y: 1 on 05/04/2019 by Tyson Liao M.D. at [facility] Biliary Stent Right: Arterial Medtronic 03/23/2021 [id number] -27-135 / / [id number] Description:Celiac Artery #2 Stnt Icast Atrm Cov [id number] - [id number] - [id number] Implanted:Qt y: 1 on 05/04/2019 by Tyson Liao M.D. at [facility] Respiratory Stent Right: Arterial Atrium 02/18/2022 [id number] / [id number] / Description:Right Renal Emma ry Stnt Icast Atrm Cov [id number] - [id number] - [id number] Implanted:Qt y: 1 on 05/04/2019 by Tyson Liao M.D. at [facility] Respiratory Stent Right: Arterial Atrium 02/06/2022 [id number] / [id number] / Description:Left renal arter y Stnt Icast Atrm Cov [id number] - [id number] - [id number] Implanted:Qt y: 1 on 05/04/2019 by Tyson Liao M.D. at [facility] Respiratory Stent Right: Arterial Atrium 03/27/2022 [id number] / [id number] / Description:SMA Stnt Icast Atrm Cov [id number] - [id number] - [id number] Implanted:Qt y: 1 on 05/04/2019 by Tyson Liao M.D. at [facility] Respiratory Stent Right: Arterial Atrium 01/29/2022 [id number] / [id number] / Description:Left renal arter y Stnt Icast Atrm Cov [id number] - [id number] - [id number] Implanted:Qt y: 1 on 05/04/2019 by Tyson Liao M.D. at [facility] Respiratory Stent Right: Arterial Atrium 03/27/2022 [id number] / [id number] / Description:Celiac Artery Shy-Xdjecc-G enestrated-P natali Stent Graft Implanted:Qt y: 1 on 05/04/2019 by Tyson Liao M.D. at [facility] Stent Other N/A: Aorta [employer] [id number] 03/23/2022 [id number] / / [id number] Aaa-Bifurcat ed-Graft Implanted:Qt y: 1 on 05/04/2019 by Tyson Liao M.D. at [facility] Stent Other N/A: Aorta [employer] [id number] 03/17/2022 [id number] / / [id number] Grft Znt Ilc Ext [id number] - [id number] Implanted:Qt y: 1 on 05/04/2019 by Tyson Liao M.D. at [facility] Vascular Graft Left: Arterial [employer] 12/02/2021 [id number] / / [id number] Description:Left Iliac Stnt Innova Otw [id number] - [id number] Implanted:Qt y: 1 on 05/04/2019 by Tyson Liao M.D. at [facility] Vascular Stent Right: Arterial [employer] 11/03/2020 [id number] / / [id number] Description:Right Renal Emma ry Procedures Procedure Name Priority Date/Time Associated Diagnosis Comments ARTERIAL BLOOD GAS - PULMONARY CLINIC Routine 03/04/2024 2:42 PM CDT Chronic Obstructive Pulmonary Disease (HCC) TISSUE TRANSGLUTAMINASE (TTG) AB, IGA, S Routine 01/28/2024 10:16 AM CDT MO T4 FREE Routine 01/28/2024 10:16 AM CDT [...] BILATERAL WITH TOMOSYNTHESIS Routine 09/16/2019 10:48 AM INSULATION EXTRUDER OPERATOR CT CHEST WITHOUT IV CONTRAST Routine 08/2019 10:02 AM INSULATION EXTRUDER OPERATOR from Last 3 Months or Most [...] CDT Arjun Umana M.D. LAB BLOOD ADD-ON [facility] [address] [place] [address], [facility] [address] [place] [address] * Quantitative M-protein Study (01/28/2024 10:16 AM CDT) Pathologist [facility] [place] Immunoglobulin A (IgA), S 304 61 - [...] developed and its performance characteristics determined by [facility] in a manner consistent with CLIA requirements. This test has not been cleared or approved by the U.S. Food and Drug Administration. Blood (Blood, Venous) 01/28/2024 10:16 AM CDT 01/28/2024 2:02 PM CDT Narrative [facility] - 01/29/2024 12:53 PM CDT Specimen Information: Specimen ID: [id number] Specimen Type: Blood Specimen Collection Start Date: 01/28/2024 10:16 AM Specimen Received Date: 01/28/2024 ??2:02 PM Specimen ID: [id number] Specimen Type: Blood Specimen Collection Start Date: 01/28/2024 10:16 AM Specimen Received Date: 01/28/2024 ??1:55 PM Rod Perales M.D. LAB BLOOD ADD-ON [facility] [address] [place] [address] [facility] [address] [place] [place] [address] [place] [phone] [place] [address] [place] [address] * T4 (Thyroxine), Free, Serum (01/28/2024 10:16 AM CDT) T4 (Thyroxine), Free, S 1.0 0.9 - 1.7 ng/dL 01/28/2024 11:30 AM CDT DT Blood 01/28/2024 10:1 6 AM CDT 01/28/2024 10:42 AM CDT Rod Perales M.D. LAB BLOOD ADD-ON [facility] [address] [place] [address], [facility] [address] [place] [address] * (ABNORMAL) Thyroid Function [place] (01/28/2024 10:16 AM CDT) TSH, Sensitive 4.4(H) 0.3 - 4.2 mIU/L 01/28/2024 11:09 AM CDT DT Blood (Blood, Venous) 01/28/2024 10:16 AM CDT 01/28/2024 10:42 AM CDT Rod Perales M.D. LAB BLOOD ADD-ON Performing Organization Address City/[facility]/ZIP Co de Phone Number [facility] [address] [place] [address], [facility] DTL [facility] [address] [place] [address] * Celiac Disease Serology [place] (01/28/2024 10:16 AM CDT) Immunoglobulin A (IgA), S 304 61 - 356 mg/dL 01/28/2024 2:56 PM CDT [facility] Celiac Disease Interpretation See Comment: Negative serology. Celiac disease unlikely. However, approximately 10% of patients with celiac disease are seronegative. Also, patients who are already adhering to a gluten-free diet may be seronegative. If celiac disease is highly clinically suspected, consider HLA-DQ typing. 01/28/2024 9:15 PM CDT [facility] Blood (Blood, Venous) 01/28/2024 10:16 AM CDT 01/28/2024 2:02 PM CDT Narrative [facility] - 01/28/2024 9:15 PM CDT Specimen Information: Specimen ID: [id number] Specimen Type: Blood Specimen Collection Start Date: 01/28/2024 10:16 AM Specimen Received Date: 01/28/2024 ??2:02 PM Specimen ID: [id number] Specimen Type: Blood Specimen Collection Start Date: 01/28/2024 10:16 AM Specimen Received Date: 01/28/2024 ??2:00 PM Rod Perales M.D. LAB BLOOD ADD-ON [facility] [address] [place] [address] [facility] [address] [place] [address] [facility] [address] [place] [address] [place] [address] * Thyroperoxidase (TPO) Antibodies (01/28/2024 10:16 AM CDT) Thyroperoxidase Ab, S 18.5 <34.0 IU/mL 01/28/2024 11:30 AM CDT DT Blood 01/28/2024 10:1 6 AM CDT 01/28/2024 10:42 AM CDT Rod Perales M.D. LAB BLOOD ADD-ON Performing Organization Address City/[facility]/ZIP Co de Phone Number [facility] [address] [place] [address], [facility] [address] [place] [address] * tTG (Tissue Transglutaminase), Antibody, IgA (01/28/2024 10:16 AM CDT) Pathologist [facility] [place] Tissue Transglutaminase Ab, IgA, S <1.2 <4.0 (Negative ) U/mL 01/28/2024 6:42 PM CDT [facility] Blood 01/28/2024 10:1 6 AM CDT 01/28/2024 3:19 PM CDT Rod Perales M.D. LAB BLOOD ADD-ON Performing Organization Address City/[facility]/ZIP Co de Phone Number [facility] [address] [place] [address] [facility] [address] [place] [place] [address] * Connective Tissue Diseases [place] (01/28/2024 10:16 AM CDT) Antinuclear Ab, S 0.1 <=1.0 (Negative ) U 01/28/2024 7:56 PM CDT [facility] Comment: ----ADDITIONAL INFORMATION---- Method: Enzyme-linked immunoassay using HEp-2 nuclear extract supplemented with purified antigens. Cyclic Citrullinated Peptide Ab, S <15.6 <20.0 (Negative ) U 01/28/2024 6:40 PM CDT [facility] Interpretation SEE COMMENT 7:56 PM CDT [facility] Comment: Tests for antibodies to dsDNA and DERIC antigens are not performed automatically unless the TERRI result is > or = 3.0 U. ??Studies performed at [facility] indicate that positive TERRI results <3.0 U are rarely accompanied by positive second order tests. Blood (Blood, Venous) 01/28/2024 10:16 AM CDT 01/28/2024 1:59 PM CDT Rod Perales M.D. LAB BLOOD ADD-ON Performing Organization Address [facility]/ZIP Co de Phone Number [facility] [address] [place] [place] [address] [facility] [address] [place] [place] [address] * (ABNORMAL) 25-Hydroxyvitamin D2 and D3 (01/28/2024 10:16 AM CDT) [facility] 25-Hydroxy D2 <4.0 ng/mL 01/30/2024 9:01 AM CDT [facility] 25-Hydroxy D3 18 ng/mL 01/30/2024 9:01 AM CDT [facility] 25-Hydroxy D Total 18(L) ng/mL 2023 9:01 AM CDT [facility] Comment: Interpretation: 10-19 ng/mL (mild to moderate deficiency) ----REFERENCE VALUE---- 25-HYDROXY D TOTAL (D2+D3) Optimum levels in the healthy population are 20-50. ----ADDITIONAL INFORMATION---- This test was developed and its performance characteristics determined by [facility] in a manner consistent with CLIA requirements. This test has not been cleared or approved by the U.S. Food and Drug Administration. Blood (Blood, Venous) 01/28/2024 10:16 AM CDT 01/28/2024 1:32 PM CDT Rod Perales M.D. LAB BLOOD ADD-ON Performing Organization Address [facility]/ZIP Co de Phone Number [facility] [address] [place] [address] [facility] [address] [place] [address] [place] [address] * Dehydroepiandrosterone Sulfate (DHEA-S) (01/28/2024 10:16 AM CDT) Dehydroepiandrosterone Sulfate, S 72 5.3 - 124 mcg/dL 01/28/2024 3:53 PM CDT [facility] Blood (Blood, Venous) 01/28/2024 10:16 AM CDT 01/28/2024 2:58 PM CDT Rod Perales M.D. LAB BLOOD ADD-ON Performing Organization Address City/[facility]/ZIP Co de Phone Number [facility] [address] [place] [address] [facility] [address] [place] [address] * Sedimentation Rate (01/28/2024 10:16 AM CDT) Pathologist [facility] [place] Sedimentation Rate, B 8 3 - 28 mm/h 01/28/2024 11:48 AM CDT DT Blood (Blood, Venous) 01/28/2024 10:16 AM CDT 01/28/2024 10:30 AM CDT Rod Perales M.D. LAB BLOOD ADD-ON Performing Organization Address [facility] Co de Phone Number [facility] [address] [place] [address], [facility] [address] [place] [address] * (ABNORMAL) CBC with Differential, Blood (01/28/2024 10:16 AM CDT) Only the most recent of2 resultswithin the time period is included. Pathologist [facility] [place] Hemoglobin 12.5 11.6 - 15.0 g/dL 01/28/2024 [...] CDT Rod Perales M.D. LAB BLOOD ADD-ON [facility] [address] [place] [address], [facility] DTL [facility] [address] [place] [address] DHPM [facility] [address] [place] [address] * Rheumatoid Factor (01/28/2024 10:16 AM CDT) Pathologist [facility] [place] Rheumatoid Factor, S <15 <15 IU/mL 01/28/2024 3:40 PM CDT [facility] Blood (Blood, Venous) 01/28/2024 10:16 AM CDT 01/28/2024 3:01 PM CDT Rod Perales M.D. LAB BLOOD ADD-ON [facility] [address] [place] [address] [facility] [address] [place] [address] * CRP (C-Reactive Protein) (01/28/2024 10:16 AM CDT) Pathologist [facility] C-Reactive Protein (CRP), S <3.0 <5.0 mg/L 01/28/2024 11:09 AM CDT DTL Blood (Blood, Venous) 01/28/2024 10:16 AM CDT 01/28/2024 10:42 AM CDT Rod Perales M.D. LAB BLOOD ADD-ON Performing Organization Address City[facility]/ZIP Co de Phone Number [facility] [address] [place] [address] * Ferritin (01/28/2024 10:16 AM CDT) Only the most recent of2 resultswithin the time period is included. [facility] Ferritin, S 262 11 - 328 mcg/L 01/28/2024 11:09 AM CDT DT Blood (Blood, Venous) 01/28/2024 10:16 AM CDT 01/28/2024 10:42 AM CDT Rod Perales M.D. LAB BLOOD ADD-ON [facility] [address] [place] [address] * CK (Creatine Kinase) (01/28/2024 10:16 AM CDT) Pathologist [facility] [place] Creatine Kinase (CK), S 116 26 - 192 U/L 01/28/2024 11:09 AM CDT DT Blood (Blood, Venous) 01/28/2024 10:16 AM CDT 01/28/2024 10:42 AM CDT Rod Perales M.D. LAB BLOOD ADD-ON Performing Organization Address [facility] Co de Phone Number [facility] [address] [place], [place] [address] [address] [place] [address] * Cortisol (01/28/2024 10:16 AM CDT) Cortisol, Random, S 12 mcg/dL 01/28/2024 11:09 AM CDT DTL Comment: ----REFERENCE VALUE---- AM ([id number]): 4.8-20 PM ([phone]): 2.5-12 Blood (Blood, Venous) 01/28/2024 10:16 AM CDT 01/28/2024 10:42 AM CDT Rod Perales M.D. LAB BLOOD ADD-ON Performing Organization Address [facility] de Phone Number [facility] [address] [place] [address], [facility] [address] [place] [address] * (ABNORMAL) Comprehensive Metabolic Panel (01/28/2024 10:16 [...] Perales M.D. LAB BLOOD ADD-ON [facility] [address] [place] [address], [facility] [address] [place] [address] * NT-Pro B-Type Natriuretic Peptide (BNP) (01/15/2024 [...] M.D. LAB BLOOD ADD-ON Performing Organization Address [facility] Co de Phone Number [facility] [address] [place] [address], [place] OWAT [facility] [address] [place] [address] * (ABNORMAL) Iron and Total Iron-Binding Capacity [...] P.A.-C. LAB BLOOD ADD-ON Performing Organization Address [facility]/ZIP Co de Phone Number [facility] [address] [place] [address], [place] A[place] [facility] [address] [place] [address] * Sodium (01/15/2024 11:41 AM CDT) Sodium, P 139 135 - 145 mmol/L 01/15/2024 2:15 PM CDT [facility] Blood (Blood, Venous) 01/15/2024 11:41 AM CDT 01/15/2024 1:31 PM CDT Vitor Calle M.D. LAB BLOOD ADD-ON [facility] [address] [place] [address], [facility] OWAT [facility] [address] [place] [address] * Potassium (01/15/2024 11:41 AM CDT) Potassium, P 4.5 3.6 - 5.2 mmol/L 01/15/2024 2:15 PM CDT [facility] Blood (Blood, Venous) 01/15/2024 11:41 AM CDT 01/15/2024 1:31 PM CDT Vitor Calle M.D. LAB BLOOD ADD-ON Performing Organization Address [facility]/ZIP Co de Phone Number [facility] [address] [place] [address], [facility] OWAT [facility] [address] [place] [address] * Creatinine with Estimated GFR (01/15/2024 11:41 AM CDT) Creatinine 0.72 0.59 - 1.04 mg/dL 01/15/2024 2:15 PM CDT [facility] Estimated GFR (eGFR) 86 >=60 mL/min/BSA 01/15/2024 2:15 PM CDT [facility] Comment: Estimated GFR calculated using the 2020 CKD_EPI creatinine equation. Blood (Blood, Venous) 01/15/2024 11:41 AM CDT 01/15/2024 1:31 PM CDT Vitor Calle M.D. LAB BLOOD ADD-ON [facility] [address] [place] [address], [place] OWAT [facility] [address] [place] [address] * (TTE) 2D ECHO DOPPLER COLOR (01/01/2024 [...] ratio). Calculated 2-D linear left ventricular ejection oxcuutdu16%. No regional wall motion abnormalities. 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 [address] [place] [address] [place] [address] PCP - General Family Medicine 09/08/21
--- OUTSIDE RECORDS SUMMARY | 2024-03-14 11:35 | XMS_ITS | Encounter Summary ---
Author Organization [facility] Address [address] [place] [address] Care Team Providers Care Staffing Manager Name Role Phone Lavonne Hays APRN, CNP Primary Care Provider Belen Tia Suarez MD Unavailable [phone] Lavonne Hays APRN, CNP Unavailable Unavailab Alejandro Florence MD Unavailable [phone] Lavonne Hays APRN, CNP Unavailable Unavailab [facility] Unavailable Reason for Visit * Reason Comments Medication Refill Encounter Details Date Type Department Care Team (Late st Contact Info) Description 12/08/2021 Refill [facility] [address] [place] [address] Lavonne Hays APRN CNP NO INFO AVAILABLE [...] 12/08/2021 1:55 PM CST Prescription approved per [facility] Refill Protocol. Bri Mason RN R OPERATOR documented in this encounter Plan of Treatment Not on file documented as of this encounter Visit Diagnoses Diagnosis Hyperlipidemia LDL goal <100 Other and unspecified hyperlipidemia TIA (transient ischemic attack) Unspecified transient cerebral ischemia documented in this encounter Additional Health Concerns Assessment Noted Time PHQ-9 Depression Total Score: 10 021 10:07 AM CDT documented as of this encounter Care Teams Staffing Manager Relationship Specialty Start Date End Date Lavonne Hays APRN MAPPING SUPERVISOR PCP - General Internal Medicine 05/19/21 12/18/23 Tia Oakes MD [address] [place] [address] Assigned PCP 10/15/21 12/16/21 Lavonne Hays APRN MAPPING SUPERVISOR NO INFO AVAILABLE 04/29/2023 Assigned PCP 12/17/21 12/07/22 Alejandro Singer MD [address] [facility] [address] [place] [address] Assigned PCP 12/08/22 04/19/23 Lavonne Hays APRN MAPPING SUPERVISOR NO INFO AVAILABLE 04/29/2023 Assigned PCP 04/20/23 10/30/23 [facility] [address] [place], [place] [address] Assigned PCP 10/31/23 documented as of this encounter
--- OUTSIDE RECORDS SUMMARY | 2024-03-14 11:35 | XMS_ITS | Referral Summary ---
Author Organization [place] Address [address] [place] [address] Care Team Providers Care Email Producer Name Role Phone [facility] Allergies Active Allergy Reactions Criticality Noted Date [...] BILATERAL W/ MAURIZIO Routine 09/16/2019 10:48 AM DETECTOR CAR OPERATOR Visit for screening mammogram CT CHEST W/O CONTRAST Routine 09/16/2019 10:02 AM DETECTOR CAR OPERATOR Pulmonary nodules HEPATITIS C ANTIBODY Routine 09/25/2016 10:49 AM DETECTOR CAR OPERATOR Routine general medical examination at a [...] 06/05/2021 11:13 AM CDT Lavonne Hays APRN VALUE ANALYSIS COORDINATOR LAB - BLOOD [facility] [address] Lab (no room number, 1st floor of clinic) [place] [address], [facility] [phone] * Spirometry - HIM Scan (11/21/2020) Jamin Borrego - 11/21/2020 [facility] PROGRESS NOTE Provider Outside PFT ORDERABLES * Basic metabolic panel (Ca, Cl, CO2, Creat, Gluc, K, Na, BUN) (04/13/2020 12:08 PM CDT) Sodium 134 133 - 144 mmol/L 04/14/2020 11:[address] [facility] Potassium 3.9 3.4 - 5.3 mmol/L 04/14/2020 11:[address] [facility] Chloride 101 94 - 109 mmol/L 04/14/2020 11:[address] [facility] Carbon Dioxide 25 20 - 32 mmol/L 04/14/2020 11:[address] [facility] Anion Gap 8 3 - 14 mmol/L 04/14/2020 11:[address] [facility] Glucose 81 70 - 99 mg/dL 04/14/2020 11:[address] [facility] Comment:Non Fasting Urea Nitrogen 13 7 - 30 mg/dL 04/14/2020 11:[address] [facility] Creatinine 0.77 0.52 - 1.04 mg/dL 04/14/2020 11:[address] [facility] GFR Estimate 75 >60 mL/min/{1 .73_m2} 04/14/2020 11:[address] [facility] Comment: Non GFR Calc Starting 09/23/2018, serum creatinine based estimated GFR (eGFR) will be calculated using the Chronic Kidney Disease Epidemiology Collaboration (CKD-EPI) equation. GFR Estimate If Black 87 >60 mL/min/{1 .73_m2} 04/14/2020 11:[address] [facility] Comment: GFR Calc Starting 09/23/2018, serum creatinine based estimated GFR (eGFR) will be calculated using the Chronic Kidney Disease Epidemiology Collaboration (CKD-EPI) equation. Calcium 8.5 8.5 - 10.1 mg/dL 04/14/2020 11:[address] [facility] Blood specimen (specimen) 04/13/2020 12:08 PM CDT 04/13/2020 12:10 PM CDT Alejandro Singer MD LAB - BLOOD ORDERABL ES [facility] [address] [place] [address] * DX Hip/Pelvis/Spine w Lat Fraction Guera (03/09/2020 11:51 AM CDT) Anatomical Region Laterality Modality Dexa Bone Mineral Den sity Narrative 03/09/2020 10:07 PM CDT BONE DENSITOMETRY [address] [address] 03/09/2020 ?? PATIENT: Marty Rivera CHART: [id number] : ??1945 AGE: ??75 year old SEX: ??female REFERRING PROVIDER: ??Tia Oakes MD ?? PROCEDURE: ??Bone density scanning was performed using DXA technology of the lumbar spine and hip. ??Scanning was performed on a ThirdLoveigInvenQuery scanner. ??Reporting is completed in the form [...] to another DXA performed on the same Workstir ?? machine on 04/20/2015. ?? LATERAL VERTEBRAL ASSESSMENT Procedure: ??Vertebral fracture assessment was performed in the lateral decubitus position using a Pintley ProdigInvenQuery ??densitometer. Indications for VFA: T-score of -1.0 [...] MA Screen Bilateral w/Maurizio (09/16/2019 10:48 AM DETECTOR CAR OPERATOR) Anatomical Region Laterality Modality Breast Bilateral Mammography Impressions 09/16/2019 11:14 AM DETECTOR CAR OPERATOR IMPRESSION: BI-RADS CATEGORY: 1 - ??Negative. RECOMMENDED FOLLOW-UP: Annual Mammography. ALEJANDRO LOYD MD Narrative 09/16/2019 11:14 AM DETECTOR CAR OPERATOR SCREENING MAMMOGRAM, BILATERAL, DIGITAL w/CAD and [...] CT Chest w/o Contrast (09/16/2019 10:02 AM DETECTOR CAR OPERATOR) Anatomical Region Laterality Modality Chest, SUBRAD CT BODY, UMP CT CHEST, RAD CT Computed Tomography Impressions 09/16/2019 12:11 PM DETECTOR CAR OPERATOR IMPRESSION: 1. Multiple indeterminate lung nodules. [...] BRENT SMALLWOOD MD Narrative 09/16/2019 12:11 PM DETECTOR CAR OPERATOR CT CHEST WITHOUT CONTRAST 09/16/2019 10:02 [...] * Hepatitis C antibody (09/25/2016 10:49 AM DETECTOR CAR OPERATOR) Hepatitis C Antibody Nonreactive Assay performance characteristics have not been established for newborns, infants, and children NR [facility] Blood specimen (specimen) 09/25/2016 10:49 AM DETECTOR CAR OPERATOR 09/25/2016 10:52 AM DETECTOR CAR OPERATOR Tia Oakes MD LAB - BLOOD ORDERA BLES [facility] [address] [place] [address] from Last 3 Months or Most Recently Relevant to Health Maintenance Care Teams Email Producer Relationship Specialty Start Date End Date [facility] [address] [address] Assigned PCP 10/31/23
--- OUTSIDE RECORDS SUMMARY | 2024-03-14 11:35 | XMS_ITS | Encounter Summary ---
Author Organization [facility] Address [address] [place] [address] Care Team Providers Care Scientific Software Engineer Name Role Phone Tia Oakes MD Unavailable [phone] Lavonne Hays APRN, CNP Primary Care Provider Belen vailable Lavonne Hays APRN, CNP Unavailable Unavailab Tia Darling MD Unavailable [phone] Lavonne Hays APRN [facility] Unavailable Unavailab Alejandro Florence MD Unavailable Lavonne Hays APRN [facility] Unavailable Unavailab [facility] Unavailable Encounter Details Date Type Department Care [...] documented as of this encounter Care Teams Scientific Software Engineer Relationship Specialty Start Date End Date Lavonne Hays APRN [facility] [address] [place] [address] PCP - General Internal Medicine 05/19/21 12/18/23 Tia Oakes MD [address] [address] Assigned PCP 04/21/21 06/10/21 Lavonne Hays APRN [facility] NO INFO AVAILABLE 04/29/2023 Assigned PCP 06/11/21 10/14/21 Tia Oakes MD [address] [place] [address] Assigned PCP 10/15/21 12/16/21 Lavonne Hays APRN [facility] NO INFO AVAILABLE 04/29/2023 Assigned PCP 12/17/21 12/07/22 Alejandro Singer MD [address] [address] Assigned PCP 12/08/22 04/19/23 Lavonne Hays APRN [facility] NO INFO AVAILABLE 04/29/2023 Assigned PCP 04/20/23 10/30/23 [facility] [address] [address] Assigned PCP 10/31/23 documented as of this encounter
--- OUTSIDE RECORDS SUMMARY | 2024-03-14 11:36 | XMS_ITS | Encounter Summary ---
Author Organization [facility] Address [address] [place] [address] Care Team Providers Care Ram Car Operator Name Role Phone Erinn Reina M.D. Primary Care Provider Encounter Details Date Type Department Care Team (Latest Contact Info) Description 02/04/2024 Clinical Communication Division of Endocrinology in [place], [place] [address] [place] [address] Rod Collins M.D. [address] [place] [phone] Social History Tobacco Use Types Packs/Day Years [...] often do you attend chur ch or judaism services? 1 to 4 times per year 03/05/2022 Do you belong to any clubs o r organizations such as anabaptist groups, unions, fraternal or athletic groups, or [...] Score 1 08/15/2022 [facility] Questionnaire Answer Date [...] living situation today? I have a [facility] place to live 04/10/2023 Education Answer Date Recorded What is the highest level of school you have completed or the highest degree you have received? 12th grade 04/14/2019 Sex and Gender Information Value Date Recorded Sex Assigned at Female 10/24/2023 10:51 PM VOLUNTEER FIRE FIGHTER Gender Identity Female 02/10/2019 11:51 AM CDT Sexual Orientation Straight 02/10/2019 11 :51 AM CDT documented as of this encounter Plan of Treatment Upcoming Encounters Date Type Department Care Team (Late st Contact Info) Description 03/17/2024 9:15 AM CDT Clinical Support Department of Physical Medicine and Rehabilitation in [place], [place] [address] [place] [address] Rod Collins M.D. [address] [place] [address] Elana Winters, P.T. [address] [place] [address] 03/24/2024 12:45 PM CDT Clinical Support Department of Physical Medicine and Rehabilitation in [place], [place] [address] [place] [address] Rod Collins M.D. [address] [place] [phone] Elana Winters P, P.T. [address] [address] 03/31/2024 12:45 PM CDT Clinical Support Department of Physical Medicine and Rehabilitation in [place], [place] [address] [place] [address] Rod Collins M.D. [address] [place] [phone] Elana Winters, P.T. [address] [place] [phone] 04/07/2024 12:45 PM CDT Clinical Support Department of Physical Medicine and Rehabilitation in [place], [place] [address] [place] [address] Rod Collins M.D. [address] [place] [phone] Elana Winters P, P.T. [address] [place] [phone] 04/14/2024 12:45 PM CDT Clinical Support Department of Physical Medicine and Rehabilitation in [place], [place] [address] [place] [address] Rod Collins M.D. [address] [place] [phone] Elana Winters, P.T. [address] [place] [phone] 04/21/2024 12:45 PM CDT Clinical Support Department of Physical Medicine and Rehabilitation in [place], [place] [address] [place] [address] Rod Collins M.D. [address] [place] [address] Elana Winters P, P.T. [address] [place] [address] 04/28/2024 12:45 PM CDT Clinical Support Department of Physical Medicine and Rehabilitation in [place], [place] [address] [place] [address] Rod Collins M.D. [address] [place] [address] Elana Winters P, P.T. [address] [place] [phone] documented as of this encounter Visit Diagnoses Not on filedocumented in this encounter Additional Health Concerns Assessment Noted Time PHQ-9 Depression Total Score: 6 08/15/20 22 2:06 AM VOLUNTEER FIRE FIGHTER documented as of this encounter Care Teams Ram Car Operator Relationship Specialty Start Date End Date Erinn Reina M.D. [address] [place] [address] [place] [address] PCP - General Family Medicine 09/08/21 documented as of this encounter
--- OUTSIDE RECORDS SUMMARY | 2024-03-14 11:36 | XMS_ITS ---
Author Organization [facility] Address [address] [place] [address] Care Team Providers Care Site Head Name Role Phone Unavailable Unavailable Unavailable Surgery Details Not on file Complications Check Surgery Details section. Procedure Estimated Blood Loss Check Surgery Details section. Procedure Findings Check Surgery Details section. Procedure Specimens Taken Check Surgery Details section.
--- OUTSIDE RECORDS SUMMARY | 2024-03-14 11:36 | XMS_ITS | Encounter Summary ---
Author Organization [facility] Address [address] [place] [address] Care Team Providers Care Blade Bender Furnace Tender Name Role Phone Erinn Reina M.D. Primary Care Provider [phone] Reason for Visit * Physical Therapy (Routine) - Authorized Specialty Diagnoses / Procedures Referred By Osorio guevara Referred To Contact Diagnoses Osteoporosis Pain Low Back Unspecified Pain Back Procedures PT Ongoing treatment Rod Collins M.D. [address] [place] [address] [facility] Region Referral ID Status Reason Start Date Expiration Date V isits Requested Visits Authorized [id number] Authorized 02/18/2024 02/17/2025 99 99 Encounter Details Date Type Department Care Team (Latest Contact Info) Description 03/10/2024 9:15 AM CDT Clinical Support Department of Physical Medicine and Rehabilitation in [place], [place] [address] [place] [phone] Rod Collins M.D. [address] [place] [phone] Elana Winters P, P.T. [address] [place] [phone] Pain Low Back Unspecified (Primary Dx); Osteoporosis; [...] How often do you attend chur or zoroastrianism services? 1 to 4 times [...] Score 1 08/15/2022 [facility] - Occupational Stress Questionnaire Answer Date [...] living situation today? I have a [facility] place to live 04/10/2023 Education Answer Date Recorded What is the highest level of school you have completed or the highest degree you have received? 12th grade 04/14/2019 Sex and Gender Information Value Date Recorded Sex Assigned at Female 10/24/2023 10:51 PM MALT HOUSE OPERATOR Gender Identity Female 02/10/2019 11:51 AM CDT Sexual Orientation Straight 02/10/2019 11 :51 AM CDT documented as of this encounter Progress Notes * Elana Winters, P.T. - 03/10/2024 9:15 AM CDT [...] AND B / Product Type: Medicare / Goomeo Visit Count: 2 PERTINENT MEDICAL / SURGICAL [...] Procedure: STENT GRAFT ENDOVASCULAR THORACOABDOMINAL AORTA, JENNIFER [id number], Endovascular repair complex abdominal aortic aneurysm using [...] pleasant female who presents today with her MANAGER MERCHANDISE present. Posture: In stance patient demonstrates a [...] for optimal recovery of mobility. In addition [id number] glides attempted throughoutthe thoracic region and passive extension mobilization performed for recovery of posture grade 2 progressing up to a grade 3 oscillating as tolerated. Therapeutic Exercise: Passive range of motion of the right shoulder region and left shoulder regionperformed with flexion, abduction, external rotation as tolerated with resistance to external rotation bilaterally x5 Home Exercise Program/Education: [email or web address] Access Code: [email or web address] Assessment Clinical Impression: Patient [...] Home Exercise Program/Education: Access Code: [email or web address] URL: [email or web address] Date: 03/10/2024 Prepared by: Elana Winters Exercises [...] 1 sets - 10 reps - [place] - 2 x daily - 7 x [...] of Physical Medicine and Rehabilitation in [place], [place] [address] [place] [address] Rod Collins M.D. [address] [place] [phone] Elana Winters P, P.T. [address] [place] [phone] 03/24/2024 12:45 PM CDT Clinical Support Department of Physical Medicine and Rehabilitation in [place], [place] [address] [place] [address] Rod Collins M.D. [address] [place] [phone] Elana Winters P, P.T. [address] [place] [phone] 03/31/2024 12:45 PM CDT Clinical Support Department of Physical Medicine and Rehabilitation in [place], [place] [address] [place] [address] Rod Collins M.D. [address] [place] [phone] Elana Winters P, P.T. [address] [place] [phone] 04/07/2024 12:45 PM CDT Clinical Support Department of Physical Medicine and Rehabilitation in [place], [place] [address] [place] [address] Rod Collins M.D. [address] [place] [phone] Elana Winters, P.T. [address] [place] [phone] 04/14/2024 12:45 PM CDT Clinical Support Department of Physical Medicine and Rehabilitation in [address] [address] Rod Collins M.D. [address] [place] [phone] Elana Winters P, P.T. [address] [place] [phone] 04/21/2024 12:45 PM CDT Clinical Support Department of Physical Medicine and Rehabilitation in [address] [address] Rod Collins M.D. [address] [place] [phone] Elana Winters, P.T. [address] [place] [phone] 04/28/2024 12:45 PM CDT Clinical Support Department of Physical Medicine and Rehabilitation in [address] [address] Rod Collins M.D. [address] [place] [phone] Elana Winters, P.T. [address] [place] [phone] documented as of this encounter Visit Diagnoses Diagnosis Pain Low Back Unspecified- Primary Osteoporosis Pain Back documented in this encounter Additional Health Concerns Assessment Noted Time PHQ-9 Depression Total Score: 6 08/15/20 22 2:06 AM MALT HOUSE OPERATOR documented as of this encounter Care Teams Blade Bender Furnace Tender Relationship Specialty Start Date End Date Erinn Reina M.D. [address] [place] [address] [place] [address] PCP - General Family Medicine 09/08/21 documented as of this encounter
--- OUTSIDE RECORDS SUMMARY | 2024-03-14 11:36 | XMS_ITS | Encounter Summary ---
Author Organization [facility] Address [address] [place] [address] Care Team Providers Care Senior It Engineer Name Role Phone Erinn Reina M.D. Primary Care Provider Encounter Details Date Type Department Care Team (Late st Contact Info) Description 02/01/2024 Orders Only Division of Endocrinology in [place], [place] [address] [place] [phone] Rod Collins M.D. [address] [place] [phone] Anemia Iron Deficiency (Primary Dx); Osteoporosis Social [...] often do you attend chur ch or tenriism services? 1 to 4 times per year [...] Answer Date Recorded PHQ-2 Score 1 08/15/2022 [facility] - Occupational [...] your living situation today? I have a [facility] place to live 04/10/2023 Education Answer Date Recorded What is the highest level of school you have completed or the highest degree you have received? 12th grade 04/14/2019 Sex and Gender Information Value Date Recorded Sex Assigned at Female 10/24/2023 10:51 PM CEMENT MASON HELPER Gender Identity Female 02/10/2019 11:51 AM CDT Sexual Orientation Straight 02/10/2019 11 :51 AM CDT documented as of this encounter Plan of Treatment Upcoming Encounters Date Type Department Care Team (Late st Contact Info) Description 03/17/2024 9:15 AM CDT Clinical Support Department of Physical Medicine and Rehabilitation in [place], [place] [address] [place] [address] Rod Collins M.D. [address] [place] [address] Elana Winters, P.T. [address] [place] [address] 03/24/2024 12:45 PM CDT Clinical Support Department of Physical Medicine and Rehabilitation in [place], [place] [address] [place] [address] Rod Collins M.D. [address] [place] [phone] Elana Winters, P.T. [facility] [place] [address] 03/31/2024 12:45 PM CDT Clinical Support Department of Physical Medicine and Rehabilitation in [place], [place] [address] [place] [address] Rod Collins M.D. [address] [place] [phone] Elana Winters, P.T. [address] [place] [phone] 04/07/2024 12:45 PM CDT Clinical Support Department of Physical Medicine and Rehabilitation in [place], [place] [address] [place] [address] Rod Collins M.D. [address] [place] [phone] Elana Winters P, P.T. [address] [place] [phone] 04/14/2024 12:45 PM CDT Clinical Support Department of Physical Medicine and Rehabilitation in [place], [place] [address] [place] [address] Rod Collins M.D. [address] [place] [phone] Elana Winters, P.T. [address] [place] [phone] 04/21/2024 12:45 PM CDT Clinical Support Department of Physical Medicine and Rehabilitation in [place], [place] [address] [place] [address] Rod Collins M.D. [address] [place] [phone] Elana Winters P, P.T. [address] [place] [phone] 04/28/2024 12:45 PM CDT Clinical Support Department of Physical Medicine and Rehabilitation in [place], [place] [address] [place] [address] Rod Collins M.D. [address] [place] [phone] Elana Winters, P.T. [address] [place] [phone] documented as of this encounter Visit Diagnoses Diagnosis Anemia Iron Deficiency- Primary Osteoporosis documented in this encounter Additional Health Concerns Assessment Noted Time PHQ-9 Depression Total Score: 6 08/15/20 22 2:06 AM CEMENT MASON HELPER documented as of this encounter Care Teams Senior It Engineer Relationship Specialty Start Date End Date Erinn Reina M.D. [address] [place] [address] [place] [address] PCP - General Family Medicine 09/08/21 documented as of this encounter
--- OUTSIDE RECORDS SUMMARY | 2024-03-14 11:36 | XMS_ITS | Encounter Summary ---
[facility] Address [address] [place] [address] Care Team Providers Care Dedicated Local Truck Driver Name Role Phone Erinn Reina M.D. Primary Care Provider [phone] Reason for Visit * Physical Therapy (Routine) - Canceled Specialty Diagnoses / Procedures Referred By Osorio guevara Referred To Contact Diagnoses Fibromyalgia Pain Low Back Unspecified Procedures PT Ongoing treatment Tony Schwartz P.AAnn-Marie-CAnn-Marie [address] [place] [address] [facility] Region Referral ID Status Reason Start Date Expiration Date V isits Requested Visits Authorized [id number] Canceled 06/07/2023 06/06/2024 99 99 Encounter Details Date Type Department Care Team (Latest Contact Info) Description 02/04/2024 10:00 AM CDT Clinical Support Department of Physical Medicine and Rehabilitation in [place], [place] [address] [place] [phone] Tony Schwartz, PAnn-MarieA.-CAnn-Marie [address] [place] [phone] Elana Griffin, P.TAnn-Marie [address] [place] [phone] Fibromyalgia (Primary Dx); Pain Low Back Unspecified [...] How often do you attend chur or synagogue services? 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 Patient verbalizes she remembers the exercises. [facility]: [email or web address] Access Code: [email or web address] Patient reports fair HEP [...] Department of Physical Medicine and Rehabilitation in [place], [place] [address] [place] [address] Rod Collins M.D. [address] [place] [address] Elana Griffin P.T. [address] [place] [phone] 03/24/2024 12:45 PM CDT Clinical Support Department of Physical Medicine and Rehabilitation in [place], [place] [address] [place] [address] Rod Collins M.D. [address] [place] [phone] Elana Griffin P, P.T. [address] [place] [address] 03/31/2024 12:45 PM CDT Clinical Support Department of Physical Medicine and Rehabilitation in [place], [place] [address] [place] [address] Rod Collins M.D. [address] [place] [phone] Elana Griffin P, P.T. [address] [place] [phone] 04/07/2024 12:45 PM CDT Clinical Support Department of Physical Medicine and Rehabilitation in [place], [place] [address] [place] [address] Rod Collins M.D. [address] [place] [phone] Elana Griffin P, P.T. [address] [place] [phone] 04/14/2024 12:45 PM CDT Clinical Support Department of Physical Medicine and Rehabilitation in [place], [place] [address] [place] [address] Rod Collins M.D. [address] [place] [phone] Elana Griffin P, P.T. [address] [place] [phone] 04/21/2024 12:45 PM CDT Clinical Support Department of Physical Medicine and Rehabilitation in [place], [place] [address] [place] [address] Rod Collins M.D. [address] [place] [phone] Elana Griffin P, P.T. [address] [place] [address] 04/28/2024 12:45 PM CDT Clinical Support Department of Physical Medicine and Rehabilitation in [place], [place] [address] [place] [address] Rod Collins M.D. [address] [place] [phone] Elana Griffin P, P.T. [address] [place] [phone] documented as of this encounter Visit Diagnoses Diagnosis Fibromyalgia- Primary Pain Low Back Unspecified documented in this encounter Additional Health Concerns Assessment Noted Time PHQ-9 Depression Total Score: 6 08/15/20 22 2:06 AM SCHOOL PSYCHOLOGIST documented as of this encounter Care Teams Dedicated Local Truck Driver Relationship Specialty Start Date End Date Erinn Reina M.D. [address] [place] [phone] PCP - General Family Medicine 09/08/21 documented as of this encounter
--- OUTSIDE RECORDS SUMMARY | 2024-03-14 11:36 | XMS_ITS | Encounter Summary ---
Author Organization [facility] Address [address] [place] [address] Care Team Providers Care Clearance Representative Name Role Phone Erinn Reina M.D. Primary Care Provider Reason for Referral * Physical Therapy (Routine) - Authorized Specialty Diagnoses / Procedures Referred By Osorio guevara Referred To Contact Diagnoses Osteoporosis Pain Low Back Unspecified Pain Back Procedures PT Ongoing treatment Rod Collins M.D. [address] [place] [address] [facility] Region Referral ID Status Reason Start Date Expiration Date V isits Requested Visits Authorized [id number] Authorized 02/18/2024 02/17/2025 99 99 Reason for Visit * Physical Therapy (Routine) - Authorized Specialty Diagnoses / Procedures Referred By Osorio guevara Referred To Contact Diagnoses Osteoporosis Pain Low Back Unspecified Pain Back Procedures PT Evaluate and treat Rod Collins M.D. [address] [place] [address] [facility] Region Referral ID Status Reason Start Date Expiration Date V isits Requested Visits Authorized [id number] Authorized 02/05/2024 02/04/2025 99 99 Encounter Details Date Type Department Care Team (Latest Contact Info) Description 02/18/2024 10:45 AM CDT Comprehensive Visit Department of Physical Medicine and Rehabilitation in [place], [place] [address] [place] [phone] Rod Collins M.D. [address] [place] [address] Elana Winters, P.T. [address] [place] [phone] Pain Back (Primary Dx); Osteoporosis; Pain Low [...] any clubs o r organizations such as bahai groups, unions, fraternal or athletic groups, or [...] Score 1 08/15/2022 [facility] - Occupational Stress Questionnaire Answer [...] Sex Assigned at Female 10/24/2023 10:51 PM SOFTWARE ENGINEER WEB SERVICES Gender Identity Female 02/10/2019 11:51 AM CDT [...] AND B / Product Type: Medicare / iSentium Visit Count: 1 PERTINENT MEDICAL / SURGICAL [...] With Loss Of Consciousness Of Unspecified Duration Initial([facility]) Follow Up Examination Status Post Surgery Nodule [...] Procedure: STENT GRAFT ENDOVASCULAR THORACOABDOMINAL AORTA, JENNIFER [id number], Endovascular repair complex abdominal aortic aneurysm using [...] Function/Occupational Profile: Prior Mobility/Functional Transfers Level of Phillips: Modified independent Gait Devices/Wheelchair Used: Manual wheelchair Gait Devices/Wheelchair Used Comments: In community for long events Prior Function/Occupational Profile Dominant Hand: Right Lives With: Alone Receives Help From: board attendant, Family ADL Assistance: Modified independent ADL Assistance Comments: Patient requires some assistance with dressing depending on the day and can make simple meals for herself. IADL/Homemaking Assistance: Required assistance IADL/Homemaking Assistance Comments: Patient has TRANSCRIPT EVALUATOR perform tasks along with family Driving: Does not drive Driving Comments: TRANSCRIPT EVALUATOR drives patient to appointments. Leisure Interests: Patient [...] pleasant female who presents today with her TRANSCRIPT EVALUATOR present. Posture: In stance patient demonstrates a [...] for optimal recovery of mobility. In addition hzvy-ag-[id number] glides attempted throughoutthe thoracic region and passive extension mobilization performed for recovery of posture grade 2 progressing up to a grade 3 oscillating as tolerated. Therapeutic Exercise: Passive range of motion of the right shoulder region and left shoulder regionperformed with flexion, abduction, external rotation as tolerated with resistance to external rotation bilaterally x5 Home Exercise Program/Education: [email or web address] Access Code: [email or web address] Assessment Clinical Impression: Patient [...] Department of Physical Medicine and Rehabilitation in [place], [place] [address] [place] [address] Rod Collins M.D. [address] [place] [address] Elana Winters, P.T. [address] [place] [phone] 03/24/2024 12:45 PM CDT Clinical Support Department of Physical Medicine and Rehabilitation in [place], [place] [address] [place] [address] Rod Collins M.D. [address] [place] [phone] Elana Winters P, P.T. [address] [place] [phone] 03/31/2024 12:45 PM CDT Clinical Support Department of Physical Medicine and Rehabilitation in [place] [address] [place] [address] Rod Collins M.D. [address] [place] [phone] Elana Winters P, P.T. [address] [place] [phone] 04/07/2024 12:45 PM CDT Clinical Support Department of Physical Medicine and Rehabilitation in [place], [place] [address] [place] [address] Rod Collins M.D. [address] [place] [phone] Elana Winters P, P.T. [address] [place] [phone] 04/14/2024 12:45 PM CDT Clinical Support Department of Physical Medicine and Rehabilitation in [place], [place] [address] [place] [address] Rod Collins M.D. [address] [place] [phone] Elana Winters, P.T. [address] [place] [address] 04/21/2024 12:45 PM CDT Clinical Support Department of Physical Medicine and Rehabilitation in [place], [place] [address] [place] [address] Rod Collins M.D. [address] [place] [phone] Elana Winters, P.T. [address] [place] [address] 04/28/2024 12:45 PM CDT Clinical Support Department of Physical Medicine and Rehabilitation in [place], [place] [address] [place] [address] Rod Collins M.D. [address] [place] [phone] Elana Winters, P.T. [address] [place] [phone] documented as of this encounter Visit Diagnoses Diagnosis Pain Back- Primary Osteoporosis Pain Low Back Unspecified documented in this encounter Additional Health Concerns Assessment Noted Time PHQ-9 Depression Total Score: 6 08/15/20 22 2:06 AM SOFTWARE ENGINEER WEB SERVICES documented as of this encounter Care Teams Clearance Representative Relationship Specialty Start Date End Date Erinn Reina M.D. [address] [place] [address] [place] [address] PCP - General Family Medicine 09/08/21 documented as of this encounter
--- OUTSIDE RECORDS SUMMARY | 2024-03-14 11:36 | XMS_ITS | Encounter Summary ---
Author Organization [facility] Address [address] [place] [address] Care Team Providers Care Family Service Counselor Name Role Phone Erinn Reina M.D. Primary Care Provider [phone] Reason for Visit * Reason Onset Date Comments [employer] form 02/19/2024 Encounter Details Date Type Department Care Team (Latest Contact Info) Description 02/19/2024 Clinical Communication Division of Pulmonary Medicine in [place], [place] [address] [place] [phone] Seun Bey M.D. [address] [place] [phone] [employer] form Social History Tobacco Use [...] declined 03/05/2022 How often do you attend [facility] or episcopalian services? 1 to 4 times per year 03/05/2022 Do you belong to any clubs o r organizations such as baptism groups, unions, fraternal or athletic groups, or [...] Date Recorded PHQ-2 Score 1 08/15/2022 [facility] of Occupat ional Health [...] your living situation today? I have a [facility] place to live 04/10/2023 Education Answer Date Recorded What is the highest level of school you have completed or the highest degree you have received? 12th grade 04/14/2019 Sex and Gender Information Value Date Recorded Sex Assigned at Female 10/24/2023 10:51 PM SENIOR PRINCIPAL PROCESS ENGINEER Gender Identity Female 02/10/2019 11:51 AM CDT [...] she will be faxing a form from [employer] stating that she is on oxygen. Action Requested: Fill out form once we receive it. Additional Notes: Will let you know once I get it. documented in this encounter Plan of Treatment Upcoming Encounters Date Type Department Care Team (Late st Contact Info) Description 03/17/2024 9:15 AM CDT Clinical Support Department of Physical Medicine and Rehabilitation in [place] [address] [place] [address] Rod Collins M.D. [address] [place] [phone] Elana Winters P, P.T. [facility] [place] [address] 03/24/2024 12:45 PM CDT Clinical Support Department of Physical Medicine and Rehabilitation in [place] [address] [place] [address] Rod Collins M.D. [address] [place] [phone] Elana Winters P, P.T. [facility] [place] [address] 03/31/2024 12:45 PM CDT Clinical Support Department of Physical Medicine and Rehabilitation in [place], [place] [address] [place] [address] Rod Collins M.D. [address] [place] [phone] Elana Winters P, P.T. [address] [place] [phone] 04/07/2024 12:45 PM CDT Clinical Support Department of Physical Medicine and Rehabilitation in [place], [place] [address] [place] [address] Rod Collins M.D. [address] [place] [phone] Elana Winters, P.T. [facility] [place] [address] 04/14/2024 12:45 PM CDT Clinical Support Department of Physical Medicine and Rehabilitation in [place], [place] [address] [place] [address] Rod Collins M.D. [address] [place] [phone] Elana Winters, P.T. [address] [place] [phone] 04/21/2024 12:45 PM CDT Clinical Support Department of Physical Medicine and Rehabilitation in [place], [place] [address] [place] [address] Rod Collins M.D. [address] [place] [phone] Elana Winters P, P.T. [address] [place] [phone] 04/28/2024 12:45 PM CDT Clinical Support Department of Physical Medicine and Rehabilitation in [place], [place] [address] [place] [address] Rod Collins M.D. [address] [place] [phone] Elana Winters, P.T. [address] [place] [phone] documented as of this encounter Visit Diagnoses Not on filedocumented in this encounter Additional Health Concerns Assessment Noted Time PHQ-9 Depression Total Score: 6 08/15/20 22 2:06 AM SENIOR PRINCIPAL PROCESS ENGINEER documented as of this encounter Care Teams Family Service Counselor Relationship Specialty Start Date End Date Erinn Reina M.D. [address] [place] [phone] PCP - General Family Medicine 09/08/21 documented as of this encounter
--- OUTSIDE RECORDS SUMMARY | 2024-03-14 11:36 | XMS_ITS | Encounter Summary ---
Author Organization [facility] Address [address] [place] [address] Care Team Providers Care Chart Computer Name Role Phone Erinn Reina M.D. Primary Care Provider Encounter Details Date Type Department Care Team (Late st Contact Info) Description 01/29/2024 Clinical Communication Department of Family Medicine, [facility], in [place], [place] [address] [place] [address] Erinn Reina M.D. [address] [place] [address] Social History Tobacco Use Types [...] How often do you attend chur or christianity services? 1 to 4 times per year 03/05/2022 Do you belong to any clubs o r organizations such as congregational groups, unions, fraMinutizer or athletic groups, or school groups? No [...] [facility] of Occupat ionvt Health - Occupational Stress Questionnaire Answer Date [...] your living situation today? I have a [facility] place to live 04/10/2023 Education Answer Date Recorded What is the highest level of school you have completed or the highest degree you have received? 12th grade 04/14/2019 Sex and Gender Information Value Date Recorded Sex Assigned at Female 10/24/2023 10:51 PM REFRESH TECHNICIAN Gender Identity Female 02/10/2019 11:51 AM CDT Sexual Orientation Straight 02/10/2019 11 :51 AM CDT documented as of this encounter Plan of Treatment Upcoming Encounters Date Type Department Care Team (Late st Contact Info) Description 03/17/2024 9:15 AM CDT Clinical Support Department of Physical Medicine and Rehabilitation in [place], [place] [address] [place] [address] Rod Collins M.D. [address] [place] [address] Elana Winters, P.T. [address] [place] [address] 03/24/2024 12:45 PM CDT Clinical Support Department of Physical Medicine and Rehabilitation in [place], [place] [address] [place] [address] Rod Collins M.D. [address] [place] [phone] Elana Winters P, P.T. [address] [place] [phone] 03/31/2024 12:45 PM CDT Clinical Support Department of Physical Medicine and Rehabilitation in [place], [place] [address] [place] [address] Rod Collins M.D. [address] [place] [phone] Elana Winters, P.T. [address] [place] [phone] 04/07/2024 12:45 PM CDT Clinical Support Department of Physical Medicine and Rehabilitation in [place], [place] [address] [place] [address] Rod Collins M.D. [address] [place] [phone] Elnaa Winters, P.T. [address] [place] [phone] 04/14/2024 12:45 PM CDT Clinical Support Department of Physical Medicine and Rehabilitation in [place], [place] [address] [address] Rod Collins M.D. [address] [place] [phone] Elana Winters P, P.T. [address] [place] [phone] 04/21/2024 12:45 PM CDT Clinical Support Department of Physical Medicine and Rehabilitation in [place], [place] [address] [place] [address] Rod Collins M.D. [address] [place] [address] Elana Winters P, P.T. [address] [place] [address] 04/28/2024 12:45 PM CDT Clinical Support Department of Physical Medicine and Rehabilitation in [place], [place] [address] [place] [address] Rod Collins M.D. [address] [place] [address] Elana Winters, P.T. [address] [place] [phone] Scheduled Orders Name Type Priority Associated Diagnoses Orde r Schedule PUL Home Overnight Oximetry PFT Routine Abnormal Oximetry Expected: 01/29/2024, Expires: 04/29/2025 documented as of this encounter Visit Diagnoses Diagnosis Pain Back- Primary Fracture Vertebra Compression Thoracic Closed Initial (HCC) Abnormal Oximetry documented in this encounter Additional Health Concerns Assessment Noted Time PHQ-9 Depression Total Score: 6 08/15/20 22 2:06 AM REFRESH TECHNICIAN documented as of this encounter Care Teams Chart Computer Relationship Specialty Start Date End Date Erinn Reina M.D. [address] [place] [address] [place] [address] PCP - General Family Medicine 09/08/21 documented as of this encounter
--- OUTSIDE RECORDS SUMMARY | 2024-03-14 11:36 | XMS_ITS | Encounter Summary ---
Author Organization [facility] Address [address] [place] [address] Care Team Providers Care Manager Ent Name Role Phone Erinn Reina M.D. Primary Care Provider [phone] Reason for Referral * Physical Therapy (Routine) - Authorized Specialty Diagnoses / Procedures Referred By Osorio guevara Referred To Contact Diagnoses Osteoporosis Pain Low Back Unspecified Pain Back Procedures PT Evaluate and treat Rod Collins M.D. [address] [place] [address] [facility] Region Referral ID Status Reason Start Date Expiration Date V isits Requested Visits Authorized [id number] Authorized 02/05/2024 02/04/2025 99 99 Encounter Details Date Type Department Care Team (Late st Contact Info) Description 02/05/2024 Orders Only Division of Endocrinology in [place], [place] [address] [place] [phone] Rod Collins M.D. [address] [place] [phone] Osteoporosis (Primary Dx); Pain Low Back Unspecified; [...] declined 03/05/2022 How often do you attend [facility] or congregation services? 1 to 4 times per year 03/05/2022 Do you belong to any clubs o r organizations such as anglican groups, unions, fraternal or athletic groups, or [...] Answer Date Recorded PHQ-2 Score 1 08/15/2022 [facility] [place] of Occupat ional Health - Occupational Stress [...] your living situation today? I have a [facility] place to live 04/10/2023 Education Answer Date Recorded What is the highest level of school you have completed or the highest degree you have received? 12th grade 04/14/2019 Sex and Gender Information Value Date Recorded Sex Assigned at Female 10/24/2023 10:51 PM FACING END TRIMMER Gender Identity Female 02/10/2019 11:51 AM CDT Sexual Orientation Straight 02/10/2019 11 :51 AM CDT documented as of this encounter Plan of Treatment Upcoming Encounters Date Type Department Care Team (Late st Contact Info) Description 03/17/2024 9:15 AM CDT Clinical Support Department of Physical Medicine and Rehabilitation in [place], [place] [address] [address] Rod Collins M.D. [address] [place] [phone] Elana Winters P, P.T. [address] [place] [phone] 03/24/2024 12:45 PM CDT Clinical Support Department of Physical Medicine and Rehabilitation in [place], [place] [address] [address] Rod Collins M.D. [address] [place] [phone] Elana Winters P, P.T. [address] [place] [phone] 03/31/2024 12:45 PM CDT Clinical Support Department of Physical Medicine and Rehabilitation in [place], [place] [address] [place] [address] Rod Collins M.D. [address] [place] [phone] Elana Winters P, P.T. [address] [place] [phone] 04/07/2024 12:45 PM CDT Clinical Support Department of Physical Medicine and Rehabilitation in [place], [place] [address] [address] Rod Collins M.D. [address] [place] [phone] Elana Winters, P.T. [address] [place] [phone] 04/14/2024 12:45 PM CDT Clinical Support Department of Physical Medicine and Rehabilitation in [place], [place] [address] [place] [address] Rod Collnis M.D. [address] [place] [phone] Elana Winters P, P.T. [address] [place] [phone] 04/21/2024 12:45 PM CDT Clinical Support Department of Physical Medicine and Rehabilitation in [place], [place] [address] [place] [address] Rod Collins M.D. [address] [place] [phone] Elana Winters P, P.T. [address] [place] [phone] 04/28/2024 12:45 PM CDT Clinical Support Department of Physical Medicine and Rehabilitation in [place], [place] [address] [place] [phone] Rod Collins M.D. [address] [place] [phone] Elana Winters P, P.T. [address] [place] [phone] documented as of this encounter Visit Diagnoses Diagnosis Osteoporosis- Primary Pain Low Back Unspecified Pain Back documented in this encounter Additional Health Concerns Assessment Noted Time PHQ-9 Depression Total Score: 6 08/15/20 22 2:06 AM FACING END TRIMMER documented as of this encounter Care Teams Manager Ent Relationship Specialty Start Date End Date Erinn Reina M.D. [address] [place] [phone] PCP - General Family Medicine 09/08/21 documented as of this encounter
--- OUTSIDE RECORDS SUMMARY | 2024-03-14 11:36 | XMS_ITS | Referral Summary ---
Author Organization [facility] Address [address] [place] [address] Care Team Providers Care Insurance Sales Executive Name Role Phone Erinn Reina M.D. Primary Care Provider [phone] Source Comments Patient records contain information from all sites at [facility]. For routine questions regarding patient records, call [phone] during business hours, M-F 8:00 AM - 5:00 PM Central Time. Record requests for emergency care only can be directed to [phone] at any time.[facility] Encounters Date Type Department Care Team Description 03/10/2024 9:15 AM CDT Clinical Support Department of Physical Medicine and Rehabilitation in [place], [place] [address] [place] [address] Rod Collins M.D. Ambroz, Colleen P, P.T. Pain Low Back Unspecified (Primary Dx); Osteoporosis; Pain Back 03/04/2024 1:30 PM CDT Office Visit Division of Pulmonary Medicine in [place], [place] [address] [place] [phone] Arjun Umana M.D. Chronic Obstructive Pulmonary Disease (HCC) (Primary Dx); Hypertension Pulmonary (HCC); Chronic Right Heart Failure (HCC); Nicotine Dependence Cigarettes; Abdominal Pain 02/19/2024 Clinical Communication Division of Pulmonary Medicine in [place], [place] [address] [place] [phone] Seun Bey M.D. Xcell energy form 02/18/2024 10:45 AM CDT Comprehensive Visit Department of Physical Medicine and Rehabilitation in [place], [place] [address] [place] [address] Rod Collins M.D. Ambroz, Colleen P, P.T. Pain Back (Primary Dx); Osteoporosis; Pain Low Back Unspecified 02/05/2024 Orders Only Division of Endocrinology in [place], [place] [address] [place] [address] Rod Collins M.D. Osteoporosis (Primary Dx); Pain Low Back Unspecified; Pain Back 02/04/2024 Clinical Communication Division of Endocrinology in [place], [place] [address] [place] [address] Rod Collins M.D. 02/04/2024 10:00 AM CDT Clinical Support Department of Physical Medicine and Rehabilitation in [place], [place] [address] [place] [address] Tony Schwartz P.A.-C. Ambroz, Colleen P, P.T. Fibromyalgia (Primary Dx); Pain Low Back Unspecified 02/01/2024 Orders Only Division of Endocrinology in [place], [place] [address] [place] [address] Rod Collins M.D. Anemia Iron Deficiency (Primary Dx); Osteoporosis 01/29/2024 Clinical Communication Department of Family Medicine, [facility], in [place], [place] [address] [place] [address] Erinn Reina M.D. 01/29/2024 10:45 AM CDT Clinical Support Department of Physical Medicine and Rehabilitation in [place], [place] [address] [place] [address] Tony Schwartz P.A.-CElana Garcia, P.T. Fibromyalgia (Primary Dx); Pain Low Back Unspecified 01/28/2024 9:00 AM CDT Comprehensive Visit Division of Endocrinology in [place], [place] [address] [place] [address] Jesus Feng APRN, C.N.P. Toro Tobon, David, M.D. Osteoporosis (Primary Dx); Pain Back; Fracture Vertebra Compression Thoracic Closed Initial (HCC) 01/17/2024 12:45 PM CDT Clinical Support Department of Physical Medicine and Rehabilitation in [place], [place] [address] [place] [address] Tony Schwartz P.A.-C. Ambroz, Colleen P, P.T. Fibromyalgia (Primary Dx); Pain Low Back Unspecified 01/15/2024 11:30 AM CDT - 01/15/2024 11:59 PM CDT Hospital Encounter Department of Laboratory Medicine in [address] [address] Vitor Calle M.D. Dyspnea Multifactorial; Anemia Iron Deficiency Discharge Disposition: Home or Self Care 01/09/2024 Orders Only Department of Vascular Medicine in [place], [place] [address] [place] [address] Tony Schwartz P.A.-C. Anemia Iron Deficiency (Primary Dx) 01/08/2024 11:30 AM CDT Office Visit Department of Cardiovascular Diseases in [place], [place] [address] [place] [address] Vitor Calle M.D. Dyspnea Multifactorial (Primary Dx) 01/07/2024 Orders Only [facility] Erinn Johnson M.D. 01/06/2024 12:30 PM CDT Clinical Support Department of Physical Medicine and Rehabilitation in [place], [place] [address] [place] [phone] Tony Schwartz P.A.-C. Ambroz, Colleen P, P.T. Fibromyalgia; Pain Low Back Unspecified 01/02/2024 9:15 AM CDT Clinical Support Department of Physical Medicine and Rehabilitation in [place], [place] [address] [place] [phone] Tony Schwartz P.A.-C. Ambroz, Colleen P, P.T. Fibromyalgia (Primary Dx); Pain Low Back Unspecified 01/01/2024 1:14 PM CDT - 01/01/2024 11:59 PM CDT Hospital Encounter Department of Cardiovascular Diseases in [place], [place] [address] [place] [address] Vitor Calle M.D. Dilated Aortic Root (HCC); Dyspnea Multifactorial Discharge Disposition: Home or Self Care 12/26/2023 10:45 AM CDT Clinical Support Department of Physical Medicine and Rehabilitation in [place], [place] [address] [place] [address] Tony Schwartz P.A.-C. Ambroz, Colleen P, P.T. [...] 30- 60py cumulative smoking history. Her primary pusher runner is Dr. Thorpe. In Nov 2021, she [...] How often do you attend chur or islam services? 1 to 4 times [...] Answer Date Recorded PHQ-2 Score 1 08/15/2022 [facility] [place] of Occupat ional Health - Occupational Stress [...] Sex Assigned at Female 10/24/2023 10:51 PM DAILY SALES AUDIT CLERK Gender Identity Female 02/10/2019 11:51 AM CDT Sexual Orientation Straight 02/10/2019 11 :51 AM CDT Last Filed Vital Signs Vital Sign Reading Time Taken Comments Blood Pressure 105/74 03/04/2024 1:14 PM CDT Pulse 111 03/04/2024 1:14 PM CDT Temperature 36.6 ??C (97.8 ??F) 03/04/2024 1 :14 PM CDT Respiratory Rate 18 12/03/2022 3:20 PM DAILY SALES AUDIT CLERK Oxygen Saturation 73% 03/04/2024 1:1 4 PM [...] Department of Physical Medicine and Rehabilitation in [place], [place] [address] [place] [address] Rod Collins M.D. [address] [place] [address] Elana Winters P, P.T. [address] [place] [address] 03/24/2024 12:45 PM CDT Clinical Support Department of Physical Medicine and Rehabilitation in [place], [place] [address] [place] [address] Rod Collins M.D. [address] [place] [address] Elana Winters P, P.T. [address] [place] [phone] 03/31/2024 12:45 PM CDT Clinical Support Department of Physical Medicine and Rehabilitation in [place], [place] [address] [place] [address] Rod Collins M.D. [address] [place] [phone] Elana Winters P, P.T. [address] [place] [phone] 04/07/2024 12:45 PM CDT Clinical Support Department of Physical Medicine and Rehabilitation in [place], [place] [address] [place] [address] Rod Collins M.D. [address] [place] [phone] Elana Winters P, P.T. [address] [place] [phone] 04/14/2024 12:45 PM CDT Clinical Support Department of Physical Medicine and Rehabilitation in [place] [address] [place] [address] Rod Collins M.D. [address] [place] [phone] Elana Winters P, P.T. [address] [place] [phone] 04/21/2024 12:45 PM CDT Clinical Support Department of Physical Medicine and Rehabilitation in [place] [address] [place] [address] Rod Collins M.D. [address] [place] [phone] Ambroz, Elana P, P.T. [address] [place] [address] 04/28/2024 12:45 PM CDT Clinical Support Department of Physical Medicine and Rehabilitation in [place], [place] [address] [place] [address] Rod Collins M.D. [address] [place] [address] Elana Winters P.T. [address] [place] [address] Medical Devices Implanted Type Area Report Checker Device Identifier Shelf Expiration Date Model / Serial / Lot Stnt Visi Pro Otw [id number] - [id number] Implanted:Qt y: 1 on 05/04/2019 by Tyson Liao M.D. at [facility] Biliary Stent N/A: Arterial Medtronic 09/24/2019 [id number] / / [id number] Description:SMA #2 Stnt Visi Pro Otw [id number] - [id number] Implanted:Qt y: 1 on 05/04/2019 by Tyson Liao M.D. at [facility] Biliary Stent Right: Arterial [employer]tronic 03/23/2021 [id number] / / [id number] Description:Celiac Artery #2 Stnt Icast Atrm Cov [id number] - [id number] - [id number] Implanted:Qt y: 1 on 05/04/2019 by Tyson Liao M.D. at [facility] Respiratory Stent Right: Arterial Atrium 02/18/2022 [id number] / [id number] / Description:Right Renal Emma ry Stnt Icast Atrm Cov 8b62t286 - [id number] - [id number] Implanted:Qt y: 1 on 05/04/2019 by Tyson Liao M.D. at [facility] Respiratory Stent Right: Arterial Atrium 02/06/2022 [id number] / [id number] / Description:Left renal arter y Stnt Icast Atrm Cov [id number] - [id number] - [id number] Implanted:Qt y: 1 on 05/04/2019 by Tyson Liao M.D. at [facility] Respiratory Stent Right: Arterial Atrium 03/27/2022 [id number] / [id number] / Description:SMA Stnt Icast Atrm Cov [id number] - [id number] - [id number] Implanted:Qt y: 1 on 05/04/2019 by Tyson Liao M.D. at [facility] Respiratory Stent Right: Arterial Atrium 01/29/2022 [id number] / [id number] / Description:Left renal arter y Stnt Icast Atrm Cov 5b64t803 - [id number] - [id number] Implanted:Qt y: 1 on 05/04/2019 by Tyson Liao M.D. at [facility] Respiratory Stent Right: Arterial Atrium 03/27/2022 [id number] / [id number] / Description:Celiac Artery Yxs-Fodycy-Q enestrated-P natali Stent Graft Implanted:Qt y: 1 on 05/04/2019 by Tyson Liao M.D. at [facility] Stent Other N/A: Aorta [employer] [id number] 03/23/2022 [id number] / / [id number] Aaa-Bifurcat ed-Graft Implanted:Qt y: 1 on 05/04/2019 by Tyson Liao M.D. at [facility] Stent Other N/A: Aorta [employer] [id number] 03/17/2022 [id number] / / [id number] Grft Znt Ilc Ext [id number] - [id number] Implanted:Qt y: 1 on 05/04/2019 by Tyson Liao M.D. at [facility] Vascular Graft Left: Arterial [employer] 12/02/2021 [id number] / / [id number] Description:Left Iliac Stnt Margaret Otw [id number] - [id number] Implanted:Qt y: 1 on 05/04/2019 by Tyson Liao M.D. at [facility] Vascular Stent Right: Arterial [employer] 11/03/2020 [id number] / / [id number] Description:Right Renal Emma ry Procedures Procedure Name Priority Date/Time Associated Diagnosis Comments ARTERIAL BLOOD GAS - PULMONARY CLINIC Routine 03/04/2024 2:42 PM CDT Chronic Obstructive Pulmonary Disease (HCC) TISSUE TRANSGLUTAMINASE (TTG) AB, IGA, S Routine 01/28/2024 10:16 AM CDT AK T4 FREE Routine 01/28/2024 10:16 AM CDT [...] BILATERAL WITH TOMOSYNTHESIS Routine 09/16/2019 10:48 AM DAILY SALES AUDIT CLERK CT CHEST WITHOUT IV CONTRAST Routine 08/2019 10:02 AM DAILY SALES AUDIT CLERK from Last 3 Months or Most Recently [...] 2.0 mmol/L 03/04/2024 3:17 PM CDT DTL Edwadrs 0.00 03/04/2024 3:17 PM CDT DTL Activity Time 13.0 min 03/04/2024 3:17 PM CDT DTL Subcutaneous Lidocaine 0.0 mL 03/04/2024 3:17 PM CDT DTL O2 Devices NC 03/04/2024 3:17 PM CDT DTL O2 Flow 1.0 L/min 03/04/2024 3:17 PM CDT DTL Blood (Blood, Arterial) 03/04/2024 2:42 PM CDT 03/04/2024 3:09 PM CDT Arjun Umana M.D. LAB BLOOD ADD-ON [facility] [address] [place] [address], [facility] [address] [place] [address] * Quantitative M-protein Study (01/28/2024 10:16 AM [...] its performance characteristics determined by [facility] in a manner consistent with CLIA requirements. This test has not been cleared or approved by the U.S. Food and Drug Administration. Blood (Blood, Venous) 01/28/2024 10:16 AM CDT 01/28/2024 2:02 PM CDT Narrative [facility] - 01/29/2024 12:53 PM CDT Specimen Information: Specimen ID: [id number] Specimen Type: Blood Specimen Collection Start Date: 01/28/2024 10:16 AM Specimen Received Date: 01/28/2024 ??2:02 PM Specimen ID: [id number] Specimen Type: Blood Specimen Collection Start Date: 01/28/2024 10:16 AM Specimen Received Date: 01/28/2024 ??1:55 PM Rod Perales M.D. LAB BLOOD ADD-ON [facility] [address] [place] [address] [facility] [address] [place] [address] [facility] [place] [address] * T4 (Thyroxine), Free, Serum (01/28/2024 10:16 AM CDT) Pathologist [facility] T4 (Thyroxine), Free, S 1.0 0.9 - 1.7 ng/dL 01/28/2024 11:30 AM CDT DTL Blood 01/28/2024 10:1 6 AM CDT 01/28/2024 10:42 AM CDT Rod Perales M.D. LAB BLOOD ADD-ON [facility] [address] [place] [address], [facility] DTL [facility] [address] [place] [address] * (ABNORMAL) Thyroid Function [place] (01/28/2024 10:16 AM CDT) TSH, Sensitive 4.4(H) 0.3 - 4.2 mIU/L 01/28/2024 11:09 AM CDT DT Blood (Blood, Venous) 01/28/2024 10:16 AM CDT 01/28/2024 10:42 AM CDT Rod Perales M.D. LAB BLOOD ADD-ON [facility] [address] [place] [address], [address] [address] * Celiac Disease Serology [place] (01/28/2024 10:16 AM CDT) Pathologist [facility] Immunoglobulin A (IgA), S 304 61 - 356 mg/dL 01/28/2024 2:56 PM CDT [facility] Celiac Disease Interpretation See Comment: Negative serology. Celiac disease unlikely. However, approximately 10% of patients with celiac disease are seronegative. Also, patients who are already adhering to a gluten-free diet may be seronegative. If celiac disease is highly clinically suspected, consider HLA-DQ typing. 01/28/2024 9:15 PM CDT [facility] Blood (Blood, Venous) 01/28/2024 10:16 AM CDT 01/28/2024 2:02 PM CDT Narrative [facility] - 01/28/2024 9:15 PM CDT Specimen Information: Specimen ID: [id number] Specimen Type: Blood Specimen Collection Start Date: 01/28/2024 10:16 AM Specimen Received Date: 01/28/2024 ??2:02 PM Specimen ID: [id number] Specimen Type: Blood Specimen Collection Start Date: 01/28/2024 10:16 AM Specimen Received Date: 01/28/2024 ??2:00 PM Rod Perales M.D. LAB BLOOD ADD-ON [facility] [address] [place] [address] [facility] [address] [place] [address] [facility] [address] [place] [address] [place] [address] * Thyroperoxidase (TPO) Antibodies (01/28/2024 10:16 AM CDT) Thyroperoxidase Ab, S 18.5 <34.0 IU/mL 01/28/2024 11:30 AM CDT [facility] Blood 01/28/2024 10:1 6 AM CDT 01/28/2024 10:42 AM CDT Rod Perales M.D. LAB BLOOD ADD-ON Performing Organization Address City/[facility]/ZIP Co de Phone Number [facility] [address] [place] [address], [facility] [address] [place] [address] * tTG (Tissue Transglutaminase), Antibody, IgA (01/28/2024 10:16 AM CDT) Tissue Transglutaminase Ab, IgA, S <1.2 <4.0 (Negative ) U/mL 01/28/2024 6:42 PM CDT [facility] Blood 01/28/2024 10:1 6 AM CDT 01/28/2024 3:19 PM CDT Rod Perales M.D. LAB BLOOD ADD-ON [facility] [address] [place] [address] [facility] [address] [place] [address] * Connective Tissue Diseases [place] (01/28/2024 10:16 AM CDT) Antinuclear Ab, S 0.1 <=1.0 (Negative ) U 01/28/2024 7:56 PM CDT [facility] Comment: ----ADDITIONAL INFORMATION---- Method: Enzyme-linked immunoassay using HEp-2 nuclear extract supplemented with purified antigens. Cyclic Citrullinated Peptide Ab, S <15.6 <20.0 (Negative ) U 01/28/2024 6:40 PM CDT [facility] Interpretation SEE COMMENT 7:56 PM T [facility] Comment: Tests for antibodies to dsDNA and DERIC antigens are not performed automatically unless the TERRI result is > or = 3.0 U. ??Studies performed at [facility] indicate that positive TERRI results <3.0 U are rarely accompanied by positive second order tests. Blood (Blood, Venous) 01/28/2024 10:16 AM CDT 01/28/2024 1:59 PM CDT Rod Perales M.D. LAB BLOOD ADD-ON [facility] [address] [place] [address] [facility] [address] [place] [address] * (ABNORMAL) 25-Hydroxyvitamin D2 and D3 (01/28/2024 10:16 AM CDT) [facility] 25-Hydroxy D2 <4.0 ng/mL 01/30/2024 9:01 AM CDT [facility] 25-Hydroxy D3 18 ng/mL 01/30/2024 9:01 AM T [facility] 25-Hydroxy D Total 18(L) ng/mL 2023 9:01 AM [facility] Comment: Interpretation: 10-19 ng/mL (mild to moderate deficiency) ----REFERENCE VALUE---- 25-HYDROXY D TOTAL (D2+D3) Optimum levels in the healthy population are 20-50. ----ADDITIONAL INFORMATION---- This test was developed and its performance characteristics determined by [facility] in a manner consistent with CLIA requirements. This test has not been cleared or approved by the U.S. Food and Drug Administration. Blood (Blood, Venous) 01/28/2024 10:16 AM CDT 01/28/2024 1:32 PM CDT Rod Perales M.D. LAB BLOOD ADD-ON [facility] [address] [place] [address] [facility] [address] [place] [address] [place] [address] * Dehydroepiandrosterone Sulfate (DHEA-S) (01/28/2024 10:16 AM CDT) Dehydroepiandrosterone Sulfate, S 72 5.3 - 124 mcg/dL 01/28/2024 3:53 PM CDT [facility] Blood (Blood, Venous) 01/28/2024 10:16 AM CDT 01/28/2024 2:58 PM CDT Rod Perales M.D. LAB BLOOD ADD-ON Performing Organization Address City/[facility] Co de Phone Number [facility] [address] [place] [address] [facility] [address] [place] [address] * Sedimentation Rate (01/28/2024 10:16 AM CDT) Sedimentation Rate, B 8 3 - 28 mm/h 01/28/2024 11:48 AM CDT [facility] Blood (Blood, Venous) 01/28/2024 10:16 AM CDT 01/28/2024 10:30 AM CDT Rod Perales M.D. LAB BLOOD ADD-ON [facility] [address] [place] [address], [facility] [address] [place] [address] * (ABNORMAL) CBC with Differential, Blood (01/28/2024 [...] CDT Rod Perales M.D. LAB BLOOD ADD-ON [facility] [address] [place] [address], [facility] DTL [facility] [address] [place] [address] [facility] [address] [place] [address] * Rheumatoid Factor (01/28/2024 10:16 AM CDT) Pathologist [facility] Rheumatoid Factor, S <15 <15 IU/mL 01/28/2024 3:40 PM CDT [facility] Blood (Blood, Venous) 01/28/2024 10:16 AM CDT 01/28/2024 3:01 PM CDT Rod Perales M.D. LAB BLOOD ADD-ON [facility] [address] [place] [address] [facility] [address] [place] [address] * CRP (C-Reactive Protein) (01/28/2024 10:16 AM CDT) [facility] C-Reactive Protein (CRP), S <3.0 <5.0 mg/L 01/28/2024 11:09 AM CDT DT Blood (Blood, Venous) 01/28/2024 10:16 AM CDT 01/28/2024 10:42 AM CDT Rod Perales M.D. LAB BLOOD ADD-ON [facility] [address] [place] [address], [facility] [address] [place] [address] * Ferritin (01/28/2024 10:16 AM CDT) Only the most recent of2 resultswithin the time period is included. Pathologist [facility] Ferritin, S 262 11 - 328 mcg/L 01/28/2024 11:09 AM CDT DT Blood (Blood, Venous) 01/28/2024 10:16 AM CDT 01/28/2024 10:42 AM CDT Rod Perales M.D. LAB BLOOD ADD-ON [facility] [address] [place], [place] [address] [place] [address] [address] [place] [address] * CK (Creatine Kinase) (01/28/2024 10:16 AM CDT) Creatine Kinase (CK), S 116 26 - 192 U/L 01/28/2024 11:09 AM CDT DT Blood (Blood, Venous) 01/28/2024 10:16 AM CDT 01/28/2024 10:42 AM CDT Rod Perales M.D. LAB BLOOD ADD-ON [facility] [address] [place] [address] * Cortisol (01/28/2024 10:16 AM CDT) [facility] Cortisol, Random, S 12 mcg/dL 01/28/2024 11:09 AM CDT DT Comment: ----REFERENCE VALUE---- AM (9710-9083): 4.8-20 PM (3421-4544): 2.5-12 Blood (Blood, Venous) 01/28/2024 10:16 AM CDT 01/28/2024 10:42 AM CDT Rod Perales M.D. LAB BLOOD ADD-ON [facility] [address] [place], [place] [address] [address] [place] [address] * (ABNORMAL) Comprehensive Metabolic Panel (01/28/2024 10:16 AM CDT) Pathologist [facility] Potassium, S 4.4 3.6 - 5.2 mmol/L [...] CDT Rod Perales M.D. LAB BLOOD ADD-ON [facility] [address] [place] [address], [place] DTL [facility] [address] [place] [address] * NT-Pro B-Type Natriuretic Peptide (BNP) (01/15/2024 [...] Vitor Calle M.D. LAB BLOOD ADD-ON [facility] [address] [place] [address], [place] [facility] [facility] [address] [place] [address] * (ABNORMAL) Iron and Total Iron-Binding Capacity (01/15/2024 11:41 AM CDT) Pathologist [facility] Iron 45 35 - 145 mcg/dL 01/15/2024 3:26 PM CDT [facility] Total Iron Binding Capacity 224(L) 250 - 400 mcg/dL 01/15/2024 3:26 PM CDT [facility] Percent Saturation 20 14 - 50 % 01/15/2024 3:26 PM CDT [facility] Blood (Blood, Venous) 01/15/2024 11:41 AM CDT 01/15/2024 3:07 PM CDT Tony Schwartz P.A.-C. LAB BLOOD ADD-ON [facility] [address] [place] [address], [facility] AUST [facility] [address] [place] [address] * Sodium (01/15/2024 11:41 AM CDT) Sodium, P 139 135 - 145 mmol/L 01/15/2024 2:15 PM CDT [facility] Blood (Blood, Venous) 01/15/2024 11:41 AM CDT 01/15/2024 1:31 PM CDT Vitor Calle M.D. LAB BLOOD ADD-ON [facility] [address] [place] [address], [place] [facility] [address] [place] [address] * Potassium (01/15/2024 11:41 AM CDT) Potassium, P 4.5 3.6 - 5.2 mmol/L 01/15/2024 2:15 PM CDT [facility] Blood (Blood, Venous) 01/15/2024 11:41 AM CDT 01/15/2024 1:31 PM CDT Vitor Calle M.D. LAB BLOOD ADD-ON [facility] [address] [place] [address], [place] [facility] [address] [place] [address] * Creatinine with Estimated GFR (01/15/2024 11:41 AM CDT) Creatinine 0.72 0.59 - 1.04 mg/dL 01/15/2024 2:15 PM CDT [facility] Estimated GFR (eGFR) 86 >=60 mL/min/BSA 01/15/2024 2:15 PM CDT [facility] Comment: Estimated GFR calculated using the 2020 CKD_EPI creatinine equation. Blood (Blood, Venous) 01/15/2024 11:41 AM CDT 01/15/2024 1:31 PM CDT Vitor Calle M.D. LAB BLOOD ADD-ON [facility] [address] [place] [address], [place] [facility] [address] [place] [address] * (TTE) 2D ECHO DOPPLER COLOR (01/01/2024 [...] ratio). Calculated 2-D linear left ventricular ejection [id number]%. No regional wall motion abnormalities. 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 [address] [place] [address] [place] [phone] PCP - General Family Medicine 09/08/21
--- OUTSIDE RECORDS SUMMARY | 2024-03-14 11:36 | XMS_ITS | Encounter Summary ---
Author Organization [facility] Address [address] [place] [address] Care Team Providers Care Beauty Culturist Apprentice Name Role Phone Erinn Reina M.D. Primary Care Provider Reason for Referral * Outpatient (Routine) - Authorized Specialty Diagnoses / Procedures Referred By Osorio guevara Referred To Contact Diagnoses Chronic Obstructive Pulmonary Disease (HCC) Procedures Arterial Blood Gas Arjun Umana M.D. 200 [place] [address] [facility] Referral ID Status Reason Start Date Expiration Date V isits Requested Visits Authorized [id number] Authorized 03/04/2024 03/04/2025 1 1 * Outpatient (Routine) - Authorized Specialty Diagnoses / Procedures Referred By Osorio guevara Referred To Contact Sleep Medicine Diagnoses Chronic Obstructive Pulmonary Disease (HCC) Arjun Umana M.D. [address] [place] [phone] [facility] Referral ID Status Reason Start Date Expiration Date Visits Requested Visits Authorized [id number] Authorized Specialty Services Required 03/04/2024 09/03/2025 1 1 Reason for Visit * Outpatient (Routine) - Closed Specialty Diagnoses / Procedures Referred By Contac t Referred To Contact Pulmonary Medicine Seun Bey M.D. [address] [place] [address] [facility] Referral ID Status Reason Start Date Expiration Date Visits Re quested Visits Authorized [id number] Closed 12/03/2023 06/03/2025 1 1 Encounter Details Date Type Department Care Team (Late st Contact Info) Description 03/04/2024 1:30 PM CDT Office Visit Division of Pulmonary Medicine in [place], [place] [address] [place] [phone] Arjun Umana M.D. [address] [place] [phone] Chronic Obstructive Pulmonary Disease (HCC) (Primary Dx); [...] declined 03/05/2022 How often do you attend [facility] or sikhism services? 1 to 4 times per year 03/05/2022 Do you belong to any clubs o r organizations such as cheondoism groups, unions, fraternal or athletic groups, or [...] living situation today? I have a [facility] place to live 04/10/2023 Education Answer Date Recorded What is the highest level of school you have completed or the highest degree you have received? 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 Immunizations Stay up-to-date with immunizations, including influenza, [...] spent a total of 30 minutes both ovha-ih-jcas and not eqhw-jf-qbog. The impression and plans wereexplained in detail. There were no apparent barriers to learning and understanding. All questions were answered. Case will be discussed with senior health consultant, Dr. Thorpe. Arjun Umana M.D. Division of Pulmonary and Critical Care Medicine, Fellow/PGY-6 [place], [place] [phone] documented in this encounter Plan of Treatment Upcoming Encounters Date Type Department Care Team (Late st Contact Info) Description 03/17/2024 9:15 AM CDT Clinical Support Department of Physical Medicine and Rehabilitation in [place], [place] [address] [place] [address] Rod Collins M.D. [address] [place] [phone] Elana Winters P, P.T. [address] [place] [phone] 03/24/2024 12:45 PM CDT Clinical Support Department of Physical Medicine and Rehabilitation in [place], [place] [address] [place] [address] Rod Collins M.D. [address] [place] [phone] Elana Winters P, P.T. [address] [place] [phone] 03/31/2024 12:45 PM CDT Clinical Support Department of Physical Medicine and Rehabilitation in [place], [place] [address] [place] [address] Rod Collins M.D. [address] [place] [phone] Elana Winters, P.T. [address] [place] [phone] 04/07/2024 12:45 PM CDT Clinical Support Department of Physical Medicine and Rehabilitation in [place], [place] [address] [place] [address] Rod Collins M.D. [address] [place] [phone] Elana Winters P, P.T. [address] [place] [phone] 04/14/2024 12:45 PM CDT Clinical Support Department of Physical Medicine and Rehabilitation in [address] [phone] Rod Collins M.D. [address] [place] [phone] Elana Winters, P.T. [address] [place] [phone] 04/21/2024 12:45 PM CDT Clinical Support Department of Physical Medicine and Rehabilitation in [address] [address] Rod Collins M.D. [address] [place] [phone] Elana Winters, P.T. [address] [place] [phone] 04/28/2024 12:45 PM CDT Clinical Support Department of Physical Medicine and Rehabilitation in [address] [address] Rod Collins M.D. [address] [place] [phone] Elana Winters, P.T. [address] [place] [phone] Scheduled Orders Name Type Priority Associated Diagnoses [...] Total Score: 6 08/15/20 22 2:06 AM MANAGER ENVIRONMENTAL AFFAIRS documented as of this encounter Care Teams Beauty Culturist Apprentice Relationship Specialty Start Date End Date Erinn Reina M.D. [address] [place] [phone] PCP - General Family Medicine 09/08/21 documented as of this encounter
--- OUTSIDE RECORDS SUMMARY | 2024-03-14 11:36 | XMS_ITS | Encounter Summary ---
Author Organization [facility] Address [address] [place] [address] Care Team Providers Care Mesh Cutter Name Role Phone Erinn Reina M.D. Primary Care Provider [phone] Reason for Visit * Physical Therapy (Routine) - Canceled Specialty Diagnoses / Procedures Referred By Osorio guevara Referred To Contact Diagnoses Fibromyalgia Pain Low Back Unspecified Procedures PT Ongoing treatment Tony Schwartz P.AAnn-Marie-CAnn-Marie 200 [place] [address] [facility] Region Referral ID Status Reason Start Date Expiration Date V isits Requested Visits Authorized [id number] Canceled 06/07/2023 06/06/2024 99 99 Encounter Details Date Type Department Care Team (Latest Contact Info) Description 01/29/2024 10:45 AM CDT Clinical Support Department of Physical Medicine and Rehabilitation in [place], [place] [address] [place] [phone] Tony Schwartz, PAnn-MarieA.-CAnn-Marie [address] [place] [phone] Elana Winters, P.TAnn-Marie [address] [place] [phone] Fibromyalgia (Primary Dx); Pain Low Back Unspecified [...] How often do you attend chur or sabianism services? 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 Patient verbalizes she remembers the exercises. [employer]: [email or web address] Access Code: [email or web address] Patient reports fair HEP [...] Department of Physical Medicine and Rehabilitation in [place], [place] [address] [place] [address] Rod Collins M.D. [address] [place] [phone] Elana Winters P, P.T. [address] [place] [phone] 03/24/2024 12:45 PM CDT Clinical Support Department of Physical Medicine and Rehabilitation in [place], [place] [address] [place] [address] Rod Collins M.D. [address] [place] [phone] Elana Winters, P.T. [address] [place] [phone] 03/31/2024 12:45 PM CDT Clinical Support Department of Physical Medicine and Rehabilitation in [place], [place] [address] [place] [address] Rod Collins M.D. [address] [place] [phone] Elana Winters P, P.T. [address] [place] [phone] 04/07/2024 12:45 PM CDT Clinical Support Department of Physical Medicine and Rehabilitation in [place], [place] [address] [place] [address] Rod Collins M.D. [address] [place] [phone] Elana Winters, P.T. [address] [place] [phone] 04/14/2024 12:45 PM CDT Clinical Support Department of Physical Medicine and Rehabilitation in [place], [place] [address] [place] [address] Rod Collins M.D. [address] [place] [phone] Elana Winters P, P.T. [address] [place] [phone] 04/21/2024 12:45 PM CDT Clinical Support Department of Physical Medicine and Rehabilitation in [place], [place] [address] [place] [address] Rod Collins M.D. [address] [place] [phone] Elana Winters, P.T. [address] [place] [phone] 04/28/2024 12:45 PM CDT Clinical Support Department of Physical Medicine and Rehabilitation in [place], [place] [address] [place] [phone] Rod Collins M.D. [address] [place] [phone] Elana Winters P, P.T. [address] [place] [phone] documented as of this encounter Visit Diagnoses Diagnosis Fibromyalgia- Primary Pain Low Back Unspecified documented in this encounter Additional Health Concerns Assessment Noted Time PHQ-9 Depression Total Score: 6 08/15/20 22 2:06 AM STOCK HOUSE WORKER documented as of this encounter Care Teams Mesh Cutter Relationship Specialty Start Date End Date Erinn Reina M.D. [address] [place], [place] [address], [place] [address] PCP - General Family Medicine 09/08/21 documented as of this encounter
--- OUTSIDE RECORDS SUMMARY | 2024-03-14 11:37 | XMS_ITS | Encounter Summary ---
Author Organization [facility] Address [address] [place] [address] Care Team Providers Care Colliery Clerk Name Role Phone Erinn Reina M.D. Primary Care Provider [phone] Encounter Details Date Type Department Care Team (Late st Contact Info) Description 01/09/2024 Orders Only Department of Vascular Medicine in [place], [place] [address] [place] [address] Tony Schwartz P.A.-C. [address] [place] [phone] Anemia Iron Deficiency (Primary Dx) Social History [...] How often do you attend chur or jehovah's witness services? 1 to 4 times per year 03/05/2022 Do you belong to any clubs o r organizations such as catholic groups, unions, fraAction Engine or athletic groups, or school groups? No [...] Date Recorded PHQ-2 Score 1 08/15/2022 [facility] of Occupat ionsc Health - Occupational Stress [...] your living situation today? I have a [facility] place to live 04/10/2023 Education Answer Date Recorded What is the highest level of school you have completed or the highest degree you have received? 12th grade 04/14/2019 Sex and Gender Information Value Date Recorded Sex Assigned at Female 10/24/2023 10:51 PM PATIENT CARE NURSING ASSISTANT Gender Identity Female 02/10/2019 11:51 AM CDT Sexual Orientation Straight 02/10/2019 11 :51 AM CDT documented as of this encounter Plan of Treatment Upcoming Encounters Date Type Department Care Team (Late st Contact Info) Description 03/17/2024 9:15 AM CDT Clinical Support Department of Physical Medicine and Rehabilitation in [place], [place] [address] [place] [address] Rod Collins M.D. [address] [place] [address] Elana Winters, P.T. [address] [place] [address] 03/24/2024 12:45 PM CDT Clinical Support Department of Physical Medicine and Rehabilitation in [place], [place] [address] [place] [address] Rod Collins M.D. [address] [place] [phone] Elana Winters P, P.T. [facility] [place] [address] 03/31/2024 12:45 PM CDT Clinical Support Department of Physical Medicine and Rehabilitation in [place], [place] [address] [place] [address] Rod Collins M.D. [address] [place] [phone] Elana Winters, P.T. [address] [place] [phone] 04/07/2024 12:45 PM CDT Clinical Support Department of Physical Medicine and Rehabilitation in [place], [place] [address] [place] [address] Rod Collins M.D. [address] [place] [phone] Elana Winters P, P.T. [address] [place] [phone] 04/14/2024 12:45 PM CDT Clinical Support Department of Physical Medicine and Rehabilitation in [place], [place] [address] [place] [address] Rod Collins M.D. [address] [place] [phone] Elana Winters, P.T. [address] [place] [phone] 04/21/2024 12:45 PM CDT Clinical Support Department of Physical Medicine and Rehabilitation in [place], [place] [address] [place] [address] Rod Collins M.D. [address] [place] [phone] Elana Winters, P.T. [address] [place] [address] 04/28/2024 12:45 PM CDT Clinical Support Department of Physical Medicine and Rehabilitation in [place], [place] [address] [place] [address] Rod Collins M.D. [address] [place] [address] Elana Winters P, P.T. [address] [place] [phone] documented as of this encounter Results * (ABNORMAL) Iron and Total Iron-Binding Capacity (01/15/2024 11:41 AM CDT) [facility] Iron 45 35 - 145 mcg/dL 01/15/2024 3:26 PM CDT [facility] Total Iron Binding Capacity 224(L) 250 - 400 mcg/dL 01/15/2024 3:26 PM CDT [facility] Percent Saturation 20 14 - 50 % 01/15/2024 3:26 PM CDT [facility] Blood (Blood, Venous) 01/15/2024 11:41 AM CDT 01/15/2024 3:07 PM CDT Tony Schwartz P.A.-C. LAB BLOOD ADD-ON [facility] [address] [place] [address], [facility] - [address] [place] [address] * (ABNORMAL) Ferritin (01/15/2024 11:41 AM CDT) Ferritin, S 347(H) 11 - 328 mcg/L 01/15/2024 2:25 PM CDT [facility] Comment: Biotin has been identified by the junior electrical engineer as a potential interfering substance. Higher concentrations of biotin may be found in multivitamins, hair/nail supplements, and workout supplements. If the result does not match clinical observations, repeat testing after patient refrains from the use of supplements for at least 12 hours. Blood (Blood, Venous) 01/15/2024 11:41 AM CDT 01/15/2024 1:31 PM CDT Tony Schwartz P.A.-C. LAB BLOOD ADD-ON Performing Organization Address City/State/[facility] Co de Phone Number [facility] [address] [place] [address], [facility]AT in [place] [address] [place] [address] * (ABNORMAL) CBC with Differential, Blood (01/15/2024 [...] CDT Tony Schwartz P.A.-C. LAB BLOOD ADD-ON [facility] [address] [place] [address], [facility] FB60 in [place] [address] [place] [address] documented in this encounter Visit Diagnoses Diagnosis Anemia Iron Deficiency- Primary documented in this encounter Additional Health Concerns Assessment Noted Time PHQ-9 Depression Total Score: 6 08/15/20 22 2:06 AM PATIENT CARE NURSING ASSISTANT documented as of this encounter Care Teams Colliery Clerk Relationship Specialty Start Date End Date Erinn Reina M.D. [address] [place] [address] PCP - General Family Medicine 09/08/21 documented as of this encounter
--- OUTSIDE RECORDS SUMMARY | 2024-03-14 11:37 | XMS_ITS | Encounter Summary ---
Author Organization [facility] Address [address] [place] [address] Care Team Providers Care Staff Field Engineer Name Role Phone Erinn Reina M.D. Primary Care Provider [phone] Reason for Visit * Physical Therapy (Routine) - Canceled Specialty Diagnoses / Procedures Referred By Osorio guevara Referred To Contact Diagnoses Fibromyalgia Pain Low Back Unspecified Procedures PT Ongoing treatment Tony Schwartz P.AAnn-Marie-CAnn-Marie [address] [place] [address] [facility] Region Referral ID Status Reason Start Date Expiration Date V isits Requested Visits Authorized [id number] Canceled 06/07/2023 06/06/2024 99 99 Encounter Details Date Type Department Care Team (Latest Contact Info) Description 01/02/2024 9:15 AM CDT Clinical Support Department of Physical Medicine and Rehabilitation in [place], [place] [address] [place] [phone] Tony Schwartz, PAnn-MarieA.-CAnn-Marie [address] [place] [phone] Elana Winters, P.TAnn-Marie [address] [place] [phone] Fibromyalgia (Primary Dx); Pain Low Back Unspecified [...] any clubs o r organizations such as alevism groups, unions, fraternal or athletic groups, or [...] Answer Date Recorded PHQ-2 Score 1 08/15/2022 [facility] [place] of Occupat ional Health - Occupational Stress [...] Sex Assigned at Female 10/24/2023 10:51 PM FEATHER STITCHER Gender Identity Female 02/10/2019 11:51 AM CDT [...] grossly 35 minutes.Patient reports she saw her director software and has a scheduled appointment with her visual merchandising assistant next week again. Patient reports her back continues to hurt throughout and believes she has having a fibromyalgia exacerbation due to the nature of her pain in the location is throughout her back versus localized areas. OBJECTIVE Pain: Not formally rated today. 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 Patient verbalizes she remembers the exercises. [employer]: [email or web address] Access Code: [email or web address] Patient reports fair HEP [...] Department of Physical Medicine and Rehabilitation in [place], [place] [address] [place] [address] Rod Collins M.D. [address] [place] [address] Elana Winters, P.T. [address] [place] [address] 03/24/2024 12:45 PM CDT Clinical Support Department of Physical Medicine and Rehabilitation in [place], [place] [address] [address] Rod Collins M.D. [address] [place] [phone] Elana Winters P, P.T. [address] [place] [phone] 03/31/2024 12:45 PM CDT Clinical Support Department of Physical Medicine and Rehabilitation in [place], [place] [address] [address] Rod Collins M.D. [address] [place] [phone] Elana Winters P, P.T. [address] [place] [phone] 04/07/2024 12:45 PM CDT Clinical Support Department of Physical Medicine and Rehabilitation in [place], [place] [address] [address] Rod Collins M.D. [address] [place] [phone] Elana Winters P, P.T. [address] [place] [phone] 04/14/2024 12:45 PM CDT Clinical Support Department of Physical Medicine and Rehabilitation in [place], [place] [address] [place] [address] Rod Collins M.D. [address] [place] [phone] Elana Winters, P.T. [address] [place] [phone] 04/21/2024 12:45 PM CDT Clinical Support Department of Physical Medicine and Rehabilitation in [place], [place] [address] [address] Rod Collins M.D. [address] [place] [address] Elana Winters, P.T. [address] [place] [address] 04/28/2024 12:45 PM CDT Clinical Support Department of Physical Medicine and Rehabilitation in [place], [place] [address] [place] [address] Rod Collins M.D. [address] [place] [address] Elana Winters, P.T. [address] [place] [phone] documented as of this encounter Visit Diagnoses Diagnosis Fibromyalgia- Primary Pain Low Back Unspecified documented in this encounter Additional Health Concerns Assessment Noted Time PHQ-9 Depression Total Score: 6 08/15/20 22 2:06 AM FEATHER STITCHER documented as of this encounter Care Teams Staff Field Engineer Relationship Specialty Start Date End Date Erinn Reina M.D. [address] [place] [phone] PCP - General Family Medicine 09/08/21 documented as of this encounter
--- OUTSIDE RECORDS SUMMARY | 2024-03-14 11:37 | XMS_ITS | Encounter Summary ---
Author Organization [facility] Address [address] [place] [address] Care Team Providers Care Actuarial Consultant Name Role Phone Erinn Reina M.D. Primary Care Provider Reason for Referral * Outpatient (Routine) - Authorized Specialty Diagnoses / Procedures Referred By Osorio guevara Referred To Contact Cardiovascular Disease Vitor Calle M.D. [address] [place] [address] [facility] Region Referral ID Status Reason Start Date Expiration Date V isits Requested Visits Authorized [id number] Authorized 01/08/2024 07/09/2025 1 1 Reason for Visit * Reason Comments Follow-up Results ECHO * Outpatient (Routine) - Closed Specialty Diagnoses / Procedures Referred By Osorio guevara Referred To Contact Cardiovascular Disease Vitor Calle M.D. [address] [place] [phone] [facility] Region Referral ID Status Reason Start Date Expiration Date Visits Re quested Visits Authorized [id number] Closed 10/09/2023 10/08/2026 1 1 Encounter Details Date Type Department Care Team (Latest Contact Info) Description 01/08/2024 11:30 AM CDT Office Visit Department of Cardiovascular Diseases in [place], [place] [address] [place] [phone] Vitor Calle M.D. 300 [facility] [place] [phone] Dyspnea Multifactorial (Primary Dx) Social History Tobacco [...] Answer Date Recorded PHQ-2 Score 1 08/15/2022 [facility] Occupat ional [facility] - Occupational Stress Questionnaire Answer Date Recorded [...] Sex Assigned at Female 10/24/2023 10:51 PM GROUND MIXER Gender Identity Female 02/10/2019 11:51 AM CDT [...] Body Mass Index 16.73 11/01/2023 11:19 AM GROUND MIXER documented in this encounter Progress Notes * Vitor Calle M.D. - 01/08/2024 11:30 AM CDT ASSESSMENT / PLAN Dyspnea on exertion, multifactorial, limiting Heart failure with preserved systolic function Pulmonary hypertension, group 3 +/- 2 COPD, emphysema, on O2 29/04 [facility] Severe left [facility] enlargement, 10/2021 [...] capacity and affecting her quality of life. [place] Heart Association class 3 functional status. Some [...] follow-up and management with Pulmonary Medicine in [place]. We encouraged the patient is scheduling palliative care and pulmonary rehabilitation as recommended by [place]. The patient has been prescribed metoprolol succinate [...] referral to the nicotine cessation Clinic in [place] but she had been seen by them [...] planning with the patient, her [facility]Tru[facility]. The patient [...] schedule follow-up appointment with palliative Service in [place], for additional discussions in regards to options [...] with the plan. CARDIOLOGY SUBSEQUENT VISIT Location: [facility] SUBJECTIVE CHIEF COMPLAINT / REASON FOR VISIT Office follow-up. HISTORY OF PRESENT ILLNESS Ms. Marty Rivera is a very pleasant 78 y.o. female who presents to [facility] for follow-up. Her primary [...] not been seen by palliative Medicine in [place] as yet. Compliant with medication without side [...] AND USE 2 SPRAYS IN EACHNOSTRIL DAILY dlvcvmkndxz-qmgzwzuersfm-lpgqaqjxvr (Trelegy Ellipta) 100-62.5-25 mcg/actuation inhaler Inhale 1 [...] Department of Physical Medicine and Rehabilitation in [place], [place] [address] [place] [address] Rod Collins M.D. [address] [place] [phone] Elana Winters P, P.T. [address] [place] [phone] 03/24/2024 12:45 PM CDT Clinical Support Department of Physical Medicine and Rehabilitation in [place], [place] [address] [place] [address] Rod Collins M.D. [address] [place] [phone] Elana Winters P, P.T. [address] [place] [phone] 03/31/2024 12:45 PM CDT Clinical Support Department of Physical Medicine and Rehabilitation in [place], [place] [address] [place] [address] Rod Collins M.D. [address] [place] [phone] Elana Winters P, P.T. [address] [place] [phone] 04/07/2024 12:45 PM CDT Clinical Support Department of Physical Medicine and Rehabilitation in [place], [place] [address] [place] [address] Rod Collins M.D. [address] [place] [phone] Elana Winters, P.T. [address] [place] [phone] 04/14/2024 12:45 PM CDT Clinical Support Department of Physical Medicine and Rehabilitation in [address] [address] Rod Collins M.D. [address] [place] [phone] Elana Winters, P.T. [address] [place] [phone] 04/21/2024 12:45 PM CDT Clinical Support Department of Physical Medicine and Rehabilitation in [address] [address] Rod Collins M.D. [address] [place] [phone] Elana Winters, P.T. [address] [place] [phone] 04/28/2024 12:45 PM CDT Clinical Support Department of Physical Medicine and Rehabilitation in [address] [address] Rod Collins M.D. [address] [place] [phone] Elana Winters, P.T. [address] [place] [phone] Scheduled Referrals Name Type Priority Associated Diagnoses [...] M.D. LAB BLOOD ADD-ON Performing Organization Address [facility] Co de Phone Number [facility] [address] [place] [address], [facility] [place] [address] [place] [address] * Creatinine with Estimated GFR (01/15/2024 11:41 AM CDT) Creatinine 0.72 0.59 - 1.04 mg/dL 01/15/2024 2:15 PM CDT OWAT Estimated GFR (eGFR) 86 >=60 mL/min/BSA 01/15/2024 2:15 PM CDT OWAT Comment: Estimated GFR calculated using the 2020 CKD_EPI creatinine equation. Blood (Blood, Venous) 01/15/2024 11:41 AM CDT 01/15/2024 1:31 PM CDT Vitor Calle M.D. LAB BLOOD ADD-ON Performing Organization Address City/[facility]/ZIP Co de Phone Number [facility] [address] [place] [address], [facility] [place] [address] [place] [address] * Potassium (01/15/2024 11:41 AM CDT) Potassium, P 4.5 3.6 - 5.2 mmol/L 01/15/2024 2:15 PM CDT OWAT Blood (Blood, Venous) 01/15/2024 11:41 AM CDT 01/15/2024 1:31 PM CDT Vitor Calle M.D. LAB BLOOD ADD-ON Performing Organization Address City/[facility]/ZIP Co de Phone Number [facility] [address] [place] [address], [facility] [place] [address] [place] [address] * Sodium (01/15/2024 11:41 AM CDT) Sodium, P 139 135 - 145 mmol/L 01/15/2024 2:15 PM CDT OWAT Blood (Blood, Venous) 01/15/2024 11:41 AM CDT 01/15/2024 1:31 PM CDT Vitor Calle M.D. LAB BLOOD ADD-ON Performing Organization Address City/[facility]/ZIP Co de Phone Number [facility] [address] [place] [address], [facility] [place] [address] [address] documented in this encounter Visit Diagnoses Diagnosis Dyspnea Multifactorial- Primary documented in this encounter Additional Health Concerns Assessment Noted Time PHQ-9 Depression Total Score: 6 08/15/20 22 2:06 AM GROUND MIXER documented as of this encounter Care Teams Actuarial Consultant Relationship Specialty Start Date End Date Erinn Reina M.D. [address] [place] [phone] PCP - General Family Medicine 09/08/21 documented as of this encounter
--- OUTSIDE RECORDS SUMMARY | 2024-03-14 11:37 | XMS_ITS | Encounter Summary ---
Author Organization [facility] Address [address] [place] [address] Care Team Providers Care Supervisor Treating And Pumping Name Role Phone Erinn Reina M.D. Primary Care Provider [phone] Reason for Visit * Physical Therapy (Routine) - Canceled Specialty Diagnoses / Procedures Referred By Osorio guevraa Referred To Contact Diagnoses Fibromyalgia Pain Low Back Unspecified Procedures PT Ongoing treatment Tony Schwartz P.AAnn-Marie-CAnn-Marie [address] [place] [address] [facility] Region Referral ID Status Reason Start Date Expiration Date V isits Requested Visits Authorized [id number] Canceled 06/07/2023 06/06/2024 99 99 Encounter Details Date Type Department Care Team (Latest Contact Info) Description 01/06/2024 12:30 PM CDT Clinical Support Department of Physical Medicine and Rehabilitation in [place], [place] [address] [place] [phone] Tony Schwartz, P.A.-CAnn-Marie [address] [place] [phone] Elana Winters, P.TAnn-Marie [address] [place] [phone] Fibromyalgia; Pain Low Back Unspecified Social History [...] How often do you attend chur or moravian services? 1 to 4 times per year 03/05/2022 Do you belong to any clubs o r organizations such as tenriism groups, unions, fraternal or athletic groups, or [...] Answer Date Recorded PHQ-2 Score 1 08/15/2022 [facility] - Occupational Stress Questionnaire Answer [...] Sex Assigned at Female 10/24/2023 10:51 PM LOG ROPER Gender Identity Female 02/10/2019 11:51 AM CDT [...] she has a scheduled appointment with her material stress tester this week. 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 Patient verbalizes she remembers the exercises. [employer]: [email or web address] Access Code: [email or web address] Patient reports fair HEP [...] Department of Physical Medicine and Rehabilitation in [address] [phone] Rod Collins M.D. [address] [place] [address] Elana Winters P, P.T. [facility] [place] [address] 03/24/2024 12:45 PM CDT Clinical Support Department of Physical Medicine and Rehabilitation in [place], [place] [address] [place] [address] Rod Collins M.D. [address] [place] [phone] Elana Winters, P.T. [address] [place] [phone] 03/31/2024 12:45 PM CDT Clinical Support Department of Physical Medicine and Rehabilitation in [place], [place] [address] [place] [address] Rod Collins M.D. [address] [place] [phone] Elana Winters P, P.T. [address] [place] [phone] 04/07/2024 12:45 PM CDT Clinical Support Department of Physical Medicine and Rehabilitation in [place], [place] [address] [place] [address] Rod Collins M.D. [address] [place] [phone] Elana Winters, P.T. [address] [place] [phone] 04/14/2024 12:45 PM CDT Clinical Support Department of Physical Medicine and Rehabilitation in [place], [place] [address] [place] [address] Rod Collins M.D. [address] [place] [phone] Elana Winters P, P.T. [address] [place] [phone] 04/21/2024 12:45 PM CDT Clinical Support Department of Physical Medicine and Rehabilitation in [place], [place] [address] [place] [address] Rod Collins M.D. [address] [place] [phone] Elana Winters, P.T. [address] [place] [phone] 04/28/2024 12:45 PM CDT Clinical Support Department of Physical Medicine and Rehabilitation in [place], [place] [address] [place] [address] Rod Collins M.D. [address] [place] [phone] Elana Winters P, P.T. [address] [place] [phone] documented as of this encounter Visit Diagnoses Diagnosis Fibromyalgia Pain Low Back Unspecified documented in this encounter Additional Health Concerns Assessment Noted Time PHQ-9 Depression Total Score: 6 08/15/20 22 2:06 AM LOG ROPER documented as of this encounter Care Teams Supervisor Treating And Pumping Relationship Specialty Start Date End Date Erinn Reina M.D. [address] [place] [address] [place] [address] PCP - General Family Medicine 09/08/21 documented as of this encounter
--- OUTSIDE RECORDS SUMMARY | 2024-03-14 11:37 | XMS_ITS | Encounter Summary ---
Author Organization [facility] Address [address] [place] [address] Care Team Providers Care Data Examination Clerk Name Role Phone Erinn Reina M.D. Primary Care Provider [phone] Reason for Visit * Physical Therapy (Routine) - Canceled Specialty Diagnoses / Procedures Referred By Osorio guevara Referred To Contact Diagnoses Fibromyalgia Pain Low Back Unspecified Procedures PT Ongoing treatment Tony Schwartz P.AAnn-Marie-CAnn-Marie [address] [place] [address] [facility] Region Referral ID Status Reason Start Date Expiration Date V isits Requested Visits Authorized [id number] Canceled 06/07/2023 06/06/2024 99 99 Encounter Details Date Type Department Care Team (Latest Contact Info) Description 01/17/2024 12:45 PM CDT Clinical Support Department of Physical Medicine and Rehabilitation in [place], [place] [address] [place] [phone] Tony Schwartz, PAnn-MarieA.-CAnn-Marie [address] [place] [phone] Elana Winters, P.TAnn-Marie [address] [place] [phone] Fibromyalgia (Primary Dx); Pain Low Back Unspecified [...] How often do you attend chur or shinto services? 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 Patient verbalizes she remembers the exercises. [employer]: [email or web address] Access Code: [email or web address] Patient reports fair HEP [...] Department of Physical Medicine and Rehabilitation in [address] [address] Rod Collins M.D. [address] [place] [phone] Elana Winters P, P.T. [address] [place] [phone] 03/24/2024 12:45 PM CDT Clinical Support Department of Physical Medicine and Rehabilitation in [address] [address] Rod Collins M.D. [address] [place] [phone] Elana Winters, P.T. [address] [place] [phone] 03/31/2024 12:45 PM CDT Clinical Support Department of Physical Medicine and Rehabilitation in [address] [address] Rod Collins M.D. [address] [place] [phone] Elana Winters P, P.T. [address] [place] [phone] 04/07/2024 12:45 PM CDT Clinical Support Department of Physical Medicine and Rehabilitation in [address] [address] Rod Collins M.D. [address] [place] [phone] Elana Winters, P.T. [address] [place] [phone] 04/14/2024 12:45 PM CDT Clinical Support Department of Physical Medicine and Rehabilitation in [address] [place] [address] Rod Collins M.D. [address] [place] [phone] Elana Winters P, P.T. [address] [place] [phone] 04/21/2024 12:45 PM CDT Clinical Support Department of Physical Medicine and Rehabilitation in [place], [place] [address] [place] [address] Rod Collins M.D. [address] [place] [phone] Elana Winters, P.T. [address] [place] [phone] 04/28/2024 12:45 PM CDT Clinical Support Department of Physical Medicine and Rehabilitation in [place], [place] [address] [place] [address] Rod Collins M.D. [address] [place] [phone] Elana Winters P, P.T. [address] [place] [phone] documented as of this encounter Visit Diagnoses Diagnosis Fibromyalgia- Primary Pain Low Back Unspecified documented in this encounter Additional Health Concerns Assessment Noted Time PHQ-9 Depression Total Score: 6 08/15/20 22 2:06 AM BLENDING TANK HELPER documented as of this encounter Care Teams Data Examination Clerk Relationship Specialty Start Date End Date Erinn Reina M.D. [address] [place] [address] [place] [phone] PCP - General Family Medicine 09/08/21 documented as of this encounter
--- OUTSIDE RECORDS SUMMARY | 2024-03-14 11:37 | XMS_ITS | Encounter Summary ---
Author Organization [facility] Address [address] [place] [address] Care Team Providers Care Car Storer Name Role Phone Erinn Reina M.D. Primary Care Provider [phone] Reason for Referral * Outpatient (Routine) - Authorized Specialty Diagnoses / Procedures Referred By Osorio guevara Referred To Contact Diagnoses Chronic Obstructive Pulmonary Disease Moderate (HCC) Seun Bey M.D. [address] [place] [address] Referral ID Status Reason Start Date Expiration Date V isits Requested Visits Authorized [id number] Authorized 12/05/2023 06/05/2025 1 1 OW GLASS CUTTER OFF Encounter Details Date Type Department Care Team (Late st Contact Info) Description 12/05/2023 Clinical Communication Division of Pulmonary Medicine in [place], [place] [address] [place] [phone] Seun Bey M.D. [address] [place] [phone] Social History Tobacco Use Types Packs/Day Years [...] declined 03/05/2022 How often do you attend [facility] or restoration services? 1 to 4 times per year [...] Answer Date Recorded PHQ-2 Score 1 08/15/2022 [facility] of Occupat ional Health - [...] your living situation today? [facility] 04/10/2023 Education Answer Date Recorded What is the highest level of school you have completed or the highest degree you have received? 12th grade 04/14/2019 Sex and Gender Information Value Date Recorded Sex Assigned at Female 10/24/2023 10:51 PM WINDOW GLASS CUTTER OFF Gender Identity Female 02/10/2019 11:51 AM CDT Sexual Orientation Straight 02/10/2019 11 :51 AM CDT documented as of this encounter Plan of Treatment Upcoming Encounters Date Type Department Care Team (Late st Contact Info) Description 03/17/2024 9:15 AM CDT Clinical Support Department of Physical Medicine and Rehabilitation in [place], [place] [address] [place] [address] Rod Collins M.D. [address] [place] [phone] Elana Winters P, P.T. [address] [place] [address] 03/24/2024 12:45 PM CDT Clinical Support Department of Physical Medicine and Rehabilitation in [place], [place] [address] [address] Rod Collins M.D. [address] [place] [phone] Elana Winters, P.T. [address] [place] [phone] 03/31/2024 12:45 PM CDT Clinical Support Department of Physical Medicine and Rehabilitation in [place], [place] [address] [address] Rod Collins M.D. [address] [place] [phone] Elana Winters P, P.T. [address] [place] [phone] 04/07/2024 12:45 PM CDT Clinical Support Department of Physical Medicine and Rehabilitation in [place], [place] [address] [address] Rod Collins M.D. [address] [place] [phone] Elana Winters, P.T. [address] [place] [phone] 04/14/2024 12:45 PM CDT Clinical Support Department of Physical Medicine and Rehabilitation in [place], [place] [address] [address] Rod Collnis M.D. [address] [place] [phone] Elana Winters P, P.T. [address] [place] [phone] 04/21/2024 12:45 PM CDT Clinical Support Department of Physical Medicine and Rehabilitation in [place], [place] [address] [address] Rod Collins M.D. [address] [place] [phone] Elana Winters P, P.T. [address] [place] [phone] 04/28/2024 12:45 PM CDT Clinical Support Department of Physical Medicine and Rehabilitation in [place], [place] [address] [place] [address] Rod Collins M.D. [address] [place] [phone] Elana Winters P, P.T. [address] [place] [phone] documented as of this encounter Visit Diagnoses Diagnosis Chronic Obstructive Pulmonary Disease Moderate (HCC)- Primary documented in this encounter Additional Health Concerns Assessment Noted Time PHQ-9 Depression Total Score: 6 08/15/20 22 2:06 AM WINDOW GLASS CUTTER OFF documented as of this encounter Care Teams Car Storer Relationship Specialty Start Date End Date Erinn Reina M.D. [address] [place] [address] [place] [address] PCP - General Family Medicine 09/08/21 documented as of this encounter
--- OUTSIDE RECORDS SUMMARY | 2024-03-14 11:37 | XMS_ITS | Encounter Summary ---
Author Organization [facility] Address [address] [place] [address] Care Team Providers Care Piping Supervisor Name Role Phone Erinn Reina M.D. Primary Care Provider Encounter Details Date Type Department Care Team (Latest Contact Info) Description 01/15/2024 11:30 AM CDT - 01/15/2024 11:59 PM CDT Hospital Encounter Department of Laboratory Medicine in [place], [place] [address] [place] [address] Vitor Calle M.D. [address] [place] [phone] Dyspnea Multifactorial; Anemia Iron Deficiency Discharge Disposition: [...] How often do you attend chur or adventist services? 1 to 4 times per year [...] Answer Date Recorded PHQ-2 Score 1 08/15/2022 [facility] - [...] your living situation today? I have a [facility] place to live 04/10/2023 Education Answer Date Recorded What is the highest level of school you have completed or the highest degree you have received? 12th grade 04/14/2019 Sex and Gender Information Value Date Recorded Sex Assigned at Female 10/24/2023 10:51 PM BAND ATTACHER Gender Identity Female 02/10/2019 11:51 AM CDT [...] 2023 fluticasone-umeclidiniu m-vilanterol (Trelegy Ellipta) 100-62.5-25 mcg/actuation inhalerIndications:Steam Conditioner Operator padmini Obstructive Pulmonary Disease Moderate (HCC) Inhale [...] mouth daily. 01/19/2023 Ventolin HFA 90 mcg/actuation inhalerIndications:Steam Conditioner Operator padmini Obstructive Pulmonary Disease (HCC),Dyspnea Multifactorial Inhale 2 puffs every 4 (four) hours as needed for wheezing or shortness of breath. 18 g 11 11/08/2023 11/07/2024 documented as of this encounter Plan of Treatment Upcoming Encounters Date Type Department Care Team (Late st Contact Info) Description 03/17/2024 9:15 AM CDT Clinical Support Department of Physical Medicine and Rehabilitation in [place], [place] [address] [place] [phone] Rod Collins M.D. [address] [place] [address] Elana Winters P, P.T. [address] [place] [phone] 03/24/2024 12:45 PM CDT Clinical Support Department of Physical Medicine and Rehabilitation in [place], [place] [address] [place] [address] Rod Collins M.D. [address] [place] [phone] Elana Winters, P.T. [address] [place] [phone] 03/31/2024 12:45 PM CDT Clinical Support Department of Physical Medicine and Rehabilitation in [place], [place] [address] [place] [address] Rod Collins M.D. [address] [place] [address] Elana Winters, P.T. [address] [place] [phone] 04/07/2024 12:45 PM CDT Clinical Support Department of Physical Medicine and Rehabilitation in [place], [place] [address] [place] [address] Rod Collins M.D. [address] [place] [address] Elana Winters, P.T. [address] [place] [phone] 04/14/2024 12:45 PM CDT Clinical Support Department of Physical Medicine and Rehabilitation in [place], [place] [address] [place] [address] Rod Collins M.D. [address] [place] [address] Elana Winters P, P.T. [address] [address] 04/21/2024 12:45 PM CDT Clinical Support Department of Physical Medicine and Rehabilitation in [place], [place] [address] [place] [address] Rod Collins M.D. [address] [place] [address] Elana Winters, P.T. [address] [place] [phone] 04/28/2024 12:45 PM CDT Clinical Support Department of Physical Medicine and Rehabilitation in [place], [place] [address] [place] [address] Rod Collins M.D. [address] [place] [phone] Elana Winters, P.T. [address] [place] [phone] documented as of this encounter Procedures Procedure [...] CDT Tony Schwartz P.A.-C. LAB BLOOD ADD-ON [facility] [address] [place] [address], [facility] AUST [facility] - [facility] [address] [place] [address] * (ABNORMAL) Ferritin (01/15/2024 11:41 AM CDT) Ferritin, S 347(H) 11 - 328 mcg/L 01/15/2024 2:25 PM CDT OWAT Comment: Biotin has been identified by the para educator as a potential interfering substance. Higher concentrations of biotin may be found in multivitamins, hair/nail supplements, and workout supplements. If the result does not match clinical observations, repeat testing after patient refrains from the use of supplements for at least 12 hours. Blood (Blood, Venous) 01/15/2024 11:41 AM CDT 01/15/2024 1:31 PM CDT Tony Schwartz P.A.-C. LAB BLOOD ADD-ON [facility] [address] [place] [address], [place] OWAT [facility] in [place] [address] [place] [address] * (ABNORMAL) CBC with Differential, Blood (01/15/2024 11:41 AM CDT) Pathologist [facility] Hemoglobin 12.3 11.6 - 15.0 g/dL 01/15/2024 [...] CDT Tony Schwartz P.A.-C. LAB BLOOD ADD-ON [facility] [address] [place] [address], [place] FB60 [facility] in [place] [address] [place] [address] * NT-Pro B-Type Natriuretic Peptide (BNP) (01/15/2024 [...] Address City/[facility]/ZIP Co de Phone Number [facility] [address] [place] [address], [place] OW[place] [facility] [place] [address] [place] [address] * Creatinine with Estimated GFR (01/15/2024 11:41 AM CDT) Creatinine 0.72 0.59 - 1.04 mg/dL 01/15/2024 2:15 PM CDT OWAT Estimated GFR (eGFR) 86 >=60 mL/min/BSA 01/15/2024 2:15 PM CDT OWAT Comment: Estimated GFR calculated using the 2020 CKD_EPI creatinine equation. Blood (Blood, Venous) 01/15/2024 11:41 AM CDT 01/15/2024 1:31 PM CDT Vitor Calle M.D. LAB BLOOD ADD-ON [facility] [address] [place] [address], [facility] OWAT [facility] [place] [address] [place] [address] * Potassium (01/15/2024 11:41 AM CDT) Potassium, P 4.5 3.6 - 5.2 mmol/L 01/15/2024 2:15 PM CDT OWAT Blood (Blood, Venous) 01/15/2024 11:41 AM CDT 01/15/2024 1:31 PM CDT Vitor Calle M.D. LAB BLOOD ADD-ON Performing Organization Address City/[facility]/ZIP Co de Phone Number [facility] [address] [place] [address], [place] AT [facility] [place] [address] [place] [address] * Sodium (01/15/2024 11:41 AM CDT) Sodium, P 139 135 - 145 mmol/L 01/15/2024 2:15 PM CDT OWAT Blood (Blood, Venous) 01/15/2024 11:41 AM CDT 01/15/2024 1:31 PM CDT Vitor Calle M.D. LAB BLOOD ADD-ON [facility] [address] [place] [address], [place] OW[place] [facility] [place] [address] [place] [address] documented in this encounter Visit Diagnoses Diagnosis Dyspnea Multifactorial Anemia Iron Deficiency documented in this encounter Additional Health Concerns Assessment Noted Time PHQ-9 Depression Total Score: 6 08/15/20 22 2:06 AM BAND ATTACHER documented as of this encounter Care Teams Piping Supervisor Relationship Specialty Start Date End Date Erinn Reina M.D. [address] [place] [phone] PCP - General Family Medicine 09/08/21 documented as of this encounter
--- OUTSIDE RECORDS SUMMARY | 2024-03-14 11:37 | XMS_ITS | Encounter Summary ---
Author Organization [facility] Address [address] [place] [address] Care Team Providers Care Fishing Boat Captain Name Role Phone Erinn Reina M.D. Primary Care Provider Reason for Referral * Outpatient (Routine) - Authorized Specialty Diagnoses / Procedures Referred By Contac t Referred To Contact Diagnoses Fracture Vertebra Compression Thoracic Closed Initial (HCC) Osteoporosis Procedures BMD Vertebral Fracture Assessment Rod Collins M.D. [address] [place] [address] [facility] Referral ID Status Reason Start Date Expiration Date V isits Requested Visits Authorized [id number] Authorized 01/28/2024 01/27/2025 1 1 * Outpatient (Routine) - Authorized Specialty Diagnoses / Procedures Referred By Contac t Referred To Contact Diagnoses Fracture Vertebra Compression Thoracic Closed Initial (HCC) Osteoporosis Procedures BMD Bone Density Spine Hips Rod Collins M.D. [address] [place] [address] [facility] Referral ID Status Reason Start Date Expiration Date V isits Requested Visits Authorized [id number] Authorized 01/28/2024 01/27/2025 1 1 * Outpatient (Routine) - Authorized Specialty Diagnoses / Procedures Referred By Contac t Referred To Contact Endocrinology Diagnoses Fracture Vertebra Compression Thoracic Closed Initial (HCC) Osteoporosis Rod Collins M.D. [address] [place] [phone] [facility] Referral ID Status Reason Start Date Expiration Date V isits Requested Visits Authorized [id number] Authorized 01/28/2024 07/29/2025 1 1 Scheduling Instructions Fellow or bone SERA * Specialty Diagnoses / Procedures Referred By Contson t Referred To Contact Rod Collins M.D. [address] [place] [phone] [facility] Referral ID Status Reason Start Date Expiration Date Visits Re quested Visits Authorized Scheduling Instructions Schedule at the end of the itinerary. * Specialty Diagnoses / Procedures Referred By Osorio t Referred To Contact Rod Collins M.D. [address] [place] [phone] [facility] Referral ID Status Reason Start [...] Closed Initial (HCC) Rod Collins M.D. [address] [place] [phone] [facility] Referral ID Status Reason Start Date Expiration Date V isits Requested Visits Authorized [id number] Authorized 01/28/2024 07/29/2025 1 1 Scheduling Instructions Ideally schedule after RN Education Session 1 and before RN Education Session 2. If Stress schedules are full, okay to schedule after RN Education Session 2. * Specialty Diagnoses / Procedures Referred By Contson t Referred To Contact Rod Collins M.D. [address] [place] [phone] [facility] Referral ID Status Reason Start [...] Physical Therapy (Clinic) Rod Collins M.D. [address] [place] [phone] [facility] Referral ID Status Reason Start Date Expiration Date V isits Requested Visits Authorized [id number] Authorized 01/28/2024 01/27/2025 99 99 * Specialty Diagnoses / Procedures Referred By Osorio t Referred To Contact Rod Collins M.D. [address] [place] [phone] [facility] Referral ID Status Reason Start Date Expiration Date Visits Re quested Visits Authorized Scheduling Instructions Schedule after RN Education Session 1 and before RN Education Session 2. * Specialty Diagnoses / Procedures Referred By Osorio t Referred To Contact Rod Collins M.D. [address] [place] [phone] Referral ID Status Reason Start Date Expiration Date Visits Re quested Visits Authorized * Outpatient (Routine) - Authorized Specialty Diagnoses / Procedures Referred By Contac t Referred To Contact Integrative Medicine Diagnoses Pain Back Fracture Vertebra Compression Thoracic Closed Initial (HCC) Rod Collins M.D. [address] [place] [phone] [facility] Referral ID Status Reason Start Date Expiration Date V isits Requested Visits Authorized [id number] Authorized 01/28/2024 07/29/2025 1 1 Reason for Visit * Outpatient (Routine) - Closed Specialty Diagnoses / Procedures Referred By Osorio guevara Referred To Contact Endocrinology Diagnoses Pain Back Fracture Vertebra Compression Thoracic Closed Initial (HCC) Jesus Feng APRN, C.N.P. [address] [place] [phone] [facility] Referral ID Status Reason Start Date Expiration Date Visits Re quested Visits Authorized [id number] Closed 10/28/2023 04/28/2025 1 1 Encounter Details Date Type Department Care Team (Latest Contact Info) Description 01/28/2024 9:00 AM CDT Comprehensive Visit Division of Endocrinology in [place], [place] [address] [place] [phone] Jesus Fegn APRN, C.N.P. [address] [place] [phone] Rod Collins M.D. [address] [place] [phone] Osteoporosis (Primary Dx); Pain Back; Fracture Vertebra [...] 1 08/15/2022 [facility] Occupat ional Health - Occupational Stress [...] your living situation today? I have a [facility] place to live 04/10/2023 Education Answer Date Recorded What is the highest level of school you have completed or the highest degree you have received? 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 GAIT: Decreased sitting and standing balance. [id number] with assistance Labs: Lab Results Component Value [...] evenity at thistime (No known history of VA or stroke). We will plan on doing [...] Department of Physical Medicine and Rehabilitation in [place] [address] [place] [address] Rod Collins M.D. [address] [place] [address] Elana Winters P, P.T. [address] [place] [phone] 03/24/2024 12:45 PM CDT Clinical Support Department of Physical Medicine and Rehabilitation in [place] [address] [place] [address] Rod Collins M.D. [address] [place] [phone] Elana Winters P, P.T. [address] [place] [phone] 03/31/2024 12:45 PM CDT Clinical Support Department of Physical Medicine and Rehabilitation in [place] [address] [place] [address] Rod Collins M.D. [address] [place] [phone] Elana Winters P, P.T. [facility] [place] [address] 04/07/2024 12:45 PM CDT Clinical Support Department of Physical Medicine and Rehabilitation in [place], [place] [address] [place] [address] Rod Collins M.D. [address] [place] [phone] Elana Winters, P.T. [address] [place] [phone] 04/14/2024 12:45 PM CDT Clinical Support Department of Physical Medicine and Rehabilitation in [place], [place] [address] [place] [address] Rod Collins M.D. [address] [place] [phone] Elana Winters P, P.T. [address] [place] [phone] 04/21/2024 12:45 PM CDT Clinical Support Department of Physical Medicine and Rehabilitation in [place], [place] [address] [place] [address] Rod Collins M.D. [address] [place] [phone] Elana Winters, P.T. [facility] [place] [address] 04/28/2024 12:45 PM CDT Clinical Support Department of Physical Medicine and Rehabilitation in [place], [place] [address] [place] [phone] Rod Collins M.D. [address] [place] [address] Elana Winters, P.T. [address] [place] [address] Scheduled Orders Name Type Priority Associated Diagnoses [...] developed and its performance characteristics determined by [facility] in a manner consistent with CLIA requirements. This test has not been cleared or approved by the U.S. Food and Drug Administration. Blood (Blood, Venous) 01/28/2024 10:16 AM CDT 01/28/2024 2:02 PM CDT Narrative [facility] - 01/29/2024 12:53 PM CDT Specimen Information: Specimen ID: [id number] Specimen Type: Blood Specimen Collection Start Date: 01/28/2024 10:16 AM Specimen Received Date: 01/28/2024 ??2:02 PM Specimen ID: [id number] Specimen Type: Blood Specimen Collection Start Date: 01/28/2024 10:16 AM Specimen Received Date: 01/28/2024 ??1:55 PM Rod Perales M.D. LAB BLOOD ADD-ON Performing Organization Address [facility] Co de Phone Number [facility] [address] [place] [address] [facility] [address] [place] [address] [place] [id number] [place] [address] [place] [address] * Celiac Disease Serology Bureau (01/28/2024 10:16 AM CDT) [facility] Immunoglobulin A (IgA), S 304 61 - 356 mg/dL 01/28/2024 2:56 PM CDT [facility] Celiac Disease Interpretation See Comment: Negative serology. Celiac disease unlikely. However, approximately 10% of patients with celiac disease are seronegative. Also, patients who are already adhering to a gluten-free diet may be seronegative. If celiac disease is highly clinically suspected, consider HLA-DQ typing. 01/28/2024 9:15 PM CDT [facility] Blood (Blood, Venous) 01/28/2024 10:16 AM CDT 01/28/2024 2:02 PM CDT Narrative [facility] - 01/28/2024 9:15 PM CDT Specimen Information: Specimen ID: [id number] Specimen Type: Blood Specimen Collection Start Date: 01/28/2024 10:16 AM Specimen Received Date: 01/28/2024 ??2:02 PM Specimen ID: [id number] Specimen Type: Blood Specimen Collection Start Date: 01/28/2024 10:16 AM Specimen Received Date: 01/28/2024 ??2:00 PM Rod Perales M.D. LAB BLOOD ADD-ON [facility] [address] [place] [address] [facility] [address] [place] [address] [facility] [address] [place] [address] [place] [address] * Cortisol (01/28/2024 10:16 AM CDT) Cortisol, Random, S 12 mcg/dL 01/28/2024 11:09 AM CDT [facility] Comment: ----REFERENCE VALUE---- AM ([phone]): 4.8-20 PM ([phone]): 2.5-12 Blood (Blood, Venous) 01/28/2024 10:16 AM CDT 01/28/2024 10:42 AM CDT Rod Perales M.D. LAB BLOOD ADD-ON Performing Organization Address City/[facility]/ZIP Co de Phone Number [facility] [address] [place] [address], [facility] [address] [place] [address] * Rheumatoid Factor (01/28/2024 10:16 AM CDT) Pathologist [facility] Rheumatoid Factor, S <15 <15 IU/mL 01/28/2024 3:40 PM CDT [facility] Blood (Blood, Venous) 01/28/2024 10:16 AM CDT 01/28/2024 3:01 PM CDT Rod Perales M.D. LAB BLOOD ADD-ON [facility] [address] [place] [address] [facility] [address] [place] [address] * CK (Creatine Kinase) (01/28/2024 10:16 AM CDT) Creatine Kinase (CK), S 116 26 - 192 U/L 01/28/2024 11:09 AM CDT DTL Blood (Blood, Venous) 01/28/2024 10:16 AM CDT 01/28/2024 10:42 AM CDT oRd Perales M.D. LAB BLOOD ADD-ON [facility] [address] [place], [place] [address] [address] [place] [address] * (ABNORMAL) Thyroid Function Bureau (01/28/2024 10:16 AM CDT) TSH, Sensitive 4.4(H) 0.3 - 4.2 mIU/L 01/28/2024 11:09 AM CDT DTL Blood (Blood, Venous) 01/28/2024 10:16 AM CDT 01/28/2024 10:42 AM CDT Rod Perales M.D. LAB BLOOD ADD-ON Performing Organization Address City/[facility]/ZIP Co de Phone Number [facility] [address] [place], [place] [address] [address] [place] [address] * CRP (C-Reactive Protein) (01/28/2024 10:16 AM CDT) C-Reactive Protein (CRP), S <3.0 <5.0 mg/L 01/28/2024 11:09 AM CDT DTL Blood (Blood, Venous) 01/28/2024 10:16 AM CDT 01/28/2024 10:42 AM CDT Rod Perales M.D. LAB BLOOD ADD-ON [facility] [address] [place], [place] [address] [address] [place] [address] * Sedimentation Rate (01/28/2024 10:16 AM CDT) Sedimentation Rate, B 8 3 - 28 mm/h 01/28/2024 11:48 AM CDT DT Blood (Blood, Venous) 01/28/2024 10:16 AM CDT 01/28/2024 10:30 AM CDT Rod Perales M.D. LAB BLOOD ADD-ON [facility] [address] [place] [address], [facility] [address] [place] [address] * Dehydroepiandrosterone Sulfate (DHEA-S) (01/28/2024 10:16 AM CDT) Dehydroepiandrosterone Sulfate, S 72 5.3 - 124 mcg/dL 01/28/2024 3:53 PM CDT [facility] Blood (Blood, Venous) 01/28/2024 10:16 AM CDT 01/28/2024 2:58 PM CDT Rod Perales M.D. LAB BLOOD ADD-ON [facility] [address] [place] [address] [facility] [address] [place] [address] * Ferritin (01/28/2024 10:16 AM CDT) Ferritin, S 262 11 - 328 mcg/L 01/28/2024 11:09 AM CDT DT Blood (Blood, Venous) 01/28/2024 10:16 AM CDT 01/28/2024 10:42 AM CDT Rod Perales M.D. LAB BLOOD ADD-ON [facility] [address] [place] [address], [place] DTL [facility] [address] [place] [address] * Connective Tissue Diseases Bureau (01/28/2024 10:16 AM CDT) [facility] Antinuclear Ab, S 0.1 <=1.0 (Negative ) U 01/28/2024 7:56 PM CDT [facility] Comment: ----ADDITIONAL INFORMATION---- Method: Enzyme-linked immunoassay using HEp-2 nuclear extract supplemented with purified antigens. Cyclic Citrullinated Peptide Ab, S <15.6 <20.0 (Negative ) U 01/28/2024 6:40 PM CDT [facility] Interpretation SEE COMMENT 7:56 PM CDT [facility] Comment: Tests for antibodies to dsDNA and DERIC antigens are not performed automatically unless the TERRI result is > or = 3.0 U. ??Studies performed at [facility] indicate that positive TERRI results <3.0 U are rarely accompanied by positive second order tests. Blood (Blood, Venous) 01/28/2024 10:16 AM CDT 01/28/2024 1:59 PM CDT Rod Perales M.D. LAB BLOOD ADD-ON [facility] [address] [place] [address] [facility] [address] [place] [address] * (ABNORMAL) Comprehensive Metabolic Panel (01/28/2024 10:16 AM CDT) [facility] Potassium, S 4.4 3.6 - 5.2 [...] CDT Rod Perales M.D. LAB BLOOD ADD-ON [facility] [address] [place] [address], [facility] DTL [facility] [address] [place] [address] * (ABNORMAL) CBC with Differential, Blood (01/28/2024 [...] CDT Rod Perales M.D. LAB BLOOD ADD-ON [facility] [address] [place] [address], [facility] DTL [facility] [address] [place] [address] [facility] [address] [place] [address] * (ABNORMAL) 25-Hydroxyvitamin D2 and D3 (01/28/2024 [...] developed and its performance characteristics determined by [facility] in a manner consistent with CLIA requirements. This test has not been cleared or approved by the U.S. Food and Drug Administration. Blood (Blood, Venous) 01/28/2024 10:16 AM CDT 01/28/2024 1:32 PM CDT Rod Perales M.D. LAB BLOOD ADD-ON [facility] SUPPORT HELEN [address] [place] [address] [facility] [address] [place] [address] 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 [address] [place] [phone] PCP - General Family Medicine 09/08/21 documented as of this encounter
--- OUTSIDE RECORDS SUMMARY | 2024-03-14 11:37 | XMS_ITS | Encounter Summary ---
Author Organization [facility] Address [address] [place] [address] Care Team Providers Care Mixing Engineer Name Role Phone Erinn Reina M.D. Primary Care Provider [phone] Reason for Referral * Cardiovascular-Diagnostic (Routine) - Closed Specialty Diagnoses / Procedures Referred By Contac t Referred To Contact Diagnoses Dilated Aortic Root (HCC) Dyspnea Multifactorial Procedures Echo Transthoracic (TTE) Vitor Calle M.D. [address] [place] [address] [facility] Referral ID Status Reason Start Date Expiration Date Visits Re quested Visits Authorized [id number] Closed 10/09/2023 10/08/2024 1 1 Reason for Visit * Cardiovascular-Diagnostic (Routine) - Closed Specialty Diagnoses / Procedures Referred By Osorio guevara Referred To Contact Diagnoses Dilated Aortic Root (HCC) Dyspnea Multifactorial Procedures Echo Transthoracic (TTE) Vitor Calle M.D. [address] [place] [address] [facility] Region Referral ID Status Reason Start Date Expiration Date Visits Re quested Visits Authorized [id number] Closed 10/09/2023 10/08/2024 1 1 Encounter Details Date Type Department Care Team (Latest Contact Info) Description 01/01/2024 1:14 PM CDT - 01/01/2024 11:59 PM CDT Hospital Encounter Department of Cardiovascular Diseases in [place], [place] [address] [facility] [place] [phone] Vitor Calle M.D. 300 [place] [phone] Dilated Aortic Root (HCC); Dyspnea Multifactorial Discharge [...] often do you attend chur ch or jehovah's witness services? 1 to 4 [...] Answer Date Recorded PHQ-2 Score 1 08/15/2022 [facility] [place] of Occupat ional Health - Occupational Stress [...] Sex Assigned at Female 10/24/2023 10:51 PM CUSTOM BOW MAKER Gender Identity Female 02/10/2019 11:51 AM CDT [...] 2023 fluticasone-umeclidiniu m-vilanterol (Trelegy Ellipta) 100-62.5-25 mcg/actuation inhalerIndications:Clinic Assistant padmini Obstructive Pulmonary Disease Moderate (HCC) Inhale [...] mouth daily. 01/19/2023 Ventolin HFA 90 mcg/actuation inhalerIndications:Clinic Assistant padmini Obstructive Pulmonary Disease (HCC),Dyspnea Multifactorial Inhale 2 puffs every 4 (four) hours as needed for wheezing or shortness of breath. 18 g 11 11/08/2023 11/07/2024 documented as of this encounter Plan of Treatment Upcoming Encounters Date Type Department Care Team (Late st Contact Info) Description 03/17/2024 9:15 AM CDT Clinical Support Department of Physical Medicine and Rehabilitation in [place], [place] [address] [place] [address] Rod Collins M.D. [address] [place] [phone] Elana Winters P, P.T. [address] [place] [phone] 03/24/2024 12:45 PM CDT Clinical Support Department of Physical Medicine and Rehabilitation in [place], [place] [address] [place] [address] Rod Collins M.D. [address] [place] [phone] Elana Winters P, P.T. [address] [place] [phone] 03/31/2024 12:45 PM CDT Clinical Support Department of Physical Medicine and Rehabilitation in [place], [place] [address] [place] [address] Rod Collins M.D. [address] [place] [phone] Elana Winters P, P.T. [address] [place] [phone] 04/07/2024 12:45 PM CDT Clinical Support Department of Physical Medicine and Rehabilitation in [place], [place] [address] [place] [address] Rod Collins M.D. [address] [place] [phone] Elana Winters, P.T. [address] [place] [phone] 04/14/2024 12:45 PM CDT Clinical Support Department of Physical Medicine and Rehabilitation in [place], [place] [address] [place] [address] Rod Collins M.D. [address] [place] [phone] Elana Winters, P.T. [address] [place] [phone] 04/21/2024 12:45 PM CDT Clinical Support Department of Physical Medicine and Rehabilitation in [place], [place] [address] [place] [address] Rod Collins M.D. [address] [place] [phone] Elana Winters, P.T. [address] [place] [phone] 04/28/2024 12:45 PM CDT Clinical Support Department of Physical Medicine and Rehabilitation in [place], [place] [address] [place] [address] Rod Collins M.D. [address] [place] [address] Elana Winters, P.T. [address] [place] [phone] documented as of this encounter Procedures Procedure [...] ratio). Calculated 2-D linear left ventricular ejection [id number]%. No regional wall motion abnormalities. Grade 1a/3 [...] Total Score: 6 08/15/20 22 2:06 AM CUSTOM BOW MAKER documented as of this encounter Care Teams Mixing Engineer Relationship Specialty Start Date End Date Erinn Reina M.D. [address] [place] [phone] PCP - General Family Medicine 09/08/21 documented as of this encounter
--- OUTSIDE RECORDS SUMMARY | 2024-03-14 11:37 | XMS_ITS | Encounter Summary ---
Author Organization [facility] Address [address] [place] [address] Care Team Providers Care Director Of Child Welfare Services Name Role Phone Erinn Reina M.D. Primary Care Provider [phone] Reason for Visit * Physical Therapy (Routine) - Canceled Specialty Diagnoses / Procedures Referred By Osorio guevara Referred To Contact Diagnoses Fibromyalgia Pain Low Back Unspecified Procedures PT Ongoing treatment Tony Schwartz P.AAnn-Marie-CAnn-Marie [address] [place] [address] [facility] Region Referral ID Status Reason Start Date Expiration Date V isits Requested Visits Authorized [id number] Canceled 06/07/2023 06/06/2024 99 99 Encounter Details Date Type Department Care Team (Latest Contact Info) Description 12/26/2023 10:45 AM CDT Clinical Support Department of Physical Medicine and Rehabilitation in [place], [place] [address] [place] [phone] Tony Schwartz, PAnn-MarieA.-CAnn-Marie [address] [place] [phone] Elana Winters, P.TAnn-Marie [address] [place] [phone] Fibromyalgia (Primary Dx); Pain Low Back Unspecified [...] How often do you attend chur or congregation services? 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 Patient verbalizes she remembers the exercises. [employer]: [email or web address] Access Code: [email or web address] Patient reports fair HEP [...] Department of Physical Medicine and Rehabilitation in [place], [place] [address] [place] [address] Rod Collins M.D. [address] [place] [address] Elana Winters, P.T. [address] [place] [phone] 03/24/2024 12:45 PM CDT Clinical Support Department of Physical Medicine and Rehabilitation in [place], [place] [address] [place] [address] Rod Collins M.D. [address] [place] [phone] Elana Winters P, P.T. [address] [place] [phone] 03/31/2024 12:45 PM CDT Clinical Support Department of Physical Medicine and Rehabilitation in [place] [address] [place] [address] Rod Collins M.D. [address] [place] [phone] Elana Winters P, P.T. [address] [place] [phone] 04/07/2024 12:45 PM CDT Clinical Support Department of Physical Medicine and Rehabilitation in [place], [place] [address] [place] [address] Rod Collins M.D. [address] [place] [phone] Elana Winters P, P.T. [address] [place] [phone] 04/14/2024 12:45 PM CDT Clinical Support Department of Physical Medicine and Rehabilitation in [place], [place] [address] [place] [address] Rod Collins M.D. [address] [place] [phone] Elana Winters, P.T. [address] [place] [address] 04/21/2024 12:45 PM CDT Clinical Support Department of Physical Medicine and Rehabilitation in [place], [place] [address] [address] Rod Collins M.D. [address] [place] [phone] Elana Winters, P.T. [address] [place] [address] 04/28/2024 12:45 PM CDT Clinical Support Department of Physical Medicine and Rehabilitation in [place], [place] [address] [address] Rod Collins M.D. [address] [place] [address] Elana Winters, P.T. [address] [place] [phone] documented as of this encounter Visit Diagnoses Diagnosis Fibromyalgia- Primary Pain Low Back Unspecified documented in this encounter Additional Health Concerns Assessment Noted Time PHQ-9 Depression Total Score: 6 08/15/20 22 2:06 AM EDITORIAL SPECIALIST documented as of this encounter Care Teams Director Of Child Welfare Services Relationship Specialty Start Date End Date Erinn Reina M.D. [address] [place] [address] [place] [address] PCP - General Family Medicine 09/08/21 documented as of this encounter
--- OUTSIDE RECORDS SUMMARY | 2024-03-14 11:37 | XMS_ITS | Encounter Summary ---
Author Organization [facility] Address [address] [place] [address] Care Team Providers Care Cap Jewel Plate Assembler Name Role Phone Erinn Reina M.D. Primary Care Provider [phone] Encounter Details Date Type Department Care Team (Late st Contact Info) Description 11/15/2023 Clinical Communication [facility] in [place], [place] [address] [place] [address] Arjun Umana M.D. [address] [place] [address] Social History Tobacco Use Types Packs/Day Years [...] often do you attend chur ch or congregation services? 1 to 4 times per year 03/05/2022 Do you belong to any clubs o r organizations such as congregational groups, unions, fraternal or athletic groups, or [...] Answer Date Recorded PHQ-2 Score 1 08/15/2022 [facility] of Occupat ional [facility] - Occupational Stress Questionnaire Answer Date [...] your living situation today? I have a [facility] place to live 04/10/2023 Education Answer Date Recorded What is the highest level of school you have completed or the highest degree you have received? 12th grade 04/14/2019 Sex and Gender Information Value Date Recorded Sex Assigned at Female 10/24/2023 10:51 PM WRITING TUTOR Gender Identity Female 02/10/2019 11:51 AM CDT Sexual Orientation Straight 02/10/2019 11 :51 AM CDT documented as of this encounter Plan of Treatment Upcoming Encounters Date Type Department Care Team (Late st Contact Info) Description 03/17/2024 9:15 AM CDT Clinical Support Department of Physical Medicine and Rehabilitation in [place], [place] [address] [place] [address] Rod Collins M.D. [address] [place] [address] Elana Winters, P.T. [address] [place] [address] 03/24/2024 12:45 PM CDT Clinical Support Department of Physical Medicine and Rehabilitation in [place], [place] [address] [place] [address] Rod Collins M.D. [address] [place] [phone] Elana Winters P, P.T. [address] [place] [address] 03/31/2024 12:45 PM CDT Clinical Support Department of Physical Medicine and Rehabilitation in [place], [place] [address] [place] [address] Rod Collins M.D. [address] [place] [phone] Elana Winters, P.T. [address] [place] [phone] 04/07/2024 12:45 PM CDT Clinical Support Department of Physical Medicine and Rehabilitation in [place], [place] [address] [place] [address] Rod Collins M.D. [address] [place] [phone] Elana Winters P, P.T. [address] [place] [phone] 04/14/2024 12:45 PM CDT Clinical Support Department of Physical Medicine and Rehabilitation in [place], [place] [address] [place] [address] Rod Collins M.D. [address] [place] [phone] Elana Winters, P.T. [facility] [place] [address] 04/21/2024 12:45 PM CDT Clinical Support Department of Physical Medicine and Rehabilitation in [place], [place] [address] [place] [address] Rod Collins M.D. [address] [place] [phone] Elana Winters P, P.T. [address] [place] [address] 04/28/2024 12:45 PM CDT Clinical Support Department of Physical Medicine and Rehabilitation in [place], [place] [address] [place] [address] Rod Collins M.D. [address] [place] [phone] Elana Winters P, P.T. [address] [place] [phone] documented as of this encounter Visit Diagnoses Diagnosis Chronic Obstructive Pulmonary Disease Moderate (HCC)- Primary documented in this encounter Additional Health Concerns Assessment Noted Time PHQ-9 Depression Total Score: 6 08/15/20 22 2:06 AM WRITING TUTOR documented as of this encounter Care Teams Cap Jewel Plate Assembler Relationship Specialty Start Date End Date Erinn Reina M.D. [address] [place] [address] [place] [address] PCP - General Family Medicine 09/08/21 documented as of this encounter
--- OUTSIDE RECORDS SUMMARY | 2024-03-14 11:37 | XMS_ITS | Encounter Summary ---
Author Organization [facility] Address [address] [place] [address] Care Team Providers Care Bobbin Hauler Name Role Phone Erinn Reina M.D. Primary Care Provider [phone] Reason for Referral * Outpatient (Routine) - Authorized Specialty Diagnoses / Procedures Referred By Osorio guevara Referred To Contact Erinn Reina M.D. [address] [place] [phone] [facility] Region Referral ID Status Reason Start Date Expiration Date V isits Requested Visits Authorized [id number] Authorized 01/07/2024 07/08/2025 1 1 Scheduling Instructions Nurse AWV Do not schedule prior to due date to ensure insurance coverage Visit: Medicare Annual Wellness Never done. * Outpatient (Routine) - Authorized Specialty Diagnoses / Procedures Referred By Osorio guevara Referred To Contact Family Medicine Erinn Reina M.D. [address] [place] [address] [facility] Region Referral ID Status Reason Start Date Expiration Date V isits Requested Visits Authorized [id number] Authorized 01/07/2024 07/08/2025 1 1 Scheduling Instructions Medicare annual provider visit/HCC gaps Do not schedule prior to due date to ensure insurance coverage Visit: Medicare Annual Wellness Never done. Encounter Details Date Type Department Care Team (Late st Contact Info) Description 01/07/2024 Orders Only [facility] [place] Erinn Reina M.D. [address] [place] [address] [place] [phone] Social History Tobacco Use Types Packs/Day Years [...] How often do you attend chur or alevism services? 1 to 4 times per year [...] Date Recorded PHQ-2 Score 1 08/15/2022 [facility] - Occupational Stress Questionnaire Answer Date [...] Sex Assigned at Female 10/24/2023 10:51 PM CO FOUNDER AND CHIEF STRATEGY OFFICER Gender Identity Female 02/10/2019 11:51 AM CDT Sexual Orientation Straight 02/10/2019 11 :51 AM CDT documented as of this encounter Plan of Treatment Upcoming Encounters Date Type Department Care Team (Late st Contact Info) Description 03/17/2024 9:15 AM CDT Clinical Support Department of Physical Medicine and Rehabilitation in [place], [place] [address] [place] [address] Rod Collins M.D. [address] [place] [address] Elana Winters P, P.T. [address] [place] [address] 03/24/2024 12:45 PM CDT Clinical Support Department of Physical Medicine and Rehabilitation in [place], [place] [address] [place] [address] Rod Collins M.D. [address] [place] [address] Elana Winters P, P.T. [address] [place] [address] 03/31/2024 12:45 PM CDT Clinical Support Department of Physical Medicine and Rehabilitation in [place], [place] [address] [place] [address] Rod Collins M.D. [address] [place] [address] Elana Winters P, P.T. [address] [place] [address] 04/07/2024 12:45 PM CDT Clinical Support Department of Physical Medicine and Rehabilitation in [place], [place] [address] [place] [address] Rod Collins M.D. [address] [place] [phone] Elana Winters, P.T. [address] [place] [address] 04/14/2024 12:45 PM CDT Clinical Support Department of Physical Medicine and Rehabilitation in [place], [place] [address] [place] [address] Rod Collins M.D. [address] [place] [phone] Elana Winters, P.T. [address] [place] [address] 04/21/2024 12:45 PM CDT Clinical Support Department of Physical Medicine and Rehabilitation in [place], [place] [address] [place] [address] Rod Collins M.D. [address] [place] [phone] Elana Winters, P.T. [place] [address] 04/28/2024 12:45 PM CDT Clinical Support Department of Physical Medicine and Rehabilitation in [place], [place] [address] [place] [address] Rod Collins M.D. [address] [place] [phone] Elana Winters, P.T. [address] [employer] [facility] [place] [address] Scheduled Referrals Name Type Priority Associated Diagnoses Orde r Schedule Family Medicine office visit (clinic) Outpatient Referral Routine Expected: 02/04/2024, Expires: 07/05/2024 Primary Care nurse visit (clinic) - [facility]; Medicare Annual Wellness Outpatient Referral Routine Expected: 02/04/2024, Expires: 07/05/2024 documented as of this encounter Visit Diagnoses Not on filedocumented in this encounter Additional Health Concerns Assessment Noted Time PHQ-9 Depression Total Score: 6 08/15/20 22 2:06 AM CO FOUNDER AND CHIEF STRATEGY OFFICER documented as of this encounter Care Teams Bobbin Hauler Relationship Specialty Start Date End Date Erinn Reina M.D. [address] [place] [address] [place] [address] PCP - General Family Medicine 09/08/21 documented as of this encounter
[2024-03-14 12:17] LABS: Basophils Absolute Auto 0.02 K/uL (0.00-0.30); Basophils Percent Auto 0.2 % (0.0-3.0); Eosinophils Absolute Auto 0.04 K/uL (0.00-0.50); Eosinophils Percent Auto 0.4 % (0.0-7.0); Hematocrit 43.2 % (33.0-51.0); Hemoglobin* 13.1 gm/dL (12.0-16.0); Immature Granulocytes Abs Auto 0.02 K/uL (0.00-0.30); Immature Granulocytes Pct Auto 0.2 %; Lymphocytes Percent Auto 7.9 % (20-44); Mean Corpuscular HGB Conc 30 gm/dL (32-36); Mean Corpuscular Hemoglobin 30 pg (26-34); Mean Corpuscular Volume 98 fL (80-100); Monocytes Percent Auto 8.4 % (0.0-11.0); Neutrophils Percent Auto 82.9 % (42.0-72.0); Platelet Count* 220 K/uL (140-440); RDW Coefficient of Variation % 16.7 % (11.5-15.5); Red Blood Count 4.39 m/uL (4.00-5.20); White Blood Count* 9.22 K/uL (4.50-11.00)
[2024-03-14 12:26] LABS: Slide Review Reflex No
--- NOTE | 2024-03-14 12:30 | CRLHL7_ITS ---
For Patients: As a result of the Cures Act, medical imaging exams and procedure reports are released immediately into your electronic medical record. You may view this report before your referring provider. If you have questions, please contact your health care provider. INDICATION: Fracture. TECHNIQUE: Intraoperative C-arm fluoroscopy. IMPRESSION: Intraoperative C-arm fluoroscopy was provided. Fluoroscopy time 12.6 seconds. Three images were captured. Dictated by Raheel Berger MD @ 03/16/2024 7:42:41 AM (Electronically Signed)
[2024-03-14 12:33] LABS: Chloride* 99 mmol/L (96-114); Potassium* 4.6 mmol/L (3.6-5.1); Sodium* 139 mmol/L (135-149)
[2024-03-14 12:35] LABS: INR 0.89 (0.91-1.10); Prothrombin Time 12.5 Seconds
[2024-03-14 12:36] LABS: Anion Gap 5 mEq/L (7-15); Carbon Dioxide* 35 mmol/L (20-32); Creatinine* 0.7 mg/dL (0.5-1.5); Est. Creatinine Clearance* 33.29; Estimated Glomerular Filt Rate 88 ml/min
[2024-03-14 12:37] LABS: Blood Urea Nitrogen* 15 mg/dL (7-30); Calcium* 8.9 mg/dL (8.4-10.6); Glucose* 118 mg/dL (60-115)
[2024-03-14] MEDS: CEFAZOLIN 1 GM inj IVP (13:15)
[2024-03-14] MEDS: LACTATED RINGERS 1000 ML 1,000 ML 125 ML IV (13:30)
--- NOTE | 2024-03-14 14:36 | REH.OT ---
OT orders for evaluate and treat. Patient in surgery, will reschedule for tomorrow.
--- NOTE | 2024-03-14 14:42 | CRLHL7_ITS ---
For Patients: As a result of the Cures Act, medical imaging exams and procedure reports are released immediately into your electronic medical record. You may view this report before your referring provider. If you have questions, please contact your health care provider. Indication: Right hip arthroplasty Technique: Pelvis and right hip 2 view Findings: Hardware from a right hip arthroplasty is in satisfactory position. Bone alignment is normal. No sign of acute fracture. There are postoperative changes in the soft tissues. Dictated by Raheel Berger MD @ 03/16/2024 7:43:27 AM (Electronically Signed)
--- NOTE | 2024-03-14 14:47 | P.ORCN_ITS ---
History of Present Illness HPI Date Seen: 03/14/24 Chief complaint: Fall with Resulting Hip Fracture Narrative: The patient is a 79-year-old community ambulator without assist. She fell, sustaining a right femoral neck fracture. She has never injured this hip or had surgery on it previously. She is on continuous oxygen for COPD. She is not on blood thinners and does not have diabetes. She continues to smoke. She has been medically cleared for surgery. Review of Systems Narrative: The patient denies: Fever, night sweats, shaking chills, nausea, vomiting, diarrhea, chest pain, chest pressure, no rash, no change in hearing or vision, no issues with bleeding or clotting She gets short of breath with exertion [facility] Medical History Normal cardiac stress test (~01/2023) ALLIE (obstructive sleep apnea) ?G47.33 - Obstructive sleep apnea (adult) (pediatric) (ICD-10) Iron deficiency anemia (2019) ?D50.9 - Iron deficiency anemia, unspecified (ICD-10) Subarachnoid hemorrhage following injury (10/2018) ?S06.6XAA - Traumatic subarachnoid hemorrhage with loss of consciousness status unknown, initial encounter (ICD-10) Ascending aorta dilation ?I77.810 - Thoracic aortic ectasia (ICD-10) Dyspnea on exertion ?R06.09 - Other forms of dyspnea (ICD-10) B12 deficiency ?E53.8 - Deficiency of other specified B group vitamins (ICD-10) TIA (transient ischemic attack) (~2018) ?G45.9 - Transient cerebral ischemic attack, unspecified (ICD-10) Pulmonary hypertension ?I27.20 - Pulmonary hypertension, unspecified (ICD-10) Hearing loss of both ears ?H91.93 - Unspecified hearing loss, bilateral (ICD-10) IBS (irritable bowel syndrome) ?K58.9 - Irritable bowel syndrome without diarrhea (ICD-10) Macular degeneration ?H35.30 - Unspecified macular degeneration (ICD-10) Weakness generalized ?R53.1 - Weakness (ICD-10) Thyroid nodule ?E04.1 - Nontoxic single thyroid nodule (ICD-10) Osteopenia ?M85.80 - Other specified disorders of bone density and structure, unspecified site (ICD-10) Depression ?F32.A - Depression, unspecified (ICD-10) Diastolic heart failure (10/2022) ?I50.30 - Unspecified diastolic (congestive) heart failure (ICD-10) Essential hypertension ?I10 - Essential (primary) hypertension (ICD-10) Cigarette nicotine dependence ?F17.210 - Nicotine dependence, cigarettes, uncomplicated (ICD-10) NYHA class 3 heart failure with preserved ejection fraction ?I50.30 - Unspecified diastolic (congestive) heart failure (ICD-10) Fibromyalgia ?M79.7 - Fibromyalgia (ICD-10) Chronic back pain ?M54.9 - Dorsalgia, unspecified (ICD-10) ?G89.29 - Other chronic pain (ICD-10) COPD (chronic obstructive pulmonary disease) ?J44.9 - Chronic obstructive pulmonary disease, unspecified (ICD-10) Acute on chronic respiratory failure with hypoxia and hypercapnia (12/20/22) ?J96.21 - Acute and chronic respiratory failure with hypoxia (ICD-10) ?J96.22 - Acute and chronic respiratory failure with hypercapnia (ICD-10) Surgical History History of colonoscopy with polypectomy ?Z98.890 - Other specified postprocedural states (ICD-10) ?Z86.010 - Personal history of colonic polyps (ICD-10) 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 Long time and current smoker, not ready to quit What is your current living situation?: I presently have a place to live Problems where you live: no known problems Problems where you live details: n/a In the past 12 months, utilities in danger of being shut off: no In past 12 months, lack of transportation kept you from medical appts, meetings, work, or getting things needed for daily living: no In the past 12 mos, have been you worried that your food would run out before you had money to buy more?: never true In the past 12 mos, the food you bought just didn't last and you didn't have money to buy more?: never true Smoking Status: Current every day smoker What tobacco products do you use: cigarettes Smoking packs per day: 0.5 Smoking cigarettes per day: 10.0 Do you use any of these nicotine containing products: None Second hand tobacco smoke exposure: No How often do you have a drink containing alcohol: 2-3 times a week Alcohol type: wine Alcohol type details: 1 glass of wine a night How many standard drinks containing alcohol do you have on a typical day: 1 or 2 How often do you have six or more drinks on one occasion: Never AUDIT-C Alcohol total score: 3 Non-prescribed substance use: denies use Caffeine: Yes How often does anyone, including family, friends and others, physically hurt you : never How often does anyone, including family, friends and others, insult or talk down to you: never How often does anyone, including family, friends and others, threaten you with harm: never How often does anyone, including family, friends and others, scream or curse at you: never Little interest or pleasure in doing things: more than half the days Feeling down, depressed, or hopeless: more than half the days service: No Meds Home Medications and Allergies Home Medications ?Medication ?Instructions ?Recorded ?Confirmed ?Type albuterol sulfate 90 mcg/actuation 2 puff inhalation Q4H PRN 04/24/22 03/14/24 History aerosol inhaler (Ventolin HFA) cyanocobalamin (vitamin B-12) 1,000 mcg IM Q30D 12/18/22 03/14/24 History 1,000 mcg/mL injection kit fexofenadine-pseudoephedrine ER 1 tab PO DAILY PRN 12/18/22 03/14/24 History 180 mg-240 mg tablet,ext.release 24 hr (24HR Allergy-Congestion Relief) fluticasone propionate 50 2 spray intranasal DAILY PRN 12/18/22 03/14/24 History mcg/actuation nasal spray,suspension ipratropium 0.5 mg-albuterol 3 mg 3 ml inhalation QID PRN 12/18/22 03/14/24 History (2.5 mg base)/3 mL nebulization soln acetaminophen 500 mg capsule 1,000 mg PO Q6H PRN 11/28/23 03/14/24 History aspirin 81 mg tablet,delayed 81 mg PO DAILY 11/28/23 03/14/24 History release rosuvastatin 10 mg tablet 10 mg PO HS 11/28/23 03/14/24 History torsemide 20 mg tablet 20 mg PO DAILY 11/28/23 03/14/24 History spironolactone 25 mg tablet PO 03/06/24 History cholecalciferol (vitamin D3) 25 25 mcg PO DAILY 03/14/24 03/14/24 History mcg (1,000 unit) tablet duloxetine 20 mg capsule,delayed 20 mg PO DAILY 03/14/24 03/14/24 History release (Cymbalta) fluticasone fur. 100 mcg-umeclid 1 ea inhalation DAILY 03/14/24 03/14/24 History 62.5 mcg-vilant 25 mcg inhalat.powder (Trelegy Ellipta) Allergies Allergy/AdvReac Type Severity Reaction Status Date / Time erythromycin base Allergy Intermediate dry heaves Verified 03/06/24 10:01 Penicillins Allergy Intermediate Shortness Verified 03/06/24 10:01 of Breath & Fainting tetanus toxoid, adsorbed Allergy Intermediate Dizziness Verified 03/06/24 10:01 & Fainting codeine AdvReac Mild Rash Verified 03/06/24 10:01 alendronate sodium AdvReac Unknown Gastrointestinal Verified 03/06/24 10:01 [From Fosamax] Upset Ortho Exam Narrative Exam Narrative: The patient is examined supine in the hospital bed. The skin about the right hip is intact, no surgical scars, no ecchymosis. CMS to the foot is normal. Const Vital Signs, click to edit/add: Vital Signs - 24 hr 03/13/24 21:54 03/13/24 22:09 03/13/24 22:41 Temperature 99.0 F Pulse Rate [Pulse Oximeter] 79 97 Respiratory Rate 18 18 Blood Pressure [Left Arm] Blood Pressure [Right Arm] Blood Pressure [Right Upper Arm] 186/112 H 177/115 H Pulse Oximetry 99 99 98 Oxygen Delivery Method Nasal Cannula Nasal Cannula Nasal Cannula Oxygen Flow Rate 2 2 2 03/13/24 23:40 03/14/24 05:08 03/14/24 05:09 Temperature 98.4 F Pulse Rate [Pulse Oximeter] 101 H 83 Respiratory Rate 24 24 Blood Pressure [Left Arm] Blood Pressure [Right Arm] 177/122 H Blood Pressure [Right Upper Arm] Pulse Oximetry 94 94 94 Oxygen Delivery Method Nasal Cannula Nasal Cannula Nasal Cannula Oxygen Flow Rate 2 2 2 03/14/24 05:35 03/14/24 07:00 03/14/24 07:00 Temperature Pulse Rate [Pulse Oximeter] 104 H Respiratory Rate 24 14 Blood Pressure [Left Arm] Blood Pressure [Right Arm] Blood Pressure [Right Upper Arm] Pulse Oximetry 94 90 Oxygen Delivery Method Nasal Cannula Oxygen Flow Rate 2 03/14/24 07:00 03/14/24 08:18 03/14/24 11:01 Temperature 98.5 F 98.4 F Pulse Rate [Pulse Oximeter] 104 H 94 Respiratory Rate 14 14 12 Blood Pressure [Left Arm] 141/91 H Blood Pressure [Right Arm] 106/78 Blood Pressure [Right Upper Arm] Pulse Oximetry 90 90 100 Oxygen Delivery Method Nasal Cannula Nasal Cannula Nasal Cannula Oxygen Flow Rate 2 2 2 03/14/24 11:29 Temperature Pulse Rate [Pulse Oximeter] Respiratory Rate 16 Blood Pressure [Left Arm] Blood Pressure [Right Arm] Blood Pressure [Right Upper Arm] Pulse Oximetry 93 Oxygen Delivery Method Nasal Cannula Oxygen Flow Rate 2 Results Labs Labs: Laboratory Results - last 48 hr 03/13/24 03/13/24 03/14/24 22:12 22:17 12:08 WBC 8.19 9.22 RBC 3.79 L 4.39 Hgb 11.2 L 13.1 Hct 36.3 43.2 MCV 96 98 MCH 30 30 MCHC 31 L [address] 16.3 H 16.7 H Plt Count 215 220 Neut % (Auto) 70.9 82.9 H Lymph % (Auto) 17.0 L 7.9 L [place] % (Auto) 8.9 8.4 Eos % (Auto) 2.6 0.4 Baso % (Auto) 0.4 0.2 Neut # (Auto) 5.81 7.60 H Lymph # (Auto) 1.40 0.70 L [place] # (Auto) 0.70 0.80 Eos # (Auto) 0.21 0.04 Baso # (Auto) 0.03 0.02 Abs Immat Gran (auto) 0.02 0.02 Imm/Tot Granulo (auto) 0.2 0.2 INR 0.89 L Sodium 136 139 Potassium 4.4 4.6 Chloride 99 99 Carbon Dioxide 32 35 H Anion Gap 5 L 5 L BUN 16 15 Creatinine 0.7 0.7 Estimated Creat Clear 31.03 33.29 Estimated GFR 88 88 Glucose 91 118 H Calcium 9.1 8.9 Ethyl Alcohol 0.03 Diagnostic results Additional Comments: An AP pelvis, AP and cross-table lateral view of the right hip show a displaced femoral neck fracture. There is no pre-existing hip joint arthritis, no obvious pathologic lesion. Assessment and Plan Assessment and plan (1) Fall: Status: Inactive Total time spent: Total time spent is greater than 50% in coordination of care (as documented) at patient's floor/unit and/or counseling patient: (2) Closed hip fracture: Status: Acute Total time spent: Total time spent is greater than 50% in coordination of care (as documented) at patient's floor/unit and/or counseling patient: Plan Assessment: Displaced right femoral neck fracture Plan: The patient has been medically cleared for surgery. Therefore, we will proceed with cemented bipolar hemiarthroplasty through an anterior approach. If for some reason spinal anesthesia is not successful, we will consider transfer to a tertiary facility for surgery or proceed with a general anesthetic, knowing that she would be difficult to extubate and may require transfer postop. This was explained to the patient's son in detail.
--- NOTE | 2024-03-14 14:47 | PC.NURSE ---
Change of RN after surgery: Patient pleasant and cooperative. Patient vitally stable, lungs with Rhonchi, BS WNL, IV running NS at 75ml. Patient on 2 L NC with sats in low 90s. Patient rates pain at most 6/10, 0.5mg of dilauded given once. Patient's lam intact and draining. Ice pack to right hip. Patient will have a new RN after surgery.
--- NOTE | 2024-03-14 14:56 | P.ORPRC_ITS ---
Procedure Note Date of procedure: 03/14/24 Procedure: PREOPERATIVE DIAGNOSIS: Right hip displaced femoral neck fracture POSTOPERATIVE DIAGNOSIS: Right hip displaced femoral neck fracture NAME OF OPERATION: Right hip cemented bipolar hemiarthroplasty SURGEON: Ganga Giraldo MD MICROELECTRONICS TECHNICIAN: Moni Garibay PA-C IMPLANTS: 1. Louisa cemented # 4 standard collared cemented stem 2. 28 + 1.5 cobalt chrome femoral head 3. 44 mm bipolar component ANESTHESIA: Spinal ESTIMATED BLOOD LOSS: 100 cc COMPLICATIONS: None SPECIMENS: None DRAINS: None PREOPERATIVE ANTIBIOTICS: Ancef 1 g, antibiotic impregnated cement INDICATIONS: The patient is a 79-year-old who fell today sustaining a right hip femoral neck fracture. The patient was admitted for workup and management. They have been medically cleared for surgery. Operative intervention was recommended. The risks, benefits and expected outcomes were discussed in detail. These included but were not limited to: Infection, bleeding, injury to blood vessel or nerve, venous thromboembolism. All questions were answered to their satisfaction. Use of an assistant printer floor covering was necessary throughout the case for patient positioning and safety, soft tissue retraction and closure. PROCEDURE: General anesthesia was administered. The patient was placed supine on the Mullan table. The assistant printer floor covering made sure the patient was properly positioned. The hip was prepped and draped in the usual sterile fashion. The image i ntensifier was brought in for a perfect AP pelvis and a perfect double tear drop AP view of each hip which were used for intraoperative templating with our fluoroscopic guide. An oblique incision was made 3 cm distal and 3 cm lateral to the anterior superior iliac spine. The assistant printer floor covering retracted the soft tissues to protect them. Subcutaneous dissection was taken with electrocautery to the superficial fascia. The fascia was divided in line with the incision. Blunt dissection was carried medially to the tensor fascia reg and sartorius interval. Deep dissection was carried with electrocautery. The circumflex vessels were cauterized and divided. The capsule was exposed and then divided in a T- fashion, tagged with #1 Ethibond sutures. Retractors were placed in the joint, held by the assistant printer floor covering. The corkscrew was placed in the femoral head. The neck cut was made in the subcapital region. We made a second neck cut more distal. The napkin ring of bone was removed. The femoral head was removed intact. The limb was placed in 140 degrees of external rotation, maximum extension and adduction. A significant amount of time was spent releasing the capsule to allow us to deliver the femur into the wound and complete the femoral side safely. Retractors were held by the assistant printer floor covering throughout the femoral preparation. The final cigar and box examiner and canal finder were used. Broaches were used to a stable size. The calcar reamer was used. Trial components were placed. The hip was reduced and was found to be stable with appropriate soft tissue tension. Length and offset had been nicely restored using the image intensifier and our fluoroscopic guide. Trial components were removed. The cement restrictor was placed. The canal was irrigated with pulse lavage then thoroughly dried. Cement was placed with the cement gun and hand pressurized. The # 4 Louisa cemented stem was placed in the canal. Excessive cement was removed, the cement was allowed to harden. The 28 mm + 1.5 cobalt chrome femoral head and the 44 mm bipolar component were placed. The hip was reduced and again was found to be stable with appropriate soft tissue tension. Leg lengths appear equal. The assistant printer floor covering irrigated the wound with 3 liters of normal saline via pulse lavage. The assistant printer floor covering repaired the anterior capsule with a #1 Vicryl and our previously placed Ethibond sutures. The assistant printer floor covering closed the fascia over the tensor fascia reg with a #1 PDO Stratafix, subcutaneous tissues with 2-0 Vicryl, skin with a running 3-0 Stratafix and glue. A dry dressing was applied by the assistant printer floor covering. Sponge and needle counts were correct x 2. The patient tolerated the procedure well; there were no apparent complications. They were awakened and extubated in the operating room, sent to the Post-Anesthesia Care Unit in satisfactory condition. PLAN: 1. The patient will be mobilized with physical therapy, weight-bearing as tolerates 2. Xarelto x 5 days then aspirin x 30 days will be used for DVT prophylaxis 3. The patient will be discharged to a longterm facility once medically appropriate
--- NOTE | 2024-03-14 15:27 | P.ANES_ITS ---
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
--- NOTE | 2024-03-14 15:35 | PM.IMPN1 ---
Progress Note: A&P Assessment and plan (1) Closed hip fracture: Problem details: - right femoral neck fracture from fall - Surgery today by Dr. Giraldo, monitor for respiratory distress perioperatively - PT and OT evaluations post op Status: Acute (2) Frailty syndrome in geriatric patient: Status: Chronic (3) ALLIE (obstructive sleep apnea): Status: Chronic (4) Pulmonary hypertension: Problem details: Severe. Predominantly Group 3. Status: Chronic (5) COPD (chronic obstructive pulmonary disease): Problem details: followed by [facility] pul[facility]ology, on chronic home oxygen (nocturnal oxygen changed to full-time) 01/27 - Chronic, severe, although she has a recent exacerbation, it was treated with prednisone and she has finished a course of that and is no longer in exacerbation at present. Status: Chronic (6) Osteopenia: Problem details: No DEXA scan in [facility] records. Status: Chronic (7) NYHA class 3 heart failure with preserved ejection fraction: Problem details: Dx early 2022. See scanned [facility] note. Has chronic leg edema. - Chronic diastolic, not currently in exacerbation Status: Chronic Subjective Time Seen by Provider: 09:52 Date Seen: 03/14/24 Interval history: Marty tells me that she had a COPD exacerbation last week for which she was seen in the ER and was started on a 5 day burst of prednisone. Other than exacerbations, she does not take any prednisone chronically. She finished her 5 day burst of prednisone about 2 days ago. She feels that her COPD exacerbation has resolved. Exam Narrative: Exam Narrative: General: No acute distress. Awake, alert, oriented x3. No pallor. No jaundice. Oropharynx: Clear. Mucous membranes moist. Cardiovascular: Regular rate and rhythm. Grade 3/6 systolic ejection murmur loudest of the right upper sternal border. Respiratory: Clear to auscultation bilaterally, diminished at both bases. No wheezes or crackles. Abdomen: Bowel sounds present. Soft, nondistended, nontender. Extremities: No pedal edema. Const: Vital Signs, click to edit/add: Vital Signs - 24 hr 03/13/24 21:54 03/13/24 22:09 03/13/24 22:41 Temperature 99.0 F Pulse Rate Pulse Rate [Pulse Oximeter] 79 97 Respiratory Rate 18 18 Blood Pressure Blood Pressure [Le ft Arm] Blood Pressure [Ri ght Arm] Blood Pressure [Ri ght Upper Arm] 186/112 H 177/115 H Pulse Oximetry 99 99 98 Oxygen Delivery Me thod Nasal Cannula Nasal Cannula Nasal Cannula Oxygen Flow Rate 2 2 2 03/13/24 23:40 03/14/24 05:08 03/14/24 05:09 Temperature 98.4 F Pulse Rate Pulse Rate [Pulse Oximeter] 101 H 83 Respiratory Rate 24 24 Blood Pressure Blood Pressure [Le ft Arm] Blood Pressure [Ri ght Arm] 177/122 H Blood Pressure [Ri ght Upper Arm] Pulse Oximetry 94 94 94 Oxygen Delivery Me thod Nasal Cannula Nasal Cannula Nasal Cannula Oxygen Flow Rate 2 2 2 03/14/24 05:35 03/14/24 07:00 03/14/24 07:00 Temperature Pulse Rate Pulse Rate [Pulse Oximeter] 104 H Respiratory Rate 24 14 Blood Pressure Blood Pressure [Le ft Arm] Blood Pressure [Ri ght Arm] Blood Pressure [Ri ght Upper Arm] Pulse Oximetry 94 90 Oxygen Delivery Me thod Nasal Cannula Oxygen Flow Rate 2 03/14/24 07:00 03/14/24 08:18 03/14/24 11:01 Temperature 98.5 F 98.4 F Pulse Rate Pulse Rate [Pulse Oximeter] 104 H 94 Respiratory Rate 14 14 12 Blood Pressure Blood Pressure [Le ft Arm] 141/91 H Blood Pressure [Ri ght Arm] 106/78 Blood Pressure [Ri ght Upper Arm] Pulse Oximetry 90 90 100 Oxygen Delivery Me thod Nasal Cannula Nasal Cannula Nasal Cannula Oxygen Flow Rate 2 2 2 03/14/24 11:29 03/14/24 15:17 03/14/24 15:23 Temperature 98.3 F Pulse Rate 75 80 Pulse Rate [Pulse Oximeter] Respiratory Rate 16 12 12 Blood Pressure 135/90 H 137/87 Blood Pressure [Le ft Arm] Blood Pressure [Ri ght Arm] Blood Pressure [Ri ght Upper Arm] Pulse Oximetry 93 100 100 Oxygen Delivery Me thod Nasal Cannula Non Rebreather Mas k Non Rebreather Mas k Oxygen Flow Rate 2 8 8 03/14/24 15:28 03/14/24 15:34 Temperature Pulse Rate 71 68 Pulse Rate [Pulse Oximeter] Respiratory Rate 12 12 Blood Pressure 139/92 H 145/95 H Blood Pressure [Le ft Arm] Blood Pressure [Ri ght Arm] Blood Pressure [Ri ght Upper Arm] Pulse Oximetry 97 98 Oxygen Delivery Me thod Non Rebreather Mas k Non Rebreather Mas k Oxygen Flow Rate 6 6 Labs Labs: Laboratory Results - last 24 hr 03/13/24 03/13/24 03/14/24 22:12 22:17 12:08 WBC 8.19 9.22 RBC 3.79 L 4.39 Hgb 11.2 L 13.1 Hct 36.3 43.2 MCV 96 98 MCH 30 30 MCHC 31 L [address] 16.3 H 16.7 H Plt Count 215 220 Neut % (Auto) 70.9 82.9 H Lymph % (Auto) 17.0 L 7.9 L [place] % (Auto) 8.9 8.4 Eos % (Auto) 2.6 0.4 Baso % (Auto) 0.4 0.2 Neut # (Auto) 5.81 7.60 H Lymph # (Auto) 1.40 0.70 L [place] # (Auto) 0.70 0.80 Eos # (Auto) 0.21 0.04 Baso # (Auto) 0.03 0.02 Abs Immat Gran (auto) 0.02 0.02 Imm/Tot Granulo (auto) 0.2 0.2 INR 0.89 L Sodium 136 139 Potassium 4.4 4.6 Chloride 99 99 Carbon Dioxide 32 35 H Anion Gap 5 L 5 L BUN 16 15 Creatinine 0.7 0.7 Estimated Creat Clear 31.03 33.29 Estimated GFR 88 88 Glucose 91 118 H Calcium 9.1 8.9 Ethyl Alcohol 0.03
--- NOTE | 2024-03-14 16:03 | RESP.RT ---
Patient return from surgery on NC 4-6 Lpm with SaO2 85-90) during transport, placed on OxyMask 4 Lpm, SaO2 92%, Goal to maintain SaO2 88-94%, changing to NC 2 Lpm as Patient tolerates.
[2024-03-14] MEDS: LACTATED RINGERS 1000 ML 1,000 ML 75 ML IV (16:14)
[2024-03-14] MEDS: ROSUVASTATIN CALCIUM 10 MG TABLET PO (21:41)
[2024-03-14] MEDS: SENNOSIDES 1 TAB TABLET 2 TAB PO (21:41)
[2024-03-14] MEDS: ALBUTEROL INHALER 2 PUFF IH (22:45)
[2024-03-15] VITALS (10 sets, daily range): BP systolic 105–141; BP diastolic 78–94; PULSE 80–104; RESP 16–18; TEMP 36.8–37.6; O2SAT 92–99
[2024-03-15] MEDS: CEFAZOLIN 1 GM in 0.9 % SODIUM CHLORIDE Mini-bag 100 ML IVPB ×2 (00:21→08:07)
[2024-03-15] MEDS: ACETAMINOPHEN 500 MG TABLET 1000 MG PO ×4 (00:21→17:37)
--- NOTE | 2024-03-15 05:01 | PC.NURSE ---
Shift note: Patient has been in bed since admission from the surgery, refused ambulation. Pt said she is tired and want to rest. @2L of oxygen delivered through OxyMask. Tends to desaturate without oxygen. Hypoactive bowel sound. Lungs sound clear. Dressing appeared clean and clear. Icepack applied. Sips of water given. Denied pain since admission. Vitally stable. Pt had adequate sleep. She has not pass gas at this time. Expanse down time from 0100 to 0330.
[2024-03-15] MEDS: ALBUTEROL INHALER 2 PUFF IH (05:46)
[2024-03-15 06:19] LABS: Basophils Absolute Auto 0.01 K/uL (0.00-0.30); Basophils Percent Auto 0.1 % (0.0-3.0); Eosinophils Absolute Auto 0.02 K/uL (0.00-0.50); Eosinophils Percent Auto 0.2 % (0.0-7.0); Hematocrit 40.3 % (33.0-51.0); Hemoglobin* 11.9 gm/dL (12.0-16.0); Immature Granulocytes Abs Auto 0.02 K/uL (0.00-0.30); Immature Granulocytes Pct Auto 0.2 %; Lymphocytes Percent Auto 9.6 % (20-44); Mean Corpuscular HGB Conc 30 gm/dL (32-36); Mean Corpuscular Hemoglobin 30 pg (26-34); Mean Corpuscular Volume 100 fL (80-100); Monocytes Percent Auto 10.7 % (0.0-11.0); Neutrophils Percent Auto 79.2 % (42.0-72.0); Platelet Count* 190 K/uL (140-440); RDW Coefficient of Variation % 16.5 % (11.5-15.5); Red Blood Count 4.03 m/uL (4.00-5.20); Slide Review Reflex No; White Blood Count* 10.76 K/uL (4.50-11.00)
[2024-03-15 06:30] LABS: Potassium* 5.3 mmol/L (3.6-5.1); Sodium* 135 mmol/L (135-149)
[2024-03-15 06:33] LABS: Blood Urea Nitrogen* 18 mg/dL (7-30); Creatinine* 0.7 mg/dL (0.5-1.5); Est. Creatinine Clearance* 33.29; Estimated Glomerular Filt Rate 88 ml/min
[2024-03-15] MEDS: OMEPRAZOLE 20 MG CAPSULE DR 40 MG PO (06:42)
--- NOTE | 2024-03-15 08:01 | PM.ORPN ---
Subjective Subjective Time Seen by Provider: 07:45 Date Seen: 03/15/24 Principal diagnosis: Day 1 s/p right cemented bipolar hemiarthroplasty Interval history: Marty is doing well this morning and resting comfortably in bed. From a pulmonary status, Marty has returned to her baseline. Admits to slight increase in coughing postoperatively. Denies: chest pain, fever, chills, nausea, vomiting. Patient c/o mild-moderate right hip pain with transfers and ambulation. Denies right hip pain at rest. Pain is well managed with icing and Tylenol PRN. Patient resides at [facility] and has a SOCIAL MEDIA CAMPAIGN MANAGER come daily 10am-5pm. Patient is interested in being discharged to her home instead of a SNF. Ortho Exam Narrative Exam Narrative: Incision/Dressing: Dressing appears clean and dry. No drainage present. Mepilex intact. Right hip appears moderately swollen but supple with no obvious erythema, fluctuance or excessive warmth. No erythematous streaking. Warmth around the wound is appropriate. Ice is being utilized as needed. CMS: Intact distally with 2+ Dorsalis pedis and Posterior Tibial pulses. 5/5 motor strength dorsal and plantar flexion. Confirmed sensation distally. Calf: Bilateral calves are supple, with no swelling, pain, tenderness, erythema, discoloration or coolness to the touch. Constitutional: Patient is alert and oriented x3. Patient is in no acute distress and converses without labored breathing. Patient is able to make decisions and demonstrates good insight. Patient is pleasant and cooperative. Affect is full range and appropriate for the circumstances. Const Vital Signs, click to edit/add: Vital Signs - 24 hr 03/14/24 08:18 03/14/24 11:01 03/14/24 11:29 Temperature 98.5 F 98.4 F Pulse Rate Pulse Rate [Pulse Oximeter] 104 H 94 Respiratory Rate 14 12 16 Blood Pressure Blood Pressure [Left Arm] 141/91 H Blood Pressure [Right Arm] 106/78 Pulse Oximetry 90 100 93 Oxygen Delivery Method Nasal Cannula Nasal Cannula Nasal Cannula Oxygen Flow Rate 2 2 2 03/14/24 15:17 03/14/24 15:23 03/14/24 15:28 Temperature 98.3 F Pulse Rate 75 80 71 Pulse Rate [Pulse Oximeter] Respiratory Rate 12 12 12 Blood Pressure 135/90 H 137/87 139/92 H Blood Pressure [Left Arm] Blood Pressure [Right Arm] Pulse Oximetry 100 100 97 Oxygen Delivery Method Non Rebreather Mask Non Rebreather Mask Non Rebreather Mask Oxygen Flow Rate 8 8 6 03/14/24 15:34 03/14/24 15:38 03/14/24 15:43 Temperature Pulse Rate 68 72 69 Pulse Rate [Pulse Oximeter] Respiratory Rate 12 14 12 Blood Pressure 145/95 H 145/89 H 145/93 H Blood Pressure [Left Arm] Blood Pressure [Right Arm] Pulse Oximetry 98 98 99 Oxygen Delivery Method Non Rebreather Mask Non Rebreather Mask Non Rebreather Mask Oxygen Flow Rate 6 6 4 03/14/24 15:53 03/14/24 16:00 03/14/24 16:00 Temperature 97.4 F L Pulse Rate 73 Pulse Rate [Pulse Oximeter] Respiratory Rate 16 Blood Pressure 144/93 H Blood Pressure [Left Arm] Blood Pressure [Right Arm] Pulse Oximetry 95 95 95 Oxygen Delivery Method OxyMask OxyMask Oxygen Flow Rate 4 4 03/14/24 16:00 03/14/24 16:15 03/14/24 16:30 Temperature 98.6 F 98.6 F Pulse Rate 72 79 72 Pulse Rate [Pulse Oximeter] Respiratory Rate 16 16 16 Blood Pressure 147/103 H 145/99 H 140/94 H Blood Pressure [Left Arm] Blood Pressure [Right Arm] Pulse Oximetry 94 95 95 Oxygen Delivery Method OxyMask OxyMask OxyMask Oxygen Flow Rate 4 4 4 03/14/24 16:45 03/14/24 17:15 03/14/24 17:30 Temperature 98.4 F 98.2 F Pulse Rate 73 85 73 Pulse Rate [Pulse Oximeter] Respiratory Rate 16 16 16 Blood Pressure 142/93 H 147/103 H 129/91 H Blood Pressure [Left Arm] Blood Pressure [Right Arm] Pulse Oximetry 95 92 94 Oxygen Delivery Method OxyMask OxyMask OxyMask Oxygen Flow Rate 3 2 2 03/14/24 17:38 03/14/24 18:00 03/14/24 19:00 Temperature 98.5 F 98.4 F Pulse Rate 70 81 89 Pulse Rate [Pulse Oximeter] Respiratory Rate 16 16 Blood Pressure 122/93 H 133/95 H Blood Pressure [Left Arm] Blood Pressure [Right Arm] Pulse Oximetry 95 96 Oxygen Delivery Method OxyMask OxyMask Oxygen Flow Rate 2 2 03/14/24 19:00 03/14/24 20:00 03/14/24 21:00 Temperature 99.5 F 99.5 F 99.4 F Pulse Rate 92 96 98 Pulse Rate [Pulse Oximeter] Respiratory Rate 16 16 16 Blood Pressure 133/95 H 128/93 H 127/89 Blood Pressure [Left Arm] Blood Pressure [Right Arm] Pulse Oximetry 96 96 97 Oxygen Delivery Method OxyMask OxyMask OxyMask Oxygen Flow Rate 2 2 2 03/14/24 22:00 03/14/24 22:47 03/14/24 22:47 Temperature 99.4 F Pulse Rate 92 Pulse Rate [Pulse Oximeter] Respiratory Rate 16 16 Blood Pressure 125/102 H Blood Pressure [Left Arm] Blood Pressure [Right Arm] Pulse Oximetry 96 94 Oxygen Delivery Method OxyMask Oxygen Flow Rate 2 03/14/24 22:47 03/14/24 22:47 03/14/24 23:00 Temperature 98.9 F Pulse Rate 99 Pulse Rate [Pulse Oximeter] 93 Respiratory Rate 16 16 Blood Pressure Blood Pressure [Left Arm] 149/110 H Blood Pressure [Right Arm] Pulse Oximetry 94 94 Oxygen Delivery Method OxyMask OxyMask Oxygen Flow Rate 2 2 03/15/24 03:00 Temperature 98.2 F Pulse Rate Pulse Rate [Pulse Oximeter] 92 Respiratory Rate 16 Blood Pressure Blood Pressure [Left Arm] 123/87 Blood Pressure [Right Arm] Pulse Oximetry 99 Oxygen Delivery Method OxyMask Oxygen Flow Rate 2 Assessment and Plan Assessment and plan (1) Closed hip fracture: Problem details: Day 1 s/p right cemented bipolar hemiarthroplasty (DOS: 03/14/24; Dr. Giraldo) Status: Acute Assessment and Plan: - During our visit, Marty repeatedly takes off or adjusts her O2 mask and by doing so her O2 sats decrease to mid-80's. With prompts, she puts the mask back in place and her sats increase to low-90s. This appears to be her baseline. Marty converses without labored breathing nor coughing. Denies shortness of breath during our conversation. - Complete 23 hour perioperative antibiotics. - PT/OT consults for education and assistance. - Weight bear as tolerated with a walker for assistance. - Prescribed analgesics as needed. Patient is content with current narcotic medications. Minimize narcotic pain medication use; wean off and discontinue as soon as possible. I encouraged Marty to minimize narcotics as much as possible and take Tylenol primarily because of her pulmonary history and the risk of respiratory depression. Patient has been doing well this morning with Tylenol and icing. - DVT prophylaxis: Xarelto x 5 days followed by aspirin 81 mg BID x 30 days. Also frequent ambulation and ankle pumps when sedentary. - Social consult for discharge planning. Patient will either be discharged to SNF or possibly her home apartment ([facility]) with her SOCIAL MEDIA CAMPAIGN MANAGER dependent upon if the patient remains medically stable, pain is controlled and is safe with ambulation. - Return to clinic in 1 week with a PA-C for a wound check. Mepilex dressing will be removed at this appointment. Remove sooner if dressing becomes saturated. - Return to clinic in [address] Giraldo. - Phone Orthopedics with any questions or concerns. [phone]
[2024-03-15] MEDS: FLUTICASONE PROPIONATE NASAL 1 SPRAY NOSTRIL-B (08:12)
[2024-03-15] MEDS: TORSEMIDE 20 MG TABLET PO (08:13)
[2024-03-15] MEDS: RIVAROXABAN 10 MG TABLET PO (08:13)
[2024-03-15] MEDS: SENNOSIDES 1 TAB TABLET 2 TAB PO ×2 (08:14→20:43)
[2024-03-15] MEDS: SODIUM CHLORIDE 0.9 % (FLUSH) 10 ML SYRINGE 5 ML IVF ×2 (08:22→20:43)
[2024-03-15 09:29] LABS: Potassium* 4.9 mmol/L (3.6-5.1)
--- NOTE | 2024-03-15 13:42 | PM.IMPN1 ---
Progress Note: A&P Assessment and plan (1) Closed hip fracture: Problem details: - s/p right cemented bipolar hemiarthroplasty (DOS: 03/14/24; Dr. Giraldo) - routine post op cares - patient desires homegoing upon discharge, awaiting PT/OT assessment - VTE prophylaxis with low dose rivaroxaban Status: Acute (2) Frailty syndrome in geriatric patient: Status: Chronic (3) ALLIE (obstructive sleep apnea): Status: Chronic (4) Pulmonary hypertension: Problem details: Severe. Predominantly Group 3. Recently prescribed continuous oxygen at 2 liters/minute Status: Chronic (5) COPD (chronic obstructive pulmonary disease): Problem details: followed by [place] pulmonology, on chronic home oxygen (nocturnal oxygen changed to full-time) 01/27 - Chronic, severe, although she has a recent exacerbation, it was treated with prednisone and she has finished a course of that and is no longer in exacerbation at present. Status: Chronic (6) Osteopenia: Problem details: No DEXA scan in [place] records. Status: Chronic (7) NYHA class 3 heart failure with preserved ejection fraction: Problem details: Dx early 2022. See scanned [place] [facility] note. Has chronic leg edema. - Chronic diastolic, not currently in exacerbation Status: Chronic Subjective Time Seen by Provider: 07:42 Date Seen: 03/15/24 Interval history: Marty states she feels well. She denies any new or different SOB. She is back to baseline oxygen needs of 2LPM. Exam Narrative: Exam Narrative: General: No acute distress. Awake, alert, oriented x3. No pallor. No jaundice. Oropharynx: Clear. Mucous membranes moist. Cardiovascular: Regular rate and rhythm. Grade 3/6 systolic ejection murmur loudest of the right upper sternal border. Respiratory: Clear to auscultation bilaterally, diminished at both bases. No wheezes or crackles. Abdomen: Bowel sounds present. Soft, nondistended, nontender. Extremities: No pedal edema. Const: Vital Signs, click to edit/add: Vital Signs - 24 hr 03/14/24 15:17 03/14/24 15:23 03/14/24 15:28 Temperature 98.3 F Pulse Rate 75 80 71 Pulse Rate [Pulse Oximeter] Respiratory Rate 12 12 12 Blood Pressure 135/90 H 137/87 139/92 H Blood Pressure [Le ft Arm] Pulse Oximetry 100 100 97 Oxygen Delivery Me thod Non Rebreather Mas k Non Rebreather Mas k Non Rebreather Mas k Oxygen Flow Rate 8 8 6 03/14/24 15:34 03/14/24 15:38 03/14/24 15:43 Temperature Pulse Rate 68 72 69 Pulse Rate [Pulse Oximeter] Respiratory Rate 12 14 12 Blood Pressure 145/95 H 145/89 H 145/93 H Blood Pressure [Le ft Arm] Pulse Oximetry 98 98 99 Oxygen Delivery Me thod Non Rebreather Mas k Non Rebreather Mas k Non Rebreather Mas k Oxygen Flow Rate 6 6 4 03/14/24 15:53 03/14/24 16:00 03/14/24 16:00 Temperature 97.4 F L Pulse Rate 73 Pulse Rate [Pulse Oximeter] Respiratory Rate 16 Blood Pressure 144/93 H Blood Pressure [Le ft Arm] Pulse Oximetry 95 95 95 Oxygen Delivery Me thod OxyMask OxyMask Oxygen Flow Rate 4 4 03/14/24 16:00 03/14/24 16:15 03/14/24 16:30 Temperature 98.6 F 98.6 F Pulse Rate 72 79 72 Pulse Rate [Pulse Oximeter] Respiratory Rate 16 16 16 Blood Pressure 147/103 H 145/99 H 140/94 H Blood Pressure [Le ft Arm] Pulse Oximetry 94 95 95 Oxygen Delivery Me thod OxyMask OxyMask OxyMask Oxygen Flow Rate 4 4 4 03/14/24 16:45 03/14/24 17:15 03/14/24 17:30 Temperature 98.4 F 98.2 F Pulse Rate 73 85 73 Pulse Rate [Pulse Oximeter] Respiratory Rate 16 16 16 Blood Pressure 142/93 H 147/103 H 129/91 H Blood Pressure [Le ft Arm] Pulse Oximetry 95 92 94 Oxygen Delivery Me thod OxyMask OxyMask OxyMask Oxygen Flow Rate 3 2 2 03/14/24 17:38 03/14/24 18:00 03/14/24 19:00 Temperature 98.5 F 98.4 F Pulse Rate 70 81 89 Pulse Rate [Pulse Oximeter] Respiratory Rate 16 16 Blood Pressure 122/93 H 133/95 H Blood Pressure [Le ft Arm] Pulse Oximetry 95 96 Oxygen Delivery Me thod OxyMask OxyMask Oxygen Flow Rate 2 2 03/14/24 19:00 03/14/24 20:00 03/14/24 21:00 Temperature 99.5 F 99.5 F 99.4 F Pulse Rate 92 96 98 Pulse Rate [Pulse Oximeter] Respiratory Rate 16 16 16 Blood Pressure 133/95 H 128/93 H 127/89 Blood Pressure [Le ft Arm] Pulse Oximetry 96 96 97 Oxygen Delivery Me thod OxyMask OxyMask OxyMask Oxygen Flow Rate 2 2 2 03/14/24 22:00 03/14/24 22:47 03/14/24 22:47 Temperature 99.4 F Pulse Rate 92 Pulse Rate [Pulse Oximeter] Respiratory Rate 16 16 Blood Pressure 125/102 H Blood Pressure [Le ft Arm] Pulse Oximetry 96 94 Oxygen Delivery Me thod OxyMask Oxygen Flow Rate 2 03/14/24 22:47 03/14/24 22:47 03/14/24 23:00 Temperature 98.9 F Pulse Rate 99 Pulse Rate [Pulse Oximeter] 93 Respiratory Rate 16 16 Blood Pressure Blood Pressure [Le ft Arm] 149/110 H Pulse Oximetry 94 94 Oxygen Delivery Me thod OxyMask OxyMask Oxygen Flow Rate 2 2 03/15/24 03:00 03/15/24 07:55 03/15/24 07:55 Temperature 98.2 F Pulse Rate Pulse Rate [Pulse Oximeter] 92 96 Respiratory Rate 16 Blood Pressure Blood Pressure [Le ft Arm] 123/87 Pulse Oximetry 99 92 Oxygen Delivery Me thod OxyMask Oxygen Flow Rate 2 03/15/24 07:55 03/15/24 07:55 Temperature 99.6 F Pulse Rate Pulse Rate [Pulse Oximeter] 92 Respiratory Rate 18 18 Blood Pressure Blood Pressure [Le ft Arm] 125/91 H Pulse Oximetry 92 92 Oxygen Delivery Me thod Nasal Cannula Nasal Cannula Oxygen Flow Rate 2 2 Labs Labs: Laboratory Results - last 24 hr 03/15/24 03/15/24 06:07 08:38 WBC 10.76 RBC 4.03 Hgb 11.9 L Hct 40.3 MCV 100 MCH 30 MCHC [address] Co[address] of [address] 16.5 H Plt Count 190 Neut % (Auto) 79.2 H Lymph % (Auto) 9.6 L Elliott % (Auto) 10.7 Eos % (Auto) 0.2 Baso % (Auto) 0.1 Neut # (Auto) 8.50 H Lymph # (Auto) 1.00 Elliott # (Auto) 1.20 H Eos # (Auto) 0.02 Baso # (Auto) 0.01 Abs Immat Gran (auto) 0.02 Imm/Tot Granulo (auto) 0.2 Sodium 135 Potassium 5.3 H 4.9 BUN 18 Creatinine 0.7 Estimated Creat Clear 33.29 Estimated GFR 88
[2024-03-15] MEDS: Fluticasone-Umeclidin-Vilanter [Trelegy Ellipta] 100-62.5-25 mcg IH (16:12)
[2024-03-15] MEDS: OXYCODONE 5 MG TABLET PO (16:12)
[2024-03-15] MEDS: NICOTINE 2 MG LOZENGE BUCCAL (17:38)
--- NOTE | 2024-03-15 19:55 | PC.NURSE ---
Pt up with assist of 1, walker, and gait belt. See MAR for pain medication coverage. 2L O2 chronically holds sats about 90%. Pt request to return home at [place], sons believe TCU for rehab before returning home. Nicotine patch, gum, and lozenge offered. refused patch due to irritation from adhesive.
--- NOTE | 2024-03-15 20:06 | PC.NURSE ---
Procedure note: Urinary catheter removed at 1930 per MD order. Catheter tip intact, no discharges noted. Pt cooperated and tolerated procedure well.
[2024-03-15] MEDS: ROSUVASTATIN CALCIUM 10 MG TABLET PO (20:43)
[2024-03-16] VITALS (21 sets, daily range): BP systolic 86–130; BP diastolic 60–91; PULSE 59–158; RESP 16–22; TEMP 36.5–37.2; O2SAT 90–97
[2024-03-16] MEDS: ACETAMINOPHEN 500 MG TABLET 1000 MG PO ×4 (00:27→18:12)
[2024-03-16] MEDS: ALBUTEROL INHALER 2 PUFF IH ×3 (02:21→21:57)
--- NOTE | 2024-03-16 04:56 | PC.NURSE ---
Shift note: Pt is doing well ambulating with A1, walker and GB. Dressing appeared clean and dry. Pt has been on 2L of oxygen initially via NC but later changed to OxyMask, the O2 tend to desaturate with the NC because pt is mouth breather when sleeping. Pt has voided several time since the [place] was removed. Vitally stable. Ice pack applied to the dressing.
[2024-03-16] MEDS: OMEPRAZOLE 20 MG CAPSULE DR 40 MG PO (06:00)
[2024-03-16 06:31] LABS: Basophils Percent Auto 0.2 % (0.0-3.0); Eosinophils Percent Auto 1.2 % (0.0-7.0); Hematocrit 35.2 % (33.0-51.0); Hemoglobin* 10.9 gm/dL (12.0-16.0); Immature Granulocytes Pct Auto 0.3 %; Mean Corpuscular HGB Conc 31 gm/dL (32-36); Mean Corpuscular Hemoglobin 30 pg (26-34); Mean Corpuscular Volume 96 fL (80-100); Monocytes Percent Auto 12.1 % (0.0-11.0); Neutrophils Percent Auto 74.2 % (42.0-72.0); Platelet Count* 189 K/uL (140-440); Red Blood Count 3.66 m/uL (4.00-5.20); White Blood Count* 11.93 K/uL (4.50-11.00)
[2024-03-16 06:34] LABS: Slide Review Reflex No
--- NOTE | 2024-03-16 06:41 | W.PM.CROSSCO ---
Subjective Subjective Principal diagnosis: Day 1 s/p right cemented bipolar hemiarthroplasty Interval history: x cover note I was called by nursing stating patient yessenia into A fib with rvr 140-160. Patient asymptomatic. She remains at her baseline. Will start basic work up, start by checking Mag, K, TSH, Echocardiogram. Will start with rate control strategy with Diltiazem drip titrate 5-15mg/hr goal hr less than 100 and sys bp greater than 90. Brent Bar DO, Pharm. D.
[2024-03-16 06:49] LABS: Sodium* 132 mmol/L (135-149)
[2024-03-16 06:52] LABS: Blood Urea Nitrogen* 19 mg/dL (7-30); Creatinine* 0.7 mg/dL (0.5-1.5); Est. Creatinine Clearance* 33.01; Estimated Glomerular Filt Rate 88 ml/min
[2024-03-16] MEDS: 0.9 % SODIUM CHLORIDE 500 ML 500 ML IV ×2 (07:00→09:03)
[2024-03-16] MEDS: dilTIAZem HCL 125 MG in 0.9 % SODIUM CHLORIDE 100 ml 100 ML IVPB ×2 (07:24→07:29)
[2024-03-16] MEDS: Fluticasone-Umeclidin-Vilanter [Trelegy Ellipta] 100-62.5-25 mcg IH (07:40)
[2024-03-16] MEDS: FLUTICASONE PROPIONATE NASAL 1 SPRAY NOSTRIL-B (07:43)
[2024-03-16] MEDS: SENNOSIDES 1 TAB TABLET 2 TAB PO ×2 (07:45→20:56)
[2024-03-16] MEDS: RIVAROXABAN 10 MG TABLET PO (07:46)
[2024-03-16] MEDS: TORSEMIDE 20 MG TABLET PO (07:46)
[2024-03-16] MEDS: DULOXETINE HCL 20 MG CAPSULE DR PO (07:46)
[2024-03-16] MEDS: OXYCODONE 5 MG TABLET PO (10:51)
--- NOTE | 2024-03-16 12:08 | PC.SOCIAL ---
Discharge planning: Spoke with son, Jose Antonio, by phone regarding d/c plan. Son is requesting short term rehab at discharge and would like to keep pt in or close to [place]. Called [facility] who only have a shared room available. Son states a shared room would not work for pt and requested social work contact [facility] regarding bed availability. Son is hoping pt will meet criteria for Medicare covered stay at discharge. calender worker helper explained Medicare criteria for residential coverage. At son's request, emailed list of assisted facilities to son. Called and secure emailed information to [facility]. Admissions at [place] is out for today and will return tomorrow. calender worker helper to follow up as needed.
[2024-03-16] MEDS: METOPROLOL TARTRATE 25 MG TABLET PO ×2 (12:40→20:56)
--- NOTE | 2024-03-16 15:43 | P.IMPN_ITS ---
Progress Note: A&P Assessment and plan (1) Closed hip fracture: Problem details: - s/p right cemented bipolar hemiarthroplasty (DOS: 03/14/24; Dr. Giraldo) - routine post op cares - continue PT/OT - VTE prophylaxis with rivaroxaban - recommend SNF upon discharge for rehab Status: Acute (2) Frailty syndrome in geriatric patient: Status: Chronic (3) ALLIE (obstructive sleep apnea): Status: Chronic (4) Pulmonary hypertension: Problem details: Severe. Predominantly Group 3. Recently prescribed continuous oxygen at 2 liters/minute Status: Chronic (5) COPD (chronic obstructive pulmonary disease): Problem details: followed by [facility], on chronic home oxygen (nocturnal oxygen changed to full-time) 01/27 - Chronic, severe, although she has a recent exacerbation, it was treated with prednisone and she has finished a course of that and is no longer in exacerbation at present. Status: Chronic (6) Osteopenia: Problem details: No DEXA scan in [facility] records. Status: Chronic (7) NYHA class 3 heart failure with preserved ejection fraction: Problem details: Dx early 2022. See scanned [facility] note. Has chronic leg edema. - Chronic diastolic, not currently in exacerbation Status: Chronic (8) Pericardial effusion: Problem details: 03/16/24 ECHO: Trivial pericardial effusion Status: Acute (9) Ascending aorta dilation: Problem details: [facility], may 2023 vargas, stable Requires regular imaging surveillance. Repair in 2019. 03/16/24 03/16/2024 echo: Ascending aorta is dilated maximal diameter of 4.1 cm. Status: Chronic (10) Postoperative atrial fibrillation: Problem details: 03/16/24 Postop atrial fibrillation, new, associated with rapid ventricular rate, converted on diltiazem drip, total duration was about 3 hours. Just before she converted she was having hypotension and felt ?fuzzy. I spoke with Dr. Prieto from [facility] over the phone who recommended starting therapeutic Xarelto dosing and digoxin. She converted before I started digoxin. I have increased her Xarelto to be therapeutic, started low-dose oral metoprolol, and will have her follow-up with her electrician radio, Mingo Bhatia, at [facility] in 1 month. Status: Acute Subjective Time Seen by Provider: 07:05 Date Seen: 03/16/24 Interval history: I arrived around 7:00 a.m. this morning and was called into the patient's room immediately. Overnight she had done well until just after 5:00 a.m. when she flipped into new atrial fibrillation with rapid ventricular rate. She has never had atrial fibrillation before. She has been on low-dose Xarelto postoperatively for VTE prophylaxis, but not therapeutic dosing. The overnight doctor service was called and had ordered an EKG, which confirmed atrial fibrillation with rapid ventricular rate, and a diltiazem some drip which was started at 5 mg/hour. The nurses had not yet started started the drip because her blood pressures were low when it came over from pharmacy. They came and got me as soon as I arrived. Marty was feeling well at the time and completely asymptomatic initially despite soft blood pressures. I ordered fluid bolus which improved her blood pressure and we started the diltiazem drip. Her blood pressures fluctuated, but she tolerated the drip overall, however with no improvement in heart rate. I gave a 2nd IV fluid bolus due to fluctuating blood pressures and because she said she was starting to feel fuzzy in the head. I called and spoke with Dr. Prieto from [facility]iology at [facility] to consider whether cardioversion would be an option, and he recommended starting a digoxin load and therapeutic doses of Xarelto. I ordered digoxin and just before we were going to give it, she converted into normal sinus rhythm, which I confirmed by EKG. Heart rate was now in the 70s and blood pressures normalized. Marty's son, Tru, came in mid morning and I spoke with him and Marty. We discussed that she would need to be on therapeutic doses of Xarelto for treatment of postoperative atrial fibrillation and follow-up with her electrician radio as an outpatient. Additionally I have recommended group home facility for rehab. I spent about 10 minutes discussing smoking cessation which included routine and trigger identification and modification as well as use of nicotine supplementation. Marty demonstrated understanding and is willing to try to quit. She and her son were also agreeable with group home facility at discharge for short-term rehab. Exam Narrative: Exam Narrative: General: No acute distress. Awake, alert, oriented x3. No pallor. No jaundice. Oropharynx: Clear. Mucous membranes moist. Cardiovascular: Tachycardic, irregularly irregular. Grade 3/6 systolic ej ection murmur loudest of the right upper sternal border. Respiratory: Clear to auscultation bilaterally, diminished at both bases. No wheezes or crackles. Abdomen: Bowel sounds present. Soft, nondistended, nontender. Extremities: No pedal edema. Const: Vital Signs, click to edit/add: Vital Signs - 24 hr 03/15/24 16:00 03/15/24 16:00 03/15/24 16:00 Temperature Pulse Rate Pulse Rate [Pulse Oximeter] Respiratory Rate 18 18 Blood Pressure [Le ft Arm] Blood Pressure [Ri ght Arm] Pulse Oximetry 96 96 Oxygen Delivery Me thod Nasal Cannula Oxygen Flow Rate 2 03/15/24 16:00 03/15/24 19:00 03/15/24 22:17 Temperature 98.7 F 99.2 F Pulse Rate Pulse Rate [Pulse Oximeter] 88 91 Respiratory Rate 18 18 Blood Pressure [Le ft Arm] 141/94 H 105/78 Blood Pressure [Ri ght Arm] Pulse Oximetry 96 96 95 Oxygen Delivery Me thod Nasal Cannula Nasal Cannula Oxygen Flow Rate 2 2 03/15/24 22:17 03/15/24 22:17 03/15/24 22:17 Temperature 99.2 F Pulse Rate Pulse Rate [Pulse Oximeter] 96 96 Respiratory Rate 18 18 18 Blood Pressure [Le ft Arm] 106/80 Blood Pressure [Ri ght Arm] Pulse Oximetry 95 95 Oxygen Delivery Me thod Nasal Cannula Nasal Cannula Oxygen Flow Rate 2 2 03/15/24 23:00 03/16/24 02:22 03/16/24 07:00 Temperature 98.9 F Pulse Rate 94 86 Pulse Rate [Pulse Oximeter] 76 Respiratory Rate 18 Blood Pressure [Le ft Arm] Blood Pressure [Ri ght Arm] 130/80 Pulse Oximetry 94 Oxygen Delivery Me thod Nasal Cannula Oxygen Flow Rate 2 03/16/24 07:00 03/16/24 07:00 03/16/24 07:00 Temperature Pulse Rate Pulse Rate [Pulse Oximeter] 142 H Respiratory Rate 22 22 Blood Pressure [Le ft Arm] Blood Pressure [Ri ght Arm] Pulse Oximetry 96 96 Oxygen Delivery Me thod OxyMask Oxygen Flow Rate 2.5 03/16/24 07:00 03/16/24 07:40 03/16/24 07:45 Temperature 97.8 F Pulse Rate Pulse Rate [Pulse Oximeter] 142 H 145 H 139 H Respiratory Rate 22 Blood Pressure [Le ft Arm] 110/81 98/65 120/91 H Blood Pressure [Ri ght Arm] Pulse Oximetry 96 Oxygen Delivery Me thod OxyMask Oxygen Flow Rate 2.5 03/16/24 07:50 03/16/24 08:00 03/16/24 08:15 Temperature Pulse Rate Pulse Rate [Pulse Oximeter] 149 H 91 137 H Respiratory Rate Blood Pressure [Le ft Arm] 121/86 116/83 106/75 Blood Pressure [Ri ght Arm] Pulse Oximetry Oxygen Delivery Me thod Oxygen Flow Rate 03/16/24 08:30 03/16/24 09:15 03/16/24 09:30 Temperature 98.5 F Pulse Rate Pulse Rate [Pulse Oximeter] 146 H 158 H 121 H Respiratory Rate 20 Blood Pressure [Le ft Arm] 86/60 L 107/72 109/80 Blood Pressure [Ri ght Arm] Pulse Oximetry 96 Oxygen Delivery Me thod Nasal Cannula Oxygen Flow Rate 03/16/24 10:00 03/16/24 10:30 03/16/24 10:44 Temperature Pulse Rate 78 Pulse Rate [Pulse Oximeter] 101 H 78 Respiratory Rate Blood Pressure [Le ft Arm] 119/74 108/70 Blood Pressure [Ri ght Arm] Pulse Oximetry Oxygen Delivery Me thod Oxygen Flow Rate 03/16/24 12:00 03/16/24 14:00 03/16/24 15:00 Temperature 97.9 F 97.9 F Pulse Rate 60 Pulse Rate [Pulse Oximeter] 73 66 Respiratory Rate 22 20 Blood Pressure [Le ft Arm] 125/76 101/70 Blood Pressure [Ri ght Arm] Pulse Oximetry 92 92 Oxygen Delivery Me thod Nasal Cannula Nasal Cannula Oxygen Flow Rate 2 2 03/16/24 15:00 03/16/24 15:00 03/16/24 15:00 Temperature Pulse Rate Pulse Rate [Pulse Oximeter] 59 L Respiratory Rate 20 20 Blood Pressure [Le ft Arm] Blood Pressure [Ri ght Arm] Pulse Oximetry 97 97 Oxygen Delivery Me thod Nasal Cannula Oxygen Flow Rate 1.5 Labs Labs: Laboratory Results - last 24 hr 03/16/24 06:05 WBC 11.93 H RBC 3.66 L Hgb 10.9 L Hct 35.2 MCV 96 MCH 30 M[address]C [address] 16.0 H Plt Count 189 Neut % (Auto) 74.2 H Lymph % (Auto) 12.0 L [place] % (Auto) 12.1 H Eos % (Auto) 1.2 Baso % (Auto) 0.2 Neut # (Auto) 8.90 H Lymph # (Auto) 1.40 [place] # (Auto) 1.40 H Eos # (Auto) 0.10 Baso # (Auto) 0.00 Abs Immat Gran (auto) 0.00 Imm/Tot Granulo (auto) 0.3 Sodium 132 L Potassium 4.0 BUN 19 Creatinine 0.7 Estimated Creat Clear 33.01 Estimated GFR 88 Magnesium 2.0 TSH 7.600 H 03/16/2024 5:21 a.m. EKG: Atrial fibrillation with rapid ventricular response with premature ventricular or aberrant like conducted complexes, incomplete right bundle-branch block, right ventricular hypertrophy with repolarization abnormality, nonspecific T-wave abnormality. 03/16/2024 9:22 a.m. sinus rhythm with sinus arrhythmia with premature ventricular complexes or fusion complexes, 76 beats per minute, possible left atrial enlargement, right bundle-branch block. 03/16/2024 echocardiogram: Normal left ventricular size, mildly increased wall thickness, normal global systolic function, calculated EF of 68%. Aortic valve is calcified, mild stenosis and trivial regurgitation. Mitral valve is sclerotic, mild mitral regurgitation. Moderately enlarged left and right atria. Ascending aorta is dilated maximal diameter of 4.1 cm. Trivial pericardial effusion.
--- NOTE | 2024-03-16 18:42 | PC.NURSE ---
End of shift [id number]: Upon arrival this morning, pt was in A. Fib RVR rate in the 160s-180s. Pt was started on Diltiazem gtt @ 0730 started @ 5mL/hr. Pt became hypotensive with start of gtt so x2 500 mL boluses were given with BP improvement. At 0940 she converted back to sinus arrythmia with PVC?s and RBBB confirmed by EKG. Pt was started on PO 25mg Metoprolol BID and Dilt gtt was discontinued @ 1245. Her Xarelto was increased to 15mg BID from previously ordered 10mg daily. TELE has been reading SR with RBBB since Dilt gtt was discontinued. Pt has been VSS throughout the day and O2 maintained > 88% on 1.5-2L NC (Pt on chronic 2L NC at home). Pt showed evidence of mild delirium by self-transferring without using call light and without using her 2ww; bed alarm was initiated. PIV in right FA is SL with old drainage, dressing intact & flushes well. Right anterior hip dressing is C/D/I with minimal swelling around the site- intermittent ice on/off throughout the day. PRN oxycodone given last @ 1050 for right hip pain rating 5/10. Pt is Ax1 with 2ww and gait belt for ambulation and transfers. Continent of B&B. Diminished LS in bilateral posterior bases. SNF discharge discussed with patient and her son for short-term rehab. SW has been consulted and involved in D/C planning. Pt was transitioned to Med/Surg status at 1830. ?
[2024-03-16] MEDS: SODIUM CHLORIDE 0.9 % (FLUSH) 10 ML SYRINGE 5 ML IVF (20:56)
[2024-03-16] MEDS: RIVAROXABAN 10 MG TABLET 15 MG PO (20:56)
[2024-03-16] MEDS: ROSUVASTATIN CALCIUM 10 MG TABLET PO (20:56)
[2024-03-17] VITALS (10 sets, daily range): BP systolic 105–138; BP diastolic 71–85; PULSE 64–98; RESP 14–20; TEMP 36.5–36.9; O2SAT 94–98
[2024-03-17] MEDS: ACETAMINOPHEN 500 MG TABLET 1000 MG PO ×4 (00:28→18:53)
[2024-03-17] MEDS: OMEPRAZOLE 20 MG CAPSULE DR 40 MG PO (06:13)
[2024-03-17 06:35] LABS: Basophils Absolute Auto 0.04 K/uL (0.00-0.30); Basophils Percent Auto 0.4 % (0.0-3.0); Eosinophils Absolute Auto 0.18 K/uL (0.00-0.50); Eosinophils Percent Auto 1.7 % (0.0-7.0); Hematocrit 31.1 % (33.0-51.0); Hemoglobin* 9.7 gm/dL (12.0-16.0); Immature Granulocytes Abs Auto 0.02 K/uL (0.00-0.30); Immature Granulocytes Pct Auto 0.2 %; Lymphocytes Percent Auto 8.7 % (20-44); Mean Corpuscular HGB Conc 31 gm/dL (32-36); Mean Corpuscular Hemoglobin 30 pg (26-34); Mean Corpuscular Volume 96 fL (80-100); Monocytes Percent Auto 12.7 % (0.0-11.0); Neutrophils Percent Auto 76.3 % (42.0-72.0); Platelet Count* 175 K/uL (140-440); RDW Coefficient of Variation % 15.9 % (11.5-15.5); Red Blood Count 3.23 m/uL (4.00-5.20)
[2024-03-17 06:49] LABS: Slide Review Reflex No
[2024-03-17 06:51] LABS: Potassium* 3.6 mmol/L (3.6-5.1); Sodium* 131 mmol/L (135-149)
[2024-03-17 06:54] LABS: Creatinine* 0.6 mg/dL (0.5-1.5); Est. Creatinine Clearance* 71.08; Estimated Glomerular Filt Rate 91 ml/min
[2024-03-17 06:55] LABS: Blood Urea Nitrogen* 18 mg/dL (7-30)
--- NOTE | 2024-03-17 07:28 | PC.NURSE ---
: Pleasant and cooperative. Calls appropriately. SBA with gb and walker, tolerates well. Scheduled Tylenol offering pain control. Dressing to R hip CDI, active ice on. ?
[2024-03-17] MEDS: METOPROLOL TARTRATE 25 MG TABLET PO ×2 (08:41→20:53)
[2024-03-17] MEDS: DULOXETINE HCL 20 MG CAPSULE DR PO (08:41)
[2024-03-17] MEDS: SENNOSIDES 1 TAB TABLET 2 TAB PO ×2 (08:42→20:50)
[2024-03-17] MEDS: OXYCODONE 5 MG TABLET PO (08:42)
[2024-03-17] MEDS: FLUTICASONE PROPIONATE NASAL 1 SPRAY NOSTRIL-B (08:43)
[2024-03-17] MEDS: RIVAROXABAN 10 MG TABLET 15 MG PO ×2 (08:43→20:52)
[2024-03-17] MEDS: Fluticasone-Umeclidin-Vilanter [Trelegy Ellipta] 100-62.5-25 mcg IH (08:46)
[2024-03-17] MEDS: TORSEMIDE 20 MG TABLET PO (08:47)
[2024-03-17] MEDS: SODIUM CHLORIDE 0.9 % (FLUSH) 10 ML SYRINGE 5 ML IVF ×2 (08:48→20:55)
[2024-03-17] MEDS: ALBUTEROL INHALER 2 PUFF IH ×2 (11:54→22:18)
--- NOTE | 2024-03-17 15:15 | P.IMPN_ITS ---
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 Ferritin goal is over 50. She has chronic GI blood loss To infuse iron dextran if ferritin under 50 - Hgb 9.7 today down from 10.9 yesterday. Patient denies melena, hematochezia, hematemesis. Right hip not bruised, does not appear to have hematoma. No other evidence of bleeding. Suspect this is from hemodilution as patient was given NS boluses yesterday for BP support during episode of afib with RVR. Recheck Hgb in am. Status: Chronic (2) Closed hip fracture: Problem details: - s/p right cemented bipolar hemiarthroplasty (DOS: 03/14/24; Dr. Giraldo) - routine post op cares - continue PT/OT - VTE prophylaxis with rivaroxaban - recommend SNF upon discharge for rehab. Social Work helping with referral to [facility] facilities. Status: Acute (3) Frailty syndrome in geriatric patient: Status: Chronic (4) ALLIE (obstructive sleep apnea): Status: Chronic (5) Pulmonary hypertension: Problem details: Severe. Predominantly Group 3. Recently prescribed continuous oxygen at 2 liters/minute Status: Chronic (6) COPD (chronic obstructive pulmonary disease): Problem details: followed by [facility], on chronic home oxygen (nocturnal oxygen changed to full-time) 01/27 - Chronic, severe, although she has a recent exacerbation, it was treated with prednisone and she has finished a course of that and is no longer in exacerbation at present. Status: Chronic (7) Osteopenia: Problem details: No DEXA scan in [facility] records. Status: Chronic (8) NYHA class 3 heart failure with preserved ejection fraction: Problem details: Dx early 2022. See scanned [facility] note. Has chronic leg edema. - Chronic diastolic, not currently in exacerbation Status: Chronic (9) Pericardial effusion: Problem details: 03/16/24 ECHO: Trivial pericardial effusion Status: Acute (10) Ascending aorta dilation: Problem details: [facility], may 2023 vargas, stable Requires regular imaging surveillance. Repair in 2019. 03/16/24 03/16/2024 echo: Ascending aorta is dilated maximal diameter of 4.1 cm. Status: Chronic (11) Postoperative atrial fibrillation: Problem details: - 03/16/24 Postop atrial fibrillation, new, associated with rapid ventricular rate, converted on diltiazem drip, total duration was about 3 hours. Just before she converted she was having hypotension and felt ?fuzzy. I spoke with Dr. Prieto from [facility] over the phone who recommended starting therapeutic Xarelto dosing and digoxin. She converted before I started digoxin. I have increased her Xarelto to be therapeutic, started low-dose oral metoprolol, and will have her follow-up with her highway construction inspector, Mingo Bhatia, at [facility] in 1 month. - 03/17 Remains in [facility] overnight. Continue Xarelto and metoprolol. Status: Acute Subjective Time Seen by Provider: 07:30 Date Seen: 03/17/24 Interval history: Marty feels well today. No further afib seen on telemetry. Her son, Ken, was here with her this morning. I updated him in the room. Exam Narrative: Exam Narrative: General: No acute distress. Awake, alert, oriented x3. No pallor. No jaundice. Oropharynx: Clear. Mucous membranes moist. Cardiovascular: Regular rate and rhythm. Grade 3/6 systolic ejection murmur loudest of the right upper sternal border, unchanged. Respiratory: Clear to auscultation bilaterally, diminished at both bases. No wheezes or crackles. Abdomen: Bowel sounds present. Soft, nondistended, nontender. Extremities: Right hip bandage is clean, dry, and intact. No overlying bruising. Area is soft with no fluctuance or firmness. No pedal edema. Const: Vital Signs, click to edit/add: Vital Signs - 24 hr 03/16/24 16:00 03/16/24 18:00 03/16/24 20:10 Temperature 98.1 F 98.5 F 97.7 F Pulse Rate Pulse Rate [Pulse Oximeter] 69 71 70 Respiratory Rate 18 18 18 Blood Pressure [Le ft Arm] 96/70 109/74 121/73 Pulse Oximetry 93 90 97 Oxygen Delivery Me thod Nasal Cannula Nasal Cannula Nasal Cannula Oxygen Flow Rate 1.5 1.5 1 03/16/24 22:30 03/16/24 23:00 03/17/24 00:51 Temperature 98.1 F Pulse Rate 65 Pulse Rate [Pulse Oximeter] 69 Respiratory Rate 16 Blood Pressure [Le ft Arm] 118/75 Pulse Oximetry 97 97 Oxygen Delivery Me thod Room Air Oxygen Flow Rate 03/17/24 00:51 03/17/24 00:51 03/17/24 03:00 Temperature Pulse Rate Pulse Rate [Pulse Oximeter] 69 64 Respiratory Rate 16 20 Blood Pressure [Le ft Arm] 115/73 Pulse Oximetry 97 98 Oxygen Delivery Me thod Room Air Room Air Oxygen Flow Rate 1 2 03/17/24 07:08 03/17/24 07:20 03/17/24 07:20 Temperature Pulse Rate 86 Pulse Rate [Pulse Oximeter] Respiratory Rate 18 Blood Pressure [Le ft Arm] Pulse Oximetry 97 97 Oxygen Delivery Me thod Nasal Cannula Oxygen Flow Rate 2 03/17/24 07:20 03/17/24 07:20 03/17/24 11:00 Temperature 97.7 F 98.3 F Pulse Rate Pulse Rate [Pulse Oximeter] 90 66 Respiratory Rate 18 18 14 Blood Pressure [Le ft Arm] 138/85 114/71 Pulse Oximetry 97 94 Oxygen Delivery Me thod Room Air Nasal Cannula Oxygen Flow Rate 2 1.5 Labs Labs: Laboratory Results - last 24 hr 03/17/24 06:23 WBC 10.30 RBC 3.23 L Hgb 9.7 L Hct 31.1 L MCV 96 MCH 30 M[address]C [address] 15.9 H Plt Count 175 Neut % (Auto) 76.3 H Lymph % (Auto) 8.7 L [place] % (Auto) 12.7 H Eos % (Auto) 1.7 Baso % (Auto) 0.4 Neut # (Auto) 7.90 H Lymph # (Auto) 0.90 [place] # (Auto) 1.30 H Eos # (Auto) 0.18 Baso # (Auto) 0.04 Abs Immat Gran (auto) 0.02 Imm/Tot Granulo (auto) 0.2 Sodium 131 L Potassium 3.6 BUN 18 Creatinine 0.6 Estimated Creat Clear 71.08 Estimated GFR 91
--- NOTE | 2024-03-17 15:51 | PC.SOCIAL ---
Discharge planning- Received a message from Nieves Silva in admissions at [facility] informing that patient was accepted for admission for tomorrow. Patient was also accepted to [facility] in a shared room. Per MD, patient is not ready for discharge today. Phone call to patient's son Ken to provide update on discharge plans. Patient and family would like patient to go to [facility] in [place]. Patient's son will transport patient to [facility] at 10:00 am tomorrow. Provided update to nursing. Social Work will follow up as needed.
--- NOTE | 2024-03-17 17:53 | PC.NURSE ---
End of shift: Patient pleasant and cooperative, A&O. VSS, afebrile. She is on 1.5L O2 via nasal cannula. Patient denies pain with inactivity, when she stands she reports pain in her hip, managed with scheduled tylenol. Tolerating regular diet. Up to bathroom 1A with walker and gaitbelt.
[2024-03-17] MEDS: ROSUVASTATIN CALCIUM 10 MG TABLET PO (20:52)
[2024-03-18] MEDS: ACETAMINOPHEN 500 MG TABLET 1000 MG PO ×2 (00:52→06:45)
[2024-03-18 03:45] VITALS: BP 122/86; PULSE 66; RESP 16; TEMP 36.9; O2SAT 95
[2024-03-18 06:25] LABS: Hemoglobin* 9.9 gm/dL (12.0-16.0)
[2024-03-18] MEDS: OMEPRAZOLE 20 MG CAPSULE DR 40 MG PO (06:35)
--- NOTE | 2024-03-18 06:55 | PC.NURSE ---
End of shift note [id number]: Pt has been denying pain when asked. Surgical incision to R hip covered with adhesive dressing which is C/D/I. Pt on 1.5 LPM of oxygen though she does remove this in her sleep at times with staff reapplying PRN. Pt noted to be confused this morning and did not recall eating yesterday though documentation states she ate 75% for all meals. Pt transfers/ambulates with assist of 1 using FWW and gait belt. She remains on tele with sinus arrhythmia noted. Plan for pt to discharge to [facility] today with son providing transport. Protective dressing applied to mid spine due to noting blanchable redness to this area this morning due to pt?s silvio prominence area. ?Mepilex dressing to sacrum placed by evening nurse noted to be C/D/I. Pt has no open areas noted though has redness/purple discoloration to this area observed upon inspection.
[2024-03-18 07:00] VITALS: BP 114/83; PULSE 90; RESP 16; TEMP 37.1; O2SAT 98
[2024-03-18 08:24] LABS: Chloride* 90 mmol/L (96-114); Potassium* 3.8 mmol/L (3.6-5.1); Sodium* 132 mmol/L (135-149)
[2024-03-18 08:27] LABS: Blood Urea Nitrogen* 19 mg/dL (7-30); Creatinine* 0.6 mg/dL (0.5-1.5); Est. Creatinine Clearance* 33.29; Estimated Glomerular Filt Rate 91 ml/min; Glucose* 108 mg/dL (60-115)
[2024-03-18 08:28] LABS: Calcium* 8.8 mg/dL (8.4-10.6); Magnesium* 1.9 mg/dL (1.5-2.6)
[2024-03-18 08:29] LABS: Anion Gap 2 mEq/L (7-15); Carbon Dioxide* > 40 mmol/L (20-32)
--- NOTE | 2024-03-18 08:46 | PM.DS1 ---
DS: Providers Provider Date Seen: 03/18/24 Date of admission: 03/15/24 16:46 Primary care physician: Sylvia Guillen MD Admitting Clinician: Ganga Giraldo MD Consults: 03/14/24 01:36 Consult to Physical Therapy [CONS] Routine Comment: Reason(s) for PT Consult:: Evaluate and Treat Any Restrictions?:: Unknown Consult to Graphic Engineer [CONS] Routine Comment: Reason for Consult:: Possible SNF placement 03/14/24 01:38 Consult to Occupational Therapy [CONS] Routine Comment: Reason(s) for OT Consult:: Evaluate and Treat Any Restrictions?:: Unknown 03/14/24 01:40 Consult to Physician [CONS] Routine Comment: Consulting Provider: Orthopedics, [facility] Has provider been notified: Yes 03/14/24 05:37 Consult to Occupational Therapy [CONS] Routine Comment: Reason(s) for OT Consult:: Evaluate and Treat Any Restrictions?:: No Restrictions Consult to Physical Therapy [CONS] Routine Comment: Reason(s) for PT Consult:: Evaluate and Treat Any Restrictions?:: No Restrictions 03/14/24 15:52 Consult to Occupational Therapy [CONS] Routine Comment: Reason(s) for OT Consult:: ADLs Prior to Discharge Any Restrictions?:: No Restrictions Comment: Consult to Occupational Therapy [CONS] Routine Comment: Reason(s) for OT Consult:: Evaluate and Treat Any Restrictions?:: No Restrictions Consult to Physical Therapy [CONS] Routine Comment: Ambulate in the malin today Reason(s) for PT Consult:: Evaluate and Treat Any Restrictions?:: No Restrictions Comment: Nursing Activity Consult to Physical Therapy [CONS] Routine Comment: Ambulate in the malin today Reason(s) for PT Consult:: THR TX Protocol POD#0 Any Restrictions?:: No Restrictions Comment: Nursing Activity: See nursing activity order Consult to Physician [CONS] Routine Comment: Consulting Provider: Hospitalists Has provider been notified: No Consult to Graphic Engineer [CONS] Routine Comment: Reason for Consult:: Discharge Planning Needs Consult to Graphic Engineer [CONS] Routine Comment: Reason for Consult:: Discharge Planning Needs Attending Physician on discharge: Ryan Silva MD DS: Diagnosis Discharge Diagnosis (1) Status post closed fracture of one hip: Status: Acute DS: Summary Hospital Course Hospital Course: Chief complaint: Fall with Resulting Hip Fracture Narrative: Marty Rivera is seen as an Interactive Telehealth visit. Marty Rivera is a 79 year old female who presented to the emergency room after falling onto her right side and suffering injury. Marty gives the history that she was outside today and her phone went . She went inside to plug in her phone and went to sit down on a chair and missed the chair and fell onto her right side. She immediately experienced pain in her right side and called her son. Eventually the ambulance was called and she was brought into the emergency room for further evaluation and treatment. In the emergency room she was found to have a right femoral neck fracture. With the need for surgical procedure, she is currently being admitted to the medical service for further evaluation and treatment. At the time I am seeing Marilee, she does confirm the above history. She denies any recent chest pain but does have chronic shortness of breath for which she is on chronic home oxygen. She states that she was in the ER recently with a COPD exacerbation but has been fine since that time. She denies any abdominal pain. She denies any lightheadedness or dizziness. She has had anesthesia in the past and denies any problems with anesthesia. She states her pain is under adequate control at the time I am seeing her and denies any other new complaints or problems currently. HOSPITAL COURSE Assessment and plan (1) Closed hip fracture: Problem details: - s/p right cemented bipolar hemiarthroplasty (DOS: 03/14/24; Dr. Giraldo) - routine post op cares - continue PT/OT - VTE prophylaxis with rivaroxaban - recommend SNF upon discharge for rehab Status: Acute (2) Frailty syndrome in geriatric patient: Status: Chronic (3) ALLIE (obstructive sleep apnea): Status: Chronic (4) Pulmonary hypertension: Problem details: Severe. Predominantly Group 3. Recently prescribed continuous oxygen at 2 liters/minute Status: Chronic (5) COPD (chronic obstructive pulmonary disease): Problem details: followed by [place] [facility], on chronic home oxygen (nocturnal oxygen changed to full-time) 01/27 - Chronic, severe, although she has a recent exacerbation, it was treated with prednisone and she has finished a course of that and is no longer in exacerbation at present. Status: Chronic (6) Osteopenia: Problem details: No DEXA scan in [place] records. Status: Chronic (7) NYHA class 3 heart failure with preserved ejection fraction: Problem details: Dx early 2022. See scanned [place] [facility] note. Has chronic leg edema. - Chronic diastolic, not currently in exacerbation Status: Chronic (8) Pericardial effusion: Problem details: 03/16/24 ECHO: Trivial pericardial effusion Status: Acute (9) Ascending aorta dilation: Problem details: [facility], may 2023 vargas, stable Requires regular imaging surveillance. Repair in 2019. 03/16/24 03/16/2024 echo: Ascending aorta is dilated maximal diameter of 4.1 cm. Status: Chronic (10) Postoperative atrial fibrillation: Problem details: 03/16/24 Postop atrial fibrillation, new, associated with rapid ventricular rate, converted on diltiazem drip, total duration was about [address] Prieto from [facility] over the phone who recommended starting therapeutic Xarelto dosing and digoxin. She converted before I started digoxin. I have increased her Xarelto to be therapeutic, started low-dose oral metoprolol, and will have her follow-up with her crocheter, Mingo Bhatia, at [place] in 1 month. Post Hospital Follow Up Recs 1) PCP+cardiology Follow up for mgmt of atrial fibrillation Time Spent with Patient Time attestation: Total time spent providing and/or coordinating discharge services: Exam Narrative: Exam Narrative: Gen: no acute distress HEENT: NCAT EOMI mmm CV: RRR normal s1 s2 Lungs: CTAB Abd: Soft,nt, nd Neuro: Alert, oriented, CN grossly intact; nonfocal screening?exam Psych: appropriate affect MSK: age appropriate muscle mass Const: Vital Signs, click to edit/add: Vital Signs - 24 hr 03/17/24 11:00 03/17/24 15:00 03/17/24 15:00 Temperature 98.3 F 98.4 F Pulse Rate Pulse Rate [Pulse Oximeter] 66 98 Respiratory Rate 14 16 Blood Pressure [Le ft Arm] 114/71 105/71 Pulse Oximetry 94 96 96 Oxygen Delivery Me thod Nasal Cannula Nasal Cannula Oxygen Flow Rate 1.5 1.5 03/17/24 15:00 03/17/24 15:00 03/17/24 16:56 Temperature Pulse Rate 82 Pulse Rate [Pulse Oximeter] 98 Respiratory Rate 16 16 Blood Pressure [Le ft Arm] Pulse Oximetry 96 Oxygen Delivery Me thod Nasal Cannula Oxygen Flow Rate 1.5 03/17/24 19:00 03/17/24 23:00 03/17/24 23:00 Temperature 98.5 F Pulse Rate Pulse Rate [Pulse Oximeter] 79 72 Respiratory Rate 18 16 Blood Pressure [Le ft Arm] Pulse Oximetry 97 95 Oxygen Delivery Me thod Nasal Cannula Oxygen Flow Rate 1.5 03/17/24 23:00 03/17/24 23:00 03/17/24 23:05 Temperature 98.4 F Pulse Rate 68 Pulse Rate [Pulse Oximeter] 72 Respiratory Rate 16 16 Blood Pressure [Le ft Arm] 115/77 Pulse Oximetry 96 96 Oxygen Delivery Me thod Nasal Cannula Nasal Cannula Oxygen Flow Rate 1.5 1.5 03/18/24 03:45 03/18/24 07:00 03/18/24 07:00 Temperature 98.5 F 98.7 F Pulse Rate Pulse Rate [Pulse Oximeter] 66 90 Respiratory Rate 16 16 Blood Pressure [Le ft Arm] 122/86 114/83 Pulse Oximetry 95 98 98 Oxygen Delivery Me thod Nasal Cannula Nasal Cannula Oxygen Flow Rate 1.5 1.5 03/18/24 07:00 03/18/24 07:00 Temperature Pulse Rate Pulse Rate [Pulse Oximeter] 90 Respiratory Rate 16 16 Blood Pressure [Le ft Arm] Pulse Oximetry 98 Oxygen Delivery Me thod Nasal Cannula Oxygen Flow Rate 1.5 DS: Data Data Completed and Pending Completed studies during hospitalization: Procedures Xray Hip Findings: Hardware from a right hip arthroplasty is in satisfactory position. Bone alignment is normal. No sign of acute fracture. There are postoperative changes in the soft tissues. Labs on day of discharge: Labs from last 24 hours 03/18/24 03/18/24 07:50 06:00 Hgb 9.9 L Sodium 132 L Potassium 3.8 Chloride 90 L Carbon Dioxide > 40 H* Anion Gap 2 L BUN 19 Creatinine 0.6 Estimated Creat Clear 33.29 Estimated GFR 91 Glucose 108 Calcium 8.8 Magnesium 1.9 TSH Pending Discharge Plan Discharge Disposition: [facility] Date of Admission: 03/15/24 16:46 Attending Provider on Discharge: Ryan Silva Consulting Providers: Candice Fisher; Maikel Cuevas; Ryan Silva; Lauren Rhodes; Monserrat Cornell; Dali Mora; Belinda Caraballo; [place]; Ami Rodas; Antonio Vargas; Cosme Keene; Garett Odonnell; Giovani Amador; Tur Orosco; Mandy Gil; Shefali Rivera; Gee Caldwell; Homer Lugo; Brent Bar; Parveen Claudio; Juan Francisco Britton Primary Care Provider: Sylvia Guillen Condition: Stable Anticipated Discharge Date/Time: 03/18/24 08:19 Discharge Medications: New sennosides [Senna Lax] 8.6 mg Tablet 17.2 mg PO BID PRN (Reason: constipation) Qty: 100 0RF Xarelto 20 mg tablet 20 mg PO DAILY Qty: 30 0RF Rx Instructions: take with evening meal. metoprolol tartrate 25 mg tablet 25 mg PO BID Qty: 60 0RF oxycodone 5 mg tablet 5 mg PO Q6H MDD 6 PRN (Reason: pain) Qty: 30 0RF Rx Instructions: Take as needed for postop pain. Continued torsemide 20 mg tablet 20 mg PO DAILY rosuvastatin 10 mg tablet 10 mg PO HS aspirin 81 mg tablet,delayed release (DR/EC) 81 mg PO DAILY acetaminophen 500 mg capsule 1,000 mg PO Q6H PRN albuterol sulfate [Ventolin HFA] 90 mcg/actuation HFA aerosol inhaler 2 puff INHALATION Q4H PRN Patient Comments: INHALE 2 PUFFS BY MOUTH EVERY 4 HOURS NEEDED FOR WHEEZING AND FOR SHORTNESS OF BREATH fluticasone propionate 50 mcg/actuation spray,suspension 2 spray INTRANASAL DAILY PRN fexofenadine-pseudoephedrine [24HR Allergy-Congestion Relief] 180-240 mg tablet extended release 24 hr 1 tab PO DAILY PRN cyanocobalamin (vitamin B-12) 1,000 mcg/mL kit 1,000 mcg IM Q30D Rx Instructions: MONTHLY ipratropium-albuterol 0.5 mg-3 mg(2.5 mg base)/3 mL solution for nebulization 3 ml inhalation QID PRN (DME) Home Oxygen Misc See Rx Instructions .Route Qty: 1 0RF Rx Instructions: As directed Trelegy Ellipta 100-62.5-25 mcg blister with device 1 ea INHALATION DAILY duloxetine [Cymbalta] 20 mg capsule,delayed release(DR/EC) 20 mg PO DAILY Rx Instructions: Has to be brand name Cymbalta no substitution cholecalciferol (vitamin D3) 25 mcg (1,000 unit) tablet 25 mcg PO DAILY spironolactone 25 mg tablet PO Hold Instructions: Doctor's Order omeprazole 40 mg capsule,delayed release(DR/EC) 40 mg PO DAILY Qty: 30 2RF Discharge Orders: Discharge Order (Routine); Ordered 03/18/24 Ordered By: Ryan Silva Activity Level: Activity as Tolerated, Weight Bearing as Tolerated and Use Walker Discharge Diet: Regular Follow Up Appointments: [facility] [Outside] (Patient being discharged to [facility].) Sylvia Guillen MD [Primary Care Provider] - (Please schedule post hospital follow up with Primary Care Physician in 3-5 days Please schedule follow up with [facility] in 1-2 weeks for management of atrial fibrillation Please check BMPon 03/19) Forms: [employer] Info Instructions Discharge Comments: see Dr Giraldo in 6 weeks Admit to: SNF Discharge Potential: Good Length of Stay: <30 days Can use facility standing orders?: Yes Code Status: DNR/DNI Rehab Potential: Good Therapy: Physical Therapy and Occupational Therapy Therapy Orders: Evaluate and Treat Oxygen: Yes Oxygen Delivery Method: Nasal Cannula Oxygen Flow Rate: 2 liters oxygen Orders are good >30 days: Yes Signature: Ryan Silva
[2024-03-18] MEDS: SENNOSIDES 1 TAB TABLET 2 TAB PO (08:59)
[2024-03-18] MEDS: DULOXETINE HCL 20 MG CAPSULE DR PO (08:59)
[2024-03-18] MEDS: RIVAROXABAN 10 MG TABLET 15 MG PO (09:00)
[2024-03-18] MEDS: METOPROLOL TARTRATE 25 MG TABLET PO (09:00)
[2024-03-18] MEDS: FLUTICASONE PROPIONATE NASAL 1 SPRAY NOSTRIL-B (09:01)
[2024-03-18] MEDS: TORSEMIDE 20 MG TABLET PO (09:05)
[2024-03-18] MEDS: 0.9 % SODIUM CHLORIDE 500 ML 500 ML IV (09:05)
[2024-03-18] MEDS: SODIUM CHLORIDE 0.9 % (FLUSH) 10 ML SYRINGE 5 ML IVF (09:06)
[2024-03-18] MEDS: Fluticasone-Umeclidin-Vilanter [Trelegy Ellipta] 100-62.5-25 mcg IH (09:07)
[2024-03-18] MEDS: ALBUTEROL INHALER 2 PUFF IH (09:09)
--- NOTE | 2024-03-18 09:41 | PC.SOCIAL ---
Discharge planning- Patient is cleared by MD to discharge today. Met with patient and discussed discharge plans. Informed patient that [facility] is a [facility] [place], patient understands. Phone call to patient's son Ken and provided update. Ken will transport at 10:00 am. Ken will bring patient some clothing. Completed preadmission screening. Confirmation #[id number]. Secure e-mailed discharge orders and preadmission screening to Nieves Silva in admissions at [facility]. Confirmed information was received. Social Work will follow up as needed.
--- NOTE | 2024-03-18 10:48 | PC.NURSE ---
Discharge: Patient pleasant and cooperative, A&O, she is forgetful at times. VSS, afebrile. IV removed with tip intact. Discharge instructions provided to patient and family. D/C to [facility] at 1015 with son.
== END 2024-03-18 10:15 | DRG 522 ==
LOC: ED 23:11 → MEDSURG 03-14 01:36 → OR 03-14 11:32 → MEDSURG 03-14 11:33 → OR 03-15 16:48 → MEDSURG 03-15 16:48
PROVIDERS: Family Medicine; Hospitalist; Admitting Provider Orthopaedic Surgery; Emergency Provider Family Medicine; PCP Family Medicine; Visit Provider Orthopaedic Surgery
PROC: 0SRR019 Replacement of Right Hip Joint, Femoral Surface with Metal Synthetic Substitute, Cemented, Open Approach (ICD-10-PCS; principal; 2024-03-14 12:30)
DX: S72.001A Fracture of unspecified part of neck of right femur, initial encounter for closed fracture (principal); I50.32 Chronic diastolic (congestive) heart failure; I97.191 Other postprocedural cardiac functional disturbances following other surgery; I31.39 Other pericardial effusion (noninflammatory); I48.91 Unspecified atrial fibrillation; W07.XXXA Fall from chair, initial encounter; I11.0 Hypertensive heart disease with heart failure; G47.33 Obstructive sleep apnea (adult) (pediatric); I27.23 Pulmonary hypertension due to lung diseases and hypoxia; J44.9 Chronic obstructive pulmonary disease, unspecified; Z99.81 Dependence on supplemental oxygen; M85.80 Other specified disorders of bone density and structure, unspecified site; M54.9 Dorsalgia, unspecified; G89.29 Other chronic pain; F17.210 Nicotine dependence, cigarettes, uncomplicated; D50.9 Iron deficiency anemia, unspecified; I77.810 Thoracic aortic ectasia; E53.8 Deficiency of other specified B group vitamins; R54 Age-related physical debility
CPT/HCPCS: 01210; 36415; 71045; 73501; 73502; 76000; 80048; 82077; 82565; 83735; 84132; 84295; 84443; 84520; 85018; 85025; 85610; 93005; 93306; 94761; 97110; 97116; 97161; 97165; 97530; 97535; 99140; 99284; 99285; A9270; C1776; J0690; J1170; J2270; J2371; J2405; J2704; J3490; J7030; J7120; J7512

== ENCOUNTER 2024-04-02 12:54 | Inpatient (IN) | payer MEDICARE, BC, SELFPAY ==
[2024-04-02] VITALS (13 sets, daily range): BP systolic 74–113; BP diastolic 48–78; PULSE 74–111; RESP 18–32; TEMP 36.1–37; O2SAT 97–100; BMI 19.4; BMI 19.1
--- NOTE | 2024-04-02 13:11 | CRLHL7_ITS ---
For Patients: As a result of the Century Cures Act, medical imaging exams and procedure reports are released immediately into your electronic medical record. You may view this report before your referring provider. If you have questions, please contact your health care provider. Indication: Shortness of breath Technique: Two views of the chest Comparison: Chest radiograph on March 13, 2024 Findings: The patient is again rotated to the right. The cardiomediastinal silhouette is unchanged compared to prior exam. The heart size within normal limits. No focal airspace consolidation, pleural effusion, or pneumothorax. Likely chronic emphysematous changes. No displaced fractures. Likely remote compression deformities of the thoracic vertebral bodies. Abdominal aorta graft with smaller stents, unchanged. Impression: No acute cardiopulmonary process. Dictated by Omari Gordon MD @ 04/02/2024 2:39:45 PM (Electronically Signed)
[2024-04-02 13:20] LABS: HCO3 VBG 34 mmol/L (21-28); Lactate* 2.9 mmol/L (0.5-1.9); PCO2 VBG 52 mmHG (40-50); PO2 VBG < 30.1 mmHG (25-47)
[2024-04-02 13:37] LABS: Chloride* 94 mmol/L (96-114)
[2024-04-02 13:38] LABS: Albumin* 4.4 g/dL (3.3-5.0); Sodium* 135 mmol/L (135-149)
[2024-04-02 13:39] LABS: Potassium* 5.1 mmol/L (3.6-5.1)
[2024-04-02 13:40] LABS: Est. Creatinine Clearance* 30.38; Estimated Glomerular Filt Rate 57 ml/min
[2024-04-02 13:41] LABS: Alanine Aminotransferase* 19 U/L (4-35); Alkaline Phosphatase* 110 U/L (40-150); Anion Gap 9 mEq/L (7-15); Aspartate Amino Transferase* 25 U/L (12-35); Basophils Absolute Auto 0.02 K/uL (0.00-0.30); Basophils Percent Auto 0.2 % (0.0-3.0); Bilirubin Direct* 0.4 mg/dL (0.0-0.5); Bilirubin Total* 0.5 mg/dL (0.1-1.5); Blood Urea Nitrogen* 31 mg/dL (7-30); Carbon Dioxide* 32 mmol/L (20-32); Eosinophils Absolute Auto 0.07 K/uL (0.00-0.50); Eosinophils Percent Auto 0.7 % (0.0-7.0); Hematocrit 22.9 % (33.0-51.0); Immature Granulocytes Abs Auto 0.04 K/uL (0.00-0.30); Immature Granulocytes Pct Auto 0.4 %; Mean Corpuscular HGB Conc 29 gm/dL (32-36); Mean Corpuscular Hemoglobin 30 pg (26-34); Mean Corpuscular Volume 104 fL (80-100); Monocytes Percent Auto 7.9 % (0.0-11.0); Neutrophils Percent Auto 80.8 % (42.0-72.0); Platelet Count* 651 K/uL (140-440); RDW Coefficient of Variation % 18.3 % (11.5-15.5); Red Blood Count 2.21 m/uL (4.00-5.20); Total Protein* 7.2 g/dL (6.0-8.3); White Blood Count* 9.54 K/uL (4.50-11.00)
[2024-04-02 13:42] LABS: Calcium* 9.3 mg/dL (8.4-10.6); Glucose* 150 mg/dL (60-115); Magnesium* 2.5 mg/dL (1.5-2.6)
[2024-04-02 13:44] LABS: C Reactive Protein* 0.6 mg/dL (0.5-1.0)
[2024-04-02 13:46] LABS: Hemoglobin* 6.6 gm/dL (12.0-16.0)
[2024-04-02 13:47] LABS: Slide Review Reflex No
[2024-04-02 13:56] LABS: Troponin, Point-of-Care* 0.01 ng/ml (0.01-0.04)
[2024-04-02 14:15] LABS: NT Pro B Type NatriureticPept* 1030 pg/mL; Troponin I* < 0.01 ng/mL (0.01-0.04)
--- NOTE | 2024-04-02 14:21 | ED_ITS ---
HPI - General Adult General Chief complaint: Shortness of Breath/Dyspnea Stated complaint: transfusion Time Seen by Provider: 04/02/24 12:56 Source: patient and family Mode of arrival: ambulatory Limitations: no limitations History of Present Illness HPI narrative: Patient is a 79-year-old female with a rather complex medical history presenting today with shortness of breath. Patient suffered a hip fracture recently and was at [facility] doing rehabilitation. She went home this morning. However, for the last couple of days, her son has noticed that she has been becoming more and more weak, more short of breath and more pale. Patient states that she has been feeling okay until today really hit her when she felt very weak and very short of breath. She denies chest pain. She states that she just can not seem to catch her breath and it gets worse with physical activity. She states she has not had a bowel movement in the last 3 days but prior to that has not noticed any dark stools. She denies vomiting or nausea. She has a normal appetite which, for her, is not very good to begin with. Per her son she was not able to walk from her chair to the bathroom today after arriving home. Patient does li ve by herself. She denies fevers, had chills earlier today. No urinary symptoms. She has chronic abdominal discomfort which is not new for her she denies any new or concerning abdominal pain. She states that she feels like her whole body is cramping and that has been going on for several days. Related Data Home Medications ?Medication ?Instructions ?Recorded ?Confirmed albuterol sulfate 90 mcg/actuation 2 puff inhalation Q4H PRN 04/24/22 04/02/24 aerosol inhaler (Ventolin HFA) cyanocobalamin (vitamin B-12) 1,000 mcg IM Q30D 12/18/22 04/02/24 1,000 mcg/mL injection kit fexofenadine-pseudoephedrine ER 1 tab PO DAILY PRN 12/18/22 04/02/24 180 mg-240 mg tablet,ext.release 24 hr (24HR Allergy-Congestion Relief) fluticasone propionate 50 2 spray intranasal DAILY PRN 12/18/22 04/02/24 mcg/actuation nasal spray,suspension ipratropium 0.5 mg-albuterol 3 mg 3 ml inhalation QID PRN 12/18/22 04/02/24 (2.5 mg base)/3 mL nebulization soln acetaminophen 500 mg capsule 1,000 mg PO Q6H PRN 11/28/23 04/02/24 aspirin 81 mg tablet,delayed 81 mg PO DAILY 11/28/23 04/02/24 release rosuvastatin 10 mg tablet 10 mg PO HS 11/28/23 04/02/24 torsemide 20 mg tablet 20 mg PO DAILY 11/28/23 04/02/24 spironolactone 25 mg tablet PO 03/06/24 cholecalciferol (vitamin D3) 25 25 mcg PO DAILY 03/14/24 04/02/24 mcg (1,000 unit) tablet duloxetine 20 mg capsule,delayed 20 mg PO DAILY 03/14/24 04/02/24 release (Cymbalta) fluticasone fur. 100 mcg-umeclid 1 ea inhalation DAILY 03/14/24 04/02/24 62.5 mcg-vilant 25 mcg inhalat.powder (Trelegy Ellipta) Previous Rx's ?Medication ?Instructions ?Recorded Home Oxygen #1 ea 12/20/22 omeprazole 40 mg capsule,delayed 40 mg PO DAILY #30 caps 03/06/24 release metoprolol tartrate 25 mg tablet 25 mg PO BID #60 tabs 03/18/24 oxycodone 5 mg tablet 5 mg PO Q6H PRN pain #30 tabs 03/18/24 rivaroxaban 20 mg tablet (Xarelto) 20 mg PO DAILY #30 tabs 03/18/24 sennosides 8.6 mg tablet (Senna 17.2 mg (2 x 8.6 mg) PO BID PRN 03/18/24 Lax) constipation #100 tabs Allergies Allergy/AdvReac Type Severity Reaction Status Date / Time erythromycin base Allergy Intermediate dry heaves Verified 04/02/24 13:06 Penicillins Allergy Intermediate Shortness Verified 04/02/24 13:06 of Breath & Fainting tetanus toxoid, adsorbed Allergy Intermediate Dizziness Verified 04/02/24 13:06 & Fainting codeine AdvReac Mild Rash Verified 04/02/24 13:06 alendronate sodium AdvReac Unknown Gastrointestinal Verified 04/02/24 13:06 [From Fosamax] Upset Review of Systems Status of ROS: Reports: 10 or more systems reviewed and unremarkable except as noted in History and below [facility] Medical History Vitamin D deficiency ?E55.9 - Vitamin D deficiency, unspecified (ICD-10) Frailty syndrome in geriatric patient ?R54 - Age-related physical debility (ICD-10) Chronic GI bleeding ?K92.2 - Gastrointestinal hemorrhage, unspecified (ICD-10) Normal cardiac stress test (~01/2023) ALLIE (obstructive sleep apnea) ?G47.33 - Obstructive sleep apnea (adult) (pediatric) (ICD-10) Iron deficiency anemia (2019) ?D50.9 - Iron deficiency anemia, unspecified (ICD-10) Subarachnoid hemorrhage following injury (10/2018) ?S06.6XAA - Traumatic subarachnoid hemorrhage with loss of consciousness status unknown, initial encounter (ICD-10) Ascending aorta dilation ?I77.810 - Thoracic aortic ectasia (ICD-10) Dyspnea on exertion ?R06.09 - Other forms of dyspnea (ICD-10) B12 deficiency ?E53.8 - Deficiency of other specified B group vitamins (ICD-10) TIA (transient ischemic attack) (~2017) ?G45.9 - Transient cerebral ischemic attack, unspecified (ICD-10) Pulmonary hypertension ?I27.20 - Pulmonary hypertension, unspecified (ICD-10) Hearing loss of both ears ?H91.93 - Unspecified hearing loss, bilateral (ICD-10) IBS (irritable bowel syndrome) ?K58.9 - Irritable bowel syndrome without diarrhea (ICD-10) Macular degeneration ?H35.30 - Unspecified macular degeneration (ICD-10) Weakness generalized ?R53.1 - Weakness (ICD-10) Thyroid nodule ?E04.1 - Nontoxic single thyroid nodule (ICD-10) Osteopenia ?M85.80 - Other specified disorders of bone density and structure, unspecified site (ICD-10) Depression ?F32.A - Depression, unspecified (ICD-10) Diastolic heart failure (10/2022) ?I50.30 - Unspecified diastolic (congestive) heart failure (ICD-10) Essential hypertension ?I10 - Essential (primary) hypertension (ICD-10) Cigarette nicotine dependence ?F17.210 - Nicotine dependence, cigarettes, uncomplicated (ICD-10) NYHA class 3 heart failure with preserved ejection fraction ?I50.30 - Unspecified diastolic (congestive) heart failure (ICD-10) Fibromyalgia ?M79.7 - Fibromyalgia (ICD-10) Chronic back pain ?M54.9 - Dorsalgia, unspecified (ICD-10) ?G89.29 - Other chronic pain (ICD-10) COPD (chronic obstructive pulmonary disease) ?J44.9 - Chronic obstructive pulmonary disease, unspecified (ICD-10) Acute on chronic respiratory failure with hypoxia and hypercapnia (12/20/22) ?J96.21 - Acute and chronic respiratory failure with hypoxia (ICD-10) ?J96.22 - Acute and chronic respiratory failure with hypercapnia (ICD-10) Surgical History History of colonoscopy with polypectomy ?Z98.890 - Other specified postprocedural states (ICD-10) ?Z86.010 - Personal history of colonic polyps (ICD-10) 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 Long time and current smoker, not ready to quit What is your current living situation?: I presently have a place to live Problems where you live: no known problems Problems where you live details: n/a In the past 12 months, utilities in danger of being shut off: no In past 12 months, lack of transportation kept you from medical appts, meetings, work, or getting things needed for daily living: no In the past 12 mos, have been you worried that your food would run out before you had money to buy more?: never true In the past 12 mos, the food you bought just didn't last and you didn't have money to buy more?: never true Smoking Status: Current every day smoker What tobacco products do you use: cigarettes Smoking packs per day: 0.5 Smoking cigarettes per day: 10.0 Do you use any of these nicotine containing products: None Second hand tobacco smoke exposure: No How often do you have a drink containing alcohol: 2-3 times a week Alcohol type: wine Alcohol type details: 1 glass of wine a night How many standard drinks containing alcohol do you have on a typical day: 1 or 2 How often do you have six or more drinks on one occasion: Never AUDIT-C Alcohol total score: 3 Non-prescribed substance use: denies use Caffeine: Yes How often does anyone, including family, friends and others, physically hurt you : never How often does anyone, including family, friends and others, insult or talk down to you: never How often does anyone, including family, friends and others, threaten you with harm: never How often does anyone, including family, friends and others, scream or curse at you: never Little interest or pleasure in doing things: more than half the days Feeling down, depressed, or hopeless: more than half the days service: No Exam Narrative: Exam Narrative: Thin, elderly patient in no acute distress. Alert and oriented. Answers questions appropriately. Mood and affect are appropriate. Thoughts are goal oriented and rational. No tangential or magical thinking noted. Patient cannot complete a sentence without having to catch her breath. HEENT: Normocephalic atraumatic. Pupils are equally round reactive to light. Extraocular muscles are intact. Conjunctivae are moist without any icterus noted. Moist mucous membranes. Mucous membranes are pale. Cardiovascular: Heart is regular rate and rhythm. Lungs: Clear to auscultation bilaterally . Breath sounds are slightly decreased bilaterally. Abdomen: Soft and nontender nondistended with normal bowel sounds. Extremities: Right lower extremity has trace edema, left is without edema. Skin: Well perfused, pale Const: Vital Signs, click to edit/add: Vital Signs - 24 hr 04/02/24 13:01 04/02/24 13:12 04/02/24 13:12 Temperature 98.1 F Pulse Rate [Pulse Oximeter] 94 Respiratory Rate 32 H Blood Pressure [Ri ght Upper Arm] 93/67 Pulse Oximetry 100 100 100 Oxygen Delivery Me thod Room Air Nasal Cannula Oxygen Flow Rate 2 Course Course ED Course: IV is established. Do lied if EKG, read by me, shows sinus tachycardia with a pulse of 107. She has an incomplete right bundle-branch block which is not new. Chest x-ray, read by me, does not show any acute infiltrates. Her CBC shows normal white blood cell count, hemoglobin 6.6 completely count is 651,000 VBG shows a pH of 7.4, pCO2 of 52 and HC03 of 34. Chemistries are fairly unremarkable. BUN is elevated at 31, creatinine is 1.0. Lactate is elevated at 2.9. Normal magnesium. LFTs are unremarkable. Troponin is less than 0.01. Normal CRP. BNP just above 1000. Triple swab is negative, D-dimer is pending at time of dictation. Blood type and screen ordered, 2 units of packed red blood cells ordered for transfusion. Given the amount of weakness, shortness of breath and significant anemia the patient is experiencing, I do think admission is appropriate. Did discuss the patient with Dr. Fisher who graciously accepts the patient for admission. Vital Signs Vital signs: Initial Vital Signs Temperature 98.1 F 04/02/24 13:01 Temperature Source Temporal Artery Scan 04/02/24 13:01 Pulse Rate 94 04/02/24 13:01 Respiratory Rate 32 H 04/02/24 13:01 Blood Pressure 93/67 04/02/24 13:01 Blood Pressure Mean 75 04/02/24 13:01 Blood Pressure Position Sitting 04/02/24 13:01 Pulse Oximetry 100 04/02/24 13:01 Oxygen Delivery Method Room Air 04/02/24 13:01 Vital Signs Temperature 98.1 F 04/02/24 13:01 Pulse Rate 94 04/02/24 13:01 Respiratory Rate 32 H 04/02/24 13:01 Blood Pressure 93/67 04/02/24 13:01 Pulse Oximetry 100 04/02/24 13:01 Oxygen Delivery Method Room Air 04/02/24 13:01 Temperature 98.1 F 04/02/24 13:01 Pulse Rate 94 04/02/24 13:01 Respiratory Rate 32 H 04/02/24 13:01 Blood Pressure 93/67 04/02/24 13:01 Pulse Oximetry 100 04/02/24 13:12 Oxygen Delivery Method Nasal Cannula 04/02/24 13:12 Oxygen Flow Rate 2 04/02/24 13:12 Medical Decision Making MDM Narrative Medical decision making narrative: 79-year-old female with weakness, worsening shortness of breath, anemia and history of oxygen dependent COPD and congestive heart failure- requiring blood transfusion-patient will be admitted for further management. Medical Records Medical records reviewed: Yes I reviewed the patient's medical records Lab Data Lab results reviewed: Yes I reviewed the patient's lab results Labs: Lab Results 04/02/24 04/02/24 04/02/24 Range/Units 13:12 13:15 13:18 WBC 9.54 (4.50-11.00) K/uL RBC 2.21 L (4.00-5.20) m/uL Hgb 6.6 L* (12.0-16.0) gm/dL Hct 22.9 L (33.0-51.0) % MCV 104 H (80-100) fL MCH 30 (26-34) pg MCHC 29 L (32-36) gm/dL RDW Coeff of Lane 18.3 H (11.5-15.5) % Plt Count 651 H (140-440) K/uL Neut % (Auto) 80.8 H (42.0-72.0) % Lymph % (Auto) 10.0 L (20-44) % Greenlee % (Auto) 7.9 (0.0-11.0) % Eos % (Auto) 0.7 (0.0-7.0) % Baso % (Auto) 0.2 (0.0-3.0) % Neut # (Auto) 7.70 H (1.7-7.0) K/uL Lymph # (Auto) 1.00 (0.90-2.90) K/uL Greenlee # (Auto) 0.80 (0.00-0.90) K/UL Eos # (Auto) 0.07 (0.00-0.50) K/uL Baso # (Auto) 0.02 (0.00-0.30) K/uL Abs Immat Gran (auto) 0.04 (0.00-0.30) K/uL Imm/Tot Granulo (auto) 0.4 % VBG pH 7.430 (7.32-7.43) VBG pCO2 52 H (40-50) mmHG VBG pO2 < 30.1 (25-47) mmHG VBG HCO3 34 H (21-28) mmol/L Sodium 135 (135-149) mmol/L Potassium 5.1 (3.6-5.1) mmol/L Chloride 94 L (96-114) mmol/L Carbon Dioxide 32 (20-32) mmol/L Anion Gap 9 (7-15) mEq/L BUN 31 H (7-30) mg/dL Creatinine 1.0 (0.5-1.5) mg/dL Estimated Creat Clear 30.38 Estimated GFR 57 ml/min Glucose 150 H (60-115) mg/dL Lactate 2.9 H (0.5-1.9) mmol/L Calcium 9.3 (8.4-10.6) mg/dL Magnesium 2.5 (1.5-2.6) mg/dL Total Bilirubin 0.5 (0.1-1.5) mg/dL Direct Bilirubin 0.4 (0.0-0.5) mg/dL AST 25 (12-35) U/L ALT 19 (4-35) U/L Alkaline Phosphatase 110 (40-150) U/L Troponin I < 0.01 L (0.01-0.04) ng/mL C-Reactive Protein 0.6 (0.5-1.0) mg/dL NT-Pro-B Natriuret Pep 1030 pg/mL Total Protein 7.2 (6.0-8.3) g/dL Albumin 4.4 (3.3-5.0) g/dL SARS-CoV-2 (PCR) Negative SARS-CoV-2 (Negative) Influenza Type A (PCR) Negative PCR FLU A (Negative) Influenza Type B (PCR) Negative PCR FLU B (Negative) RSV (PCR) Negative PCR RSV (Negative) POC Troponin I 0.01 (0.01-0.04) ng/ml Blood Type A Negative Antibody Screen NEGATIVE Crossmatch (AHG) See Detail Imaging Data Chest x-ray: Attestation: I have reviewed the pertinent imaging results. Radiologist's impression: Two views of the chest Comparison: Chest radiograph on March 13, 2024 Findings: The patient is again rotated to the right. The cardiomediastinal silhouette is unchanged compared to prior exam. The heart size within normal limits. No focal airspace consolidation, pleural effusion, or pneumothorax. Likely chronic emphysematous changes. No displaced fractures. Likely remote compression deformities of the thoracic vertebral bodies. Abdominal aorta graft with smaller stents, unchanged. Impression: No acute cardiopulmonary process. ECG Data Attestation: I personally reviewed and interpreted this ECG as follows: Discharge Plan Discharge Clinical Impression: Anemia, Weakness, Breath shortness Patient Disposition: Admitted As Observation Condition: Unchanged Prescriptions: No Action torsemide 20 mg tablet 20 mg PO DAILY rosuvastatin 10 mg tablet 10 mg PO HS aspirin 81 mg tablet,delayed release (DR/EC) 81 mg PO DAILY acetaminophen 500 mg capsule 1,000 mg PO Q6H PRN albuterol sulfate [Ventolin HFA] 90 mcg/actuation HFA aerosol inhaler 2 puff INHALATION Q4H PRN Patient Comments: INHALE 2 PUFFS BY MOUTH EVERY 4 HOURS NEEDED FOR WHEEZING AND FOR SHORTNESS OF BREATH fluticasone propionate 50 mcg/actuation spray,suspension 2 spray INTRANASAL DAILY PRN fexofenadine-pseudoephedrine [24HR Allergy-Congestion Relief] 180-240 mg tablet extended release 24 hr 1 tab PO DAILY PRN cyanocobalamin (vitamin B-12) 1,000 mcg/mL kit 1,000 mcg IM Q30D Rx Instructions: MONTHLY ipratropium-albuterol 0.5 mg-3 mg(2.5 mg base)/3 mL solution for nebulization 3 ml inhalation QID PRN (DME) Home Oxygen Misc See Rx Instructions .Route Qty: 1 0RF Rx Instructions: As directed Trelegy Ellipta 100-62.5-25 mcg blister with device 1 ea INHALATION DAILY duloxetine [Cymbalta] 20 mg capsule,delayed release(DR/EC) 20 mg PO DAILY Rx Instructions: Has to be brand name Cymbalta no substitution cholecalciferol (vitamin D3) 25 mcg (1,000 unit) tablet 25 mcg PO DAILY sennosides [Senna Lax] 8.6 mg Tablet 17.2 mg PO BID PRN (Reason: constipation) Qty: 100 0RF Xarelto 20 mg tablet 20 mg PO DAILY Qty: 30 0RF Rx Instructions: take with evening meal. metoprolol tartrate 25 mg tablet 25 mg PO BID Qty: 60 0RF oxycodone 5 mg tablet 5 mg PO Q6H MDD 6 PRN (Reason: pain) Qty: 30 0RF Rx Instructions: Take as needed for postop pain. spironolactone 25 mg tablet PO Hold Instructions: Doctor's Order omeprazole 40 mg capsule,delayed release(DR/EC) 40 mg PO DAILY Qty: 30 2RF Follow Up/Referrals: Sylvia Guillen MD [Primary Care Provider] -
[2024-04-02 14:36] LABS: PCR FLU A Negative PCR FLU A (Negative); PCR FLU B Negative PCR FLU B (Negative); PCR RSV Negative PCR RSV (Negative); SARS PCR* Negative SARS-CoV-2 (Negative)
--- NOTE | 2024-04-02 14:51 | P.IMHP_ITS ---
Hospitalist- H&P: HPI History of Present Illness Date Seen: 04/02/24 Chief complaint: transfusion Narrative: Marty Rivera is a 79 year old female with oxygen dependent COPD who presented to the ER with dyspnea, weakness and generalized achiness. Symptoms present for 3-4 days. No associated chest pain. She was discharged to home today; soon after leaving she was contacted by [facility] and told that her recent labs resulted with a Hgb <6; thus, presented to ED. ER Course and Findings: - Hgb 6.6 - 2U of PRBCs ordered with IV Lasix to be given in between units (but Lasix given in ED prior to blood) - given IV PPI - elevated lactate, BUN 31, Cr 1.0 - O2 stable on 2L (COPD, wears oxygen chronically) - lower BPs (90s systolic), HR 100s Marty has not had any abdominal pain, melena, or nausea. She has a history of anemia, presumably 2/2 GI angioectasias, followed by Hematology in the past. Recent history includes a R femoral neck fracture after a mechanical fall on 03/14/24. She was hospitalized here and had a R hip cemented bipolar hemiarthroplasty with Orthopedic surgery, discharged to [facility] on 03/18 until today. Discharge medications were to include a total of 5 days of Xarelto, followed by aspirin 81 mg daily; it appears that she has actually been on 20 mg of Xarelto daily since the per review of [facility]'s records. Other histories updated below, PCP is Dr. Guillen locally. Review of Systems Status of ROS: Reports: 10 or more systems reviewed and unremarkable except as noted in History and below [facility] Medical History Vitamin D deficiency ?E55.9 - Vitamin D deficiency, unspecified (ICD-10) Frailty syndrome in geriatric patient ?R54 - Age-related physical debility (ICD-10) Chronic GI bleeding ?K92.2 - Gastrointestinal hemorrhage, unspecified (ICD-10) Normal cardiac stress test (~01/2023) ALLIE (obstructive sleep apnea) ?G47.33 - Obstructive sleep apnea (adult) (pediatric) (ICD-10) Iron deficiency anemia (2019) ?D50.9 - Iron deficiency anemia, unspecified (ICD-10) Subarachnoid hemorrhage following injury (10/2018) ?S06.6XAA - Traumatic subarachnoid hemorrhage with loss of consciousness status unknown, initial encounter (ICD-10) Ascending aorta dilation ?I77.810 - Thoracic aortic ectasia (ICD-10) Dyspnea on exertion ?R06.09 - Other forms of dyspnea (ICD-10) B12 deficiency ?E53.8 - Deficiency of other specified B group vitamins (ICD-10) TIA (transient ischemic attack) (~2018) ?G45.9 - Transient cerebral ischemic attack, unspecified (ICD-10) Pulmonary hypertension ?I27.20 - Pulmonary hypertension, unspecified (ICD-10) Hearing loss of both ears ?H91.93 - Unspecified hearing loss, bilateral (ICD-10) IBS (irritable bowel syndrome) ?K58.9 - Irritable bowel syndrome without diarrhea (ICD-10) Macular degeneration ?H35.30 - Unspecified macular degeneration (ICD-10) Weakness generalized ?R53.1 - Weakness (ICD-10) Thyroid nodule ?E04.1 - Nontoxic single thyroid nodule (ICD-10) Osteopenia ?M85.80 - Other specified disorders of bone density and structure, unspecified site (ICD-10) Depression ?F32.A - Depression, unspecified (ICD-10) Diastolic heart failure (10/2022) ?I50.30 - Unspecified diastolic (congestive) heart failure (ICD-10) Essential hypertension ?I10 - Essential (primary) hypertension (ICD-10) Cigarette nicotine dependence ?F17.210 - Nicotine dependence, cigarettes, uncomplicated (ICD-10) NYHA class 3 heart failure with preserved ejection fraction ?I50.30 - Unspecified diastolic (congestive) heart failure (ICD-10) Fibromyalgia ?M79.7 - Fibromyalgia (ICD-10) Chronic back pain ?M54.9 - Dorsalgia, unspecified (ICD-10) ?G89.29 - Other chronic pain (ICD-10) COPD (chronic obstructive pulmonary disease) ?J44.9 - Chronic obstructive pulmonary disease, unspecified (ICD-10) Acute on chronic respiratory failure with hypoxia and hypercapnia (12/20/22) ?J96.21 - Acute and chronic respiratory failure with hypoxia (ICD-10) ?J96.22 - Acute and chronic respiratory failure with hypercapnia (ICD-10) Surgical History History of colonoscopy with polypectomy ?Z98.890 - Other specified postprocedural states (ICD-10) ?Z86.010 - Personal history of colonic polyps (ICD-10) 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 Requests DNR/DNI status. Rare ETOH, long time/current smoker (2 cigarettes/day). What is your current living situation?: I presently have a place to live Problems where you live: no known problems Problems where you live details: n/a In the past 12 months, utilities in danger of being shut off: no In past 12 months, lack of transportation kept you from medical appts, meetings, work, or getting things needed for daily living: no In the past 12 mos, have been you worried that your food would run out before you had money to buy more?: never true In the past 12 mos, the food you bought just didn't last and you didn't have money to buy more?: never true Highest level of school completed/degree received: some college, no degree Smoking Status: Current every day smoker What tobacco products do you use: cigarettes Smoking packs per day: 0.5 Smoking cigarettes per day: 10.0 Years smoked: 30 Smoking pack-years: 15.00 Do you use any of these nicotine containing products: None Second hand tobacco smoke exposure: No How often do you have a drink containing alcohol: 2-3 times a week Alcohol type: wine Alcohol type details: 1 glass of wine a night How many standard drinks containing alcohol do you have on a typical day: 1 or 2 How often do you have six or more drinks on one occasion: Never AUDIT-C Alcohol total score: 3 Non-prescribed substance use: denies use Caffeine: Yes How often does anyone, including family, friends and others, physically hurt you : never How often does anyone, including family, friends and others, insult or talk down to you: never How often does anyone, including family, friends and others, threaten you with harm: never How often does anyone, including family, friends and others, scream or curse at you: never Little interest or pleasure in doing things: more than half the days Feeling down, depressed, or hopeless: more than half the days service: No Meds Home Medications and Allergies Home Medications ?Medication ?Instructions ?Recorded ?Confirmed ?Type albuterol sulfate 90 mcg/actuation 2 puff inhalation Q4H PRN 04/24/22 04/02/24 History aerosol inhaler (Ventolin HFA) cyanocobalamin (vitamin B-12) 1,000 mcg IM Q30D 12/18/22 04/02/24 History 1,000 mcg/mL injection kit fexofenadine-pseudoephedrine ER 1 tab PO DAILY PRN 12/18/22 04/02/24 History 180 mg-240 mg tablet,ext.release 24 hr (24HR Allergy-Congestion Relief) fluticasone propionate 50 2 spray intranasal DAILY PRN 12/18/22 04/02/24 History mcg/actuation nasal spray,suspension ipratropium 0.5 mg-albuterol 3 mg 3 ml inhalation QID PRN 12/18/22 04/02/24 History (2.5 mg base)/3 mL nebulization soln acetaminophen 500 mg capsule 1,000 mg PO Q6H PRN 11/28/23 04/02/24 History rosuvastatin 10 mg tablet 10 mg PO HS 11/28/23 04/02/24 History torsemide 20 mg tablet 20 mg PO DAILY 11/28/23 04/02/24 History spironolactone 25 mg tablet 25 mg PO DAILY 03/06/24 04/02/24 History cholecalciferol (vitamin D3) 25 25 mcg PO DAILY 03/14/24 04/02/24 History mcg (1,000 unit) tablet duloxetine 20 mg capsule,delayed 20 mg PO DAILY 03/14/24 04/02/24 History release (Cymbalta) fluticasone fur. 100 mcg-umeclid 1 ea inhalation DAILY 03/14/24 04/02/24 History 62.5 mcg-vilant 25 mcg inhalat.powder (Trelegy Ellipta) metoprolol tartrate 25 mg tablet 12.5 mg PO BID 04/02/24 04/02/24 History potassium chloride 20 mEq 20 meq PO DAILY 04/02/24 04/02/24 History tablet,extended release(part/cryst) (Klor-Con M) rivaroxaban 20 mg tablet (Xarelto) 20 mg PO QPM 04/02/24 04/02/24 History Allergies Allergy/AdvReac Type Severity Reaction Status Date / Time erythromycin base Allergy Intermediate dry heaves Verified 04/02/24 13:06 Penicillins Allergy Intermediate Shortness Verified 04/02/24 13:06 of Breath & Fainting tetanus toxoid, adsorbed Allergy Intermediate Dizziness Verified 04/02/24 13:06 & Fainting codeine AdvReac Mild Rash Verified 04/02/24 13:06 alendronate sodium AdvReac Unknown Gastrointestinal Verified 04/02/24 13:06 [From Fosamax] Upset Exam Narrative: Exam Narrative: GEN: Alert and oriented, sitting comfortably in bed, pale HEENT: EOMIs bilaterally, no scleral icterus,+ conjunctival pallor CV: Sinus tachycardia during initial evaluation with heart rate in the 100s, re-evaluated after 1 unit of blood and heart rate in the 90s, + soft systolic murmur R: Decreased air movement throughout, no tachypnea at rest, wearing supplemental oxygen Ab: Soft nontender, no masses, tolerates exam Ext: wwp, no concerning edema, normal peripheral pulses Skin: No concerning skin lesions or rashes on exposed skin Neuro: No focal deficits Psych: Appropriate Const: Vital Signs, click to edit/add: Vital Signs - 24 hr 04/02/24 13:01 04/02/24 13:12 04/02/24 13:12 Temperature 98.1 F Pulse Rate [Pulse Oximeter] 94 Respiratory Rate 32 H Blood Pressure [Ri ght Upper Arm] 93/67 Pulse Oximetry 100 100 100 Oxygen Delivery Me thod Room Air Nasal Cannula Oxygen Flow Rate 2 Hospitalist - H&P: Result Labs Labs: Short CBC 04/02/24 Range/Units 13:15 WBC 9.54 (4.50-11.00) K/uL Hgb 6.6 L* (12.0-16.0) gm/dL Hct 22.9 L (33.0-51.0) % Plt Count 651 H (140-440) K/uL BMP 04/02/24 13:15 Sodium 135 Potassium 5.1 Chloride 94 L Carbon Dioxide 32 BUN 31 H Creatinine 1.0 Glucose 150 H Calcium 9.3 Cardiac Enzymes 04/02/24 Range/Units 13:15 Troponin I < 0.01 L (0.01-0.04) ng/mL Liver Function 04/02/24 Range/Units 13:15 Total Bilirubin 0.5 (0.1-1.5) mg/dL Direct Bilirubin 0.4 (0.0-0.5) mg/dL AST 25 (12-35) U/L ALT 19 (4-35) U/L Alkaline Phosphatase 110 (40-150) U/L Albumin 4.4 (3.3-5.0) g/dL Assessment and Plan Assessment and plan (1) Dyspnea: Problem comment: - likely 2/2 ABLA, Hgb of 6.6 - pulmonary embolism certainly a ddx, but given that patient has been anticoagulated on Xarelto since surgery, less likely. She has also had improvement in VS since transfusion initiated - continue to monitor symptoms Status: Acute (2) Iron deficiency anemia: Problem comment: - per previous visit with Outboard Motor Tester: regular cbc, ferritin checks. Ferritin goal is over 50. She has chronic GI blood loss presumably 2/2 angioectasias - as an outpatient, previous recommendation has been to infuse iron dextran if ferritin < 50 - Hgb on 04/02: 6.6, likely 2/2 ABLA - transfusion 2U of PRBCs, check hemoccult, EGD ordered. Stopping Xarelto Status: Chronic (3) Weakness: Problem comment: - likely 2/2 ABLA, OT/PT assessments ordered Status: Acute (4) COPD (chronic obstructive pulmonary disease): Problem comment: - chronic/severe, oxygen dependent. No evidence of acute exacerbation at this time - continue home oxygen and medications Status: Acute Plan - per above (transfusion, EGD, monitoring) - SCDs for ppx - son updated at bedside, questions answered
[2024-04-02] MEDS: FUROSEMIDE 10 MG/ML inj 20 MG IV (15:10)
[2024-04-02] MEDS: PANTOPRAZOLE SODIUM 40 MG INJ 80 MG IVP (15:18)
[2024-04-02 15:20] LABS: D Dimer Quantitative* 4.77 ug/ml (0.00-0.50)
[2024-04-02] MEDS: OMEPRAZOLE 20 MG CAPSULE DR 40 MG PO (18:06)
--- NOTE | 2024-04-02 20:02 | PC.NURSE ---
Nursing Care Hours: [id number] Pt this shift calm and cooperative. Anxious with activity d/t SOB. 2L NC required. Ax1 to BSC and bed. C/o chronic pain from fibromyalgia. IV R AC patent, 1 unit blood transfusing. No c/o pain or new symptoms during infusion. Hypotensive apon arrival and tachycardic. C/o increased blurry vision over the last few months as well as ULQ discomfort causing decreased appetite.
[2024-04-02] MEDS: ROSUVASTATIN CALCIUM 10 MG TABLET PO (21:07)
[2024-04-02] MEDS: SODIUM CHLORIDE 0.9 % (FLUSH) 10 ML SYRINGE 5 ML IVF (21:07)
[2024-04-03] VITALS (15 sets, daily range): BP systolic 99–118; BP diastolic 66–84; PULSE 69–101; RESP 16–23; TEMP 36.1–37.1; O2SAT 90–97
[2024-04-03] MEDS: ROPINIROLE HCL 0.25 MG TABLET PO (00:07)
[2024-04-03 06:18] LABS: HCO3 VBG 36 mmol/L (21-28); PCO2 VBG 59 mmHG (40-50); PO2 VBG 64.9 mmHG (25-47); pH VBG 7.391 (7.32-7.43)
[2024-04-03 06:27] LABS: Basophils Absolute Auto 0.02 K/uL (0.00-0.30); Basophils Percent Auto 0.3 % (0.0-3.0); Eosinophils Absolute Auto 0.17 K/uL (0.00-0.50); Eosinophils Percent Auto 2.4 % (0.0-7.0); Hematocrit 29.1 % (33.0-51.0); Hemoglobin* 9.1 gm/dL (12.0-16.0); Immature Granulocytes Abs Auto 0.01 K/uL (0.00-0.30); Immature Granulocytes Pct Auto 0.1 %; Lymphocytes Percent Auto 15.3 % (20-44); Mean Corpuscular HGB Conc 31 gm/dL (32-36); Mean Corpuscular Hemoglobin 30 pg (26-34); Mean Corpuscular Volume 97 fL (80-100); Monocytes Percent Auto 12.1 % (0.0-11.0); Neutrophils Absolute Auto 4.89 K/uL (1.7-7.0); Neutrophils Percent Auto 69.8 % (42.0-72.0); Platelet Count* 439 K/uL (140-440); White Blood Count* 7.01 K/uL (4.50-11.00)
[2024-04-03 06:30] LABS: Slide Review Reflex No
[2024-04-03] MEDS: OMEPRAZOLE 20 MG CAPSULE DR 40 MG PO (06:41)
--- NOTE | 2024-04-03 07:37 | PC.NURSE ---
END OF SHIFT NOTE: PT PLEASANT AND COOPERATIVE. A&Ox3. PT SOB WITH ACTIVITY. [place] [facility] [place]. WALKER PLACED IN ROOM. VSS ON 1L NC; AFEBRILE. PT [place]. NPO SINCE MIDNIGHT. EGD TO BE PERFORMED 04/03. TELE READS NSR. NIGHT UNEVENTFUL. CALL LIGHT WITHIN PT?S REACH.?
[2024-04-03 09:03] LABS: Albumin* 3.5 g/dL (3.3-5.0); Chloride* 95 mmol/L (96-114)
[2024-04-03 09:04] LABS: Potassium* 4.2 mmol/L (3.6-5.1); Sodium* 133 mmol/L (135-149)
[2024-04-03 09:06] LABS: Alanine Aminotransferase* 16 U/L (4-35); Alkaline Phosphatase* 98 U/L (40-150); Anion Gap 1 mEq/L (7-15); Aspartate Amino Transferase* 24 U/L (12-35); Bilirubin Total* 0.9 mg/dL (0.1-1.5); Blood Urea Nitrogen* 24 mg/dL (7-30); Carbon Dioxide* 37 mmol/L (20-32); Creatinine* 0.8 mg/dL (0.5-1.5); Est. Creatinine Clearance* 29.79; Estimated Glomerular Filt Rate 75 ml/min; Glucose* 105 mg/dL (60-115); Total Protein* 6.2 g/dL (6.0-8.3)
[2024-04-03 09:07] LABS: Calcium* 8.3 mg/dL (8.4-10.6)
--- NOTE | 2024-04-03 10:04 | W.ANESCHARGE ---
Anesthesia Charges Start Date/Time Anesthesia Start Date: 04/03/24 Anesthesia Start Time: 10:40 Stop Date/Time Anesthesia Stop Date: 04/03/24 Anesthesia Stop Time: 11:00 Summary Extremes of Age - Over 70 or under 1: MDA
[2024-04-03 10:15] LABS: Ferritin* 46.8 ng/mL (11.1-264.0)
--- NOTE | 2024-04-03 10:59 | W.ANESCHARGE ---
Anesthesia Charges Start Date/Time Anesthesia Start Date: 04/03/24 Anesthesia Start Time: 10:40 Stop Date/Time Anesthesia Stop Date: 04/03/24 Anesthesia Stop Time: 11:00
[2024-04-03] MEDS: TORSEMIDE 20 MG TABLET PO (11:25)
[2024-04-03] MEDS: DULOXETINE HCL 20 MG CAPSULE DR PO (11:25)
[2024-04-03] MEDS: SPIRONOLACTONE 25 MG TABLET PO (11:26)
[2024-04-03] MEDS: SODIUM CHLORIDE 0.9 % (FLUSH) 10 ML SYRINGE 5 ML IVF ×2 (11:28→20:48)
--- NOTE | 2024-04-03 12:30 | P.IMPN_ITS ---
Progress Note: A&P Assessment and plan (1) Dyspnea: Problem details: Acute dyspnea likely due to blood loss. Resolved with blood transfusion. Chronic hypoxic respiratory failure appears stable. Status: Acute (2) Iron deficiency anemia: Problem details: Apparently longstanding history of iron deficiency anemia due to GI blood loss. Records from [place] indicate that in 2020 she had evaluation for iron deficiency anemia and they found angioectasias of the duodenum and cecum which were treated with cautery. She is not aware of obvious ongoing bleeding though she does admit her stools are dark. Continue to monitor for bleeding. Consider outpatient iron therapy Status: Chronic (3) Weakness: Problem details: Acute on chronic likely due to blood loss. Reassess with therapy. If doing well can be discharged to home Status: Acute (4) COPD (chronic obstructive pulmonary disease): Problem details: - chronic/severe, oxygen dependent. No evidence of acute exacerbation at this time - continue home oxygen and medications Status: Acute (5) Paroxysmal atrial fibrillation: Problem details: 1 self-limited episode of atrial fibrillation on 03/18/2024. On Xarelto 20 mg daily for ongoing therapy of this until today. Now in sinus rhythm. Due to active bleeding will discontinue Xarelto pending outpatient follow-up with Cardiology. If resuming Xarelto consider resuming at a renal dose of 15 mg daily or switching to apixaban also possibly renally at 2.5 mg twice daily. Status: Acute (6) Anemia: Problem details: Acute on chronic likely due to acute on chronic GI bleeding from angioectasias. Stop anticoagulation and transfuse as needed. Refer back to [facility] if ongoing bleeding. Replace iron. Status: Acute (7) Status post closed fracture of one hip: Problem details: Now 3 weeks status post hip fracture surgery. Patient reports doing well. Will have Physical therapy evaluate. Probably discharge to home. With her being more mobile and being 3 weeks out from surgery her risk of VTE is much lower. Given her current bleeding discontinue anticoagulation. Status: Acute (8) Diastolic heart failure: Problem details: Diastolic heart failure, early 2022, folowed by [facility] q 3 months, also on jardiance. Resume heart your medicines at reduced doses as we monitor her vital signs during this hospital stay Status: Chronic (9) Cigarette nicotine dependence: Problem details: She has not been smoking for the past 3 weeks. Recommend complete abstinence. Status: Chronic Plan Continue in-hospital for monitoring of bleeding, vital signs, respiratory status. If doing well can probably be discharged to home tomorrow. I recommend discontinuing rivaroxaban and follow-up with her [place] parking meter servicer regarding her paroxysmal AFib and anticoagulation at next available appointment. Time Spent With Patient Total time spent: Total time spent today is 60 minutes, 40 minutes in coordination of care discussing with patient and family and other providers ongoing evaluation management of VTE risk, stroke risk, GI bleeding and anemia. Subjective Date Seen: 04/03/24 Interval history: 79-year-old female with pulmonary hypertension, COPD, oxygen dependent admitted to the hospital with worsening fatigue and dyspnea for the last few days. Patient was hospitalized here on March 14 2024 with a right hip femoral neck fracture. She underwent bipolar arthroplasty performed by Dr. Giraldo. There were no operative complications. Postoperatively she did have an episode of self-limited atrial fibrillation on March 18. It occurred and resolved all in the same day. Decision was made to treat her with rivaroxaban 20 mg daily for both her episode of paroxysmal AFib as well as VTE prophylaxis for her hip fracture surgery. She was discharged to [facility] for rehab. Discharge from [place] yesterday to home in [place]. Because of her dyspnea she return to the emergency department. Evaluation in our emergency department included a hemoglobin of 6.6 and no obvious findings of new cardiopulmonary disease. She was transfused 2 units of blood and this morning her hemoglobin is 9.1 and she reports her breathing is back to normal. Rivaroxaban was held. This morning she had EGD which showed no significant abnormalities and no sti gmata of bleeding. She has not had any other symptoms of illness other than her dyspnea. Specifically denies fever, cough, cold, chest pain, abdominal pain, nausea or vomiting. Exam Narrative: Exam Narrative: She is alert and appears in no distress. She is hard of hearing. She appears breathing comfortably on oxygen at 2 L per nasal cannula. Respirations with diminished breath sounds throughout all lung plascencia with no wheezing. Fair air exchange all lung plascencia. Cardiovascular: S1, S2, regular rate and rhythm. 2/6 systolic ejection murmur. Abdomen: Bowel sounds are present. Abdomen is soft with minimal diffuse tenderness. Extremities without edema. Const: Vital Signs, click to edit/add: Vital Signs - 24 hr 04/02/24 13:01 04/02/24 13:12 04/02/24 13:12 Temperature 98.1 F Pulse Rate Pulse Rate [Pulse Oximeter] 94 Pulse Rate [Right Pulse Oximeter] Respiratory Rate 32 H Blood Pressure Blood Pressure [Ri ght Arm] Blood Pressure [Ri ght Upper Arm] 93/67 Pulse Oximetry 100 100 100 Oxygen Delivery Me thod Room Air Nasal Cannula Oxygen Flow Rate 2 04/02/24 13:24 04/02/24 15:45 04/02/24 15:45 Temperature 97 F L Pulse Rate Pulse Rate [Pulse Oximeter] Pulse Rate [Right Pulse Oximeter] 103 H Respiratory Rate 18 18 Blood Pressure Blood Pressure [Ri ght Arm] 74/62 L Blood Pressure [Ri ght Upper Arm] Pulse Oximetry 98 100 99 Oxygen Delivery Me thod Nasal Cannula Nasal Cannula Nasal Cannula Oxygen Flow Rate 2 2 2 04/02/24 16:09 04/02/24 16:27 04/02/24 17:12 Temperature 97 F L 98.6 F 98.6 F Pulse Rate 103 H 111 H 111 H Pulse Rate [Pulse Oximeter] Pulse Rate [Right Pulse Oximeter] Respiratory Rate 18 18 18 Blood Pressure 103/67 93/68 103/77 Blood Pressure [Ri ght Arm] Blood Pressure [Ri ght Upper Arm] Pulse Oximetry 99 99 97 Oxygen Delivery Me thod Oxygen Flow Rate 04/02/24 18:12 04/02/24 20:00 04/02/24 21:01 Temperature 98.4 F 98.4 F 98.0 F Pulse Rate 88 98 Pulse Rate [Pulse Oximeter] Pulse Rate [Right Pulse Oximeter] 88 Respiratory Rate 20 20 20 Blood Pressure 95/48 L 103/67 Blood Pressure [Ri ght Arm] 95/48 L Blood Pressure [Ri ght Upper Arm] Pulse Oximetry 99 99 99 Oxygen Delivery Me thod Nasal Cannula Oxygen Flow Rate 1 04/02/24 21:18 04/02/24 21:19 04/02/24 23:01 Temperature 97.8 F 97.8 F 97.8 F Pulse Rate 86 86 74 Pulse Rate [Pulse Oximeter] Pulse Rate [Right Pulse Oximeter] Respiratory Rate 20 20 18 Blood Pressure 99/67 113/74 107/78 Blood Pressure [Ri ght Arm] Blood Pressure [Ri ght Upper Arm] Pulse Oximetry 99 98 99 Oxygen Delivery Me thod Oxygen Flow Rate 04/03/24 00:09 04/03/24 00:10 04/03/24 00:10 Temperature Pulse Rate 86 Pulse Rate [Pulse Oximeter] Pulse Rate [Right Pulse Oximeter] 86 Respiratory Rate 16 16 16 Blood Pressure 118/73 Blood Pressure [Ri ght Arm] Blood Pressure [Ri ght Upper Arm] Pulse Oximetry 97 97 Oxygen Delivery Me thod Nasal Cannula Oxygen Flow Rate 1 04/03/24 00:10 04/03/24 02:25 04/03/24 03:32 Temperature 97.0 F L 97.6 F Pulse Rate 87 Pulse Rate [Pulse Oximeter] Pulse Rate [Right Pulse Oximeter] 86 101 H Respiratory Rate 16 18 Blood Pressure Blood Pressure [Ri ght Arm] 118/73 103/76 Blood Pressure [Ri ght Upper Arm] Pulse Oximetry 97 93 Oxygen Delivery Me thod Nasal Cannula Nasal Cannula Oxygen Flow Rate 1 1 04/03/24 07:26 04/03/24 07:44 04/03/24 07:44 Temperature 97.5 F L Pulse Rate 87 Pulse Rate [Pulse Oximeter] Pulse Rate [Right Pulse Oximeter] 89 89 Respiratory Rate 18 18 Blood Pressure Blood Pressure [Ri ght Arm] 112/83 Blood Pressure [Ri ght Upper Arm] Pulse Oximetry 96 Oxygen Delivery Me thod Nasal Cannula Oxygen Flow Rate 1 04/03/24 07:44 04/03/24 11:31 Temperature 97.8 F Pulse Rate Pulse Rate [Pulse Oximeter] Pulse Rate [Right Pulse Oximeter] 86 Respiratory Rate 18 16 Blood Pressure Blood Pressure [Ri ght Arm] 106/84 Blood Pressure [Ri ght Upper Arm] Pulse Oximetry 96 93 Oxygen Delivery Me thod Nasal Cannula Nasal Cannula Oxygen Flow Rate 1 1 Documenting provider has reviewed patient's vital signs: yes Labs Labs: Laboratory Results - last 24 hr 04/02/24 04/02/24 04/02/24 13:12 13:15 13:18 WBC 9.54 RBC 2.21 L Hgb 6.6 L* Hct 22.9 L MCV 104 H MCH 30 MCHC [address] 18.3 H Plt Count 651 H Neut % (Auto) 80.8 H Lymph % (Auto) 10.0 L [place] % (Auto) 7.9 Eos % (Auto) 0.7 Baso % (Auto) 0.2 Neut # (Auto) 7.70 H Lymph # (Auto) 1.00 [place] # (Auto) 0.80 Eos # (Auto) 0.07 Baso # (Auto) 0.02 Abs Immat Gran (auto) 0.04 Imm/Tot Granulo (auto) 0.4 D-Dimer Quant (PE/DVT) 4.77 H VBG pH 7.430 VBG pCO2 52 H VBG pO2 < 30.1 VBG HCO3 34 H Sodium 135 Potassium 5.1 Chloride 94 L Carbon Dioxide 32 Anion Gap 9 BUN 31 H Creatinine 1.0 Estimated Creat Clear 30.38 Estimated GFR 57 Glucose 150 H Lactate 2.9 H Calcium 9.3 Magnesium 2.5 Ferritin Total Bilirubin 0.5 Direct Bilirubin 0.4 AST 25 ALT 19 Alkaline Phosphatase 110 Troponin I < 0.01 L C-Reactive Protein 0.6 NT-Pro-B Natriuret Pep 1030 Total Protein 7.2 Albumin 4.4 SARS-CoV-2 (PCR) Negative SARS-CoV-2 Influenza Type A (PCR) Negative PCR FLU A Influenza Type B (PCR) Negative PCR FLU B RSV (PCR) Negative PCR RSV POC Troponin I 0.01 Blood Type A Negative Antibody Screen NEGATIVE Crossmatch (AHG) See Detail 04/03/24 06:00 WBC 7.01 RBC 3.00 L Hgb 9.1 L Hct 29.1 L MCV 97 MCH 30 MCHC [address] 17.0 H Plt Count 439 Neut % (Auto) 69.8 Lymph % (Auto) 15.3 L [place] % (Auto) 12.1 H Eos % (Auto) 2.4 Baso % (Auto) 0.3 Neut # (Auto) 4.89 Lymph # (Auto) 1.10 [place] # (Auto) 0.80 Eos # (Auto) 0.17 Baso # (Auto) 0.02 Abs Immat Gran (auto) 0.01 Imm/Tot Granulo (auto) 0.1 D-Dimer Quant (PE/DVT) VBG pH 7.391 VBG pCO2 59 H VBG pO2 64.9 H VBG HCO3 36 H Sodium 133 L Potassium 4.2 Chloride 95 L Carbon Dioxide 37 H Anion Gap 1 L BUN 24 Creatinine 0.8 Estimated Creat Clear 29.79 Estimated GFR 75 Glucose 105 Lactate Calcium 8.3 L Magnesium Ferritin 46.8 Total Bilirubin 0.9 Direct Bilirubin AST 24 ALT 16 Alkaline Phosphatase 98 Troponin I C-Reactive Protein NT-Pro-B Natriuret Pep Total Protein 6.2 Albumin 3.5 SARS-CoV-2 (PCR) Influenza Type A (PCR) Influenza Type B (PCR) RSV (PCR) POC Troponin I Blood Type Antibody Screen Crossmatch (AHG)
--- NOTE | 2024-04-03 13:08 | REH.OT ---
Patient greeted at bedside. Reports feeling unwell, quite nauseous. Tachycardic when sitting EOB earlier this afternoon. Will follow up tomorrow for OT ace.
--- NOTE | 2024-04-03 13:20 | REH.PT ---
PT Eval & Treat Orders received, Chart reviewed. Observed pt amb short distance with 2ww and transfer in/out of bed this am with supervision. Attempted to see pt for Evaluation this pm but she became tachycardic (125BPM) and nauseated seated at EOB. Pt declined evaluation and requested to lie down. Will re-attempt evaluation tomorrow.
--- NOTE | 2024-04-03 13:41 | PC.SOCIAL ---
Discharge planning: Pt was feeling ill today while in the hospital which made it a challenge for PT/OT to assess her. 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 Nieves stated that pt planned to used [facility] through [facility] for outpatient therapy and did not want home health. Social work to follow-up as needed.
--- NOTE | 2024-04-03 13:59 | NUTR.NU ---
RDN attempted to visit with patient today x3, however she is feeling ill and declining visits at this time. RDN to assess patient at later date.
--- NOTE | 2024-04-03 14:27 | PC.NURSE ---
End of Shift: Patient pleasant and cooperative, alert and oriented. Patient has been vitally stable, tachy at times, MD aware, BS WNL, IV SL and intact. Patient denies any pain. Patient 1 assist/walker to commode, due to fatigue and SOB. Patient on 1 L oxygen by [place] with sats in the low to mid 90's. Patient tolerating regular diet, urinating well, but no BM this shift. Patient did report chest feeling odd, not pain or pressure, but different. EKG ordered. Tele=NSR.
[2024-04-03 14:36] LABS: Basophils Absolute Auto 0.02 K/uL (0.00-0.30); Basophils Percent Auto 0.3 % (0.0-3.0); Eosinophils Absolute Auto 0.13 K/uL (0.00-0.50); Eosinophils Percent Auto 1.7 % (0.0-7.0); Hematocrit 30.7 % (33.0-51.0); Hemoglobin* 9.5 gm/dL (12.0-16.0); Immature Granulocytes Abs Auto 0.08 K/uL (0.00-0.30); Lymphocytes Percent Auto 10.6 % (20-44); Mean Corpuscular HGB Conc 31 gm/dL (32-36); Mean Corpuscular Hemoglobin 31 pg (26-34); Mean Corpuscular Volume 99 fL (80-100); Monocytes Percent Auto 10.1 % (0.0-11.0); Neutrophils Percent Auto 76.3 % (42.0-72.0); Platelet Count* 458 K/uL (140-440); RDW Coefficient of Variation % 17.1 % (11.5-15.5); Red Blood Count 3.11 m/uL (4.00-5.20)
[2024-04-03 14:41] LABS: Slide Review Reflex No
[2024-04-03 15:19] LABS: Troponin I* < 0.01 ng/mL (0.01-0.04)
--- NOTE | 2024-04-03 15:49 | CRLHL7_ITS ---
For Patients: As a result of the Century Cures Act, medical imaging exams and procedure reports are released immediately into your electronic medical record. You may view this report before your referring provider. If you have questions, please contact your health care provider. INDICATION: . Dyspnea, POST OP HIPFX,HX OF COPD TECHNIQUE: CT chest PE was acquired with 95 cc Isovue 370 IV contrast. COMPARISON: None FINDINGS: Pulmonary Arteries: No CT evidence of pulmonary thromboembolic disease. No pulmonary hypertension or right ventricular strain. Heart and Mediastinum: Atrophic thyroid. No axillary or supraclavicular lymphadenopathy. No mediastinal, hilar or retrocrural lymphadenopathy. Normal heart size. Normal caliber aorta. Aortic ulcer like projection at the arch. Atherosclerotic calcifications of the aorta and its branches. Coronary artery calcifications. Mitral annular calcifications. Lungs and Airways: Upper lobe predominant centrilobular emphysema. Scattered areas right lower lobe predominant endobronchial mucous plugging. No mass or consolidation. Scattered sub 6 millimeter indeterminate pulmonary nodules. No central endoluminal lesion. Pleura: The pleural spaces are normal. Abdomen: Fenestrated aortic graft extending inferiorly off the field of view. Bones and soft tissues: Age-indeterminate, likely chronic multilevel vertebral body compression fractures at T4, T5, T7, T9, and T12. No retropulsed fragments. Recommend correlation with localized physical exam to assess for point tenderness and chronicity. IMPRESSION: 1. No CT evidence of pulmonary thromboembolic disease. 2. No intrathoracic mass or consolidation. Emphysema. 3. A few scattered sub 6 millimeter indeterminate pulmonary nodules. Consider optional [address] to document stability and assess underlying malignant potential. 4. Right lower lobe endobronchial mucous plug. 5. Age-indeterminate, likely chronic multilevel vertebral body compression fractures at T4, T5, T7, T9, and T12. No retropulsed fragments. Recommend correlation with localized physical exam to assess for point tenderness and chronicity. Please note that all CT scans at this facility use dose modulation, iterative reconstruction, and/or weight-based dosing when appropriate to reduce radiation dose to as low as reasonably achievable. Dictated by Rod Hauser MD @ 04/03/2024 5:00:20 PM (Electronically Signed)
[2024-04-03 15:51] LABS: D Dimer Quantitative* 3.22 ug/ml (0.00-0.50)
--- NOTE | 2024-04-03 18:21 | PC.NURSE ---
(Shift 15-19) Pt alert and oriented. Pt pleasant and cooperative. Pt had no complaints of pain. Pt up with assist of one with gait belt and walker. Pt taken down for a PE study around 1600.
[2024-04-03] MEDS: METOPROLOL TARTRATE 25 MG TABLET 12.5 MG PO (20:48)
[2024-04-03] MEDS: ROSUVASTATIN CALCIUM 10 MG TABLET PO (20:48)
[2024-04-04] VITALS (8 sets, daily range): BP systolic 94–119; BP diastolic 58–96; PULSE 71–93; RESP 16–22; TEMP 36.7–36.8; O2SAT 92–95
--- NOTE | 2024-04-04 06:19 | PC.NURSE ---
End of shift [id number]: A&O pleasant and cooperative. VSS w/ sats >88% on 1L of oxygen. Denies pain. SBA to commode. SOB w/ exertion. Using call light appropriately.
[2024-04-04 06:48] LABS: Basophils Absolute Auto 0.01 K/uL (0.00-0.30); Basophils Percent Auto 0.1 % (0.0-3.0); Eosinophils Absolute Auto 0.23 K/uL (0.00-0.50); Eosinophils Percent Auto 3.2 % (0.0-7.0); Hematocrit 30.4 % (33.0-51.0); Hemoglobin* 9.2 gm/dL (12.0-16.0); Immature Granulocytes Abs Auto 0.02 K/uL (0.00-0.30); Immature Granulocytes Pct Auto 0.3 %; Lymphocytes Percent Auto 12.6 % (20-44); Mean Corpuscular HGB Conc 30 gm/dL (32-36); Mean Corpuscular Hemoglobin 30 pg (26-34); Mean Corpuscular Volume 99 fL (80-100); Monocytes Percent Auto 9.9 % (0.0-11.0); Neutrophils Percent Auto 73.9 % (42.0-72.0); Platelet Count* 402 K/uL (140-440); RDW Coefficient of Variation % 16.7 % (11.5-15.5); Red Blood Count 3.08 m/uL (4.00-5.20); White Blood Count* 7.08 K/uL (4.50-11.00)
[2024-04-04 06:50] LABS: Slide Review Reflex No
[2024-04-04 07:08] LABS: Chloride* 98 mmol/L (96-114); Potassium* 3.8 mmol/L (3.6-5.1); Sodium* 135 mmol/L (135-149)
[2024-04-04 07:11] LABS: Anion Gap 1 mEq/L (7-15); Blood Urea Nitrogen* 22 mg/dL (7-30); Carbon Dioxide* 36 mmol/L (20-32); Creatinine* 0.8 mg/dL (0.5-1.5); Est. Creatinine Clearance* 29.89; Estimated Glomerular Filt Rate 75 ml/min; Glucose* 95 mg/dL (60-115)
[2024-04-04 07:12] LABS: Calcium* 8.5 mg/dL (8.4-10.6)
[2024-04-04 07:58] LABS: Troponin I* < 0.01 ng/mL (0.01-0.04)
[2024-04-04] MEDS: METOPROLOL TARTRATE 25 MG TABLET 12.5 MG PO ×2 (08:37→20:32)
[2024-04-04] MEDS: OMEPRAZOLE 20 MG CAPSULE DR 40 MG PO ×2 (08:37→08:39)
[2024-04-04] MEDS: POTASSIUM CHLORIDE 10 MEQ CAPSULE ER PO (08:38)
[2024-04-04] MEDS: DULOXETINE HCL 20 MG CAPSULE DR PO (08:39)
[2024-04-04] MEDS: TORSEMIDE 20 MG TABLET 10 MG PO (08:40)
[2024-04-04] MEDS: SPIRONOLACTONE 25 MG TABLET 12.5 MG PO (08:41)
[2024-04-04 10:39] LABS: Fecal Occult Blood* Positive (Negative)
[2024-04-04] MEDS: SODIUM CHLORIDE 0.9 % (FLUSH) 10 ML SYRINGE 5 ML IVF ×2 (13:03→20:33)
--- NOTE | 2024-04-04 16:41 | P.IMPN_ITS ---
Progress Note: A&P Assessment and plan (1) Dyspnea: Problem details: Acute dyspnea likely due to blood loss. Resolved with blood transfusion. Chronic hypoxic respiratory failure appears stable. Status: Acute (2) Iron deficiency anemia: Problem details: Apparently longstanding history of iron deficiency anemia due to GI blood loss. Records from [place] indicate that in 2020 she had evaluation for iron deficiency anemia and they found angioectasias of the duodenum and cecum which were treated with cautery. She is not aware of obvious ongoing bleeding though she does admit her stools are dark. Continue to monitor for bleeding. Consider outpatient iron therapy Status: Chronic (3) Weakness: Problem details: Acute on chronic likely due to blood loss. Reassess with therapy. If doing well can be discharged to home Status: Acute (4) COPD (chronic obstructive pulmonary disease): Problem details: - chronic/severe, oxygen dependent. No evidence of acute exacerbation at this time - continue home oxygen and medications Status: Acute (5) Paroxysmal atrial fibrillation: Problem details: 1 self-limited episode of atrial fibrillation on 03/18/2024. On Xarelto 20 mg daily for ongoing therapy of this until today. Now in sinus rhythm. Due to active bleeding will discontinue Xarelto pending outpatient follow-up with Cardiology. If resuming Xarelto consider resuming at a renal dose of 15 mg daily or switching to apixaban also possibly renally at 2.5 mg twice daily. Status: Acute (6) Anemia: Problem details: Acute on chronic likely due to acute on chronic GI bleeding from angioectasias. Stop anticoagulation and transfuse as needed. Refer back to [facility] if ongoing bleeding. Replace iron. Status: Acute (7) Status post closed fracture of one hip: Problem details: Now 3 weeks status post hip fracture surgery. Patient reports doing well. Will have Physical therapy evaluate. Probably discharge to home. With her being more mobile and being 3 weeks out from surgery her risk of VTE is much lower. Given her current bleeding discontinue anticoagulation. Status: Acute (8) Diastolic heart failure: Problem details: Diastolic heart failure, early 2022, folowed by [facility] q 3 months, also on jardiance. Resume heart your medicines at reduced doses as we monitor her vital signs during this hospital stay Status: Chronic (9) Cigarette nicotine dependence: Problem details: She has not been smoking for the past 3 weeks. Recommend complete abstinence. Status: Chronic Plan 1. Reviewed impression and recommendations with patient and her son 2. Answered their questions 3. They are agreeable with above stated plans and recommendations Time Spent With Patient Total time spent: 40 minutes Subjective Date Seen: 04/04/24 Interval history: Hospital day 3. 79-year-old female with pulmonary hypertension, COPD, oxygen dependent admitted to the hospital with worsening fatigue and dyspnea for the last few days. Patient was hospitalized here on March 14 2024 with a right hip femoral neck fracture. She underwent bipolar arthroplasty performed by Dr. Giraldo. There were no operative complications. Postoperatively she did have an episode of self-limited atrial fibrillation on March 18. It occurred and resolved all in the same day. Decision was made to treat her with rivaroxaban 20 mg daily for both her episode of paroxysmal AFib as well as VTE prophylaxis for her hip fracture surgery. She was discharged to [facility] for rehab. Discharge from [place] yesterday to home in [place]. Because of her dyspnea she return to the emergency department. Evaluation in our emergency department included a hemoglobin of 6.6 and no obvious findings of new cardiopulmonary disease. She was transfused 2 units of blood and this morning her hemoglobin is 9.1 and she reports her breathing is back to normal. Rivaroxaban was held. This morning she had EGD which showed no significant abnormalities and no stigmata of bleeding. She has not had any other symptoms of illness other than her dyspnea. Specifically denies fever, cough, cold, chest pain, abdominal pain, nausea or vomiting. 04/04/2024: Describes less dyspnea. Back to baseline level of dyspnea particularly with exertion. Acknowledges baseline pursed lip breathing. Appetite improved. Exam Narrative: Exam Narrative: Examined her in her hospital room. Appears comfortable. Baseline purse lip breathing. 3-4 word dyspnea. Vision and hearing are adequate. She can handle her own cell phone to call her son, whom I speak with as I am v isiting with the patient in her hospital room. Cachectic appearance. Lungs clear to auscultation without wheezing or rhonchi or rales. Prolonged expiratory phase. Heart tones with regular rhythm. Abdomen is thin with active bowel sounds and soft. Extremities without edema. Hemoccult-positive stools. Const: Vital Signs, click to edit/add: Vital Signs - 24 hr 04/03/24 18:14 04/03/24 19:18 04/03/24 22:28 Temperature 98.2 F 98.7 F Pulse Rate 69 Pulse Rate [Right Pulse Oximeter] 98 92 Respiratory Rate 23 18 Blood Pressure [Ri ght Arm] 107/74 99/66 Pulse Oximetry 90 91 Oxygen Delivery Me thod Nasal Cannula Oxygen Flow Rate 1 Fraction of Inspir ed Oxygen 04/03/24 22:44 04/03/24 22:46 04/04/24 03:13 Temperature 98.4 F 98.3 F Pulse Rate Pulse Rate [Right Pulse Oximeter] 73 73 Respiratory Rate 16 16 18 Blood Pressure [Ri ght Arm] 102/77 100/67 Pulse Oximetry 95 95 93 Oxygen Delivery Me thod Nasal Cannula Nasal Cannula Nasal Cannula Oxygen Flow Rate 1 1 Fraction of Inspir ed Oxygen 2 04/04/24 07:00 04/04/24 07:00 04/04/24 07:00 Temperature 98.0 F Pulse Rate Pulse Rate [Right Pulse Oximeter] 91 91 Respiratory Rate 20 20 20 Blood Pressure [Ri ght Arm] 117/96 H Pulse Oximetry 92 92 Oxygen Delivery Me thod Nasal Cannula Nasal Cannula Oxygen Flow Rate 1 1 Fraction of Inspir ed Oxygen 2 04/04/24 07:00 04/04/24 11:00 04/04/24 15:00 Temperature 98.1 F Pulse Rate 71 Pulse Rate [Right Pulse Oximeter] 71 71 Respiratory Rate 22 22 Blood Pressure [Ri ght Arm] 108/76 Pulse Oximetry 95 Oxygen Delivery Me thod Nasal Cannula Oxygen Flow Rate 1 Fraction of Inspir ed Oxygen 04/04/24 15:00 04/04/24 15:00 Temperature 98.3 F Pulse Rate Pulse Rate [Right Pulse Oximeter] 83 Respiratory Rate 22 22 Blood Pressure [Ri ght Arm] 94/70 Pulse Oximetry 95 93 Oxygen Delivery Me thod Nasal Cannula Nasal Cannula Oxygen Flow Rate 1 1 Fraction of Inspir ed Oxygen 2 Labs Labs: Laboratory Results - last 24 hr 04/04/24 04/04/24 06:27 10:15 WBC 7.08 RBC 3.08 L Hgb 9.2 L Hct 30.4 L MCV 99 MCH 30 MCHC [address] Co[address] of [address] 16.7 H Plt Count 402 Neut % (Auto) 73.9 H Lymph % (Auto) 12.6 L [place] % (Auto) 9.9 Eos % (Auto) 3.2 Baso % (Auto) 0.1 Neut # (Auto) 5.20 Lymph # (Auto) 0.90 [place] # (Auto) 0.70 Eos # (Auto) 0.23 Baso # (Auto) 0.01 Abs Immat Gran (auto) 0.02 Imm/Tot Granulo (auto) 0.3 Sodium 135 Potassium 3.8 Chloride 98 Carbon Dioxide 36 H Anion Gap 1 L BUN 22 Creatinine 0.8 Estimated Creat Clear 29.89 Estimated GFR 75 Glucose 95 Calcium 8.5 Troponin I < 0.01 L Stool Occult Blood Positive A
--- NOTE | 2024-04-04 17:45 | PC.NURSE ---
Patient VSS. Alert and oriented. On 1 L of oxygen via nasal cannula. Able to ambulate with walker, gait belt and 1A. Patient states they are feeling stronger today.
[2024-04-04] MEDS: ROSUVASTATIN CALCIUM 10 MG TABLET PO (20:32)
[2024-04-05] VITALS (10 sets, daily range): BP systolic 97–129; BP diastolic 70–91; PULSE 63–90; RESP 16–20; TEMP 36.7–36.9; O2SAT 95–98
[2024-04-05] MEDS: ACETAMINOPHEN 325 MG TABLET 975 MG PO (00:10)
--- NOTE | 2024-04-05 06:57 | PC.NURSE ---
End of shift [id number]: A&O pleasant and cooperative. VSS w/ sats >88% on 1L of oxygen. Denies pain. SBA to bathroom. SOB w/ exertion. Using call light appropriately.??
[2024-04-05 07:07] LABS: Hemoglobin* 8.5 gm/dL (12.0-16.0)
[2024-04-05] MEDS: POTASSIUM CHLORIDE 10 MEQ CAPSULE ER PO (10:13)
[2024-04-05] MEDS: DULOXETINE HCL 20 MG CAPSULE DR PO (10:13)
[2024-04-05] MEDS: TORSEMIDE 20 MG TABLET 10 MG PO (10:13)
[2024-04-05] MEDS: METOPROLOL TARTRATE 25 MG TABLET 12.5 MG PO ×2 (10:13→20:53)
[2024-04-05] MEDS: SODIUM CHLORIDE 0.9 % (FLUSH) 10 ML SYRINGE 5 ML IVF ×2 (10:14→20:54)
[2024-04-05] MEDS: SPIRONOLACTONE 25 MG TABLET 12.5 MG PO (10:15)
[2024-04-05 13:18] LABS: HCO3 VBG 36 mmol/L (21-28); PCO2 VBG 60 mmHG (40-50); PO2 VBG 37.5 mmHG (25-47)
[2024-04-05 13:25] LABS: Hemoglobin* 9.8 gm/dL (12.0-16.0)
--- NOTE | 2024-04-05 16:55 | PM.IMPN1 ---
Progress Note: A&P Assessment and plan (1) Dyspnea: Problem details: Acute dyspnea likely due to blood loss. Resolved with blood transfusion. Chronic hypoxic respiratory failure appears stable. Status: Acute (2) Iron deficiency anemia: Problem details: Apparently longstanding history of iron deficiency anemia due to GI blood loss. Records from [place] indicate that in 2020 she had evaluation for iron deficiency anemia and they found angioectasias of the duodenum and cecum which were treated with cautery. She is not aware of obvious ongoing bleeding though she does admit her stools are dark. Continue to monitor for bleeding. Consider outpatient iron therapy. 04/05/2020 for morning blood draw suggested hemoglobin drop down to 8.5. We repeated at noon it was 9.8. Continue to monitor. Consider repeat EGD and colonoscopy if she continues to drift downward. Consider outpatient assessment if continues to be stable. Status: Chronic (3) Weakness: Problem details: Acute on chronic likely due to blood loss. Reassess with therapy. If doing well can be discharged to home Status: Acute (4) COPD (chronic obstructive pulmonary disease): Problem details: - chronic/severe, oxygen dependent. No evidence of acute exacerbation at this time - continue home oxygen and medications Status: Acute (5) Paroxysmal atrial fibrillation: Problem details: 1 self-limited episode of atrial fibrillation on 03/18/2024. On Xarelto 20 mg daily for ongoing therapy of this until today. Now in sinus rhythm. Due to active bleeding will discontinue Xarelto pending outpatient follow-up with Cardiology. If resuming Xarelto consider resuming at a renal dose of 15 mg daily or switching to apixaban also possibly renally at 2.5 mg twice daily. Status: Acute (6) Anemia: Problem details: Acute on chronic likely due to acute on chronic GI bleeding from angioectasias. Stop anticoagulation and transfuse as needed. Refer back to [facility] if ongoing bleeding. Replace iron. Status: Acute (7) Status post closed fracture of one hip: Problem details: Now 3 weeks status post hip fracture surgery. Patient reports doing well. Will have Physical therapy evaluate. Probably discharge to home. With her being more mobile and being 3 weeks out from surgery her risk of VTE is much lower. Given her current bleeding discontinue anticoagulation. Status: Acute (8) Diastolic heart failure: Problem details: Diastolic heart failure, early 2022, folowed by [place] [facility] q 3 months, also on jardiance. Resume heart your medicines at reduced doses as we monitor her vital signs during this hospital stay Status: Chronic (9) Cigarette nicotine dependence: Problem details: She has not been smoking for the past 3 weeks. Recommend complete abstinence. Status: Chronic Plan 1. Reviewed impression with patient. Reviewed plans and recommendations. She is agreeable. Time Spent With Patient Total time spent: 40 minutes Subjective Date Seen: 04/05/24 Interval history: Hospital day 4. 79-year-old female with pulmonary hypertension, COPD, oxygen dependent admitted to the hospital with worsening fatigue and dyspnea for the last few days. Patient was hospitalized here on March 14 2024 with a right hip femoral neck fracture. She underwent bipolar arthroplasty performed by Dr. Giraldo. There were no operative complications. Postoperatively she did have an episode of self-limited atrial fibrillation on March 18. It occurred and resolved all in the same day. Decision was made to treat her with rivaroxaban 20 mg daily for both her episode of paroxysmal AFib as well as VTE prophylaxis for her hip fracture surgery. She was discharged to [facility] for rehab. Discharge from [place] yesterday to home in [place]. Because of her dyspnea she return to the emergency department. Evaluation in our emergency department included a hemoglobin of 6.6 and no obvious findings of new cardiopulmonary disease. She was transfused 2 units of blood and this morning her hemoglobin is 9.1 and she reports her breathing is back to normal. Rivaroxaban was held. This morning she had EGD which showed no significant abnormalities and no stigmata of bleeding. She has not had any other symptoms of illness other than her dyspnea. Specifically denies fever, cough, cold, chest pain, abdominal pain, nausea or vomiting. 04/04/2024: Describes less dyspnea. Back to baseline level of dyspnea particularly with exertion. Acknowledges baseline pursed lip breathing. Appetite improved. 04/05/2024: She states she woke up with dyspnea today. Nevertheless she states that seems to him approved throughout the day and she is closer to her baseline. Denies any active apparent bleeding of any sort including melena or hematochezia or hematemesis. Exam Narrative: Exam Narrative: I examine her in her hospital room. Appears comfortable. Baseline purse lip breathing at rest. Oxygen supplementation is continuous at 1 liter/minute. Alert and oriented to self, place, time, and situation. Seemingly slow to respond to certain questions. Friendly and cooperative. Cachectic appearance. Still has 3-4 word dyspnea. Lungs are clear without wheezing, rhonchi, rales. Heart tones with regular rhythm. Abdomen with active bowel sounds, soft, nontender. Transfers and ambulates with use of walker. Const: Vital Signs, click to edit/add: Vital Signs - 24 hr 04/04/24 19:27 04/04/24 22:31 04/04/24 23:00 Temperature 98.1 F Pulse Rate 80 Pulse Rate [Right Pulse Oximeter] 93 78 Respiratory Rate 16 16 Blood Pressure [Ri ght Arm] 108/83 119/58 L Pulse Oximetry 92 95 Oxygen Delivery Me thod Nasal Cannula Nasal Cannula Oxygen Flow Rate 1 1 04/04/24 23:02 04/05/24 02:41 04/05/24 07:00 Temperature Pulse Rate Pulse Rate [Right Pulse Oximeter] 65 Respiratory Rate 16 16 16 Blood Pressure [Ri ght Arm] 116/76 Pulse Oximetry 95 95 95 Oxygen Delivery Me thod Room Air Nasal Cannula Nasal Cannula Oxygen Flow Rate 1 1 1 04/05/24 07:00 04/05/24 07:00 04/05/24 07:00 Temperature 98.3 F Pulse Rate 67 Pulse Rate [Right Pulse Oximeter] 65 65 Respiratory Rate 18 18 Blood Pressure [Ri ght Arm] 129/91 H Pulse Oximetry 96 Oxygen Delivery Me thod Nasal Cannula Oxygen Flow Rate 1 Labs Labs: Laboratory Results - last 24 hr 04/02/24 04/05/24 04/05/24 13:15 06:45 13:12 Hgb 8.5 L 9.8 L VBG pH 7.390 VBG pCO2 60 H VBG pO2 37.5 VBG HCO3 36 H Blood Type A Negative Antibody Screen NEGATIVE Crossmatch (AHG) See Detail See Detail
--- NOTE | 2024-04-05 18:34 | PC.NURSE ---
Pt up in the room with SBA, gait belt and walker. Demonstrates a steady gait. Does get SOB with exertion. Remains on 1 L of oxygen today with oxygen saturations in the mid 90's. Pt states that she is normally on 2 L of O2 at home chronically. Pt had one bowel movement this shift that was brown and formed. Pt has small open area on her coccyx that is covered with a Mepilex dressing.
[2024-04-05] MEDS: ROSUVASTATIN CALCIUM 10 MG TABLET PO (20:53)
[2024-04-06 03:57] VITALS: BP 132/87; PULSE 66; RESP 22; TEMP 36.8; O2SAT 98
--- NOTE | 2024-04-06 06:29 | PC.NURSE ---
End of shift [id number]: A&O pleasant and cooperative. VSS. Chronically on 1L of oxygen. Denies pain. SBA to bathroom. SOB w/ exertion. Using call light appropriately.??
[2024-04-06 07:50] VITALS: PULSE 65
[2024-04-06] MEDS: METOPROLOL TARTRATE 25 MG TABLET 12.5 MG PO (09:08)
[2024-04-06] MEDS: POTASSIUM CHLORIDE 10 MEQ CAPSULE ER PO (09:08)
[2024-04-06] MEDS: OMEPRAZOLE 20 MG CAPSULE DR 40 MG PO (09:08)
[2024-04-06] MEDS: TORSEMIDE 20 MG TABLET 10 MG PO (09:08)
[2024-04-06] MEDS: CYANOCOBALAMIN 1,000 MCG/ML inj 1000 MCG IM (09:09)
[2024-04-06] MEDS: SPIRONOLACTONE 25 MG TABLET 12.5 MG PO (09:09)
[2024-04-06] MEDS: DULOXETINE HCL 20 MG CAPSULE DR PO (09:09)
[2024-04-06] MEDS: SODIUM CHLORIDE 0.9 % (FLUSH) 10 ML SYRINGE 5 ML IVF (09:09)
[2024-04-06 09:54] VITALS: RESP 20
[2024-04-06 09:57] VITALS: RESP 20; O2SAT 93
[2024-04-06 10:00] VITALS: BP 123/88; PULSE 84; RESP 20; TEMP 36.8; O2SAT 93
--- NOTE | 2024-04-06 11:12 | P.DS_ITS ---
DS: Providers Provider Date Seen: 04/06/24 Date of admission: 04/02/24 16:30 Primary care physician: Sylvia Guillen MD Admitting Clinician: Cosme Keene MD Consults: 04/02/24 16:30 Consult to Nutrition [CONS] Routine Comment: Reason for consult:: Miscellaneous Consult to Physical Therapy [CONS] Routine Comment: Reason(s) for PT Consult:: Evaluate and Treat Any Restrictions?:: No Restrictions Consult to Risk Consulting Treasury Director [CONS] Routine Comment: Reason for Consult:: Discharge Planning Needs 04/02/24 16:33 Consult to Occupational Therapy [CONS] Routine Comment: Reason(s) for OT Consult:: Evaluate and Treat Any Restrictions?:: No Restrictions 04/02/24 16:56 Consult to Physical Therapy [CONS] Routine Comment: Reason(s) for PT Consult:: Balance Assessment Any Restrictions?:: No Restrictions Consult to Risk Consulting Treasury Director [CONS] Routine Comment: Reason for Consult:: Home Health Assessment Attending Physician on discharge: Lauren Rhodes [facility], [facility] Date of Discharge: 04/06/24 DS: Diagnosis Discharge Diagnosis (1) Iron deficiency anemia: Status: Chronic Problem details: Apparently longstanding history of iron deficiency anemia due to GI blood loss. Records from [place] indicate that in 2020 she had evaluation for iron deficiency anemia and they found angioectasias of the duodenum and cecum which were treated with cautery. She is not aware of obvious ongoing bleeding though she does admit her stools are dark. Recently started on Xarelto following hip fracture repair and new onset paroxysmal atrial fibrillation diagnosis. Hemoglobin 6.6 on admission, improved to > 9 following transfusion. Remains stable, 9.8 on day of discharge. Xarelto has been discontinued. Will need follow-up with PCP and Cardiology for further management. Patient is due for outpatient iron therapy. Schedule through PCP. (2) Dyspnea: Status: Acute Problem details: Acute dyspnea likely due to blood loss. Resolved with blood transfusion. Chronic hypoxic respiratory failure appears stable. (3) Weakness: Status: Acute Problem details: Acute on chronic likely due to blood loss. Therapies consulted. Will continue with outpatient therapies as previously scheduled. (4) COPD (chronic obstructive pulmonary disease): Status: Acute Problem details: Chronic/severe, oxygen dependent. No evidence of acute exacerbation at this time. Continued on home oxygen and medications. CTA chest shows a few scattered sub 6 millimeter indeterminate pulmonary nodules. Consider optional [address] to document stability and assess underlying malignant potential (5) Paroxysmal atrial fibrillation: Status: Acute Problem details: Single self-limited episode of atrial fibrillation on 03/18/2024. Started on Xarelto 20 mg daily. Now in sinus rhythm. Due to active bleeding discontinued Xarelto pending outpatient follow-up with Cardiology. If resuming Xarelto consider resuming at a renal dose of 15 mg daily or switching to apixaban also possibly renally at 2.5 mg twice daily. (6) Status post closed fracture of one hip: Status: Acute Problem details: Now 3 weeks status post hip fracture surgery. PT/OT consulted. Will continue with outpatient therapies as previously scheduled. With her being more mobile and being 3 weeks out from surgery her risk of VTE is much lower. Given her current bleeding discontinued anticoagulation. (7) Diastolic heart failure: Status: Chronic Problem details: Diastolic heart failure, early 2022, folowed by [place] [facility] q 3 months, also on jardiance. Continued on home medications. DS: Summary Hospital Course Hospital Course: [age] year old female admitted to the medical floor for management acute GI bleed. Course of care and details as noted above. Remainder of chronic medical comorbidities were monitored and managed with home medications. Status at Discharge Overall status at discharge: patient is back to baseline Time Spent with Patient Time attestation: Total time spent providing and/or coordinating discharge services: Time spent: Greater than 30 minutes Exam Narrative: Exam Narrative: PHYSICAL EXAM General: Pleasant, conversant, NAD Cardiovascular: RRR Pulmonary: No dyspnea Neurological: Alert, answering questions appropriately Skin: Warm, dry. Const: Vital Signs, click to edit/add: Vital Signs - 24 hr 04/05/24 15:00 04/05/24 15:00 04/05/24 15:00 Temperature Pulse Rate 67 Pulse Rate [Right Pulse Oximeter] 68 Respiratory Rate 18 18 Blood Pressure [Ri ght Arm] Pulse Oximetry 96 Oxygen Delivery Me thod Nasal Cannula Oxygen Flow Rate 1 Fraction of Inspir ed Oxygen 2 04/05/24 15:00 04/05/24 19:24 04/05/24 20:53 Temperature 98.1 F Pulse Rate Pulse Rate [Right Pulse Oximeter] 63 90 Respiratory Rate 18 20 Blood Pressure [Ri ght Arm] 115/83 97/70 108/76 Pulse Oximetry 96 97 Oxygen Delivery Me thod Nasal Cannula Nasal Cannula Oxygen Flow Rate 1 1 Fraction of Inspir ed Oxygen 04/05/24 22:21 04/05/24 23:10 04/05/24 23:12 Temperature Pulse Rate 69 Pulse Rate [Right Pulse Oximeter] 73 Respiratory Rate 20 20 Blood Pressure [Ri ght Arm] 105/75 Pulse Oximetry 96 96 Oxygen Delivery Me thod Nasal Cannula Nasal Cannula Oxygen Flow Rate 1 1 Fraction of Inspir ed Oxygen 04/05/24 23:14 04/06/24 03:57 04/06/24 07:50 Temperature 98.3 F Pulse Rate 65 Pulse Rate [Right Pulse Oximeter] 66 Respiratory Rate 20 22 Blood Pressure [Ri ght Arm] 132/87 Pulse Oximetry 98 Oxygen Delivery Me thod Nasal Cannula Oxygen Flow Rate 1 Fraction of Inspir ed Oxygen 04/06/24 09:54 04/06/24 09:57 04/06/24 10:00 Temperature 98.3 F Pulse Rate Pulse Rate [Right Pulse Oximeter] 84 Respiratory Rate 20 20 20 Blood Pressure [Ri ght Arm] 123/88 Pulse Oximetry 93 93 Oxygen Delivery Me thod Nasal Cannula Nasal Cannula Oxygen Flow Rate 1 1 Fraction of Inspir ed Oxygen DS: Data Data Completed and Pending Completed studies during hospitalization: Procedures Introduction of Other Gas into Respiratory Tract, Via Natural or Artificial Opening (03/15/24) Replacement of Right Hip Joint, Femoral Surface with Metal Synthetic Substitute, Cemented, Open Approach (03/15/24) Labs on day of discharge: Labs from last 24 hours 04/05/24 04/02/24 13:12 13:15 Hgb 9.8 L VBG pH 7.390 VBG pCO2 60 H VBG pO2 37.5 VBG HCO3 36 H Blood Type A Negative Antibody Screen NEGATIVE Crossmatch (AHG) See Detail See Detail Imaging CT scan - chest: Attestation: I have reviewed the pertinent imaging results. Radiologist's impression: CT chest PE was acquired with 95 cc Isovue 370 IV contrast. COMPARISON: None FINDINGS: Pulmonary Arteries: No CT evidence of pulmonary thromboembolic disease. No pulmonary hypertension or right ventricular strain. Heart and Mediastinum: Atrophic thyroid. No axillary or supraclavicular lymphadenopathy. No mediastinal, hilar or retrocrural lymphadenopathy. Normal heart size. Normal caliber aorta. Aortic ulcer like projection at the arch. Atherosclerotic calcifications of the aorta and its branches. Coronary artery calcifications. Mitral annular calcifications. Lungs and Airways: Upper lobe predominant centrilobular emphysema. Scattered areas right lower lobe predominant endobronchial mucous plugging. No mass or consolidation. Scattered sub 6 millimeter indeterminate pulmonary nodules. No central endoluminal lesion. Pleura: The pleural spaces are normal. Abdomen: Fenestrated aortic graft extending inferiorly off the field of view. Bones and soft tissues: Age-indeterminate, likely chronic multilevel vertebral body compression fractures at T4, T5, T7, T9, and T12. No retropulsed fragments. Recommend correlation with localized physical exam to assess for point tenderness and chronicity. IMPRESSION: 1. No CT evidence of pulmonary thromboembolic disease. 2. No intrathoracic mass or consolidation. Emphysema. 3. A few scattered sub 6 millimeter indeterminate pulmonary nodules. Consider optional [address] to document stability and assess underlying malignant potential. 4. Right lower lobe endobronchial mucous plug. 5. Age-indeterminate, likely chronic multilevel vertebral body compression fractures at T4, T5, T7, T9, and T12. No retropulsed fragments. Recommend correlation with localized physical exam to assess for point tenderness and chronicity. Chest x-ray: Attestation: I have reviewed the pertinent imaging results. Radiologist's impression: Two views of the chest Comparison: Chest radiograph on March 13, 2024 Findings: The patient is again rotated to the right. The cardiomediastinal silhouette is unchanged compared to prior exam. The heart size within normal limits. No focal airspace consolidation, pleural effusion, or pneumothorax. Likely chronic emphysematous changes. No displaced fractures. Likely remote compression deformities of the thoracic vertebral bodies. Abdominal aorta graft with smaller stents, unchanged. Impression: No acute cardiopulmonary process. Discharge Plan Discharge Disposition: Home, Self-Care Date of Admission: 04/02/24 16:30 Attending Provider on Discharge: Lauren Rhodes Primary Care Provider: Sylvia Guillen Condition: Unchanged Anticipated Discharge Date/Time: 04/06/24 10:42 Discharge Medications: Continued torsemide 20 mg tablet 20 mg PO DAILY rosuvastatin 10 mg tablet 10 mg PO HS acetaminophen 500 mg capsule 1,000 mg PO Q6H PRN albuterol sulfate [Ventolin HFA] 90 mcg/actuation HFA aerosol inhaler 2 puff INHALATION Q4H PRN Patient Comments: INHALE 2 PUFFS BY MOUTH EVERY 4 HOURS NEEDED FOR WHEEZING AND FOR SHORTNESS OF BREATH fluticasone propionate 50 mcg/actuation spray,suspension 2 spray INTRANASAL DAILY PRN fexofenadine-pseudoephedrine [24HR Allergy-Congestion Relief] 180-240 mg tablet extended release 24 hr 1 tab PO DAILY PRN cyanocobalamin (vitamin B-12) 1,000 mcg/mL kit 1,000 mcg IM Q30D Rx Instructions: MONTHLY ipratropium-albuterol 0.5 mg-3 mg(2.5 mg base)/3 mL solution for nebulization 3 ml inhalation QID PRN (DME) Home Oxygen Misc See Rx Instructions .Route Qty: 1 0RF Rx Instructions: As directed Trelegy Ellipta 100-62.5-25 mcg blister with device 1 ea INHALATION DAILY duloxetine [Cymbalta] 20 mg capsule,delayed release(DR/EC) 20 mg PO DAILY Rx Instructions: Has to be brand name Cymbalta no substitution cholecalciferol (vitamin D3) 25 mcg (1,000 unit) tablet 25 mcg PO DAILY sennosides [Senna Lax] 8.6 mg Tablet 17.2 mg PO BID PRN (Reason: constipation) Qty: 100 0RF oxycodone 5 mg tablet 5 mg PO Q6H MDD 6 PRN (Reason: pain) Qty: 30 0RF Rx Instructions: Take as needed for postop pain. potassium chloride [Klor-Con M20] 20 mEq tablet,ER particles/crystals 20 meq PO DAILY metoprolol tartrate 25 mg tablet 12.5 mg PO BID spironolactone 25 mg tablet 25 mg PO DAILY Hold Instructions: Doctor's Order omeprazole 40 mg capsule,delayed release(DR/EC) 40 mg PO DAILY Qty: 30 2RF Discontinued Xarelto 20 mg tablet 20 mg PO QPM Rx Instructions: take with evening meal. Discharge Orders: Discharge Order (Routine); Ordered 04/06/24 Ordered By: Lauren Rhodes Patient Education: Gastrointestinal Bleeding (IP), Anemia (GEN) Additional Instructions: Hemoglobin on day of discharge is 9.8. Do not take your Xarelto until follow-up and further management recommendations with PCP and Cardiology. Call to schedule your iron infusion. Continue outpatient therapies as previously scheduled. Activity Level: No Restrictions Discharge Diet: Regular Follow Up Appointments: Sylvia Guillen MD [Primary Care Provider] - 04/10/24 2:30 pm ([facility] for hospital follow-up appointment. Check bleed on DOAC, anemia, iron infusion) Forms: [employer] Info Instructions
--- NOTE | 2024-04-06 12:44 | PC.NURSE ---
Discharge - Pt alert, oriented, cooperative and pleasant. Up with standby assistance and walker/gait belt. Continent of bowel and bladder during shift. Mepilex on coccyx CDI. Pt denied pain, SOB, N/V. Tolerating 1L of O2 via nasal cannula and maintaining saturation above 90%. IV removed x 2 with catheter intact. Discharge instruction given to pt and primary palliative care nurse practitioner with verbalized understanding. Pt d/c'd to home with palliative care nurse practitioner via wheelchair at approximately 1230.
== END 2024-04-06 12:30 | disposition home or self-care (01) | DRG 812 ==
LOC: ED 15:02 → MEDSURG 15:14
PROVIDERS: Internal Medicine; Admitting Provider Family Medicine; Emergency Provider Family Medicine; PCP Family Medicine; Visit Provider Family Medicine
DX: D62 Acute posthemorrhagic anemia (principal); K92.2 Gastrointestinal hemorrhage, unspecified; J96.11 Chronic respiratory failure with hypoxia; I50.32 Chronic diastolic (congestive) heart failure; R64 Cachexia; Z68.1 Body mass index [BMI] 19.9 or less, adult; I11.0 Hypertensive heart disease with heart failure; I48.0 Paroxysmal atrial fibrillation; G47.33 Obstructive sleep apnea (adult) (pediatric); Z99.81 Dependence on supplemental oxygen; J44.9 Chronic obstructive pulmonary disease, unspecified; F17.210 Nicotine dependence, cigarettes, uncomplicated; S72.091D Other fracture of head and neck of right femur, subsequent encounter for closed fracture with routine healing; R54 Age-related physical debility; I27.20 Pulmonary hypertension, unspecified; I77.810 Thoracic aortic ectasia; F32.A Depression, unspecified; I45.19 Other right bundle-branch block; E55.9 Vitamin D deficiency, unspecified; M79.7 Fibromyalgia; G89.29 Other chronic pain; Z79.01 Long term (current) use of anticoagulants; Z86.73 Personal history of transient ischemic attack (TIA), and cerebral infarction without residual deficits; K31.819 Angiodysplasia of stomach and duodenum without bleeding; R91.8 Other nonspecific abnormal finding of lung field
CPT/HCPCS: 00731; 36415; 36430; 43239; 71046; 71275; 80048; 80053; 80076; 82270; 82728; 82803; 83605; 83735; 83880; 84484; 85018; 85025; 85379; 86140; 86850; 86900; 86901; 86922; 87086; 87631; 88305; 93005; 94761; 97110; 97116; 97161; 97165; 97535; 99100; 99284; 99285; A9270; C9113; J1940; J2704; J3420; J3490; P9016; Q9967

== ENCOUNTER 2024-04-10 14:52 | Outpatient (CLI) | payer MEDICARE, BC, SELFPAY ==
--- OUTSIDE RECORDS SUMMARY | 2024-04-10 14:57 | XMS_ITS | Clinical Summary ---
Author Organization [facility] Address [address] [place] [address] Care Team Providers Care Level Glass Forming Machine Operator Name Role Phone [facility] Allergies Active Allergy Reactions Criticality Noted [...] to review and confirm Imo Update utility Fatigue 11/19/2012 Fibromyalgia Leg swelling Smoker CARDIOVASCULAR SCREENING; LDL GOAL LESS THAN 160 Resolved Problems Problem Noted Date Diagnosed Date Resolved Date Advanced directives, counseling/discussion 11/19/2012 03/23/2024 Overview: Parent voices understanding and acceptance of this advice and will call back if any further questions or concerns. Pneumonia 03/07/2011 05/24/2017 Immunizations Name Administration Dates [...] 06/05/2022 06/05/2021, 03/08, 05/12/2019, Additional history exists COVID-19 Vaccine ( season) 2023 06/28/2021, 12/09/2020, 11/18/2020 INFLUENZA VACCINE (#1) 2024 , 11/17/2019, 07/24/2007, Additional history exists ADVANCE CARE PLANNING 06/15/2025 06/15/2020 , 11/17/2019 (Declined), 11/19/2012 GLUCOSE 03/19/2027 03/19/2024, 05/2020, 03/29/2020, Additional history exists DEXA 03/09/2035 03/09/2020, 071 02/2015, 12/24/2012, Additional history exists Pneumococcal Vaccine: 65+ Years Completed 10/17/2015, 03/11/2013, 07/07/2000 HEPATITIS C SCREENING Completed 09/25/2016 COPD ACTION PLAN Completed 05/24/2017 MAMMO SCREENING Discontinued 09/16/2019, 2 05/2016, 02/09/2015, Additional history exists SPIROMETRY Completed 11/21/2020, 060 05/2020, 10/12/2019, Additional history exists COLONOSCOPY Discontinued 06/01/2021 [...] Procedure Name Priority Date/Time Associated Diagnosis Comments TRIP CHARGE - LAB ONLY Routine 04/02/2024 7:58 AM CDT Anemia, unspecified CBC WITH PLATELETS Routine 04/02/2024 7: 58 AM CDT Anemia, unspecified TRIP CHARGE - LAB ONLY Routine 03/26/2024 6:42 AM CDT Hypokalemia POTASSIUM Routine 03/26/2024 6:42 AM CDT Hypokalemia BASIC METABOLIC PANEL (OUTREACH) Routine 03/19/2024 8:49 AM CDT Unspecified atrial fibrillation (H) TRIP CHARGE - LAB ONLY Routine 03/19/2024 8:49 AM CDT Unspecified atrial fibrillation (H) BASIC METABOLIC PANEL NO GLUCOSE (OUTREACH) Routine 03/19/2024 8:49 AM CDT Unspecified atrial fibrillation (H) GLUCOSE (OUTREACH) Routine 03/19/2024 8: 49 AM CDT Unspecified atrial fibrillation (H) LIPID REFLEX TO DIRECT LDL PANEL Routine 06/05/2021 11:12 AM CDT Hyperlipidemia LDL goal <100 SPIROMETRY - HIM SCAN Routine 11/21/2020 DX HIP/PELVIS/SPINE W LAT FRACTION ANALYSIS Routine 03/09/2020 11:51 AM CDT Menopause Senile osteoporosis MA SCREENING BILATERAL W/ MAURIZIO Routine 09/16/2019 10:48 AM SATELLITE DISH INSTALLER Visit for screening mammogram CT CHEST W/O CONTRAST Routine 09/16/2019 10:02 AM SATELLITE DISH INSTALLER Pulmonary nodules HEPATITIS C ANTIBODY Routine 09/25/2016 10:49 AM SATELLITE DISH INSTALLER Routine general medical examination at a health care facility from Last 3 Months or Most Recently Relevant to Health Maintenance Results * Trip Charge - LAB ONLY (04/02/2024 7:58 AM CDT) Only the most recent of3 resultswithin the time period is included. Other TOPOGRAPHY UNKNOWN / Unknown Billing only / Unknown 04/02/2024 7:58 AM CDT 04/02/2024 10:31 AM CDT Demario Metzger NP LAB CHARGE PERFORMAB LES [facility] [address] * (ABNORMAL) CBC with platelets (04/02/2024 7:58 AM CDT) WBC Count 9.5 4.0 - 11.0 10e3/uL 04/02/2024 11:51 AM CDT [facility] RBC Count 2.11(L) 3.80 - 5.20 10e6/uL 04/02/2024 11:51 AM CDT [facility] Hemoglobin 6.3(LL) 11.7 - 15.7 g/dL 04/02/2024 11:51 AM CDT [facility] Hematocrit 22.6(L) 35.0 - 47.0 % 04/02/2024 11:51 AM CDT [facility] MCV 107(H) 78 - 100 fL 04/02/2024 11:51 AM CDT [facility] MCH 29.9 26.5 - 33.0 pg 04/02/2024 11:51 AM CDT [facility] MCHC 27.9(L) 31.5 - 36.5 g/dL 04/02/2024 11:51 AM CDT [facility] RDW 18.2(H) 10.0 - 15.0 % 04/02/2024 11:51 AM CDT [facility] Platelet Count 579(H) 150 - 450 10e3/uL 04/02/2024 11:51 AM CDT [facility] Blood STRUCTURE OF RIGHT UPPER LIMB / Unknown Venipuncture / Unknown 04/02/2024 7:58 AM CDT 04/02/2024 10:31 AM CDT Demario Metzger LOGISTICS CLERK LAB - BLOOD ORDERABL ES Performing Organization Address City/[facility]/ZIP Co de Phone Number [facility] [address] [facility], [address] * Potassium (03/26/2024 6:42 AM CDT) Potassium 4.5 3.4 - 5.3 mmol/L 03/26/2024 11:46 AM CDT [facility] Blood STRUCTURE OF LEFT UPPER LIMB / Unknown Venipuncture / Unknown 03/26/2024 6:42 AM CDT 03/26/2024 9:07 AM CDT Demario Metzger LAB - BLOOD ORDERABL ES Performing Organization Address City/[facility] Co de Phone Number [facility] [address] [facility], [address] * (ABNORMAL) Basic Metabolic Panel No Glucose (OUTREACH) (03/19/2024 8:49 AM CDT) Sodium 139 135 - 145 mmol/L 03/19/2024 3:54 PM CDT [facility] Comment:Reference intervals for this test were updated on 07/02/2023 to more accurately reflect our healthy population. There may be differences in the flagging of prior results with similar values performed with this method. Interpretation of those prior results can be made in the context of the updated reference intervals. Potassium 3.3(L) 3.4 - 5.3 mmol/L 03/19/2024 3:54 PM CDT [facility] Chloride 93(L) 98 - 107 mmol/L 03/19/2024 3:54 PM CDT [facility] Carbon Dioxide (CO2) 37(H) 22 - 29 mmol/L 03/19/2024 3:54 PM CDT [facility] Anion Gap 9 7 - 15 mmol/L 03/19/2024 3:54 PM CDT [facility] Urea Nitrogen 17.6 8.0 - 23.0 mg/dL 03/19/2024 3:54 PM CDT [facility] Creatinine 0.59 0.51 - 0.95 mg/dL 03/19/2024 3:54 PM CDT [facility] GFR Estimate >90 >60 mL/min/1. 73m2 03/19/2024 3:54 PM CDT [facility] Calcium 9.1 8.8 - 10.2 mg/dL 03/19/2024 3:54 PM CDT [facility] Blood STRUCTURE OF LEFT UPPER LIMB / Unknown Venipuncture / Unknown 03/19/2024 8:49 AM CDT 03/19/2024 1:18 PM CDT Demario Metzger LOGISTICS CLERK LAB - BLOOD ORDERABL ES Performing Organization Address City/[facility]/ZIP Co de Phone Number [facility] [address] [facility], [address] * (ABNORMAL) Glucose (OUTREACH) (03/19/2024 8:49 AM CDT) Glucose 140(H) 70 - 99 mg/dL 03/19/2024 11:05 PM CDT [facility] Blood STRUCTURE OF LEFT UPPER LIMB / Unknown Venipuncture / Unknown 03/19/2024 8:49 AM CDT 03/19/2024 1:18 PM CDT Demario Metzger LOGISTICS CLERK LAB - BLOOD ORDERABL ES [facility] [address] [facility], [address] * Lipid panel reflex to direct LDL [...] 06/05/2021 11:13 AM CDT Lavonne Hays APRN CORRUGATED BOX MACHINE OPERATOR LAB - BLOOD ORDERA [facility] [address] Lab (no room number, 1st floor of clinic) [place] [address], [facility] [phone] * Spirometry - HIM Scan (11/21/2020) Narrative Jamin Leon - 11/21/2020 [facility] PROGRESS NOTE Provider Outside PFT ORDERABLES * DX Hip/Pelvis/Spine w Lat Fraction Guera (03/09/2020 11:51 AM CDT) Anatomical Region Laterality Modality Dexa Bone Mineral Den sity Narrative 03/09/2020 10:07 PM CDT BONE DENSITOMETRY [address] [address] 03/09/2020 ?? PATIENT: Marty Rivera CHART: [id number] : ??1945 AGE: ??75 year old SEX: ??female REFERRING PROVIDER: ??Tia Oakes MD ?? PROCEDURE: ??Bone density scanning was performed using DXA technology of the lumbar spine and hip. ??Scanning was performed on a Coferon scanner. ??Reporting is completed in the form [...] to another DXA performed on the same Coferon ?? machine on 04/20/2015. ?? LATERAL VERTEBRAL ASSESSMENT Procedure: ??Vertebral fracture assessment was performed in the lateral decubitus position using a [employer] ??densitometer. Indications for VFA: T-score of -1.0 [...] MA Screen Bilateral w/Maurizio (09/16/2019 10:48 AM SATELLITE DISH INSTALLER) Anatomical Region Laterality Modality Breast Bilateral Mammography Impressions 09/16/2019 11:14 AM SATELLITE DISH INSTALLER IMPRESSION: BI-RADS CATEGORY: 1 - ??Negative. RECOMMENDED FOLLOW-UP: Annual Mammography. ALEJANDRO LOYD MD Narrative 09/16/2019 11:14 AM SATELLITE DISH INSTALLER SCREENING MAMMOGRAM, BILATERAL, DIGITAL w/CAD and TOMOSYNTHESIS, [...] CT Chest w/o Contrast (09/16/2019 10:02 AM SATELLITE DISH INSTALLER) Anatomical Region Laterality Modality Chest, SUBRAD CT BODY, UMP CT CHEST, RAD CT Computed Tomography Impressions 09/16/2019 12:11 PM SATELLITE DISH INSTALLER IMPRESSION: 1. Multiple indeterminate lung nodules. Due [...] BRENT SMALLWOOD MD Narrative 09/16/2019 12:11 [address] DISH INSTALLER CT CHEST WITHOUT CONTRAST 09/16/2019 10:02 AM [...] * Hepatitis C antibody (09/25/2016 10:49 AM SATELLITE DISH INSTALLER) Hepatitis C Antibody Nonreactive Assay performance characteristics have not been established for newborns, infants, and children NR [facility] Blood specimen (specimen) 09/25/2016 10:49 AM SATELLITE DISH INSTALLER 09/25/2016 10:52 AM SATELLITE DISH INSTALLER Tia Oakes MD LAB - BLOOD ORDERA BLES [facility] [address] [place] [address] from Last 3 Months or Most Recently Relevant to Health Maintenance Care Teams Level Glass Forming Machine Operator Relationship Specialty Start Date End Date [facility] - [address] [address] Assigned PCP 10/31/23
--- OUTSIDE RECORDS SUMMARY | 2024-04-10 14:57 | XMS_ITS | Encounter Summary ---
Author Organization [facility] Address [address] [place] [address] Care Team Providers Care Solution Developer Name Role Phone Lavonne Hays APRN, CNP Primary Care Provider Belen Tia Suarez MD Unavailable [phone] Lavonne Hays APRN, CNP Unavailable Unavailab Alejandro Florence MD Unavailable [phone] Lavonne Hays APRN, CNP Unavailable Unavailab [facility] Unavailable Reason for Visit * Reason Comments Medication Refill Encounter Details Date Type Department Care Team (Late st Contact Info) Description 12/08/2021 Refill [facility] [address] [place] [id number] Lavonne Hays APRN CNP NO INFO AVAILABLE [...] 12/08/2021 1:55 PM CST Prescription approved per [facility] Refill Protocol. Bri Mason RN CUTTING MACHINE OPERATOR documented in this encounter Plan of Treatment Not on file documented as of this encounter Visit Diagnoses Diagnosis Hyperlipidemia LDL goal <100 Other and unspecified hyperlipidemia TIA (transient ischemic attack) Unspecified transient cerebral ischemia documented in this encounter Additional Health Concerns Assessment Noted Time PHQ-9 Depression Total Score: 10 021 10:07 AM CDT documented as of this encounter Care Teams Solution Developer Relationship Specialty Start Date End Date Lavonne Hays APRN COMPUTER OPERATOR PCP - General Internal Medicine 05/19/21 12/18/23 Tia Oakes MD [address] [place] [id number] Assigned PCP 10/15/21 12/16/21 Lavonne Hays APRN COMPUTER OPERATOR NO INFO AVAILABLE 04/29/2023 Assigned PCP 12/17/21 12/07/22 Alejandro Singer MD [address] [facility] [address] [place] [address] Assigned PCP 12/08/22 04/19/23 Lavonne Hays APRN COMPUTER OPERATOR NO INFO AVAILABLE 04/29/2023 Assigned PCP 04/20/23 10/30/23 [facility] [address] [place], [place] [id number] Assigned PCP 10/31/23 documented as of this encounter
--- OUTSIDE RECORDS SUMMARY | 2024-04-10 14:57 | XMS_ITS | Continuity of Care Document ---
Author Organization [facility] Address [address] [address] [place] [address] Phone Care Team Providers Care Loader Operator Name Role Phone Adilene Sheikh Unavailable Unavailable Allergies, Adverse Reactions, Alerts Substance Reaction Status Criticality Penicillins Fatigue Active No Information Tetanus Vaccines and Toxoid Fatigue Active No Information erythromycin base Vomiting Active No Informa tion codeine Rash Active No Information Medications Medication Instructions Dosage Effective Dates (start - stop) Status Comments Cymbalta 60 mg capsule,delayed release take 1 capsule by oral route every day 60 MG - Active Ocuvite 150 mg-30 unit-5 mg-150 mg capsule take 1 Tablet by Oral route every day - Active Symbicort 160 mcg-4.5 mcg/actuation HFA aerosol inhaler inhale 1 puff by inhalation route 2 times every day in the morning and evening 1 puff - Active Spiriva Respimat 1.25 mcg/actuation solution for inhalation inhale 2 puff by inhalation route every day 2.5 MCG - Active Aleve 220 mg tablet take 1 tablet by ora l route every 12 hours as needed 220 MG - Active Vitamin D3 2,000 unit capsule take 1 Tablet by Oral route once 1 Tablet - Active Zofran 4 mg tablet take 1 Tablet by ora l route every 8 hours as needed 4 MG - Active Procedures Procedure Date Offic/outpt E&m New Mod-hi Routine Serum Collection Gg; Iga, Igd, Igg, Igm, Ea Advance Directives Directive Yes / No Effective Date File Name No Information Encounters Encounter Description Practice Location Reason(s) For Visit Diagnoses Date Provider Providers Copied on Encounter [facility], [address] [address], [place], [id number], [place] tel:[phone] [facility] No Information [address] Mark Head. [address] [facility], [facility] [address], [facility] [place], [place], [id number] , [place]. tel: [phone] Offic/outpt E&m New Mod-hi [facility], [address] [address], [place], [id number], [place] tel:[phone] [facility] GI Symptoms or Concerns (chief complaint) DiarrheaBloatingNaus ea 6 Trever Higgins. [address] [facility], [facility] [address], [facility] [place], [place], [id number] , [place]. tel: [phone] Family History Family Member Type Diagnosis Age At Onset Daughter Problem (finding) Alive and well Son Problem (finding) Alive and well Brother Problem (finding) diverticulitis of colon Sister Problem (finding) diverticulitis of colon Payers Payer name Insurance type Covered democrat ID Authoriza tion(s) [employer] [place] [employer] [place] [id number] Social History Type Description Quantity Date Captured Comments Alcohol Use Details Unknown Caffeine Use Details Unknown Tobacco Use Status Smoking Status No Information Sex Female Chief Complaint And Reason For Visit No Information Reason For Referral Reason For Referral No Information Plan Of Treatment Date Type Action Status Referral Ordered: Colonoscopy Appointment date/timeframe: -today ordered History Of Present Illness Encounter Date Complaint History Of Prese nt Illness GI Symptoms or Concerns The brittney ent is a 70-year-old female with a past medical history significant for fibromyalgia on Aleve as well as Cymbalta seen for evaluation of a two-month history of diarrhea.The patient indicates symptoms have started to improve. Initially she was having five to 10 episodes of diarrhea per day. More recently, she is having three to four per day. She denies night symptoms. She describes the stool as watery to mushy. She denies solid stools. She denies blood in the stool. She denies weight loss or significant abdominal pain. She does report bloating and some mild mid abdominal discomfort.She reports a history of lactose intolerance and avoids dairy, she does admit to significant stress. Symptoms have been associated with nausea, but no vomiting. She denies any recent changes in medications.She did have a colonoscopy performed elsewhere about 10 years ago, and is due for one now. Recent labs through her primary care physician revealed a normal CBC with a hemoglobi Functional Status Date Functional Assessmen t No Information Instructions Date Instruction Additional Infor olu 1. colonoscopy with TI eval and random biopsies (prescribed zofran for nausea during prep)2. stool culture, o&p, giardia3. total IgA4. imodium as needed5. f/u after colonoscopy-if eval negative recommend antidiarrheals, fiber, stress management Related to Nausea Colonoscopy Related to Diarr hea, unspecified Assessments Type Assessment Date No Information Patient Care Teams Name Effective Dates (start - stop) Status Members No Information
--- OUTSIDE RECORDS SUMMARY | 2024-04-10 14:57 | XMS_ITS | Referral Summary ---
Author Organization [facility] Address [address] [place] [address] Care Team Providers Care Production Director Name Role Phone [facility] Allergies Active Allergy Reactions Criticality Noted Date [...] BILATERAL W/ MAURIZIO Routine 09/16/2019 10:48 AM APPLIANCE SERVICE TECHNICIAN Visit for screening mammogram CT CHEST W/O CONTRAST Routine 09/16/2019 10:02 AM APPLIANCE SERVICE TECHNICIAN Pulmonary nodules HEPATITIS C ANTIBODY Routine 09/25/2016 10:49 AM APPLIANCE SERVICE TECHNICIAN Routine general medical examination at a health care facility from Last 3 Months or Most Recently Relevant to Health Maintenance Results * Trip Charge - LAB ONLY (04/02/2024 7:58 AM CDT) Only the most recent of3 resultswithin the time period is included. Other TOPOGRAPHY UNKNOWN / Unknown Billing only / Unknown 04/02/2024 7:58 AM CDT 04/02/2024 10:31 AM CDT Demario Ceballos Domenica BHATT LAB CHARGE PERFORMAB LES [facility] [address] [place] [address] * (ABNORMAL) CBC with platelets (04/02/2024 7:58 AM CDT) Pathologist [facility] WBC Count 9.5 4.0 - 11.0 10e3/uL [...] 7:58 AM CDT 04/02/2024 10:31 AM CDT Rgduyen Lin Metzger NP LAB - BLOOD ORDERABL ES [facility] [address] [facility], [address] [place] [id number] * Potassium (03/26/2024 6:42 AM CDT) Potassium 4.5 3.4 - 5.3 mmol/L 03/26/2024 11:46 AM CDT [facility] Blood STRUCTURE OF LEFT UPPER LIMB / Unknown Venipuncture / Unknown 03/26/2024 6:42 AM CDT 03/26/2024 9:07 AM CDT Demario Ceballos Rgsrinivas [facility] LAB - BLOOD ORDERABL ES [facility] [address] [facility], [address] [place] [id number] * (ABNORMAL) Basic Metabolic Panel No Glucose [...] CDT 03/19/2024 1:18 PM CDT Demario Metzger REGISTERED NURSE NURSERY LAB - BLOOD ORDERABL ES Performing Organization Address City/[facility] Co de Phone Number U [facility] [place] [facility] [address] [facility], [address] * (ABNORMAL) Glucose (OUTREACH) (03/19/2024 8:49 AM CDT) Glucose 140(H) 70 - 99 mg/dL 03/19/2024 11:05 PM CDT [facility] Blood STRUCTURE OF LEFT UPPER LIMB / Unknown Venipuncture / Unknown 03/19/2024 8:49 AM CDT 03/19/2024 1:18 PM CDT Demario Metzger LAB - BLOOD ORDERABL ES Performing Organization Address City/[facility] de Phone Number LABORATORY [facility] Lab [address] [facility], [address] * Lipid panel reflex to direct [...] 06/05/2021 11:13 AM CDT Lavonne Saúl MERRILL MANAGEMENT DEVELOPMENT SPECIALIST LAB - BLOOD ORDERA [facility] [address] Lab (no room number, 1st floor of clinic) [place] [address], [facility] [phone] * Spirometry - HIM Scan (11/21/2020) Narrative Jamin Leon - 11/21/2020 [facility] PROGRESS NOTE Provider Outside PFT ORDERABLES * DX Hip/Pelvis/Spine w Lat Fraction Gu[place] (03/09/2020 11:51 AM CDT) Anatomical Region Laterality Modality Dexa Bone Mineral Den sity Narrative 03/09/2020 10:07 PM CDT BONE DENSITOMETRY [address] [address] 03/09/2020 ?? PATIENT: Marty Rivera CHART: [id number] : ??1945 AGE: ??75 year old SEX: ??female REFERRING PROVIDER: ??Tia Oakes MD ?? PROCEDURE: ??Bone density scanning was performed using DXA technology of the lumbar spine and hip. ??Scanning was performed on a Mailbox scanner. ??Reporting is completed in the form [...] to another DXA performed on the same Mailbox ?? machine on 04/20/2015. ?? LATERAL VERTEBRAL ASSESSMENT Procedure: ??Vertebral fracture assessment was performed in the lateral decubitus position using a [employer] ??densitometer. Indications for VFA: T-score of -1.0 [...] MA Screen Bilateral w/Maurizio (09/16/2019 10:48 AM APPLIANCE SERVICE TECHNICIAN) Anatomical Region Laterality Modality Breast Bilateral Mammography Impressions 09/16/2019 11:14 AM APPLIANCE SERVICE TECHNICIAN IMPRESSION: BI-RADS CATEGORY: 1 - ??Negative. RECOMMENDED FOLLOW-UP: Annual Mammography. JAVON LOYD MD Narrative 09/16/2019 11:14 AM APPLIANCE SERVICE TECHNICIAN SCREENING MAMMOGRAM, BILATERAL, DIGITAL w/CAD and TOMOSYNTHESIS, 09/16/2019 11:14 AM BREAST DENSITY: Heterogeneously dense. CLINICAL INFORMATION: Breast screening. ??Visit for screening mammogram, 05/03/2016, 11/26/2012 FINDINGS: Negative. Stable exam. Screening exam in one year recommended. Procedure Note Javon Loyd MD - 09/16/2019 SCREENING MAMMOGRAM, BILATERAL, DIGITAL w/CAD and TOMOSYNTHESIS, 09/16/2019 11:14 AM BREAST DENSITY: Heterogeneously dense. CLINICAL INFORMATION: Breast screening. Visit for screening mammogram, 05/03/2016, 11/26/2012 FINDINGS: Negative. Stable exam. Screening exam in one year recommended. IMPRESSION: BI-RADS CATEGORY: 1 - Negative. RECOMMENDED FOLLOW-UP: Annual Mammography. JAVON LOYD MD Tia Oakes MD IMG MAMMOGRAPHY OR DERABLES * CT Chest w/o Contrast (09/16/2019 10:02 AM APPLIANCE SERVICE TECHNICIAN) Anatomical Region Laterality Modality Chest, SUBRAD CT BODY, UMP CT CHEST, RAD CT Computed Tomography Impressions 09/16/2019 12:11 PM APPLIANCE SERVICE TECHNICIAN IMPRESSION: 1. Multiple indeterminate lung nodules. Due to stability over the past few years, these are probably benign. The nodule in the left upper lobe is stable compared to prior exam. Underlying emphysema. No enlarged lymph nodes. If patient has greater than 30 pack years of smoking, consider low dose annual lung cancer screening CT. 2. Partially imaged abdominal aortic stent graft. MEENA SMALLWOOD MD Narrative 09/16/2019 12:11 PM APPLIANCE SERVICE TECHNICIAN CT CHEST WITHOUT CONTRAST 09/16/2019 10:02 AM [...] examination is within normal limits. Procedure Note Meena Smallwood MD - 09/16/2019 CT CHEST WITHOUT [...] 2. Partially imaged abdominal aortic stent graft. MEENA SMALLWOOD MD Tia Oakes MD IMG CT ORDERABLES * Hepatitis C antibody (09/25/2016 10:49 AM APPLIANCE SERVICE TECHNICIAN) Hepatitis C Antibody Nonreactive Assay performance characteristics have not been established for newborns, infants, and children NR [facility] Blood specimen (specimen) 09/25/2016 10:49 AM APPLIANCE SERVICE TECHNICIAN 09/25/2016 10:52 AM APPLIANCE SERVICE TECHNICIAN Tia Oakes MD LAB - BLOOD ORDERA BLES [facility] [address] [place] [address] from Last 3 Months or Most Recently Relevant to Health Maintenance Care Teams Production Director Relationship Specialty Start Date End Date [facility], [address] [address] Assigned PCP 10/31/23
--- OUTSIDE RECORDS SUMMARY | 2024-04-10 14:57 | XMS_ITS | Clinical Summary ---
Author Organization [employer] [facility] Address [place], [place] [address] Care Team Providers Care Dust Handler Name Role Phone Pcp, No Primary Care Provider Unavailabl e Allergies Active Allergy Reactions Criticality Noted Date Comments Alendronic Acid GI Upset 09/25/2016 Upset stomach Azithromycin Nausea And Vomiting 08/23/2014 Codeine Erythromycin Penicillins Tetanus And Diphtheria Toxoids, Adsorbed, Adult Medications Medication Sig Dispensed Refills Start Date End Date Status CALCIUM + D ORAL Take 1 Tab by mouth once daily. 0 Active ALBUTEROL SULFATE HFA 90 MCG/ACTUATION AEROSOL INHALER inhale 1 puff by inhalation route every 4-6 hours as needed 1 3 09/10/2008 Active VITAMIN D 1,000 UNIT CAP Take by mouth once daily. 02/14/2009 Active aspirin (ECOTRIN) 81 mg enteric coated tablet Take 81 mg by mouth once daily with a meal. Active DULoxetine (CYMBALTA) 60 mg Delayed-release capsule Take 60 mg by mouth once daily. 03/29/2020 Active beta-carotene,A,-vits C,E/mins (OCUVITE ORAL) Take 1 Tab by mouth once daily. Active potassium chloride (K-DUR) 20 mEq Extended-Release tablet Take 20 mEq by mouth once daily if needed. 10/12/2019 Active rosuvastatin (CRESTOR) 10 mg tablet Take 10 mg by mouth at bedtime. 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 08/24/2009 Fibromyalgia syndrome 08/24/2009 COPD 09/10/2008 Myalgia and myositis, unspecified Encounters Date Type Department Care Team Description 04/03/2024 Lab Requisition [facility] [phone] Chan Jamison MD 03/16/2024 10:00 AM CDT Ancillary Procedure [facility] [address] [place] [address] from Last 3 Months Social History Tobacco Use Types Packs/Day Years Used Date Smoking Tobacco: Every Day Cigarettes Smokeless Tobacco: Never Comments:has smoked for 40-4 5 years Alcohol Use Standard Drinks/Week Comments Yes 0 (1 standard drink = 0.6 oz pur e alcohol) 1 glass wine per night Sex and Gender Information Value Date Recorded Sex Assigned at Not on file Gender Identity Not on file Sexual Orientation Not on file Obstetrics History Last Filed Vital Signs Vital Sign Reading Time Taken Comments Blood Pressure 133/80 06/07/2020 12:50 PM CDT Pulse 92 06/07/2020 12:50 PM CDT Temperature 37.1 ??C (98.8 ??F) 06/07/2020 9:49 AM CD T Respiratory Rate 20 06/07/2020 12:50 PM CDT Oxygen Saturation 93% 06/07/2020 12:50 PM CDT Inhaled Oxygen Concentration - - Weight 48.1 kg (106 lb) 06/06/2020 6:32 AM CDT Height 160 cm (5' 3) 06/06/2020 6:32 AM CDT Body Mass Index 18.78 06/06/2020 6:32 AM CDT Plan of Treatment Upcoming Encounters Date Type Department Care Team (Late st Contact Info) Description 04/16/2024 12:45 PM CDT Office Visit [facility] [address] [place] [address] Danielle Hubbard DO [address] [place] [address] Health Maintenance Due Date Last Done Comments Tdap 02/16/1956 Depression screening for age 12+ 1957 BMI (ht and wt on same day) for age 18+ 1963 Hepatitis C screening for ag e 18-79 1963 Tetanus booster 1965 Zoster (shingles) series for age 50+ (1 of 2) 1995 DEXA/DXA scan for age 65+ 2010 08/22/2007 Medicare Wellness for age 65+ 2010 Pneumococcal series for age 65+ (1 of 1 - PCV) 2010 COVID-19 vaccine series (2022-24 season) 2023 05/11/2022, 06/28/2021, 12/09/2020, Additional history exists Influenza for age 65+ 06/07/2024 Medical Devices Implanted Type Area Rn Iv Therapy Device Identifier Shelf Expiration Date Model / Serial / Lot Iol Deschutes +24 Tecnis Zcb00 - [id number] Implanted:Qty: 1 on 04/19/2020 by Dean Galeana MD at [facility] Right: Eye [employer] 01/01/2024 ZCB00 24.0# / [id number] / Ring Cap Type 14 Rt Tension Preload Morcher - [id number] Implanted:Qty: 1 on 04/19/2020 by Dean Galeana MD at [facility] Right: Eye [employer] 08/05/2024 MR14 RIGHT# / / BKCJA Iol Deschutes +24.5 Tecnis Zcb00 - [id number] Implanted:Qty: 1 on 06/07/2020 by Dean Galeana MD at [facility] Left: Eye [employer] 07/14/2023 ZCB00 24.5# / [id number] / Ring Cap Type 14 Rt Tension Preload Morcher - [id number] Implanted:Qty: 1 on 06/07/2020 by Dean Galeana MD at [facility] Left: Eye [employer] 09/05/2024 MR14 RIGHT# / [id number] / [id number] Procedures Procedure Name Priority Date/Time Associated Diagnosis Comments LAB TRACKING EVENT Routine 04/03/2024 10 :45 AM CDT PATH TISSUE EXAM Routine 04/03/2024 10:4 5 AM CDT ECHO TTE COMPLETE WO CONTRAST Routine 03/16/2024 12:11 PM CDT New onset a-fib (HC) XR DXA BONE DENSITY 2 SITES AXIAL Routine 08/22/2007 12:50 PM TANK FILLER Osteoporosis from Last 3 Months or Most Recently Relevant to Health Maintenance Results * LAB TRACKING EVENT (04/03/2024 10:45 AM CDT) Other (Other) Client Collect / Unknown 04/03/2024 10:45 AM CDT 04/03/2024 10:03 PM CDT Chan Jamison MD LAB BILL ONLY [facility] [address] [place] [address], * PATH TISSUE EXAM (04/03/2024 10:45 AM CDT) Case Report Pathology Report ?Case: [id number] ? Authorizing Provider: ??Chan Jamison MD ?Collected: ? 04/03/2024 1045 ? Ordering Location: ? [facility] ?Received: ?04/04/2024 0514 ? Pathologist: ? Blane Greenfield ? MD ALLISON ? Specimens: ?? A) - Duodenum Biopsy ? B) - Stomach Biopsy ? 04/06/2024 1:17 PM CDT [facility] Final Diagnosis A) DUODENUM, BIOPSY: 1. Duodenal intraepithelial lymphocytosis characterized by: ?? a. Increased intraepithelial lymphocytes ?? b. Normal villous architecture (Hays level 1) 2. See comment regarding potential etiologies B) STOMACH, BIOPSY: 1. Non-erosive reactive gastropathy (see comment) ?? a. Sampling: Antral and body mucosae ?? b. Distribution: Antral mucosa 2. Negative for inflammation, atrophy and Helicobacter 04/06/2024 1:17 PM CDT [facility] Comment A) Duodenal intraepithelial lymphocytosis is an etiologically non-specific finding; potential causes include celiac disease ('gluten sensitive enteropathy'), Helicobacter gastritis, NSAID use, Crohn's disease (particularly if focal enhanced gastritis also present), autoimmune disorders, bacterial overgrowth and non-gluten protein intolerance; Helicobacter gastritis as a cause of this duodenal inflammation in this case is essentially excluded given the stomach biopsy findings. Less than half of patients with this histologic finding are ultimately found to have celiac disease. Useful avenues for further evaluation of possible celiac disease include: ?? a. Serum IgA level plus anti-TTG and/or anti-deamidated gliadin peptide ?? b. HLA genotyping (celiac disease is rare if DQ2 and DQ8 absent) ?? c. Family history (celiac disease more likely if family history of ?celiac disease present) ?? d. A trial of gluten restriction (if symptomatic); symptoms such as ?diarrhea, anemia may resolve even if serologies are negative) If this is subsequently proven to be celiac disease the findings on this biopsy would be consistent with a Hays 1 lesion. Please contact us if you have questions ([facility] GI pathology Service [phone]). B) The likely etiology is an ongoing non-inflammatory type mucosal injury due to a chemical type of injury; this may be due to ingestion of non-steroidal anti-inflammatory drugs, aspirin (via prostaglandin-medi ated injury), excess alcohol, corticosteroids, or bile/alkaline reflux, the latter usually in the setting of a gastroenteric anastomosis. 04/06/2024 1:17 PM CDT [facility] Clinical Information Ms. Rivera is a 79 y.o. who presents with iron deficiency anemia. EGD findings include: -Normal exam 04/06/2024 1:17 PM CDT [facility] [employer] [facility] Gross Description A) Received in formalin is a vidal mucosal fragment measuring 4 mm in greatest dimension, which is entirely submitted in one cassette. It is labeled with the patient's name and designated duodenum. B) Received in formalin is a vidal mucosal fragment measuring 5 mm in greatest dimension, which is entirely submitted in one cassette. It is labeled with the patient's name and designated random stomach. Nallely Young 04/04/2024 10:40 AM 04/06/2024 1:17 PM CDT [facility] [employer] LABORATORY-[facility] Microscopic Description The final diagnosis is based on microscopic examination of appropriate sections of all specimens. 04/06/2024 1:17 PM CDT [facility] [employer] [facility] Additional Information Interpreted at [facility], Central Laboratory - [address], [place] [address] 04/06/2024 1:17 PM CDT [facility] Other (Duodenum Biopsy) 04/03/2024 10:45 AM CDT 04/04/2024 5:14 AM CDT Specimen (specimen) (Stomach Biopsy) 04/03/2024 10:45 AM CDT 04/04/2024 5:14 AM CDT Chan Jamison MD PATHOLOGY/CYTOLOGY [facility] [address] [place] [address], * ECHO TTE COMPLETE WO CONTRAST (03/16/2024 12:11 PM CDT) AORTIC VALVE MEAN PG 11 mmHg EJECTION FRACTION 68 % PEAK TR VELOCITY 2.8 m/s LVEDD 3.2 cm Anatomical Region Laterality Modality Ultrasound 03/16/2024 11:3 4 AM CDT Narrative 03/16/2024 12:35 PM CDT ECHOCARDIOGRAM MARTY RIVERA ? Accession#: ?? [id number] : ?1945 79 years Study Date: ?? 03/16/2024 11:34:22 AM Gender: F ?BP: ? 109/80 mmHg Height: 122.00 cm ?BSA: ?1.19 m? ? ? Weight: 46.00 kg ? Tech: ? MJS ? Referring MD: MEENA ROTHMAN Site: ? [facility] Reading Location: Mobile [facility] Patient Location: Inpatient. Procedure: 2D, Color Doppler and Spectral Doppler. Indication for study: New At-fib Cardiac Rhythm: Normal sinus.Study quality: Good. Final Impressions: 1. Normal left ventricular size, mildly increased wall thickness, normal global systolic function, calculated EF of 68 %. 2. The aortic valve is calcified, mild stenosis and trivial regurgitation. 3. The mitral valve is sclerotic, mild mitral regurgitation. 4. Moderately enlarged left and right atria. 5. The ascending aorta is dilated with a maximal diameter of 4.1 cm. 6. Trivial pericardial effusion. Chamber Sizes and Function Normal left ventricular size, mildly increased wall thickness, normal global systolic function, calculated EF of 68 %. No definite resting regional wall motion abnormality seen. Left atrial size is moderately enlarged. Right ventricular cavity size is normal, global systolic RV function is normal. The right atrium is moderately enlarged. The pulmonary artery is of normal size and origin. The sinus of Valsalva is normal sized. The ascending aorta is dilated. Valves, RV Pressures and Diastolic Function The aortic valve is calcified, mild stenosis and trivial regurgitation. The mitral valve is sclerotic, mild mitral regurgitation. Spectral Doppler shows Grade 1 pattern of LV diastolic filling. The tricuspid valve is normal in structure. Tricuspid regurgitation is mild regurgitation. The tricuspid regurgitant velocity is 2.8 m/s, the estimated right ventricular systolic pressure is 32 mmHg plus right atrial pressure. The pulmonic valve is normal. No pulmonary regurgitation. TTE images do not appear adequate for transcather intervention with patient supine. Masses, Effusion, Shunts There is trivial pericardial effusion. The inferior vena cava is not well visualized, respiratory size variation not well visualized. No left to right shunting was detected by limited color flow Doppler interrogation of the interatrial septum. MEASUREMENTS AND CALCULATIONS 2-D Measurements and LV Function: LVID (d) 3.2 cm Planimetered EF 68 % LVID (s) 1.9 cm LV FS% (2D) ? 42 % IVS (d) ??1.2 cm LVOT diameter ?? 2.0 cm LVPW (d) 1.2 cm HR ?80 bpm Ao Sinus 3.8 cm LA Vol index ?55 ml/m2 Asc Ao ?? 4.1 cm RV Max 4C (d) ?? 3.1 cm Diastology: Mitral ?Tissue Doppler E Peak 1.0 m/s ??e', Septum ? 0.07 m/s A Peak 1.3 m/s ??e', Lateral ?0.16 m/s E/A ?0.8 ?E/e' Average ?? 8.71 DT ? 310 msec Aortic Valve: Vmax ? 2.3 m/s ??CAMILA (V) ?? 2.25 cm? ? ? VTI ?0.48 m ?? CAMILA (I) ?? 2.37 cm? ? ? LVOT V max 1.6 m/s ??Max PG ?20 mmHg LVOT VTI ?? 0.35 m ?? Mean PG ?? 11 mmHg SV ? 113 ml ?? Dim Index 0.73 SV index ?? 95 ml/m? ? ? CO ?9.1 l/min ?CI ?7.6 l/min/m? ? ? Mitral Valve: MVA ?2.4 cm? ? ? MV P 1/2 90 msec Tricuspid Valve and estimated PA pressures: TR Vmax 2.8 m/s TAPSE 1.8 cm TR maxG 32 mmHg . This study was interpreted by an [facility] accredited facility. CC: HIM (med records) [facility], Med/Surg - IP [facility]. ??Final ?? Procedure Note Mehul Bowens MD - 03/16/2024 ECHOCARDIOGRAM MARTY RIVERA : 1945 79 years Study Date: 03/16/2024 11:34:22 AM Gender: F BP: 109/80 mmHg Height: 122.00 cm BSA: 1.19 m? ? ? Weight: 46.00 kg Tech: [facility] Referring MD: MEENA ROTHMAN Site: [facility] Reading Location: Mobile [facility] Patient Location: Inpatient. Procedure: 2D, Color Doppler and Spectral Doppler. Indication for study: New At-fib Cardiac Rhythm: Normal sinus.Study quality: Good. Final Impressions: 1. Normal left ventricular size, mildly increased wall thickness, normalglobal systolic function, calculated EF of 68 %. 2. The aortic valve is calcified, mild stenosis and trivialregurgitation. 3. The mitral valve is sclerotic, mild mitral regurgitation. 4. Moderately enlarged left and right atria. 5. The ascending aorta is dilated with a maximal diameter of 4.1 cm. 6. Trivial pericardial effusion. Chamber Sizes and Function Normal left ventricular size, mildly increased wall thickness, normalglobal systolic function, calculated EF of 68 %. No definite restingregional wall motion abnormality seen. Left atrial size is moderatelyenlarged. Right ventricular cavity size is normal, global systolic RVfunction is normal. The right atrium is moderately enlarged. The pulmonaryartery is of normal size and origin. The sinus of Valsalva is normalsized. The ascending aorta is dilated. Valves, RV Pressures and Diastolic Function The aortic valve is calcified, mild stenosis and trivial regurgitation.The mitral valve is sclerotic, mild mitral regurgitation. Spectral Dopplershows Grade 1 pattern of LV diastolic filling. The tricuspid valve isnormal in structure. Tricuspid regurgitation is mild regurgitation. Thetricuspid regurgitant velocity is 2.8 m/s, the estimated right ventricularsystolic pressure is 32 mmHg plus right atrial pressure. The pulmonicvalve is normal. No pulmonary regurgitation. TTE images do not appearadequate for transcather intervention with patient supine. Masses, Effusion, Shunts There is trivial pericardial effusion. The inferior vena cava is not wellvisualized, respiratory size variation not well visualized. No left toright shunting was detected by limited color flow Doppler interrogation ofthe interatrial septum. MEASUREMENTS AND CALCULATIONS 2-D Measurements and LV Function: LVID (d) 3.2 cm Planimetered EF 68 % LVID (s) 1.9 cm LV FS% (2D) 42 % IVS (d) 1.2 cm LVOT diameter 2.0 cm LVPW (d) 1.2 cm HR 80 bpm Ao Sinus 3.8 cm LA Vol index 55 ml/m2 Asc Ao 4.1 cm RV Max 4C (d) 3.1 cm Diastology: Mitral Tissue Doppler E Peak 1.0 m/s e', Septum 0.07 m/s A Peak 1.3 m/s e', Lateral 0.16 m/s E/A 0.8 E/e' Average 8.71 DT 310 msec Aortic Valve: Vmax 2.3 m/s CAMILA (V) 2.25 cm? ? ? VTI 0.48 m CAMILA (I) 2.37 cm? ? ? LVOT V max 1.6 m/s Max PG 20 mmHg LVOT VTI 0.35 m Mean PG 11 mmHg SV 113 ml Dim Index 0.73 SV index 95 ml/m? ? ? CO 9.1 l/min CI 7.6 l/min/m? ? ? Mitral Valve: MVA 2.4 cm? ? ? MV P 1/2 90 msec Tricuspid Valve and estimated PA pressures: TR Vmax 2.8 m/s TAPSE 1.8 cm TR maxG 32 mmHg . This study was interpreted by an [facility] accredited facility. CC: HIM (med records) [facility], Med/Surg - IP [facility]. Final Meena Rothman DO ECHO ORD * XR DXA BONE DENSITY 2 SITES (08/22/2007 12:50 PM TANK FILLER) Anatomical Region Laterality Modality Spine, HIPS, HIPL, HIPR Bone Den sitometry 08/22/2007 12:5 0 PM TANK FILLER Impressions 08/25/2007 9:48 AM TANK FILLER This patient's T-score meets the World Health Organization (WHO) criteria for osteoporosis at one or more measured sites (T-score -2.5 or below). ?? The risk of osteoporotic fracture increases approximately two-fold for each 1.0 SD decrease in T-score. This patient's bone mineral density is below the expected range for age when compared with healthy age-, sex-, and race-matched controls in at least one measured site (Z-score -2.0 or lower). ??This may warrant a more careful evaluation for diseases and conditions that may contribute to accelerated bone loss if clinically indicated. COMPARISON: ??Comparison with previous study dated 08/17/2005 shows: There was no statistically significant change in the bone mineral density in the spine. ??There was no statistically significant change in the bone mineral density in the left hip. ??There was no statistically significant change in the bone mineral density in the right hip. ?? Statistical significance is determined by the least significant change (LSC) for the scanner and operators at this facility. Comparison with baseline study dated 02/02/2000 shows: There was no statistically significant change in the bone mineral density in the spine. ??There was no statistically significant change in the bone mineral density in the left hip. ??There was a statistically significant decrease in the bone mineral density in the right hip. ?? Statistical significance is determined by the least significant change (LSC) for the scanner and operators at this facility. Please note: Advancing age is an independent risk factor from low bone mineral density for fragility fracture. In the hip the lowest significant T-score of the total hip or femoral neck is used. For comparison with previous studies L1 to L4 and the total hip are used because larger areas give better precision. If the BMD has increased or is stable compared to previous studies, the patient is responding satisfactorily according to the International Society for Clinical Densitometry (ISCD). General recommendations for follow-up studies for patients with abnormal bone mineral density: ??Typically one year after initiation or change in therapy is appropriate, with longer intervals once therapeutic effect is established. ??In conditions associated with rapid bone loss, such as glucocorticoid therapy, testing more frequently is appropriate. DXA scans are compared to prior studies for a patient only when the two (or more) studies were performed on the same scanner. ??It is not possible to compare data generated on one scanner to data from another because there are not standards in DXA equipment as there are in mammography and other areas of radiology. ??This applies even if the two scanners are made by the same chip mixing machine operator. Dear Medical Provider: We have made a few changes in the way we read and report the bone density studies. ??This is in response to the International Society for Clinical Densitometry (ISCD) having updated their official positions. The changes include: We will no longer use the greater trochanter for diagnosis, but only the total hip or femoral neck for hip regions of interest. The term ? osteopenia? is still used but ? low bone density? is preferred and will be the term we use in our reports. ??As before, people with low bone mass or density are not necessarily at high fracture risk. In females prior to menopause and in males younger than age 50 Z-scores, and not T-scores, are preferred. ??A Z-score of -2.0 or lower is defined as ? below the expected range for age.? ??A Z-score above -2.0 is ? within the expected range for age.? ??There was not as much guidance in this previously, and we had used a Z-score of -1.0 as ? unexpectedly low for age.? DEXA is now DXA The comparison to prior studies has not changed, but can be confusing. ?? We have determined the least significant change (LSC) for our facility. ?? This is done with the scanner and operators. ??This simply shows the variability of the test at our facility, so a number smaller than the LSC is not considered a real change. ??We report this as ? a statistically significant increase,? ? a statistically significant decrease,? or ? no statistically significant change.? ??This does not relate to clinical significance. ??Whether a change in bone density should warrant a change in therapy involves multiple factors. Read by Cara Laws MD. Body/Breast Radi[employer] Narrative 08/25/2007 9:48 AM TANK FILLER DXA BONE MINERAL DENSITY ??08/22/07 CLINICAL HISTORY: ??This is a 62-year-old female patient. RISK FACTORS FOR FRAGILITY FRACTURES THAT ARE INDEPENDENT FROM LOW BONE MINERAL DENSITY: ??Patient is a current smoker. RISK FACTORS FOR LOW BONE MINERAL DENSITY: ??The patient has estrogen deficiency. ??The patient has a history of low bone density based on a prior BMD study. ??The patient is currently taking or has taken the following medications in the last year: ??Medications for osteoporosis. TECHNIQUE: ??The patient was scanned on a [employer] scanner, fast array scan mode. ??The study was technically adequate but compromised by proliferative changes in the spine. ??The following sites were used for analysis: ??PA lumbar spine: ??L1 to L4, ??Right hip: ??Femoral neck, ??Left hip: ??Femoral neck. FINDINGS: BMD T-Score Z-Score Lumbar Spine (L1 to L4) 0.827 g/cm2 -2.9 -1.3 Right Hip (Femoral neck) 0.650 g/cm2 -3.2 -1.5 Left Hip (Femoral neck) 0.660 g/cm2 -3.2 -1.4 Procedure Note Cara Laws MD - 08/26/2007 DXA BONE MINERAL DENSITY 08/22/07 CLINICAL HISTORY: This is a 62-year-old female patient. RISK FACTORS FOR FRAGILITY FRACTURES THAT ARE INDEPENDENT FROM LOW BONEMINERAL DENSITY: Patient is a current smoker. RISK FACTORS FOR LOW BONE MINERAL DENSITY: The patient has estrogendeficiency. The patient has a history of low bone density based on aprior BMD study. The patient is currently taking or has taken thefollowing medications in the last year: Medications for osteoporosis. TECHNIQUE: The patient was scanned on a [employer] scanner, fastarray scan mode. The study was technically adequate but compromised byproliferative changes in the spine. The following sites were used foranalysis: PA lumbar spine: L1 to L4, Right hip: Femoral neck, Lefthip: Femoral neck. FINDINGS: BMD T-Score Z-Score Lumbar Spine (L1 to L4) 0.827 g/cm2 -2.9 -1.3 Right Hip (Femoral neck) 0.650 g/cm2 -3.2 -1.5 Left Hip (Femoral neck) 0.660 g/cm2 -3.2 -1.4 IMPRESSION: This patient's T-score meets the World Health Organization (WHO) criteriafor osteoporosis at one or more measured sites (T-score -2.5 or below).The risk of osteoporotic fracture increases approximately two-fold foreach 1.0 SD decrease in T-score. This patient's bone mineral density is below the expected range for agewhen compared with healthy age-, sex-, and race-matched controls in atleast one measured site (Z-score -2.0 or lower). This may warrant a morecareful evaluation for diseases and conditions that may contribute toaccelerated bone loss if clinically indicated. COMPARISON: Comparison with previous study dated 08/17/2005 shows: There was no statistically significant change in the bone mineral densityin the spine. There was no statistically significant change in the bonemineral density in the left hip. There was no statistically significantchange in the bone mineral density in the right hip. Statistical significance is determined by the least significant change(LSC) for the scanner and operators at this facility. Comparison with baseline study dated 02/02/2000 shows: There was no statistically significant change in the bone mineral densityin the spine. There was no statistically significant change in the bonemineral density in the left hip. There was a statistically significantdecrease in the bone mineral density in the right hip. Statistical significance is determined by the least significant change(LSC) for the scanner and operators at this facility. Please note: Advancing age is an independent risk factor from low bone mineral densityfor fragility fracture. In the hip the lowest significant T-score of the total hip or femoral neckis used. For comparison with previous studies L1 to L4 and the total hip are usedbecause larger areas give better precision. If the BMD has increased or is stable compared to previous studies, thepatient is responding satisfactorily according to the InternationalSociety for Clinical Densitometry (ISCD). General recommendations for follow-up studies for patients with abnormalbone mineral density: Typically one year after initiation or change intherapy is appropriate, with longer intervals once therapeutic effect isestablished. In conditions associated with rapid bone loss, such asglucocorticoid therapy, testing more frequently is appropriate. DXA scans are compared to prior studies for a patient only when the two(or more) studies were performed on the same scanner. It is not possibleto compare data generated on one scanner to data from another becausethere are not standards in DXA equipment as there are in mammography andother areas of radiology. This applies even if the two scanners are madeby the same chip mixing machine operator. Dear Medical Provider: We have made a few changes in the way we read and report the bone densitystudies. This is in response to the International Society for ClinicalDensitometry (ISCD) having updated their official positions. The changes include: We will no longer use the greater trochanter for diagnosis, but only thetotal hip or femoral neck for hip regions of interest. The term ? osteopenia? is still used but ? low bone density? is preferredand will be the term we use in our reports. As before, people with lowbone mass or density are not necessarily at high fracture risk. In females prior to menopause and in males younger than age 50 Z-scores,and not T-scores, are preferred. A Z-score of -2.0 or lower is defined as? below the expected range for age.? A Z-score above -2.0 is ? within theexpected range for age.? There was not as much guidance in thispreviously, and we had used a Z-score of -1.0 as ? unexpectedly low forage.? DEXA is now DXA The comparison to prior studies has not changed, but can be confusing. Wehave determined the least significant change (LSC) for our facility. Thisis done with the scanner and operators. This simply shows the variabilityof the test at our facility, so a number smaller than the LSC is notconsidered a real change. We report this as ? a statistically significantincrease,? ? a statistically significant decrease,? or ? no statisticallysignificant change.? This does not relate to clinical significance.Whether a change in bone density should warrant a change in therapyinvolves multiple factors. Read by Cara Laws MD. [facility] Tika Clancy MD DEXA from Last 3 Months or Most Recently Relevant to Health Maintenance Advance Directives * Full Code (Latest Code Status on File) Date Activated Date Inactivated Comments 06/07/2020 9:32 AM 06/07/2020 3:05 PM Question Answer Comments Code Status Discussion: Per Advance Care Plan * Full Code Date Activated Date Inactivated Comments 04/19/2020 7:53 AM 04/19/2020 12:30 PM Care Teams Dust Handler Relationship Specialty Start Date End Date Pcp, No . PCP - General 05/07/23
--- OUTSIDE RECORDS SUMMARY | 2024-04-10 14:58 | XMS_ITS | Encounter Summary ---
Author Organization [facility] Address [address] [place] [id number] Care Team Providers Care Enlisted Advisor Name Role Phone Tia Oakes MD Unavailable [phone] Lavonne Hays APRN, CNP Primary Care Provider Belen vailable Lavonne Hays APRN, CNP Unavailable Unavailab Tia Darling MD Unavailable [phone] Lavonne Hays APRN MEDICINE TECH Unavailable Unavailab Alejandro Florence MD Unavailable [phone] Lavonne Hays APRN MEDICINE TECH Unavailable Unavailab [facility] Unavailable Encounter Details Date Type Department [...] documented as of this encounter Care Teams Enlisted Advisor Relationship Specialty Start Date End Date Lavonne Hays APRN MEDICINE TECH [address] [place] [id number] PCP - General Internal Medicine 05/19/21 12/18/23 Tia Oakes MD [address] [address] Assigned PCP 04/21/21 06/10/21 Lavonne Hays APRN MEDICINE TECH NO INFO AVAILABLE 04/29/2023 Assigned PCP 06/11/21 10/14/21 Tia Oakes MD [address] [place] [id number] Assigned PCP 10/15/21 12/16/21 Lavonne Hays APRN MEDICINE TECH NO INFO AVAILABLE 04/29/2023 Assigned PCP 12/17/21 12/07/22 Alejandro Singer MD [address] [address] Assigned PCP 12/08/22 04/19/23 Lavonne Hays APRN MEDICINE TECH NO INFO AVAILABLE 04/29/2023 Assigned PCP 04/20/23 10/30/23 [facility] [address] [address] Assigned PCP 10/31/23 documented as of this encounter
--- OUTSIDE RECORDS SUMMARY | 2024-04-10 14:58 | XMS_ITS ---
Author Organization [facility] Address [address] [place] [address] Care Team Providers Care Fleet Service Clerk Name Role Phone Unavailable Unavailable Unavailable Surgery Details Not on file Complications Check Surgery Details section. Procedure Estimated Blood Loss Check Surgery Details section. Procedure Findings Check Surgery Details section. Procedure Specimens Taken Check Surgery Details section.
--- OUTSIDE RECORDS SUMMARY | 2024-04-10 14:58 | XMS_ITS | Referral Summary ---
Author Organization [facility] Address [address] [place] [address] Care Team Providers Care Mushroom Laborer Name Role Phone Erinn Reina M.D. Primary Care Provider Source Comments Patient records contain information from all sites at [facility]. For routine questions regarding patient records, call [phone] during business hours, M-F 8:00 AM - 5:00 PM Central Time. Record requests for emergency care only can be directed to [phone] at any time.[facility] Encounters Date Type Department Care Team Description 04/10/2024 10:50 AM CDT Hospital Encounter Department of Laboratory Medicine in [place], [place] [address] [phone] Vitor Calle M.D. Hypertension Pulmonary (HCC); Dyspnea On Exertion 04/10/2024 9:30 AM CDT Office Visit Department of Cardiovascular Diseases in [place], [place] [address] [place] [phone] Vitor Calle M.D. Hypertension Pulmonary (HCC) (Primary Dx); Dyspnea On Exertion 03/19/2024 Clinical Communication [facility] in [place], [place] [address] [place] [address] Arjun Umana M.D. EMILY 03/10/2024 9:15 AM CDT Clinical Support Department of Physical Medicine and Rehabilitation in [place], [place] [address] [place] [address] Rod Collins M.D. Ambroz, Colleen P, P.TAnn-Marie Pain Low Back Unspecified (Primary Dx); Osteoporosis; Pain Back 03/04/2024 1:30 PM CDT Office Visit Division of Pulmonary Medicine in [place], [place] [address] [place] [address] Arjun Umana M.D. Chronic Obstructive Pulmonary Disease (HCC) (Primary Dx); Hypertension Pulmonary (HCC); Chronic Right Heart Failure (HCC); Nicotine Dependence Cigarettes; Abdominal Pain 02/19/2024 Clinical Communication Division of Pulmonary Medicine in [place], [place] [address] [place] [address] Seun Bey M.D. Xcell energy form 02/18/2024 10:45 AM CDT Comprehensive Visit Department of Physical Medicine and Rehabilitation in [place], [place] [address] [place] [address] Rod Collins M.D. Ambroz, Colleen P, P.T. Pain Back (Primary Dx); Osteoporosis; Pain Low Back Unspecified 02/05/2024 Orders Only Division of Endocrinology in [place], [place] [address] [place] [phone] Rod Collins M.D. Osteoporosis (Primary Dx); Pain Low Back Unspecified; Pain Back 02/04/2024 Clinical Communication Division of Endocrinology in [place], [place] [address] [place] [address] Rod Collins M.D. 02/04/2024 10:00 AM CDT Clinical Support Department of Physical Medicine and Rehabilitation in [place], [place] [address] [place] [address] Tony Schwartz P.A.-C. Ambroz, Colleen P, P.T. Fibromyalgia (Primary Dx); Pain Low Back Unspecified 02/01/2024 Orders Only Division of Endocrinology in [place], [place] [address] [place] [address] Rod Collins M.D. Anemia Iron Deficiency (Primary Dx); Osteoporosis 01/29/2024 Clinical Communication Department of Family Medicine, [facility], in [place], [place] [address] [place] [address] Erinn Reina M.D. 01/29/2024 10:45 AM CDT Clinical Support Department of Physical Medicine and Rehabilitation in [place], [place] [address] [place] [phone] Tony Schwartz P.A.-C. Ambroz, Colleen P, P.T. Fibromyalgia (Primary Dx); Pain Low Back Unspecified 01/28/2024 9:00 AM CDT Comprehensive Visit Division of Endocrinology in [place], [place] [address] [place] [address] Jesus Feng APRN, C.N.P. Toro Tobon, David, M.D. Osteoporosis (Primary Dx); Pain Back; Fracture Vertebra Compression Thoracic Closed Initial (HCC) 01/17/2024 12:45 PM CDT Clinical Support Department of Physical Medicine and Rehabilitation in [place], [place] [address] [place] [phone] Tony Schwartz P.A.-C. Ambroz, Colleen P, P.T. Fibromyalgia (Primary Dx); Pain Low Back Unspecified 01/15/2024 11:30 AM CDT - 01/15/2024 11:59 PM CDT Hospital Encounter Department of Laboratory Medicine in [place], [place] [address] [place] [address] Vitor Calle M.D. Dyspnea Multifactorial; Anemia Iron Deficiency Discharge Disposition: Home or Self Care from Last 3 Months Allergies Active Allergy Reactions Criticality Noted Date Comments Alendronic Acid GI intolerance 09/25/2016 Upset stomach Azithromycin Nausea And Vomiting 10/28/2018 Codeine Rash 10/28/2018 Erythromycin Nausea And Vomiting 10/28/2018 Penicillins Shortness of breath (Reselect Reaction) High 04/06/2011 Tetanus Toxoid Shortness of breath (Reselect Reaction) 04/06/2011 Dizzy spells, faint Medications Medication Sig Dispensed Refills Start Date End Date Status fexofenadine-pseud oephedrine (JIHAN-D 24) 180-240 mg per 24 hr tablet Take 1 tablet by mouth daily as needed for allergies or rhinitis. Active BEVACIZUMAB VTRE by intravitreal route. Eye injections by MD as directed Active acetaminophen (TYLENOL) 500 mg tablet Take 2 tablets (1,000 mg total) by mouth every 6 (six) hours as needed for pain (Purchase over the counter. First line for pain.). 9 Active DME Oxygen Inhale. DME Order Patient stated she uses 02 at night with 2L Active torsemide (DEMADEX) 20 mg tablet Take 20 mg by mouth daily. 3 Active ipratropium-albute roL (DUONEB) 0.5-2.5 mg/3 mL nebulizer solution Inhale 3 mL by nebulization 4 (four) times a day as needed for wheezing or shortness of breath. 180 mL 2 3 Active fluticasone propionate (FLONASE) 50 mcg/actuation nasal sprayIndications:Jayden webb Post Infectious (Cough Subacute) SHAKE LIQUID AND USE 2 SPRAYS IN EACH NOSTRIL DAILY 48 g 3 3 Active aspirin [address] tablet Take 1 tablet (81 mg total) by mouth daily. 90 tablet 3 4 10/08/19 25 Active rosuvastatin (CRESTOR) 10 mg tablet Take 1 tablet (10 mg total) by mouth daily. 90 tablet 3 4 10/08/19 25 Active fluticasone-umecli dinium-vilanterol (Trelegy Ellipta) 100-62.5-25 mcg/actuation inhalerIndications :Chronic Obstructive Pulmonary Disease Moderate (HCC) Inhale 1 puff once daily. 60 each 11 4 Active Ventolin HFA 90 mcg/actuation inhalerIndications :Chronic Obstructive Pulmonary Disease (HCC),Dyspnea Multifactorial Inhale 2 puffs every 4 (four) hours as needed for wheezing or shortness of breath. 18 g 11 4 11/07/19 25 Active spironolactone (ALDACTONE) 25 mg tablet Take 0.5 tablets (12.5 mg total) by mouth daily. 45 tablet 1 4 Active calcium citrate (CALCITRATE) 950 mg (200 mg calcium) tablet Take 2 tablets (400 mg of calcium total) by mouth daily with breakfast. 180 tablet 3 4 01/28/20 25 Active senna 8.6 mg tablet as needed. 4 Active Klor-Con M20 20 mEq ER tablet Take 1 tablet by mouth daily. 4 Active miscellaneous medical supply (Blood Pressure Cuff) [facility] One sphygmomanometer , 1 unit; use as directed 1 each 4 Active DULoxetine (CYMBALTA) [address] capsule Take 30 mg by mouth daily. 1 04/10/20 24 Discontinued lidocaine (LIDODERM) 5 % Place 1 patch on the skin daily. 3 04/10/20 24 Discontinued Hospital, Clinic, or Other Facility Administered Medication [...] 30- 60py cumulative smoking history. Her primary dinkey driver is Dr. Thorpe. In Nov 2021, she [...] often do you attend chur ch or shinto services? 1 to 4 times [...] Answer Date Recorded PHQ-2 Score 1 [facility] Answer Date Recorded [...] your living situation today? I have a [facility] place to live 04/10/2023 Education Answer Date Recorded What is the highest level of school you have completed or the highest degree you have received? 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 Gender Identity Female 02/10/2019 11:51 AM CDT Sexual Orientation Straight 02/10/2019 11 :51 AM CDT Last Filed Vital Signs Vital Sign Reading Time Taken Comments Blood Pressure 112/62 04/10/2024 10:01 AM CDT Pulse 114 04/10/2024 10:01 AM CDT Temperature 36.6 ??C (97.8 ??F) 04/10/2024 1 0:00 AM CDT Respiratory Rate 18 12/03/2022 3:20 PM ASSOCIATE MUSIC PROFESSOR Oxygen Saturation 73% 03/04/2024 1:1 4 PM CDT No on O2, but O2 set at 2L, she had just used the bathroom before coming back Inhaled Oxygen Concentration - - Weight 43.1 kg (95 lb 0.3 oz) 04/10/2024 10:00 AM CDT Height 150.7 cm (4' 11.33) 03/04/2024 1:14 PM CDT Body Mass Index 18.98 03/04/2024 1:14 PM CDT Plan of Treatment Upcoming Encounters Date Type Department Care Team (Latest Contact Info) Description 04/14/2024 12:45 PM CDT Clinical Support Department of Physical Medicine and Rehabilitation in [place], [place] [address] [place] [address] Rod Collins M.D. [address] [place] [phone] Elana Winters P, P.T. [address] [place] [phone] 04/21/2024 12:45 PM CDT Clinical Support Department of Physical Medicine and Rehabilitation in [place], [place] [address] [place] [address] Rod Collins M.D. [address] [place] [phone] Elana Winters P, P.T. [address] [place] [phone] 04/28/2024 12:45 PM CDT Clinical Support Department of Physical Medicine and Rehabilitation in [place], [place] [address] [place] [address] Rod Collins M.D. [address] [place] [phone] Elana Winters P, P.T. [address] [place] [phone] 05/11/2024 8:30 AM CDT Appointment Department of Radiology, [facility], in [place], [place] [address] [place] [phone] Tony Schwartz P.A.-C. [address] [place] [phone] Discharge Disposition: Home or Self Care 05/11/2024 11:00 AM CDT Appointment Department of Laboratory Medicine and Pathology, [facility] in [place], [place] [address] [place] [address] Tony Schwartz P.A.-C. [address] [place] [phone] 05/11/2024 12:15 PM CDT Appointment Department of Radiology, [facility] in [place], [place] [address] [place] [address] Tony Schwartz P.A.-C. [address] [place] [phone] 05/11/2024 2:45 PM CDT Appointment Department of Radiology, [facility] in [place], [place] [address] [place] [address] Tony Schwartz P.A.-C. [address] [place] [phone] 05/12/2024 4:00 PM CDT Office Visit Department of Vascular Medicine in [place], [place] [address] [place] [address] Tony Schwartz P.A.-C. [address] [place] [phone] 05/28/2024 10:45 AM CDT Office Visit Department of Cardiovascular Diseases in [place], [place] [address] [place] [phone] Vitor Calle M.D. [address] [place] [phone] Medical Devices Implanted Type Area Transmission Calibration Engineer Device Identifier Shelf Expiration Date Model / Serial / Lot Stnt Visi Pro Otw [id number] - [id number] Implanted:Qt y: 1 on 05/04/2019 by Tyson Liao M.D. at [facility] Biliary Stent N/A: Arterial Medtronic 09/24/2019 [id number] / / [id number] Description:SMA #2 Stnt Visi Pro Otw [id number] - [id number] Implanted:Qt y: 1 on 05/04/2019 by Tyson Liao M.D. at [facility] Biliary Stent Right: Arterial Medtronic 03/23/2021 [id number] / / [id number] Description:Celiac Artery #2 Hip Implant-2023 Implanted: (Quantity not on file) Hip Implant Hip Stnt Icast Atrm Cov [id number] - [id number] - [id number] Implanted:Qt y: 1 on 05/04/2019 by Tyson Liao M.D. at [facility] Respiratory Stent Right: Arterial Atrium 02/18/2022 [id number] / [id number] / Description:Right Renal Emma ry Stnt Icast Atrm Cov [id number] - [id number] - [id number] Implanted:Qt y: 1 on 05/04/2019 by Tyson Liao M.D. at [facility] Respiratory Stent Right: Arterial Atrium 02/06/2022 [id number] / [id number] / Description:Left renal arter y Stnt Icast Atrm Cov [id number] - [id number] - [id number] Implanted:Qt y: 1 on 05/04/2019 by Tyson Liao M.D. at [facility] Respiratory Stent Right: Arterial Atrium 03/27/2022 [id number] / [id number] / Description:SMA Stnt Icast Atrm Cov [id number] - [id number] - [id number] Implanted:Qt y: 1 on 05/04/2019 by Tyson Liao M.D. at [facility] Respiratory Stent Right: Arterial Atrium 01/29/2022 [id number] / [id number] / Description:Left renal arter y Stnt Icast Atrm Cov [id number] - [id number] - [id number] Implanted:Qt y: 1 on 05/04/2019 by Tyson Liao M.D. at [facility] Respiratory Stent Right: Arterial Atrium 03/27/2022 [id number] / [id number] / Description:Celiac Artery Mjp-Rziwzh-W enestrated-P natali Stent Graft Implanted:Qt y: 1 on 05/04/2019 by Tyson Liao M.D. at [facility] Stent Other N/A: Aorta [employer] [id number] 03/23/2022 [id number] / / [id number] Aaa-Bifurcat ed-Graft Implanted:Qt y: 1 on 05/04/2019 by Tyson Liao M.D. at [facility] Stent Other N/A: Aorta [employer] [id number] 03/17/2022 [id number] / / [id number] Grft Znt Ilc Ext [id number] - [id number] Implanted:Qt y: 1 on 05/04/2019 by Tyson Liao M.D. at [facility] Vascular Graft Left: Arterial [employer] 12/02/2021 [id number] / / [id number] Description:Left Iliac Stnt Innova Otw [id number] - [id number] Implanted:Qt y: 1 on 05/04/2019 by Tyson Liao M.D. at [facility] Vascular Stent Right: Arterial Oncope[employer] 11/03/2020 [id number] / / [id number] Description:Right Renal Emma ry Procedures Procedure Name Priority Date/Time Associated Diagnosis Comments ECG Routine 04/10/2024 10:51 AM CDT Hypertension Pulmonary (HCC) Dyspnea On Exertion EXTI POTASSIUM, S/P Routine 03/26/2024 6:42 AM CDT CARE EVERYWHERE UNMAPPED LAB RESULT Routine 03/19/2024 8:49 AM CDT ARTERIAL BLOOD GAS - PULMONARY CLINIC Routine 03/04/2024 2:42 PM CDT Chronic Obstructive Pulmonary Disease (HCC) TISSUE TRANSGLUTAMINASE (TTG) AB, IGA, S Routine 01/28/2024 10:16 AM CDT CO T4 FREE Routine 01/28/2024 10:16 AM CDT [...] Routine 01/15/2024 11:41 AM CDT Dyspnea Multifactorial BI BREAST SCREENING BILATERAL WITH TOMOSYNTHESIS Routine 09/16/2019 10:48 AM ASSOCIATE MUSIC PROFESSOR CT CHEST WITHOUT IV CONTRAST Routine 08/2019 10:02 AM ASSOCIATE MUSIC PROFESSOR from Last 3 Months or Most Recently Relevant to Health Maintenance Results * ECG 12 Lead (04/10/2024 10:51 AM CDT) Ventricular Rate ECG/Min 85 BPM MUSE CO Interval 136 ms MUSE QRSD Interval 114 ms MUSE QT Interval 358 ms MUSE QTC Interval 426 ms MUSE P Donner 57 degrees MUSE R Donner 269 degrees MUSE T Wave Donner 31 degrees MUSE 04/10/2024 10:5 1 AM CDT 04/10/2024 11:03 AM CDT Impressions MUSE - 04/10/2024 11:03 AM CDT Normal sinus rhythm with sinus arrhythmia Biatrial enlargement Incomplete right bundle branch block Nonspecific ST and T wave abnormality When compared with ECG of 09-Oct-2023 08:57, Premature supraventricular complexes are no longer present Reviewed by JAIME Robin Narrative Procedure Note Cynthia Louis M.D., Ph.D. - 04/10/2024 IMPRESSION: Normal sinus rhythm with sinus arrhythmia Biatrial enlargement Incomplete right bundle branch block Nonspecific ST and T wave abnormality When compared with ECG of 09-Oct-2023 08:57, Premature supraventricular complexes are no longer present Reviewed by JAIME Robin Vitor Calle M.D. ECG ORDERABLES MUSE NA * (ABNORMAL) Arterial Blood Gas - Pulmonary [...] CDT Arjun Umana M.D. LAB BLOOD ADD-ON [facility] [address] [place] [address], [facility] [address] [place] [address] * Quantitative M-protein Study (01/28/2024 10:16 AM [...] AM CDT 01/28/2024 2:02 PM CDT Narrative [facility] - 01/29/2024 12:53 PM CDT Specimen Information: Specimen ID: [id number] Specimen Type: Blood Specimen Collection Start Date: 01/28/2024 10:16 AM Specimen Received Date: 01/28/2024 ??2:02 PM Specimen ID: [id number] Specimen Type: Blood Specimen Collection Start Date: 01/28/2024 10:16 AM Specimen Received Date: 01/28/2024 ??1:55 PM Rod Perales M.D. LAB BLOOD ADD-ON [facility] [address] [place] [address] [facility] [address] [place] [address] [facility] [address] [place] [address] [place] [address] * T4 (Thyroxine), Free, Serum (01/28/2024 10:16 AM CDT) T4 (Thyroxine), Free, S 1.0 0.9 - 1.7 ng/dL 01/28/2024 11:30 AM CDT DT Blood 01/28/2024 10:1 6 AM CDT 01/28/2024 10:42 AM CDT Rod Perales M.D. LAB BLOOD ADD-ON Performing Organization Address City/[facility]/ZIP Co de Phone Number [facility] [address] [place] [address] * (ABNORMAL) Thyroid Function [place] (01/28/2024 10:16 AM CDT) TSH, Sensitive 4.4(H) 0.3 - 4.2 mIU/L 01/28/2024 11:09 AM CDT DT Blood (Blood, Venous) 01/28/2024 10:16 AM CDT 01/28/2024 10:42 AM CDT Rod Perales M.D. LAB BLOOD ADD-ON [facility] [address] [place] [address] * Celiac Disease Serology [place] (01/28/2024 10:16 AM CDT) Immunoglobulin A (IgA), S 304 61 - 356 mg/dL 01/28/2024 2:56 PM CDT [facility] Celiac Disease Interpretation See Comment: Negative serology. Celiac disease unlikely. However, approximately 10% of patients with celiac disease are seronegative. Also, patients who are already adhering to a gluten-free diet may be seronegative. If celiac disease is highly clinically suspected, consider HLA-DQ typing. 01/28/2024 9:15 PM CDT [facility] Blood (Blood, Venous) 01/28/2024 10:16 AM CDT 01/28/2024 2:02 PM CDT Narrative [facility] - 01/28/2024 9:15 PM CDT Specimen Information: Specimen ID: [id number] Specimen Type: Blood Specimen Collection Start Date: 01/28/2024 10:16 AM Specimen Received Date: 01/28/2024 ??2:02 PM Specimen ID: [id number] Specimen Type: Blood Specimen Collection Start Date: 01/28/2024 10:16 AM Specimen Received Date: 01/28/2024 ??2:00 PM Rod Perales M.D. LAB BLOOD ADD-ON [facility] [address] [place] [address] [facility] [address] [place], [place] [phone] [place] [address] [address] [facility] [place] [address] * Thyroperoxidase (TPO) Antibodies (01/28/2024 10:16 AM CDT) Thyroperoxidase Ab, S 18.5 <34.0 IU/mL 01/28/2024 11:30 AM CDT DT Blood 01/28/2024 10:1 6 AM CDT 01/28/2024 10:42 AM CDT Rod Perales M.D. LAB BLOOD ADD-ON [facility] [address] [place] [address], [facility] DTL [facility] [address] [place] [address] * tTG (Tissue Transglutaminase), Antibody, IgA (01/28/2024 10:16 AM CDT) Tissue Transglutaminase Ab, IgA, S <1.2 <4.0 (Negative ) U/mL 01/28/2024 6:42 PM CDT [facility] Blood 01/28/2024 10:1 6 AM CDT 01/28/2024 3:19 PM CDT Rod Perales M.D. LAB BLOOD ADD-ON [facility] [address] [place] [address] [facility] [address] [place] [address] * Connective Tissue Diseases [place] (01/28/2024 10:16 AM CDT) Antinuclear Ab, S 0.1 <=1.0 (Negative ) U 01/28/2024 7:56 PM CDT [facility] Comment: ----ADDITIONAL INFORMATION---- Method: Enzyme-linked immunoassay using HEp-2 nuclear extract supplemented with purified antigens. Cyclic Citrullinated Peptide Ab, S <15.6 <20.0 (Negative ) U 01/28/2024 6:40 PM CDT [facility] Interpretation SEE COMMENT 7:56 PM CDT [facility] Comment: Tests for antibodies to dsDNA and [...] M.D. LAB BLOOD ADD-ON Performing Organization Address City/[facility]/ZIP Co de Phone Number [facility] [address] [place] [address] [facility] [address] [place] [address] * (ABNORMAL) 25-Hydroxyvitamin D2 and D3 (01/28/2024 10:16 AM CDT) 25-Hydroxy D2 <4.0 ng/mL 01/30/2024 9:01 AM CDT [facility] 25-Hydroxy D3 18 ng/mL 01/30/2024 9:01 AM CDT [facility] 25-Hydroxy D Total 18(L) ng/mL 2023 9:01 AM CDT [facility] Comment: Interpretation: 10-19 ng/mL (mild to moderate [...] M.D. LAB BLOOD ADD-ON Performing Organization Address City/[facility]/ZIP Co de Phone Number [facility] [address] [place] [address] [place] [address] [place] [address] * Dehydroepiandrosterone Sulfate (DHEA-S) (01/28/2024 10:16 AM CDT) Dehydroepiandrosterone Sulfate, S 72 5.3 - 124 mcg/dL 01/28/2024 3:53 PM CDT [facility] Blood (Blood, Venous) 01/28/2024 10:16 AM CDT 01/28/2024 2:58 PM CDT Rod Perales M.D. LAB BLOOD ADD-ON [facility] [address] [place] [address] [facility] [address] [place] [address] * Sedimentation Rate (01/28/2024 10:16 AM CDT) Sedimentation Rate, B 8 3 - 28 mm/h 01/28/2024 11:48 AM CDT DTL Blood (Blood, Venous) 01/28/2024 10:16 AM CDT 01/28/2024 10:30 AM CDT Rod Perales M.D. LAB BLOOD ADD-ON [facility] [address] [place] [address], [facility] [address] [place] [address] * (ABNORMAL) CBC with Differential, Blood (01/28/2024 [...] BLOOD ADD-ON [facility] [address] [place] [address], [facility] DTL [facility] [address] [place] [address] [facility] [address] [place] [address] * Rheumatoid Factor (01/28/2024 10:16 AM CDT) Pathologist [facility] Rheumatoid Factor, S <15 <15 IU/mL 01/28/2024 3:40 PM CDT [facility] Blood (Blood, Venous) 01/28/2024 10:16 AM CDT 01/28/2024 3:01 PM CDT Rod Perales M.D. LAB BLOOD ADD-ON [facility] [address] [place] [address] [facility] [address] [place] [address] * CRP (C-Reactive Protein) (01/28/2024 10:16 AM CDT) C-Reactive Protein (CRP), S <3.0 <5.0 mg/L 01/28/2024 11:09 AM CDT [facility] Blood (Blood, Venous) 01/28/2024 10:16 AM CDT 01/28/2024 10:42 AM CDT Rod Perales M.D. LAB BLOOD ADD-ON Performing Organization Address City/[facility]/[place] [address] * Ferritin (01/28/2024 10:16 AM CDT) Only the most recent of2 resultswithin the time period is included. Ferritin, S 262 11 - 328 mcg/L 01/28/2024 11:09 AM CDT DT Blood (Blood, Venous) 01/28/2024 10:16 AM CDT 01/28/2024 10:42 AM CDT Rod Perales M.D. LAB BLOOD ADD-ON Performing Organization Address City/[facility] Co de Phone Number [facility] [address] [place] [address] * CK (Creatine Kinase) (01/28/2024 10:16 AM CDT) Creatine Kinase (CK), S 116 26 - 192 U/L 01/28/2024 11:09 AM CDT DT Blood (Blood, Venous) 01/28/2024 10:16 AM CDT 01/28/2024 10:42 AM CDT Rod Perales M.D. LAB BLOOD ADD-ON [facility] [address] [place] [address] * Cortisol (01/28/2024 10:16 AM CDT) Cortisol, Random, S 12 mcg/dL 01/28/2024 11:09 AM CDT DT Comment: ----REFERENCE VALUE---- AM ([id number]): 4.8-20 PM ([id number]): 2.5-12 Blood (Blood, Venous) 01/28/2024 10:16 AM CDT 01/28/2024 10:42 AM CDT Rod Perales M.D. LAB BLOOD ADD-ON [facility] [address] [place] [address], [facility] [address] [place] [address] * (ABNORMAL) Comprehensive Metabolic Panel (01/28/2024 10:16 [...] M.D. LAB BLOOD ADD-ON Performing Organization Address City/[facility]/ZIP Co de Phone Number [facility] [address] [place] [address], [facility] [address] [place] [address] * NT-Pro B-Type Natriuretic Peptide (BNP) (01/15/2024 [...] CDT Vitor Calle M.D. LAB BLOOD ADD-ON [facility] [address] [place] [address], [place] [facility] [place] [address] [place] [address] * (ABNORMAL) Iron and Total Iron-Binding Capacity [...] CDT Tony Schwartz P.A.-C. LAB BLOOD ADD-ON [facility] [address] [place] [address], [facility] - [facility] [address] [place] [address] * Sodium (01/15/2024 11:41 AM CDT) Sodium, P 139 135 - 145 mmol/L 01/15/2024 2:15 PM CDT OWAT Blood (Blood, Venous) 01/15/2024 11:41 AM CDT 01/15/2024 1:31 PM CDT Vitor Calle M.D. LAB BLOOD ADD-ON [facility] [address] [place] [address], [facility] [place] [address] [place] [address] * Potassium (01/15/2024 11:41 AM CDT) Potassium, P 4.5 3.6 - 5.2 mmol/L 01/15/2024 2:15 PM CDT OWAT Blood (Blood, Venous) 01/15/2024 11:41 AM CDT 01/15/2024 1:31 PM CDT Vitor Calle M.D. LAB BLOOD ADD-ON [facility] [address] [place] [address], [place] [facility] [facility] [place] [address] [place] [address] * Creatinine with Estimated GFR (01/15/2024 11:41 AM CDT) Creatinine 0.72 0.59 - 1.04 mg/dL 01/15/2024 2:15 PM CDT OWAT Estimated GFR (eGFR) 86 >=60 mL/min/BSA 01/15/2024 2:15 PM CDT OWAT Comment: Estimated GFR calculated using the 2020 CKD_EPI creatinine equation. Blood (Blood, Venous) 01/15/2024 11:41 AM CDT 01/15/2024 1:31 PM CDT Vitor Calle M.D. LAB BLOOD ADD-ON Performing Organization Address City/[facility]/ZIP Co de Phone Number [facility] [address] [place] [address], [place] [facility] [place] [address], [place] [address] from Last 3 Months or Most Recently Relevant to Health Maintenance Advance Directives For more information, please contact: [phone] Documents on File Type Date Recorded Patient Crystal Grower Expl anation Advance Directives 02/06/2024 9:39 AM [...] Answer Comments Full Code: Discussed Care Teams Mushroom Laborer Relationship Specialty Start Date End Date Erinn Reina M.D. [address] [place] [address] [place] [phone] PCP - General Family Medicine 09/08/21
--- OUTSIDE RECORDS SUMMARY | 2024-04-10 14:58 | XMS_ITS | Encounter Summary ---
Author Organization [facility] Address [address] [place] [address] Care Team Providers Care Optical Store Manager Name Role Phone Erinn Reina M.D. Primary Care Provider Reason for Referral * Outpatient (Routine) - Closed Specialty Diagnoses / Procedures Referred By Osorio guevara Referred To Contact Diagnoses Hypertension Pulmonary (HCC) Dyspnea On Exertion Procedures ECG 12 Lead Vitor Calle M.D. [address] [place] [address] [facility] Region Referral ID Status Reason Start Date Expiration Date Visits Re quested Visits Authorized [id number] Closed 04/10/2024 04/10/2025 1 1 Reason for Visit * Outpatient (Routine) - Closed Specialty Diagnoses / Procedures Referred By Osorio guevara Referred To Contact Diagnoses Hypertension Pulmonary (HCC) Dyspnea On Exertion Procedures ECG 12 Lead Vitor Calle M.D. [address] [place] [address] [facility] Region Referral ID Status Reason Start Date Expiration Date Visits Re quested Visits Authorized [id number] Closed 04/10/2024 04/10/2025 1 1 Encounter Details Date Type Department Care Team (Latest Contact Info) Description 04/10/2024 10:50 AM CDT Hospital Encounter Department of Laboratory Medicine in [place], [place] [address] [place] [phone] Vitor Calle M.D. [address] [place] [phone] Hypertension Pulmonary (HCC); Dyspnea On Exertion Social History Tobacco Use Types Packs/Day Years [...] any clubs o r organizations such as gnosticism groups, unions, fraternal or athletic groups, or [...] Answer Date Recorded PHQ-2 Score 1 08/15/2022 [facility] [place] of Occupat ional Health - Occupational Stress [...] your living situation today? I have a [facility] place to live 04/10/2023 Education Answer Date Recorded What is the highest level of school you have completed or the highest degree you have received? 12th grade 04/14/2019 Sex and Gender Information Value Date Recorded Sex Assigned at Female 10/24/2023 10:51 PM [facility] [facility] Gender Identity Female 02/10/2019 11:51 AM CDT Sexual Orientation Straight 02/10/2019 11 :51 AM CDT documented as of this encounter Plan of Treatment Upcoming Encounters Date Type Department Care Team (Latest Contact Info) Description 04/14/2024 12:45 PM CDT Clinical Support Department of Physical Medicine and Rehabilitation in [place] [address] [place] [address] Rod Collins M.D. [address] [place] [phone] Elana Winters P, P.T. [address] [place] [phone] 04/21/2024 12:45 PM CDT Clinical Support Department of Physical Medicine and Rehabilitation in [place] [address] [place] [address] Rod Collins M.D. [address] [place] [phone] Elana Winters P, P.T. [address] [place] [phone] 04/28/2024 12:45 PM CDT Clinical Support Department of Physical Medicine and Rehabilitation in [place] [address] [place] [address] Rod Collins M.D. [address] [place] [phone] Elana Winters P, P.T. [address] [place], [place] [address], [place] [address] 05/11/2024 8:30 AM CDT Appointment Department of Radiology, [facility], in [place], [place] [address] [place] [phone] Tony Schwartz P.A.-C. [address] [place] [phone] Discharge Disposition: Home or Self Care 05/11/2024 11:00 AM CDT Appointment Department of Laboratory Medicine and Pathology, [facility] in [place], [place] [address] [place] [phone] Tony Schwartz P.A.-C. [address] [place] [phone] 05/11/2024 12:15 PM CDT Appointment Department of Radiology, [facility], in [place], [place] [address] [place] [phone] Tony Schwartz P.A.-C. [address] [place] [phone] 05/11/2024 2:45 PM CDT Appointment Department of Radiology, [facility], in [place], [place] [address] [place] [phone] Tony Schwartz P.A.-C. [address] [place] [phone] 05/12/2024 4:00 PM CDT Office Visit Department of Vascular Medicine in [place], [place] [address] [place] [phone] Tony Schwartz P.A.-C. [address] [place] [phone] 05/28/2024 10:45 AM CDT Office Visit Department of Cardiovascular Diseases in [place], [place] [address] [place] [phone] Vitor Calle M.D. [address] [place] [address] [place] [phone] documented as of this encounter Procedures Procedure Name Priority Date/Time Associated Diagnosis Comments ECG Routine 04/10/2024 10:51 AM CDT Hypertension Pulmonary (HCC) Dyspnea On Exertion documented in this encounter Results * ECG 12 Lead (04/10/2024 10:51 AM CDT) Ventricular Rate ECG/Min [address] Interval 136 ms MUSE QRSD Interval 114 ms MUSE QT Interval 358 ms MUSE QTC Interval 426 ms MUSE P [place] 57 degrees MUSE R [place] 269 degrees MUSE T Wave [place] 31 degrees MUSE 04/10/2024 10:5 1 AM [...] Vitor Calle M.D. ECG ORDERABLES MUSE NA documented in this encounter Visit Diagnoses Diagnosis Hypertension Pulmonary (HCC) Dyspnea On Exertion documented in this encounter Additional Health Concerns Assessment Noted Time PHQ-9 Depression Total Score: 6 08/15/20 22 2:06 AM [employer] [facility] documented as of this encounter Care Teams Optical Store Manager Relationship Specialty Start Date End Date Erinn Reina M.D. [address] [place] [phone] PCP - General Family Medicine 09/08/21 documented as of this encounter
--- OUTSIDE RECORDS SUMMARY | 2024-04-10 14:58 | XMS_ITS | Encounter Summary ---
Author Organization [facility] Address [address] [place] [address] Care Team Providers Care Senior Product Analyst Name Role Phone Erinn Reina M.D. Primary Care Provider Reason for Referral * Outpatient (Routine) - Authorized Specialty Diagnoses / Procedures Referred By Osorio guevara Referred To Contact Cardiovascular Disease Vitor Calle M.D. [address] [place] [address] [facility] Referral ID Status Reason Start Date Expiration Date V isits Requested Visits Authorized [id number] Authorized 04/10/2024 10/10/2025 1 1 * Outpatient (Routine) - Closed Specialty Diagnoses / Procedures Referred By Osorio guevara Referred To Contact Diagnoses Hypertension Pulmonary (HCC) Dyspnea On Exertion Procedures ECG 12 Lead Vitor Calle M.D. [address] [place] [address] [facility] Region Referral ID Status Reason Start Date Expiration Date Visits Re quested Visits Authorized [id number] Closed 04/10/2024 04/10/2025 1 1 Reason for Visit * Reason Comments Post Hospital Follow-up * Outpatient (Routine) - Closed Specialty Diagnoses / Procedures Referred By Osorio guevara Referred To Contact Cardiovascular Disease Vitor Calle M.D. [address] [place] [address] [facility] Referral ID Status Reason Start Date Expiration Date Visits Re quested Visits Authorized [id number] Closed 01/08/2024 07/09/2025 1 1 Encounter Details Date Type Department Care Team (Latest Contact Info) Description 04/10/2024 9:30 AM CDT Office Visit Department of Cardiovascular Diseases in [place], [place] [address] [place] [address] Vitor Calle M.D. [address] [facility] [place] [address] Hypertension Pulmonary (HCC) (Primary Dx); Dyspnea On Exertion Social History Tobacco Use [...] often do you attend chur ch or anabaptist services? 1 to 4 times per year 03/05/2022 Do you belong to any clubs o r organizations such as catholic groups, unions, fraternal or athletic groups, [...] 08/15/2022 [facility] [place] of Occupat ional Health - Occupational Stress [...] your living situation today? I have a [facility] place to live 04/10/2023 Education Answer Date Recorded What is the highest level of school you have completed or the highest degree you have received? 12th grade 04/14/2019 Sex and Gender Information Value Date Recorded Sex Assigned at Female 10/24/2023 10:51 PM MANAGER APPLE Gender Identity Female 02/10/2019 11:51 AM CDT Sexual Orientation Straight 02/10/2019 11 :51 AM CDT documented as of this encounter Last Filed Vital Signs Vital Sign Reading Time Taken Comments Blood Pressure 112/62 04/10/2024 10:01 AM CDT Pulse 114 04/10/2024 10:01 AM CDT Temperature 36.6 ??C (97.8 ??F) 04/10/2024 10:00 AM C DT Respiratory Rate - - Oxygen Saturation - - Inhaled Oxygen Concentration - - Weight 43.1 kg (95 lb 0.3 oz) 04/10/2024 10:00 A M CDT Height - - Body Mass Index 18.98 03/04/2024 1:14 PM CDT documented in this encounter Patient Instructions * Patient Instructions* Vitor Calle M.D. - 04/10/2024 9:30 AM CDT The patient reports atrial fibrillation during recent hospitalization [facility]. Documentation notavailable to us at this time. Based on her CHADS- VASc score (at least 5), she has indication for anticoagulation. My preference would be the use of Eliquis. This can be initiated either by us or her primary care provider, once anemia is improved and the risk of bleeding as assessed by the primary care provider is considered acceptable. She has an upcoming follow- up appointment with the primary care provider today, where [facility] inpatient records can be reviewed. documented in this encounter Plan of Treatment Upcoming Encounters Date Type Department Care Team (Latest Contact Info) Description 04/14/2024 12:45 PM CDT Clinical Support Department of Physical Medicine and Rehabilitation in [place], [place] [address] [place] [address] Rod Collins M.D. [address] [place] [phone] Elana Winters P, P.T. [address] [place] [phone] 04/21/2024 12:45 PM CDT Clinical Support Department of Physical Medicine and Rehabilitation in [place], [place] [address] [place] [address] Rod Collins M.D. [address] [place] [phone] Elana Winters P, P.T. [facility] [place] [address] 04/28/2024 12:45 PM CDT Clinical Support Department of Physical Medicine and Rehabilitation in [place], [place] [address] [place] [address] Rod Collins M.D. [address] [place] [phone] Elana Winters P, P.T. [address] [place] [phone] 05/11/2024 8:30 AM CDT Appointment Department of Radiology, [facility], in [place], [place] [address] [place] [address] Tony Schwartz P.A.-C. [address] [place] [phone] Discharge Disposition: Home or Self Care 05/11/2024 11:00 AM CDT Appointment Department of Laboratory Medicine and Pathology, [facility] in [place], [place] [address] [place] [address] Tony Schwartz P.A.-C. [address] [place] [phone] 05/11/2024 12:15 PM CDT Appointment Department of Radiology, [facility], in [place], [place] [address] [place] [address] Tony Schwartz P.A.-C. [address] [place] [phone] 05/11/2024 2:45 PM CDT Appointment Department of Radiology, [facility] in [place], [place] [address] [place] [address] Tony Schwartz P.A.-C. [address] [place] [phone] 05/12/2024 4:00 PM CDT Office Visit Department of Vascular Medicine in [place], [place] [address] [place] [address] Tony Schwartz P.A.-C. [address] [place] [phone] 05/28/2024 10:45 AM CDT Office Visit Department of Cardiovascular Diseases in [place], [place] [address] [place] [address] Vitor Calle M.D. [address] [place] [address] [place] [phone] Scheduled Referrals Name Type Priority Associated Diagnoses Order Schedule Cardiovascular Disease office visit (clinic) Outpatient Referral Routine Expect ed: 05/11/2024 (Approximate), Expires: 07/11/2025 documented as of this encounter Results * ECG 12 Lead (04/10/2024 10:51 AM CDT) Ventricular Rate ECG/Min 85 BPM MUSE RI Interval 136 ms MUSE QRSD Interval 114 ms MUSE QT Interval 358 ms MUSE QTC Interval 426 ms MUSE P [place] 57 degrees MUSE R [place] 269 degrees MUSE T Wave [place] 31 degrees MUSE 04/10/2024 10:5 1 AM [...] this encounter Visit Diagnoses Diagnosis Hypertension Pulmonary (HCC)- Primary Dyspnea On Exertion Hypertension Pulmonary (HCC) Dyspnea On Exertion documented in this encounter Additional Health Concerns Assessment Noted Time PHQ-9 Depression Total Score: 6 08/15/20 22 2:06 AM MANAGER APPLE documented as of this encounter Care Teams Senior Product Analyst Relationship Specialty Start Date End Date Erinn Reina M.D. [address] [place] [address] [place] [phone] PCP - General Family Medicine 09/08/21 documented as of this encounter
--- OUTSIDE RECORDS SUMMARY | 2024-04-10 14:58 | XMS_ITS | Clinical Summary ---
Author Organization [facility] Address [address] [place] [address] Care Team Providers Care Bar Captain Name Role Phone Erinn Reina M.D. Primary Care Provider Source Comments Patient records contain information from all sites at [facility]. For routine questions regarding patient records, call [phone] during business hours, M-F 8:00 AM - 5:00 PM Central Time. Record requests for emergency care only can be directed to [phone] at any time.[facility] Allergies Active Allergy Reactions Criticality Noted [...] Active fluticasone propionate (FLONASE) 50 mcg/actuation nasal sprayIndications:C jon Post Infectious (Cough Subacute) SHAKE LIQUID AND [...] Active miscellaneous medical supply (Blood Pressure Cuff) [facility] One sphygmomanometer , 1 unit; use as [...] 30- 60py cumulative smoking history. Her primary retail zone specialist is Dr. Thorpe. In Nov 2021, she was last seen with Dr. Thorpe and was transitioned to triple inhaler therapy. She couldn't afford Trelegy and switched to Breztri. At this time, repeat oxygen titration studies showed improved oxygenation so she was also taken off of oxygen at this time. Current regimen: ?? Jeanneztri aerosphere 160-9-4.8 (budesonide/glycopyrrolate/formoterol fumarate) 2 puffs BID [...] Hospital Encounter Department of Laboratory Medicine in [place], [place] [address] [place] [phone] Vitor Calle M.D. Hypertension Pulmonary (HCC); Dyspnea On Exertion 04/10/2024 9:30 AM CDT Office Visit Department of Cardiovascular Diseases in [place], [place] [address] [place] [phone] Vitor Calle M.D. Hypertension Pulmonary (HCC) (Primary Dx); Dyspnea On Exertion 03/19/2024 Clinical Communication [facility] in [place], [place] [address] [place] [phone] Arjun Umana M.D. EMILY 03/10/2024 9:15 AM CDT Clinical Support Department of Physical Medicine and Rehabilitation in [place], [place] [address] [place] [address] Rod Collins M.D. Ambroz, Colleen P, P.T. Pain Low Back Unspecified (Primary Dx); Osteoporosis; Pain Back 03/04/2024 1:30 PM CDT Office Visit Division of Pulmonary Medicine in [place], [place] [address] [place] [address] Arjun Umana M.D. Chronic Obstructive Pulmonary Disease (HCC) (Primary Dx); Hypertension Pulmonary (HCC); Chronic Right Heart Failure (HCC); Nicotine Dependence Cigarettes; Abdominal Pain 02/19/2024 Clinical Communication Division of Pulmonary Medicine in [place], [place] [address] [place] [phone] Seun Bey M.D. [employer] form 02/18/2024 10:45 AM CDT Comprehensive Visit Department of Physical Medicine and Rehabilitation in [place], [place] [address] [place] [address] Rod Collins M.D. Ambroz, Colleen P, P.T. Pain Back (Primary Dx); Osteoporosis; Pain Low Back Unspecified 02/05/2024 Orders Only Division of Endocrinology in [place], [place] [address] [place] [address] Rod Collins M.D. Osteoporosis (Primary Dx); Pain Low Back Unspecified; Pain Back 02/04/2024 10:00 AM CDT Clinical Support Department of Physical Medicine and Rehabilitation in [place], [place] [address] [place] [address] Tony Schwartz P.A.-C. Ambroz, Colleen P, P.TAnn-Marie Fibromyalgia (Primary Dx); Pain Low Back Unspecified 02/04/2024 Clinical Communication Division of Endocrinology in [place], [place] [address] [place] [address] Rod Collins M.D. 02/01/2024 Orders Only Division of Endocrinology in [place], [place] [address] [place] [address] Rod Collins M.D. Anemia Iron Deficiency (Primary Dx); Osteoporosis 01/29/2024 10:45 AM CDT Clinical Support Department of Physical Medicine and Rehabilitation in [place], [place] [address] [place] [address] Tony Schwartz P.A.-C. Ambroz, Colleen P, P.TAnn-Marie Fibromyalgia (Primary Dx); Pain Low Back Unspecified 01/29/2024 Clinical Communication Department of Family Medicine, [facility], in [place], [place] [address] [place] [address] Erinn Reina M.D. 01/28/2024 9:00 AM CDT Comprehensive Visit Division of Endocrinology in [place], [place] [address] [place] [address] Jesus Feng APRN, CAnn-MarieN.PRod Suarez M.D. Osteoporosis (Primary Dx); Pain Back; Fracture Vertebra Compression Thoracic Closed Initial (HCC) 01/17/2024 12:45 PM CDT Clinical Support Department of Physical Medicine and Rehabilitation in [place], [place] [address] [facility] [place] [address] Tony Schwartz P.A.-C. Ambroz, Colleen P, PAnn-MarieT. Fibromyalgia (Primary Dx); Pain Low Back Unspecified 01/15/2024 11:30 AM CDT - 01/15/2024 11:59 PM CDT Hospital Encounter Department of Laboratory Medicine in [place], [place] [address] [place] [address] Vitor Calle M.D. Dyspnea Multifactorial; Anemia Iron Deficiency Discharge Disposition: Home or Self Care from Last 3 Months Immunizations Name Administration [...] Comments Breast cancer Mother Breast cancer Sister Carlo hagen ADD Son Jose Antonio Rivera Relation [...] Answer Date Recorded PHQ-2 Score 1 08/15/2022 [facility] - Occupational [...] your living situation today? I have a [facility] place to live 04/10/2023 Education Answer Date Recorded What is the highest level of school you have completed or the highest degree you have received? 12th grade 04/14/2019 Sex and Gender Information Value Date Recorded Sex Assigned at Female 10/24/2023 10:51 PM [employer] Gender Identity Female 02/10/2019 11:51 AM CDT Sexual Orientation Straight 02/10/2019 11 :51 AM CDT Last Filed Vital Signs Vital Sign Reading Time Taken Comments Blood Pressure 112/62 04/10/2024 10:01 AM CDT Pulse 114 04/10/2024 10:01 AM CDT Temperature 36.6 ??C (97.8 ??F) 04/10/2024 1 0:00 AM CDT Respiratory Rate 18 12/03/2022 3:20 PM [employer] Oxygen Saturation 73% 03/04/2024 1:1 4 PM [...] Department of Physical Medicine and Rehabilitation in [place], [place] [address] [place] [phone] Rod Collins M.D. [address] [place] [phone] Elana Winters P, P.T. [address] [place] [phone] 04/21/2024 12:45 PM CDT Clinical Support Department of Physical Medicine and Rehabilitation in [place], [place] [address] [place] [address] Rod Collins M.D. [address] [place] [phone] Elana Winters P, P.T. [address] [place] [phone] 04/28/2024 12:45 PM CDT Clinical Support Department of Physical Medicine and Rehabilitation in [place], [place] [address] [place] [address] Rod Collins M.D. [address] [place] [phone] Elana Winters P, P.T. [address] [place] [phone] 05/11/2024 8:30 AM CDT Appointment Department of Radiology, [facility], in [place], [place] [address] [place] [phone] Tony Schwartz P.A.-C. [address] [place] [phone] Discharge Disposition: Home or Self Care 05/11/2024 11:00 AM CDT Appointment Department of Laboratory Medicine and Pathology, [facility] in [place], [place] [address] [place] [phone] Tony Schwartz P.A.-C. [address] [place] [phone] 05/11/2024 12:15 PM CDT Appointment Department of Radiology, [facility] in [place], [place] [address] [place] [phone] Tony Schwartz P.A.-C. [address] [place] [phone] 05/11/2024 2:45 PM CDT Appointment Department of Radiology, [facility], in [place], [place] [address] [place] [phone] Tony Schwartz P.A.-C. [address] [place] [phone] 05/12/2024 4:00 PM CDT Office Visit Department of Vascular Medicine in [place], [place] [address] [place] [phone] Tony Schwartz P.A.-C. [address] [place] [phone] 05/28/2024 10:45 AM CDT Office Visit Department of Cardiovascular Diseases in [place], [place] [address] [place] [address] Vitor Calle M.D. [address] [place] [phone] Health Maintenance Due Date Last Done Comments Hepatitis C Screening 1945 Visit: Medicare Annual Wellness 1945 Zoster Vaccines (1 of 2) 1995 Depression Monitoring (PHQ-9) 12/13/2022 08/15/2022 Visit: Annual, age 65+ (or Medicare and <65) 05/08/2023 05/08/2022 Fall Risk Screen (Annual) 10/07/2023 COVID-19 Vaccine (2022-2 4 season) 2023 08/21/2023, 05/11/2022, 06/28/2021, Additional history exists Influenza Vaccine (#1) 2024 , 06/15/2020, 11/17/2019, Additional history exists Creatinine Level (Kidney Fun ction Test) 03/19/2025 03/19/2024, 01/28/2024, 01/15/2024, Additional history exists Sodium Level 03/19/2025 03/19/2024, 01/06, 01/15/2024, Additional history exists Potassium Level 03/26/2025 03/26/2024, 03/07, 01/28/2024, Additional history exists Pneumococcal vaccine (65+ years) Completed 10/17/2015, 03/11/2013, 07/07/2000 Lung Cancer Screening Discontinued 09/16/2019 , 09/16/2019, 10/28/2018, Additional history exists Mammogram Discontinued 09/16/2019, 09/06, 05/03/2016 Bone Density Scan (Osteoporo sis Screen) Discontinued 11/01/2023 Medical Devices Implanted Type Area Dry Roller Device Identifier Shelf Expiration Date Model / Serial / Lot Stnt Visi Pro Otw [id number] - [id number] Implanted:Qt y: 1 on 05/04/2019 by Tyson Liao M.D. at [facility] Biliary Stent N/A: Arterial Medtronic 09/24/2019 [id number] / / [id number] Description:SMA #2 Stnt Visi Pro Otw [id number] - [id number] Implanted:Qt y: 1 on 05/04/2019 by Tyson Liao M.D. at [facility] Biliary Stent Right: Arterial Medtronic 03/23/2021 [id number] -[id number] / / [id number] Description:Celiac Artery #2 Hip Implant-2023 Implanted: (Quantity not on file) Hip Implant Hip Stnt Icast Atrm Cov [id number] - [id number] - [id number] Implanted:Qt y: 1 on 05/04/2019 by Tyson Liao M.D. at [facility] Respiratory Stent Right: Arterial Atrium 02/18/2022 [id number] / [id number] / Description:Right Renal Emma ry Stnt Icast Atrm Cov [id number] - [id number] - [id number] Implanted:Qt y: 1 on 05/04/2019 by Tyson Liao M.D. at [facility] Respiratory Stent Right: Arterial Atrium 02/06/2022 [id number] / [id number] / Description:Left renal arter y Stnt Icast Atrm Cov [id number] - [id number] - [id number] Implanted:Qt y: 1 on 05/04/2019 by Tyson Liao M.D. at [facility] Respiratory Stent Right: Arterial Atrium 03/27/2022 [id number] / [id number] / Description:SMA Stnt Icast Atrm Cov [id number] - [id number] - [id number] Implanted:Qt y: 1 on 05/04/2019 by Tyson Liao M.D. at [facility] Respiratory Stent Right: Arterial Atrium 01/29/2022 [id number] / [id number] / Description:Left renal arter y Stnt Icast Atrm Cov [id number] - [id number] - [id number] Implanted:Qt y: 1 on 05/04/2019 by Tyson Liao M.D. at [facility] Respiratory Stent Right: Arterial Atrium 03/27/2022 [id number] / [id number] Description:Celiac Artery Rue-Rxejlt-X enestrated-P natali Stent Graft Implanted:Qt y: 1 on 05/04/2019 by Tyson Liao M.D. at [facility] Stent Other N/A: Aorta [employer] [id number] 03/23/2022 [id number] / / [id number] Aaa-Bifurcat ed-Graft Implanted:Qt y: 1 on 05/04/2019 by Tyson Liao M.D. at [facility] Stent Other N/A: Aorta [employer] [id number] 03/17/2022 [id number] / / [id number] Grft Znt Ilc Ext [id number] - [id number] Implanted:Qt y: 1 on 05/04/2019 by Tyson Liao M.D. at [facility] Vascular Graft Left: Arterial [employer] 12/02/2021 [id number] / / [id number] Description:Left Iliac Stnt Innova Otw [id number] - [id number] Implanted:Qt y: 1 on 05/04/2019 by Tyson Liao M.D. at [facility] Vascular Stent Right: Arterial [employer] 11/03/2020 [id number] / / [id number] Description:Right Renal Emma ry Procedures Procedure Name [...] IGA, S Routine 01/28/2024 10:16 AM CDT OR T4 FREE Routine 01/28/2024 10:16 AM CDT [...] BILATERAL WITH TOMOSYNTHESIS Routine 09/16/2019 10:48 AM AIRCRAFT [employer] MECHANIC CT CHEST WITHOUT IV CONTRAST Routine 08/2019 10:02 AM AIRCRAFT [employer] REPAIR MECHANIC from Last 3 Months or Most Recently Relevant to Health Maintenance Results * ECG 12 Lead (04/10/2024 10:51 AM CDT) Ventricular Rate ECG/Min 85 BPM MUSE OR Interval 136 ms MUSE QRSD Interval 114 ms MUSE QT Interval 358 ms MUSE QTC Interval 426 ms MUSE P [place] 57 degrees MUSE R [place] 269 degrees MUSE T Wave [place] 31 degrees MUSE 04/10/2024 10:5 1 AM [...] - Pulmonary Clinic (03/04/2024 2:42 PM CDT) Pathologist [facility] Emergency Department Sample Site Right Radial Single Stick 03/04/2024 [...] CDT Arjun Umana M.D. LAB BLOOD ADD-ON [facility] [address] [place] [address], [facility] [address] [place] [address] * Quantitative M-protein Study (01/28/2024 10:16 AM [...] its performance characteristics determined by [facility] in a manner consistent with CLIA requirements. This test has not been cleared or approved by the U.S. Food and Drug Administration. Blood (Blood, Venous) 01/28/2024 10:16 AM CDT 01/28/2024 2:02 PM CDT Narrative [facility] - 01/29/2024 12:53 PM CDT Specimen Information: Specimen ID: [id number] Specimen Type: Blood Specimen Collection Start Date: 01/28/2024 10:16 AM Specimen Received Date: 01/28/2024 ??2:02 PM Specimen ID: [id number] Specimen Type: Blood Specimen Collection Start Date: 01/28/2024 10:16 AM Specimen Received Date: 01/28/2024 ??1:55 PM Rod Perales M.D. LAB BLOOD ADD-ON [facility] [address] [place] [address] [facility] [address] [place] [address] [facility] [address] [place] [address] [place] [address] * T4 (Thyroxine), Free, Serum (01/28/2024 10:16 AM CDT) [facility] T4 (Thyroxine), Free, S 1.0 0.9 - 1.7 ng/dL 01/28/2024 11:30 AM CDT DT Blood 01/28/2024 10:1 6 AM CDT 01/28/2024 10:42 AM CDT Rod Perales M.D. LAB BLOOD ADD-ON Performing Organization Address City/[facility] Co de Phone Number [facility] [address] [place] [address], [facility] [address] [place] [address] * (ABNORMAL) Thyroid Function [place] (01/28/2024 10:16 AM CDT) Pathologist [facility] Emergency Department TSH, Sensitive 4.4(H) 0.3 - 4.2 mIU/L 01/28/2024 11:09 AM CDT DT Blood (Blood, Venous) 01/28/2024 10:16 AM CDT 01/28/2024 10:42 AM CDT Rod Perales M.D. LAB BLOOD ADD-ON Performing Organization Address City/[facility] Co de Phone Number [facility] [address] [place] [address], [facility] [address] [place] [address] * Celiac Disease Serology [place] (01/28/2024 10:16 AM CDT) Immunoglobulin A (IgA), S 304 61 - 356 mg/dL 01/28/2024 2:56 PM CDT [facility] Celiac Disease Interpretation See Comment: Negative serology. Celiac disease unlikely. However, approximately 10% of patients with celiac disease are seronegative. Also, patients who are already adhering to a gluten-free diet may be seronegative. If celiac disease is highly clinically suspected, consider HLA-DQ typing. 01/28/2024 9:15 PM CDT [facility] Blood (Blood, Venous) 01/28/2024 10:16 AM CDT 01/28/2024 2:02 PM CDT Narrative [facility] - 01/28/2024 9:15 PM CDT Specimen Information: Specimen ID: [id number] Specimen Type: Blood Specimen Collection Start Date: 01/28/2024 10:16 AM Specimen Received Date: 01/28/2024 ??2:02 PM Specimen ID: [id number] Specimen Type: Blood Specimen Collection Start Date: 01/28/2024 10:16 AM Specimen Received Date: 01/28/2024 ??2:00 PM Rod Perales M.D. LAB BLOOD ADD-ON Performing Organization Address City/[facility]/ZIP Co de Phone Number [facility] [address] [place] [address] [facility] [address] [place] [address] [place] [address] [place] [address] [place] [address] * Thyroperoxidase (TPO) Antibodies (01/28/2024 10:16 AM CDT) Thyroperoxidase Ab, S 18.5 <34.0 IU/mL 01/28/2024 11:30 AM CDT [facility] Blood 01/28/2024 10:1 6 AM CDT 01/28/2024 10:42 AM CDT Rod Perales M.D. LAB BLOOD ADD-ON Performing Organization Address City/[facility]/ZIP Co de Phone Number [facility] [place] [address] [place] [address], [facility] [address] [place] [address] * tTG (Tissue Transglutaminase), Antibody, IgA (01/28/2024 10:16 AM CDT) Tissue Transglutaminase Ab, IgA, S <1.2 <4.0 (Negative ) U/mL 01/28/2024 6:42 PM CDT [facility] Blood 01/28/2024 10:1 6 AM CDT 01/28/2024 3:19 PM CDT Rod Perales M.D. LAB BLOOD ADD-ON [facility] [address] [place] [address] [facility] [address] [place] [address] * Connective Tissue Diseases [place] (01/28/2024 10:16 AM CDT) Pathologist [facility] Emergency Department Antinuclear Ab, S 0.1 <=1.0 (Negative ) U 01/28/2024 7:56 PM CDT [facility] Comment: ----ADDITIONAL INFORMATION---- Method: Enzyme-linked immunoassay using HEp-2 nuclear extract supplemented with purified antigens. Cyclic Citrullinated Peptide Ab, S <15.6 <20.0 (Negative ) U 01/28/2024 6:40 PM CDT [facility] Interpretation SEE COMMENT 7:56 PM CDT [facility] Comment: Tests for antibodies to dsDNA and DERIC antigens are not performed automatically unless the TERRI result is > or = 3.0 U. ??Studies performed at [facility] indicate that positive TERRI results <3.0 U are rarely accompanied by positive second order tests. Blood (Blood, Venous) 01/28/2024 10:16 AM CDT 01/28/2024 1:59 PM CDT Rod Perales M.D. LAB BLOOD ADD-ON [facility] [address] [place] [address] [facility] [address] [place] [address] * (ABNORMAL) 25-Hydroxyvitamin D2 and D3 (01/28/2024 10:16 AM CDT) Pathologist [facility] Emergency Department 25-Hydroxy D2 <4.0 ng/mL 01/30/2024 9:01 AM CDT [facility] 25-Hydroxy D3 18 ng/mL 01/30/2024 9:01 AM CDT SDS 25-Hydroxy D Total 18(L) ng/mL 2023 9:01 AM CDT [facility] Comment: Interpretation: 10-19 ng/mL (mild to moderate deficiency) ----REFERENCE VALUE---- 25-HYDROXY D TOTAL (D2+D3) Optimum levels in the healthy population are 20-50. ----ADDITIONAL INFORMATION---- This test was developed and its performance characteristics determined by [facility] in a manner consistent with CLIA requirements. This test has not been cleared or approved by the U.S. Food and Drug Administration. Blood (Blood, Venous) 01/28/2024 10:16 AM CDT 01/28/2024 1:32 PM CDT Rod Perales M.D. LAB BLOOD ADD-ON Performing Organization Address City/[facility]/ZIP Co de Phone Number [facility] [address] [place] [address] [facility] [address] [place] [address] [place] [address] * Dehydroepiandrosterone Sulfate (DHEA-S) (01/28/2024 10:16 AM CDT) Dehydroepiandrosterone Sulfate, S 72 5.3 - 124 mcg/dL 01/28/2024 3:53 PM CDT [facility] Blood (Blood, Venous) 01/28/2024 10:16 AM CDT 01/28/2024 2:58 PM CDT Rod Perales M.D. LAB BLOOD ADD-ON Performing Organization Address City/[facility]/ZIP Co de Phone Number [facility] [address] [place] [address] [facility] [address] [place] [address] * Sedimentation Rate (01/28/2024 10:16 AM CDT) Sedimentation Rate, B 8 3 - 28 mm/h 01/28/2024 11:48 AM CDT DTL Blood (Blood, Venous) 01/28/2024 10:16 AM CDT 01/28/2024 10:30 AM CDT Rod Perales M.D. LAB BLOOD ADD-ON [facility] [address] [place] [address], [facility] DTL [facility] [address] [place] [address] * (ABNORMAL) CBC with Differential, Blood (01/28/2024 [...] CDT Rod Perales M.D. LAB BLOOD ADD-ON [facility] [address] [place] [address], [place] [facility] [address] [place] [address] [facility] [address] [place] [address] * Rheumatoid Factor (01/28/2024 10:16 AM CDT) Rheumatoid Factor, S <15 <15 IU/mL 01/28/2024 3:40 PM CDT [facility] Blood (Blood, Venous) 01/28/2024 10:16 AM CDT 01/28/2024 3:01 PM CDT Rod Perales M.D. LAB BLOOD ADD-ON [facility] [address] [place] [address] [facility] [address] [place] [address] * CRP (C-Reactive Protein) (01/28/2024 10:16 AM CDT) Pathologist [facility] Emergency Department C-Reactive Protein (CRP), S <3.0 <5.0 mg/L 01/28/2024 11:09 AM CDT [facility] Blood (Blood, Venous) 01/28/2024 10:16 AM CDT 01/28/2024 10:42 AM CDT Rod Perales M.D. LAB BLOOD ADD-ON [facility] [address] [place] [address], [place] [facility] [address] [place] [address] * Ferritin (01/28/2024 10:16 AM CDT) Only the most recent of2 resultswithin the time period is included. Ferritin, S 262 11 - 328 mcg/L 01/28/2024 11:09 AM CDT DTL Blood (Blood, Venous) 01/28/2024 10:16 AM CDT 01/28/2024 10:42 AM CDT Rod Perales M.D. LAB BLOOD ADD-ON Performing Organization Address City/[facility]/ZIP Co de Phone Number [facility] [address] [place] [address], [facility] [address] [place] [address] * CK (Creatine Kinase) (01/28/2024 10:16 AM CDT) [facility] Creatine Kinase (CK), S 116 26 - 192 U/L 01/28/2024 11:09 AM CDT DT Blood (Blood, Venous) 01/28/2024 10:16 AM CDT 01/28/2024 10:42 AM CDT Rod Perales M.D. LAB BLOOD ADD-ON Performing Organization Address [facility] de Phone Number [facility] [address] [place] [address], [facility] [address] [place] [address] * Cortisol (01/28/2024 10:16 AM CDT) Pathologist [facility] Emergency Department Cortisol, Random, S 12 mcg/dL 01/28/2024 11:09 AM CDT DT Comment: ----REFERENCE VALUE---- AM ([id number]): 4.8-20 PM ([id number]): 2.5-12 Blood (Blood, Venous) 01/28/2024 10:16 AM CDT 01/28/2024 10:42 AM CDT Rod Perales M.D. LAB BLOOD ADD-ON Performing Organization Address City/[facility] Co de Phone Number [facility] [address] [place] [address], REHABILIT[facility] [facility] DTL [facility] [address] [place] [address] * (ABNORMAL) Comprehensive Metabolic Panel (01/28/2024 10:16 AM CDT) Pathologist [facility] Potassium, S 4.4 3.6 - 5.2 mmol/L [...] CDT Rod Perales M.D. LAB BLOOD ADD-ON [facility] [address] [place] [address], [facility] DTL [facility] [address] [place] [address] * NT-Pro B-Type Natriuretic Peptide (BNP) (01/15/2024 [...] Vitor Calle M.D. LAB BLOOD ADD-ON [facility] [address] [place] [address], [place] OWAT [facility] [place] [address] [place] [address] * (ABNORMAL) Iron and Total Iron-Binding Capacity [...] Tony Schwartz P.A.-C. LAB BLOOD ADD-ON [facility] [address] [place] [address], [facility] AUST [facility] [address] [place] [address] * Sodium (01/15/2024 11:41 AM CDT) Sodium, P 139 135 - 145 mmol/L 01/15/2024 2:15 PM CDT OWAT Blood (Blood, Venous) 01/15/2024 11:41 AM CDT 01/15/2024 1:31 PM CDT Vitor Calle M.D. LAB BLOOD ADD-ON Performing Organization Address [facility] Co de Phone Number [facility] [address] [place] [address], [facility] OWAT [facility] [place] [address] [place] [address] * Potassium (01/15/2024 11:41 AM CDT) Potassium, P 4.5 3.6 - 5.2 mmol/L 01/15/2024 2:15 PM CDT OWAT Blood (Blood, Venous) 01/15/2024 11:41 AM CDT 01/15/2024 1:31 PM CDT Vitor Calle M.D. LAB BLOOD ADD-ON Performing Organization Address City/[facility]/ZIP Co de Phone Number [facility] [address], [place] [address], [facility] OWAT [facility] [place] [address] [place] [address] * Creatinine with Estimated GFR (01/15/2024 11:41 AM CDT) Creatinine 0.72 0.59 - 1.04 mg/dL 01/15/2024 2:15 PM CDT OWAT Estimated GFR (eGFR) 86 >=60 mL/min/BSA 01/15/2024 2:15 PM CDT OWAT Comment: Estimated GFR calculated using the 2020 CKD_EPI creatinine equation. Blood (Blood, Venous) 01/15/2024 11:41 AM CDT 01/15/2024 1:31 PM CDT Vitor Calle M.D. LAB BLOOD ADD-ON 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 [address] [place] [address] [place] [address] PCP - General Family Medicine 09/08/21
--- OUTSIDE RECORDS SUMMARY | 2024-04-10 14:59 | XMS_ITS | Encounter Summary ---
Author Organization [facility] Address [address] [place] [address] Care Team Providers Care Tallow Pumper Name Role Phone Erinn Reina M.D. Primary Care Provider Reason for Visit * Reason Onset Date Comments [employer] form 02/19/2024 Encounter Details Date Type Department Care Team (Latest Contact Info) Description 02/19/2024 Clinical Communication Division of Pulmonary Medicine in [place], [place] [address] [place] [phone] Seun Bey M.D. [address] [place] [phone] [employer] form Social History Tobacco Use [...] declined 03/05/2022 How often do you attend [facility] or congregational services? 1 to 4 times [...] Date Recorded PHQ-2 Score 1 08/15/2022 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 Action Requested: Fill out form once we receive it. Additional Notes: Will let you know once I get it. documented in this encounter Plan of Treatment Upcoming Encounters Date Type Department Care Team (Latest Contact Info) Description 04/14/2024 12:45 PM CDT Clinical Support Department of Physical Medicine and Rehabilitation in [place] [address] [place] [address] Rod Collins M.D. [address] [place] [phone] Elana Winters P, P.T[place] [address] 04/21/2024 12:45 PM CDT Clinical Support Department of Physical Medicine and Rehabilitation in [place] [address] [place] [address] Rod Collins M.D. [address] [place] [phone] Elana Winters P, P.T. [address] [place] [phone] 04/28/2024 12:45 PM CDT Clinical Support Department of Physical Medicine and Rehabilitation in [place], [place] [address] [place] [address] Rod Collins M.D. [address] [place] [phone] Elana Winters P, P.T. [address] [place] [phone] 05/11/2024 8:30 AM CDT Appointment Department of Radiology, [facility] in [place], [place] [address] [place] [address] Tony Schwartz P.A.-C. [address] [place] [phone] Discharge Disposition: Home or Self Care 05/11/2024 11:00 AM CDT Appointment Department of Laboratory Medicine and Pathology, [facility] in [place], [place] [address] [place] [address] Tony Schwartz P.A.-C. [address] [place] [address] 05/11/2024 12:15 PM CDT Appointment Department of Radiology, [facility] in [place], [place] [address] [place] [address] Tony Schwartz P.A.-C. [address] [place] [phone] 05/11/2024 2:45 PM CDT Appointment Department of Radiology, [facility], in [place], [place] [address] [place] [address] Tony Schwartz P.A.-C. [address] [place] [phone] 05/12/2024 4:00 PM CDT Office Visit Department of Vascular Medicine in [place], [place] [address] [place] [address] Tony Schwartz P.A.-C. [address] [place] [phone] 05/28/2024 10:45 AM CDT Office Visit Department of Cardiovascular Diseases in [place], [place] [address] [place] [address] Vitor Calle M.D. 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 [address] [facility] [place] [address] PCP - General Family Medicine 09/08/21 documented as of this encounter
--- OUTSIDE RECORDS SUMMARY | 2024-04-10 14:59 | XMS_ITS | Encounter Summary ---
Author Organization [facility] Address [address] [place] [address] Care Team Providers Care Master Pilot Name Role Phone Erinn Reina M.D. Primary Care Provider [phone] Reason for Visit * Physical Therapy (Routine) - Canceled Specialty Diagnoses / Procedures Referred By Osorio guevara Referred To Contact Diagnoses Fibromyalgia Pain Low Back Unspecified Procedures PT Ongoing treatment Tony Schwartz P.AAnn-Marie-CAnn-Marie [address] [place] [address] [facility] Region Referral ID Status Reason Start Date Expiration Date V isits Requested Visits Authorized [id number] Canceled 06/07/2023 06/06/2024 99 [phone] Encounter Details Date Type Department Care Team (Latest Contact Info) Description 01/17/2024 12:45 PM CDT Clinical Support Department of Physical Medicine and Rehabilitation in [place], [place] [address] [place] [phone] Tony Schwartz, PAnn-MarieA.-CAnn-Marie [address] [place] [phone] Elana Winters, P.TAnn-Marie [address] [place] [phone] Fibromyalgia (Primary Dx); Pain Low Back Unspecified [...] How often do you attend chur or gnosticism services? 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 Patient verbalizes she remembers the exercises. Memrise: [email or web address] Access Code: [email or web address] Patient reports fair HEP [...] Department of Physical Medicine and Rehabilitation in [place] [address] [place] [address] Rod Collins M.D. 200 [place] [address] Elana Winters P, P.T. [address] [place] [phone] 04/21/2024 12:45 PM CDT Clinical Support Department of Physical Medicine and Rehabilitation in [place], [place] [address] [place] [address] Rod Collins M.D. 200 [place] [address] Elana Winters, P.T. [address] [place] [phone] 04/28/2024 12:45 PM CDT Clinical Support Department of Physical Medicine and Rehabilitation in [place], [place] [address] [place] [address] Rod Collins M.D. [address] [place] [phone] Elana Winters, P.T. [address] [place] [phone] 05/11/2024 8:30 AM CDT Appointment Department of Radiology, [place], [place] [address] [place] [address] Tony Schwartz P.A.-CAnn-Marie [address] [place] [phone] Discharge Disposition: Home or Self Care 05/11/2024 11:00 AM CDT Appointment Department of Laboratory Medicine and Pathology, [facility] in [place], [place] [address] [place] [address] Tony Schwartz P.A.-CAnn-Marie [address] [place] [address] 05/11/2024 12:15 PM CDT Appointment Department of Radiology, [facility], in [place], [place] [address] [place] [address] Tony Schwartz P.A.-C. [address] [place] [phone] 05/11/2024 2:45 PM CDT Appointment Department of Radiology, [facility], in [place], [place] [address] [place] [address] Tony Schwartz P.A.-C. [address] [place] [phone] 05/12/2024 4:00 PM CDT Office Visit Department of Vascular Medicine in [place], [place] [address] [place] [address] Tony Schwartz P.A.-C. [address] [place] [phone] 05/28/2024 10:45 AM CDT Office Visit Department of Cardiovascular Diseases in [place], [place] [address] [place] [address] Vitor Calle M.D. 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 [address] [place] [address] PCP - General Family Medicine 09/08/21 documented as of this encounter
--- OUTSIDE RECORDS SUMMARY | 2024-04-10 14:59 | XMS_ITS | Encounter Summary ---
Author Organization [facility] Address [address] [place] [address] Care Team Providers Care Hyster Machine Operator Name Role Phone Erinn Reina M.D. Primary Care Provider [phone] Reason for Visit * Physical Therapy (Routine) - Canceled Specialty Diagnoses / Procedures Referred By Osorio guevara Referred To Contact Diagnoses Fibromyalgia Pain Low Back Unspecified Procedures PT Ongoing treatment Tony Schwartz P.AAnn-Marie-CAnn-Marie 200 [place] [address] [facility] Region Referral ID Status Reason Start Date Expiration Date V isits Requested Visits Authorized [id number] Canceled 06/07/2023 06/06/2024 99 99 Encounter Details Date Type Department Care Team (Latest Contact Info) Description 01/29/2024 10:45 AM CDT Clinical Support Department of Physical Medicine and Rehabilitation in [place], [place] [address] [place] [phone] Tony Schwartz, PAnn-MarieA.-CAnn-Marie [address] [place] [phone] Elana Winters, P.TAnn-Marie [address] [place] [phone] Fibromyalgia (Primary Dx); Pain Low Back Unspecified [...] How often do you attend chur or presybeterian services? 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 Patient verbalizes she remembers the exercises. Azumio: [email or web address] Access Code: [email or web address] Patient reports fair [...] Department of Physical Medicine and Rehabilitation in [place], [place] [address] [place] [address] Rod Collins M.D. [address] [place] [phone] Elana Winters, P.T. [facility] [place] [address] 04/21/2024 12:45 PM CDT Clinical Support Department of Physical Medicine and Rehabilitation in [place], [place] [address] [place] [address] Rod Collins M.D. [address] [place] [phone] Elana Winters, P.T. [address] [place] [phone] 04/28/2024 12:45 PM CDT Clinical Support Department of Physical Medicine and Rehabilitation in [place], [place] [address] [place] [address] Rod Collins M.D. [address] [place] [phone] Elana Winters P, P.T. [address] [place] [phone] 05/11/2024 8:30 AM CDT Appointment Department of Radiology, [place], [place] [address] [place] [phone] Tony Schwartz P.A.-C. [address] [place] [phone] Discharge Disposition: Home or Self Care 05/11/2024 11:00 AM CDT Appointment Department of Laboratory Medicine and Pathology, [facility] in [place], [place] [address] [place] [address] [place] [address] Tony Schwartz P.A.-C. [address] [place] [phone] 05/11/2024 12:15 PM CDT Appointment Department of Radiology, [facility], in [place], [place] [address] [place] [phone] Tony Schwartz P.A.-C. [address] [place] [phone] 05/11/2024 2:45 PM CDT Appointment Department of Radiology, [facility], in [place], [place] [address] [place] [address] Tony Schwartz P.A.-C. [address] [place] [phone] 05/12/2024 4:00 PM CDT Office Visit Department of Vascular Medicine in [place], [place] [address] [place] [phone] Tony Schwartz P.A.-C. [address] [place] [phone] 05/28/2024 10:45 AM CDT Office Visit Department of Cardiovascular Diseases in [place], [place] [address] [place] [phone] Vitor Calle M.D. 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 [address] [place] [address] [place] [phone] PCP - General Family Medicine 09/08/21 documented as of this encounter
--- OUTSIDE RECORDS SUMMARY | 2024-04-10 14:59 | XMS_ITS | Encounter Summary ---
Author Organization [facility] Address [address] [place] [address] Care Team Providers Care Family Psychologist Name Role Phone Erinn Reina M.D. Primary Care Provider Reason for Referral * Outpatient (Routine) - Authorized Specialty Diagnoses / Procedures Referred By Contac t Referred To Contact Diagnoses Fracture Vertebra Compression Thoracic Closed Initial (HCC) Osteoporosis Procedures BMD Vertebral Fracture Assessment Rod Collins M.D. [address] [place] [address] [facility] Referral ID Status Reason Start Date Expiration Date V isits Requested Visits Authorized [id number] Authorized 01/28/2024 01/27/2025 1 1 * Outpatient (Routine) - Authorized Specialty Diagnoses / Procedures Referred By Contac t Referred To Contact Diagnoses Fracture Vertebra Compression Thoracic Closed Initial (HCC) Osteoporosis Procedures BMD Bone Density Spine Hips Rod Collins M.D. [address] [place] [address] [facility] Referral ID Status Reason Start Date Expiration Date V isits Requested Visits Authorized [id number] Authorized 01/28/2024 01/27/2025 1 1 * Outpatient (Routine) - Authorized Specialty Diagnoses / Procedures Referred By Contac t Referred To Contact Endocrinology Diagnoses Fracture Vertebra Compression Thoracic Closed Initial (HCC) Osteoporosis Rod Collins M.D. [address] [place] [phone] [facility] Referral ID Status Reason Start Date Expiration Date V isits Requested Visits Authorized [id number] Authorized 01/28/2024 07/29/2025 1 1 Scheduling Instructions Fellow or bone SERA * Specialty Diagnoses / Procedures Referred By Contson t Referred To Contact Rod Collins M.D. [address] [place] [phone] [facility] Referral ID Status Reason Start Date Expiration Date Visits Re quested Visits Authorized Scheduling Instructions Schedule at the end of the itinerary. * Specialty Diagnoses / Procedures Referred By Osorio t Referred To Contact Rod Collins M.D. [address] [place] [phone] [facility] Referral ID Status Reason Start Date Expiration Date Visits Re quested Visits Authorized Scheduling Instructions Schedule after the provider consult and before the Healthy Living orders and session 2 education. * Outpatient (Routine) - Authorized Specialty Diagnoses / Procedures Referred By Contac t Referred To Contact Integrative Medicine Diagnoses Pain Back Fracture Vertebra Compression Thoracic Closed Initial (HCC) Rod Collins M.D. [address] [place] [phone] [facility] Referral ID Status Reason Start Date Expiration Date V isits Requested Visits Authorized [id number] Authorized 01/28/2024 07/29/2025 1 1 Scheduling Instructions Ideally schedule after RN Education Session 1 and before RN Education Session 2. If Stress schedules are full, okay to schedule after RN Education Session 2. * Specialty Diagnoses / Procedures Referred By Contson t Referred To Contact Rod Collins M.D. [address] [place] [phone] [facility] Referral ID Status Reason Start Date [...] Physical Therapy (Clinic) Rod Collins M.D. [address] [place] [phone] [facility] Referral ID Status Reason Start Date Expiration Date V isits Requested Visits Authorized [id number] Authorized 01/28/2024 01/27/2025 99 99 * Specialty Diagnoses / Procedures Referred By Osorio t Referred To Contact Rod Collins M.D. [address] [place] [phone] [facility] Referral ID Status Reason Start Date Expiration Date Visits Re quested Visits Authorized Scheduling Instructions Schedule after RN Education Session 1 and before RN Education Session 2. * Specialty Diagnoses / Procedures Referred By Osorio t Referred To Contact Rod Collins M.D. [address] [place] [phone] Referral ID Status Reason Start Date Expiration Date Visits Re quested Visits Authorized * Outpatient (Routine) - Authorized Specialty Diagnoses / Procedures Referred By Contac t Referred To Contact Integrative Medicine Diagnoses Pain Back Fracture Vertebra Compression Thoracic Closed Initial (HCC) Rod Collins M.D. [address] [place] [phone] [facility] Referral ID Status Reason Start Date Expiration Date V isits Requested Visits Authorized [id number] Authorized 01/28/2024 07/29/2025 1 1 Reason for Visit * Outpatient (Routine) - Closed Specialty Diagnoses / Procedures Referred By Osorio guevara Referred To Contact Endocrinology Diagnoses Pain Back Fracture Vertebra Compression Thoracic Closed Initial (HCC) Jesus Feng APRN, C.N.P. [address] [place] [phone] [facility] Referral ID Status Reason Start Date Expiration Date Visits Re quested Visits Authorized [id number] Closed 10/28/2023 04/28/2025 1 1 Encounter Details Date Type Department Care Team (Latest Contact Info) Description 01/28/2024 9:00 AM CDT Comprehensive Visit Division of Endocrinology in [place], [place] [address] [place] [phone] Jesus Feng APRN, C.N.P. [address] [place] [phone] Rod Collins M.D. [address] [place] [phone] Osteoporosis (Primary Dx); Pain Back; Fracture Vertebra [...] How often do you attend chur or holiness services? 1 to 4 times per year [...] 08/15/2022 [facility] - [...] your living situation today? I have a [facility] place to live 04/10/2023 Education Answer Date Recorded What is the highest level of school you have completed or the highest degree you have received? 12th grade 04/14/2019 Sex and Gender Information Value Date Recorded Sex Assigned at Female 10/24/2023 10:51 PM DUMPER MOLD CLEANER Gender Identity Female 02/10/2019 11:51 AM CDT [...] strength. GAIT: Decreased sitting and standing balance. [id number] with assistance Labs: Lab Results Component Value [...] evenity at thistime (No known history of UT or stroke). We will plan on doing [...] Department of Physical Medicine and Rehabilitation in [address] [phone] Rod Collins M.D. [address] [place] [address] Elana Winters P, P.T. [address] [place] [phone] 04/21/2024 12:45 PM CDT Clinical Support Department of Physical Medicine and Rehabilitation in [place] [address] [place] [address] Rod Collins M.D. [address] [place] [address] Elana Winters P, P.T. [address] [place] [phone] 04/28/2024 12:45 PM CDT Clinical Support Department of Physical Medicine and Rehabilitation in [place] [address] [place] [address] Rod Collins M.D. [address] [place] [address] Elana Winters, PGordo. [address] [place] [address] 05/11/2024 8:30 AM CDT Appointment Department of Radiology, [facility] in [place], [place] [address] [place] [address] Tony Schwartz P.A.-C. [address] [place] [phone] Discharge Disposition: Home or Self Care 05/11/2024 11:00 AM CDT Appointment Department of Laboratory Medicine and Pathology, [facility] in [place], [place] [address] [place] [phone] Tony Schwartz P.A.-C. [address] [place] [phone] 05/11/2024 12:15 PM CDT Appointment Department of Radiology, [facility], in [place], [place] [address] [place] [phone] Tony Schwartz P.A.-C. [address] [place] [phone] 05/11/2024 2:45 PM CDT Appointment Department of Radiology, [facility], in [place], [place] [address] [place] [address] Tony Schwartz P.A.-C. [address] [place] [phone] 05/12/2024 4:00 PM CDT Office Visit Department of Vascular Medicine in [place], [place] [address] [place] [phone] Tony Schwartz P.A.-C. [address] [place] [address] 05/28/2024 10:45 AM CDT Office Visit Department of Cardiovascular Diseases in [place], [place] [address] [place] [phone] Vitor Calle M.D. [address] [place] [phone] Scheduled Orders Name Type Priority Associated Diagnoses [...] M-protein Study (01/28/2024 10:16 AM CDT) Pathologist [facility] Immunoglobulin A (IgA), S 304 [...] developed and its performance characteristics determined by [facility] in a manner consistent with CLIA requirements. This test has not been cleared or approved by the U.S. Food and Drug Administration. Blood (Blood, Venous) 01/28/2024 10:16 AM CDT 01/28/2024 2:02 PM CDT Narrative [facility] - 01/29/2024 12:53 PM CDT Specimen Information: Specimen ID: [id number] Specimen Type: Blood Specimen Collection Start Date: 01/28/2024 10:16 AM Specimen Received Date: 01/28/2024 ??2:02 PM Specimen ID: [id number] Specimen Type: Blood Specimen Collection Start Date: 01/28/2024 10:16 AM Specimen Received Date: 01/28/2024 ??1:55 PM Rod Perales M.D. LAB BLOOD ADD-ON [facility] [address] [place] [address] [facility] [address] [place] [address] [place] [address] [place] [address] [place] [address] * Celiac Disease Serology [place] (01/28/2024 10:16 AM CDT) [facility] Immunoglobulin A (IgA), S 304 61 - 356 mg/dL 01/28/2024 2:56 PM CDT [facility] Celiac Disease Interpretation See Comment: Negative serology. Celiac disease unlikely. However, approximately 10% of patients with celiac disease are seronegative. Also, patients who are already adhering to a gluten-free diet may be seronegative. If celiac disease is highly clinically suspected, consider HLA-DQ typing. 01/28/2024 9:15 PM CDT [facility] Blood (Blood, Venous) 01/28/2024 10:16 AM CDT 01/28/2024 2:02 PM CDT Narrative [facility] - 01/28/2024 9:15 PM CDT Specimen Information: Specimen ID: [id number] Specimen Type: Blood Specimen Collection Start Date: 01/28/2024 10:16 AM Specimen Received Date: 01/28/2024 ??2:02 PM Specimen ID: [id number] Specimen Type: Blood Specimen Collection Start Date: 01/28/2024 10:16 AM Specimen Received Date: 01/28/2024 ??2:00 PM Rod Perales M.D. LAB BLOOD ADD-ON [facility] [address] [place] [address] [facility] [address] [place] [address] [facility] [address] [place] [address] [place] [address] * Cortisol (01/28/2024 10:16 AM CDT) Cortisol, Random, S 12 mcg/dL 01/28/2024 11:09 AM CDT DT Comment: ----REFERENCE VALUE---- AM ([phone]): 4.8-20 PM ([phone]): 2.5-12 Blood (Blood, Venous) 01/28/2024 10:16 AM CDT 01/28/2024 10:42 AM CDT Rod Perales M.D. LAB BLOOD ADD-ON Performing Organization Address City/[facility]/ZIP Co de Phone Number [facility] [address] [place], [place] [phone] [place] [address] [address] [place] [address] * Rheumatoid Factor (01/28/2024 10:16 AM CDT) Pathologist [facility] Rheumatoid Factor, S <15 <15 IU/mL 01/28/2024 3:40 PM CDT [facility] Blood (Blood, Venous) 01/28/2024 10:16 AM CDT 01/28/2024 3:01 PM CDT Rod Perales M.D. LAB BLOOD ADD-ON [facility] [address] [place] [address] [facility] [address] [place] [address] * CK (Creatine Kinase) (01/28/2024 10:16 AM CDT) Creatine Kinase (CK), S 116 26 - 192 U/L 01/28/2024 11:09 AM CDT DT Blood (Blood, Venous) 01/28/2024 10:16 AM CDT 01/28/2024 10:42 AM CDT Rod ePrales M.D. LAB BLOOD ADD-ON [facility] [address] [place] [address], [facility] [address] [place] [address] * (ABNORMAL) Thyroid Function [place] (01/28/2024 10:16 AM CDT) Pathologist [facility] TSH, Sensitive 4.4(H) 0.3 - 4.2 mIU/L 01/28/2024 11:09 AM CDT DT Blood (Blood, Venous) 01/28/2024 10:16 AM CDT 01/28/2024 10:42 AM CDT Rod Perales M.D. LAB BLOOD ADD-ON Performing Organization Address City/[facility]/ZIP Co de Phone Number [facility] [address] [place] [address], [facility] [address] [place] [address] * CRP (C-Reactive Protein) (01/28/2024 10:16 AM CDT) Pathologist [facility] C-Reactive Protein (CRP), S <3.0 <5.0 mg/L 01/28/2024 11:09 AM CDT DT Blood (Blood, Venous) 01/28/2024 10:16 AM CDT 01/28/2024 10:42 AM CDT Rod Perales M.D. LAB BLOOD ADD-ON [facility] [address] [place] [address], [facility] [address] [place] [address] * Sedimentation Rate (01/28/2024 10:16 AM CDT) Sedimentation Rate, B 8 3 - 28 mm/h 01/28/2024 11:48 AM CDT [facility] Blood (Blood, Venous) 01/28/2024 10:16 AM CDT 01/28/2024 10:30 AM CDT Rod Perales M.D. LAB BLOOD ADD-ON [facility] [address] [place] [address], [facility] [address] [place] [address] * Dehydroepiandrosterone Sulfate (DHEA-S) (01/28/2024 10:16 AM CDT) Dehydroepiandrosterone Sulfate, S 72 5.3 - 124 mcg/dL 01/28/2024 3:53 PM CDT [facility] Blood (Blood, Venous) 01/28/2024 10:16 AM CDT 01/28/2024 2:58 PM CDT Rod Perales M.D. LAB BLOOD ADD-ON [facility] [address] [place] [address] [facility] [address] [place] [address] * Ferritin (01/28/2024 10:16 AM CDT) Ferritin, S 262 11 - 328 mcg/L 01/28/2024 11:09 AM CDT [facility] Blood (Blood, Venous) 01/28/2024 10:16 AM CDT 01/28/2024 10:42 AM CDT Rod Perales M.D. LAB BLOOD ADD-ON [facility] [address] [place] [address], [facility] DTL [facility] [address] [place] [address] * Connective Tissue Diseases [place] (01/28/2024 10:16 AM CDT) Pathologist [facility] Antinuclear Ab, S 0.1 <=1.0 (Negative ) U 01/28/2024 7:56 PM CDT [facility] Comment: ----ADDITIONAL INFORMATION---- Method: Enzyme-linked immunoassay using HEp-2 nuclear extract supplemented with purified antigens. Cyclic Citrullinated Peptide Ab, S <15.6 <20.0 (Negative ) U 01/28/2024 6:40 PM CDT [facility] Interpretation SEE COMMENT 7:56 PM CDT [facility] Comment: Tests for antibodies to dsDNA and DERIC antigens are not performed automatically unless the TERRI result is > or = 3.0 U. ??Studies performed at [facility] indicate that positive TERRI results <3.0 U are rarely accompanied by positive second order tests. Blood (Blood, Venous) 01/28/2024 10:16 AM CDT 01/28/2024 1:59 PM CDT Rod Perales M.D. LAB BLOOD ADD-ON Performing Organization Address City/[facility]/ZIP Co de Phone Number [facility] [address] [place] [address] [facility] [address] [place] [address] * (ABNORMAL) Comprehensive Metabolic Panel (01/28/2024 10:16 AM CDT) Pathologist [facility] Potassium, S 4.4 3.6 - [...] Perales M.D. LAB BLOOD ADD-ON [facility] [address] [place] [address], [place] DTL [facility] [address] [place] [address] * (ABNORMAL) CBC with Differential, Blood (01/28/2024 10:16 AM CDT) [facility] Hemoglobin 12.5 11.6 - 15.0 g/dL [...] CDT Rod Perales M.D. LAB BLOOD ADD-ON [facility] [address] [place] [address], [facility] DTL [facility] [address] [place], [place] [address] [place] [address] [place] [address] * (ABNORMAL) 25-Hydroxyvitamin D2 and D3 (01/28/2024 [...] developed and its performance characteristics determined by [facility] in a manner consistent with CLIA requirements. This test has not been cleared or approved by the U.S. Food and Drug Administration. Blood (Blood, Venous) 01/28/2024 10:16 AM CDT 01/28/2024 1:32 PM CDT Rod Perales M.D. LAB BLOOD ADD-ON [facility] [address] [place] [address] [facility] [address] [place] [address] [place] [address] documented in this encounter Visit Diagnoses Diagnosis Osteoporosis- Primary Pain Back Fracture Vertebra Compression Thoracic Closed Initial (HCC) documented in this encounter Additional Health Concerns Assessment Noted Time PHQ-9 Depression Total Score: 6 08/15/20 22 2:06 AM DUMPER MOLD CLEANER documented as of this encounter Care Teams Family Psychologist Relationship Specialty Start Date End Date Erinn Reina M.D. [address] [place] [address] [place] [phone] PCP - General Family Medicine 09/08/21 documented as of this encounter
--- OUTSIDE RECORDS SUMMARY | 2024-04-10 14:59 | XMS_ITS | Encounter Summary ---
Author Organization [facility] Address [address] [place] [address] Care Team Providers Care Plate Washer Name Role Phone Erinn Reina M.D. Primary Care Provider [phone] Reason for Referral * Outpatient (Routine) - Authorized Specialty Diagnoses / Procedures Referred By Osorio guevara Referred To Contact Diagnoses Chronic Obstructive Pulmonary Disease (HCC) Procedures Arterial Blood Gas Arjun Umana M.D. [address] [place] [address] [facility] Referral ID Status Reason Start Date Expiration Date V isits Requested Visits Authorized [id number] Authorized 03/04/2024 03/04/2025 1 1 * Outpatient (Routine) - Authorized Specialty Diagnoses / Procedures Referred By Osorio guevaar Referred To Contact Sleep Medicine Diagnoses Chronic Obstructive Pulmonary Disease (HCC) Arjun Umana M.D. [address] [place] [phone] [facility] Referral ID Status Reason Start Date Expiration Date Visits Requested Visits Authorized [id number] Authorized Specialty Services Required 03/04/2024 09/03/2025 1 1 Reason for Visit * Outpatient (Routine) - Closed Specialty Diagnoses / Procedures Referred By Contac t Referred To Contact Pulmonary Medicine Seun Bey M.D. [address] [place] [address] [facility] Referral ID Status Reason Start Date Expiration Date Visits Re quested Visits Authorized [id number] Closed 12/03/2023 06/03/2025 1 1 Encounter Details Date Type Department Care Team (Late st Contact Info) Description 03/04/2024 1:30 PM CDT Office Visit Division of Pulmonary Medicine in [place], [place] [address] [place] [phone] Arjun Umana M.D. [address] [place] [phone] Chronic Obstructive Pulmonary Disease (HCC) (Primary Dx); [...] declined 03/05/2022 How often do you attend [facility] or zoroastrian services? 1 to 4 times [...] Answer Date Recorded PHQ-2 Score 1 08/15/2022 [employer] [facility] - Occupational Stress [...] your living situation today? I have a [facility] place to live 04/10/2023 Education Answer Date Recorded What is the highest level of school you have completed or the highest degree you have received? 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 - 03/04/2024 1:30 PM CDT Images [...] Pulmonary Rehab but has to travel to [place] three times per week, which would be [...] remodeling (increased wall thickness to cavity ratio), [id number]/3 diastolic dysfunction, consistent with mildly elevated filling [...] will look into starting pulmonary rehab in [place]. Immunizations Stay up-to-date with immunizations, including influenza, [...] spent a total of 30 minutes both [id number] and not [id number]. The impression and plans wereexplained in detail. There were no apparent barriers to learning and understanding. All questions were answered. Case will be discussed with product safety consultant, Dr. Thorpe. Arjun Umana M.D. Division of Pulmonary and Critical Care Medicine, Fellow/PGY-6 [place], [place] [phone] documented in this encounter Plan of Treatment Upcoming Encounters Date Type Department Care Team (Latest Contact Info) Description 04/14/2024 12:45 PM CDT Clinical Support Department of Physical Medicine and Rehabilitation in [place], [place] [address] [place] [address] Rod Collins M.D. [address] [place] [phone] Elana Winters P, P.T. [address] [place] [phone] 04/21/2024 12:45 PM CDT Clinical Support Department of Physical Medicine and Rehabilitation in [place], [place] [address] [place] [address] Rod Collins M.D. 200 [place] [address] Elana Winters P, P.T. [address] [place] [phone] 04/28/2024 12:45 PM CDT Clinical Support Department of Physical Medicine and Rehabilitation in [place], [place] [address] [place] [address] Rod Collins M.D. [address] [place] [phone] Elana Winters P, P.T. [address] [place] [phone] 05/11/2024 8:30 AM CDT Appointment Department of Radiology, [facility], in [place], [place] [address] [place] [address] Tony Schwartz P.A.-C. [address] [place] [phone] Discharge Disposition: Home or Self Care 05/11/2024 11:00 AM CDT Appointment Department of Laboratory Medicine and Pathology, [facility] in [place], [place] [address] [place] [phone] Tony Schwartz P.A.-C. [address] [place] [phone] 05/11/2024 12:15 PM CDT Appointment Department of Radiology, [facility] in [place], [place] [address] [place] [phone] Tony Schwartz P.A.-C. [address] [place] [phone] 05/11/2024 2:45 PM CDT Appointment Department of Radiology, [facility], in [place], [place] [address] [place] [address] Tony Schwartz P.A.-C. [address] [place] [phone] 05/12/2024 4:00 PM CDT Office Visit Department of Vascular Medicine in [place], [place] [address] [place] [phone] Tony Schwartz P.A.-C. [address] [place] [phone] 05/28/2024 10:45 AM CDT Office Visit Department of Cardiovascular Diseases in [place], [place] [address] [place] [phone] Vitor Calle M.D. [address] [place] [phone] Scheduled Orders Name Type Priority Associated Diagnoses [...] Total Score: 6 08/15/20 22 2:06 AM CONSULTING UTILITY FORESTER documented as of this encounter Care Teams Plate Washer Relationship Specialty Start Date End Date Erinn Reina M.D. [address] [place] [phone] PCP - General Family Medicine 09/08/21 documented as of this encounter
--- OUTSIDE RECORDS SUMMARY | 2024-04-10 14:59 | XMS_ITS | Encounter Summary ---
Author Organization [facility] Address [address] [place] [address] Care Team Providers Care Barnworker Groom Name Role Phone Erinn Reina M.D. Primary Care Provider [phone] Reason for Referral * Physical Therapy (Routine) - Authorized Specialty Diagnoses / Procedures Referred By Osorio guevara Referred To Contact Diagnoses Osteoporosis Pain Low Back Unspecified Pain Back Procedures PT Ongoing treatment Rod Collins M.D. [address] [place] [address] [facility] Region Referral ID Status Reason Start Date Expiration Date V isits Requested Visits Authorized [id number] Authorized 02/18/2024 02/17/2025 99 99 Reason for Visit * Physical Therapy (Routine) - Authorized Specialty Diagnoses / Procedures Referred By Osorio guevara Referred To Contact Diagnoses Osteoporosis Pain Low Back Unspecified Pain Back Procedures PT Evaluate and treat Rod Collins M.D. [address] [place] [address] [facility] Region Referral ID Status Reason Start Date Expiration Date V isits Requested Visits Authorized [id number] Authorized 02/05/2024 02/04/2025 99 99 Encounter Details Date Type Department Care Team (Latest Contact Info) Description 02/18/2024 10:45 AM CDT Comprehensive Visit Department of Physical Medicine and Rehabilitation in [place], [place] [address] [place] [phone] Rod Collins M.D. [address] [place] [address] Elana Winters, P.T. [address] [place] [phone] Pain Back (Primary Dx); Osteoporosis; Pain Low [...] How often do you attend chur or advent services? 1 to 4 times per year 03/05/2022 Do you belong to any clubs o r organizations such as spiritism groups, unions, fraternal or athletic groups, or [...] Answer Date Recorded PHQ-2 Score 1 08/15/2022 [facility]ational Stress Questionnaire Answer Date [...] Sex Assigned at Female 10/24/2023 10:51 PM GARBAGE TRUCK HELPER Gender Identity Female 02/10/2019 11:51 AM [...] AND B / Product Type: Medicare / [facility] Visit Count: 1 PERTINENT MEDICAL / SURGICAL [...] With Loss Of Consciousness Of Unspecified Duration Initial([facility]) Follow Up Examination Status Post Surgery Nodule [...] Procedure: STENT GRAFT ENDOVASCULAR THORACOABDOMINAL AORTA, JENNIFER [id number], Endovascular repair complex abdominal aortic aneurysm using [...] Function/Occupational Profile: Prior Mobility/Functional Transfers Level of [place]: Modified independent Gait Devices/Wheelchair Used: Manual wheelchair Gait Devices/Wheelchair Used Comments: In community for long events Prior Function/Occupational Profile Dominant Hand: Right Lives With: Alone Receives Help From: buffet attendant, Family ADL Assistance: Modified independent ADL Assistance Comments: Patient requires some assistance with dressing depending on the day and can make simple meals for herself. IADL/Homemaking Assistance: Required assistance IADL/Homemaking Assistance Comments: Patient has SCHOOL SUPERVISOR perform tasks along with family Driving: Does not drive Driving Comments: SCHOOL SUPERVISOR drives patient to appointments. Leisure Interests: Patient [...] pleasant female who presents today with her SCHOOL SUPERVISOR present. Posture: In stance patient demonstrates a [...] for optimal recovery of mobility. In addition [id number] glides attempted throughoutthe thoracic region and passive extension mobilization performed for recovery of posture grade 2 progressing up to a grade 3 oscillating as tolerated. Therapeutic Exercise: Passive range of motion of the right shoulder region and left shoulder regionperformed with flexion, abduction, external rotation as tolerated with resistance to external rotation bilaterally x5 Home Exercise Program/Education: [email or web address] Access Code: [email or web address] Assessment Clinical Impression: Patient [...] Department of Physical Medicine and Rehabilitation in [place], [place] [address] [place] [address] Rod Collins M.D. [address] [place] [address] Elana Winters, P.T. [address] [place] [address] 04/21/2024 12:45 PM CDT Clinical Support Department of Physical Medicine and Rehabilitation in [place], [place] [address] [place] [address] Rod Collins M.D. [address] [place] [address] Elana Winters, P.T. [address] [place] [address] 04/28/2024 12:45 PM CDT Clinical Support Department of Physical Medicine and Rehabilitation in [place], [place] [address] [place] [address] Rod Collins M.D. [address] [place] [phone] Elana Winters, P.T. [address] [place] [address] 05/11/2024 8:30 AM CDT Appointment Department of Radiology, [place], [place] [address] [place] [address] Tony Schwartz P.AAnn-Marie-CAnn-Marie [address] [place] [phone] Discharge Disposition: Home or Self Care 05/11/2024 11:00 AM CDT Appointment Department of Laboratory Medicine and Pathology, [place], [place] [address] [place] [phone] Tony Schwartz P.AAnn-Marie-CAnn-Marie [address] [place] [phone] 05/11/2024 12:15 PM CDT Appointment Department of Radiology, [facility] in [place], [place] [address] [place] [address] Tony Schwartz P.A.-C. [address] [place] [address] 05/11/2024 2:45 PM CDT Appointment Department of Radiology, [facility], in [place], [place] [address] [place] [address] Tony Schwartz P.A.-C. [address] [place] [address] 05/12/2024 4:00 PM CDT Office Visit Department of Vascular Medicine in [place], [place] [address] [place] [address] Tony Schwartz P.A.-C. [address] [place] [phone] 05/28/2024 10:45 AM CDT Office Visit Department of Cardiovascular Diseases in [place], [place] [address] [place] [phone] Vitor Calle M.D. [address] [place] [phone] documented as of this encounter Visit Diagnoses Diagnosis Pain Back- Primary Osteoporosis Pain Low Back Unspecified documented in this encounter Additional Health Concerns Assessment Noted Time PHQ-9 Depression Total Score: 6 08/15/20 22 2:06 AM GARBAGE TRUCK HELPER documented as of this encounter Care Teams Barnworker Groom Relationship Specialty Start Date End Date Erinn Renia M.D. [address] [place] [phone] PCP - General Family Medicine 09/08/21 documented as of this encounter
--- OUTSIDE RECORDS SUMMARY | 2024-04-10 14:59 | XMS_ITS | Encounter Summary ---
Author Organization [facility] Address [address] [place] [address] Care Team Providers Care Optometric Aide Name Role Phone Erinn Reina M.D. Primary Care Provider Reason for Visit * Reason Onset Date Comments EMILY 03/19/2024 Encounter Details Date Type Department Care Team (Late st Contact Info) Description 03/19/2024 Clinical Communication [facility] in [place], [place] [address] [place] [address] Arjun Umana M.D. [address] [place] [phone] EMILY Social History Tobacco Use Types Packs/Day Years [...] declined 03/05/2022 How often do you attend [facility] or druze services? 1 to 4 times per year [...] Answer Date Recorded PHQ-2 Score 1 08/15/2022 [facility] - Occupational [...] your living situation today? I have a [facility] place to live 04/10/2023 Education Answer Date Recorded What is the highest level of school you have completed or the highest degree you have received? 12th grade 04/14/2019 Sex and Gender Information Value Date Recorded Sex Assigned at Female 10/24/2023 10:51 PM NEUROSURGERY PHYSICIAN Gender Identity Female 02/10/2019 11:51 AM CDT Sexual Orientation Straight 02/10/2019 11 :51 AM CDT documented as of this encounter Miscellaneous Notes * Telephone Encounter - Brissa Capone - 03/19/2024 9:48 AM CDT Pulmonary Note: Release of Information Items: [employer] medically necessary equipment form To: [employer] Method: Brissa SMITH [id number] documented in this encounter Plan of Treatment Upcoming Encounters Date Type Department Care Team (Latest Contact Info) Description 04/14/2024 12:45 PM CDT Clinical Support Department of Physical Medicine and Rehabilitation in [place], [place] [address] [place] [address] Rod Collins M.D. [address] [place] [phone] Elana Winters, P.T. [address] [place] [address] 04/21/2024 12:45 PM CDT Clinical Support Department of Physical Medicine and Rehabilitation in [place], [place] [address] [place] [address] Rod Collins M.D. [address] [place] [phone] Elana Winters, P.T. [address] [place] [phone] 04/28/2024 12:45 PM CDT Clinical Support Department of Physical Medicine and Rehabilitation in [place], [place] [address] [place] [address] Rod Collins M.D. [address] [place] [phone] Elana Winters P, P.T. [address] [place] [phone] 05/11/2024 8:30 AM CDT Appointment Department of Radiology, [place], [place] [address] [place] [address] Tony Schwartz P.A.-C. [address] [place] [phone] Discharge Disposition: Home or Self Care 05/11/2024 11:00 AM CDT Appointment Department of Laboratory Medicine and Pathology, [facility] in [place], [place] [address] [place] [address] Tony Schwartz P.A.-C. [address] [place] [address] 05/11/2024 12:15 PM CDT Appointment Department of Radiology, [facility], in [place], [place] [address] [place] [address] Tony Schwartz P.A.-C. [address] [place] [phone] 05/11/2024 2:45 PM CDT Appointment Department of Radiology, [facility], in [place], [place] [address] [place] [address] Tony Schwartz P.A.-C. [address] [place] [phone] 05/12/2024 4:00 PM CDT Office Visit Department of Vascular Medicine in [place], [place] [address] [place] [address] Tony Schwartz P.A.-C. [address] [place] [phone] 05/28/2024 10:45 AM CDT Office Visit Department of Cardiovascular Diseases in [place], [place] [address] [place] [address] Vitor Calle M.D. [address] [place] [phone] documented as of this encounter Visit Diagnoses Not on filedocumented in this encounter Additional Health Concerns Assessment Noted Time PHQ-9 Depression Total Score: 6 08/15/20 22 2:06 AM NEUROSURGERY PHYSICIAN documented as of this encounter Care Teams Optometric Aide Relationship Specialty Start Date End Date Erinn Reina M.D. [address] [place] [address] PCP - General Family Medicine 09/08/21 documented as of this encounter
--- OUTSIDE RECORDS SUMMARY | 2024-04-10 14:59 | XMS_ITS | Encounter Summary ---
Author Organization [facility] Address [address] [place] [address] Care Team Providers Care Senior Tax Analyst Name Role Phone Erinn Reina M.D. Primary Care Provider Encounter Details Date Type Department Care Team (Late st Contact Info) Description 02/01/2024 Orders Only Division of Endocrinology in [place], [place] [address] [place] [phone] Rod Collins M.D. [address] [place] [phone] Anemia Iron Deficiency (Primary Dx); Osteoporosis Social [...] often do you attend chur ch or evangelical services? 1 to 4 times per year [...] 1 08/15/2022 [facility] - [...] your living situation today? I have a [facility] place to live 04/10/2023 Education Answer Date Recorded What is the highest level of school you have completed or the highest degree you have received? 12th grade 04/14/2019 Sex and Gender Information Value Date Recorded Sex Assigned at Female 10/24/2023 10:51 PM FIELD INSURANCE SALES MANAGER Gender Identity Female 02/10/2019 11:51 AM CDT Sexual Orientation Straight 02/10/2019 11 :51 AM CDT documented as of this encounter Plan of Treatment Upcoming Encounters Date Type Department Care Team (Latest Contact Info) Description 04/14/2024 12:45 PM CDT Clinical Support Department of Physical Medicine and Rehabilitation in [place], [place] [address] [place] [address] Rod Collins M.D. [address] [place] [address] Elana Winters, P.T. [address] [place] [address] 04/21/2024 12:45 PM CDT Clinical Support Department of Physical Medicine and Rehabilitation in [place], [place] [address] [place] [address] Rod Collins M.D. [address] [place] [phone] Elana Winters, P.T. [address] [place] [address] 04/28/2024 12:45 PM CDT Clinical Support Department of Physical Medicine and Rehabilitation in [place], [place] [address] [place] [address] Rod Collins M.D. [address] [place] [phone] Elana Winters, P.TAnn-Marie [address] [place] [phone] 05/11/2024 8:30 AM CDT Appointment Department of Radiology, [place], [place] [address] [place] [address] Tony Schwartz P.A.-CAnn-Marie [address] [place] [phone] Discharge Disposition: Home or Self Care 05/11/2024 11:00 AM CDT Appointment Department of Laboratory Medicine and Pathology, [place], [place] [address] [place] [phone] Tony Schwartz P.A.-CAnn-Marie [address] [place] [phone] 05/11/2024 12:15 PM CDT Appointment Department of Radiology, [facility] in [place], [place] [address] [place] [address] Tony Schwartz P.A.-CAnn-Marie [address] [place] [phone] 05/11/2024 2:45 PM CDT Appointment Department of Radiology, [facility], in [place], [place] [address] [place] [address] Tony Schwartz P.A.-C. [address] [place] [address] 05/12/2024 4:00 PM CDT Office Visit Department of Vascular Medicine in [place], [place] [address] [place] [address] Tony Schwartz P.A.-C. [address] [place] [address] 05/28/2024 10:45 AM CDT Office Visit Department of Cardiovascular Diseases in [place], [place] [address] [place] [address] Vitor Calle M.D. [address] [place] [phone] documented as of this encounter Visit Diagnoses Diagnosis Anemia Iron Deficiency- Primary Osteoporosis documented in this encounter Additional Health Concerns Assessment Noted Time PHQ-9 Depression Total Score: 6 08/15/20 22 2:06 AM FIELD INSURANCE SALES MANAGER documented as of this encounter Care Teams Senior Tax Analyst Relationship Specialty Start Date End Date Erinn Reina M.D. NPAmelia: [phone] [address] [place] [phone] PCP - General Family Medicine 09/08/21 documented as of this encounter
--- OUTSIDE RECORDS SUMMARY | 2024-04-10 14:59 | XMS_ITS | Encounter Summary ---
Author Organization [facility] Address [address] [place] [address] Care Team Providers Care Bowl Topper Name Role Phone Ernin Reina M.D. Primary Care Provider [phone] Reason for Visit * Physical Therapy (Routine) - Authorized Specialty Diagnoses / Procedures Referred By Osorio guevara Referred To Contact Diagnoses Osteoporosis Pain Low Back Unspecified Pain Back Procedures PT Ongoing treatment Rod Collins M.D. [address] [place] [address] [facility] Region Referral ID Status Reason Start Date Expiration Date V isits Requested Visits Authorized [id number] Authorized 02/18/2024 02/17/2025 99 99 Encounter Details Date Type Department Care Team (Latest Contact Info) Description 03/10/2024 9:15 AM CDT Clinical Support Department of Physical Medicine and Rehabilitation in [place], [place] [address] [place] [phone] Rod Collins M.D. [address] [place] [phone] Elana Winters P, P.T. [address] [place] [phone] Pain Low Back Unspecified (Primary Dx); Osteoporosis; [...] How often do you attend chur or faith services? 1 to 4 times per year 03/05/2022 Do you belong to any clubs o r organizations such as judaism groups, unions, fraternal or athletic groups, or [...] Answer Date Recorded PHQ-2 Score 1 08/15/2022 [facility] - Occupational Stress Questionnaire Answer [...] Sex Assigned at Female 10/24/2023 10:51 PM LOAN SERVICES PROFESSIONAL Gender Identity Female 02/10/2019 11:51 AM CDT [...] Patient's Name: Marty Rivera Referring Provider: Rod Peralse M.D. Visit Diagnosis: 1. Pain Low Back Unspecified 2. Osteoporosis 3. Pain Back Reason for Referral: Chronic Pain Exacerbation that occur throughout her back but most notably in her cervical and thoracic region. Patient also has history with lumbar and sacral symptoms. Onset Date: 02/04/24 Payor: MEDICARE / Plan: MEDICARE A AND B / Product Type: Medicare / [employer] Visit Count: 2 PERTINENT MEDICAL / SURGICAL [...] 05/04/2019 Procedure: IR Abdominal Aortogram.; Surgeon: Tyson iLao M.D.; Location: RST ROMB OR OOPHORECTOMY, PARTIAL OR TOTAL, UNILATERAL OR BILATERAL;.. OTHER CONVERTED SHX (SEE COMMENT) N/A 01/08/2002 >Colonoscopy with Biopsy SALPINGECTOMY SPINE SURGERY STENT GRAFT ENDOVASCULAR THORACOABDOMINAL AORTA N/A 05/04/2019 Procedure: STENT GRAFT ENDOVASCULAR THORACOABDOMINAL AORTA, JENNIFER [id number], Endovascular repair complex abdominal aortic aneurysm using [...] pleasant female who presents today with her SALES FORECAST ANALYST present. Posture: In stance patient demonstrates a [...] for optimal recovery of mobility. In addition rfre-zl-[id number] glides attempted throughoutthe thoracic region and passive extension mobilization performed for recovery of posture grade 2 progressing up to a grade 3 oscillating as tolerated. Therapeutic Exercise: Passive range of motion of the right shoulder region and left shoulder regionperformed with flexion, abduction, external rotation as tolerated with resistance to external rotation bilaterally x5 Home Exercise Program/Education: [email or web address] Access Code: [email or web address] Assessment Clinical Impression: Patient [...] Home Exercise Program/Education: Access Code: [email or web address] URL: [email or web address] Date: 03/10/2024 Prepared by: Elana Winters Exercises [...] 1 sets - 10 reps - Wall Raoul - 2 x daily - 7 x [...] Department of Physical Medicine and Rehabilitation in [place], [place] [address] [place] [address] Rod Collins M.D. [address] [place] [phone] Elana Winters P, P.T. [address] [place] [phone] 04/21/2024 12:45 PM CDT Clinical Support Department of Physical Medicine and Rehabilitation in [place], [place] [address] [place] [address] Rod Collins M.D. [address] [place] [phone] Elana Winters, P.T. [address] [place] [phone] 04/28/2024 12:45 PM CDT Clinical Support Department of Physical Medicine and Rehabilitation in [place], [place] [address] [place] [address] Rod Collins M.D. [address] [place] [phone] Elana Winters P, P.T. [address] [place] [phone] 05/11/2024 8:30 AM CDT Appointment Department of Radiology, [facility], in [place], [place] [address] [place] [phone] Tony Schwartz P.A.-C. [address] [place] [phone] Discharge Disposition: Home or Self Care 05/11/2024 11:00 AM CDT Appointment Department of Laboratory Medicine and Pathology, [facility] in [place], [place] [address] [place] [address] Tony Schwartz P.A.-C. [address] [place] [phone] 05/11/2024 12:15 PM CDT Appointment Department of Radiology, [facility], in [place], [place] [address] [place] [address] Tony Schwartz P.A.-C. [address] [place] [phone] 05/11/2024 2:45 PM CDT Appointment Department of Radiology, [facility] in [place], [place] [address] [place] [address] Tony Schwartz P.A.-C. [address] [place] [phone] 05/12/2024 4:00 PM CDT Office Visit Department of Vascular Medicine in [place], [place] [address] [place] [phone] Tony Schwartz P.A.-C. [address] [place] [phone] 05/28/2024 10:45 AM CDT Office Visit Department of Cardiovascular Diseases in [place], [place] [address] [place] [phone] Vitor Calle M.D. [address] [place] [phone] documented as of this encounter Visit Diagnoses Diagnosis Pain Low Back Unspecified- Primary Osteoporosis Pain Back documented in this encounter Additional Health Concerns Assessment Noted Time PHQ-9 Depression Total Score: 6 08/15/20 22 2:06 AM LOAN SERVICES PROFESSIONAL documented as of this encounter Care Teams Bowl Topper Relationship Specialty Start Date End Date Erinn Reina M.D. [address] [place] [address] [place] [phone] PCP - General Family Medicine 09/08/21 documented as of this encounter
--- OUTSIDE RECORDS SUMMARY | 2024-04-10 14:59 | XMS_ITS | Encounter Summary ---
Author Organization [facility] Address [address] [place] [address] Care Team Providers Care Alteration Hand Name Role Phone Erinn Reina M.D. Primary Care Provider Encounter Details Date Type Department Care Team (Latest Contact Info) Description 02/04/2024 Clinical Communication Division of Endocrinology in [place], [place] [address] [place] [address] Rod Collins M.D. [address] [place] [phone] Social History Tobacco Use Types Packs/Day Years [...] often do you attend chur ch or nondenominational services? 1 to 4 times per year 03/05/2022 Do you belong to any clubs o r organizations such as denominational groups, unions, fraternal or athletic groups, or [...] Answer Date Recorded PHQ-2 Score 1 08/15/2022 [facility] Answer [...] Assigned at Female 10/24/2023 10:51 PM MANAGER MAIL Gender Identity Female 02/10/2019 11:51 AM CDT Sexual Orientation Straight 02/10/2019 11 :51 AM CDT documented as of this encounter Plan of Treatment Upcoming Encounters Date Type Department Care Team (Latest Contact Info) Description 04/14/2024 12:45 PM CDT Clinical Support Department of Physical Medicine and Rehabilitation in [place], [place] [address] [place] [address] Rod Collins M.D. [address] [place] [address] Elana Winters, P.T. [address] [place] [address] 04/21/2024 12:45 PM CDT Clinical Support Department of Physical Medicine and Rehabilitation in [place], [place] [address] [place] [address] Rod Collins M.D. [address] [place] [address] Elana Winters P, P.T. [address] [place] [address] 04/28/2024 12:45 PM CDT Clinical Support Department of Physical Medicine and Rehabilitation in [place], [place] [address] [place] [address] Rod Collins M.D. [address] [place] [phone] Elana Winters P, P.T. [address] [place] [address] 05/11/2024 8:30 AM CDT Appointment Department of Radiology, [place], [place] [address] [place] [address] Tony Schwartz P.A.-CAnn-Marie [address] [place] [phone] Discharge Disposition: Home or Self Care 05/11/2024 11:00 AM CDT Appointment Department of Laboratory Medicine and Pathology, [place], [place] [address] [place] [phone] Tony Schwartz P.A.-C. [address] [place] [phone] 05/11/2024 12:15 PM CDT Appointment Department of Radiology, [place], [place] [address] [place] [address] Tony Schwartz P.A.-CAnn-Marie [address] [place] [phone] 05/11/2024 2:45 PM CDT Appointment Department of Radiology, [facility], in [place], [place] [address] [place] [address] Tony Schwartz P.A.-C. [address] [place] [address] 05/12/2024 4:00 PM CDT Office Visit Department of Vascular Medicine in [place], [place] [address] [place] [address] Tony Schwartz P.A.-C. [address] [place] [phone] 05/28/2024 10:45 AM CDT Office Visit Department of Cardiovascular Diseases in [place], [place] [address] [place] [address] Vitor Calle M.D. [address] [place] [address] documented as of this encounter Visit Diagnoses Not on filedocumented in this encounter Additional Health Concerns Assessment Noted Time PHQ-9 Depression Total Score: 6 08/15/20 22 2:06 AM MANAGER MAIL documented as of this encounter Care Teams Alteration Hand Relationship Specialty Start Date End Date Erinn Reina M.D. [address] [place] [phone] PCP - General Family Medicine 09/08/21 documented as of this encounter
--- OUTSIDE RECORDS SUMMARY | 2024-04-10 14:59 | XMS_ITS | Encounter Summary ---
Author Organization [facility] Address [address] [place] [address] Care Team Providers Care Broadcast Traffic Coordinator Name Role Phone Erinn Reina M.D. Primary Care Provider [phone] Reason for Visit * Physical Therapy (Routine) - Canceled Specialty Diagnoses / Procedures Referred By Osorio guevara Referred To Contact Diagnoses Fibromyalgia Pain Low Back Unspecified Procedures PT Ongoing treatment Tony Schwartz P.AAnn-Marie-CAnn-Marie 200 [place] [address] [facility] Region Referral ID Status Reason Start Date Expiration Date V isits Requested Visits Authorized [id number] Canceled 06/07/2023 06/06/2024 99 [phone] Encounter Details Date Type Department Care Team (Latest Contact Info) Description 02/04/2024 10:00 AM CDT Clinical Support Department of Physical Medicine and Rehabilitation in [place], [place] [address] [place] [phone] Tony Schwartz, PAnn-MarieA.-CAnn-Marie [address] [place] [phone] Elana Griffin, P.TAnn-Marie [address] [place] [phone] Fibromyalgia (Primary Dx); Pain Low Back Unspecified [...] any clubs o r organizations such as lutheran groups, unions, fraternal or athletic groups, or [...] Answer Date Recorded PHQ-2 Score 1 08/15/2022 [facility] [place] of Occupat ional Health - Occupational Stress [...] Sex Assigned at Female 10/24/2023 10:51 PM DIRECTIONAL BORE OPERATOR Gender Identity Female 02/10/2019 11:51 AM [...] side greater then her right 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 Patient verbalizes she remembers the exercises. [employer]: [email or web address] Access Code: [email or web address] Patient reports fair HEP [...] Department of Physical Medicine and Rehabilitation in [place], [place] [address] [place] [address] Rod Collins M.D. [address] [place] [address] Elana Griffin P.T. [address] [place] [address] 04/21/2024 12:45 PM CDT Clinical Support Department of Physical Medicine and Rehabilitation in [place], [place] [address] [address] Rod Collins M.D. [address] [place] [address] Elana Griffin P, P.T. [address] [place] [address] 04/28/2024 12:45 PM CDT Clinical Support Department of Physical Medicine and Rehabilitation in [place], [place] [address] [place] [address] Rod Collins M.D. [address] [place] [phone] Elana Griffin, P.T. [address] [place] [address] 05/11/2024 8:30 AM CDT Appointment Department of Radiology, [place], [place] [address] [place] [address] Tony Schwartz P.AAnn-Marie-CAnn-Marie [address] [place] [phone] Discharge Disposition: Home or Self Care 05/11/2024 11:00 AM CDT Appointment Department of Laboratory Medicine and Pathology, [facility] in [place], [place] [address] [place] [phone] Tony Schwartz P.A.-CAnn-Marie [address] [place] [phone] 05/11/2024 12:15 PM CDT Appointment Department of Radiology, [facility], in [place], [place] [address] [place] [address] Tony Schwartz P.A.-CAnn-Marie [address] [place] [phone] 05/11/2024 2:45 PM CDT Appointment Department of Radiology, [facility], in [place], [place] [address] [place] [address] Tony Schwartz P.A.-C. [address] [place] [address] 05/12/2024 4:00 PM CDT Office Visit Department of Vascular Medicine in [place], [place] [address] [place] [address] Tony Schwartz P.A.-C. [address] [place] [address] 05/28/2024 10:45 AM CDT Office Visit Department of Cardiovascular Diseases in [place], [place] [address] [place] [address] Vitor Calle M.D. 300 [place] [phone] documented as of this encounter Visit Diagnoses Diagnosis Fibromyalgia- Primary Pain Low Back Unspecified documented in this encounter Additional Health Concerns Assessment Noted Time PHQ-9 Depression Total Score: 6 08/15/20 22 2:06 AM DIRECTIONAL BORE OPERATOR documented as of this encounter Care Teams Broadcast Traffic Coordinator Relationship Specialty Start Date End Date Erinn Reina M.D. 300 [place] [phone] PCP - General Family Medicine 09/08/21 documented as of this encounter
--- OUTSIDE RECORDS SUMMARY | 2024-04-10 14:59 | XMS_ITS | Encounter Summary ---
Author Organization [facility] Address [address] [place] [address] Care Team Providers Care Auto Service Station Attendant Name Role Phone Erinn Reina M.D. Primary Care Provider [phone] Encounter Details Date Type Department Care Team (Late st Contact Info) Description 01/29/2024 Clinical Communication Department of Family Medicine, [facility], in [place], [place] [address] [place] [address] Erinn Reina M.D. 300 [place] [address] Social History Tobacco Use Types [...] How often do you attend chur or tenriism services? 1 to 4 times per year 03/05/2022 Do you belong to any clubs o r organizations such as jehovah's witness groups, unions, fraAlphaStripe or athletic groups, or school groups? No [...] Answer Date Recorded PHQ-2 Score 1 08/15/2022 [facility] - Occupational Stress Questionnaire Answer Date [...] your living situation today? I have a [facility] place to live 04/10/2023 Education Answer Date Recorded What is the highest level of school you have completed or the highest degree you have received? 12th grade 04/14/2019 Sex and Gender Information Value Date Recorded Sex Assigned at Female 10/24/2023 10:51 PM PROTECTIVE OFFICER Gender Identity Female 02/10/2019 11:51 AM CDT Sexual Orientation Straight 02/10/2019 11 :51 AM CDT documented as of this encounter Plan of Treatment Upcoming Encounters Date Type Department Care Team (Latest Contact Info) Description 04/14/2024 12:45 PM CDT Clinical Support Department of Physical Medicine and Rehabilitation in [place], [place] [address] [place] [address] Rod Collins M.D. [address] [place] [address] Elana Winters, P.T. [address] [place] [address] 04/21/2024 12:45 PM CDT Clinical Support Department of Physical Medicine and Rehabilitation in [place], [place] [address] [place] [address] Rod Collins M.D. [address] [place] [phone] Elana Winters P, P.T. [address] [place] [address] 04/28/2024 12:45 PM CDT Clinical Support Department of Physical Medicine and Rehabilitation in [place], [place] [address] [place] [address] Rod Collins M.D. [address] [place] [phone] Elana Winters P, P.T. [address] [place] [address] 05/11/2024 8:30 AM CDT Appointment Department of Radiology, [place], [place] [address] [place] [address] Tony Schwartz P.A.-CAnn-Marie [address] [place] [phone] Discharge Disposition: Home or Self Care 05/11/2024 11:00 AM CDT Appointment Department of Laboratory Medicine and Pathology, [place], [place] [address] [place] [phone] Tony Schwartz P.A.-CAnn-Marie [address] [place] [phone] 05/11/2024 12:15 PM CDT Appointment Department of Radiology, [place], [place] [address] [place] [phone] Tony Schwartz P.A.Christine [address] [place] [phone] 05/11/2024 2:45 PM CDT Appointment Department of Radiology, [facility], in [place], [place] [address] [place] [address] Tony Schwartz P.A.-C. [address] [place] [address] 05/12/2024 4:00 PM CDT Office Visit Department of Vascular Medicine in [place], [place] [address] [place] [address] Tony Schwartz P.A.-C. [address] [place] [phone] 05/28/2024 10:45 AM CDT Office Visit Department of Cardiovascular Diseases in [place], [place] [address] [place] [address] Vitor Calle M.D. 300 [place] [address] Scheduled Orders Name Type Priority Associated Diagnoses Orde r Schedule PUL Home Overnight Oximetry PFT Routine Abnormal Oximetry Expected: 01/29/2024, Expires: 04/29/2025 documented as of this encounter Visit Diagnoses Diagnosis Pain Back- Primary Fracture Vertebra Compression Thoracic Closed Initial (HCC) Abnormal Oximetry documented in this encounter Additional Health Concerns Assessment Noted Time PHQ-9 Depression Total Score: 6 08/15/20 22 2:06 AM PROTECTIVE OFFICER documented as of this encounter Care Teams Auto Service Station Attendant Relationship Specialty Start Date End Date Erinn Reina M.D. 300 [place] [phone] PCP - General Family Medicine 09/08/21 documented as of this encounter
--- OUTSIDE RECORDS SUMMARY | 2024-04-10 14:59 | XMS_ITS | Encounter Summary ---
Author Organization [facility] Address [address] [place] [address] Care Team Providers Care Fire Investigation Manager Name Role Phone rEinn Reina M.D. Primary Care Provider [phone] Reason for Referral * Physical Therapy (Routine) - Authorized Specialty Diagnoses / Procedures Referred By Osorio guevara Referred To Contact Diagnoses Osteoporosis Pain Low Back Unspecified Pain Back Procedures PT Evaluate and treat Rod Collins M.D. 200 [place] [address] [facility] Region Referral ID Status Reason Start Date Expiration Date V isits Requested Visits Authorized [id number] Authorized 02/05/2024 02/04/2025 99 99 Encounter Details Date Type Department Care Team (Late st Contact Info) Description 02/05/2024 Orders Only Division of Endocrinology in [place], [place] [address] [place] [phone] Rod Collins M.D. [address] [place] [phone] Osteoporosis (Primary Dx); Pain Low Back Unspecified; [...] declined 03/05/2022 How often do you attend [facility] or islam services? 1 to 4 times per year 03/05/2022 Do you belong to any clubs o r organizations such as taoism groups, unions, fraternal or athletic groups, or [...] Answer Date Recorded PHQ-2 Score 1 08/15/2022 [facility] [place] of Occupat ional Health - Occupational Stress [...] Sex Assigned at Female 10/24/2023 10:51 PM ALMOND GRINDER Gender Identity Female 02/10/2019 11:51 AM CDT Sexual Orientation Straight 02/10/2019 11 :51 AM CDT documented as of this encounter Plan of Treatment Upcoming Encounters Date Type Department Care Team (Latest Contact Info) Description 04/14/2024 12:45 PM CDT Clinical Support Department of Physical Medicine and Rehabilitation in [place], [place] [address] [place] [address] Rod Collins M.D. [address] [place] [phone] Elana Winters P, P.T. [address] [address] 04/21/2024 12:45 PM CDT Clinical Support Department of Physical Medicine and Rehabilitation in [place], [place] [address] [place] [address] Rod Collins M.D. [address] [place] [phone] Elana Winters, P.T. [address] [place] [phone] 04/28/2024 12:45 PM CDT Clinical Support Department of Physical Medicine and Rehabilitation in [place], [place] [address] [place] [address] Rod Collins M.D. [address] [place] [phone] Elana Winters, P.T. [address] [place] [phone] 05/11/2024 8:30 AM CDT Appointment Department of Radiology, [facility], in [place], [place] [address] [place] [phone] Tony Schwartz P.A.-C. [address] [place] [phone] Discharge Disposition: Home or Self Care 05/11/2024 11:00 AM CDT Appointment Department of Laboratory Medicine and Pathology, [facility] in [place], [place] [address] [place] [phone] Tony Schwartz P.A.-C. [address] [place] [phone] 05/11/2024 12:15 PM CDT Appointment Department of Radiology, [facility], in [place], [place] [address] [place] [phone] Tony Schwartz P.A.-C. [address] [place] [phone] 05/11/2024 2:45 PM CDT Appointment Department of Radiology, [facility] in [place], [place] [address] [place] [address] Tony Schwartz P.A.-C. [address] [place] [phone] 05/12/2024 4:00 PM CDT Office Visit Department of Vascular Medicine in [place], [place] [address] [place] [phone] Tony Schwartz P.A.-C. [address] [place] [phone] 05/28/2024 10:45 AM CDT Office Visit Department of Cardiovascular Diseases in [place], [place] [address] [place] [address] Vitor Calle M.D. [address] [place] [phone] documented as of this encounter Visit Diagnoses Diagnosis Osteoporosis- Primary Pain Low Back Unspecified Pain Back documented in this encounter Additional Health Concerns Assessment Noted Time PHQ-9 Depression Total Score: 6 08/15/20 22 2:06 AM ALMOND GRINDER documented as of this encounter Care Teams Fire Investigation Manager Relationship Specialty Start Date End Date Erinn Reina M.D. [address] [place] [address] [place] [phone] PCP - General Family Medicine 09/08/21 documented as of this encounter
--- OUTSIDE RECORDS SUMMARY | 2024-04-10 15:00 | XMS_ITS | Encounter Summary ---
Author Organization [facility] Address [address] [place] [address] Care Team Providers Care Loading Unit Operator Powder Charging Name Role Phone Erinn Reina M.D. Primary Care Provider [phone] Reason for Visit * Physical Therapy (Routine) - Canceled Specialty Diagnoses / Procedures Referred By Osorio guevara Referred To Contact Diagnoses Fibromyalgia Pain Low Back Unspecified Procedures PT Ongoing treatment Tony Schawrtz P.AAnn-Marie-CAnn-Marie 200 [place] [address] [facility] Region Referral ID Status Reason Start Date Expiration Date V isits Requested Visits Authorized [id number] Canceled 06/07/2023 06/06/2024 99 99 Encounter Details Date Type Department Care Team (Latest Contact Info) Description 01/02/2024 9:15 AM CDT Clinical Support Department of Physical Medicine and Rehabilitation in [place], [place] [address] [place] [phone] Tony Schwartz, PAnn-MarieA.-CAnn-Marie [address] [place] [phone] Elana Winters, P.TAnn-Marie [address] [place] [phone] Fibromyalgia (Primary Dx); Pain Low Back Unspecified [...] any clubs o r organizations such as shinto groups, unions, fraternal or athletic groups, or [...] Date Recorded PHQ-2 Score 1 08/15/2022 [facility] [place] of Occupat ional Health - Occupational Stress [...] Sex Assigned at Female 10/24/2023 10:51 PM CATALYTIC CASE OPERATOR Gender Identity Female 02/10/2019 11:51 AM [...] grossly 35 minutes.Patient reports she saw her ware finisher and has a scheduled appointment with her staff development manager next week again. Patient reports her back continues to hurt throughout and believes she has having a fibromyalgia exacerbation due to the nature of her pain in the location is throughout her back versus localized areas. OBJECTIVE Pain: Not formally rated today. 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 Patient verbalizes she remembers the exercises. [employer]: [email or web address] Access Code: [email or web address] Patient reports fair HEP [...] Department of Physical Medicine and Rehabilitation in [place], [place] [address] [place] [phone] Rod Collins M.D. [address] [place] [address] Elana Winters, P.T. [address] [place] [phone] 04/21/2024 12:45 PM CDT Clinical Support Department of Physical Medicine and Rehabilitation in [place], [place] [address] [place] [address] Rod Collins M.D. [address] [place] [phone] Elana Winters, P.T. [address] [place] [address] 04/28/2024 12:45 PM CDT Clinical Support Department of Physical Medicine and Rehabilitation in [place], [place] [address] [place] [address] Rod Collins M.D. [address] [place] [phone] Elana Winters P, P.T. [facility] [place] [place] [address] 05/11/2024 8:30 AM CDT Appointment Department of Radiology, [place], [place] [address] [place] [phone] Tony Schwartz P.A.-C. [address] [place] [phone] Discharge Disposition: Home or Self Care 05/11/2024 11:00 AM CDT Appointment Department of Laboratory Medicine and Pathology, [facility] in [place], [place] [address] [place] [phone] Tony Schwartz P.A.-CAnn-Marie [address] [place] [phone] 05/11/2024 12:15 PM CDT Appointment Department of Radiology, [facility], in [place], [place] [address] [place] [address] Tony Schwartz P.A.-C. [address] [place] [address] 05/11/2024 2:45 PM CDT Appointment Department of Radiology, [facility], in [place], [place] [address] [place] [address] Tony Schwartz P.A.-C. [address] [place] [phone] 05/12/2024 4:00 PM CDT Office Visit Department of Vascular Medicine in [place], [place] [address] [place] [address] Tony Schwartz P.A.-C. [address] [place] [phone] 05/28/2024 10:45 AM CDT Office Visit Department of Cardiovascular Diseases in [place], [place] [address] [place] [address] Vitor Calle M.D. 300 [place] [phone] documented as of this encounter Visit Diagnoses Diagnosis Fibromyalgia- Primary Pain Low Back Unspecified documented in this encounter Additional Health Concerns Assessment Noted Time PHQ-9 Depression Total Score: 6 08/15/20 22 2:06 AM CATALYTIC CASE OPERATOR documented as of this encounter Care Teams Loading Unit Operator Powder Charging Relationship Specialty Start Date End Date Erinn Reina M.D. [address] [place] [address] PCP - General Family Medicine 09/08/21 documented as of this encounter
--- OUTSIDE RECORDS SUMMARY | 2024-04-10 15:00 | XMS_ITS | Encounter Summary ---
Author Organization [facility] Address [address] [place] [address] Care Team Providers Care Moisture Conditioner Operator Name Role Phone Erinn Reina M.D. Primary Care Provider Reason for Referral * Outpatient (Routine) - Closed Specialty Diagnoses / Procedures Referred By Osorio guevara Referred To Contact Cardiovascular Disease Vitor Calle M.D. [address] [place] [address] [facility] Referral ID Status Reason Start Date Expiration Date Visits Re quested Visits Authorized [id number] Closed 01/08/2024 07/09/2025 1 1 Reason for Visit * Reason Comments Follow-up Results ECHO * Outpatient (Routine) - Closed Specialty Diagnoses / Procedures Referred By Osorio guevara Referred To Contact Cardiovascular Disease Vitor Calle M.D. [address] [place] [phone] [facility] Region Referral ID Status Reason Start Date Expiration Date Visits Re quested Visits Authorized [id number] Closed 10/09/2023 10/08/2026 1 1 Encounter Details Date Type Department Care Team (Latest Contact Info) Description 01/08/2024 11:30 AM CDT Office Visit Department of Cardiovascular Diseases in [place], [place] [address] [place] [phone] Vitor Calle M.D. 300 [facility] [place] [phone] Dyspnea Multifactorial (Primary Dx) Social History Tobacco [...] How often do you attend chur or latter-day services? 1 to 4 times per year [...] Recorded PHQ-2 Score 1 08/15/2022 [facility] - Occupational Stress Questionnaire Answer [...] Sex Assigned at Female 10/24/2023 10:51 PM STAFF DESIGN ENGINEER Gender Identity Female 02/10/2019 11:51 AM [...] Body Mass Index 16.73 11/01/2023 11:19 AM STAFF DESIGN ENGINEER documented in this encounter Progress Notes * Vitor Calle M.D. 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 [place] Heart Association class 3 functional status. Some [...] follow-up and management with Pulmonary Medicine in [place]. We encouraged the patient is scheduling palliative care and pulmonary rehabilitation as recommended by [place]. The patient has been prescribed metoprolol succinate [...] referral to the nicotine cessation Clinic in [place] but she had been seen by them [...] planning with the patient, her [facility] (Tru) [facility] visit today. The patient was [...] schedule follow-up appointment with palliative Service in [place], for additional discussions in regards to options [...] with the plan. CARDIOLOGY SUBSEQUENT VISIT Location: -[place] SUBJECTIVE CHIEF COMPLAINT / REASON FOR VISIT Office follow-up. HISTORY OF PRESENT ILLNESS Ms. Marty Rivera is a very pleasant 78 y.o. female who presents to [facility] for follow-up. Her primary [...] not been seen by palliative Medicine in [place] as yet. Compliant with medication without side [...] AND USE 2 SPRAYS IN EACHNOSTRIL DAILY odysidmypog-hypmqpcmuifq-juvektmdni (Trelegy Ellipta) 100-62.5-25 mcg/actuation inhaler Inhale 1 [...] Department of Physical Medicine and Rehabilitation in [place], [place] [address] [place] [address] Rod Collins M.D. [address] [place] [phone] Elana Winters P, P.T. [address] [place] [phone] 04/21/2024 12:45 PM CDT Clinical Support Department of Physical Medicine and Rehabilitation in [place], [place] [address] [place] [address] Rod Collins M.D. [address] [place] [phone] Elana Winters P, P.T. [address] [place] [phone] 04/28/2024 12:45 PM CDT Clinical Support Department of Physical Medicine and Rehabilitation in [place], [place] [address] [place] [address] Rod Collins M.D. [address] [place] [phone] Elana Winters P, P.T. [address] [place] [phone] 05/11/2024 8:30 AM CDT Appointment Department of Radiology, [facility], in [place], [place] [address] [place] [phone] Tony Schwartz P.A.-C. [address] [place] [phone] Discharge Disposition: Home or Self Care 05/11/2024 11:00 AM CDT Appointment Department of Laboratory Medicine and Pathology, [facility] in [place], [place] [address] [place] [address] Tony Schwartz P.A.-C. [address] [place] [phone] 05/11/2024 12:15 PM CDT Appointment Department of Radiology, [facility] in [place], [place] [address] [place] [address] Tony Schwartz P.A.-C. [address] [place] [phone] 05/11/2024 2:45 PM CDT Appointment Department of Radiology, [facility], in [place], [place] [address] [place] [address] Tony Schwartz P.A.-C. [address] [place] [phone] 05/12/2024 4:00 PM CDT Office Visit Department of Vascular Medicine in [place], [place] [address] [place] [address] Tony Schwartz P.A.-C. [address] [place] [phone] 05/28/2024 10:45 AM CDT Office Visit Department of Cardiovascular Diseases in [place], [place] [address] [place] [phone] Vitor Calle M.D. [address] [place] [phone] Scheduled Referrals Name Type Priority Associated Diagnoses [...] CDT Vitor Calle M.D. LAB BLOOD ADD-ON [facility] [address] [place] [address], [facility] in [place] [address] [place] [address] * Creatinine with Estimated GFR (01/15/2024 11:41 AM CDT) Creatinine 0.72 0.59 - 1.04 mg/dL 01/15/2024 2:15 PM CDT OWAT Estimated GFR (eGFR) 86 >=60 mL/min/BSA 01/15/2024 2:15 PM CDT OWAT Comment: Estimated GFR calculated using the 2020 CKD_EPI creatinine equation. Blood (Blood, Venous) 01/15/2024 11:41 AM CDT 01/15/2024 1:31 PM CDT Vitor Calle M.D. LAB BLOOD ADD-ON [facility] [address] [place] [address], [facility] in [place] [address] [place] [address] * Potassium (01/15/2024 11:41 AM CDT) Potassium, P 4.5 3.6 - 5.2 mmol/L 01/15/2024 2:15 PM CDT OWAT Blood (Blood, Venous) 01/15/2024 11:41 AM CDT 01/15/2024 1:31 PM CDT Vitor Calle M.D. LAB BLOOD ADD-ON [facility] [address] [place] [address], [facility] in [place] [address] [place] [address] * Sodium (01/15/2024 11:41 AM CDT) Sodium, P 139 135 - 145 mmol/L 01/15/2024 2:15 PM CDT OWAT Blood (Blood, Venous) 01/15/2024 11:41 AM CDT 01/15/2024 1:31 PM CDT Vitor Calle M.D. LAB BLOOD ADD-ON [facility] [address] [place] [address], [facility] in [place] [address] [place] [address] documented in this encounter Visit Diagnoses Diagnosis Dyspnea Multifactorial- Primary documented in this encounter Additional Health Concerns Assessment Noted Time PHQ-9 Depression Total Score: 6 08/15/20 22 2:06 AM STAFF DESIGN ENGINEER documented as of this encounter Care Teams Moisture Conditioner Operator Relationship Specialty Start Date End Date Erinn Reina M.D. [address] [place] [address], [place] [phone] PCP - General Family Medicine 09/08/21 documented as of this encounter
--- OUTSIDE RECORDS SUMMARY | 2024-04-10 15:00 | XMS_ITS | Encounter Summary ---
Author Organization [facility] Address [address] [place] [address] Care Team Providers Care Dock Guard Name Role Phone Erinn Reina M.D. Primary Care Provider Encounter Details Date Type Department Care Team (Latest Contact Info) Description 01/15/2024 11:30 AM CDT - 01/15/2024 11:59 PM CDT Hospital Encounter Department of Laboratory Medicine in [place], [place] [address] [place] [address] Vitor Calle M.D. [address] [place] [phone] Dyspnea Multifactorial; Anemia Iron Deficiency Discharge Disposition: [...] How often do you attend chur or lutheran services? 1 to 4 times per year 03/05/2022 Do you belong to any clubs o r organizations such as anabaptism groups, unions, fraternal or athletic groups, or [...] your living situation today? I have a [facility] place to live 04/10/2023 Education Answer Date Recorded What is the highest level of school you have completed or the highest degree you have received? 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 fluticasone propionate (FLONASE) 50 mcg/actuation nasal sprayIndications:Cough Post Infectious (Cough Subacute) SHAKE LIQUID AND USE 2 SPRAYS IN EACH NOSTRIL DAILY 48 g 3 2023 fluticasone-umeclidiniu m-vilanterol (Trelegy Ellipta) 100-62.5-25 mcg/actuation inhalerIndications:Double End Tenon Operator padmini Obstructive Pulmonary Disease Moderate (HCC) Inhale 1 puff once daily. 60 each 11 11/08/2023 ipratropium-albuteroL (DUONEB) 0.5-2.5 mg/3 mL nebulizer solution Inhale 3 mL by nebulization 4 (four) times a day as needed for wheezing or shortness of breath. 180 mL 2 02/13/2023 rosuvastatin (CRESTOR) 10 mg tablet Take 1 tablet (10 mg total) by mouth daily. 90 tablet 3 10/09/2023 10/08/2024 spironolactone (ALDACTONE) 25 mg tablet Take 0.5 tablets (12.5 mg total) by mouth daily. 45 tablet 1 01/08/2024 torsemide (DEMADEX) 20 mg tablet Take 20 mg by mouth daily. 01/19/2023 Ventolin HFA 90 mcg/actuation inhalerIndications:Double End Tenon Operator padmini Obstructive Pulmonary Disease (HCC),Dyspnea Multifactorial Inhale 2 puffs every 4 (four) hours as needed for wheezing or shortness of breath. 18 g 11 11/08/2023 11/07/2024 DULoxetine (CYMBALTA) [address] capsule Take 30 mg by mouth daily. 06/05/2021 04/10/2024 lidocaine (LIDODERM) 5 % Place 1 patch on the skin daily. 05/28/2023 04/10/2024 documented as of this encounter Plan of Treatment Upcoming Encounters Date Type Department Care Team (Latest Contact Info) Description 04/14/2024 12:45 PM CDT Clinical Support Department of Physical Medicine and Rehabilitation in [place] [address] [place] [address] Rod Collins M.D. [address] [place] [phone] Elana Winters, P.T. [address] [place] [phone] 04/21/2024 12:45 PM CDT Clinical Support Department of Physical Medicine and Rehabilitation in [place], [place] [address] [place] [address] Rod Collins M.D. [address] [place] [phone] Elana Winters, P.T. [address] [place] [phone] 04/28/2024 12:45 PM CDT Clinical Support Department of Physical Medicine and Rehabilitation in [place], [place] [address] [place] [address] Rod Collins M.D. [address] [place] [phone] Elana Winters P, P.T. [address] [place] [phone] 05/11/2024 8:30 AM CDT Appointment Department of Radiology, [place], [place] [address] [place] [phone] Tony Schwartz P.AAnn-Marie-CAnn-Marie [address] [place] [phone] Discharge Disposition: Home or Self Care 05/11/2024 11:00 AM CDT Appointment Department of Laboratory Medicine and Pathology, [place], [place] [address] [place] [phone] Tony Schwartz PAnn-MarieAAnn-Marie-CAnn-Marie [address] [place] [phone] 05/11/2024 12:15 PM CDT Appointment Department of Radiology, [facility], in [place], [place] [address] [place] [address] Tony Schwartz P.A.-C. [address] [place] [phone] 05/11/2024 2:45 PM CDT Appointment Department of Radiology, [facility], in [place], [place] [address] [place] [address] Tony Schwartz P.A.-C. [address] [place] [phone] 05/12/2024 4:00 PM CDT Office Visit Department of Vascular Medicine in [place], [place] [address] [place] [address] Tony Schwartz P.A.-C. [address] [place] [phone] 05/28/2024 10:45 AM CDT Office Visit Department of Cardiovascular Diseases in [place], [place] [address] [place] [address] Vitor Calle M.D. [address] [place] [phone] documented as of this encounter Procedures [...] CDT Tony Schwartz P.A.-C. LAB BLOOD ADD-ON [facility] [address] [place] [address], [facility] AUST [facility] - [facility] [address] [place] [address] * (ABNORMAL) Ferritin (01/15/2024 11:41 AM CDT) Ferritin, S 347(H) 11 - 328 mcg/L 01/15/2024 2:25 PM CDT OWAT Comment: Biotin has been identified by the psychiatric registered nurse as a potential interfering substance. Higher concentrations of biotin may be found in multivitamins, hair/nail supplements, and workout supplements. If the result does not match clinical observations, repeat testing after patient refrains from the use of supplements for at least 12 hours. Blood (Blood, Venous) 01/15/2024 11:41 AM CDT 01/15/2024 1:31 PM CDT Tony Schwartz P.A.-C. LAB BLOOD ADD-ON [facility] [address] [place] [address], [facility] OWAT [facility] in [place] [address] [place] [address] * (ABNORMAL) CBC with Differential, Blood (01/15/2024 [...] P.A.-C. LAB BLOOD ADD-ON Performing Organization Address City/[facility] Co de Phone Number [facility] [address] [place] [address], [facility] FB60 [facility] in [place] [address] [place] [address] * NT-Pro B-Type Natriuretic Peptide (BNP) (01/15/2024 [...] M.D. LAB BLOOD ADD-ON Performing Organization Address City/[facility]/ZIP Co de Phone Number [facility] [address] [place] [address], [place] OWAT [facility] in [place] [address] [place] [address] * Creatinine with Estimated GFR (01/15/2024 11:41 AM CDT) Creatinine 0.72 0.59 - 1.04 mg/dL 01/15/2024 2:15 PM CDT OWAT Estimated GFR (eGFR) 86 >=60 mL/min/BSA 01/15/2024 2:15 PM CDT OWAT Comment: Estimated GFR calculated using the 2020 CKD_EPI creatinine equation. Blood (Blood, Venous) 01/15/2024 11:41 AM CDT 01/15/2024 1:31 PM CDT Vitor Calle M.D. LAB BLOOD ADD-ON [facility] [address] [place] [address], [facility] OWAT [facility] in [place] [address] [place] [address] * Potassium (01/15/2024 11:41 AM CDT) Potassium, P 4.5 3.6 - 5.2 mmol/L 01/15/2024 2:15 PM CDT OWAT Blood (Blood, Venous) 01/15/2024 11:41 AM CDT 01/15/2024 1:31 PM CDT Vitor Calle M.D. LAB BLOOD ADD-ON Performing Organization Address [facility]/ZIP Co de Phone Number [facility] [address] [place] [address], [facility] OWAT [facility] in [place] [address] [place] [address] * Sodium (01/15/2024 11:41 AM CDT) Sodium, P 139 135 - 145 mmol/L 01/15/2024 2:15 PM CDT OWAT Blood (Blood, Venous) 01/15/2024 11:41 AM CDT 01/15/2024 1:31 PM CDT Vitor Calle M.D. LAB BLOOD ADD-ON [facility] [address] [place] [address], [facility] OWAT [facility] in [place] [place] [address] documented in this encounter Visit Diagnoses Diagnosis Dyspnea Multifactorial Anemia Iron Deficiency documented in this encounter Additional Health Concerns Assessment Noted Time PHQ-9 Depression Total Score: 6 08/15/20 22 2:06 AM AIRPORT OPERATIONS MANAGER documented as of this encounter Care Teams Dock Guard Relationship Specialty Start Date End Date Erinn Reina M.D. [address] [place] [address] [place] [address] PCP - General Family Medicine 09/08/21 documented as of this encounter
--- OUTSIDE RECORDS SUMMARY | 2024-04-10 15:00 | XMS_ITS | Encounter Summary ---
Author Organization [facility] Address [address] [place] [address] Care Team Providers Care Collections Analyst Name Role Phone Erinn Reina M.D. Primary Care Provider [phone] Reason for Visit * Physical Therapy (Routine) - Canceled Specialty Diagnoses / Procedures Referred By Osorio guevara Referred To Contact Diagnoses Fibromyalgia Pain Low Back Unspecified Procedures PT Ongoing treatment Tony Schwartz P.AAnn-Marie-CAnn-Marie [address] [place] [address] [facility] Region Referral ID Status Reason Start Date Expiration Date V isits Requested Visits Authorized [id number] Canceled 06/07/2023 06/06/2024 99 99 Encounter Details Date Type Department Care Team (Latest Contact Info) Description 01/06/2024 12:30 PM CDT Clinical Support Department of Physical Medicine and Rehabilitation in [place], [place] [address] [place] [phone] Tony Schwartz, P.A.-CAnn-Marie [address] [place] [phone] Elana Winters, P.TAnn-Marie [address] [place] [phone] Fibromyalgia; Pain Low Back Unspecified Social History [...] How often do you attend chur or anabaptism services? 1 to 4 times per year [...] Score 1 08/15/2022 [facility] - Occupational Stress Questionnaire Answer Date [...] Sex Assigned at Female 10/24/2023 10:51 PM ACID MAKER Gender Identity Female 02/10/2019 11:51 AM [...] she has a scheduled appointment with her lasting floorworker this week. 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 Patient verbalizes she remembers the exercises. A Curated World: [email or web address] Access Code: [email or web address] Patient reports fair HEP [...] Department of Physical Medicine and Rehabilitation in [address] [phone] Rod Collins M.D. [address] [place] [address] Elana Winters P, P.T. [address] [place] [address] 04/21/2024 12:45 PM CDT Clinical Support Department of Physical Medicine and Rehabilitation in [place], [place] [address] [place] [address] Rod Collins M.D. [address] [place] [address] Elana Winters, P.T. [address] [place] [address] 04/28/2024 12:45 PM CDT Clinical Support Department of Physical Medicine and Rehabilitation in [place], [place] [address] [place] [address] Rod Collins M.D. [address] [place] [phone] Elana Winters, P.T. [address] [place] [phone] 05/11/2024 8:30 AM CDT Appointment Department of Radiology, [place], [place] [address] [place] [address] Tony Schwartz P.A.-CAnn-Marie [address] [place] [phone] Discharge Disposition: Home or Self Care 05/11/2024 11:00 AM CDT Appointment Department of Laboratory Medicine and Pathology, [facility] in [place], [place] [address] [place] [address] MeverTony appiah P.A.-C. [address] [place] [phone] 05/11/2024 12:15 PM CDT Appointment Department of Radiology, [facility], in [place], [place] [address] [place] [address] Tony Schwartz P.A.-C. [address] [place] [phone] 05/11/2024 2:45 PM CDT Appointment Department of Radiology, [facility], in [place], [place] [address] [place] [phone] Tony Schwartz P.A.-C. [address] [place] [phone] 05/12/2024 4:00 PM CDT Office Visit Department of Vascular Medicine in [place], [place] [address] [place] [address] Tony Schwartz P.A.-C. [address] [place] [phone] 05/28/2024 10:45 AM CDT Office Visit Department of Cardiovascular Diseases in [place], [place] [address] [place] [address] Vitor Calle M.D. [address] [place] [phone] documented as of this encounter Visit Diagnoses Diagnosis Fibromyalgia Pain Low Back Unspecified documented in this encounter Additional Health Concerns Assessment Noted Time PHQ-9 Depression Total Score: 6 08/15/20 22 2:06 AM ACID MAKER documented as of this encounter Care Teams Collections Analyst Relationship Specialty Start Date End Date Erinn Reina M.D. [address] [place] [address] PCP - General Family Medicine 09/08/21 documented as of this encounter
--- OUTSIDE RECORDS SUMMARY | 2024-04-10 15:00 | XMS_ITS | Encounter Summary ---
Author Organization [facility] Address [address] [place] [address] Care Team Providers Care Multimedia Specialist Name Role Phone Erinn Reina M.D. Primary Care Provider Reason for Referral * Outpatient (Routine) - Authorized Specialty Diagnoses / Procedures Referred By Osorio guevara Referred To Contact Erinn Reina M.D. [address] [place] [phone] [facility] Region Referral ID Status Reason Start Date Expiration Date V isits Requested Visits Authorized [id number] Authorized 01/07/2024 07/08/2025 1 1 Scheduling Instructions Nurse AWV Do not schedule prior to due date to ensure insurance coverage Visit: Medicare Annual Wellness Never done. * Outpatient (Routine) - Authorized Specialty Diagnoses / Procedures Referred By Osorio guevara Referred To Contact Family Medicine Erinn Reina M.D. [address] [place] [address] [facility] Region Referral ID Status Reason Start Date Expiration Date V isits Requested Visits Authorized [id number] Authorized 01/07/2024 07/08/2025 1 1 Scheduling Instructions Medicare annual provider visit/HCC gaps Do not schedule prior to due date to ensure insurance coverage Visit: Medicare Annual Wellness Never done. Encounter Details Date Type Department Care Team (Late st Contact Info) Description 01/07/2024 Orders Only [facility] [place] Erinn Reina M.D. 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 [address] [place] [address] Elana Winters P, P.T. [address] [place] [address] 04/21/2024 12:45 PM CDT Clinical Support Department of Physical Medicine and Rehabilitation in [place], [place] [address] [place] [address] Rod Collins M.D. [address] [place] [address] Elana Winters P, P.T. [address] [place] [address] 04/28/2024 12:45 PM CDT Clinical Support Department of Physical Medicine and Rehabilitation in [place], [place] [address] [place] [address] Rod Collins M.D. [address] [place] [address] Elana Winters, PAnn-MarieT. [address] [place] [address] 05/11/2024 8:30 AM CDT Appointment Department of Radiology, [facility], in [place], [place] [address] [place] [phone] Tony Schwartz P.A.-C. [address] [place] [phone] Discharge Disposition: Home or Self Care 05/11/2024 11:00 AM CDT Appointment Department of Laboratory Medicine and Pathology, [facility] in [place], [place] [address] [place] [phone] Tony Schwartz P.A.-C. [address] [place] [phone] 05/11/2024 12:15 PM CDT Appointment Department of Radiology, [facility], in [place], [place] [address] [place] [phone] Tony Schwartz P.A.-C. [address] [place] [phone] 05/11/2024 2:45 PM CDT Appointment Department of Radiology, [facility], in [place], [place] [address] [place] [address] Tony Schwartz P.A.-C. [address] [place] [phone] 05/12/2024 4:00 PM CDT Office Visit Department of Vascular Medicine in [place], [place] [address] [place] [phone] Tony Schwartz P.A.-C. [address] [place] [phone] 05/28/2024 10:45 AM CDT Office Visit Department of Cardiovascular Diseases in [place], [place] [address] [place] [address] Vitor Calle M.D. [address] [place] [phone] Scheduled Referrals Name Type Priority Associated Diagnoses Orde r Schedule Family Medicine office visit (clinic) Outpatient Referral Routine Expected: 02/04/2024, Expires: 07/05/2024 Primary Care nurse visit (clinic) - [facility]; Medicare Annual Wellness Outpatient Referral Routine Expected: 02/04/2024, Expires: 07/05/2024 documented as of this encounter Visit Diagnoses Not on filedocumented in this encounter Additional Health Concerns Assessment Noted Time PHQ-9 Depression Total Score: 6 08/15/20 22 2:06 AM GLASS CLEANING MACHINE TENDER documented as of this encounter Care Teams Multimedia Specialist Relationship Specialty Start Date End Date Erinn Reina M.D. [address] [place] [address] PCP - General Family Medicine 09/08/21 documented as of this encounter
--- OUTSIDE RECORDS SUMMARY | 2024-04-10 15:00 | XMS_ITS | Encounter Summary ---
Author Organization [facility] Address [address] [place] [address] Care Team Providers Care Presser All Around Name Role Phone Erinn Reina M.D. Primary Care Provider [phone] Encounter Details Date Type Department Care Team (Late st Contact Info) Description 01/09/2024 Orders Only Department of Vascular Medicine in [place], [place] [address] [place] [address] Tony Schwartz P.A.-C. [address] [place] [phone] Anemia Iron Deficiency (Primary Dx) Social History [...] r organizations such as mormon groups, unions, fraWallit or athletic groups, or school groups? No [...] Answer Date Recorded PHQ-2 Score 1 08/15/2022 [facility] - Occupational Stress Questionnaire Answer Date [...] your living situation today? I have a [facility] place to live 04/10/2023 Education Answer Date Recorded What is the highest level of school you have completed or the highest degree you have received? 12th grade 04/14/2019 Sex and Gender Information Value Date Recorded Sex Assigned at Female 10/24/2023 10:51 PM ASSISTANT CLINICAL NURSE MANAGER Gender Identity Female 02/10/2019 11:51 AM CDT Sexual Orientation Straight 02/10/2019 11 :51 AM CDT documented as of this encounter Plan of Treatment Upcoming Encounters Date Type Department Care Team (Latest Contact Info) Description 04/14/2024 12:45 PM CDT Clinical Support Department of Physical Medicine and Rehabilitation in [place], [place] [address] [place] [address] Rod Collins M.D. [address] [place] [address] Elana Winters, P.T. [address] [place] [address] 04/21/2024 12:45 PM CDT Clinical Support Department of Physical Medicine and Rehabilitation in [place], [place] [address] [place] [address] Rod Collins M.D. [address] [place] [phone] Elana Winters, P.T. [address] [place] [address] 04/28/2024 12:45 PM CDT Clinical Support Department of Physical Medicine and Rehabilitation in [place], [place] [address] [place] [address] Rod Collins M.D. [address] [place] [phone] Elana Winters, P.TAnn-Marie [address] [place] [address] 05/11/2024 8:30 AM CDT Appointment Department of Radiology, [place], [place] [address] [place] [phone] Tony Schwartz P.A.-CAnn-Marie [address] [place] [phone] Discharge Disposition: Home or Self Care 05/11/2024 11:00 AM CDT Appointment Department of Laboratory Medicine and Pathology, [place], [place] [address] [place] [phone] Tony Schwartz P.A.-CAnn-Marie [address] [place] [phone] 05/11/2024 12:15 PM CDT Appointment Department of Radiology, [facility] in [place], [place] [address] [place] [phone] Tony Schwartz P.A.-CAnn-Marie [address] [place] [phone] 05/11/2024 2:45 PM CDT Appointment Department of Radiology, [facility], in [place], [place] [address] [place] [address] Tony Schwartz P.A.-C. [address] [place] [phone] 05/12/2024 4:00 PM CDT Office Visit Department of Vascular Medicine in [place], [place] [address] [place] [address] Tony Schwartz P.A.-C. [address] [place] [address] 05/28/2024 10:45 AM CDT Office Visit Department of Cardiovascular Diseases in [place], [place] [address] [place] [phone] Vitor Calle M.D. [address] [place] [phone] documented as of this encounter Results * (ABNORMAL) Iron and Total Iron-Binding Capacity (01/15/2024 11:41 AM CDT) [facility] Signature Iron 45 35 - 145 mcg/dL 01/15/2024 3:26 PM CDT [facility] Total Iron Binding Capacity 224(L) 250 - 400 mcg/dL 01/15/2024 3:26 PM CDT [facility] Percent Saturation 20 14 - 50 % 01/15/2024 3:26 PM CDT [facility] Blood (Blood, Venous) 01/15/2024 11:41 AM CDT 01/15/2024 3:07 PM CDT Tony Schwartz P.A.-C. LAB BLOOD ADD-ON [facility] [address] [place] [address], [facility] AUST [facility] [address] [place] [address] * (ABNORMAL) Ferritin (01/15/2024 11:41 AM CDT) Ferritin, S 347(H) 11 - 328 mcg/L 01/15/2024 2:25 PM CDT OWAT Comment: Biotin has been identified by the physical sciences professor as a potential interfering substance. Higher concentrations of biotin may be found in multivitamins, hair/nail supplements, and workout supplements. If the result does not match clinical observations, repeat testing after patient refrains from the use of supplements for at least 12 hours. Blood (Blood, Venous) 01/15/2024 11:41 AM CDT 01/15/2024 1:31 PM CDT Tony Schwartz P.A.-C. LAB BLOOD ADD-ON [facility] [address] [place] [address], [facility] OWAT [facility] in [place] [address] [place] [phone] * (ABNORMAL) CBC with Differential, Blood (01/15/2024 11:41 AM CDT) Pathologist [facility] Hemoglobin 12.3 11.6 - 15.0 g/dL 01/15/2024 [...] CDT Tony Schwartz P.A.-C. LAB BLOOD ADD-ON [facility] [address] [place] [address], [facility] FB60 [facility] [place] [address] [place] [address] documented in this encounter Visit Diagnoses Diagnosis Anemia Iron Deficiency- Primary documented in this encounter Additional Health Concerns Assessment Noted Time PHQ-9 Depression Total Score: 6 08/15/20 22 2:06 AM ASSISTANT CLINICAL NURSE MANAGER documented as of this encounter Care Teams Presser All Around Relationship Specialty Start Date End Date Erinn Reina M.D. [address] [place] [address] PCP - General Family Medicine 09/08/21 documented as of this encounter
--- OUTSIDE RECORDS SUMMARY | 2024-04-10 15:00 | XMS_ITS | Encounter Summary ---
Author Organization [facility] Address [address] [place] [address] Care Team Providers Care Mergers And Acquisitions Consultant Name Role Phone Erinn Reina M.D. Primary Care Provider Reason for Referral * Cardiovascular-Diagnostic (Routine) - Closed Specialty Diagnoses / Procedures Referred By Contac t Referred To Contact Diagnoses Dilated Aortic Root (HCC) Dyspnea Multifactorial Procedures Echo Transthoracic (TTE) Vitor Calle M.D. [address] [place] [address] [facility] Referral ID Status Reason Start Date Expiration Date Visits Re quested Visits Authorized [id number] Closed 10/09/2023 10/08/2024 1 1 Reason for Visit * Cardiovascular-Diagnostic (Routine) - Closed Specialty Diagnoses / Procedures Referred By Osorio guevara Referred To Contact Diagnoses Dilated Aortic Root (HCC) Dyspnea Multifactorial Procedures Echo Transthoracic (TTE) Vitor Calle M.D. [address] [place] [address] [facility] Region Referral ID Status Reason Start Date Expiration Date Visits Re quested Visits Authorized [id number] Closed 10/09/2023 10/08/2024 1 1 Encounter Details Date Type Department Care Team (Latest Contact Info) Description 01/01/2024 1:14 PM CDT - 01/01/2024 11:59 PM CDT Hospital Encounter Department of Cardiovascular Diseases in [place], [place] [address] [facility] [place] [id number] Vitor Calle M.D. 300 [facility] [place] [id number] Dilated Aortic Root (HCC); Dyspnea Multifactorial Discharge [...] often do you attend chur ch or rastafari services? 1 to 4 times per year 03/05/2022 Do you belong to any clubs o r organizations such as zoroastrianism groups, unions, fraternal or athletic groups, or [...] Answer Date Recorded PHQ-2 Score 1 08/15/2022 [facility] [place] of Occupat ional Health - Occupational Stress [...] Assigned at Female 10/24/2023 10:51 PM SENIOR PROCESS ANALYST Gender Identity Female 02/10/2019 11:51 AM [...] fluticasone-umeclidiniu m-vilanterol (Trelegy Ellipta) 100-62.5-25 mcg/actuation inhalerIndications:Air Pollution Engineer padmini Obstructive Pulmonary Disease Moderate (HCC) Inhale [...] daily. 01/19/2023 Ventolin HFA 90 mcg/actuation inhalerIndications:Air Pollution Engineer padmini Obstructive Pulmonary Disease (HCC),Dyspnea Multifactorial Inhale [...] Department of Physical Medicine and Rehabilitation in [place], [place] [address] [place] [address] Rod Collins M.D. [address] [place] [address] Elana Winters P, P.T. [address] [place] [phone] 04/21/2024 12:45 PM CDT Clinical Support Department of Physical Medicine and Rehabilitation in [place], [place] [address] [place] [address] Rod Collins M.D. [address] [place] [phone] Elana Winters P, P.T. [address] [place] [phone] 04/28/2024 12:45 PM CDT Clinical Support Department of Physical Medicine and Rehabilitation in [place], [place] [address] [place] [address] Rod Collins M.D. [address] [place] [phone] Elana Winters, P.Sharifa. [address] [place] [phone] 05/11/2024 8:30 AM CDT Appointment Department of Radiology, [facility], in [place], [place] [address] [place] [phone] Tony Schwartz P.A.-C. [address] [place] [phone] Discharge Disposition: Home or Self Care 05/11/2024 11:00 AM CDT Appointment Department of Laboratory Medicine and Pathology, [facility] in [place], [place] [address] [place] [phone] Tony Schwartz P.A.-C. [address] [place] [phone] 05/11/2024 12:15 PM CDT Appointment Department of Radiology, [facility], in [place], [place] [address] [place] [address] Tony Schwartz P.A.-C. [address] [place] [phone] 05/11/2024 2:45 PM CDT Appointment Department of Radiology, [facility], in [place], [place] [address] [place] [address] Tony Schwartz P.A.-C. [address] [place] [phone] 05/12/2024 4:00 PM CDT Office Visit Department of Vascular Medicine in [place], [place] [address] [place] [phone] Tony Schwartz P.A.-C. [address] [place] [address] 05/28/2024 10:45 AM CDT Office Visit Department of Cardiovascular Diseases in [place], [place] [address] [place] [phone] Vitor Calle M.D. [address] [place] [address] documented as of this encounter Procedures [...] ratio). Calculated 2-D linear left ventricular ejection [id number]%. No regional wall motion abnormalities. Grade 1a/3 [...] complete report, see the Order-Level Documents. Vitor S Pessanha M.D. CV ECHO PROCEDURES documented in this encounter Visit Diagnoses Diagnosis Dilated Aortic Root (HCC) Dyspnea Multifactorial documented in this encounter Additional Health Concerns Assessment Noted Time PHQ-9 Depression Total Score: 6 08/15/20 22 2:06 AM SENIOR PROCESS ANALYST documented as of this encounter Care Teams Mergers And Acquisitions Consultant Relationship Specialty Start Date End Date Erinn Reina M.D. [address] [place] [phone] PCP - General Family Medicine 09/08/21 documented as of this encounter
== END 2024-04-10 14:53 | disposition home or self-care (01) ==
PROVIDERS: PCP Family Medicine; Visit Provider Family Medicine
DX: D64.9 Anemia, unspecified (principal); R06.00 Dyspnea, unspecified; I48.0 Paroxysmal atrial fibrillation
CPT/HCPCS: 80053; 82728

== ENCOUNTER 2024-04-24 10:19 | Outpatient (RCR) | payer MEDICARE, BC, SELFPAY ==
--- NOTE | 2024-04-14 12:00 | ONC.NURNOTE ---
Dx: Iron Deficiency Anemia
[2024-04-24 10:34] VITALS: BP 85/62; PULSE 123; RESP 16; TEMP 37; O2SAT 97
[2024-04-24] MEDS: SODIUM CHLORIDE 0.9 % (FLUSH) 10 ML SYRINGE IVF (11:10)
[2024-04-24 11:13] VITALS: BP 102/75
[2024-04-24] MEDS: IRON DEXTRAN COMPLEX 25 MG in 0.9 % SODIUM CHLORIDE 100 ml 100 ML 400 MG IVPB (11:14)
[2024-04-24] MEDS: 0.9 % SODIUM CHLORIDE 250 ml IV (11:14)
[2024-04-24 11:49] VITALS: BP 102/74; PULSE 102; RESP 16; TEMP 37.1; O2SAT 94
[2024-04-24] MEDS: IRON DEXTRAN COMPLEX 975 MG in 0.9 % SODIUM CHLORIDE 250 ml 250 ML 186 MG IVPB (12:44)
[2024-04-24 14:18] VITALS: PULSE 96; RESP 24; TEMP 36.6; O2SAT 94
[2024-04-24 14:55] VITALS: BP 120/84; PULSE 78; RESP 22; TEMP 36.9; O2SAT 91
== END 2024-10-21 23:59 | disposition home or self-care (01) ==
LOC: CCIC 10:19
PROVIDERS: PCP Family Medicine; Referring Provider Internal Medicine; Visit Provider Clinical Nurse Specialist
DX: D50.9 Iron deficiency anemia, unspecified (principal)
CPT/HCPCS: 96365; 96366; 96376; J1750; J7050